=== PATIENT | male | born 1965 | race American Indian/Alaskan Native ===

== ENCOUNTER 2016-04-17 23:06 | Emergency (ER) | payer SELFPAY ==
[2016-04-17 23:55] VITALS: BP 115/71
[2016-04-18] MEDS ORDERED: TYLENOL #3 PO ONE (01:23)
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
--- NOTE | 2016-04-18 01:47 | XRay Report ---
FINAL REPORT PROCEDURE: XR ANKLE 3 LT TECHNIQUE: LEFT ankle radiographs, AP, lateral, and oblique views. CPT 25075 HISTORY: fall/pain COMPARISON: No prior studies are available for comparison. FINDINGS: Fracture (s) and/or Dislocation(s): None. Alignment: The alignment is normal. Mild spur formation off of the distal tibia.. Joint space(s): Normal. Soft tissues: Minimal soft tissue swelling. Bone mineralization: Normal. Foreign bodies: None. Calcaneal spurring: None. IMPRESSION: There is no evidence of an acute fracture. Mild arthritis..
[2016-04-18] MEDS ORDERED: TRIPLE ANTIBIOTIC TP ONE (02:28)
== END 2016-04-18 02:55 | disposition home or self-care (01) ==
LOC: ED 23:06
DX: S01.511A Laceration without foreign body of lip, initial encounter (principal); S93.402A Sprain of unspecified ligament of left ankle, initial encounter; E11.9 Type 2 diabetes mellitus without complications; Z90.49 Acquired absence of other specified parts of digestive tract; F17.200 Nicotine dependence, unspecified, uncomplicated; W18.30XA Fall on same level, unspecified, initial encounter; Y93.9 Activity, unspecified; Y92.9 Unspecified place or not applicable; Y99.9 Unspecified external cause status
CPT/HCPCS: 82962; A6250

== ENCOUNTER 2016-05-07 21:55 | Emergency (ER) | payer SELFPAY ==
[2016-05-08] MEDS ORDERED: MOTRIN PO ONE (03:56)
--- NOTE | 2016-05-08 03:56 | Emergency Department Report ---
ED Lower Extremity HPI - General Chief Complaint: Extremity Injury, Lower Stated Complaint: RT KNEE PAIN Time Seen by Provider: 05/08/16 03:51 Source: patient Mode of arrival: Ambulatory Limitations: No Limitations - Related Data Previous Rx's Medication Instructions Recorded Last Taken Type Cephalexin [Keflex] 500 mg PO Q12HR #14 cap 04/18/16 Unknown Rx methOCARBAMOL [Robaxin TAB] 500 mg PO BID #20 tab 04/18/16 Unknown Rx Ibuprofen [Motrin 800 MG tab] 800 mg PO Q8HR PRN #30 tablet 05/08/16 Unknown Rx Allergies Allergy/AdvReac Type Severity Reaction Status Date / Time No Known Allergies Allergy Verified 11/29/14 22:56 ED Review of Systems ROS: Stated complaint: RT KNEE PAIN Other details as noted in HPI ED Past Medical Hx - Past Medical History Hx Diabetes: Yes - Surgical History Hx Appendectomy: Yes Additional Surgical History: HERNIA SURGERY - Social History Smoking Status: Light Tobacco Smoker Substance Use Type: Alcohol - Medications Home Medications: Home Medications Medication Instructions Recorded Confirmed Last Taken Type Cephalexin [Keflex] 500 mg PO Q12HR #14 cap 04/18/16 Unknown Rx methOCARBAMOL [Robaxin TAB] 500 mg PO BID #20 tab 04/18/16 Unknown Rx Ibuprofen [Motrin 800 MG tab] 800 mg PO Q8HR PRN #30 tablet 05/08/16 Unknown Rx ED Physical Exam - General Limitations: No Limitations General appearance: alert, in no apparent distress - Expanded Lower Extremity Exam Right Knee exam: Present: tenderness, swelling, pain/laxity with valgus, pain/laxity with varus. Absent: abrasion, laceration, deformity, crepidus, dislocation, erythema, full knee extension ED Course Vital Signs 05/07/16 05/08/16 22:11 03:30 Temperature 98.3 F 98.1 F Pulse Rate 100 H 93 H Respiratory 18 18 Rate Blood Pressure 108/66 Blood Pressure 106/73 [Left] O2 Sat by Pulse 98 98 Oximetry ED Lower Extremity MDM - Radiology Data Radiology results: image reviewed FINAL REPORT EXAM: XR KNEE 1-2V RT HISTORY: fall with knee pain and swelling TECHNIQUE: 2 views of the right knee. PRIORS: None FINDINGS: Joint spaces are maintained. Small joint effusion. There is an osseous density 10 x 3 mm superficial to the patella. This appears well-corticated and may relate to a remote injury. There is some soft tissue swelling superficial to the patella as well. IMPRESSION: 1. Prepatellar soft tissue swelling. Small joint effusion. Osseous density superficial of the patella appears to be chronic, correlate for point tenderness. Critical care attestation.: If time is entered above; I have spent that time in minutes in the direct care of this critically ill patient, excluding procedure time. ED Disposition Clinical Impression: Knee pain, acute Qualifiers: Laterality: right Qualified Code(s): M25.561 - Pain in right knee Disposition: DISCHARGED TO HOME OR SELFCARE Is pt being admited?: No Does the pt Need Aspirin: No Condition: Stable Additional Instructions: It's very important for you to follow with orthopedic within 3-4 days. Take ibuprofen as prescribed. Prescriptions: Ibuprofen [Motrin 800 MG tab] 800 mg PO Q8HR PRN #30 tablet PRN Reason: Pain Referrals: PRIMARY MD DASIA [Primary Care Provider] - 3-5 Days ROMY FELIX MD [Staff Physician] - 3-5 Days IVAN MOSQUEDA MD [Staff Physician] - 3-5 Days Forms: Work/School Release Form(ED)
--- NOTE | 2016-05-08 04:54 | XRay Report ---
FINAL REPORT EXAM: XR KNEE 1-2V RT HISTORY: fall with knee pain and swelling TECHNIQUE: 2 views of the right knee. PRIORS: None FINDINGS: Joint spaces are maintained. Small joint effusion. There is an osseous density 10 x 3 mm superficial to the patella. This appears well-corticated and may relate to a remote injury. There is some soft tissue swelling superficial to the patella as well. IMPRESSION: 1. Prepatellar soft tissue swelling. Small joint effusion. Osseous density superficial of the patella appears to be chronic, correlate for point tenderness.
[2016-05-08 05:25] VITALS: BP 110/72
== END 2016-05-08 05:22 | disposition home or self-care (01) ==
LOC: ED 21:55
DX: M25.561 Pain in right knee (principal); E11.9 Type 2 diabetes mellitus without complications; F17.200 Nicotine dependence, unspecified, uncomplicated; Z90.49 Acquired absence of other specified parts of digestive tract

== ENCOUNTER 2016-09-17 22:13 | Emergency (ER) | payer SELFPAY ==
[2016-09-17 22:30] VITALS: BP 114/76
== END 2016-09-18 01:52 | disposition left against medical advice (07) ==
LOC: ED 22:13
DX: K13.79 Other lesions of oral mucosa (principal); Z53.21 Procedure and treatment not carried out due to patient leaving prior to being seen by health care provider

== ENCOUNTER 2016-09-18 23:40 | Emergency (ER) | payer SELFPAY ==
--- NOTE | 2016-09-19 04:13 | Emergency Department Report ---
ED ENT HPI - General Chief complaint: Dental/Oral Stated complaint: ABSCESS IN MOUTH/SWELLILNG Time Seen by Provider: 09/19/16 03:50 Source: patient Mode of arrival: Ambulatory Limitations: No Limitations - History of Present Illness complaint: tooth pain Onset/Timin -: week(s) Location: tooth # (18 &31) Severity: moderate Severity scale (0 -10): 4 Quality: aching, sharp Consistency: constant Improves with: none Worsens with: eating Context- Dental: history of dental caries Associated Symptoms: toothache - Related Data Previous Rx's Medication Instructions Recorded Last Taken Type Cephalexin [Keflex] 500 mg PO Q12HR #14 cap 04/18/16 Unknown Rx methOCARBAMOL [Robaxin TAB] 500 mg PO BID #20 tab 04/18/16 Unknown Rx Ibuprofen [Motrin 800 MG tab] 800 mg PO Q8HR PRN #30 tablet 05/08/16 Unknown Rx Ibuprofen [Motrin 800 MG tab] 800 mg PO Q8HR PRN #30 tablet 09/19/16 Unknown Rx Penicillin Vk [Veetids TAB] 250 mg PO QID #40 tablet 09/19/16 Unknown Rx Allergies Allergy/AdvReac Type Severity Reaction Status Date / Time No Known Allergies Allergy Verified 11/29/14 22:56 ED Dental HPI - General Chief complaint: Dental/Oral Stated complaint: ABSCESS IN MOUTH/SWELLILNG Time Seen by Provider: 09/19/16 03:50 Source: patient Mode of arrival: Ambulatory Limitations: No Limitations - History of Present Illness complaint: tooth pain Onset/Timin -: week(s) Severity: moderate Quality: aching Consistency: constant Worsens with: eating Context- Dental: history of dental caries Dental Associated Symptons: No: Headache, Earache, Sore Throat, Gum Swelling, Fever - Related Data Previous Rx's Medication Instructions Recorded Last Taken Type Cephalexin [Keflex] 500 mg PO Q12HR #14 cap 04/18/16 Unknown Rx methOCARBAMOL [Robaxin TAB] 500 mg PO BID #20 tab 04/18/16 Unknown Rx Ibuprofen [Motrin 800 MG tab] 800 mg PO Q8HR PRN #30 tablet 05/08/16 Unknown Rx Ibuprofen [Motrin 800 MG tab] 800 mg PO Q8HR PRN #30 tablet 09/19/16 Unknown Rx Penicillin Vk [Veetids TAB] 250 mg PO QID #40 tablet 09/19/16 Unknown Rx Allergies Allergy/AdvReac Type Severity Reaction Status Date / Time No Known Allergies Allergy Verified 11/29/14 22:56 ED Review of Systems ROS: Stated complaint: ABSCESS IN MOUTH/SWELLILNG Other details as noted in HPI Constitutional: denies: chills, fever Eyes: denies: eye pain, eye discharge, vision change ENT: other (dental pain ) Respiratory: denies: cough, shortness of breath, wheezing Cardiovascular: denies: chest pain, palpitations Endocrine: no symptoms reported Gastrointestinal: denies: abdominal pain, nausea, diarrhea Musculoskeletal: denies: back pain, joint swelling, arthralgia Skin: denies: rash, lesions Neurological: denies: headache, weakness, paresthesias Psychiatric: denies: anxiety, depression ED Past Medical Hx - Past Medical History Previous Medical History?: Yes Hx Diabetes: Yes - Surgical History Past Surgical History?: Yes Hx Appendectomy: Yes Additional Surgical History: HERNIA SURGERY - Social History Smoking Status: Never Smoker Substance Use Type: Alcohol - Medications Home Medications: Home Medications Medication Instructions Recorded Confirmed Last Taken Type Cephalexin [Keflex] 500 mg PO Q12HR #14 cap 04/18/16 Unknown Rx methOCARBAMOL [Robaxin TAB] 500 mg PO BID #20 tab 04/18/16 Unknown Rx Ibuprofen [Motrin 800 MG tab] 800 mg PO Q8HR PRN #30 tablet 05/08/16 Unknown Rx Ibuprofen [Motrin 800 MG tab] 800 mg PO Q8HR PRN #30 tablet 09/19/16 Unknown Rx Penicillin Vk [Veetids TAB] 250 mg PO QID #40 tablet 09/19/16 Unknown Rx ED Physical Exam - General Limitations: No Limitations General appearance: alert, in no apparent distress - Head Head exam: Present: atraumatic, normocephalic - Eye Eye exam: Present: normal appearance, PERRL, EOMI Pupils: Present: normal accommodation - ENT ENT exam: Present: other (dental caries ) - Expanded ENT Exam Expanded Mouth exam: Present: tongue normal. Absent: drooling, trismus, laceration Teeth exam: Present: dental caries, dental tenderness # (17 &31 no feocal abscess mild gum erythema and pain ) Throat exam: Positive: normal inspection - Neck Neck exam: Present: normal inspection - Respiratory Respiratory exam: Present: normal lung sounds bilaterally. Absent: respiratory distress, wheezes - Cardiovascular Cardiovascular Exam: Present: regular rate, normal rhythm. Absent: systolic murmur, diastolic murmur, rubs, gallop - GI/Abdominal GI/Abdominal exam: Present: soft, normal bowel sounds - Rectal Rectal exam: Present: deferred - Extremities Exam Extremities exam: Present: normal inspection - Back Exam Back exam: Present: normal inspection - Neurological Exam Neurological exam: Present: alert, oriented X3 - Psychiatric Psychiatric exam: Present: normal affect, normal mood - Skin Skin exam: Present: warm, dry, intact, normal color. Absent: rash ED Course Vital Signs 09/18/16 23:42 Temperature 97.7 F Pulse Rate 96 H Respiratory 18 Rate Blood Pressure 118/77 [Right] O2 Sat by Pulse 97 Oximetry ED Medical Decision Making - Medical Decision Making pt is a 51 y/o aam with hx of dental caries who presents for same with exacerbation of 1 week pain is 4/10 aching exacerbated by hot/cold sensation, no focal abscess no trismus no edema pt is tolerating po intake without difficulty at this time. Critical care attestation.: If time is entered above; I have spent that time in minutes in the direct care of this critically ill patient, excluding procedure time. ED Disposition Clinical Impression: Infected dental caries Disposition: TO HOME OR SELFCARE Is pt being admited?: No Does the pt Need Aspirin: No Condition: Good Instructions: Dental Caries (ED) Prescriptions: Ibuprofen [Motrin 800 MG tab] 800 mg PO Q8HR PRN #30 tablet PRN Reason: Pain Penicillin Vk [Veetids TAB] 250 mg PO QID #40 tablet Forms: Work/School Release Form(ED) Time of Disposition: 04:18
[2016-09-19 04:28] VITALS: BP 122/76
== END 2016-09-19 04:26 | disposition home or self-care (01) ==
LOC: ED 23:40
DX: K02.9 Dental caries, unspecified (principal); E11.9 Type 2 diabetes mellitus without complications
CPT/HCPCS: 99282

== ENCOUNTER 2016-10-30 18:37 | Inpatient (IN) | payer OTHER ==
[2016-10-30 19:24] LABS: Basophils % (Auto) 0.6 % (0.0-1.8); Eosinophils % (Auto) 1.4 % (0.0-4.3); Hematocrit 40.4 % (35.5-45.6); Hemoglobin 13.5 gm/dl (11.8-15.2); Mean Corpuscular HGB Conc 34 % (32-34); Mean Corpuscular Hemoglobin 29 pg (28-32); Mean Corpuscular Volume 87 fl (84-94); Platelet Count 237 K/mm3 (140-440); Red Blood Count 4.63 M/mm3 (3.65-5.03); Red Cell Distribution Width 13.3 % (13.2-15.2); White Blood Count 4.7 K/mm3 (4.5-11.0)
[2016-10-30 19:42] LABS: Anion Gap 21 mmol/L; Blood Urea Nitrogen 16 mg/dL (9-20); Calcium 8.7 mg/dL (8.4-10.2); Carbon Dioxide 25 mmol/L (22-30); Glucose 279 mg/dL (75-100); Potassium 4.1 mmol/L (3.6-5.0); Sodium 139 mmol/L (137-145)
[2016-10-30] MEDS ORDERED: PERCOCET 5/325 PO ONE (19:54)
[2016-10-30] MEDS ORDERED: PERCOCET 5/325 ONE (19:56)
[2016-10-30] MEDS ORDERED: NITROSTAT SL PRN (20:28)
--- NOTE | 2016-10-30 20:29 | Emergency Department Report ---
ED General Adult HPI - General Chief complaint: Chest Pain Stated complaint: CHEST PAIN Time Seen by Provider: 10/30/16 20:18 Source: patient, RN notes reviewed, old records reviewed Mode of arrival: Ambulatory Limitations: Other (patient is a poor historian) - History of Present Illness Initial comments: This is a 51-year-old male. He is previously unknown to me. The patient has a past medical history of ventricular tachycardia, with a [employer] defibrillator. Also has a history of diabetes, hypertension, recurrent syncope, polysubstance abuse, ejection fraction of 30-35%. Patient recently admitted to [facility], had extensive workup done, and had defibrillator placed last September. The patient presents to the ER today complaining of chest pain and syncope. The chest pain is central, and does not radiate to the back, arms or neck. There is no vomiting or diaphoresis. Patient is unable to describe exacerbating or relieving factors to syncope. He has complains of mild global throbbing headache, with bilateral foot numbness. He reports his last episode of syncope was this past Thursday. -: Gradual Location: chest Radiation: non-radiation Severity scale (0 -10): 6 Quality: aching Consistency: intermittent Improves with: none Worsens with: none Associated Symptoms: chest pain, cough, loss of appetite, malaise, shortness of breath, syncope, weakness - Related Data Previous Rx's Medication Instructions Recorded Last Taken Type Aspirin [Aspirin BABY CHEW TAB] 81 mg PO QDAY #30 tab.chew 10/31/16 Unknown Rx AtorvaSTATin [Lipitor] 40 mg PO QHS #30 tablet 10/31/16 Unknown Rx Carvedilol [Coreg] 3.125 mg PO BID #60 tablet 10/31/16 Unknown Rx Gabapentin [Neurontin] 300 mg PO Q8HR #90 capsule 11/01/16 Unknown Rx Insulin Aspart Prot/Aspart(Nf) 10 units SQ BID 30 Days 11/01/16 Unknown Rx [Novolog Mix 70/30] metFORMIN [Glucophage] 1,000 mg PO BIDDIAB #60 tablet 11/01/16 Unknown Rx Allergies Allergy/AdvReac Type Severity Reaction Status Date / Time No Known Allergies Allergy Verified 11/29/14 22:56 ED Review of Systems ROS: Stated complaint: CHEST PAIN Other details as noted in HPI Constitutional: malaise Eyes: denies: vision change ENT: denies: epistaxis Respiratory: shortness of breath Cardiovascular: chest pain, syncope Gastrointestinal: denies: abdominal pain Genitourinary: as per HPI Musculoskeletal: arthralgia, myalgia Skin: denies: lesions Neurological: weakness Psychiatric: anxiety ED Past Medical Hx - Past Medical History Previous Medical History?: Yes Hx Hypertension: Yes Hx Diabetes: Yes - Surgical History Hx Appendectomy: Yes Additional Surgical History: HERNIA SURGERY - Social History Smoking Status: Never Smoker Substance Use Type: None - Medications Home Medications: Home Medications Medication Instructions Recorded Confirmed Last Taken Type Aspirin [Aspirin BABY CHEW TAB] 81 mg PO QDAY #30 tab.chew 10/31/16 Unknown Rx AtorvaSTATin [Lipitor] 40 mg PO QHS #30 tablet 10/31/16 Unknown Rx Carvedilol [Coreg] 3.125 mg PO BID #60 tablet 10/31/16 Unknown Rx Gabapentin [Neurontin] 300 mg PO Q8HR #90 capsule 11/01/16 Unknown Rx Insulin Aspart Prot/Aspart(Nf) 10 units SQ BID 30 Days 11/01/16 Unknown Rx [Novolog Mix 70/30] metFORMIN [Glucophage] 1,000 mg PO BIDDIAB #60 tablet 11/01/16 Unknown Rx ED Physical Exam - General Limitations: No Limitations General appearance: alert, in no apparent distress - Head Head exam: Present: atraumatic, normocephalic - Eye Eye exam: Present: normal appearance, EOMI, other (visual acuity intact to finger counting, color perception, reading at a close distance). Absent: nystagmus - ENT ENT exam: Present: normal exam, normal orophraynx, mucous membranes moist, normal external ear exam - Neck Neck exam: Present: normal inspection, full ROM - Respiratory Respiratory exam: Present: normal lung sounds bilaterally. Absent: respiratory distress, wheezes, rales, rhonchi, stridor, chest wall tenderness, accessory muscle use, decreased breath sounds, prolonged expiratory - Cardiovascular Cardiovascular Exam: Present: regular rate, normal rhythm, normal heart sounds. Absent: systolic murmur, diastolic murmur, rubs, gallop - GI/Abdominal GI/Abdominal exam: Present: soft, normal bowel sounds. Absent: distended, tenderness, guarding, pulsatile mass - Rectal Rectal exam: Present: deferred - Extremities Exam Extremities exam: Present: normal inspection, normal capillary refill. Absent: pedal edema, joint swelling, calf tenderness - Back Exam Back exam: Present: normal inspection, full ROM. Absent: tenderness, CVA tenderness (R), paraspinal tenderness, vertebral tenderness - Neurological Exam Neurological exam: Present: alert, oriented X3, other (Extraocular movements intact. Tongue midline. No facial droop. Facial sensation intact to light touch in the V1, V2, V3 distribution bilaterally. 5 and 5 strength in 4 extremities.. Sensation is intact to light touch in 4 extremities.). Absent: motor sensory deficit - Psychiatric Psychiatric exam: Present: normal affect, normal mood - Skin Skin exam: Present: warm, dry, intact, normal color. Absent: rash ED Course Vital Signs 10/30/16 10/30/16 10/30/16 18:38 18:54 19:00 Temperature 98.4 F Pulse Rate 91 H 92 H 85 Respiratory 16 14 Rate Blood Pressure 111/74 103/66 O2 Sat by Pulse 99 100 Oximetry 10/30/16 10/30/16 10/30/16 19:30 20:00 21:04 Temperature Pulse Rate 84 83 Respiratory 21 16 Rate Blood Pressure 96/59 106/73 106/73 O2 Sat by Pulse 100 100 100 Oximetry 10/30/16 10/30/16 10/30/16 21:30 22:00 23:22 Temperature Pulse Rate 84 86 74 Respiratory 17 20 Rate Blood Pressure 106/73 106/73 107/65 O2 Sat by Pulse 100 100 100 Oximetry 10/30/16 10/30/16 10/31/16 23:30 23:49 00:00 Temperature Pulse Rate 71 75 74 Respiratory 12 13 13 Rate Blood Pressure 106/63 106/63 108/70 O2 Sat by Pulse 100 100 100 Oximetry 10/31/16 10/31/16 10/31/16 00:30 01:00 01:30 Temperature Pulse Rate 74 68 71 Respiratory 14 12 25 H Rate Blood Pressure 104/65 106/59 107/65 O2 Sat by Pulse 100 100 100 Oximetry 10/31/16 10/31/16 10/31/16 02:00 02:30 03:00 Temperature Pulse Rate 71 68 65 Respiratory 19 13 9 L Rate Blood Pressure 108/70 92/54 92/54 O2 Sat by Pulse 100 100 100 Oximetry - Reevaluation(s) Reevaluation #1: 10/30/16 22:35 Differential diagnosis: Arrhythmia, structural cardiac disease, electrolyte imbalance, cardiomyopathy, neuropathy, polysubstance abuse, intracranial injury , pneumonia, urinary tract infection Assessment and plan: 51-year-old male with documented history of ventricular tachycardia with prophylactic Medtronic ICD device, he is a poor historian. Patient has a GCS of 15, with an NIH score of 0, and is clinically sober at this time. No midline cervical spine tenderness. Review of recent discharge summary from previous hospital ([facility]) indicate that patient abuses alcohol and cocaine. I have discussed this with the [employer] public health representative, Varghese, and they will perform a device interrogation in the morning. Noncontrast CT scan of the brain is negative. Given recent hospital admission, d-dimer sent, elevated, and CT scan of the chest is pending. Patient will require admission for recurrent syncope, and I will present his case to the hospital physician once his CT scan has resulted. Reevaluation #2: 10/31/16 00:07 CT scan of the chest is negative. The Hospital physician, Dr. Ernst, accepts patient to her service. ED Medical Decision Making - Lab Data Result diagrams: 10/30/16 19:07 10/30/16 19:07 Vital Signs 10/30/16 18:54 Temperature 98.4 F Pulse Rate 92 H Respiratory 16 Rate Blood Pressure 111/74 O2 Sat by Pulse 99 Oximetry Lab Results 10/30/16 10/30/16 10/30/16 Range/Units 18:49 19:07 19:07 WBC 4.7 (4.5-11.0) K/mm3 RBC 4.63 (3.65-5.03) M/mm3 Hgb 13.5 (11.8-15.2) gm/dl Hct 40.4 (35.5-45.6) % MCV 87 (84-94) fl MCH 29 (28-32) pg MCHC 34 (32-34) % RDW 13.3 (13.2-15.2) % Plt Count 237 (140-440) K/mm3 Lymph % (Auto) 37.7 H (13.4-35.0) % [place] % (Auto) 11.3 H (0.0-7.3) % Eos % (Auto) 1.4 (0.0-4.3) % Baso % (Auto) 0.6 (0.0-1.8) % Lymph # 1.8 (1.2-5.4) K/mm3 [place] # 0.5 (0.0-0.8) K/mm3 Eos # 0.1 (0.0-0.4) K/mm3 Baso # 0.0 (0.0-0.1) K/mm3 Seg Neutrophils % 49.0 (40.0-70.0) % Seg Neutrophils # 2.3 (1.8-7.7) K/mm3 PT (12.2-14.9) Sec. INR (0.87-1.13) D-Dimer (0-234) ng/mlDDU Sodium 139 (137-145) mmol/L Potassium 4.1 (3.6-5.0) mmol/L Chloride 97.0 L (98-107) mmol/L Carbon Dioxide 25 (22-30) mmol/L Anion Gap 21 mmol/L BUN 16 (9-20) mg/dL Creatinine 1.3 (0.8-1.5) mg/dL Estimated GFR > 60 ml/min BUN/Creatinine Ratio 12.30 % Glucose 279 H (75-100) mg/dL POC Glucose 302 H (70-105) Calcium 8.7 (8.4-10.2) mg/dL Magnesium (1.7-2.3) mg/dL Troponin T < 0.010 (0.00-0.029) ng/mL NT-Pro-B Natriuret Pep (0-450) pg/mL 10/30/16 10/30/16 Range/Units 19:07 20:28 WBC (4.5-11.0) K/mm3 RBC (3.65-5.03) M/mm3 Hgb (11.8-15.2) gm/dl Hct (35.5-45.6) % MCV (84-94) fl MCH (28-32) pg MCHC (32-34) % RDW (13.2-15.2) % Plt Count (140-440) K/mm3 Lymph % (Auto) (13.4-35.0) % [place] % (Auto) (0.0-7.3) % Eos % (Auto) (0.0-4.3) % Baso % (Auto) (0.0-1.8) % Lymph # (1.2-5.4) K/mm3 [place] # (0.0-0.8) K/mm3 Eos # (0.0-0.4) K/mm3 Baso # (0.0-0.1) K/mm3 Seg Neutrophils % (40.0-70.0) % Seg Neutrophils # (1.8-7.7) K/mm3 PT 14.1 (12.2-14.9) Sec. INR 1.10 (0.87-1.13) D-Dimer 248.86 H (0-234) ng/mlDDU Sodium (137-145) mmol/L Potassium (3.6-5.0) mmol/L Chloride (98-107) mmol/L Carbon Dioxide (22-30) mmol/L Anion Gap mmol/L BUN (9-20) mg/dL Creatinine (0.8-1.5) mg/dL Estimated GFR ml/min BUN/Creatinine Ratio % Glucose (75-100) mg/dL POC Glucose (70-105) Calcium (8.4-10.2) mg/dL Magnesium 2.00 (1.7-2.3) mg/dL Troponin T (0.00-0.029) ng/mL NT-Pro-B Natriuret Pep 5.56 (0-450) pg/mL - EKG Data -: EKG Interpreted by Me EKG shows normal: sinus rhythm Rate: normal - EKG Data 10/30/16 22:34 normal sinus, 90 beats per minute, QTC 464 ms, poor over progression, abnormal EKG, not morphologically consistent with stemi - Radiology Data Radiology results: report reviewed, image reviewed interpreted by me: X-ray the chest is negative. Left-sided AICD device is noted. Noncontrast CT scan of the brain is negative for acute disease Critical care attestation.: If time is entered above; I have spent that time in minutes in the direct care of this critically ill patient, excluding procedure time. ED Disposition Clinical Impression: Syncope, Chest pain Disposition: OP ADMIT IP TO THIS HOSP Is pt being admited?: Yes Does the pt Need Aspirin: Yes Condition: Stable
[2016-10-30 21:00] LABS: INR 1.1 (0.87-1.13)
--- NOTE | 2016-10-30 21:08 | Cat Scan Report ---
FINAL REPORT PROCEDURE: CT HEAD/BRAIN WO CON TECHNIQUE: Computerized tomography of the head was performed without contrast material. HISTORY: syncope foot numbness COMPARISON: No prior studies are available for comparison. FINDINGS: Brain: Brain density appears normal. No evidence of intracranial hemorrhage. No parenchymal hemorrhage, mass lesions or mass effect are seen. No abnormal extraxial fluid collects or masses are seen. Ventricles: Ventricles are normal size and are midline. Bone Windows: No evidence of skull fracture. Paranasal sinuses: Visualized portions appear clear. Mastoid air cells: Clear IMPRESSION: Negative exam.
[2016-10-30] MEDS ORDERED: BABY ASPIRIN PO ONE (22:37)
--- NOTE | 2016-10-30 23:25 | Cat Scan Report ---
FINAL REPORT PROCEDURE: CT ANGIO CHEST TECHNIQUE: Computerized tomographic angiography of the chest was performed during the IV injection of iodinated nonionic contrast including image processing. The image data was postprocessed using 2-dimensional multiplanar reformatted (MPR) and 3-dimensional (MIP and/or volume rendered) techniques. HISTORY: Chest pain. Syncope. Evaluate abnormality. COMPARISON: No prior studies are available for comparison. FINDINGS: Pulmonary outflow tract, right and left main pulmonary arteries and their proximal branches: Clear, no filling defects seen to suggest pulmonary embolus. Pericardium: No evidence of pericardial effusion. Thoracic aorta: No evidence of aneurysmal dilatation or dissection. Coronary arteries: Appear to be partially calcified suggesting atherosclerotic disease.. Mediastinum and hilar regions: Nonspecific subcentimeter lymph nodes are visualized. No pathologically enlarged lymph nodes or masses are identified. Lung [place]: Small amount of dependent atelectasis is visualized. Lungs otherwise are clear. Upper abdomen: No acute or focal abnormality is seen. Other: None IMPRESSION: No evidence of pulmonary embolus, aortic aneurysm or dissection. There appear to be calcifications within the coronary arteries suggesting atherosclerotic disease of the coronary arteries. Small amount of dependent atelectasis is visualized. Lungs otherwise are clear.
[2016-10-31] MEDS ORDERED: TYLENOL PO PRN (01:55)
[2016-10-31] MEDS ORDERED: ZOFRAN IV PRN (01:55)
[2016-10-31] MEDS ORDERED: MILK OF MAGNESIA PO PRN (01:55)
[2016-10-31] MEDS ORDERED: DULCOLAX PR PRN (01:55)
--- NOTE | 2016-10-31 02:01 | History and Physical Report ---
History of Present Illness Date of examination: 10/31/16 History of present illness: 51-year-old man history of recurrent syncope, nonischemic cardiomyopathy, diabetes comes emergency room with complaint of syncope while he was at work, he does not know how long he passed out for. Also complaining of chest pain in the left chest which he described as sharp pain, intermittent in nature lasting for 5-10 minutes, intensity 5/10, no radiation any cannot identify exacerbating or relieving factors. Admits to shortness breath, no nausea vomiting, diaphoresis or palpitation. Records were reviewed from [facility], the patient was discharged just discharged. He was admitted there for syncope and chest pain. A pacemaker was placed, his EF is 30%, defibrillated was not placed secondary to his ongoing drug use, as well as moderate to have V. tach. A cardiac scan was done which shows 5% reversible defect Constitutional: no fever, no chills, no weight loss Ears, eyes, nose, mouth and throat: no nasal congestion, no nasal discharge, no sinus pressure, no vision change, no red eye. Neck: No neck pain or rigidity. Cardiovascular: no orthopnea, no palpitations, no leg swelling Respiratory: No cough, no congestion, no wheezing Gastrointestinal: abdominal pain, hematochezia, no nausea, no vomiting Genitourinary : no dysuria, frequency , no hematuria Musculoskeletal: no joint swelling or muscle ache Integumentary: no rash, no pruritis Neurological: no parathesias, no numbness, no focal weakness Endocrine: no cold or heat intolerance, no polyuria or polydipsia Hematologic/Lymphatic: no easy bruising, no easy bleeding, no gland swelling Allergic/Immunologic: no urticaria, no angioedema. PAST MEDICAL HISTORY:nonischemic cardiomyopathy, diabetes PAST SURGICAL HISTORY:pacemaker, hernia repair FAMILY HISTORY:Hypertension SOCIAL HISTORY: Admits to tobacco use, alcohol, he denies drug Medications and Allergies Allergies Allergy/AdvReac Type Severity Reaction Status Date / Time No Known Allergies Allergy Verified 11/29/14 22:56 Home Medications Medication Instructions Recorded Confirmed Last Taken Type Unobtainable 10/31/16 10/31/16 Unknown History Active Meds: Active Medications Nitroglycerin (Nitrostat) 0.4 mg SL .Q5MIN PRN PRN Reason: Chest Pain Exam - Physical Exam Narrative exam: Physical exam - Constitutional Vitals: Temp Pulse Resp BP Pulse Ox 98.4 F 71 12 106/63 100 10/30/16 18:54 10/30/16 23:30 10/30/16 23:30 10/30/16 23:30 10/30/16 23:30 Results - Labs CBC & Chem 7: 10/30/16 19:07 10/30/16 19:07 Labs: Abnormal lab results 10/30/16 10/30/16 10/30/16 Range/Units 18:49 19:07 19:07 Lymph % (Auto) 37.7 H (13.4-35.0) % [place] % (Auto) 11.3 H (0.0-7.3) % D-Dimer (0-234) ng/mlDDU Chloride 97.0 L (98-107) mmol/L Glucose 279 H (75-100) mg/dL POC Glucose 302 H (70-105) Total Creatine Kinase (55-170) units/L 10/30/16 10/30/16 Range/Units 20:28 23:03 Lymph % (Auto) (13.4-35.0) % [place] % (Auto) (0.0-7.3) % D-Dimer 248.86 H (0-234) ng/mlDDU Chloride (98-107) mmol/L Glucose (75-100) mg/dL POC Glucose (70-105) Total Creatine Kinase 355 H (55-170) units/L Assessment and Plan Assessment Recurrent syncope Chest pain Nonischemic cardiomyopathy Diabetes Plan Admit to medicine Check cardiac enzymes, consult cardiology ER physician has scheduled [facility] to see the patient Check fingersticks and initiate insulin sliding scale continue appropriate outpatient medications, start DVT prophylaxis
[2016-10-31 02:51] LABS: Creatine Kinase 379 units/L (55-170)
--- NOTE | 2016-10-31 03:30 | Admit Criteria Form ---
Admission Criteria Documentation: SYNCOPE Clinical Indications for Admission to Inpatient Care ( Place 'X' for any and all applicable criteria): Admission is indicated for syncope and ANY ONE of the following (1)(2)(3)(4)(5) (6)(7) : [X ]I. Inpatient admission required rather than observation care (Also use Syncope: Observation Care Criteria as appropriate) because of ANY ONE of the following: [ ]a) Hemodynamic instability that is severe or persistent [ ]b) Cardiac arrhythmias of immediate concern identified or strongly suspected (eg, needs electrophysiologic study) [ ]c) Acute coronary syndrome identified (Also use Myocardial Infarction or Angina Criteria form ) [ ]d) Structural cardiac disorder (eg, aortic stenosis) suspected as cause that requires immediate correction [ ]e) Respiratory symptoms (eg, dyspnea, tachypnea) that are severe or persistent [ ]f) Neurologic signs or symptoms that are severe or persistent ( eg, stroke, seizures, altered mental status) [ ]g) Severe electrolyte abnormalities requiring inpatient care [ ]h) Supplemental oxygen or respiratory treatment for over 24 hrs that are performable only in acute inpatient setting [ ]i) IV fluid to replace significant ongoing (eg, for over 24 hrs ) losses (>3 L/m2 per day) [ ]j) Continuous intravenous infusion of anticoagulation, platelet inhibitor, vasoactive, or antiarrhythmic medication(15)(16) [ ]k) Pulmonary artery catheter monitoring [ ]l) Temporary pacemaker placement(17) [ ]m) Emergent cardioversion(18) [ X]n) Other conditions, treatment or monitoring requiring inpatient admission [ ]II. Suspicion of imminently dangerous cause (eg, rare causes like pericardial tamponade, pulmonary embolism) [ ]III. Syncope causing severe injury requiring hospitalization Extended stay beyond goal length of stay may be needed for(28) [ ]a) Dangerous arrhythmia(15)(23)(27)(29) [ ]b) Myocardial ischemia [ ]c) Seizure disorder [ ]d) Syncope-related injuries The original [employer] content created by [employer] has been revised. The portions of the content which have been revised are identified through the use of italic text or in bold, and [employer] has neither reviewed nor approved the modified material. All other unmodified content is copyright [employer]. Please see references footnoted in the original [facility] edition 2016 Admission Criteria Met: Yes
[2016-10-31] MEDS: PERCOCET 5/325 PO PRN ×3 (04:15→21:13)
--- NOTE | 2016-10-31 07:56 | XRay Report ---
AP CHEST: HISTORY: chest pain AP view of the chest demonstrates a normal mediastinal and cardiac contour with clear lungs and normal bony and soft tissue structures. 2-lead pacemaker device is in position. IMPRESSION: Unremarkable AP chest.
[2016-10-31 08:00] LABS: Creatine Kinase MB 1.9 ng/mL (0.0-4.0)
[2016-10-31 08:02] LABS: Creatine Kinase 337 units/L (55-170)
--- NOTE | 2016-10-31 09:17 | Consultation ---
History of Present Illness Consult date: 10/31/16 Consult reason: chest pain, syncope History of present illness: 51-year-old man history of recurrent syncope, nonischemic cardiomyopathy, diabetes comes emergency room with complaint of syncope while he was at work, he does not know how long he passed out for. Also complaining of chest pain in the left chest which he described as sharp pain, intermittent in nature lasting for 5-10 minutes, intensity 5/10, no radiation any cannot identify exacerbating or relieving factors. Admits to shortness breath, no nausea vomiting, diaphoresis or palpitation. Records were reviewed from [facility], the patient was discharged just discharged. He was admitted there for syncope and chest pain. A pacemaker was placed, his EF is 30-35%, defibrillated was not placed secondary to his ongoing drug use,cocaine. Patient is a poor historian.He dose not what day or date. Past History Past Medical History: diabetes, heart failure Past Surgical History: No surgical history Social history: other (cocaine abuse) Family history: no significant family history Medications and Allergies Allergies Allergy/AdvReac Type Severity Reaction Status Date / Time No Known Allergies Allergy Verified 11/29/14 22:56 Home Medications Medication Instructions Recorded Confirmed Last Taken Type Unobtainable 10/31/16 10/31/16 Unknown History Active Meds: Active Medications Acetaminophen (Tylenol) 650 mg PO Q4H PRN PRN Reason: Pain MILD(1-3)/Fever >100.5/CHAVIRA Bisacodyl (Dulcolax) 10 mg PA QDAY PRN PRN Reason: Constipation unrelieved by MOM Enoxaparin Sodium (Lovenox) 40 mg SUB-Q QDAY ROSALINDA Magnesium Hydroxide (Milk Of Magnesia) 30 ml PO Q4H PRN PRN Reason: Constipation Nitroglycerin (Nitrostat) 0.4 mg SL .Q5MIN PRN PRN Reason: Chest Pain Ondansetron HCl (Zofran) 4 mg IV Q8H PRN PRN Reason: N/V unrelieved by Reglan Oxycodone/Acetaminophen (Percocet 5/325) 1 tab PO Q6H PRN PRN Reason: Pain, Moderate (4-6) Last Admin: 10/31/16 04:15 Dose: 1 tab Review of Systems ROS unobtainable: due to mental status Physical Examination Vital Signs Pulse 91 H 10/30/16 18:38 General appearance: no acute distress HEENT: Positive: Normocephaly, Mucus Membranes Moist Neck: Positive: neck supple, trachea midline. Negative: JVD/HJR Cardiac: Positive: Regular Rate, S3 Lungs: Positive: clear to auscultation Results 10/30/16 19:07 10/30/16 19:07 Cardiac Enzymes 10/31/16 Range/Units 02:12 CK-MB (CK-2) 2.0 (0.0-4.0) ng/mL - Imaging and Cardiology Echo: report reviewed (Done on 09/23 2016. EF 30-35%.Mild TR.), image reviewed (RV. Moderately reduced RV function.Dilated inferior vena cava with < 50% respiratory variation.) - EKG Interpretation EKG: sinus rhythm, normal axis, normal QRS (EP study at [facility] showed infra his block and thought to be high risk for complete AV block causing syncopal episodes.So he had dual pacer placed 10/02/2016.) EKG interpretations - Telemetry EKG Rhythm: SVT (noted on interrogation of pacer on10/27 and 10/30 17. lasting 4 and 2 minutes 178/m and 186/m) Assessment and Plan Assessment: Atypical chest pain - reproducible with palpitation; ECG with NAF; Burt negative for AMI. Syncope Chronic systolic heart failure Elevate DDimer - chest CTA negative for PE. NICMP PPM in situ for infrahis block - placed 10/02/2016 at [facility]; no AICD placed d/t cocaine abuse DM Cocaine abuse Plan: PPM interrogated - 2 episodes of SVT (Atrial tachycardia v. atrial flutter) noted, normal device function. Lytes WNL. Cont BB. No indication for any further cardiac testing at this time. Cont telemetry.
[2016-10-31] MEDS ORDERED: LOVENOX SUB-Q SCH (10:00)
[2016-10-31] MEDS: COREG PO SCH ×2 (10:36→21:13)
[2016-10-31] MEDS: BABY ASPIRIN PO SCH (10:37)
--- NOTE | 2016-10-31 10:53 | Discharge Summary ---
Providers - Providers Date of Admission: 10/31/16 01:56 Date of discharge: 11/01/16 Attending physician: SABRINA TA Primary care physician: ROLLER PAINTER Hospitalization Condition: Stable Hospital course: 51-year-old man history of recurrent syncope, nonischemic cardiomyopathy, his EF is 30-35%, diabetes came to the emergency room with complaint of syncope while he was at work. He also complained of chest pain in the left chest which he described as sharp pain, intermittent in nature lasting for 5-10 minutes, intensity 5/10, no radiation, cannot identify exacerbating or relieving factors along with shortness breath, no nausea vomiting, diaphoresis or palpitation. Records were reviewed from [facility], the patient was just discharged. He was admitted there for syncope and chest pain. A pacemaker was placed, his EF is 30-35%, defibrillated was not placed secondary to his ongoing drug use, cocaine. Patient was a poor historian. His head CT was unremarkable, CTA chest was negative for PE. Cardiology recommended no additional intervention. Insulin was resumed to control his BG. He could not provide any name of his medications. ACEI was not prescribed due to borderline low BP. He will f/u outpt with his wire lather. DisCharge diagnosis and management: Atypical chest pain - likely costrochondritis - reproducible with palpitation; ECG with NAF; Burt negative for AMI. - no further work up per cardiology, - PPM interrogated - 2 episodes of SVT (Atrial tachycardia v. atrial flutter) noted, normal device function Syncope - Ct head umremarkable - likely from dehydration and hyperglycemia Chronic systolic heart failure - EF 30-35% - cont aspirin, statin, BB Elevate DDimer - chest CTA negative for PE. NICMP - cont aspirin, statin, BB. ACEI could be start outpt with close BP monitoring PPM in situ for infrahis block - placed 10/02/2016 at [facility], [place]; no AICD placed d/t cocaine abuse DM on insulin - A1c 11.3 - counselled to be compliant with medication Cocaine abuse - counselled at bedside, but he denies Disposition: DC-01 TO HOME OR SELFCARE Time spent for discharge: 32 minutes Core Measure Documentation - Palliative Care Palliative Care/ Comfort Measures: Not Applicable - Core Measures Any of the following diagnoses?: heart failure - Heart Failure Discharge Requirements ANTHONY/ARB for LVSD if EF <40%: No Reason for no ANTHONY/ARB: Hypotension Beta fredo at discharge: Yes Exam - Constitutional Vitals: Temp Pulse Resp BP Pulse Ox 98.4 F 86 18 147/91 96 10/31/16 08:00 10/31/16 08:00 10/31/16 08:00 10/31/16 08:00 10/31/16 08:00 General appearance: Present: no acute distress, well-nourished - EENT Eyes: Present: PERRL ENT: hearing intact, clear oral mucosa - Neck Neck: Present: supple, normal ROM - Respiratory Respiratory effort: normal Respiratory: bilateral: CTA - Cardiovascular Heart Sounds: Present: S1 & S2. Absent: rub, click - Extremities Extremities: pulses symmetrical, No edema Peripheral Pulses: within normal limits - Abdominal General gastrointestinal: Present: soft, non-tender, non-distended, normal bowel sounds - Integumentary Integumentary: Present: clear, warm, dry - Musculoskeletal Musculoskeletal: gait normal, strength equal bilaterally - Psychiatric Psychiatric: appropriate mood/affect, intact judgment & insight - Neurologic Neurologic: CNII-XII intact, moves all extremities Plan Activity: advance as tolerated Weight Bearing Status: Weight Bear as Tolerated Diet: low fat, low salt Follow up with: PRIMARY CARE,MD [Primary Care Provider] - 3-5 Days Prescriptions: AtorvaSTATin [Lipitor] 40 mg PO QHS #30 tablet Aspirin [Aspirin BABY CHEW TAB] 81 mg PO QDAY #30 tab.chew Carvedilol [Coreg] 3.125 mg PO BID #60 tablet Gabapentin [Neurontin] 300 mg PO Q8HR #90 capsule Insulin Aspart Prot/Aspart(Nf) [Novolog Mix 70/30] 10 units SQ BID 30 Days metFORMIN [Glucophage] 1,000 mg PO BIDDIAB #60 tablet
[2016-11-01] MEDS ORDERED: GLUCOPHAGE PO SCH ×2 (08:53→17:00)
[2016-11-01] MEDS ORDERED: GLUCOTROL PO SCH (09:00)
--- NOTE | 2016-11-01 09:50 | Progress Note ---
Assessment and Plan Atypical chest pain - likely costrochondritis - reproducible with palpitation; ECG with NAF; Burt negative for AMI. - no further work up per cardiology, - PPM interrogated - 2 episodes of SVT (Atrial tachycardia v. atrial flutter) noted, normal device function Syncope - Ct head umremarkable - likely from dehydration and hyperglycemia Chronic systolic heart failure - EF 30-35% - cont aspirin, statin, BB Elevate DDimer - chest CTA negative for PE. NICMP - cont aspirin, statin, BB. ACEI could be start outpt with close BP monitoring PPM in situ for infrahis block - placed 10/02/2016 at [facility], [place]; no AICD placed d/t cocaine abuse DM on insulin - will get A1c Cocaine abuse - counselled at bedside, but he denies Subjective Date of service: 10/31/16 Interval history: Pt seen and examined BG noted to be elevated above 300s pt still c/o dizziness Objective - Constitutional Vitals: Vital Signs - 12hr 10/31/16 11/01/16 11/01/16 22:00 00:09 02:30 Temperature 97.4 F L Pulse Rate 80 80 Respiratory 18 Rate Blood Pressure 95/52 O2 Sat by Pulse 99 100 Oximetry 11/01/16 11/01/16 11/01/16 05:14 07:53 08:31 Temperature 97.8 F 98.2 F Pulse Rate 75 81 Respiratory 20 18 Rate Blood Pressure 104/63 103/57 O2 Sat by Pulse 100 100 96 Oximetry General appearance: Present: no acute distress, well-nourished - EENT Eyes: PERRL, EOM intact ENT: hearing intact, clear oral mucosa Ears: bilateral: normal - Neck Neck: supple, normal ROM - Respiratory Respiratory effort: normal Respiratory: bilateral: CTA - Cardiovascular Rhythm: regular Heart Sounds: Present: S1 & S2. Absent: gallop, rub Extremities: pulses intact, No edema, normal color, Full ROM - Gastrointestinal General gastrointestinal: Present: soft, non-tender, non-distended, normal bowel sounds - Integumentary Integumentary: clear, warm, dry - Musculoskeletal Musculoskeletal: 1, strength equal bilaterally - Neurologic Neurologic: moves all extremities - Psychiatric Psychiatric: memory intact, appropriate mood/affect, intact judgment & insight - Labs CBC & Chem 7: 10/30/16 19:07 10/30/16 19:07 Labs: Abnormal lab results 10/31/16 10/31/16 11/01/16 Range/Units 11:49 16:32 02:24 POC Glucose 272 H 289 H (70-105) Hemoglobin A1c 11.3 H (4-6) % - Imaging and cardiology Chest x-ray: report reviewed CT scan - chest: report reviewed CT Scan - head: report reviewed
[2016-11-01] MEDS: BABY ASPIRIN PO SCH (10:14)
[2016-11-01] MEDS: COREG PO SCH (10:14)
[2016-11-01] MEDS: PERCOCET 5/325 PO PRN (10:17)
[2016-11-01 12:28] VITALS: BP 102/62
== END 2016-11-01 16:28 | disposition home or self-care (01) | DRG 313 ==
LOC: ED 18:37 → 4A 10-31 01:56
PROVIDERS: ADMIT Internal Medicine; ATTEND Internal Medicine
DX: R07.89 Other chest pain (principal); I42.9 Cardiomyopathy, unspecified; I50.22 Chronic systolic (congestive) heart failure; E11.9 Type 2 diabetes mellitus without complications; F14.10 Cocaine abuse, uncomplicated; I11.0 Hypertensive heart disease with heart failure; Z95.0 Presence of cardiac pacemaker; Z79.4 Long term (current) use of insulin; Z90.49 Acquired absence of other specified parts of digestive tract; Z82.49 Family history of ischemic heart disease and other diseases of the circulatory system
CPT/HCPCS: 36415; 70450; 71010; 71275; 80048; 82550; 82553; 82962; 83036; 83735; 83880; 84484; 85025; 85379; 85610; 93005; 93010; 94760; A9270-GY; J1650; J1815; Q9967

== ENCOUNTER 2017-02-17 00:16 | Emergency (ER) | payer SELFPAY ==
[2017-02-17] MEDS ORDERED: NACL 0.9% 500 ML 500 ML IV ONE (01:00)
[2017-02-17] MEDS ORDERED: SUBLIMAZE IV ONE ×2 (01:33)
[2017-02-17] MEDS ORDERED: ZOFRAN IV ONE (01:33)
--- NOTE | 2017-02-17 01:38 | XRay Report ---
FINAL REPORT EXAM: XR CHEST 1V AP HISTORY: chest pain COMPARISON: October 2016. FINDINGS: Frontal view(s) of the chest obtained. Heart normal in size. Left-sided cardiac pacer is in place. No focal consolidation or effusion. No pneumothorax. IMPRESSION: No grossly acute findings.
--- NOTE | 2017-02-17 01:40 | Cat Scan Report ---
FINAL REPORT EXAM: CT HEAD/BRAIN WO CON HISTORY: headache COMPARISON: October [address] TECHNIQUE: Axial images obtained skull base through vertex. FINDINGS: No acute intracranial hemorrhage, midline shift or pathologic extra axial fluid collection. Ventricles and cisterns are normal in size and configuration for the patient's age. Small benign perivascular spaces within the inferior basal ganglia. Perez-white differentiation preserved. Calvarium grossly intact. Visualized orbits are unremarkable. Mild mucosal thickening the paranasal sinuses. Tiny amount of fluid within the left mastoid air cells. IMPRESSION: No grossly acute intracranial abnormality.
[2017-02-17 01:51] LABS: Basophils % (Auto) 0.6 % (0.0-1.8); Eosinophils % (Auto) 0.8 % (0.0-4.3); Hematocrit 42.6 % (35.5-45.6); Hemoglobin 13.7 gm/dl (11.8-15.2); Mean Corpuscular HGB Conc 32 % (32-34); Mean Corpuscular Hemoglobin 29 pg (28-32); Mean Corpuscular Volume 89 fl (84-94); Platelet Count 215 K/mm3 (140-440); Red Blood Count 4.81 M/mm3 (3.65-5.03); Red Cell Distribution Width 13.1 % (13.2-15.2); White Blood Count 3.5 K/mm3 (4.5-11.0)
[2017-02-17 02:09] LABS: Anion Gap 19 mmol/L; BUN/Creatinine Ratio 13; Blood Urea Nitrogen 12 mg/dL (9-20); Calcium 8.4 mg/dL (8.4-10.2); Carbon Dioxide 25 mmol/L (22-30); Chloride 89.8 mmol/L (98-107); Potassium 3.9 mmol/L (3.6-5.0); Sodium 130 mmol/L (137-145)
[2017-02-17 02:26] LABS: Glucose 545 mg/dL (75-100)
[2017-02-17 05:35] LABS: Bilirubin,Urine NEG (Negative); Blood,Urine NEG (Negative); Ketones,Urine 20 mg/dL (Negative); Leukocyte Esterase,Urine NEG (Negative); Nitrite,Urine NEG (Negative); Protein,Urine <15 mg/dL mg/dL (Negative); Urobilinogen,Urine < 2.0 mg/dL (<2.0)
--- NOTE | 2017-02-17 05:45 | Emergency Department Report ---
HPI - General Chief Complaint: Chest Pain Time Seen by Provider: 02/17/17 01:02 - [facility] HPI: The patient is a 51-year-old male presents for laceration of chest pain. The patient reports chest pain for the past 2 days, nausea since severity, left- sided in location, radiating to the left arm and neck, sharp in quality, exacerbated with movement of the left arm. The patient denies fever, neck pain, parasthesias, dyspnea, cough, hemoptysis, palpitations, dizziness, syncope, unilateral leg swelling, calf muscle pain. Patient also denies cocaine or other stimulant use, history of DVT or PE, recent immobilization, or history of cancer. ED Past Medical Hx - Past Medical History Previous Medical History?: Yes Hx Hypertension: Yes Hx CVA: Yes (TIA) Hx Heart Attack/AMI: Yes Hx Congestive Heart Failure: Yes Hx Diabetes: Yes Hx Asthma: No Hx COPD: Yes - Surgical History Hx Pacemaker: Yes Hx Appendectomy: Yes Additional Surgical History: HERNIA SURGERY - Social History Smoking Status: Current Some Day Smoker Substance Use Type: None - Medications Home Medications: Home Medications Medication Instructions Recorded Confirmed Last Taken Type Aspirin [Aspirin BABY CHEW TAB] 81 mg PO QDAY #30 tab.chew 10/31/16 Unknown Rx AtorvaSTATin [Lipitor] 40 mg PO QHS #30 tablet 10/31/16 Unknown Rx Carvedilol [Coreg] 3.125 mg PO BID #60 tablet 10/31/16 Unknown Rx Gabapentin [Neurontin] 300 mg PO Q8HR #90 capsule 11/01/16 Unknown Rx Insulin Aspart Prot/Aspart(Nf) 10 units SQ BID 30 Days 11/01/16 Unknown Rx [Novolog Mix 70/30] metFORMIN [Glucophage] 1,000 mg PO BIDDIAB #60 tablet 11/01/16 Unknown Rx traMADol [Ultram 50 MG tab] 50 mg PO Q6HR PRN #15 tablet 02/17/17 Unknown Rx ED Review of Systems ROS: Stated complaint: CHEST PAIN Other details as noted in HPI Constitutional: denies: fever ENT: denies: throat or neck pain Respiratory: denies: cough, shortness of breath Cardiovascular: reports chest pain Endocrine: denies unexplained weight loss or gain Gastrointestinal: denies: abdominal pain, nausea Genitourinary: denies: dysuria Musculoskeletal: denies: leg swelling Skin: denies: rash Neurological: denies: headache Hematological/Lymphatic: denies: easy bleeding or easy bruising Psych: denies sadness or hopelessness Physical Exam - Physical Exam Vital Signs: Vital Signs 02/17/17 02/17/17 02/17/17 00:30 00:32 00:45 Temperature 98.9 F Pulse Rate 89 90 94 H Respiratory 28 H 30 H 30 H Rate Blood Pressure 123/79 137/83 122/79 O2 Sat by Pulse 98 99 94 Oximetry 02/17/17 02/17/17 02/17/17 00:48 01:00 01:42 Temperature Pulse Rate 91 H 99 H Respiratory 18 35 H 24 Rate Blood Pressure 137/81 114/74 O2 Sat by Pulse 98 93 98 Oximetry 02/17/17 02/17/17 02/17/17 01:45 02:00 02:15 Temperature Pulse Rate 97 H 97 H 98 H Respiratory 19 21 17 Rate Blood Pressure 120/77 119/75 109/79 O2 Sat by Pulse 98 96 97 Oximetry 02/17/17 02/17/17 02/17/17 02:30 02:45 03:00 Temperature Pulse Rate 92 H 89 89 Respiratory 14 13 13 Rate Blood Pressure 127/83 130/83 127/81 O2 Sat by Pulse 97 100 Oximetry 02/17/17 02/17/17 02/17/17 03:15 03:30 03:45 Temperature Pulse Rate 88 92 H 97 H Respiratory 36 H 15 16 Rate Blood Pressure 125/77 111/54 107/60 O2 Sat by Pulse 99 95 99 Oximetry 02/17/17 04:00 Temperature Pulse Rate 101 H Respiratory 19 Rate Blood Pressure 108/63 O2 Sat by Pulse 98 Oximetry Physical Exam: General: well-nourished, well-developed, no acute distress Head: Normocephalic, atraumatic Eyes: normal sclera ENT: Mucous membranes are pink and moist Neck: trachea midline, neck supple, No neck stiffness, no cervical adenopathy Respiratory: Breath sounds equal bilaterally, no wheezing, rales, or rhonchi Cardio: S1 and S2 present, no murmurs, rubs, gallops, capillary refill is brisk Abdomen: Normoactive bowel sounds, soft abdomen, no rigidity, no guarding or rebound tenderness Chest WALL/Back: + tenderness to palpation of the left chest wall, no crepitus, fluctuance, swelling, bruising Musc: No pitting edema Skin: No rash Neuro: no facial drooping, normal speech Psych: Normal affect ED Course Vital Signs 02/17/17 02/17/17 02/17/17 00:30 00:32 00:45 Temperature 98.9 F Pulse Rate 89 90 94 H Respiratory 28 H 30 H 30 H Rate Blood Pressure 123/79 137/83 122/79 O2 Sat by Pulse 98 99 94 Oximetry 02/17/17 02/17/17 02/17/17 00:48 01:00 01:42 Temperature Pulse Rate 91 H 99 H Respiratory 18 35 H 24 Rate Blood Pressure 137/81 114/74 O2 Sat by Pulse 98 93 98 Oximetry 02/17/17 02/17/17 02/17/17 01:45 02:00 02:15 Temperature Pulse Rate 97 H 97 H 98 H Respiratory 19 21 17 Rate Blood Pressure 120/77 119/75 109/79 O2 Sat by Pulse 98 96 97 Oximetry 02/17/17 02/17/17 02/17/17 02:30 02:45 03:00 Temperature Pulse Rate 92 H 89 89 Respiratory 14 13 13 Rate Blood Pressure 127/83 130/83 127/81 O2 Sat by Pulse 97 100 Oximetry 02/17/17 02/17/17 02/17/17 03:15 03:30 03:45 Temperature Pulse Rate 88 92 H 97 H Respiratory 36 H 15 16 Rate Blood Pressure 125/77 111/54 107/60 O2 Sat by Pulse 99 95 99 Oximetry 02/17/17 04:00 Temperature Pulse Rate 101 H Respiratory 19 Rate Blood Pressure 108/63 O2 Sat by Pulse 98 Oximetry ED Medical Decision Making - Lab Data Result diagrams: 02/17/17 01:30 02/17/17 01:30 - Medical Decision Making The patient was seen and examined by myself. The patient is placed on a air sampling and monitoring and continuous pulse ox. On initial evaluation, the patient was found to be in no distress. EKG was negative for findings suggestive of acute cardiac infarct. Labs and imaging are obtained. Chest x-ray is negative for pneumothorax, focal consolidation, pulmonary vascular congestion, pleural effusion, or other obvious acute cardiopulmonary disease process. Lab results revealed elevated glucose of 500, with normal venous pH is 7.4, normal bicarbonate, not consistent with DKA, and otherwise labs were non-concerning including nml levels of 2 sets of troponin. The patient given IV insulin for treatment of hyperglycemia. The patient was reevaluated and reported that their symptoms were improved. As the patient has a ALINA risk score less than 2 , and a well's score less than 2, the patient is at low risk of ACS or pulmonary emboli etiology of their symptoms. The patient is stable for discharge with outpatient follow-up. The patient is given follow-up and return instructions. The patient expressed understanding and agreed with the plan. The patient is discharged in stable condition. Critical care attestation.: If time is entered above; I have spent that time in minutes in the direct care of this critically ill patient, excluding procedure time. ED Disposition Clinical Impression: Chest pain in adult, Dehydration, Acute hyperglycemia Disposition: DC-01 TO HOME OR SELFCARE Is pt being admited?: No Does the pt Need Aspirin: No Condition: Stable Instructions: Chest Pain (ED), Dehydration (ED), Diabetic Hyperglycemia (ED) Referrals: PRIMARY CARE, [Primary Care Provider] - 3-5 Days Time of Disposition: 04:41
[2017-02-17 06:26] VITALS: BP 120/53
== END 2017-02-17 06:32 | disposition home or self-care (01) ==
LOC: ED 00:16
DX: E86.0 Dehydration (principal); E11.65 Type 2 diabetes mellitus with hyperglycemia; R07.89 Other chest pain; I10 Essential (primary) hypertension; I50.9 Heart failure, unspecified; J44.9 Chronic obstructive pulmonary disease, unspecified; F17.200 Nicotine dependence, unspecified, uncomplicated; Z90.49 Acquired absence of other specified parts of digestive tract; Z86.73 Personal history of transient ischemic attack (TIA), and cerebral infarction without residual deficits; Z95.0 Presence of cardiac pacemaker
CPT/HCPCS: 36415; 70450; 71010; 80048; 81001; 82805; 82962; 84484; 85025; 93005; 93010; 96361; 96374; 96375; 99285; J2405; J3010; J7040; J1815

== ENCOUNTER 2017-03-28 02:30 | Inpatient (IN) | payer OTHER ==
[2017-03-28 03:55] LABS: Basophils % (Auto) 0.4 % (0.0-1.8); Eosinophils % (Auto) 0.4 % (0.0-4.3); Hematocrit 38.8 % (35.5-45.6); Hemoglobin 12.8 gm/dl (11.8-15.2); Mean Corpuscular HGB Conc 33 % (32-34); Mean Corpuscular Hemoglobin 30 pg (28-32); Mean Corpuscular Volume 90 fl (84-94); Platelet Count 214 K/mm3 (140-440); Red Cell Distribution Width 13.4 % (13.2-15.2); White Blood Count 4.5 K/mm3 (4.5-11.0)
[2017-03-28 04:15] LABS: Alanine Aminotransferase 23 units/L (7-56); Albumin 3.6 g/dL (3.9-5); Albumin/Globulin Ratio 1.6 %; Alkaline Phosphatase 69 units/L (35-129); Anion Gap 25 mmol/L; BUN/Creatinine Ratio 12; Blood Urea Nitrogen 12 mg/dL (9-20); Calcium 8.2 mg/dL (8.4-10.2); Carbon Dioxide 18 mmol/L (22-30); Chloride 97.2 mmol/L (98-107); Glucose 460 mg/dL (75-100); Potassium 3.8 mmol/L (3.6-5.0); Sodium 136 mmol/L (137-145); Total Protein 5.9 g/dL (6.3-8.2)
--- NOTE | 2017-03-28 04:39 | Cat Scan Report ---
FINAL REPORT PROCEDURE: CT HEAD/BRAIN WO CON TECHNIQUE: Computerized tomography of the head was performed without contrast material. HISTORY: ams COMPARISON: 02/17/2017 FINDINGS: Skull and scalp: Normal. Paranasal sinuses: Normal. Ventricles and subarachnoid spaces: Normal. Cerebrum: No evidence of hemorrhage, acute infarction or mass . Cerebellum and brainstem: No evidence of hemorrhage, acute infarction or mass. Vasculature: Normal. Comments: None. IMPRESSION: Normal Examination
[2017-03-28 04:51] LABS: INR 0.73 (0.87-1.13)
--- NOTE | 2017-03-28 06:22 | Emergency Department Report ---
ED Chest Pain HPI - General Chief Complaint: Chest Pain Stated Complaint: CP Time Seen by Provider: 03/28/17 06:21 Source: EMS Mode of arrival: Stretcher Limitations: Altered Mental Status - History of Present Illness Initial Comments: Patient admits to excessive drinking at a [employer] last night. He complains of chest pain and shortness of breath. On arrival he was found to be lethargic by nursing staff of who detected an odor consistent with alcohol. Patient denied drug use to the nursing staff. On my arrival the patient was persistently lethargic. He was not complaining of chest pain. He appeared to be somewhat distracted. Is not complaining of shortness of breath either. Review the patient's already results and laboratory database indicated that he had a glucose of 460, CO2 of 18 and anion gap of 25. He was found to have a lactic acid level of 5.7. He was given a first dose of Zosyn and vancomycin empirically. He was placed on an insulin drip and given fluids. A CT of his head showed no evidence of acute intracranial abnormality. In fact the patient had another CT of his head on 02/17/2017 with similar findings. Chest x-ray showed no acute process. MD Complaint: chest pain -: Gradual Onset: during rest Pain Location: substernal Pain Radiation: back Severity: moderate Severity scale (0 -10): 7 Quality: heaviness Consistency: intermittent Improves With: nothing Worsens With: nothing Context: other re: denies: nausea, vomting Other Symptoms: other Treatments Prior to Arrival: none - Related Data Previous Rx's Medication Instructions Recorded Last Taken Type Aspirin [Aspirin BABY CHEW TAB] 81 mg PO QDAY #30 tab.chew 10/31/16 Unknown Rx AtorvaSTATin [Lipitor] 40 mg PO QHS #30 tablet 10/31/16 Unknown Rx Carvedilol [Coreg] 3.125 mg PO BID #60 tablet 10/31/16 Unknown Rx Gabapentin [Neurontin] 300 mg PO Q8HR #90 capsule 11/01/16 Unknown Rx Insulin Aspart Prot/Aspart(Nf) 10 units SQ BID 30 Days vial 11/01/16 Unknown Rx [Novolog Mix 70/30] metFORMIN [Glucophage] 1,000 mg PO BIDDIAB #60 tablet 11/01/16 Unknown Rx traMADol [Ultram 50 MG tab] 50 mg PO Q6HR PRN #15 tablet 02/17/17 Unknown Rx Allergies Allergy/AdvReac Type Severity Reaction Status Date / Time No Known Allergies Allergy Verified 11/29/14 22:56 Heart Score - HEART Score History: Slightly suspicious EKG: Normal Age: 45-65 Risk factors: 1-2 risk factors Troponin: < normal limit HEART Score: 2 ED Review of Systems ROS: Stated complaint: CP Other details as noted in HPI Constitutional: denies: chills, fever Eyes: denies: eye pain, eye discharge, vision change ENT: denies: ear pain, throat pain Respiratory: denies: cough, shortness of breath, wheezing Cardiovascular: denies: chest pain, palpitations Endocrine: no symptoms reported Gastrointestinal: denies: abdominal pain, nausea, diarrhea Genitourinary: denies: urgency, dysuria Musculoskeletal: denies: back pain, joint swelling, arthralgia Skin: denies: rash, lesions Neurological: denies: headache, weakness, paresthesias Psychiatric: denies: anxiety, depression Hematological/Lymphatic: denies: easy bleeding, easy bruising ED Past Medical Hx - Past Medical History Previous Medical History?: Yes Hx Hypertension: Yes Hx CVA: Yes (TIA) Hx Heart Attack/AMI: Yes Hx Congestive Heart Failure: Yes Hx Diabetes: Yes Hx Asthma: No Hx COPD: Yes - Surgical History Past Surgical History?: Yes Hx Pacemaker: Yes Hx Appendectomy: Yes Additional Surgical History: HERNIA SURGERY - Social History Smoking Status: Current Every Day Smoker Substance Use Type: Alcohol - Medications Home Medications: Home Medications Medication Instructions Recorded Confirmed Last Taken Type Aspirin [Aspirin BABY CHEW TAB] 81 mg PO QDAY #30 tab.chew 10/31/16 Unknown Rx AtorvaSTATin [Lipitor] 40 mg PO QHS #30 tablet 10/31/16 Unknown Rx Carvedilol [Coreg] 3.125 mg PO BID #60 tablet 10/31/16 Unknown Rx Gabapentin [Neurontin] 300 mg PO Q8HR #90 capsule 11/01/16 Unknown Rx Insulin Aspart Prot/Aspart(Nf) 10 units SQ BID 30 Days vial 11/01/16 Unknown Rx [Novolog Mix 70/30] metFORMIN [Glucophage] 1,000 mg PO BIDDIAB #60 tablet 11/01/16 Unknown Rx traMADol [Ultram 50 MG tab] 50 mg PO Q6HR PRN #15 tablet 02/17/17 Unknown Rx ED Physical Exam - General Limitations: Altered Mental Status General appearance: alert, in no apparent distress - Head Head exam: Present: atraumatic, normocephalic - Eye Eye exam: Present: normal appearance, PERRL, EOMI. Absent: scleral icterus - ENT ENT exam: Present: mucous membranes moist - Neck Neck exam: Present: normal inspection - Respiratory Respiratory exam: Present: normal lung sounds bilaterally. Absent: respiratory distress - Cardiovascular Cardiovascular Exam: Present: regular rate, normal rhythm. Absent: systolic murmur, diastolic murmur, rubs, gallop - GI/Abdominal GI/Abdominal exam: Present: soft, normal bowel sounds. Absent: distended, tenderness, guarding, rebound, rigid - Rectal Rectal exam: Present: deferred - Extremities Exam Extremities exam: Present: normal inspection - Back Exam Back exam: Present: normal inspection - Neurological Exam Neurological exam: Present: alert, oriented X3, CN II-XII intact. Absent: motor sensory deficit - Psychiatric Psychiatric exam: Present: normal mood, flat affect - Skin Skin exam: Present: warm, dry, intact, normal color. Absent: rash ED Course Vital Signs 03/28/17 03/28/17 03/28/17 03:06 03:15 03:18 Temperature 98.7 F Pulse Rate 83 80 Respiratory 15 24 Rate Blood Pressure 93/51 95/59 Blood Pressure [Left] O2 Sat by Pulse 89 95 91 Oximetry 03/28/17 03/28/17 03/28/17 03:23 03:30 03:42 Temperature 98.1 F Pulse Rate 88 83 Respiratory 18 13 24 Rate Blood Pressure 99/51 Blood Pressure 95/59 [Left] O2 Sat by Pulse 95 97 89 Oximetry 03/28/17 03/28/17 03/28/17 03:45 03:46 04:11 Temperature Pulse Rate 82 88 86 Respiratory 14 13 Rate Blood Pressure 103/52 103/51 Blood Pressure [Left] O2 Sat by Pulse 97 99 Oximetry 03/28/17 03/28/17 03/28/17 04:15 04:30 04:45 Temperature Pulse Rate 85 90 89 Respiratory 13 13 13 Rate Blood Pressure 107/47 103/54 101/54 Blood Pressure [Left] O2 Sat by Pulse 100 99 99 Oximetry 03/28/17 03/28/17 03/28/17 05:00 05:15 05:31 Temperature Pulse Rate 90 Respiratory 13 15 14 Rate Blood Pressure 102/56 102/56 171/40 Blood Pressure [Left] O2 Sat by Pulse 98 97 97 Oximetry 03/28/17 03/28/17 03/28/17 05:45 06:01 06:15 Temperature Pulse Rate 88 88 Respiratory 14 14 15 Rate Blood Pressure 127/38 169/35 146/36 Blood Pressure [Left] O2 Sat by Pulse 99 97 98 Oximetry 03/28/17 03/28/17 03/28/17 06:31 06:45 07:00 Temperature Pulse Rate 86 86 Respiratory 16 27 H 14 Rate Blood Pressure 85/45 100/46 94/49 Blood Pressure [Left] O2 Sat by Pulse 96 92 93 Oximetry 03/28/17 03/28/17 03/28/17 07:15 07:30 09:57 Temperature Pulse Rate 85 89 91 H Respiratory 19 19 Rate Blood Pressure 96/50 99/52 108/62 Blood Pressure [Left] O2 Sat by Pulse 94 99 Oximetry 03/28/17 10:34 Temperature Pulse Rate Respiratory 15 Rate Blood Pressure Blood Pressure [Left] O2 Sat by Pulse 99 Oximetry - Reevaluation(s) Reevaluation #1: Patient is meeting criteria for DKA. I ordered ketones. I ordered an insulin drip started received empiric antibiotics. He was admitted by the hospitalist staff for further care and evaluation. 03/28/17 10:47 ALINA score - Alina Score Age > 65: (0) No Aspirin use within the Past 7 Days: (0) No 3 or more CAD Risk Factors: (1) Yes 2 or more Angina events in past 24 hrs: (0) No Known CAD with more than 50% Stenosis: (0) No Elevated Cardiac Markers: (0) No ST Deviation Greater than 0.5mm: (0) No ALINA Score: 1 ED Medical Decision Making - Lab Data Result diagrams: 03/28/17 03:36 03/28/17 09:10 Laboratory Results - last 24 hr 03/28/17 03/28/17 03/28/17 03:36 03:36 03:36 WBC 4.5 RBC 4.30 Hgb 12.8 Hct 38.8 MCV 90 MCH 30 MCHC 33 RDW 13.4 Plt Count 214 Lymph % (Auto) 15.6 [place] % (Auto) 5.2 Eos % (Auto) 0.4 Baso % (Auto) 0.4 Lymph # 0.7 L [place] # 0.2 Eos # 0.0 Baso # 0.0 Seg Neutrophils % 78.4 H Seg Neutrophils # 3.5 PT INR APTT Sodium 136 L Potassium 3.8 Chloride 97.2 L Carbon Dioxide 18 L Anion Gap 25 BUN 12 Creatinine 1.0 Estimated GFR > 60 BUN/Creatinine Ratio 12 Glucose 460 H Lactic Acid 5.70 H* Calcium 8.2 L Magnesium 2.10 Total Bilirubin 0.20 AST 17 ALT 23 Alkaline Phosphatase 69 Troponin T < 0.010 Total Protein 5.9 L Albumin 3.6 L Albumin/Globulin Ratio 1.6 TSH Salicylates Acetaminophen Plasma/Serum Alcohol 03/28/17 03/28/17 03/28/17 03:36 03:36 03:36 WBC RBC Hgb Hct MCV MCH MCHC RDW Plt Count Lymph % (Auto) [place] % (Auto) Eos % (Auto) Baso % (Auto) Lymph # [place] # Eos # Baso # Seg Neutrophils % Seg Neutrophils # PT INR APTT Sodium Potassium Chloride Carbon Dioxide Anion Gap BUN Creatinine Estimated GFR BUN/Creatinine Ratio Glucose Lactic Acid Calcium Magnesium Total Bilirubin AST ALT Alkaline Phosphatase Troponin T Total Protein Albumin Albumin/Globulin Ratio TSH 0.516 Salicylates < 0.3 L Acetaminophen < 15.0 Plasma/Serum Alcohol 03/28/17 03/28/17 03:36 04:00 WBC RBC Hgb Hct MCV MCH MCHC RDW Plt Count Lymph % (Auto) [place] % (Auto) Eos % (Auto) Baso % (Auto) Lymph # [place] # Eos # Baso # Seg Neutrophils % Seg Neutrophils # PT 10.6 L INR 0.73 L APTT 20.0 L Sodium Potassium Chloride Carbon Dioxide Anion Gap BUN Creatinine Estimated GFR BUN/Creatinine Ratio Glucose Lactic Acid Calcium Magnesium Total Bilirubin AST ALT Alkaline Phosphatase Troponin T Total Protein Albumin Albumin/Globulin Ratio TSH Salicylates Acetaminophen Plasma/Serum Alcohol 0.11 H Laboratory Results - last 24 hr 03/28/17 03/28/17 03/28/17 03:36 03:36 03:36 WBC 4.5 RBC 4.30 Hgb 12.8 Hct 38.8 MCV 90 MCH 30 MCHC 33 RDW 13.4 Plt Count 214 Lymph % (Auto) 15.6 [place] % (Auto) 5.2 Eos % (Auto) 0.4 Baso % (Auto) 0.4 Lymph # 0.7 L [place] # 0.2 Eos # 0.0 Baso # 0.0 Seg Neutrophils % 78.4 H Seg Neutrophils # 3.5 PT INR APTT Sodium 136 L Potassium 3.8 Chloride 97.2 L Carbon Dioxide 18 L Anion Gap 25 BUN 12 Creatinine 1.0 Estimated GFR > 60 BUN/Creatinine Ratio 12 Glucose 460 H Ketones Quantitative Lactic Acid 5.70 H* Calcium 8.2 L Phosphorus Magnesium 2.10 Total Bilirubin 0.20 AST 17 ALT 23 Alkaline Phosphatase 69 Troponin T < 0.010 NT-Pro-B Natriuret Pep Total Protein 5.9 L Albumin 3.6 L Albumin/Globulin Ratio 1.6 Amylase Lipase TSH Urine Color Urine Turbidity Urine pH Ur Specific [place] Urine Protein Urine Glucose (UA) Urine Ketones Urine Blood Urine Nitrite Urine Bilirubin Urine Urobilinogen Ur Leukocyte Esterase Urine WBC (Auto) Urine RBC (Auto) Urine Mucus Salicylates Urine Opiates Screen Urine Methadone Screen Acetaminophen Ur Barbiturates Screen Ur Phencyclidine Scrn Ur Amphetamines Screen U Benzodiazepines Scrn Urine Cocaine Screen U Marijuana (THC) Screen Drugs of Abuse Note Plasma/Serum Alcohol 03/28/17 03/28/17 03/28/17 03:36 03:36 03:36 WBC RBC Hgb Hct MCV MCH MCHC RDW Plt Count Lymph % (Auto) [place] % (Auto) Eos % (Auto) Baso % (Auto) Lymph # [place] # Eos # Baso # Seg Neutrophils % Seg Neutrophils # PT INR APTT Sodium Potassium Chloride Carbon Dioxide Anion Gap BUN Creatinine Estimated GFR BUN/Creatinine Ratio Glucose Ketones Quantitative Lactic Acid Calcium Phosphorus Magnesium Total Bilirubin AST ALT Alkaline Phosphatase Troponin T NT-Pro-B Natriuret Pep Total Protein Albumin Albumin/Globulin Ratio Amylase Lipase TSH 0.516 Urine Color Urine Turbidity Urine pH Ur Specific [place] Urine Protein Urine Glucose (UA) Urine Ketones Urine Blood Urine Nitrite Urine Bilirubin Urine Urobilinogen Ur Leukocyte Esterase Urine WBC (Auto) Urine RBC (Auto) Urine Mucus Salicylates < 0.3 L Urine Opiates Screen Urine Methadone Screen Acetaminophen < 15.0 Ur Barbiturates Screen Ur Phencyclidine Scrn Ur Amphetamines Screen U Benzodiazepines Scrn Urine Cocaine Screen U Marijuana (THC) Screen Drugs of Abuse Note Plasma/Serum Alcohol 03/28/17 03/28/17 03/28/17 03:36 04:00 06:50 WBC RBC Hgb Hct MCV MCH MCHC RDW Plt Count Lymph % (Auto) [place] % (Auto) Eos % (Auto) Baso % (Auto) Lymph # [place] # Eos # Baso # Seg Neutrophils % Seg Neutrophils # PT 10.6 L INR 0.73 L APTT 20.0 L Sodium Potassium Chloride Carbon Dioxide Anion Gap BUN Creatinine Estimated GFR BUN/Creatinine Ratio Glucose Ketones Quantitative Lactic Acid Calcium Phosphorus Magnesium Total Bilirubin AST ALT Alkaline Phosphatase Troponin T NT-Pro-B Natriuret Pep Total Protein Albumin Albumin/Globulin Ratio Amylase Lipase TSH Urine Color Straw Urine Turbidity Clear Urine pH 6.0 Ur Specific [place] 1.026 Urine Protein <15 mg/dl Urine Glucose (UA) >=500 Urine Ketones Tr Urine Blood Neg Urine Nitrite Neg Urine Bilirubin Neg Urine Urobilinogen < 2.0 Ur Leukocyte Esterase Neg Urine WBC (Auto) < 1.0 Urine RBC (Auto) < 1.0 Urine Mucus Few Salicylates Urine Opiates Screen Urine Methadone Screen Acetaminophen Ur Barbiturates Screen Ur Phencyclidine Scrn Ur Amphetamines Screen U Benzodiazepines Scrn Urine Cocaine Screen U Marijuana (THC) Screen Drugs of Abuse Note Plasma/Serum Alcohol 0.11 H 03/28/17 03/28/17 03/28/17 06:50 08:34 08:34 WBC RBC Hgb Hct MCV MCH MCHC RDW Plt Count Lymph % (Auto) [place] % (Auto) Eos % (Auto) Baso % (Auto) Lymph # [place] # Eos # Baso # Seg Neutrophils % Seg Neutrophils # PT INR APTT Sodium Potassium Chloride Carbon Dioxide Anion Gap BUN Creatinine Estimated GFR BUN/Creatinine Ratio Glucose Ketones Quantitative Small Lactic Acid 3.50 H* Calcium Phosphorus Magnesium 2.10 Total Bilirubin AST ALT Alkaline Phosphatase Troponin T < 0.010 NT-Pro-B Natriuret Pep 17.91 Total Protein Albumin Albumin/Globulin Ratio Amylase Lipase TSH Urine Color Urine Turbidity Urine pH Ur Specific [place] Urine Protein Urine Glucose (UA) Urine Ketones Urine Blood Urine Nitrite Urine Bilirubin Urine Urobilinogen Ur Leukocyte Esterase Urine WBC (Auto) Urine RBC (Auto) Urine Mucus Salicylates Urine Opiates Screen Presumptive negative Urine Methadone Screen Presumptive negative Acetaminophen Ur Barbiturates Screen Presumptive negative Ur Phencyclidine Scrn Presumptive negative Ur Amphetamines Screen Presumptive negative U Benzodiazepines Scrn Presumptive negative Urine Cocaine Screen Presumptive negative U Marijuana (THC) Screen Presumptive positive Drugs of Abuse Note Disclamer Plasma/Serum Alcohol 03/28/17 03/28/17 03/28/17 08:34 08:34 08:34 WBC RBC Hgb Hct MCV MCH MCHC RDW Plt Count Lymph % (Auto) [place] % (Auto) Eos % (Auto) Baso % (Auto) Lymph # [place] # Eos # Baso # Seg Neutrophils % Seg Neutrophils # PT INR APTT Sodium 138 Potassium 4.0 Chloride 100.8 Carbon Dioxide 21 L Anion Gap 20 BUN 12 Creatinine 0.9 Estimated GFR > 60 BUN/Creatinine Ratio 13 Glucose 355 H Ketones Quantitative Lactic Acid Calcium 8.3 L Phosphorus 2.90 Magnesium 2.10 Total Bilirubin AST ALT Alkaline Phosphatase Troponin T NT-Pro-B Natriuret Pep Total Protein Albumin Albumin/Globulin Ratio Amylase 52 Lipase 22 TSH Urine Color Urine Turbidity Urine pH Ur Specific [place] Urine Protein Urine Glucose (UA) Urine Ketones Urine Blood Urine Nitrite Urine Bilirubin Urine Urobilinogen Ur Leukocyte Esterase Urine WBC (Auto) Urine RBC (Auto) Urine Mucus Salicylates Urine Opiates Screen Urine Methadone Screen Acetaminophen Ur Barbiturates Screen Ur Phencyclidine Scrn Ur Amphetamines Screen U Benzodiazepines Scrn Urine Cocaine Screen U Marijuana (THC) Screen Drugs of Abuse Note Plasma/Serum Alcohol 03/28/17 03/28/17 09:10 09:10 WBC RBC Hgb Hct MCV MCH MCHC RDW Plt Count Lymph % (Auto) [place] % (Auto) Eos % (Auto) Baso % (Auto) Lymph # [place] # Eos # Baso # Seg Neutrophils % Seg Neutrophils # PT INR APTT Sodium 138 Potassium 4.0 Chloride 100.3 Carbon Dioxide 21 L Anion Gap 21 BUN 13 Creatinine 0.9 Estimated GFR > 60 BUN/Creatinine Ratio 14 Glucose 352 H Ketones Quantitative Lactic Acid Calcium 8.3 L Phosphorus Magnesium Total Bilirubin AST ALT Alkaline Phosphatase Troponin T < 0.010 NT-Pro-B Natriuret Pep Total Protein Albumin Albumin/Globulin Ratio Amylase Lipase TSH Urine Color Urine Turbidity Urine pH Ur Specific [place] Urine Protein Urine Glucose (UA) Urine Ketones Urine Blood Urine Nitrite Urine Bilirubin Urine Urobilinogen Ur Leukocyte Esterase Urine WBC (Auto) Urine RBC (Auto) Urine Mucus Salicylates Urine Opiates Screen Urine Methadone Screen Acetaminophen Ur Barbiturates Screen Ur Phencyclidine Scrn Ur Amphetamines Screen U Benzodiazepines Scrn Urine Cocaine Screen U Marijuana (THC) Screen Drugs of Abuse Note Plasma/Serum Alcohol - EKG Data -: EKG Interpreted by Ca EKG shows normal: sinus rhythm, axis, intervals, QRS complexes, ST-T waves Rate: normal - EKG Data Interpretation: normal EKG - Radiology Data Radiology results: report reviewed Critical care attestation.: If time is entered above; I have spent that time in minutes in the direct care of this critically ill patient, excluding procedure time. ED Disposition Clinical Impression: Alcohol abuse DKA (diabetic ketoacidoses) Qualifiers: Diabetes mellitus type: type 1 Diabetes mellitus complication detail: without coma Qualified Code(s): E10.10 - Type 1 diabetes mellitus with ketoacidosis without coma Chest pain Qualifiers: Chest pain type: unspecified Qualified Code(s): R07.9 - Chest pain, unspecified Disposition: DC-09 OP ADMIT IP TO THIS HOSP Is pt being admited?: Yes Does the pt Need Aspirin: Yes Condition: Stable Instructions: Diabetic Ketoacidosis (ED), Chest Pain (ED) Referrals: CHRISTINA GENTILE MD [Primary Care Provider] - 3-5 Days Time of Disposition: 10:49
[2017-03-28] MEDS ORDERED: NACL 0.9% 1000 ML 1,000 ML IV ONE ×2 (06:24→06:48)
[2017-03-28] MEDS ORDERED: ZOSYN/NS 4.5GM/100ML 4.5 GM/100 ML VIAL IV ONE (06:25)
[2017-03-28] MEDS ORDERED: D50W (25GM) Syringe IV PRN (06:48)
[2017-03-28 06:53] LABS: Urine Drugs of Abuse Note Disclamer
[2017-03-28 07:00] LABS: Bilirubin,Urine NEG (Negative); Blood,Urine NEG (Negative); Ketones,Urine TR mg/dL (Negative); Leukocyte Esterase,Urine NEG (Negative); Mucus,Urine FEW /HPF; Nitrite,Urine NEG (Negative); Protein,Urine <15 mg/dL mg/dL (Negative); RBC,Urine < 1.0 /HPF (0.0-6.0); Urobilinogen,Urine < 2.0 mg/dL (<2.0); WBC,Urine < 1.0 /HPF (0.0-6.0)
[2017-03-28] MEDS ORDERED: VANCOMYCIN 1,500 MG in NACL 0.9% 500 ML 500 ML IV ONE (07:00)
[2017-03-28] MEDS ORDERED: NovoLIN R 100 UNITS in NACL 0.9% 99 ML IV SCH (07:00)
[2017-03-28] MEDS ORDERED: VANCOMYCIN PHARMACY TO DOSE IV SCH ×2 (07:00→17:00)
--- NOTE | 2017-03-28 07:01 | XRay Report ---
FINAL REPORT PROCEDURE: XR CHEST 1V AP TECHNIQUE: Chest radiograph anteroposterior view. CPT 29875 HISTORY: CXR for hypertension evaluation COMPARISON: No prior studies are available for comparison. FINDINGS: Heart: Normal. Mediastinum/Vessels: Normal. Lungs/Pleural space: Lungs are clear. There are no infiltrates, effusions or pneumothoraces. Bony thorax: No acute osseous abnormality. Life support devices: Pacemaker leads are in proper position.. IMPRESSION: No acute cardiopulmonary abnormality.
--- NOTE | 2017-03-28 07:52 | History and Physical Report ---
History of Present Illness Date of examination: 03/28/17 Date of admission: 03/28/17 Chief complaint: chest pain History of present illness: Patient is 51 yo with diabetes mellitus type 2, non ischemic cardiomyopathy. He presented with chest pain. Chest pain was like a pressure, 8/10, Pain worse on drinking alcohol, not worse on exertion. In Emergency Department, found to have diabetic ketoacidosis with serum glucose 460, CO2 of 18 and anion gap of 25. Also he has elevated alcohol level as he was drinking recently. He has been started on Insulin drip and will be admitted to ICU. Past History Past Medical History: diabetes, heart failure, other (NICM, diabetic neuropathy) Past Surgical History: hernia repair, Other (permanent pacemaker placement) Social history: smoking, alcohol abuse, full code Family history: hypertension Medications and Allergies Allergies Allergy/AdvReac Type Severity Reaction Status Date / Time No Known Allergies Allergy Verified 11/29/14 22:56 Home Medications Medication Instructions Recorded Confirmed Last Taken Type Aspirin [Aspirin BABY CHEW TAB] 81 mg PO QDAY #30 tab.chew 10/31/16 Unknown Rx AtorvaSTATin [Lipitor] 40 mg PO QHS #30 tablet 10/31/16 Unknown Rx Carvedilol [Coreg] 3.125 mg PO BID #60 tablet 10/31/16 Unknown Rx Gabapentin [Neurontin] 300 mg PO Q8HR #90 capsule 11/01/16 Unknown Rx Insulin Aspart Prot/Aspart(Nf) 10 units SQ BID 30 Days vial 11/01/16 Unknown Rx [Novolog Mix 70/30] metFORMIN [Glucophage] 1,000 mg PO BIDDIAB #60 tablet 11/01/16 Unknown Rx traMADol [Ultram 50 MG tab] 50 mg PO Q6HR PRN #15 tablet 02/17/17 Unknown Rx Active Meds: Active Medications Dextrose (D50w (25gm) Syringe) 0 ml IV ONCE PRN PRN Reason: Hypoglycemia Vancomycin HCl 1,500 mg/ (Sodium Chloride) 515 mls @ 333.333 mls/hr IV ONCE.ED ONE Stop: 03/28/17 08:32 Insulin Human Regular 100 (units/ Sodium Chloride) 100 mls @ 1 mls/hr IV TITR ROSALINDA; 1 UNITS/HR PRN Reason: Protocol Last Admin: 03/28/17 07:32 Dose: 8 units/hr, 8 mls/hr Vancomycin HCl 1,250 mg/ (Sodium Chloride) 262.5 mls @ 166.667 mls/hr IV Q12HR [facility] Vancomycin HCl (Vancomycin Pharmacy To Dose) 1 each IV PKCONSULT ROSALINDA PRN Reason: Protocol Review of Systems All systems: negative (No fever, no cough, no abdominal pain. All other systems reviewed and are negative) Exam - Physical Exam Narrative exam: GEN APPEARANCE : Not in acute distress, lying in bed HEENT: Normocephalic, Atraumatic NECK : supple, no JVD LUNGS: Clear to auscultation bilaterally, no rales, no wheeze HEART: S1 and S2 regular, no murmurs, rubs or gallop,device left chest wall ABD: Soft, non tender, non distended, normal bowel sounds EXT: No edema, no clubbing, no cyanosis, no cyanosis NEURO: Awake,alert, oriented x 3, no focal signs - Constitutional Vitals: Temp Pulse Resp BP Pulse Ox 98.1 F 89 19 99/52 99 03/28/17 03:23 03/28/17 07:30 03/28/17 07:30 03/28/17 07:30 03/28/17 07:30 Results - Labs CBC & Chem 7: 03/28/17 03:36 03/28/17 15:24 Labs: Abnormal lab results 03/28/17 03/28/17 03/28/17 Range/Units 03:36 03:36 03:36 Lymph # 0.7 L (1.2-5.4) K/mm3 Seg Neutrophils % 78.4 H (40.0-70.0) % PT (12.2-14.9) Sec. INR (0.87-1.13) APTT (24.2-36.6) Sec. Sodium 136 L (137-145) mmol/L Chloride 97.2 L (98-107) mmol/L Carbon Dioxide 18 L (22-30) mmol/L Glucose 460 H (75-100) mg/dL Lactic Acid 5.70 H* (0.7-2.0) mmol/L Calcium 8.2 L (8.4-10.2) mg/dL Total Protein 5.9 L (6.3-8.2) g/dL Albumin 3.6 L (3.9-5) g/dL Salicylates (2.8-20.0) mg/dL Plasma/Serum Alcohol (0-0.07) gm% 03/28/17 03/28/17 03/28/17 Range/Units 03:36 03:36 04:00 Lymph # (1.2-5.4) K/mm3 Seg Neutrophils % (40.0-70.0) % PT 10.6 L (12.2-14.9) Sec. INR 0.73 L (0.87-1.13) APTT 20.0 L (24.2-36.6) Sec. Sodium (137-145) mmol/L Chloride (98-107) mmol/L Carbon Dioxide (22-30) mmol/L Glucose (75-100) mg/dL Lactic Acid (0.7-2.0) mmol/L Calcium (8.4-10.2) mg/dL Total Protein (6.3-8.2) g/dL Albumin (3.9-5) g/dL Salicylates < 0.3 L (2.8-20.0) mg/dL Plasma/Serum Alcohol 0.11 H (0-0.07) gm% Assessment and Plan Diabetic ketoacidosis. Admit to ICU. Started on Insulin drip. Check fingerstick Q 1hr. Started on Normal saline Chest pain. Check serial Troponins. May do stress test in am. Aspirin daily Diabetic neuropathy. Resume Gabapentin Alcohol intoxication. Supportive care. Watch for withdrawal lactic acidosis. to r/o sepsis. No signs of sepsis currently. Blood culture, started on empiric Abx. May d/c Zosyn and vanco in 2 days if cultures negative. Chronic systolic CHF. Stable Non ischemic cardiomyopathy s/p pacemaker DVT prophylaxis with Heparin
[2017-03-28] MEDS ORDERED: ALUM-MAG HYDROX-SIMETH 200-200-20MG/5ML PO PRN (07:57)
[2017-03-28] MEDS ORDERED: DULCOLAX PR PRN (07:57)
[2017-03-28] MEDS ORDERED: ZOFRAN IV PRN (07:57)
[2017-03-28] MEDS ORDERED: MILK OF MAGNESIA PO PRN (07:57)
[2017-03-28] MEDS ORDERED: NACL 0.9% 1000 ML 1,000 ML IV SCH ×2 (08:00→18:00)
[2017-03-28] MEDS ORDERED: BABY ASPIRIN PO STA (08:12)
[2017-03-28 09:02] LABS: Anion Gap 20 mmol/L; BUN/Creatinine Ratio 13; Blood Urea Nitrogen 12 mg/dL (9-20); Calcium 8.3 mg/dL (8.4-10.2); Carbon Dioxide 21 mmol/L (22-30); Chloride 100.8 mmol/L (98-107); Glucose 355 mg/dL (75-100); Sodium 138 mmol/L (137-145)
[2017-03-28 09:17] LABS: Magnesium 2.1 mg/dL (1.7-2.3); Phosphorous 2.9 mg/dL (2.5-4.5)
[2017-03-28 09:18] LABS: Amylase 52 units/L (27-131); Lipase 22 units/L (13-60)
[2017-03-28 09:33] LABS: BUN/Creatinine Ratio 14; Blood Urea Nitrogen 13 mg/dL (9-20); Calcium 8.3 mg/dL (8.4-10.2); Carbon Dioxide 21 mmol/L (22-30); Glucose 352 mg/dL (75-100)
[2017-03-28 09:34] LABS: Anion Gap 21 mmol/L; Chloride 100.3 mmol/L (98-107); Sodium 138 mmol/L (137-145)
[2017-03-28 09:34] LABS: Ketones Small (Negative)
[2017-03-28] MEDS: COREG PO SCH ×2 (09:57→21:05)
[2017-03-28] MEDS: PEPCID IV SCH ×3 (09:57→21:01)
[2017-03-28] MEDS: NEURONTIN PO SCH ×3 (09:57→21:01)
[2017-03-28] MEDS ORDERED: BABY ASPIRIN PO SCH (10:00)
[2017-03-28] MEDS ORDERED: D5/0.45NS 1,000 ML IV ONE (11:27)
[2017-03-28 11:51] LABS: Anion Gap 17 mmol/L; BUN/Creatinine Ratio 17; Blood Urea Nitrogen 12 mg/dL (9-20); Calcium 7.9 mg/dL (8.4-10.2); Carbon Dioxide 21 mmol/L (22-30); Chloride 105.4 mmol/L (98-107); Glucose 121 mg/dL (75-100); Potassium 3.6 mmol/L (3.6-5.0); Sodium 140 mmol/L (137-145)
[2017-03-28] MEDS ORDERED: D5/0.45NS 1,000 ML IV SCH (12:00)
[2017-03-28] MEDS: MORPHINE IV PRN ×2 (15:17→21:01)
--- NOTE | 2017-03-28 15:32 | Consultation ---
History of Present Illness Consult date: 03/28/17 Reason for consult: dyspnea (DKA) Past History Past Medical History: diabetes, heart failure, other (NICM, diabetic peripheral neuropathy) Past Surgical History: Other (permanent pacemaker) Social history: smoking, alcohol abuse, full code Family history: hypertension Medications and Allergies Allergies Allergy/AdvReac Type Severity Reaction Status Date / Time No Known Allergies Allergy Verified 11/29/14 22:56 Home Medications Medication Instructions Recorded Confirmed Last Taken Type Aspirin [Aspirin BABY CHEW TAB] 81 mg PO QDAY #30 tab.chew 10/31/16 Unknown Rx AtorvaSTATin [Lipitor] 40 mg PO QHS #30 tablet 10/31/16 Unknown Rx Carvedilol [Coreg] 3.125 mg PO BID #60 tablet 10/31/16 Unknown Rx Gabapentin [Neurontin] 300 mg PO Q8HR #90 capsule 11/01/16 Unknown Rx Insulin Aspart Prot/Aspart(Nf) 10 units SQ BID 30 Days vial 11/01/16 Unknown Rx [Novolog Mix 70/30] metFORMIN [Glucophage] 1,000 mg PO BIDDIAB #60 tablet 11/01/16 Unknown Rx traMADol [Ultram 50 MG tab] 50 mg PO Q6HR PRN #15 tablet 02/17/17 Unknown Rx Active Meds: Active Medications Al Hydrox/Mg Hydrox/Simethicone (Alum-Mag Hydrox-Simeth [id number]/5ml) 30 ml PO Q4H PRN PRN Reason: Indigestion Aspirin (Ecotrin) 325 mg PO QDAY ROSALINDA Atorvastatin Calcium (Lipitor) 40 mg PO QHS ROSALINDA Bisacodyl (Dulcolax) 10 mg [place] QDAY PRN PRN Reason: constipation unrelieved by MOM Carvedilol (Coreg) 3.125 mg PO BID [facility] Last Admin: 03/28/17 09:57 Dose: 3.125 mg Dextrose (D50w (25gm) Syringe) 0 ml IV ONCE PRN PRN Reason: Hypoglycemia Famotidine (Pepcid) 20 mg IV BID [facility] Last Admin: 03/28/17 10:18 Dose: 20 mg Gabapentin (Neurontin) 300 mg PO Q8HR [facility] Last Admin: 03/28/17 14:02 Dose: 300 mg Insulin Human Regular 100 (units/ Sodium Chloride) 100 mls @ 1 mls/hr IV TITR ROSALINDA; 1 UNITS/HR PRN Reason: Protocol Last Titration: 03/28/17 14:09 Dose: 3 units/hr, 3 mls/hr Vancomycin HCl 1,250 mg/ (Sodium Chloride) 262.5 mls @ 166.667 mls/hr IV Q12HR ROSALINDA Dextrose/Sodium Chloride (D5/0.45ns) 1,000 mls @ 150 mls/hr IV DIRECT ROSALINDA Magnesium Hydroxide (Milk Of Magnesia) 30 ml PO Q4H PRN PRN Reason: Constipation Morphine Sulfate (Morphine) 2 mg IV Q4H PRN PRN Reason: Pain, Moderate (4-6) Last Admin: 03/28/17 15:17 Dose: 2 mg Ondansetron HCl (Zofran) 4 mg IV Q8H PRN PRN Reason: nausea or vomiting Last Admin: 03/28/17 15:17 Dose: 4 mg Vancomycin HCl (Vancomycin Pharmacy To Dose) 1 each IV PKCONSULT ROSALINDA PRN Reason: Protocol Review of Systems Constitutional: fever, sweats, fatigue, weakness, malaise, chronic pain Ears, nose, mouth and throat: deferred Cardiovascular: chest pain Respiratory: shortness of breath, dyspnea on exertion Gastrointestinal: abdominal pain Musculoskeletal: other (generalized aches and pains) Neurological: parathesias (over extremities), numbness, tingling, burning pain Physical Examination Vital signs: Vital Signs Pulse Ox 89 03/28/17 03:06 General appearance: other Eyes: non-icteric ENT: oropharynx dry Neck: supple, no lymphadenopathy, no JVD Ascultation: Bilateral: clear Cardiovascular: regular rate and rhythm Gastrointestinal: normoactive bowel sounds, tender (mildly generalized tenderness), non-distended (no) Integumentary: normal Extremities: no cyanosis, edema (1+ tenderness noted lower extremities) Results - Laboratory Findings CBC and BMP: 03/28/17 03:36 03/28/17 11:18 PT/INR, D-dimer PT 10.6 Sec. (12.2-14.9) L 03/28/17 04:00 INR 0.73 (0.87-1.13) L 03/28/17 04:00 Abnormal lab findings: Abnormal Labs 03/28/17 03/28/17 03/28/17 03:36 03:36 03:36 Lymph # 0.7 L Seg Neutrophils % 78.4 H PT INR APTT Sodium 136 L Chloride 97.2 L Carbon Dioxide 18 L Creatinine Glucose 460 H POC Glucose Hemoglobin A1c Lactic Acid 5.70 H* Calcium 8.2 L Total Protein 5.9 L Albumin 3.6 L Salicylates Plasma/Serum Alcohol 03/28/17 03/28/17 03/28/17 03:36 03:36 04:00 Lymph # Seg Neutrophils % PT 10.6 L INR 0.73 L APTT 20.0 L Sodium Chloride Carbon Dioxide Creatinine Glucose POC Glucose Hemoglobin A1c Lactic Acid Calcium Total Protein Albumin Salicylates < 0.3 L Plasma/Serum Alcohol 0.11 H 03/28/17 03/28/17 03/28/17 08:34 08:34 08:43 Lymph # Seg Neutrophils % PT INR APTT Sodium Chloride Carbon Dioxide 21 L Creatinine Glucose 355 H POC Glucose 345 H Hemoglobin A1c Lactic Acid 3.50 H* Calcium 8.3 L Total Protein Albumin Salicylates Plasma/Serum Alcohol 03/28/17 03/28/17 03/28/17 09:10 09:21 09:49 Lymph # Seg Neutrophils % PT INR APTT Sodium Chloride Carbon Dioxide 21 L Creatinine Glucose 352 H POC Glucose 319 H 296 H Hemoglobin A1c Lactic Acid Calcium 8.3 L Total Protein Albumin Salicylates Plasma/Serum Alcohol 03/28/17 03/28/17 03/28/17 11:12 11:18 11:18 Lymph # Seg Neutrophils % PT INR APTT Sodium Chloride Carbon Dioxide 21 L Creatinine 0.7 L Glucose 121 H POC Glucose 132 H Hemoglobin A1c 15.0 H Lactic Acid Calcium 7.9 L Total Protein Albumin Salicylates Plasma/Serum Alcohol 03/28/17 03/28/17 03/28/17 12:10 13:25 14:10 Lymph # Seg Neutrophils % PT INR APTT Sodium Chloride Carbon Dioxide Creatinine Glucose POC Glucose 128 H 148 H 180 H Hemoglobin A1c Lactic Acid Calcium Total Protein Albumin Salicylates Plasma/Serum Alcohol - Diagnostic Findings Chest x-ray: report reviewed (unremarkable) Assessment and Plan Impression: Diabetic ketoacidosis Acute on chronic alcoholic intoxication History of tobacco abuse Peripheral neuropathy probably diabetic Rule out viral syndrome 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 Total critical care time 35 minutes
[2017-03-28 15:58] LABS: Anion Gap 17 mmol/L; BUN/Creatinine Ratio 18; Blood Urea Nitrogen 11 mg/dL (9-20); Carbon Dioxide 22 mmol/L (22-30); Glucose 142 mg/dL (75-100); Potassium 3.7 mmol/L (3.6-5.0); Sodium 140 mmol/L (137-145)
[2017-03-28] MEDS: ZOSYN/NS 4.5GM/100ML 4.5 GM/100 ML VIAL IV SCH (19:27)
[2017-03-28] MEDS: VANCOMYCIN 1,250 MG in NACL 0.9% 250ML 250 ML IV SCH (21:00)
[2017-03-28] MEDS: DESYREL PO SCH (23:15)
[2017-03-29] MEDS: ZOSYN/NS 4.5GM/100ML 4.5 GM/100 ML VIAL IV SCH ×5 (00:19→23:28)
[2017-03-29] MEDS ORDERED: ATIVAN IV PRN ×2 (03:27)
[2017-03-29] MEDS: NEURONTIN PO SCH ×4 (05:23→21:21)
[2017-03-29] MEDS: MORPHINE IV PRN ×3 (08:05→21:18)
[2017-03-29 08:25] LABS: Anion Gap 17 mmol/L; BUN/Creatinine Ratio 10; Blood Urea Nitrogen 8 mg/dL (9-20); Calcium 8.3 mg/dL (8.4-10.2); Carbon Dioxide 23 mmol/L (22-30); Glucose 238 mg/dL (75-100); Potassium 3.6 mmol/L (3.6-5.0); Sodium 140 mmol/L (137-145)
[2017-03-29] MEDS ORDERED: LEXISCAN IV ONE ×2 (09:17→09:38)
[2017-03-29] MEDS ORDERED: PNEUMOVAX 23 IM ONE (12:00)
--- NOTE | 2017-03-29 12:02 | Progress Note ---
Assessment and Plan Assessment and Plan Diabetic ketoacidosis. Resolved. patient is off insulin drip Labs reviewed CO2 is 23 Monitor blood sugars AC and at bedtime A1c is 15 Chest pain. Troponin is less than 0.1 Aspirin daily Diabetic neuropathy. Resume Gabapentin Alcohol intoxication. Supportive care. Watch for withdrawal lactic acidosis. to r/o sepsis. No signs of sepsis currently. Blood culture results pending. started on empiric Abx. May d/c Zosyn and vanco in 2 days if cultures negative. Chronic systolic CHF. Stable. Stop intravenous fluids with a history of nonischemic cardiomyopathy Non ischemic cardiomyopathy s/p pacemaker DVT prophylaxis with Heparin Subjective Date of service: 03/29/17 Interval history: Patient is awake and alert. Complains of pain in both legs which apparently is chronic He says morphine is not helping Denies nausea or vomiting or abdominal pain Denies chest pain Objective - Constitutional Vitals: Vital Signs - 12hr 03/29/17 03/29/17 03/29/17 00:37 04:37 08:09 Temperature 97.4 F L 97.8 F Pulse Rate 67 67 62 Respiratory 20 20 Rate Blood Pressure 95/51 110/71 116/75 O2 Sat by Pulse 95 98 96 Oximetry 03/29/17 08:37 Temperature Pulse Rate 85 Respiratory Rate Blood Pressure O2 Sat by Pulse Oximetry General appearance: Present: no acute distress - EENT Eyes: PERRL, EOM intact ENT: hearing intact, clear oral mucosa - Neck Neck: supple, normal ROM, no masses or JVD - Respiratory Respiratory: bilateral: CTA - Cardiovascular Rhythm: regular Heart Sounds: Present: S1 & S2 Extremities: No edema - Gastrointestinal General gastrointestinal: Present: soft, non-tender. Absent: hepatomegaly, splenomegaly Rectal Exam: deferred - Integumentary Integumentary: clear (skin is very sensitive to touch on the legs chest and abdomen but nontender), warm, dry - Musculoskeletal Musculoskeletal: strength equal bilaterally - Neurologic Neurologic: CNII-XII intact - Psychiatric Psychiatric: appropriate mood/affect - Labs CBC & Chem 7: 03/28/17 03:36 03/29/17 07:32 Labs: Abnormal lab results 03/28/17 03/28/17 03/28/17 Range/Units 08:43 09:21 09:49 BUN (9-20) mg/dL Creatinine (0.8-1.5) mg/dL Glucose (75-100) mg/dL POC Glucose 345 H 319 H 296 H (70-105) Hemoglobin A1c (4-6) % Calcium (8.4-10.2) mg/dL 03/28/17 03/28/17 03/28/17 Range/Units 11:12 11:18 12:10 BUN (9-20) mg/dL Creatinine (0.8-1.5) mg/dL Glucose (75-100) mg/dL POC Glucose 132 H 128 H (70-105) Hemoglobin A1c 15.0 H (4-6) % Calcium (8.4-10.2) mg/dL 03/28/17 03/28/17 03/28/17 Range/Units 13:25 14:10 15:24 BUN (9-20) mg/dL Creatinine 0.6 L (0.8-1.5) mg/dL Glucose 142 H (75-100) mg/dL POC Glucose 148 H 180 H (70-105) Hemoglobin A1c (4-6) % Calcium 8.0 L (8.4-10.2) mg/dL 03/28/17 03/28/17 03/29/17 Range/Units 15:48 19:38 07:32 BUN 8 L (9-20) mg/dL Creatinine (0.8-1.5) mg/dL Glucose 238 H (75-100) mg/dL POC Glucose 122 H 141 H (70-105) Hemoglobin A1c (4-6) % Calcium 8.3 L (8.4-10.2) mg/dL
[2017-03-29] MEDS: VANCOMYCIN 1,250 MG in NACL 0.9% 250ML 250 ML IV SCH ×2 (12:51→21:08)
[2017-03-29] MEDS: ECOTRIN PO SCH (12:51)
[2017-03-29] MEDS: ULTRAM PO SCH ×2 (12:51→21:20)
[2017-03-29] MEDS: COREG PO SCH ×2 (12:51→21:22)
[2017-03-29] MEDS: PEPCID IV SCH ×2 (12:52→21:16)
[2017-03-29] MEDS ORDERED: NEURONTIN PO SCH (14:00)
[2017-03-29] MEDS: HEPARIN SUB-Q SCH ×2 (14:40→21:24)
[2017-03-29] MEDS: DESYREL PO SCH (21:21)
--- NOTE | 2017-03-29 21:55 | Treadmill Report ---
NUCLEAR PERFUSION STUDY READING PHYSICIAN: Larry Duff MD IMAGING PROTOCOL: The patient received 10 mCi of Technetium 99m Tetrofosmin for resting image and 28 mCi of Technetium 99m Tetrofosmin for stress imaging. The imaging for the whole procedure was completed 30-90 minutes following the initial injection of Technetium 99m tetrofosmin. The SPECT imaging in the 180 degree arc was performed in the right anterior oblique projection. Computerized reconstruction of the images was performed for analysis. IMAGING RESULTS: Normal cavity size from stress to rest. Normal distribution of radionuclide in the anterior, inferior, septal, and apical regions. Gated SPECT EF 56% with no wall motion abnormality. The patient infused Lexiscan with no EKG changes. SUMMARY: 1. Negative Lexiscan EKG. 2. Normal rest and stress myocardial perfusion scan. No significant stress ischemia. No wall motion abnormality. Gated SPECT EF 56%. JOB# [id number] JASBIR/YOLANDA
[2017-03-30] MEDS: MORPHINE IV PRN ×2 (02:50→08:27)
[2017-03-30] MEDS: ATIVAN IV PRN ×2 (02:51→21:31)
[2017-03-30] MEDS: NEURONTIN PO SCH ×3 (06:39→21:28)
[2017-03-30] MEDS: ULTRAM PO SCH (06:39)
[2017-03-30] MEDS: ZOSYN/NS 4.5GM/100ML 4.5 GM/100 ML VIAL IV SCH ×2 (06:40→12:43)
[2017-03-30] MEDS: HEPARIN SUB-Q SCH ×3 (06:41→21:33)
[2017-03-30] MEDS: ECOTRIN PO SCH (10:49)
[2017-03-30] MEDS: COREG PO SCH ×2 (10:49→21:29)
[2017-03-30] MEDS: PEPCID IV SCH ×2 (10:50→21:29)
--- NOTE | 2017-03-30 11:10 | Progress Note ---
Assessment and Plan Assessment and plan: Diabetic ketoacidosis. Resolved. Labs reviewed CO2 is 23 Monitor blood sugars AC and at bedtime A1c is 15 during this admission Chest pain. Troponin is less than 0.1 Aspirin daily Diabetic neuropathy. Continue Gabapentin Stop tramadol and started on Percocet as patient complains of severe pain in the legs chest and abdomen all of which are moderately sensitive and tender to touch. Discussed with patient about the switch in pain medication. Stop morphine Alcohol intoxication. Supportive care. Watch for withdrawal lactic acidosis. to r/o sepsis. No signs of sepsis currently. Blood culture showed no growth to date. Stop antibiotics and observe Chronic systolic CHF. Stable. Stop intravenous fluids with a history of nonischemic cardiomyopathy Non ischemic cardiomyopathy s/p pacemaker DVT prophylaxis with Heparin Subjective Date of service: 03/30/17 Interval history: Patient is awake and alert. Complains of pain in both legs which apparently is chronic He says morphine and tramadol is not helping Denies nausea or vomiting or abdominal pain c/o chest pain Describes it as sharp and lasts 1-2 seconds and it's nonexertional Denies shortness of breath palpitations dizziness or sweating Objective - Constitutional Vitals: Vital Signs - 12hr 03/30/17 03/30/17 03/30/17 00:39 03:52 07:24 Temperature 98.2 F 97.5 F L 97.4 F L Pulse Rate 69 63 Respiratory 18 19 18 Rate Blood Pressure 128/77 115/79 139/86 O2 Sat by Pulse 96 95 Oximetry 03/30/17 10:49 Temperature Pulse Rate Respiratory Rate Blood Pressure 139/86 O2 Sat by Pulse Oximetry General appearance: Present: no acute distress - EENT Eyes: PERRL, EOM intact ENT: hearing intact, clear oral mucosa, no thrush - Neck Neck: supple, normal ROM, no masses or JVD - Respiratory Respiratory effort: normal Respiratory: bilateral: CTA - Cardiovascular Rhythm: regular Heart Sounds: Present: S1 & S2 Extremities: No edema - Gastrointestinal General gastrointestinal: Present: soft. Absent: hepatomegaly, splenomegaly Rectal Exam: deferred - Integumentary Integumentary: clear, warm (very sensitive and tender to touch over the chest wall abdomen and legs) - Musculoskeletal Musculoskeletal: strength equal bilaterally - Neurologic Neurologic: no focal deficits - Psychiatric Psychiatric: appropriate mood/affect - Labs CBC & Chem 7: 03/28/17 03:36 03/29/17 07:32 Labs: Abnormal lab results 03/29/17 03/29/17 Range/Units 12:39 17:24 POC Glucose 351 H 205 H (70-105)
[2017-03-30] MEDS: VANCOMYCIN 1,250 MG in NACL 0.9% 250ML 250 ML IV SCH (12:42)
[2017-03-30] MEDS: PERCOCET 5/325 PO PRN ×3 (13:19→21:27)
[2017-03-30 14:40] LABS: Anion Gap 17 mmol/L; BUN/Creatinine Ratio 8; Blood Urea Nitrogen 6 mg/dL (9-20); Calcium 8.4 mg/dL (8.4-10.2); Carbon Dioxide 25 mmol/L (22-30); Chloride 98.5 mmol/L (98-107); Glucose 270 mg/dL (75-100); Potassium 3.8 mmol/L (3.6-5.0); Sodium 137 mmol/L (137-145)
[2017-03-30] MEDS: NOVOLOG SUB-Q SCH ×2 (17:24→21:46)
[2017-03-30] MEDS: GLUCOPHAGE PO SCH (17:25)
[2017-03-30] MEDS: DESYREL PO SCH (21:29)
[2017-03-31] MEDS: PERCOCET 5/325 PO PRN ×4 (02:54→21:15)
[2017-03-31] MEDS: NEURONTIN PO SCH ×3 (05:53→21:14)
[2017-03-31] MEDS: HEPARIN SUB-Q SCH ×3 (05:54→21:16)
[2017-03-31] MEDS: COREG PO SCH ×2 (09:48→21:16)
[2017-03-31] MEDS: GLUCOPHAGE PO SCH ×2 (09:48→17:16)
[2017-03-31] MEDS: ECOTRIN PO SCH (09:48)
[2017-03-31] MEDS: NOVOLOG SUB-Q SCH ×4 (09:49→22:20)
[2017-03-31] MEDS: PEPCID IV SCH (09:49)
[2017-03-31] MEDS: PEPCID PO SCH ×2 (10:09→21:14)
--- NOTE | 2017-03-31 11:56 | Event Note ---
Date: 03/31/17 Patient out of ICU. DKA resolved. No active pulmonary issues so will sign off. Please re-consult if needed.
[2017-03-31 16:06] LABS: Hematocrit 45.6 % (35.5-45.6); Hemoglobin 14.9 gm/dl (11.8-15.2); Mean Corpuscular HGB Conc 33 % (32-34); Mean Corpuscular Hemoglobin 29 pg (28-32); Mean Corpuscular Volume 89 fl (84-94); Platelet Count 276 K/mm3 (140-440); Red Blood Count 5.12 M/mm3 (3.65-5.03); Red Cell Distribution Width 13.5 % (13.2-15.2); White Blood Count 7.5 K/mm3 (4.5-11.0)
[2017-03-31 16:23] LABS: Anion Gap 19 mmol/L; BUN/Creatinine Ratio 6; Blood Urea Nitrogen 6 mg/dL (9-20); Calcium 8.7 mg/dL (8.4-10.2); Carbon Dioxide 27 mmol/L (22-30); Chloride 100.7 mmol/L (98-107); Glucose 65 mg/dL (75-100); Potassium 3.8 mmol/L (3.6-5.0); Sodium 143 mmol/L (137-145)
--- NOTE | 2017-03-31 18:55 | Progress Note ---
Assessment and Plan - Diabetic ketoacidosis. Resolved. Labs reviewed CO2 is 23 Monitor blood sugars AC and at bedtime A1c is 15% - Diabetic neuropathy. Continue Gabapentin Stop tramadol and started on Percocet as patient complains of severe pain in the legs chest and abdomen all of which are moderately sensitive and tender to touch. Discussed with patient about the switch in pain medication. Alcohol intoxication. Supportive care. Watch for withdrawal - Chest pain. Negative Lexiscan.continue with ASA 81 mg qd - lactic acidosis. to r/o sepsis. No signs of sepsis currently. Blood culture showed no growth to date. Recheck Lactic acid level. - Chronic systolic CHF. Stable. with EF of 30 -35 % as of 10/20 Continue with carvdilol and Lisinopril - Non ischemic cardiomyopathy s/p pacemaker. Likely secondary to ETOH abuse - ETOH abuse with elevated ETOH level off 11 on admission. also had prior history of cocaine abuse Constitutional cessation was done. - DVT prophylaxis with Heparin Subjective Date of service: 03/31/17 Principal diagnosis: DK, chest pain. Interval history: Patient is seen and examined. No new compression. Objective - Constitutional Vitals: Vital Signs - 12hr 03/31/17 03/31/17 03/31/17 07:56 08:26 10:00 Temperature 97.4 F L Pulse Rate 70 67 Respiratory 18 20 Rate Blood Pressure Blood Pressure 123/84 [Left] O2 Sat by Pulse 97 Oximetry 03/31/17 03/31/17 12:17 15:14 Temperature 98.1 F 98.0 F Pulse Rate 78 81 Respiratory 78 H 18 Rate Blood Pressure 120/60 Blood Pressure 133/76 [Left] O2 Sat by Pulse 95 95 Oximetry General appearance: Present: no acute distress, well-nourished - EENT Eyes: PERRL, EOM intact - Neck Neck: supple, normal ROM - Respiratory Respiratory effort: normal Respiratory: bilateral: CTA - Breasts Breasts: normal - Cardiovascular Rhythm: regular Heart Sounds: Present: S1 & S2. Absent: gallop, rub Extremities: pulses intact, No edema, normal color, Full ROM - Gastrointestinal General gastrointestinal: Present: soft, non-tender, non-distended, normal bowel sounds - Integumentary Integumentary: clear, warm, dry - Musculoskeletal Musculoskeletal: 1, strength equal bilaterally - Neurologic Neurologic: moves all extremities - Psychiatric Psychiatric: memory intact, appropriate mood/affect, intact judgment & insight - Labs CBC & Chem 7: 03/31/17 15:38 03/31/17 15:38 Labs: Abnormal lab results 03/30/17 03/30/17 03/31/17 Range/Units 16:17 21:32 07:40 RBC (3.65-5.03) M/mm3 BUN (9-20) mg/dL Glucose (75-100) mg/dL POC Glucose 182 H 159 H 230 H (70-105) 03/31/17 03/31/17 03/31/17 Range/Units 11:31 15:38 15:38 RBC 5.12 H (3.65-5.03) M/mm3 BUN 6 L (9-20) mg/dL Glucose 65 L (75-100) mg/dL POC Glucose 252 H (70-105) - Imaging and cardiology Chest x-ray: report reviewed
[2017-03-31] MEDS: DESYREL PO SCH (21:14)
[2017-04-01] MEDS: PERCOCET 5/325 PO PRN ×3 (01:20→10:00)
[2017-04-01] MEDS: NEURONTIN PO SCH (06:08)
[2017-04-01] MEDS: HEPARIN SUB-Q SCH (06:09)
[2017-04-01 07:45] LABS: Basophils % (Auto) 0.3 % (0.0-1.8); Eosinophils % (Auto) 0.6 % (0.0-4.3); Hematocrit 44.9 % (35.5-45.6); Hemoglobin 14.4 gm/dl (11.8-15.2); Mean Corpuscular HGB Conc 32 % (32-34); Mean Corpuscular Hemoglobin 29 pg (28-32); Mean Corpuscular Volume 89 fl (84-94); Platelet Count 239 K/mm3 (140-440); Red Blood Count 5.06 M/mm3 (3.65-5.03); Red Cell Distribution Width 13.4 % (13.2-15.2)
[2017-04-01 07:52] VITALS: BP 140/77
[2017-04-01 08:05] LABS: Alanine Aminotransferase 76 units/L (7-56); Albumin 3.9 g/dL (3.9-5); Albumin/Globulin Ratio 1.4 %; Alkaline Phosphatase 89 units/L (35-129); Anion Gap 19 mmol/L; BUN/Creatinine Ratio 9; Blood Urea Nitrogen 8 mg/dL (9-20); Calcium 8.8 mg/dL (8.4-10.2); Carbon Dioxide 25 mmol/L (22-30); Chloride 101.1 mmol/L (98-107); Glucose 299 mg/dL (75-100); Sodium 141 mmol/L (137-145); Total Protein 6.7 g/dL (6.3-8.2)
[2017-04-01] MEDS: GLUCOPHAGE PO SCH (08:30)
[2017-04-01] MEDS: NOVOLOG SUB-Q SCH (08:30)
[2017-04-01] MEDS: COREG PO SCH (09:58)
[2017-04-01] MEDS: ECOTRIN PO SCH (09:58)
[2017-04-01] MEDS: PEPCID PO SCH (09:58)
== END 2017-04-01 10:57 | disposition left against medical advice (07) | DRG 638 ==
LOC: ED 02:30 → CC1 07:57 → 4A 18:35
PROVIDERS: ADMIT Internal Medicine; ATTEND Family Medicine
PROC: 3E0234Z Introduction of Serum, Toxoid and Vaccine into Muscle, Percutaneous Approach (ICD-10-PCS; principal; 2017-03-29)
DX: E11.10 Type 2 diabetes mellitus with ketoacidosis without coma (principal); I42.9 Cardiomyopathy, unspecified; I50.22 Chronic systolic (congestive) heart failure; F10.129 Alcohol abuse with intoxication, unspecified; F17.200 Nicotine dependence, unspecified, uncomplicated; Y90.9 Presence of alcohol in blood, level not specified; E11.42 Type 2 diabetes mellitus with diabetic polyneuropathy; Z53.21 Procedure and treatment not carried out due to patient leaving prior to being seen by health care provider; I11.0 Hypertensive heart disease with heart failure; J44.9 Chronic obstructive pulmonary disease, unspecified; I25.2 Old myocardial infarction; Z95.0 Presence of cardiac pacemaker; Z90.49 Acquired absence of other specified parts of digestive tract; Z79.82 Long term (current) use of aspirin; Z79.84 Long term (current) use of oral hypoglycemic drugs; Z23 Encounter for immunization; Z86.73 Personal history of transient ischemic attack (TIA), and cerebral infarction without residual deficits; Z79.899 Other long term (current) drug therapy; Z82.49 Family history of ischemic heart disease and other diseases of the circulatory system
CPT/HCPCS: 36415; 70450; 71010; 78452; 80048; 80053; 80307; 80320; 81001; 82010; 82140; 82150; 82962; 83036; 83690; 83735; 83880; 84100; 84443; 84484; 85025; 85027; 85610; 85730; 87040; 90732; 93005; 93010; 93017; 96361; 96374; 96375; 96376; A9270-GY; A9502; G0480; J1644; J1815; J2060; J2270; J2405; J2543; J2785; J3370; J7030; J7040; J7050

== ENCOUNTER 2017-11-27 20:02 | Emergency (ER) | payer SELFPAY ==
[2017-11-27] MEDS ORDERED: ASPIRIN PO ONE (20:32)
[2017-11-27 20:48] LABS: Basophils # (Auto) 0.1 K/mm3 (0.0-0.1); Basophils % (Auto) 1.3 % (0.0-1.8); Eosinophils % (Auto) 0.2 % (0.0-4.3); Hematocrit 40.5 % (35.5-45.6); Hemoglobin 13.6 gm/dl (11.8-15.2); Lymphocytes # (Auto) 1.5 K/mm3 (1.2-5.4); Lymphocytes % (Auto) 18.8 % (13.4-35.0); Mean Corpuscular HGB Conc 34 % (32-34); Mean Corpuscular Hemoglobin 30 pg (28-32); Mean Corpuscular Volume 89 fl (84-94); Monocytes # (Auto) 0.9 K/mm3 (0.0-0.8); Monocytes % (Auto) 11.8 % (0.0-7.3); Platelet Count 269 K/mm3 (140-440); Red Blood Count 4.54 M/mm3 (3.65-5.03); Red Cell Distribution Width 13.8 % (13.2-15.2)
[2017-11-27 20:59] LABS: BUN/Creatinine Ratio 14; Blood Urea Nitrogen 15 mg/dL (9-20); Calcium 9.3 mg/dL (8.4-10.2); Hemolysis Index 9
[2017-11-27 21:08] LABS: INR 0.98 (0.87-1.13); Partial Thromboplastin Time 22.6 Sec. (24.2-36.6)
--- NOTE | 2017-11-27 22:00 | XRay Report ---
FINAL REPORT EXAM: XR HIP 2-3V RT HISTORY: right hip jessie TECHNIQUE: Frontal view of the pelvis and hips and frontal and frog-lateral view right hip Comparison: None FINDINGS: There is evidence of degenerative change of the hip joints bilaterally, left greater than right. There is no evidence of fracture or subluxation. There is the appearance of an osseous bump at the femoral head neck junction bilaterally with decreased offset the. This can be seen with femoral acetabular impingement syndrome There is degenerative change of the pubic symphysis. IMPRESSION: 1. Evidence of degenerative change hip joints bilaterally, left greater than right and of the pubic symphysis 2. Anatomic changes of the femoral head/neck bilaterally which can be seen with femoral acetabular impingement syndrome. The if further imaging is required, MRI may be helpful.
--- NOTE | 2017-11-27 22:48 | Cat Scan Report ---
FINAL REPORT EXAM: CT HEAD/BRAIN WO CON HISTORY: neck pain TECHNIQUE: CT was performed from the foramen magnum through the vertex in the axial plane without the use of intravenous contrast. PRIORS: 03/28/2017 FINDINGS: The ledesma/white matter attenuation pattern is normal. There is no mass lesion or mass effect. There are no abnormal extra-axial fluid collections. There is no evidence of acute intracranial hemorrhage or infarct. The ventricles are of normal size and configuration. The skull and orbits are unremarkable. The visualized paranasal sinuses are clear. IMPRESSION: Normal CT of the head.
[2017-11-27] MEDS ORDERED: SUBLIMAZE IV ONE (22:52)
[2017-11-27] MEDS ORDERED: ZOFRAN IV ONE (22:52)
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
--- NOTE | 2017-11-27 23:41 | Cat Scan Report ---
FINAL REPORT PROCEDURE: CT CERVICAL SPINE WO CON TECHNIQUE: Computerized tomography of the cervical spine was performed from the skull base to T1 without contrast material. HISTORY: neck pain COMPARISON: No prior studies are available for comparison. FINDINGS: No fracture or subluxation is visualized. Prevertebral soft tissues appear normal. Posterior elements are intact. Bone density appears normal. There is anterior osteophytic spurring at C4-5 and the C5-6 and C6-7 disc spaces. There is mild posterior osteophytic spurring at C4-5 disc space. No focal disc herniation or spinal stenosis is seen. The posterior osteophytic spurs do obscure portions of the anterior epidural space without definite cord compression or spinal stenosis. The neural foramina appear adequate. Disc spaces otherwise are unremarkable. IMPRESSION: Mild degenerative disc disease as described. No focal disc herniation spinal stenosis or fracture is visualized..
--- NOTE | 2017-11-28 00:15 | Cat Scan Report ---
FINAL REPORT PROCEDURE: CT FACIAL BONES WO CON TECHNIQUE: Computerized tomography of the facial bones and soft tissues with axial and coronal sections performed from the cranial aspect of the frontal sinuses to the caudal portion of the mandible without contrast material. HISTORY: jaw pain COMPARISON: No prior studies are available for comparison. FINDINGS: There is mild deformity of the right side of the nasal bone anteriorly. This may be related to old trauma. There appears to been a fracture. Correlation with physical exam recommended to exclude an acute fracture of the nasal bone. The orbits are intact as are the zygomas and zygomatic arches and vogt of the paranasal sinuses. The mandible is intact. There is no fracture or dislocation identified. Severe dental disease is present with multiple large cavity visualized. There is bony reabsorption or erosion around the roots of 2nd molar on the right and 3rd molar on the left, both in the mandible. Paranasal sinuses are clear. IMPRESSION: Severe dental disease present with large cavities and multiple teeth as well as erosions around the roots of molars in the right and left side of the mandible as described. No fractures of the mandible are seen. Deformity of the nasal bone as described. This may be related to old trauma. Correlation with physical exam recommended to exclude an acute nasal bone fracture.
--- NOTE | 2017-11-28 00:35 | Cat Scan Report ---
FINAL REPORT PROCEDURE: CT ABDOMEN PELVIS W CON TECHNIQUE: Computerized axial tomography of the abdomen and pelvis was performed after the IV injection of iodinated nonionic contrast. HISTORY: diffuse abdominal pain after fall down stairs COMPARISON: No prior studies are available for comparison. FINDINGS: Lower Lung mullen: There is mild dependent atelectasis. Cardiac leads visualized in the right side of the heart. Upper Abdomen: The liver, the gallbladder, the adrenal glands, the pancreas and spleen are unremarkable. No evidence of organ laceration. Kidneys, Ureters and Urinary bladder: The kidneys are unremarkable. No renal calculi or masses are seen. There is no hydronephrosis. The ureters are mildly prominent likely secondary to massively distended urinary bladder. The urinary bladder is otherwise unremarkable. Retroperitoneum: Atherosclerotic changes are seen in the abdominal aorta. No aneurysm is visualized. No retroperitoneal hemorrhage visualized Nonspecific subcentimeter lymph nodes are seen in the retroperitoneum. No pathologically enlarged lymph nodes are identified. Bowel: Bowel loops are unremarkable. No evidence of bowel obstruction ascites, abnormal fluid collections or free intraperitoneal gas. Reproductive organs: Prostate gland does not appear to be enlarged. Other: No fracture or dislocation visualized. There is however moderate subcutaneous edema seen overlying the lateral aspect of the right hip and pelvis. I do not see discrete hematoma. IMPRESSION: Subcutaneous edema seen lateral to the right hip and pelvis without a discrete hematoma. No fractures or organ laceration are visualized. Cardiac leads visualized in the right side of the heart. Urinary bladder is massively distended. The ureters are mildly prominent likely secondary to the distended bladder. Kidneys ureters and urinary bladder otherwise are unremarkable.
[2017-11-28 01:42] VITALS: BP 138/85
== END 2017-11-28 01:42 | disposition home or self-care (01) ==
LOC: ED 20:02
DX: S70.01XA Contusion of right hip, initial encounter (principal); S00.83XA Contusion of other part of head, initial encounter; S06.9X1A Unspecified intracranial injury with loss of consciousness of 30 minutes or less, initial encounter; K08.9 Disorder of teeth and supporting structures, unspecified; I11.0 Hypertensive heart disease with heart failure; I50.9 Heart failure, unspecified; E11.9 Type 2 diabetes mellitus without complications; J44.9 Chronic obstructive pulmonary disease, unspecified; I25.2 Old myocardial infarction; F17.210 Nicotine dependence, cigarettes, uncomplicated; Z95.818 Presence of other cardiac implants and grafts; Z90.49 Acquired absence of other specified parts of digestive tract; Z79.4 Long term (current) use of insulin; Z79.899 Other long term (current) drug therapy; W10.9XXA Fall (on) (from) unspecified stairs and steps, initial encounter; Y93.89 Activity, other specified; Y92.89 Other specified places as the place of occurrence of the external cause; Y99.8 Other external cause status
CPT/HCPCS: 36415; 70450; 70486; 72125; 73502; 74177; 80048; 84484; 85025; 85610; 85730; 93005; 93010; 96374; 96375; 99285; J2405; J3010; Q9967

== ENCOUNTER 2017-12-11 07:13 | Emergency (ER) | payer SELFPAY ==
--- NOTE | 2017-12-11 09:29 | XRay Report ---
Single view chest: History: Chest pain. Findings: Normal cardiomediastinal silhouette. Trachea is midline. Stable pacemaker. No consolidation, pneumothorax or pleural effusion. Impression: No acute cardiopulmonary findings.
[2017-12-11 09:57] LABS: INR 1.01 (0.87-1.13)
[2017-12-11 09:58] LABS: Partial Thromboplastin Time 21.5 Sec. (24.2-36.6)
[2017-12-11 11:03] LABS: Basophils % (Auto) 0.6 % (0.0-1.8); Eosinophils % (Auto) 0.7 % (0.0-4.3); Hematocrit 39.1 % (35.5-45.6); Hemoglobin 12.9 gm/dl (11.8-15.2); Lymphocytes # (Auto) 1.2 K/mm3 (1.2-5.4); Lymphocytes % (Auto) 21.8 % (13.4-35.0); Mean Corpuscular HGB Conc 33 % (32-34); Mean Corpuscular Hemoglobin 30 pg (28-32); Mean Corpuscular Volume 89 fl (84-94); Monocytes # (Auto) 0.6 K/mm3 (0.0-0.8); Monocytes % (Auto) 10.9 % (0.0-7.3); Platelet Count 321 K/mm3 (140-440); Red Blood Count 4.38 M/mm3 (3.65-5.03); Red Cell Distribution Width 13.2 % (13.2-15.2)
[2017-12-11 11:24] LABS: BUN/Creatinine Ratio 12; Blood Urea Nitrogen 12 mg/dL (9-20); Hemolysis Index 30
--- NOTE | 2017-12-11 13:04 | Cat Scan Report ---
CT scan of head without IV contrast: History: Syncope. Findings: Ventricles are normal in size and midline in location. No evidence of acute ischemia, hemorrhage or mass. No extra-axial fluid collection. Normal sinuses and mastoid air cells. Impression: No acute intracranial abnormality.
--- NOTE | 2017-12-11 14:27 | Emergency Department Report ---
ED Syncope HPI - General Chief Complaint: Pain General Stated Complaint: Syncope Time Seen by Provider: 12/11/17 08:28 Source: patient - History of Present Illness Initial Comments: 52-year-old male presents to the emergency department with complaints of syncopal episodes 3 while at home. Patient was admitted to the hospital 5 days ago for dizziness and chest pain. Patient left the hospital the next day AMA. Patient states upon returning home he has had several syncopal episodes. Patient also complaining of chronic neuropathic pain in bilateral lower extremities. Patient states chest pain and shortness of breath are both ongoing Timing/Prior Episodes: recent history Precipitating Factors: Positive: lightheadedness Context: standing Loss of Consciousness: brief (seconds) Current Symptoms: chest pain. denies: headache, lightheadedness - Related Data Allergies/Adverse Reactions: Allergies No Known Allergies Allergy (Verified 11/29/14 22:56) Home Medications: Ambulatory Orders Insulin Aspart Prot/Aspart(Nf) [Novolog Mix 70/30] 7 units SQ BID 12/06/17 ED Review of Systems ROS: Stated complaint: KENNETH Other details as noted in HPI Comment: All other systems reviewed and negative Respiratory: shortness of breath Cardiovascular: chest pain. denies: palpitations Gastrointestinal: denies: nausea, vomiting Musculoskeletal: other (chronic BLE pain) Neurological: denies: headache ED Past Medical Hx - Past Medical History Hx Hypertension: Yes Hx CVA: Yes (TIA) Hx Heart Attack/AMI: Yes (Cardiomyopathy) Hx Congestive Heart Failure: Yes Hx Diabetes: Yes Hx Renal Disease: Yes Hx Asthma: No Hx COPD: Yes Hx HIV: No - Surgical History Hx Pacemaker: Yes Hx Internal Defibrillator: Yes Hx Appendectomy: Yes Additional Surgical History: HERNIA SURGERY, Pacemaker - Social History Smoking Status: Smoker, Current Status Unknown Substance Use Type: Alcohol - Medications Home Medications: Home Medications Medication Instructions Recorded Confirmed Last Taken Type Insulin Aspart Prot/Aspart(Nf) 7 units SQ BID 12/06/17 12/11/17 Unknown History [Novolog Mix 70/30] ED Physical Exam - General Limitations: Physical Limitation General appearance: alert, in no apparent distress - Head Head exam: Present: atraumatic, normocephalic, normal inspection - Eye Eye exam: Present: normal appearance, EOMI - Neck Neck exam: Present: normal inspection - Respiratory Respiratory exam: Present: normal lung sounds bilaterally. Absent: respiratory distress - Cardiovascular Cardiovascular Exam: Present: regular rate, normal rhythm - GI/Abdominal GI/Abdominal exam: Present: soft. Absent: distended, tenderness - Extremities Exam Extremities exam: Present: other (no swelling present, tenderness to bilateral lower legs upon palpation) ED Course Vital Signs 12/11/17 12/11/17 12/11/17 07:23 07:30 08:00 Temperature 98.4 F Pulse Rate 94 H 94 H 96 H Respiratory 25 H 14 12 Rate Blood Pressure 117/81 125/84 O2 Sat by Pulse 97 Oximetry 12/11/17 12/11/17 12/11/17 08:30 09:00 09:44 Temperature Pulse Rate 99 H 99 H Respiratory 15 13 Rate Blood Pressure 121/81 113/76 121/81 O2 Sat by Pulse 97 95 Oximetry 12/11/17 12/11/17 12/11/17 10:04 10:26 10:32 Temperature Pulse Rate Respiratory 16 Rate Blood Pressure 121/81 121/81 O2 Sat by Pulse 74 L 99 99 Oximetry 12/11/17 12/11/17 12/11/17 11:00 11:30 12:00 Temperature Pulse Rate 87 93 H 90 Respiratory 13 12 14 Rate Blood Pressure 115/75 121/76 119/73 O2 Sat by Pulse 98 94 97 Oximetry 12/11/17 12/11/17 12/11/17 12:30 13:00 14:06 Temperature Pulse Rate 97 H 90 Respiratory 19 15 Rate Blood Pressure 119/73 119/73 119/73 O2 Sat by Pulse 97 99 Oximetry 12/11/17 14:33 Temperature Pulse Rate Respiratory Rate Blood Pressure 119/73 O2 Sat by Pulse 100 Oximetry ED Medical Decision Making - Lab Data Result diagrams: 12/11/17 10:51 12/11/17 10:51 - EKG Data EKG shows normal: sinus rhythm (nml), axis (nml), intervals (nml), QRS complexes (nml), ST-T waves (nml) - EKG Data Interpretation: normal EKG - Radiology Data Radiology results: report reviewed - Medical Decision Making 52 yo M w/ chest pain, SOB, syncopal episodes. Left AMA several days ago during dizziness and chest pain workup. EKG and labs unremarkable. Spoke w/ Dr Hickey, hospitalist, will admit. - Differential Diagnosis arrythmia, orthostasis, ACS Critical care attestation.: If time is entered above; I have spent that time in minutes in the direct care of this critically ill patient, excluding procedure time. ED Disposition Clinical Impression: Syncope Disposition: OP ADMIT IP TO THIS HOSP Is pt being admited?: Yes Condition: Stable Instructions: Syncope (ED) Referrals: PRIMARY CARE, [Primary Care Provider] - 3-5 Days Time of Disposition: 12:30
--- NOTE | 2017-12-11 16:54 | History and Physical Report ---
History of Present Illness Chief complaint: I keep passing out History of present illness: 52 YO Male with DM, CVA, HTN, AK, CHF, COPD, Nicotine Dependence, Noncompliance presents to ED for evaluation. Pt seen and evaluated in ED and found to have Pulmonary Embolus. PT initiated on therapeutic anticoagulation. Pt left AMA prior to completion of workup and therapy. Pt counseled regarding risks of worsening symptoms, and . Pt left AMA. Past History Past Medical History: COPD, heart failure, hypertension Past Surgical History: appendectomy, hernia repair, Other (ICD Placement) Social history: single, smoking Family history: diabetes, hypertension Medications and Allergies Allergies Allergy/AdvReac Type Severity Reaction Status Date / Time No Known Allergies Allergy Verified 11/29/14 22:56 Home Medications Medication Instructions Recorded Confirmed Last Taken Type Insulin Aspart Prot/Aspart(Nf) 7 units SQ BID 12/06/17 12/11/17 Unknown History [Novolog Mix 70/30] Active Meds: Active Medications Apixaban (Eliquis) 10 mg PO Q12HR ROSALINDA; Protocol Insulin Human Isoph/Insulin Regular (Humulin 70/30) 10 unit SUB-Q ONCE ONE Stop: 12/11/17 17:10 Review of Systems Constitutional: weakness, no weight loss, no weight gain, no fever, no chills Ears, nose, mouth and throat: no ear pain, no ear discharge, no tinnitis, no decreased hearing, no nose pain Cardiovascular: syncope, no orthopnea, no palpitations, no rapid/irregular heart beat Respiratory: no cough, no cough with sputum, no excessive sputum, no hemoptysis Gastrointestinal: no abdominal pain, no nausea, no vomiting, no diarrhea Genitourinary Male: no dysuria, no hematuria, no flank pain, no discharge, no urinary frequency, no urinary hesitancy Rectal: no pain, no incontinence, no bleeding Musculoskeletal: no neck stiffness, no neck pain, no shooting arm pain, no arm numbness/tingling, no shooting leg pain Integumentary: no rash, no pruritis, no redness, no sores, no wounds Neurological: no transient paralysis, no paralysis, no weakness, no parathesias , no tingling, no seizures Psychiatric: no anxiety, no memory loss, no change in sleep habits, no sleep disturbances, no hypersomnia, no change in appetite Endocrine: no cold intolerance, no heat intolerance, no polyphagia, no excessive thirst, no polydipsia, no polyuria Hematologic/Lymphatic: no easy bruising, no easy bleeding, no lymphadenopathy, no lymphedema Allergic/Immunologic: no urticaria, no allergic rhinitis, no wheezing, no persistent infections, no anaphylaxis, no angioedema Exam - Constitutional Vitals: Temp Pulse Resp BP Pulse Ox 98.4 F 90 15 119/73 100 12/11/17 07:30 12/11/17 13:00 12/11/17 13:00 12/11/17 14:33 12/11/17 14:33 General appearance: Present: mild distress - EENT Eyes: Present: PERRL ENT: hearing intact, clear oral mucosa - Neck Neck: Present: supple, normal ROM - Respiratory Respiratory effort: normal Respiratory: bilateral: CTA - Cardiovascular Heart Sounds: Present: S1 & S2. Absent: rub, click - Extremities Extremities: pulses symmetrical, No edema Peripheral Pulses: within normal limits - Abdominal General gastrointestinal: Present: soft, non-tender, non-distended, normal bowel sounds Male genitourinary: Present: normal - Integumentary Integumentary: Present: clear, warm, dry - Musculoskeletal Musculoskeletal: gait normal, strength equal bilaterally - Psychiatric Psychiatric: appropriate mood/affect, intact judgment & insight - Neurologic Neurologic: CNII-XII intact, moves all extremities Results - Labs CBC & Chem 7: 12/11/17 10:51 12/11/17 10:51 Labs: Abnormal lab results 12/11/17 12/11/17 12/11/17 Range/Units 09:23 09:23 10:51 [place] % (Auto) 10.9 H (0.0-7.3) % APTT 21.5 L (24.2-36.6) Sec. D-Dimer 537.33 H (0-234) ng/mlDDU Sodium (137-145) mmol/L Chloride (98-107) mmol/L Glucose (75-100) mg/dL 12/11/17 Range/Units 10:51 [place] % (Auto) (0.0-7.3) % APTT (24.2-36.6) Sec. D-Dimer (0-234) ng/mlDDU Sodium 134 L D (137-145) mmol/L Chloride 94.7 L (98-107) mmol/L Glucose 425 H (75-100) mg/dL Assessment and Plan - Patient Problems (1) Pulmonary embolism Status: Acute Qualifiers: Chronicity: acute Plan to address problem: Therapeutic Anticoagulation, supportive care. Pt left AMA prior to completion or workup and treatment. (2) DVT prophylaxis Status: Acute Plan to address problem: SCD to BLE while in bed.
--- NOTE | 2017-12-11 17:01 | Cat Scan Report ---
FINAL REPORT EXAM: CT ANGIO CHEST HISTORY: chest pain TECHNIQUE: Following administration of IV contrast axial helical imaging was performed through the chest with sagittal and coronal reformatted images and maximum intensity projection images obtained. Comparison: Chest x-ray dated December 06, 2017 FINDINGS: There is platelike atelectasis or scar formation in the left lower lobe. There is no evidence of infiltrate, pneumothorax or pleural fluid collection. The trachea and bronchi are patent. The heart appears to be normal size. The thoracic aorta is normal caliber. There is no evidence of mediastinal adenopathy. There are filling defects in left lobar and segmental pulmonary arteries consistent with pulmonary artery emboli. The visualized portion of the upper abdomen is unremarkable. The bony structures are unremarkable. IMPRESSION: 1. Evidence of pulmonary artery emboli in left lobar and segmental pulmonary arteries. 2. Platelike atelectasis or scar formation left lower lobe.
[2017-12-11 18:27] VITALS: BP 106/79
[2017-12-11] MEDS ORDERED: ELIQUIS PO SCH (22:00)
== END 2017-12-11 18:28 | disposition admitted as inpatient to this hospital (09) ==
LOC: ED 07:13
DX: R55 Syncope and collapse (principal); R07.89 Other chest pain; I11.0 Hypertensive heart disease with heart failure; I50.9 Heart failure, unspecified; I43 Cardiomyopathy in diseases classified elsewhere; E13.8 Other specified diabetes mellitus with unspecified complications; F17.200 Nicotine dependence, unspecified, uncomplicated; J44.9 Chronic obstructive pulmonary disease, unspecified; Z86.73 Personal history of transient ischemic attack (TIA), and cerebral infarction without residual deficits; Z95.0 Presence of cardiac pacemaker; Z90.49 Acquired absence of other specified parts of digestive tract
CPT/HCPCS: 36415; 70450; 71045; 71275; 80048; 83880; 84484; 85025; 85379; 85610; 85730; 93005; 93010; 96372; 99285; Q9967; J1815

== ENCOUNTER 2017-12-17 04:28 | Emergency (ER) | payer SELFPAY ==
--- NOTE | 2017-12-17 04:48 | Emergency Department Report ---
<ZA AGUSTIN - Last Filed: 12/17/17 05:38> ED Shortness of Breath HPI - General Chief Complaint: Dyspnea/Respdistress Stated Complaint: KENNETH Time Seen by Provider: 12/17/17 04:44 Source: EMS Mode of arrival: Stretcher Limitations: No Limitations - History of Present Illness Initial Comments: Mr. Rich is 52 yo male with hx of IDDM , diabetic neuropathy, systolic heart failure, pacemaker who presents with difficulty breathing. Found at floor of [facility]. BG was 584 on arrival on scene. Patient unable to give much hx due to respiratory difficulty. medical hx obtained from EMR. - Related Data Home Medications Medication Instructions Recorded Confirmed Last Taken Insulin Aspart Prot/Aspart(Nf) 7 units SQ BID 12/06/17 12/11/17 Unknown [Novolog Mix 70/30] Allergies Allergy/AdvReac Type Severity Reaction Status Date / Time No Known Allergies Allergy Verified 11/29/14 22:56 ED Review of Systems ROS: Stated complaint: KENNETH Other details as noted in HPI Comment: Unobtainable due to pts medical conditions ED Past Medical Hx - Past Medical History Previous Medical History?: Yes Hx Hypertension: Yes Hx CVA: Yes (TIA) Hx Heart Attack/AMI: Yes (Cardiomyopathy) Hx Congestive Heart Failure: Yes Hx Diabetes: Yes Hx Renal Disease: Yes Hx Asthma: No Hx COPD: Yes Hx HIV: No - Surgical History Past Surgical History?: Yes Hx Pacemaker: Yes Hx Internal Defibrillator: Yes Hx Appendectomy: Yes Additional Surgical History: HERNIA SURGERY, Pacemaker - Social History Smoking Status: Unknown if ever smoked Substance Use Type: Alcohol - Medications Home Medications: Home Medications Medication Instructions Recorded Confirmed Last Taken Type Insulin Aspart Prot/Aspart(Nf) 7 units SQ BID 12/06/17 12/11/17 Unknown History [Novolog Mix 70/30] ED Physical Exam - General Limitations: No Limitations General appearance: alert, appears intoxicated, in distress (kussmaul breathing) - Head Head exam: Present: atraumatic, normocephalic - Eye Eye exam: Present: normal appearance, PERRL - ENT ENT exam: Present: mucous membranes dry - Neck Neck exam: Present: normal inspection. Absent: tenderness, meningismus - Respiratory Respiratory exam: Present: normal lung sounds bilaterally, respiratory distress , accessory muscle use. Absent: wheezes, rales, rhonchi - Cardiovascular Cardiovascular Exam: Present: regular rate, normal rhythm, normal heart sounds. Absent: irregular rhythm - GI/Abdominal GI/Abdominal exam: Present: soft. Absent: distended, tenderness, guarding, rebound - Extremities Exam Extremities exam: Present: full ROM - Neurological Exam Neurological exam: Present: alert - Psychiatric Psychiatric exam: Present: flat affect - Skin Skin exam: Present: warm, dry, intact, normal color ED Course Vital Signs 12/17/17 12/17/17 12/17/17 04:44 08:21 08:30 Temperature 97.7 F Pulse Rate 98 H 97 H 92 H Respiratory 20 19 12 Rate Blood Pressure 97/52 Blood Pressure 149/86 [Right] O2 Sat by Pulse 97 97 98 Oximetry 12/17/17 12/17/17 12/17/17 08:45 09:00 09:15 Temperature Pulse Rate 91 H 91 H 88 Respiratory 14 15 9 L Rate Blood Pressure 97/52 103/61 103/61 Blood Pressure [Right] O2 Sat by Pulse 98 98 98 Oximetry 12/17/17 12/17/17 12/17/17 09:30 09:45 10:00 Temperature Pulse Rate 97 H 87 86 Respiratory 14 11 L 12 Rate Blood Pressure 112/56 112/56 106/64 Blood Pressure [Right] O2 Sat by Pulse 99 100 97 Oximetry 12/17/17 12/17/17 12/17/17 10:15 10:30 10:45 Temperature Pulse Rate 87 88 89 Respiratory 11 L 12 15 Rate Blood Pressure 106/64 110/67 110/67 Blood Pressure [Right] O2 Sat by Pulse 97 97 96 Oximetry 12/17/17 12/17/17 12/17/17 11:00 11:15 11:30 Temperature Pulse Rate 86 85 87 Respiratory 11 L 11 L 14 Rate Blood Pressure 116/75 116/75 109/65 Blood Pressure [Right] O2 Sat by Pulse 97 97 98 Oximetry 12/17/17 12/17/17 12/17/17 11:45 12:00 12:30 Temperature Pulse Rate 86 87 86 Respiratory 12 11 L 14 Rate Blood Pressure 109/65 110/69 115/66 Blood Pressure [Right] O2 Sat by Pulse 97 98 98 Oximetry 12/17/17 12/17/17 12/17/17 13:00 13:30 14:00 Temperature Pulse Rate 91 H 97 H Respiratory 13 19 Rate Blood Pressure 114/70 89/49 105/59 Blood Pressure [Right] O2 Sat by Pulse 100 96 100 Oximetry 12/17/17 14:30 Temperature Pulse Rate 84 Respiratory 10 L Rate Blood Pressure 102/61 Blood Pressure [Right] O2 Sat by Pulse 100 Oximetry ED Medical Decision Making - Lab Data Result diagrams: 12/17/17 05:03 12/17/17 05:03 - EKG Data -: EKG Interpreted by Me EKG shows normal: sinus rhythm, axis, intervals, QRS complexes, ST-T waves Rate: normal - EKG Data Interpretation: no acute changes, normal EKG - Medical Decision Making Mr. Rich presents dyspnea. With elevated blood glucose, I assumed Kussmaul breathing from DKA. However, ABG was normal without respiratory or metabolic acidosis. According to EMR, patient has hx of alcohol and cocaine abuse. I suspect acute intoxication. Will need further observation and w/u. I anticipate discharge if work up is negative for acute process such as MARYLOU or acute CHF. Cardiac stress test in March negative for ischemia. In June and this month, patient left AMA after being treated from DKA and presumed sepsis. Critical care attestation.: If time is entered above; I have spent that time in minutes in the direct care of this critically ill patient, excluding procedure time. ED Disposition Clinical Impression: Hyperglycemia, Altered mental status, Cocaine intoxication Disposition: DC-01 TO HOME OR SELFCARE Condition: Stable Instructions: Diabetic Hyperglycemia (ED), Cocaine Abuse (ED) Referrals: PRIMARY CARE, [Primary Care Provider] - 3-5 Days <TOSHA VERDUZCO - Last Filed: 12/17/17 15:00> ED Course - Reevaluation(s) Reevaluation #1: 12/17/17 14:59 Patient examined by me, in no acute distress. Patient is alert oriented 3. Patient admitted of using cocaine last night. His blood sugar is 185 now no evidence of DKA. I counseled the patient about drug abuse and I offered him drug rehabilitation consult, patient declined. Patient denied any chest pain, shortness of breath, abdominal pain, weakness numbness or tingling sensation. Patient will be discharged home to follow-up with his primary care physician in the next 2-3 days and I told him to return to the ER if his symptoms are not improving. ED Medical Decision Making - Lab Data Result diagrams: 12/17/17 05:03 12/17/17 09:47 ED Disposition Is pt being admited?: No
[2017-12-17] MEDS ORDERED: NACL 0.9% 1000 ML 1,000 ML IV ONE (04:49)
[2017-12-17] MEDS ORDERED: HumuLIN R IV ONE ×2 (04:52→12:58)
[2017-12-17] MEDS ORDERED: HumuLIN R 100 UNITS in NACL 0.9% 99 ML IV SCH (05:00)
--- NOTE | 2017-12-17 05:07 | XRay Report ---
FINAL REPORT EXAM: XR CHEST 1V AP HISTORY: Dyspnea TECHNIQUE: A portable semi-erect view of the chest was obtained and compared the study of 12/06/2017. FINDINGS: The heart size and vascularity appear normal. There is a bipolar pacemaker overlying the left chest wall with the leads in the right atrium and right ventricle. The lungs are clear. Pleural fluid is not seen. The skeletal structures do not show any acute changes. IMPRESSION: No acute cardiopulmonary process.
[2017-12-17 05:24] LABS: Hematocrit 40.3 % (35.5-45.6); Hemoglobin 13.7 gm/dl (11.8-15.2); Mean Corpuscular HGB Conc 34 % (32-34); Mean Corpuscular Hemoglobin 31 pg (28-32); Mean Corpuscular Volume 90 fl (84-94); Platelet Count 371 K/mm3 (140-440); Red Blood Count 4.47 M/mm3 (3.65-5.03); Red Cell Distribution Width 13.1 % (13.2-15.2)
[2017-12-17 06:09] LABS: Basophils % (Manual) 0 % (0.0-1.8); Eosinophils % (Manual) 0 % (0.0-4.3); RBC Morphology Normal; Total Cells Counted 100
[2017-12-17 06:10] LABS: Platelet Estimate Consistent w Auto
[2017-12-17 06:30] LABS: Alanine Aminotransferase 15 units/L (7-56); Albumin 4.7 g/dL (3.9-5); BUN/Creatinine Ratio 13; Blood Urea Nitrogen 19 mg/dL (9-20); Calcium 9.5 mg/dL (8.4-10.2); Hemolysis Index 12; Lipase 10 units/L (13-60)
[2017-12-17 07:11] LABS: Bacteria,Urine 1+ /HPF (Negative); Bilirubin,Urine NEG (Negative); Blood,Urine NEG (Negative); Color,Urine Straw (Yellow); Mucus,Urine FEW /HPF; Protein,Urine <15 mg/dL mg/dL (Negative); Urobilinogen,Urine < 2.0 mg/dL (<2.0); WBC,Urine < 1.0 /HPF (0.0-6.0)
[2017-12-17 07:17] LABS: Amphetamine Screen,Urine PRESUMPTIVE NEGATIVE; Benzodiazepines Screen,Urine PRESUMPTIVE NEGATIVE; Cannabinoid Screen,Urine PRESUMPTIVE NEGATIVE; Methadone Screen,Urine PRESUMPTIVE NEGATIVE; Opiate Screen,Urine PRESUMPTIVE NEGATIVE
[2017-12-17 07:56] LABS: Cocaine Screen,Urine PRESUMPTIVE POSITIVE
[2017-12-17 10:32] LABS: BUN/Creatinine Ratio 14; Blood Urea Nitrogen 17 mg/dL (9-20); Calcium 8.8 mg/dL (8.4-10.2); Hemolysis Index 14
[2017-12-17 15:40] VITALS: BP 123/64
== END 2017-12-17 15:38 | disposition home or self-care (01) ==
LOC: ED 04:28
DX: R06.00 Dyspnea, unspecified (principal); E11.65 Type 2 diabetes mellitus with hyperglycemia; R41.82 Altered mental status, unspecified; F14.129 Cocaine abuse with intoxication, unspecified; I25.2 Old myocardial infarction; I11.0 Hypertensive heart disease with heart failure; I50.9 Heart failure, unspecified; I42.9 Cardiomyopathy, unspecified; J44.9 Chronic obstructive pulmonary disease, unspecified; Z86.73 Personal history of transient ischemic attack (TIA), and cerebral infarction without residual deficits; Z90.89 Acquired absence of other organs; Z95.0 Presence of cardiac pacemaker; Z79.4 Long term (current) use of insulin
CPT/HCPCS: 36415; 71045; 80048; 80053; 80307; 81001; 82140; 82803; 82962; 83690; 83735; 84484; 85007; 85025; 87040; 87086; 93005; 93010; 96361; 96374; 96376; 99285; G0480; J7030; 80320; 96375; J1815

== ENCOUNTER 2018-01-20 08:24 | Inpatient (IN) | payer SELFPAY ==
--- NOTE | 2018-01-20 08:45 | Emergency Department Report ---
ED General Adult HPI - General Stated complaint: NAUSEA VOMITING Time Seen by Provider: 01/20/18 08:38 - Related Data Home Medications Medication Instructions Recorded Confirmed Last Taken Insulin Aspart Prot/Aspart(Nf) 7 units SQ BID 12/06/17 12/11/17 Unknown [Novolog Mix 70/30] Allergies Allergy/AdvReac Type Severity Reaction Status Date / Time No Known Allergies Allergy Verified 11/29/14 22:56 ED Review of Systems ROS: Stated complaint: NAUSEA VOMITING Other details as noted in HPI Constitutional: denies: chills, fever Eyes: denies: eye pain, eye discharge, vision change ENT: denies: ear pain, throat pain Respiratory: denies: cough, shortness of breath, wheezing Cardiovascular: denies: chest pain, palpitations Endocrine: no symptoms reported Gastrointestinal: nausea, vomiting. denies: abdominal pain, diarrhea Genitourinary: denies: urgency, dysuria Musculoskeletal: denies: back pain, joint swelling, arthralgia Skin: denies: rash, lesions Neurological: denies: headache, weakness, paresthesias Psychiatric: denies: anxiety, depression Hematological/Lymphatic: denies: easy bleeding, easy bruising ED Past Medical Hx - Past Medical History Hx Hypertension: Yes Hx CVA: Yes (TIA) Hx Heart Attack/AMI: Yes (Cardiomyopathy) Hx Congestive Heart Failure: Yes Hx Diabetes: Yes Hx Renal Disease: Yes Hx Asthma: No Hx COPD: Yes Hx HIV: No - Surgical History Hx Pacemaker: Yes Hx Internal Defibrillator: Yes Hx Appendectomy: Yes Additional Surgical History: HERNIA SURGERY, Pacemaker - Social History Smoking Status: Unknown if ever smoked Substance Use Type: Alcohol - Medications Home Medications: Home Medications Medication Instructions Recorded Confirmed Last Taken Type Insulin Aspart Prot/Aspart(Nf) 7 units SQ BID 12/06/17 12/11/17 Unknown History [Novolog Mix 70/30] ED Physical Exam - General General appearance: alert, other (uncomfortable) - Head Head exam: Present: atraumatic, normocephalic - Eye Eye exam: Present: normal appearance - ENT ENT exam: Present: mucous membranes moist - Neck Neck exam: Present: normal inspection - Respiratory Respiratory exam: Present: normal lung sounds bilaterally. Absent: respiratory distress - Cardiovascular Cardiovascular Exam: Present: regular rate, normal rhythm. Absent: systolic murmur, diastolic murmur, rubs, gallop - GI/Abdominal GI/Abdominal exam: Present: soft, normal bowel sounds - Rectal Rectal exam: Present: deferred - Extremities Exam Extremities exam: Present: normal inspection - Back Exam Back exam: Present: normal inspection - Neurological Exam Neurological exam: Present: alert, oriented X3 - Psychiatric Psychiatric exam: Present: normal affect, normal mood - Skin Skin exam: Present: warm, dry, intact, normal color. Absent: rash ED Course Vital Signs 01/20/18 01/20/18 01/20/18 08:40 08:46 09:00 Temperature 98 F Pulse Rate 121 H 101 H 105 H Respiratory 18 15 17 Rate Blood Pressure 132/77 136/82 139/83 O2 Sat by Pulse 98 91 92 Oximetry ED Medical Decision Making - Lab Data Result diagrams: 01/20/18 09:09 01/20/18 09:05 - EKG Data -: EKG Interpreted by Me Rate: tachycardia - EKG Data Interpretation: other (sinus tachycardia) - Medical Decision Making Patient received IV boluses of normal saline in addition to an insulin bolus of 10 units and was initiated on a insulin drip while in the emergency department. Patient to be admitted to the hospitalist service in the ICU setting and treated for DKA. He refuses rectal examination while here in the emergency department. He was made aware of the risk of potential bleed and the need for patient to receive anticoagulation as his prior admission in December 2017 patient was diagnosed with a pulmonary embolism for which patient hasn't received no anticoagulation. Hospitalist service made aware of this. - Differential Diagnosis STEMI; NSTEMI; pancreatitis; DKA; electrode abnormality; anemia; Pneumonia Critical Care Time: Yes Critical care time in (mins) excluding proc time.: 40 Critical care attestation.: If time is entered above; I have spent that time in minutes in the direct care of this critically ill patient, excluding procedure time. Critical care time includes time spent performing direct bedside care, physician consultation, and frequent reassessments. ED Disposition Clinical Impression: DKA (diabetic ketoacidoses), Pulmonary embolism Disposition: OP ADMIT IP TO THIS HOSP Is pt being admited?: Yes Condition: Fair Instructions: Diabetic Ketoacidosis (ED) Referrals: PRIMARY CARE, [Primary Care Provider] - 3-5 Days
[2018-01-20] MEDS ORDERED: PROTONIX IV ONE (09:08)
[2018-01-20] MEDS ORDERED: NACL 0.9% 1000 ML 1,000 ML IV ONE ×3 (09:08→19:01)
[2018-01-20] MEDS ORDERED: HumuLIN R IV ONE (09:08)
[2018-01-20] MEDS ORDERED: ZOFRAN IV ONE (09:08)
[2018-01-20 09:23] LABS: Hematocrit 44.9 % (35.5-45.6); Hemoglobin 15.1 gm/dl (11.8-15.2); Mean Corpuscular HGB Conc 34 % (32-34); Mean Corpuscular Hemoglobin 30 pg (28-32); Mean Corpuscular Volume 89 fl (84-94); Platelet Count 323 K/mm3 (140-440); Red Blood Count 5.03 M/mm3 (3.65-5.03); Red Cell Distribution Width 13.5 % (13.2-15.2)
--- NOTE | 2018-01-20 09:33 | XRay Report ---
AP CHEST: HISTORY: chest pain AP view of the chest demonstrates a normal mediastinal and cardiac contour with clear lungs and normal bony and soft tissue structures. 2-lead pacemaker device is unchanged since 12/17/17. IMPRESSION: Unremarkable AP chest.
[2018-01-20 09:37] LABS: Alanine Aminotransferase 19 units/L (7-56); Albumin 4.9 g/dL (3.9-5); BUN/Creatinine Ratio 22; Blood Urea Nitrogen 28 mg/dL (9-20); Calcium 9.7 mg/dL (8.4-10.2); Hemolysis Index 63; Lipase 10 units/L (13-60)
[2018-01-20] MEDS: NACL 0.9% 1000 ML 1,000 ML IV ONE ×2 (09:38→10:31)
[2018-01-20] MEDS ORDERED: D50W (25GM) Syringe IV PRN ×2 (10:13→10:56)
[2018-01-20 10:17] LABS: Basophils % (Manual) 0 % (0.0-1.8); Eosinophils % (Manual) 0 % (0.0-4.3); Total Cells Counted 100
[2018-01-20 10:18] LABS: Platelet Estimate Cons; RBC Morphology Normal; Toxic Granulation 1+
[2018-01-20] MEDS: PROTONIX 80 MG in NACL 0.9% 100 ML IV SCH ×2 (10:30→19:52)
[2018-01-20 10:45] LABS: BUN/Creatinine Ratio 21; Blood Urea Nitrogen 27 mg/dL (9-20); Calcium 9.5 mg/dL (8.4-10.2); Hemolysis Index 14
[2018-01-20] MEDS ORDERED: SODIUM CHLORIDE FLUSH SYRINGE 10 ML IV NR (11:00)
[2018-01-20] MEDS ORDERED: SODIUM CHLORIDE FLUSH SYRINGE 10 ML IV PRN (11:00)
[2018-01-20] MEDS ORDERED: HumuLIN R 100 UNITS in NACL 0.9% 99 ML IV SCH ×2 (11:00)
--- NOTE | 2018-01-20 13:05 | Consultation ---
History of Present Illness Consult date: 01/20/18 Requesting physician: KRISTIAN SRINIVASAN Reason for consult: other (Diabetic ketoacidosis) History of present illness: Patient seen 52-year-old male with past medical history significant for cardiomyopathy with a AICD placement secondary to EF of 30-35% was reduced RV systolic function, Also diabetes uncontrolled with peripheral neuropathy prior history of cocaine use in the past. Patient reports that he has been noncompliant with his medications. Presented to the ED with complaints of abdominal pain that has been ongoing for 3 days position and nausea vomiting. The patient was very mild forthcoming with information and did not provide any much information and only allowed limited examination. He is unable to tell me how much insulin and medications that he takes. He was found to be in DKA and insulin infusion initiated. I have been consulter to facilitate ICU admission and critical care management. Patient was seen and examined in the ED. Vitals, labs, medications, chart reviewed. He continues to writhe in pain. He endorses nausea and on going abdominal pain. Past History Past Medical History: CAD, diabetes, other (substance abuse with cocaine, cardiomyopathy) Past Surgical History: Other (AICD placement) Social history: Lives alone, smoking, full code Family history: no significant family history Review of Systems Cardiovascular: no chest pain, no palpitations, no rapid/irregular heart beat, no lightheadedness, no shortness of breath, no leg edema Respiratory: no cough, no cough with sputum, no excessive sputum, no shortness of breath, no congestion, no pain (Y) Gastrointestinal: abdominal pain, nausea, vomiting Endocrine: no high blood sugars Medications and Allergies Allergies Allergy/AdvReac Type Severity Reaction Status Date / Time No Known Allergies Allergy Verified 11/29/14 22:56 Home Medications Medication Instructions Recorded Confirmed Last Taken Type Insulin Aspart Prot/Aspart(Nf) 7 units SQ BID 12/06/17 01/20/18 Unknown History [Novolog Mix 70/30] Active Meds: Active Medications Dextrose (D50w (25gm) Syringe) 50 ml IV PRN PRN PRN Reason: Hypoglycemia Enoxaparin Sodium (Lovenox) 40 mg SUB-Q QDAY ROSALINDA Pantoprazole Sodium 80 mg/ (Sodium Chloride) 100 mls @ 10 mls/hr IV DIRECT ROSALINDA Last Admin: 01/20/18 10:30 Dose: 8 mg/hr, 10 mls/hr Potassium Chloride/Dextrose/Sod Cl (D5w/0.45% Nacl/Kcl 20 Meq) 20 meq in 1,000 mls @ 125 mls/hr IV DIRECT ROSALINDA Insulin Human Regular 100 (units/ Sodium Chloride) 100 mls @ 1 mls/hr IV TITR ROSALINDA; Protocol Last Admin: 01/20/18 11:04 Dose: 6 units/hr, 6 mls/hr Potassium Chloride (Kcl 20meq/100ml) 20 meq in 100 mls @ 100 mls/hr IV Q1H ROSALINDA Stop: 01/20/18 12:59 Insulin Glargine (Lantus) 20 units SUB-Q QHS ROSALINDA Insulin Human Isoph/Insulin Regular (Humulin 70/30) 7 unit SUB-Q BIDDIAB ROSALINDA Pravastatin Sodium (Pravachol) 80 mg PO ONCE ONE Stop: 01/20/18 14:01 Sodium Chloride (Sodium Chloride Flush Syringe 10 Ml) 10 ml IV PRN NR Stop: 01/21/18 10:59 Sodium Chloride (Sodium Chloride Flush Syringe 10 Ml) 10 ml IV BID ROSALINDA Sodium Chloride (Sodium Chloride Flush Syringe 10 Ml) 10 ml IV PRN PRN PRN Reason: LINE FLUSH Physical Examination Vital signs: Vital Signs Temp Pulse Resp BP Pulse Ox 98 F 108 H 18 132/77 99 01/20/18 08:40 01/20/18 08:40 01/20/18 08:40 01/20/18 08:40 01/20/18 08:40 Exam VITAL SIGNS: Reviewed. GENERAL: The patient appeared well nourished and normally developed. Writhing in the bed Vital signs as documented. HEAD: No signs of head trauma. EYES: Pupils are equal. Extraocular motions intact. EARS: Hearing grossly intact. MOUTH: Oropharynx is dry NECK: No adenopathy, no JVD. CHEST: Chest with clear breath sounds bilaterally. No wheezes, rales, or rhonchi. CARDIAC: Regular rate and rhythm. S1 and S2, without murmurs, gallops, or rubs. VASCULAR: No Edema. Peripheral pulses normal and equal in all extremities. ABDOMEN: Soft, tender to palpation with lower abdominal distension( full bladder, 22 week size) No hepato-splenomegaly, BS present and active MUSCULOSKELETAL: Good range of motion of all major joints. Extremities without clubbing, cyanosis or edema. NEUROLOGIC EXAM: Alert and oriented x 3. No focal sensory or strength deficits. Speech normal. Follows commands. PSYCHIATRIC: Mood flat SKIN: No rash or lesions. Results - Laboratory Findings CBC and BMP: 01/22/18 03:27 01/22/18 03:27 Abnormal lab findings: Abnormal Labs 01/20/18 01/20/18 01/20/18 09:05 09:05 09:05 WBC Seg Neuts % (Manual) Lymphocytes % (Manual) Seg Neutrophils # Man Lymphocytes # (Manual) Sodium Chloride 89.7 L Carbon Dioxide 18 L BUN 28 H Glucose 497 H POC Glucose Hemoglobin A1c 15.7 H Phosphorus Magnesium Total Creatine Kinase 186 H Total Protein 8.3 H Cholesterol LDL Cholesterol Direct HDL Cholesterol Lipase 10 L 01/20/18 01/20/18 01/20/18 09:05 09:09 09:23 WBC 12.7 H Seg Neuts % (Manual) 92.0 H Lymphocytes % (Manual) 2.0 L Seg Neutrophils # Man 11.7 H Lymphocytes # (Manual) 0.3 L Sodium Chloride Carbon Dioxide BUN Glucose POC Glucose 394 H Hemoglobin A1c Phosphorus 4.80 H Magnesium 2.50 H Total Creatine Kinase Total Protein Cholesterol 312 H LDL Cholesterol Direct 176 H HDL Cholesterol 156 H Lipase 01/20/18 01/20/18 01/20/18 10:20 10:20 10:20 WBC Seg Neuts % (Manual) Lymphocytes % (Manual) Seg Neutrophils # Man Lymphocytes # (Manual) Sodium 146 H D Chloride Carbon Dioxide BUN 27 H Glucose 316 H POC Glucose 331 H Hemoglobin A1c Phosphorus Magnesium 2.70 H Total Creatine Kinase Total Protein Cholesterol LDL Cholesterol Direct HDL Cholesterol Lipase 01/20/18 11:28 WBC Seg Neuts % (Manual) Lymphocytes % (Manual) Seg Neutrophils # Man Lymphocytes # (Manual) Sodium Chloride Carbon Dioxide BUN Glucose POC Glucose 293 H Hemoglobin A1c Phosphorus Magnesium Total Creatine Kinase Total Protein Cholesterol LDL Cholesterol Direct HDL Cholesterol Lipase - Diagnostic Findings Chest x-ray: image reviewed (Cardiomegaly, Elevated right hemidiaphragm, Cardiac device) Assessment and Plan DKA Leukocytosis Metabolic Acidosis Uncontrolled DM Cardiomyopathy s/p ICD h/o Cardiomyopathy with EF<20% h/o Alcohol/cocaine abuse disorder Abdominal pain with peritoneal irritation Bladder Distension -Admit ICU -Get CT abdomen and pelvis, discussed with hospitalist service to evaluate any intra-abdominal pathology. Check lipase and amylase levels to r/o acute pancreatitis -DKA management per protocol -Keep NPO for now -Symptom management of vomiting - Place ortega catheter, drain the first liter then clamp to avoid decompression hematuria - Prn analgesia - VTE prophylaxis - Flu & pneumovax per protocol The high probability of a clinically significant, sudden or life threatening deterioration of the [endocrine,Urogenital, GI] system(s) required my full and direct attention, intervention and personal management. The aggregate critical care time was [65] minutes. This time is in addition to time spent performing reported procedures but includes the following: [x] Data Review and interpretation [x] Patient assessment and monitoring of vital signs [x] Documentation [x] Medication orders and management
[2018-01-20 13:22] LABS: BUN/Creatinine Ratio 22; Blood Urea Nitrogen 26 mg/dL (9-20); Calcium 9.3 mg/dL (8.4-10.2); Hemolysis Index 8
--- NOTE | 2018-01-20 13:32 | Cat Scan Report ---
CT ABDOMEN PELVIS WITHOUT CONTRAST: HISTORY: abdominal pain. COMPARISON: 11/27/17. TECHNIQUE: Helical CT in 1.25mm intervals without IV contrast. Sagittal and coronal reconstructions. FINDINGS: Lung bases: Normal. Liver: Normal. Biliary system: Normal. Pancreas: Normal. Spleen: Normal. Kidneys/ureters/bladder: The bladder is markedly distended with simple appearing fluid. Minimal bilateral hydronephrosis is suspected. The kidneys are unremarkable. Normal prostate gland. Adrenal glands: Normal. Aorta: Normal. Intestines: Normal. Appendix: Not confidently identified. Ascites: None. Adenopathy: None. Musculoskeletal: Normal. IMPRESSION: Markedly distended bladder minimal bilateral hydronephrosis. Correlate for bladder outlet obstruction.
[2018-01-20] MEDS ORDERED: PRAVACHOL PO ONE (14:00)
--- NOTE | 2018-01-20 16:13 | History and Physical Report ---
History of Present Illness Date of examination: 01/20/18 Date of admission: 01/20/18 11:00 Chief complaint: Abdominal pain, nausea vomiting History of present illness: Patient seen 52-year-old male with past medical history significant for cardiomyopathy with a AICD placement secondary to EF of 30-35% was reduced RV systolic function, Also diabetes uncontrolled with peripheral neuropathy prior history of cocaine use in the past. Patient reports that he has been noncompliant with his medications. Presented to the ED with complaints of abdominal pain that has been ongoing for 3 days position and nausea vomiting. The patient was very mild forthcoming with information and did not provide any much information and only allowed limited examination. He is unable to tell me how much insulin and medications that he takes. Past History Past Medical History: CAD, diabetes, other (substance abuse with cocaine, cardiomyopathy) Past Surgical History: Other (AICD placement) Social history: Lives alone, smoking, full code Family history: no significant family history Medications and Allergies Allergies Allergy/AdvReac Type Severity Reaction Status Date / Time No Known Allergies Allergy Verified 11/29/14 22:56 Home Medications Medication Instructions Recorded Confirmed Last Taken Type Insulin Aspart Prot/Aspart(Nf) 7 units SQ BID 12/06/17 01/20/18 Unknown History [Novolog Mix 70/30] Active Meds: Active Medications Dextrose (D50w (25gm) Syringe) 50 ml IV PRN PRN PRN Reason: Hypoglycemia Enoxaparin Sodium (Lovenox) 40 mg SUB-Q QDAY ROSALINDA Pantoprazole Sodium 80 mg/ (Sodium Chloride) 100 mls @ 10 mls/hr IV DIRECT ROSALINDA Last Admin: 01/20/18 10:30 Dose: 8 mg/hr, 10 mls/hr Potassium Chloride/Dextrose/Sod Cl (D5w/0.45% Nacl/Kcl 20 Meq) 20 meq in 1,000 mls @ 125 mls/hr IV DIRECT ROSALINDA Insulin Human Regular 100 (units/ Sodium Chloride) 100 mls @ 1 mls/hr IV TITR ROSALINDA; Protocol Last Titration: 01/20/18 13:10 Dose: 3 units/hr, 3 mls/hr Potassium Chloride (Kcl 20meq/100ml) 20 meq in 100 mls @ 100 mls/hr IV Q1H ROSALINDA Stop: 01/20/18 12:59 Insulin Glargine (Lantus) 20 units SUB-Q QHS ROSALINDA Insulin Human Isoph/Insulin Regular (Humulin 70/30) 7 unit SUB-Q BIDDIAB ROSALINDA Sodium Chloride (Sodium Chloride Flush Syringe 10 Ml) 10 ml IV PRN NR Stop: 01/21/18 10:59 Sodium Chloride (Sodium Chloride Flush Syringe 10 Ml) 10 ml IV BID ROSALINDA Sodium Chloride (Sodium Chloride Flush Syringe 10 Ml) 10 ml IV PRN PRN PRN Reason: LINE FLUSH Review of Systems Cardiovascular: no chest pain, no palpitations, no rapid/irregular heart beat, no lightheadedness, no shortness of breath, no leg edema Respiratory: no cough, no cough with sputum, no excessive sputum, no shortness of breath, no congestion, no pain (Y) Gastrointestinal: abdominal pain, nausea, vomiting Endocrine: no high blood sugars Exam - Physical Exam Narrative exam: VITAL SIGNS: Reviewed. GENERAL: The patient appeared well nourished and normally developed. Vital signs as documented. HEAD: No signs of head trauma. EYES: Pupils are equal. Extraocular motions intact. EARS: Hearing grossly intact. MOUTH: Oropharynx is normal. NECK: No adenopathy, no JVD. CHEST: Chest with clear breath sounds bilaterally. No wheezes, rales, or rhonchi. CARDIAC: Regular rate and rhythm. S1 and S2, without murmurs, gallops, or rubs. VASCULAR: No Edema. Peripheral pulses normal and equal in all extremities. ABDOMEN: Soft, tender to palpation no sign of distention. No rebound or guarding, and no masses palpated. Bowel Sounds normal. MUSCULOSKELETAL: Good range of motion of all major joints. Extremities without clubbing, cyanosis or edema. NEUROLOGIC EXAM: Alert and oriented x 3. No focal sensory or strength deficits. Speech normal. Follows commands. PSYCHIATRIC: Mood normal. SKIN: No rash or lesions. - Constitutional Vitals: Temp Pulse Resp BP Pulse Ox 98 F 113 H 22 125/76 92 01/20/18 08:40 01/20/18 11:16 01/20/18 11:16 01/20/18 11:16 01/20/18 11:16 Results - Labs CBC & Chem 7: 01/22/18 03:27 01/22/18 03:27 Labs: Laboratory Last Values WBC 12.7 K/mm3 (4.5-11.0) H 01/20/18 09:09 RBC 5.03 M/mm3 (3.65-5.03) 01/20/18 09:09 Hgb 15.1 gm/dl (11.8-15.2) 01/20/18 09:09 Hct 44.9 % (35.5-45.6) 01/20/18 09:09 MCV 89 fl (84-94) 01/20/18 09:09 MCH 30 pg (28-32) 01/20/18 09:09 MCHC 34 % (32-34) 01/20/18 09:09 RDW 13.5 % (13.2-15.2) 01/20/18 09:09 Plt Count 323 K/mm3 (140-440) 01/20/18 09:09 Add Manual Diff Complete 01/20/18 09:09 Total Counted 100 01/20/18 09:09 Seg Neuts % (Manual) 92.0 % (40.0-70.0) H 01/20/18 09:09 Band Neutrophils % 0 % 01/20/18 09:09 Lymphocytes % (Manual) 2.0 % (13.4-35.0) L 01/20/18 09:09 Reactive Lymphs % (Man) 0 % 01/20/18 09:09 Monocytes % (Manual) 6.0 % (0.0-7.3) 01/20/18 09:09 Eosinophils % (Manual) 0 % (0.0-4.3) 01/20/18 09:09 Basophils % (Manual) 0 % (0.0-1.8) 01/20/18 09:09 Metamyelocytes % 0 % 01/20/18 09:09 Myelocytes % 0 % 01/20/18 09:09 Promyelocytes % 0 % 01/20/18 09:09 Blast Cells % 0 % 01/20/18 09:09 Nucleated RBC % Not Reportable 01/20/18 09:09 Seg Neutrophils # Man 11.7 K/mm3 (1.8-7.7) H 01/20/18 09:09 Band Neutrophils # 0.0 K/mm3 01/20/18 09:09 Lymphocytes # (Manual) 0.3 K/mm3 (1.2-5.4) L 01/20/18 09:09 Abs React Lymphs (Man) 0.0 K/mm3 10/17/18 09:09 Monocytes # (Manual) 0.8 K/mm3 (0.0-0.8) 01/20/18 09:09 Eosinophils # (Manual) 0.0 K/mm3 (0.0-0.4) 01/20/18 09:09 Basophils # (Manual) 0.0 K/mm3 (0.0-0.1) 01/20/18 09:09 Metamyelocytes # 0.0 K/mm3 01/20/18 09:09 Myelocytes # 0.0 K/mm3 01/20/18 09:09 Promyelocytes # 0.0 K/mm3 01/20/18 09:09 Blast Cells # 0.0 K/mm3 01/20/18 09:09 WBC Morphology Not Reportable 01/20/18 09:09 Hypersegmented Neuts Not Reportable 01/20/18 09:09 Hyposegmented Neuts Not Reportable 01/20/18 09:09 Hypogranular Neuts Not Reportable 01/20/18 09:09 Smudge Cells Not Reportable 01/20/18 09:09 Toxic Granulation 1+ 01/20/18 09:09 Toxic Vacuolation Not Reportable 01/20/18 09:09 Dohle Bodies Not Reportable 01/20/18 09:09 Pelger-Huet Anomaly Not Reportable 01/20/18 09:09 Tiara Rods Not Reportable 01/20/18 09:09 Platelet Estimate Cons 01/20/18 09:09 Clumped Platelets Not Reportable 01/20/18 09:09 Plt Clumps, EDTA Not Reportable 01/20/18 09:09 Large Platelets Not Reportable 01/20/18 09:09 Giant Platelets Not Reportable 01/20/18 09:09 Platelet Satelliting Not Reportable 01/20/18 09:09 Plt Morphology Comment Not Reportable 01/20/18 09:09 RBC Morphology Normal 01/20/18 09:09 Dimorphic RBCs Not Reportable 01/20/18 09:09 Polychromasia Not Reportable 01/20/18 09:09 Hypochromasia Not Reportable 01/20/18 09:09 Poikilocytosis Not Reportable 01/20/18 09:09 Anisocytosis Not Reportable 01/20/18 09:09 Microcytosis Not Reportable 01/20/18 09:09 Macrocytosis Not Reportable 01/20/18 09:09 Spherocytes Not Reportable 01/20/18 09:09 Pappenheimer Bodies Not Reportable 01/20/18 09:09 Sickle Cells Not Reportable 01/20/18 09:09 Target Cells Not Reportable 01/20/18 09:09 Tear Drop Cells Not Reportable 01/20/18 09:09 Ovalocytes Not Reportable 01/20/18 09:09 Helmet Cells Not Reportable 01/20/18 09:09 Estrella-[place] Bodies Not Reportable 01/20/18 09:09 Ketchum Rings Not Reportable 01/20/18 09:09 Leslie Cells Not Reportable 01/20/18 09:09 Bite Cells Not Reportable 01/20/18 09:09 Crenated Cell Not Reportable 01/20/18 09:09 Elliptocytes Not Reportable 01/20/18 09:09 Acanthocytes (Spur) Not Reportable 01/20/18 09:09 Rouleaux Not Reportable 01/20/18 09:09 Hemoglobin C Crystals Not Reportable 01/20/18 09:09 Schistocytes Not Reportable 01/20/18 09:09 Malaria parasites Not Reportable 01/20/18 09:09 Pradeep Bodies Not Reportable 01/20/18 09:09 Hem Pathologist Commnt No 01/20/18 09:09 Sodium 149 mmol/L (137-145) H 01/20/18 12:05 Potassium 3.7 mmol/L (3.6-5.0) 01/20/18 12:05 Chloride 103.5 mmol/L (98-107) 01/20/18 12:05 Carbon Dioxide 20 mmol/L (22-30) L 01/20/18 12:05 Anion Gap 29 mmol/L 01/20/18 12:05 BUN 26 mg/dL (9-20) H 01/20/18 12:05 Creatinine 1.2 mg/dL (0.8-1.5) 01/20/18 12:05 Estimated GFR > 60 ml/min 01/20/18 12:05 BUN/Creatinine Ratio 22 % 01/20/18 12:05 Glucose 268 mg/dL (75-100) H 01/20/18 12:05 POC Glucose 277 (70-105) H 01/20/18 14:36 Hemoglobin A1c 15.7 % (4-6) H 01/20/18 09:05 Osmolality 343 Mosm/kg 01/20/18 09:05 Calcium 9.3 mg/dL (8.4-10.2) 01/20/18 12:05 Phosphorus 3.20 mg/dL (2.5-4.5) D 01/20/18 10:20 Magnesium 2.70 mg/dL (1.7-2.3) H 01/20/18 10:20 Total Bilirubin 1.10 mg/dL (0.1-1.2) 01/20/18 09:05 AST 17 units/L (5-40) 01/20/18 09:05 ALT 19 units/L (7-56) 01/20/18 09:05 Alkaline Phosphatase 96 units/L (35-129) 01/20/18 09:05 Total Creatine Kinase 186 units/L (55-170) H 01/20/18 09:05 Troponin T < 0.010 ng/mL (0.00-0.029) 01/20/18 09:05 Total Protein 8.3 g/dL (6.3-8.2) H 01/20/18 09:05 Albumin 4.9 g/dL (3.9-5) 01/20/18 09:05 Albumin/Globulin Ratio 1.4 % 01/20/18 09:05 Triglycerides 99 mg/dL (2-149) 01/20/18 09:05 Cholesterol 312 mg/dL (50-199) H 01/20/18 09:05 LDL Cholesterol Direct 176 mg/dL (50-130) H 01/20/18 09:05 HDL Cholesterol 156 mg/dL (40-59) H 01/20/18 09:05 Cholesterol/HDL Ratio 2.00 % 01/20/18 09:05 Lipase 10 units/L (13-60) L 01/20/18 09:05 Plasma/Serum Alcohol < 0.01 % (0-0.07) 01/20/18 09:21 - Imaging and Cardiology CT scan - abdomen: image reviewed (enlarged bladder) Assessment and Plan Assessment and plan: Patient seen 52-year-old male with past medical history significant for cardiomyopathy with a AICD placement secondary to EF of 30-35% was reduced RV systolic function, Also diabetes uncontrolled with peripheral neuropathy prior history of cocaine use in the past. Patient reports that he has been noncompliant with his medications. Presented to the ED with complaints of abdominal pain that has been ongoing for 3 days position and nausea vomiting. The patient was very mild forthcoming with information and did not provide any much information and only allowed limited examination. He is unable to tell me how much insulin and medications that he takes. 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 The high probability of a clinically significant, sudden or life threatening deterioration of the [endocrine, GI] system(s) required my full and direct attention, intervention and personal management. The aggregate critical care time was [75] minutes. This time is in addition to time spent performing reported procedures but includes the following: [x] Data Review and interpretation [x] Patient assessment and monitoring of vital signs [x] Documentation [x] Medication orders and management Advance Directives: Yes Plan of care discussed with patient/family: Yes
[2018-01-20 16:41] LABS: BUN/Creatinine Ratio 21; Blood Urea Nitrogen 25 mg/dL (9-20); Calcium 8.4 mg/dL (8.4-10.2); Hemolysis Index 3
[2018-01-20] MEDS ORDERED: ZOFRAN ODT ONE (16:42)
[2018-01-20] MEDS ORDERED: ZOFRAN ODT PO ONE (18:30)
[2018-01-20] MEDS: D5W/0.45% NACL/KCL 20 MEQ 20 MEQ/1,000 ML BAG IV SCH (19:27)
[2018-01-20] MEDS: ZOFRAN IV PRN (19:27)
[2018-01-20] MEDS ORDERED: NACL 0.9% 1000 ML 1,000 ML IV SCH (20:00)
[2018-01-20] MEDS: KCL 20MEQ/100ML 20 MEQ/100 ML BAG IV SCH ×2 (20:40→20:41)
[2018-01-20 20:41] LABS: BUN/Creatinine Ratio 21; Blood Urea Nitrogen 27 mg/dL (9-20); Calcium 8.8 mg/dL (8.4-10.2); Hemolysis Index 7
[2018-01-20] MEDS: SODIUM CHLORIDE FLUSH SYRINGE 10 ML IV SCH (21:32)
[2018-01-20] MEDS ORDERED: INSULIN ASPART SQ SCH (22:00)
[2018-01-20] MEDS ORDERED: INSULIN ASPART PROTAMINE SQ SCH (22:00)
[2018-01-20] MEDS ORDERED: LANTUS SUB-Q SCH (22:00)
[2018-01-21] MEDS: D5W/0.45% NACL/KCL 20 MEQ 20 MEQ/1,000 ML BAG IV SCH ×2 (04:21→12:34)
[2018-01-21 05:21] LABS: BUN/Creatinine Ratio 23; Blood Urea Nitrogen 21 mg/dL (9-20); Calcium 8.3 mg/dL (8.4-10.2); Hemolysis Index 13
[2018-01-21] MEDS: ZOFRAN IV PRN ×2 (06:14→12:33)
--- NOTE | 2018-01-21 06:40 | Event Note ---
Date: 01/21/18 SILVANA KIRKLAND was called. Patient had a brief unresponsive episode for about 2 seconds Patient appears post ictal Vitals stable, check cardiac enzymes, continue to monitor IV ativan as needed for possible seizure
[2018-01-21] MEDS ORDERED: ATIVAN IV PRN (06:46)
[2018-01-21 08:21] LABS: Creatine Kinase MB 2.3 ng/mL (0.0-4.0)
[2018-01-21] MEDS ORDERED: PHENERGAN PR ONE (09:00)
[2018-01-21] MEDS: PROTONIX 80 MG in NACL 0.9% 100 ML IV SCH (09:44)
--- NOTE | 2018-01-21 10:08 | Consultation ---
History of Present Illness Consult date: 01/21/18 Requesting physician: ELISE TAPIA Consult reason: syncope History of present illness: The pt is a 52 YO male with a past history of recurrent syncope, cardiomyopathy , PPM, diabetes, peripheral neuropathy, cocaine use. He has been seen by our practice on prior hospitalization. He admits that he has not been compliant with any outpatient cardiology follow up. He presented with complaints of nausea , vomiting, abdominal pain and syncope. He states that he was on the bus riding to work yesterday when he experienced a syncopal episode. The business practices officer called EMS. He is a poor historian and provides no additional details. Overnight, code ISAEL was called due to brief unresponsive episode - ? seizure. Telemetry review shows NSR with intermittent pacing spikes, no arrhythmias noted. Pt was hospitalized in 09/2016 at [place]. Per the records, he was admitted there at that time for syncope and chest pain. A [employer] pacemaker was placed for AV block, his EF was 30-35%, AICD was not placed secondary to his ongoing drug use (cocaine). Echo done 09/2016 showed EF 30-35%, mod reduced RV systolic function. He left [facility] before stress test could be obtained. Past History Past Medical History: diabetes, hypertension Past Surgical History: Other (PPM) Medications and Allergies Allergies Allergy/AdvReac Type Severity Reaction Status Date / Time No Known Allergies Allergy Verified 11/29/14 22:56 Home Medications Medication Instructions Recorded Confirmed Last Taken Type Insulin Aspart Prot/Aspart(Nf) 7 units SQ BID 12/06/17 01/20/18 Unknown History [Novolog Mix 70/30] Active Meds: Active Medications Dextrose (D50w (25gm) Syringe) 50 ml IV PRN PRN PRN Reason: Hypoglycemia Enoxaparin Sodium (Lovenox) 40 mg SUB-Q QDAY ROSALINDA Pantoprazole Sodium 80 mg/ (Sodium Chloride) 100 mls @ 10 mls/hr IV DIRECT ROSALINDA Last Admin: 01/21/18 09:44 Dose: 8 mg/hr, 10 mls/hr Potassium Chloride/Dextrose/Sod Cl (D5w/0.45% Nacl/Kcl 20 Meq) 20 meq in 1,000 mls @ 125 mls/hr IV DIRECT ROSALINDA Last Admin: 01/21/18 04:21 Dose: 125 mls/hr Insulin Human Regular 100 (units/ Sodium Chloride) 100 mls @ 1 mls/hr IV TITR ROSALINDA; Protocol Last Titration: 01/21/18 08:57 Dose: 2 units/hr, 2 mls/hr Sodium Chloride (Nacl 0.9% 1000 Ml) 1,000 mls @ 150 mls/hr IV DIRECT ROSALINDA Insulin Glargine (Lantus) 20 units SUB-Q QHS ROSALINDA Insulin Human Isoph/Insulin Regular (Humulin 70/30) 7 unit SUB-Q BIDDIAB [facility] Lorazepam (Ativan) 1 mg IV Q4H PRN PRN Reason: Seizures Morphine Sulfate (Morphine) 2 mg IV ONCE ONE Stop: 01/21/18 11:01 Last Admin: 01/21/18 10:07 Dose: 2 mg Morphine Sulfate (Morphine) 2 mg IV Q4H PRN PRN Reason: Pain, Moderate (4-6) Ondansetron HCl (Zofran) 4 mg IV Q6HR PRN PRN Reason: Nausea And Vomiting Last Admin: 01/21/18 06:14 Dose: 4 mg Sodium Chloride (Sodium Chloride Flush Syringe 10 Ml) 10 ml IV BID [facility] Last Admin: 01/20/18 21:32 Dose: Not Given Sodium Chloride (Sodium Chloride Flush Syringe 10 Ml) 10 ml IV PRN PRN PRN Reason: LINE FLUSH Review of Systems Constitutional: no fever, no chills, no sweats Ears, nose, mouth and throat: no ear pain, no nose pain, no sinus pressure, no sinus pain Cardiovascular: syncope, high blood pressure, no chest pain, no orthopnea, no palpitations, no rapid/irregular heart beat, no edema, no lightheadedness, no shortness of breath, no dyspnea on exertion, no leg edema Respiratory: no cough, no shortness of breath, no dyspnea on exertion, no congestion, no wheezing, no pain on inspiration Gastrointestinal: abdominal pain, nausea, vomiting, no diarrhea, no constipation , no change in bowel habits Genitourinary Male: no dysuria, no hematuria, no flank pain, no discharge, no urinary frequency, no urinary hesitancy Musculoskeletal: no neck stiffness, no neck pain, no shooting arm pain, no arm numbness/tingling, no low back pain, no shooting leg pain, no leg numbness/ tingling Integumentary: no rash, no pruritis, no redness, no sores, no wounds Neurological: syncope, no head injury, no paralysis, no weakness, no parathesias , no numbness, no tingling Endocrine: no cold intolerance, no heat intolerance Hematologic/Lymphatic: no easy bruising, no easy bleeding Allergic/Immunologic: no urticaria, no wheezing Physical Examination Vital Signs Temp Pulse Resp BP Pulse Ox 98 F 108 H 18 132/77 99 01/20/18 08:40 01/20/18 08:40 01/20/18 08:40 01/20/18 08:40 01/20/18 08:40 General appearance: other (c/o abdominal pain) HEENT: Positive: PERRL Neck: Positive: neck supple, trachea midline Cardiac: Positive: Reg Rate and Rhythm, S1/S2 Lungs: Positive: clear to auscultation Neuro: Positive: Grossly Intact Abdomen: Positive: Soft. Negative: Tender Skin: Negative: Rash, Wound Musculoskeletal: No Pain Extremities: Absent: edema Results 01/21/18 Unknown 01/21/18 Unknown Cardiac Enzymes 01/21/18 Range/Units 03:47 CK-MB (CK-2) 2.3 (0.0-4.0) ng/mL Lipids 01/20/18 Range/Units 09:05 Triglycerides 99 (2-149) mg/dL Cholesterol 312 H (50-199) mg/dL HDL Cholesterol 156 H (40-59) mg/dL Cholesterol/HDL Ratio 2.00 % Comprehensive Metabolic Panel 01/20/18 01/20/18 01/20/18 Range/Units 10:20 12:05 16:15 Sodium 146 H D 149 H 143 (137-145) mmol/L Potassium 3.8 3.7 4.2 (3.6-5.0) mmol/L Chloride 99.3 103.5 101.6 (98-107) mmol/L Carbon Dioxide 22 20 L 21 L (22-30) mmol/L BUN 27 H 26 H 25 H (9-20) mg/dL Creatinine 1.3 1.2 1.2 (0.8-1.5) mg/dL Glucose 316 H 268 H 294 H (75-100) mg/dL Calcium 9.5 9.3 8.4 (8.4-10.2) mg/dL 10/17/18 10/18/18 Range/Units 20:02 03:47 Sodium 148 H 145 (137-145) mmol/L Potassium 3.9 3.8 (3.6-5.0) mmol/L Chloride 107.3 H 109.4 H (98-107) mmol/L Carbon Dioxide 23 24 (22-30) mmol/L BUN 27 H 21 H (9-20) mg/dL Creatinine 1.3 0.9 (0.8-1.5) mg/dL Glucose 202 H 165 H (75-100) mg/dL Calcium 8.8 8.3 L (8.4-10.2) mg/dL - Imaging and Cardiology Echo: pending, report reviewed (09/2016 showed EF 30-35%, mod reduced RV systolic function. ) EKG: pending EKG interpretations - Telemetry EKG Rhythm: Sinus Rhythm - EKG Sinus rhythms and dysrhythmias: sinus rhythm Assessment and Plan Resume home coreg. F/u echo. Interrogate PPM. Await GI recs. Consider neuro evaluation in setting of ? seizure overnight. The patient has been seen in conjunction with Dr. Cesar who agrees with the assessment and plan of care. - Patient Problems (1) Syncope Current Visit: Yes Status: Acute (2) Altered mental status Current Visit: Yes Status: Acute (3) Abdominal pain Current Visit: Yes Status: Acute (4) Nausea and vomiting Current Visit: Yes Status: Acute (5) Diabetes mellitus with hyperglycemia Current Visit: Yes Status: Acute (6) HTN (hypertension) Current Visit: Yes Status: Chronic (7) History of cardiomyopathy Current Visit: Yes Status: Chronic (8) Cardiac pacemaker in situ Current Visit: Yes Status: Chronic (9) Medical non-compliance Current Visit: Yes Status: Chronic
[2018-01-21 10:50] LABS: Basophils # (Auto) 0.1 K/mm3 (0.0-0.1); Basophils % (Auto) 1.3 % (0.0-1.8); Hematocrit 40.7 % (35.5-45.6); Hemoglobin 13.6 gm/dl (11.8-15.2); Lymphocytes % (Auto) 9.2 % (13.4-35.0); Mean Corpuscular HGB Conc 33 % (32-34); Mean Corpuscular Hemoglobin 30 pg (28-32); Mean Corpuscular Volume 90 fl (84-94); Monocytes # (Auto) 0.7 K/mm3 (0.0-0.8); Monocytes % (Auto) 7.1 % (0.0-7.3); Platelet Count 263 K/mm3 (140-440); Red Blood Count 4.53 M/mm3 (3.65-5.03); Red Cell Distribution Width 13.6 % (13.2-15.2)
--- NOTE | 2018-01-21 10:57 | Progress Note ---
Assessment and Plan DKA Leukocytosis Metabolic Acidosis Uncontrolled DM cardiomyopathy s/p PPM Abdominal pain with peritoneal irration Bladder Dis Hydronephrosistension Ostructive Uropathy (Abdominal pain, N&V likely related to Bladder distension) - place ortega catheter (clamp for 1-2 hours after each liter drained on initial insertion till slows down) - prn analgesia - transition off IV insulin - resume home 70/30 - continue D51/2 NS at 75 mls/hr till taking oral meals - SSI with accuchecks q 6 h - GI & VTE prophylaxis - flu & pneumovax per protocol - stop IV protonix (indication unclear) - protonix 40mg IV q12h - Flu and pneumovax addressed per protocol - follow CT abdiomen & pelvis (my review with main pathology bladder distension) The high probability of a clinically significant, sudden or life threatening deterioration of the [endocrine,Urogenital, GI] system(s) required my full and direct attention, intervention and personal management. The aggregate critical care time was [35] minutes. This time is in addition to time spent performing reported procedures but includes the following: [x] Data Review and interpretation [x] Patient assessment and monitoring of vital signs [x] Documentation [x] Medication orders and management Subjective Date of service: 01/21/18 Principal diagnosis: DKA; Severe Abdominal Pain; Intractable N&V; Severe Bladder Distension Interval history: Patient is seen today for: DKA; Severe Abdominal Pain; Intractable N&V; Severe Bladder Distension Seen and examined at bedside; 24hour events reviewed; nursing and respiratory care staff consulted; no adverse overnight events reported to me; still with severe abdominal and suprapubic pain; no gross hematuria; no fevers or chills; remains on IV insulin drip; still with intermittent N&V Objective Vital Signs - 12hr 01/20/18 01/20/18 01/20/18 23:00 23:11 23:18 Temperature Pulse Rate 101 H 94 H 94 H Respiratory 17 14 14 Rate Blood Pressure 84/40 84/40 92/44 O2 Sat by Pulse 98 95 97 Oximetry 01/20/18 01/20/18 01/20/18 23:21 23:22 23:30 Temperature Pulse Rate 94 H 93 H 91 H Respiratory 14 14 14 Rate Blood Pressure 92/44 92/44 99/50 O2 Sat by Pulse 96 97 Oximetry 01/20/18 01/20/18 01/20/18 23:33 23:35 23:36 Temperature Pulse Rate 94 H 92 H 93 H Respiratory 13 14 13 Rate Blood Pressure 99/50 99/50 99/50 O2 Sat by Pulse 97 96 97 Oximetry 01/20/18 01/20/18 01/20/18 23:37 23:39 23:41 Temperature Pulse Rate 93 H 92 H 91 H Respiratory 14 13 14 Rate Blood Pressure 99/50 99/50 99/50 O2 Sat by Pulse 97 96 97 Oximetry 01/20/18 01/20/18 01/20/18 23:43 23:45 23:46 Temperature 98.7 F Pulse Rate 91 H 90 Respiratory 14 13 Rate Blood Pressure 99/50 101/49 O2 Sat by Pulse 96 Oximetry 01/20/18 01/20/18 01/20/18 23:47 23:49 23:51 Temperature Pulse Rate 91 H 91 H 90 Respiratory 14 14 15 Rate Blood Pressure 101/49 101/49 101/49 O2 Sat by Pulse 96 97 95 Oximetry 01/20/18 01/20/18 01/20/18 23:53 23:55 23:57 Temperature Pulse Rate 90 89 89 Respiratory 13 13 13 Rate Blood Pressure 101/49 101/49 101/49 O2 Sat by Pulse 96 96 96 Oximetry 01/20/18 01/21/18 01/21/18 23:59 00:03 00:05 Temperature Pulse Rate 90 90 91 H Respiratory 13 12 13 Rate Blood Pressure 101/49 80/36 99/50 O2 Sat by Pulse 96 95 98 Oximetry 01/21/18 01/21/18 01/21/18 00:07 00:09 00:11 Temperature Pulse Rate 89 88 85 Respiratory 16 12 12 Rate Blood Pressure 99/50 99/50 99/50 O2 Sat by Pulse 96 96 97 Oximetry 01/21/18 01/21/18 01/21/18 00:13 00:15 00:17 Temperature Pulse Rate 87 88 89 Respiratory 11 L 13 12 Rate Blood Pressure 99/50 97/52 97/52 O2 Sat by Pulse 97 97 Oximetry 01/21/18 01/21/18 01/21/18 00:19 00:21 00:23 Temperature Pulse Rate 88 86 90 Respiratory 13 14 12 Rate Blood Pressure 97/52 97/52 97/52 O2 Sat by Pulse 97 96 97 Oximetry 01/21/1818 01/21/18 00:25 00:27 00:29 Temperature Pulse Rate 87 89 91 H Respiratory 13 16 17 Rate Blood Pressure 97/52 97/52 98/53 O2 Sat by Pulse 97 95 96 Oximetry 01/21/1818 01/21/18 00:30 00:31 00:33 Temperature Pulse Rate 92 H 92 H 92 H Respiratory 12 13 13 Rate Blood Pressure 98/53 98/53 98/53 O2 Sat by Pulse 96 97 96 Oximetry 01/21/18 01/21/18 01/21/18 00:35 00:37 00:39 Temperature Pulse Rate 89 91 H 91 H Respiratory 13 16 14 Rate Blood Pressure 98/53 98/53 98/53 O2 Sat by Pulse 97 97 97 Oximetry 01/21/18 01/21/18 01/21/18 00:41 00:43 00:45 Temperature Pulse Rate 91 H 92 H 94 H Respiratory 14 14 13 Rate Blood Pressure 98/53 98/53 99/57 O2 Sat by Pulse 97 97 95 Oximetry 01/21/18 01/21/18 01/21/18 00:47 00:49 00:51 Temperature Pulse Rate 87 87 87 Respiratory 11 L 13 14 Rate Blood Pressure 99/57 99/57 99/57 O2 Sat by Pulse 96 96 96 Oximetry 01/21/18 01/21/18 01/21/18 00:53 00:55 00:57 Temperature Pulse Rate 86 89 89 Respiratory 13 17 11 L Rate Blood Pressure 99/57 99/57 99/57 O2 Sat by Pulse 96 94 96 Oximetry 01/21/18 01/21/18 01/21/18 00:59 01:00 01:01 Temperature Pulse Rate 89 86 88 Respiratory 13 12 13 Rate Blood Pressure 97/53 97/53 97/53 O2 Sat by Pulse 95 96 96 Oximetry 01/21/18 01/21/18 01/21/18 01:03 01:05 01:07 Temperature Pulse Rate 86 92 H 89 Respiratory 11 L 14 12 Rate Blood Pressure 97/53 97/53 97/53 O2 Sat by Pulse 97 98 98 Oximetry 01/21/1818 01/21/18 01:08 01:09 01:11 Temperature Pulse Rate 90 89 88 Respiratory 12 12 13 Rate Blood Pressure 99/57 97/53 97/53 O2 Sat by Pulse 97 98 97 Oximetry 01/21/18 01/21/18 01/21/18 01:13 01:15 01:17 Temperature Pulse Rate 88 89 87 Respiratory 12 11 L 13 Rate Blood Pressure 97/53 104/58 104/58 O2 Sat by Pulse 98 96 97 Oximetry 01/21/18 01/21/18 01/21/18 01:19 01:21 01:23 Temperature Pulse Rate 88 88 88 Respiratory 12 12 12 Rate Blood Pressure 104/58 104/58 104/58 O2 Sat by Pulse 97 98 97 Oximetry 01/21/18 01/21/18 01/21/18 01:25 01:27 01:29 Temperature Pulse Rate 89 87 90 Respiratory 12 13 13 Rate Blood Pressure 104/58 104/58 99/55 O2 Sat by Pulse 97 98 97 Oximetry 01/21/18 01/21/18 01/21/18 01:30 01:31 01:33 Temperature Pulse Rate 87 87 89 Respiratory 12 12 13 Rate Blood Pressure 99/55 99/55 99/55 O2 Sat by Pulse 98 98 Oximetry 01/21/18 01/21/18 01/21/18 01:35 01:37 01:39 Temperature Pulse Rate 89 89 91 H Respiratory 11 L 13 12 Rate Blood Pressure 99/55 99/55 99/55 O2 Sat by Pulse 98 98 98 Oximetry 01/21/18 01/21/18 01/21/18 01:41 01:43 01:45 Temperature Pulse Rate 89 90 89 Respiratory 13 12 13 Rate Blood Pressure 99/55 99/55 99/55 O2 Sat by Pulse 98 99 Oximetry 01/21/18 01/21/18 01/21/18 01:47 01:49 01:51 Temperature Pulse Rate 90 87 91 H Respiratory 14 13 16 Rate Blood Pressure 99/55 99/55 99/55 O2 Sat by Pulse 97 97 96 Oximetry 01/21/18 01/21/18 01/21/18 01:53 01:55 01:57 Temperature Pulse Rate 92 H 86 86 Respiratory 11 L 11 L 12 Rate Blood Pressure 99/55 99/55 99/55 O2 Sat by Pulse 97 99 97 Oximetry 01/21/18 01/21/18 01/21/18 01:59 02:00 02:01 Temperature Pulse Rate 85 86 86 Respiratory 11 L 11 L 11 L Rate Blood Pressure 111/63 111/63 111/63 O2 Sat by Pulse 97 96 97 Oximetry 01/21/18 01/21/18 01/21/18 02:03 02:05 02:07 Temperature Pulse Rate 85 85 86 Respiratory 11 L 12 11 L Rate Blood Pressure 111/63 111/63 111/63 O2 Sat by Pulse 96 96 96 Oximetry 01/21/18 01/21/18 01/21/18 02:09 02:11 02:13 Temperature Pulse Rate 84 94 H 85 Respiratory 11 L 13 11 L Rate Blood Pressure 111/63 111/63 111/63 O2 Sat by Pulse 96 97 96 Oximetry 01/21/18 01/21/18 01/21/18 02:15 02:16 02:17 Temperature Pulse Rate 88 89 87 Respiratory 6 L 16 13 Rate Blood Pressure 111/63 101/62 101/62 O2 Sat by Pulse 93 96 93 Oximetry 01/21/18 01/21/18 01/21/18 02:19 02:21 02:23 Temperature Pulse Rate 91 H 86 87 Respiratory 12 12 13 Rate Blood Pressure 101/62 101/62 101/62 O2 Sat by Pulse 94 94 94 Oximetry 01/21/18 01/21/18 01/21/18 02:25 02:27 02:29 Temperature Pulse Rate 86 87 86 Respiratory 12 12 12 Rate Blood Pressure 101/62 101/62 101/62 O2 Sat by Pulse 94 94 94 Oximetry 01/21/18 01/21/18 01/21/18 02:31 02:33 02:35 Temperature Pulse Rate 87 85 88 Respiratory 17 12 14 Rate Blood Pressure 101/70 101/70 101/70 O2 Sat by Pulse 95 95 94 Oximetry 01/21/18 01/21/18 01/21/18 02:37 02:39 02:41 Temperature Pulse Rate 87 87 84 Respiratory 13 14 13 Rate Blood Pressure 101/70 101/70 101/70 O2 Sat by Pulse 94 94 97 Oximetry 01/21/18 01/21/18 01/21/18 02:43 02:45 02:47 Temperature Pulse Rate 87 86 88 Respiratory 15 15 12 Rate Blood Pressure 101/70 97/62 97/62 O2 Sat by Pulse 94 93 95 Oximetry 01/21/18 01/21/18 01/21/18 02:49 02:51 02:53 Temperature Pulse Rate 86 86 87 Respiratory 15 14 14 Rate Blood Pressure 97/62 97/62 97/62 O2 Sat by Pulse 95 95 94 Oximetry 01/21/18 01/21/18 01/21/18 02:55 02:57 02:59 Temperature Pulse Rate 85 86 86 Respiratory 13 12 13 Rate Blood Pressure 97/62 97/62 102/71 O2 Sat by Pulse 96 95 95 Oximetry 01/21/18 01/21/18 01/21/18 03:00 03:01 03:03 Temperature Pulse Rate 91 H 91 H 88 Respiratory 12 13 13 Rate Blood Pressure 102/71 102/71 102/71 O2 Sat by Pulse 94 96 94 Oximetry 01/21/18 01/21/18 01/21/18 03:05 03:07 03:09 Temperature Pulse Rate 86 85 87 Respiratory 12 12 13 Rate Blood Pressure 102/71 102/71 102/71 O2 Sat by Pulse 95 95 95 Oximetry 01/21/18 01/21/18 01/21/18 03:11 03:13 03:15 Temperature Pulse Rate 88 87 86 Respiratory 12 12 11 L Rate Blood Pressure 102/71 102/71 92/51 O2 Sat by Pulse 94 94 94 Oximetry 01/21/18 01/21/18 01/21/18 03:17 03:19 03:21 Temperature Pulse Rate 86 84 86 Respiratory 12 12 12 Rate Blood Pressure 92/51 92/51 92/51 O2 Sat by Pulse 96 96 96 Oximetry 01/21/18 01/21/18 01/21/18 03:23 03:25 03:27 Temperature Pulse Rate 85 85 86 Respiratory 13 12 13 Rate Blood Pressure 92/51 92/51 92/51 O2 Sat by Pulse 97 97 97 Oximetry 01/21/18 01/21/18 01/21/18 03:29 03:30 03:31 Temperature Pulse Rate 87 87 86 Respiratory 13 17 10 L Rate Blood Pressure 92/51 96/57 96/57 O2 Sat by Pulse 97 95 99 Oximetry 01/21/18 01/21/18 01/21/18 03:33 03:35 03:37 Temperature Pulse Rate 96 H 87 88 Respiratory 14 13 16 Rate Blood Pressure 96/57 96/57 96/57 O2 Sat by Pulse 97 99 99 Oximetry 01/21/18 01/21/18 01/21/18 03:39 03:41 03:43 Temperature Pulse Rate 87 83 83 Respiratory 12 12 12 Rate Blood Pressure 96/57 96/57 96/57 O2 Sat by Pulse 99 99 98 Oximetry 01/21/18 01/21/18 01/21/18 03:45 03:47 03:49 Temperature Pulse Rate 85 87 91 H Respiratory 11 L 17 16 Rate Blood Pressure 102/61 102/61 102/61 O2 Sat by Pulse 97 99 99 Oximetry 01/21/18 01/21/18 01/21/18 03:51 03:53 03:55 Temperature Pulse Rate 97 H 86 86 Respiratory 10 L 12 12 Rate Blood Pressure 102/61 102/61 102/61 O2 Sat by Pulse 99 99 98 Oximetry 01/21/18 01/21/18 01/21/18 03:57 03:59 04:00 Temperature 98.1 F Pulse Rate 81 80 Respiratory 12 12 Rate Blood Pressure 102/61 102/61 O2 Sat by Pulse 98 98 Oximetry 01/21/18 01/21/18 01/21/18 04:01 04:03 04:05 Temperature Pulse Rate 82 89 87 Respiratory 11 L 12 16 Rate Blood Pressure 119/65 119/65 119/65 O2 Sat by Pulse 96 100 98 Oximetry 01/21/18 01/21/18 01/21/18 04:07 04:09 04:11 Temperature Pulse Rate 81 78 76 Respiratory 13 10 L 15 Rate Blood Pressure 119/65 119/65 119/65 O2 Sat by Pulse 100 100 100 Oximetry 01/21/18 01/21/18 01/21/18 04:13 04:15 04:17 Temperature Pulse Rate 75 77 76 Respiratory 8 L 13 12 Rate Blood Pressure 119/65 137/80 137/80 O2 Sat by Pulse 100 100 100 Oximetry 01/21/18 01/21/18 01/21/18 04:19 04:21 04:23 Temperature Pulse Rate 80 80 75 Respiratory 10 L 9 L 10 L Rate Blood Pressure 137/80 137/80 137/80 O2 Sat by Pulse 100 99 100 Oximetry 01/21/18 01/21/18 01/21/18 04:25 04:27 04:29 Temperature Pulse Rate 82 79 77 Respiratory 12 10 L 12 Rate Blood Pressure 137/80 137/80 141/78 O2 Sat by Pulse 99 100 100 Oximetry 01/21/18 01/21/18 01/21/18 04:30 04:31 04:33 Temperature Pulse Rate 77 78 79 Respiratory 13 14 14 Rate Blood Pressure 141/78 141/78 141/78 O2 Sat by Pulse 98 99 100 Oximetry 01/21/18 01/21/18 01/21/18 04:35 04:37 04:39 Temperature Pulse Rate 79 78 80 Respiratory 13 12 14 Rate Blood Pressure 141/78 141/78 141/78 O2 Sat by Pulse 100 99 99 Oximetry 01/21/18 01/21/18 01/21/18 04:41 04:43 04:45 Temperature Pulse Rate 78 81 82 Respiratory 13 13 13 Rate Blood Pressure 141/78 141/78 140/83 O2 Sat by Pulse 100 100 98 Oximetry 01/21/18 01/21/18 01/21/18 04:47 04:49 04:51 Temperature Pulse Rate 83 80 79 Respiratory 12 12 12 Rate Blood Pressure 140/83 140/83 140/83 O2 Sat by Pulse 100 100 100 Oximetry 01/21/18 01/21/18 01/21/18 04:53 04:55 04:57 Temperature Pulse Rate 82 81 83 Respiratory 12 13 13 Rate Blood Pressure 140/83 140/83 140/83 O2 Sat by Pulse 100 99 99 Oximetry 01/21/18 01/21/18 01/21/18 04:59 05:00 05:01 Temperature Pulse Rate 83 85 85 Respiratory 14 14 13 Rate Blood Pressure 139/79 139/79 139/79 O2 Sat by Pulse 98 97 100 Oximetry 01/21/18 01/21/18 01/21/18 05:03 05:05 05:07 Temperature Pulse Rate 92 H 96 H 99 H Respiratory 25 H 21 21 Rate Blood Pressure 139/79 139/79 139/79 O2 Sat by Pulse 100 100 98 Oximetry 01/21/18 01/21/18 01/21/18 05:09 05:11 05:13 Temperature Pulse Rate 93 H 91 H 89 Respiratory 14 16 19 Rate Blood Pressure 139/79 139/79 139/79 O2 Sat by Pulse 100 100 95 Oximetry 01/21/18 01/21/18 01/21/18 05:15 05:17 05:19 Temperature Pulse Rate 95 H 88 91 H Respiratory 23 29 H 18 Rate Blood Pressure 139/84 139/84 139/84 O2 Sat by Pulse 96 99 99 Oximetry 01/21/18 01/21/18 01/21/18 05:21 05:23 05:25 Temperature Pulse Rate 83 87 108 H Respiratory 21 24 35 H Rate Blood Pressure 139/84 139/84 139/84 O2 Sat by Pulse 99 99 96 Oximetry 01/21/18 01/21/18 01/21/18 05:27 05:29 05:30 Temperature Pulse Rate 91 H 86 87 Respiratory 13 15 13 Rate Blood Pressure 139/84 132/78 132/78 O2 Sat by Pulse 92 95 91 Oximetry 01/21/1818 01/21/18 05:31 05:33 05:35 Temperature Pulse Rate 86 85 89 Respiratory 14 13 14 Rate Blood Pressure 132/78 132/78 132/78 O2 Sat by Pulse 95 95 96 Oximetry 01/21/18 01/21/18 01/21/18 05:37 05:39 05:41 Temperature Pulse Rate 86 87 90 Respiratory 15 15 12 Rate Blood Pressure 132/78 132/78 132/78 O2 Sat by Pulse 95 96 97 Oximetry 01/21/18 01/21/18 01/21/18 05:43 05:45 05:47 Temperature Pulse Rate 97 H 89 88 Respiratory 14 16 16 Rate Blood Pressure 132/78 125/63 125/63 O2 Sat by Pulse 97 97 95 Oximetry 01/21/18 01/21/18 01/21/18 05:49 05:51 05:53 Temperature Pulse Rate 84 87 88 Respiratory 13 14 14 Rate Blood Pressure 125/63 125/63 125/63 O2 Sat by Pulse 96 96 96 Oximetry 01/21/18 01/21/18 01/21/18 05:55 05:57 05:59 Temperature Pulse Rate 86 88 88 Respiratory 14 14 15 Rate Blood Pressure 125/63 125/63 121/73 O2 Sat by Pulse 96 97 97 Oximetry 01/21/18 01/21/18 01/21/18 06:00 06:01 06:25 Temperature Pulse Rate 87 88 100 H Respiratory 18 15 52 H Rate Blood Pressure 121/73 121/73 122/80 O2 Sat by Pulse 94 97 100 Oximetry 01/21/18 01/21/18 01/21/18 06:26 06:27 06:29 Temperature Pulse Rate 90 101 H 92 H Respiratory 52 H 30 H 19 Rate Blood Pressure 125/63 122/80 132/75 O2 Sat by Pulse 100 100 98 Oximetry 01/21/1818 01/21/18 06:30 06:31 06:33 Temperature Pulse Rate 87 85 83 Respiratory 23 18 26 H Rate Blood Pressure 138/78 138/78 138/78 O2 Sat by Pulse 98 98 100 Oximetry 01/21/18 01/21/18 01/21/18 06:35 06:36 06:37 Temperature Pulse Rate 102 H 100 H 90 Respiratory 25 H 33 H 28 H Rate Blood Pressure 138/78 138/78 122/80 O2 Sat by Pulse 97 97 96 Oximetry 01/21/18 01/21/18 01/21/18 06:39 06:40 06:41 Temperature Pulse Rate 89 84 83 Respiratory 35 H 37 H 17 Rate Blood Pressure 122/80 138/78 122/80 O2 Sat by Pulse 98 98 91 Oximetry 01/21/18 01/21/18 01/21/18 06:43 06:45 06:46 Temperature Pulse Rate 87 85 87 Respiratory 21 26 H 13 Rate Blood Pressure 122/80 137/76 138/78 O2 Sat by Pulse 94 92 96 Oximetry 01/21/18 01/21/18 01/21/18 06:47 06:48 06:49 Temperature Pulse Rate 83 86 85 Respiratory 15 13 16 Rate Blood Pressure 137/76 137/76 137/76 O2 Sat by Pulse 95 95 96 Oximetry 01/21/18 01/21/18 01/21/18 06:51 06:53 06:55 Temperature Pulse Rate 84 83 84 Respiratory 16 13 16 Rate Blood Pressure 137/76 137/76 137/76 O2 Sat by Pulse 96 96 96 Oximetry 01/21/18 01/21/18 01/21/18 06:57 06:59 07:00 Temperature Pulse Rate 86 84 85 Respiratory 17 15 13 Rate Blood Pressure 137/76 137/76 137/81 O2 Sat by Pulse 97 97 94 Oximetry 01/21/18 01/21/18 01/21/18 07:01 07:03 07:05 Temperature Pulse Rate 96 H 89 85 Respiratory 14 15 14 Rate Blood Pressure 137/81 137/81 137/81 O2 Sat by Pulse 97 97 98 Oximetry 01/21/18 01/21/18 01/21/18 07:07 07:09 07:11 Temperature Pulse Rate 86 82 88 Respiratory 13 17 26 H Rate Blood Pressure 137/81 137/76 137/76 O2 Sat by Pulse 99 99 100 Oximetry 01/21/18 01/21/18 01/21/18 07:13 07:15 07:17 Temperature Pulse Rate 97 H 93 H 89 Respiratory 13 22 23 Rate Blood Pressure 137/76 130/82 130/82 O2 Sat by Pulse 99 96 98 Oximetry 01/21/18 01/21/18 01/21/18 07:19 07:21 07:23 Temperature Pulse Rate 100 H 103 H 89 Respiratory 41 H 31 H 13 Rate Blood Pressure 130/82 130/82 130/82 O2 Sat by Pulse 99 99 99 Oximetry 01/21/18 01/21/18 01/21/18 07:25 07:27 07:29 Temperature Pulse Rate 92 H 96 H 105 H Respiratory 13 20 16 Rate Blood Pressure 130/82 130/82 147/87 O2 Sat by Pulse 99 100 95 Oximetry 01/21/18 01/21/18 01/21/18 07:30 07:31 07:33 Temperature Pulse Rate 103 H 90 83 Respiratory 9 L 31 H 13 Rate Blood Pressure 147/87 147/87 147/87 O2 Sat by Pulse 90 97 97 Oximetry 01/21/18 01/21/18 01/21/18 07:35 07:37 07:39 Temperature Pulse Rate 83 85 85 Respiratory 22 14 21 Rate Blood Pressure 147/87 147/87 147/87 O2 Sat by Pulse 99 98 97 Oximetry 01/21/18 01/21/18 01/21/18 07:41 07:43 07:45 Temperature Pulse Rate 88 87 85 Respiratory 14 11 L 16 Rate Blood Pressure 147/87 147/87 137/85 O2 Sat by Pulse 99 100 96 Oximetry 01/21/18 01/21/18 01/21/18 07:47 07:49 07:51 Temperature Pulse Rate 86 109 H 91 H Respiratory 22 21 18 Rate Blood Pressure 137/85 137/85 137/85 O2 Sat by Pulse 99 99 100 Oximetry 01/21/18 01/21/18 01/21/18 07:52 07:53 07:55 Temperature Pulse Rate 87 94 H 86 Respiratory 20 14 23 Rate Blood Pressure 137/76 137/85 137/85 O2 Sat by Pulse 99 100 100 Oximetry 01/21/18 01/21/18 01/21/18 07:57 07:59 08:01 Temperature Pulse Rate 88 86 85 Respiratory 17 14 26 H Rate Blood Pressure 137/85 137/85 137/85 O2 Sat by Pulse 100 100 99 Oximetry 01/21/18 01/21/1818 08:03 08:05 08:07 Temperature Pulse Rate 96 H 97 H 94 H Respiratory 20 12 19 Rate Blood Pressure 137/85 137/85 137/85 O2 Sat by Pulse 99 97 99 Oximetry 01/21/18 01/21/18 01/21/18 08:09 08:11 08:13 Temperature Pulse Rate 92 H 91 H 95 H Respiratory 21 33 H 21 Rate Blood Pressure 137/85 137/85 137/85 O2 Sat by Pulse 99 99 99 Oximetry 01/21/18 01/21/18 01/21/18 08:15 08:17 08:19 Temperature Pulse Rate 89 100 H 96 H Respiratory 18 24 Rate Blood Pressure 144/84 144/84 144/84 O2 Sat by Pulse 99 99 99 Oximetry Constitutional: appears uncomfortable, other (middle aged AAM, normocephalic and atraumatic) Eyes: non-icteric ENT: oropharynx moist Neck: supple, no lymphadenopathy, no JVD Effort: mildly labored Ascultation: Bilateral: clear Percussion: Bilateral: not dull Cardiovascular: regular rate and rhythm, other (No R/M) Gastrointestinal: hypoactive bowel sounds, soft, tender, other (No HSM; + suprapubic tenderness) Integumentary: normal Extremities: no cyanosis, no edema, pulses normal, no ischemia or petechiae Neurologic: normal mental status, non-focal exam, pupils equal and round, motor strength normal and Psychiatric: anxious CBC and BMP: 01/21/18 Unknown 01/21/18 Unknown Abnormal lab findings: Abnormal Labs 01/20/18 01/20/18 01/20/18 09:05 09:05 09:05 WBC Lymph % (Auto) Lymph # Seg Neutrophils % Seg Neuts % (Manual) Lymphocytes % (Manual) Seg Neutrophils # Seg Neutrophils # Man Lymphocytes # (Manual) Sodium Chloride 89.7 L Carbon Dioxide 18 L BUN 28 H Glucose 497 H POC Glucose Hemoglobin A1c 15.7 H Calcium Phosphorus Magnesium Total Creatine Kinase 186 H Total Protein 8.3 H Cholesterol LDL Cholesterol Direct HDL Cholesterol Lipase 10 L 01/20/18 01/20/18 01/20/18 09:05 09:09 09:23 WBC 12.7 H Lymph % (Auto) Lymph # Seg Neutrophils % Seg Neuts % (Manual) 92.0 H Lymphocytes % (Manual) 2.0 L Seg Neutrophils # Seg Neutrophils # Man 11.7 H Lymphocytes # (Manual) 0.3 L Sodium Chloride Carbon Dioxide BUN Glucose POC Glucose 394 H Hemoglobin A1c Calcium Phosphorus 4.80 H Magnesium 2.50 H Total Creatine Kinase Total Protein Cholesterol 312 H LDL Cholesterol Direct 176 H HDL Cholesterol 156 H Lipase 01/20/18 01/20/18 01/20/18 10:20 10:20 10:20 WBC Lymph % (Auto) Lymph # Seg Neutrophils % Seg Neuts % (Manual) Lymphocytes % (Manual) Seg Neutrophils # Seg Neutrophils # Man Lymphocytes # (Manual) Sodium 146 H D Chloride Carbon Dioxide BUN 27 H Glucose 316 H POC Glucose 331 H Hemoglobin A1c Calcium Phosphorus Magnesium 2.70 H Total Creatine Kinase Total Protein Cholesterol LDL Cholesterol Direct HDL Cholesterol Lipase 01/20/18 01/20/18 01/20/18 11:28 12:05 13:01 WBC Lymph % (Auto) Lymph # Seg Neutrophils % Seg Neuts % (Manual) Lymphocytes % (Manual) Seg Neutrophils # Seg Neutrophils # Man Lymphocytes # (Manual) Sodium 149 H Chloride Carbon Dioxide 20 L BUN 26 H Glucose 268 H POC Glucose 293 H 241 H Hemoglobin A1c Calcium Phosphorus Magnesium Total Creatine Kinase Total Protein Cholesterol LDL Cholesterol Direct HDL Cholesterol Lipase 01/20/18 01/20/18 01/20/18 14:36 16:15 16:15 WBC Lymph % (Auto) Lymph # Seg Neutrophils % Seg Neuts % (Manual) Lymphocytes % (Manual) Seg Neutrophils # Seg Neutrophils # Man Lymphocytes # (Manual) Sodium Chloride Carbon Dioxide 21 L BUN 25 H Glucose 294 H POC Glucose 277 H 267 H Hemoglobin A1c Calcium Phosphorus Magnesium Total Creatine Kinase Total Protein Cholesterol LDL Cholesterol Direct HDL Cholesterol Lipase 01/20/18 01/20/18 01/20/18 17:25 18:19 19:18 WBC Lymph % (Auto) Lymph # Seg Neutrophils % Seg Neuts % (Manual) Lymphocytes % (Manual) Seg Neutrophils # Seg Neutrophils # Man Lymphocytes # (Manual) Sodium Chloride Carbon Dioxide BUN Glucose POC Glucose 257 H 264 H 221 H Hemoglobin A1c Calcium Phosphorus Magnesium Total Creatine Kinase Total Protein Cholesterol LDL Cholesterol Direct HDL Cholesterol Lipase 01/20/18 01/20/18 01/20/18 20:02 20:02 21:00 WBC Lymph % (Auto) Lymph # Seg Neutrophils % Seg Neuts % (Manual) Lymphocytes % (Manual) Seg Neutrophils # Seg Neutrophils # Man Lymphocytes # (Manual) Sodium 148 H Chloride 107.3 H Carbon Dioxide BUN 27 H Glucose 202 H POC Glucose 190 H 189 H Hemoglobin A1c Calcium Phosphorus Magnesium Total Creatine Kinase Total Protein Cholesterol LDL Cholesterol Direct HDL Cholesterol Lipase 01/20/18 01/20/18 01/21/18 21:56 23:01 00:03 WBC Lymph % (Auto) Lymph # Seg Neutrophils % Seg Neuts % (Manual) Lymphocytes % (Manual) Seg Neutrophils # Seg Neutrophils # Man Lymphocytes # (Manual) Sodium Chloride Carbon Dioxide BUN Glucose POC Glucose 163 H 156 H 159 H Hemoglobin A1c Calcium Phosphorus Magnesium Total Creatine Kinase Total Protein Cholesterol LDL Cholesterol Direct HDL Cholesterol Lipase 01/21/18 01/21/18 01/21/18 01:06 01:57 03:04 WBC Lymph % (Auto) Lymph # Seg Neutrophils % Seg Neuts % (Manual) Lymphocytes % (Manual) Seg Neutrophils # Seg Neutrophils # Man Lymphocytes # (Manual) Sodium Chloride Carbon Dioxide BUN Glucose POC Glucose 149 H 147 H 169 H Hemoglobin A1c Calcium Phosphorus Magnesium Total Creatine Kinase Total Protein Cholesterol LDL Cholesterol Direct HDL Cholesterol Lipase 01/21/18 01/21/18 01/21/18 03:47 03:47 03:50 WBC Lymph % (Auto) Lymph # Seg Neutrophils % Seg Neuts % (Manual) Lymphocytes % (Manual) Seg Neutrophils # Seg Neutrophils # Man Lymphocytes # (Manual) Sodium Chloride 109.4 H Carbon Dioxide BUN 21 H Glucose 165 H POC Glucose 159 H Hemoglobin A1c Calcium 8.3 L Phosphorus Magnesium Total Creatine Kinase 226 H Total Protein Cholesterol LDL Cholesterol Direct HDL Cholesterol Lipase 01/21/18 01/21/18 01/21/18 05:05 06:09 06:35 WBC Lymph % (Auto) Lymph # Seg Neutrophils % Seg Neuts % (Manual) Lymphocytes % (Manual) Seg Neutrophils # Seg Neutrophils # Man Lymphocytes # (Manual) Sodium Chloride Carbon Dioxide BUN Glucose POC Glucose 166 H 172 H 181 H Hemoglobin A1c Calcium Phosphorus Magnesium Total Creatine Kinase Total Protein Cholesterol LDL Cholesterol Direct HDL Cholesterol Lipase 01/21/18 Unknown WBC Lymph % (Auto) 9.2 L Lymph # 1.0 L Seg Neutrophils % 82.4 H Seg Neuts % (Manual) Lymphocytes % (Manual) Seg Neutrophils # 8.5 H Seg Neutrophils # Man Lymphocytes # (Manual) Sodium Chloride Carbon Dioxide BUN Glucose POC Glucose Hemoglobin A1c Calcium Phosphorus Magnesium Total Creatine Kinase Total Protein Cholesterol LDL Cholesterol Direct HDL Cholesterol Lipase Chest x-ray: image reviewed
[2018-01-21] MEDS ORDERED: MORPHINE IV ONE (11:00)
[2018-01-21 11:40] LABS: BUN/Creatinine Ratio 16; Blood Urea Nitrogen 16 mg/dL (9-20); Calcium 8.7 mg/dL (8.4-10.2); Hemolysis Index 3
--- NOTE | 2018-01-21 12:09 | Cat Scan Report ---
CT ABDOMEN PELVIS WITH CONTRAST: HISTORY: Ischemic bowel. COMPARISON: 01/20/[address] abdomen pelvis. TECHNIQUE: Helical CT in 1.25mm intervals following IV contrast. Sagittal and coronal reconstructions. FINDINGS: Lung bases: Normal. Liver: Normal. Biliary system: Normal. Pancreas: Normal. Spleen: Normal. Kidneys/ureters/bladder: Bilateral hydronephrosis has resolved. The kidneys are unremarkable. Moderate distention of the bladder remains. Adrenal glands: Normal. Aorta: Normal. Intestines: Within normal limits given no oral contrast was administered. Appendix: Not confidently identified. Ascites: None. Adenopathy: None. Musculoskeletal: Normal. IMPRESSION: Unremarkable CT of the abdomen and pelvis. No evidence for ischemic bowel.
[2018-01-21] MEDS: HumaLOG SUB-Q SCH ×2 (12:33→18:01)
--- NOTE | 2018-01-21 13:20 | Gastroenterology Consultation ---
History of Present Illness - Reason for Consult Consult date: 01/21/18 intractable N/V Requesting physician: KRISTIAN SRINIVASAN - History of Present Illness Patient is a 52 y/o male with PMH of cardiomyopathy (s/p PPM), DM, peripheral neuropathy, and substance abuse (cocaine) who presented to ED with c/o abdominal pain with associated N/V x 3 days to which GI has been consulted along with recurrent syncope. Lu ISAEL called this am due to brief unresponsive episode (seizure?). Cardiology following. Neurology consult pending. This morning patient was resting in bed in mild distress with c/o continued abdominal pain with multiple episodes of N/V (clear non-bloody emesis) . Currently on insulin drip due to uncontrolled blood glucose. Admits to chills , sore throat from vomiting, and difficulty urinating (no voids this am per nursing). Denies CP, SOB, hematemesis, melena, dysphagia, diarrhea, constipation , or hematochezia. Last BM yesterday. No NSAID use. He is unsure if he has a hx of PUD or has ever had an EGD (noted to be a poor historian). Past History Past Medical History: diabetes, hypertension, other (cardiomyopathy) Past Surgical History: hernia repair, Other (PPM) Social history: other (substance abuse) Medications and Allergies Allergies Allergy/AdvReac Type Severity Reaction Status Date / Time No Known Allergies Allergy Verified 11/29/14 22:56 Home Medications Medication Instructions Recorded Confirmed Last Taken Type Insulin Aspart Prot/Aspart(Nf) 7 units SQ BID 12/06/17 01/20/18 Unknown History [Novolog Mix 70/30] Active Meds: Active Medications Carvedilol (Coreg) 3.125 mg PO BID ROSALINDA Dextrose (D50w (25gm) Syringe) 50 ml IV PRN PRN PRN Reason: Hypoglycemia Enoxaparin Sodium (Lovenox) 40 mg SUB-Q QDAY ROSALINDA Potassium Chloride/Dextrose/Sod Cl (D5w/0.45% Nacl/Kcl 20 Meq) 20 meq in 1,000 mls @ 75 mls/hr IV DIRECT ROSALINDA Last Admin: 01/21/18 12:34 Dose: 75 mls/hr Insulin Human Regular 100 (units/ Sodium Chloride) 100 mls @ 1 mls/hr IV TITR ROSALINDA; Protocol Last Titration: 01/21/18 12:05 Dose: 3 units/hr, 3 mls/hr Sodium Chloride (Nacl 0.9% 1000 Ml) 1,000 mls @ 150 mls/hr IV DIRECT ROSALINDA Insulin Human Isoph/Insulin Regular (Humulin 70/30) 7 unit SUB-Q BIDDIAB [facility] Insulin Human Lispro (Humalog) 0 unit SUB-Q Q6HR ROSALINDA; Protocol Last Admin: 01/21/18 12:33 Dose: 2 unit Lorazepam (Ativan) 1 mg IV Q4H PRN PRN Reason: Seizures Morphine Sulfate (Morphine) 2 mg IV Q4H PRN PRN Reason: Pain, Moderate (4-6) Ondansetron HCl (Zofran) 4 mg IV Q6HR PRN PRN Reason: Nausea And Vomiting Last Admin: 01/21/18 12:33 Dose: 4 mg Pantoprazole Sodium (Protonix) 40 mg IV QDAY [facility] Sodium Chloride (Sodium Chloride Flush Syringe 10 Ml) 10 ml IV BID [facility] Last Admin: 01/20/18 21:32 Dose: Not Given Sodium Chloride (Sodium Chloride Flush Syringe 10 Ml) 10 ml IV PRN PRN PRN Reason: LINE FLUSH Review of Systems - Review of Systems All systems: negative Gastrointestinal: abdominal pain, nausea, vomiting Male Genitourinary: other (difficulty urinating) Exam - Constitutional Vital Signs: Temp Pulse Resp BP Pulse Ox 98.1 F 85 24 152/86 100 01/21/18 04:00 01/21/18 11:11 01/21/18 08:17 01/21/18 11:11 01/21/18 11:11 General appearance: mild distress - Respiratory Respiratory: bilateral: CTA - Cardiovascular Rhythm: regular Heart Sounds: Present: S1 & S2 - Gastrointestinal General gastrointestinal: Present: soft, tender (generalized but mainly suprapubic), normal bowel sounds - Neurologic Neurological: alert and oriented x3 - Labs CBC & Chem 7: 01/21/18 Unknown 01/21/18 Unknown Lab Results: Laboratory Results - last 24 hr 01/20/18 01/20/18 01/20/18 12:05 13:01 14:36 WBC RBC Hgb Hct MCV MCH MCHC RDW Plt Count Lymph % (Auto) [place] % (Auto) Eos % (Auto) Baso % (Auto) Lymph # [place] # Eos # Baso # Seg Neutrophils % Seg Neutrophils # Sodium 149 H Potassium 3.7 Chloride 103.5 Carbon Dioxide 20 L Anion Gap 29 BUN 26 H Creatinine 1.2 Estimated GFR > 60 BUN/Creatinine Ratio 22 Glucose 268 H POC Glucose 241 H 277 H Lactic Acid Calcium 9.3 Total Creatine Kinase CK-MB (CK-2) CK-MB (CK-2) Rel Index Troponin T 01/20/18 01/20/18 01/20/18 16:15 16:15 17:25 WBC RBC Hgb Hct MCV MCH MCHC RDW Plt Count Lymph % (Auto) [place] % (Auto) Eos % (Auto) Baso % (Auto) Lymph # [place] # Eos # Baso # Seg Neutrophils % Seg Neutrophils # Sodium 143 Potassium 4.2 Chloride 101.6 Carbon Dioxide 21 L Anion Gap 25 BUN 25 H Creatinine 1.2 Estimated GFR > 60 BUN/Creatinine Ratio 21 Glucose 294 H POC Glucose 267 H 257 H Lactic Acid Calcium 8.4 Total Creatine Kinase CK-MB (CK-2) CK-MB (CK-2) Rel Index Troponin T 01/20/18 01/20/18 01/20/18 18:19 19:18 20:02 WBC RBC Hgb Hct MCV MCH MCHC RDW Plt Count Lymph % (Auto) [place] % (Auto) Eos % (Auto) Baso % (Auto) Lymph # [place] # Eos # Baso # Seg Neutrophils % Seg Neutrophils # Sodium 148 H Potassium 3.9 Chloride 107.3 H Carbon Dioxide 23 Anion Gap 22 BUN 27 H Creatinine 1.3 Estimated GFR > 60 BUN/Creatinine Ratio 21 Glucose 202 H POC Glucose 264 H 221 H Lactic Acid Calcium 8.8 Total Creatine Kinase CK-MB (CK-2) CK-MB (CK-2) Rel Index Troponin T 01/20/18 01/20/18 01/20/18 20:02 21:00 21:56 WBC RBC Hgb Hct MCV MCH MCHC RDW Plt Count Lymph % (Auto) [place] % (Auto) Eos % (Auto) Baso % (Auto) Lymph # [place] # Eos # Baso # Seg Neutrophils % Seg Neutrophils # Sodium Potassium Chloride Carbon Dioxide Anion Gap BUN Creatinine Estimated GFR BUN/Creatinine Ratio Glucose POC Glucose 190 H 189 H 163 H Lactic Acid Calcium Total Creatine Kinase CK-MB (CK-2) CK-MB (CK-2) Rel Index Troponin T 01/20/18 01/21/18 01/21/18 23:01 00:03 01:06 WBC RBC Hgb Hct MCV MCH MCHC RDW Plt Count Lymph % (Auto) [place] % (Auto) Eos % (Auto) Baso % (Auto) Lymph # [place] # Eos # Baso # Seg Neutrophils % Seg Neutrophils # Sodium Potassium Chloride Carbon Dioxide Anion Gap BUN Creatinine Estimated GFR BUN/Creatinine Ratio Glucose POC Glucose 156 H 159 H 149 H Lactic Acid Calcium Total Creatine Kinase CK-MB (CK-2) CK-MB (CK-2) Rel Index Troponin T 01/21/18 01/21/18 01/21/18 01:57 03:04 03:47 WBC RBC Hgb Hct MCV MCH MCHC RDW Plt Count Lymph % (Auto) [place] % (Auto) Eos % (Auto) Baso % (Auto) Lymph # [place] # Eos # Baso # Seg Neutrophils % Seg Neutrophils # Sodium 145 Potassium 3.8 Chloride 109.4 H Carbon Dioxide 24 Anion Gap 15 BUN 21 H Creatinine 0.9 Estimated GFR > 60 BUN/Creatinine Ratio 23 Glucose 165 H POC Glucose 147 H 169 H Lactic Acid Calcium 8.3 L Total Creatine Kinase CK-MB (CK-2) CK-MB (CK-2) Rel Index Troponin T 01/21/18 01/21/18 01/21/18 03:47 03:50 05:05 WBC RBC Hgb Hct MCV MCH MCHC RDW Plt Count Lymph % (Auto) [place] % (Auto) Eos % (Auto) Baso % (Auto) Lymph # [place] # Eos # Baso # Seg Neutrophils % Seg Neutrophils # Sodium Potassium Chloride Carbon Dioxide Anion Gap BUN Creatinine Estimated GFR BUN/Creatinine Ratio Glucose POC Glucose 159 H 166 H Lactic Acid Calcium Total Creatine Kinase 226 H CK-MB (CK-2) 2.3 CK-MB (CK-2) Rel Index 1.0 Troponin T < 0.010 01/21/18 01/21/18 01/21/18 06:09 06:35 07:43 WBC RBC Hgb Hct MCV MCH MCHC RDW Plt Count Lymph % (Auto) [place] % (Auto) Eos % (Auto) Baso % (Auto) Lymph # [place] # Eos # Baso # Seg Neutrophils % Seg Neutrophils # Sodium Potassium Chloride Carbon Dioxide Anion Gap BUN Creatinine Estimated GFR BUN/Creatinine Ratio Glucose POC Glucose 172 H 181 H 182 H Lactic Acid Calcium Total Creatine Kinase CK-MB (CK-2) CK-MB (CK-2) Rel Index Troponin T 01/21/18 01/21/18 01/21/18 08:55 10:15 10:55 WBC RBC Hgb Hct MCV MCH MCHC RDW Plt Count Lymph % (Auto) [place] % (Auto) Eos % (Auto) Baso % (Auto) Lymph # [place] # Eos # Baso # Seg Neutrophils % Seg Neutrophils # Sodium Potassium Chloride Carbon Dioxide Anion Gap BUN Creatinine Estimated GFR BUN/Creatinine Ratio Glucose POC Glucose 137 H 166 H 176 H Lactic Acid Calcium Total Creatine Kinase CK-MB (CK-2) CK-MB (CK-2) Rel Index Troponin T 01/21/18 01/21/18 01/21/18 12:24 Unknown Unknown WBC 10.3 RBC 4.53 Hgb 13.6 Hct 40.7 MCV 90 MCH 30 MCHC 33 RDW 13.6 Plt Count 263 Lymph % (Auto) 9.2 L [place] % (Auto) 7.1 Eos % (Auto) 0.0 Baso % (Auto) 1.3 Lymph # 1.0 L [place] # 0.7 Eos # 0.0 Baso # 0.1 Seg Neutrophils % 82.4 H Seg Neutrophils # 8.5 H Sodium 143 Potassium 3.4 L Chloride 105.9 Carbon Dioxide 20 L Anion Gap 21 BUN 16 Creatinine 1.0 Estimated GFR > 60 BUN/Creatinine Ratio 16 Glucose 161 H POC Glucose 166 H Lactic Acid Calcium 8.7 Total Creatine Kinase CK-MB (CK-2) CK-MB (CK-2) Rel Index Troponin T 01/21/18 Unknown WBC RBC Hgb Hct MCV MCH MCHC RDW Plt Count Lymph % (Auto) [place] % (Auto) Eos % (Auto) Baso % (Auto) Lymph # [place] # Eos # Baso # Seg Neutrophils % Seg Neutrophils # Sodium Potassium Chloride Carbon Dioxide Anion Gap BUN Creatinine Estimated GFR BUN/Creatinine Ratio Glucose POC Glucose Lactic Acid 1.50 Calcium Total Creatine Kinase CK-MB (CK-2) CK-MB (CK-2) Rel Index Troponin T Assessment and Plan 1.intractable N/V 2.abd pain 3.uncontrolled DM 4.cardiomyopathy (s/p PPM) 5.syncope (seizure?)-cardiology following -WBC 10.3-trending down -H/H, LFTs, and lipase-WNL -abd CT showed distended bladder with minimal bilateral hydronephrosis -etiology-likely 2/2 urinary retention (uncontrolled DM may also be contributing ) -urology consult pending -no plans for EGD at this time -optimize blood glucose -limit narcotics -continue PPI, antiemetics, and supportive care -will follow
--- NOTE | 2018-01-21 13:33 | Progress Note ---
Subjective Date of service: 01/21/18 Principal diagnosis: DKA; Severe Abdominal Pain; Intractable N&V; Severe Bladder Distension Interval history: neurogenic bladder and seizure poor hx [facility] EEG records being reviewed Objective - Vital Sign Vital Signs - 12hr 01/21/18 01/21/18 01/21/18 01:33 01:35 01:37 Temperature Pulse Rate 89 89 89 Respiratory 13 11 L 13 Rate Blood Pressure 99/55 99/55 99/55 O2 Sat by Pulse 98 98 98 Oximetry 01/21/18 01/21/18 01/21/18 01:39 01:41 01:43 Temperature Pulse Rate 91 H 89 90 Respiratory 12 13 12 Rate Blood Pressure 99/55 99/55 99/55 O2 Sat by Pulse 98 98 99 Oximetry 01/21/18 01/21/18 01/21/18 01:45 01:47 01:49 Temperature Pulse Rate 89 90 87 Respiratory 13 14 13 Rate Blood Pressure 99/55 99/55 99/55 O2 Sat by Pulse 97 97 Oximetry 01/21/18 01/21/18 01/21/18 01:51 01:53 01:55 Temperature Pulse Rate 91 H 92 H 86 Respiratory 16 11 L 11 L Rate Blood Pressure 99/55 99/55 99/55 O2 Sat by Pulse 96 97 99 Oximetry 01/21/18 01/21/18 01/21/18 01:57 01:59 02:00 Temperature Pulse Rate 86 85 86 Respiratory 12 11 L 11 L Rate Blood Pressure 99/55 111/63 111/63 O2 Sat by Pulse 97 97 96 Oximetry 01/21/18 01/21/18 01/21/18 02:01 02:03 02:05 Temperature Pulse Rate 86 85 85 Respiratory 11 L 11 L 12 Rate Blood Pressure 111/63 111/63 111/63 O2 Sat by Pulse 97 96 96 Oximetry 01/21/18 01/21/18 01/21/18 02:07 02:09 02:11 Temperature Pulse Rate 86 84 94 H Respiratory 11 L 11 L 13 Rate Blood Pressure 111/63 111/63 111/63 O2 Sat by Pulse 96 96 97 Oximetry 01/21/18 01/21/18 01/21/18 02:13 02:15 02:16 Temperature Pulse Rate 85 88 89 Respiratory 11 L 6 L 16 Rate Blood Pressure 111/63 111/63 101/62 O2 Sat by Pulse 96 93 96 Oximetry 01/21/18 01/21/18 01/21/18 02:17 02:19 02:21 Temperature Pulse Rate 87 91 H 86 Respiratory 13 12 12 Rate Blood Pressure 101/62 101/62 101/62 O2 Sat by Pulse 93 94 94 Oximetry 01/21/18 01/21/18 01/21/18 02:23 02:25 02:27 Temperature Pulse Rate 87 86 87 Respiratory 13 12 12 Rate Blood Pressure 101/62 101/62 101/62 O2 Sat by Pulse 94 94 94 Oximetry 01/21/18 01/21/18 01/21/18 02:29 02:31 02:33 Temperature Pulse Rate 86 87 85 Respiratory 12 17 12 Rate Blood Pressure 101/62 101/70 101/70 O2 Sat by Pulse 94 95 95 Oximetry 01/21/18 01/21/18 01/21/18 02:35 02:37 02:39 Temperature Pulse Rate 88 87 87 Respiratory 14 13 14 Rate Blood Pressure 101/70 101/70 101/70 O2 Sat by Pulse 94 94 94 Oximetry 01/21/18 01/21/18 01/21/18 02:41 02:43 02:45 Temperature Pulse Rate 84 87 86 Respiratory 13 15 15 Rate Blood Pressure 101/70 101/70 97/62 O2 Sat by Pulse 97 94 93 Oximetry 01/21/18 01/21/18 01/21/18 02:47 02:49 02:51 Temperature Pulse Rate 88 86 86 Respiratory 12 15 14 Rate Blood Pressure 97/62 97/62 97/62 O2 Sat by Pulse 95 95 95 Oximetry 01/21/18 01/21/18 01/21/18 02:53 02:55 02:57 Temperature Pulse Rate 87 85 86 Respiratory 14 13 12 Rate Blood Pressure 97/62 97/62 97/62 O2 Sat by Pulse 94 96 95 Oximetry 01/21/18 01/21/18 01/21/18 02:59 03:00 03:01 Temperature Pulse Rate 86 91 H 91 H Respiratory 13 12 13 Rate Blood Pressure 102/71 102/71 102/71 O2 Sat by Pulse 95 94 96 Oximetry 01/21/18 01/21/18 01/21/18 03:03 03:05 03:07 Temperature Pulse Rate 88 86 85 Respiratory 13 12 12 Rate Blood Pressure 102/71 102/71 102/71 O2 Sat by Pulse 94 95 95 Oximetry 01/21/18 01/21/18 01/21/18 03:09 03:11 03:13 Temperature Pulse Rate 87 88 87 Respiratory 13 12 12 Rate Blood Pressure 102/71 102/71 102/71 O2 Sat by Pulse 95 94 94 Oximetry 01/21/18 01/21/18 01/21/18 03:15 03:17 03:19 Temperature Pulse Rate 86 86 84 Respiratory 11 L 12 12 Rate Blood Pressure 92/51 92/51 92/51 O2 Sat by Pulse 94 96 96 Oximetry 01/21/18 01/21/18 01/21/18 03:21 03:23 03:25 Temperature Pulse Rate 86 85 85 Respiratory 12 13 12 Rate Blood Pressure 92/51 92/51 92/51 O2 Sat by Pulse 96 97 97 Oximetry 01/21/18 01/21/18 01/21/18 03:27 03:29 03:30 Temperature Pulse Rate 86 87 87 Respiratory 13 13 17 Rate Blood Pressure 92/51 92/51 96/57 O2 Sat by Pulse 97 97 95 Oximetry 01/21/18 01/21/18 01/21/18 03:31 03:33 03:35 Temperature Pulse Rate 86 96 H 87 Respiratory 10 L 14 13 Rate Blood Pressure 96/57 96/57 96/57 O2 Sat by Pulse 99 97 99 Oximetry 01/21/18 01/21/18 01/21/18 03:37 03:39 03:41 Temperature Pulse Rate 88 87 83 Respiratory 16 12 12 Rate Blood Pressure 96/57 96/57 96/57 O2 Sat by Pulse 99 99 99 Oximetry 01/21/18 01/21/18 01/21/18 03:43 03:45 03:47 Temperature Pulse Rate 83 85 87 Respiratory 12 11 L 17 Rate Blood Pressure 96/57 102/61 102/61 O2 Sat by Pulse 98 97 99 Oximetry 01/21/18 01/21/18 01/21/18 03:49 03:51 03:53 Temperature Pulse Rate 91 H 97 H 86 Respiratory 16 10 L 12 Rate Blood Pressure 102/61 102/61 102/61 O2 Sat by Pulse 99 99 99 Oximetry 01/21/18 01/21/18 01/21/18 03:55 03:57 03:59 Temperature Pulse Rate 86 81 80 Respiratory 12 12 12 Rate Blood Pressure 102/61 102/61 102/61 O2 Sat by Pulse 98 98 98 Oximetry 01/21/18 01/21/18 01/21/18 04:00 04:01 04:03 Temperature 98.1 F Pulse Rate 82 89 Respiratory 11 L 12 Rate Blood Pressure 119/65 119/65 O2 Sat by Pulse 96 100 Oximetry 01/21/18 01/21/18 01/21/18 04:05 04:07 04:09 Temperature Pulse Rate 87 81 78 Respiratory 16 13 10 L Rate Blood Pressure 119/65 119/65 119/65 O2 Sat by Pulse 98 100 100 Oximetry 01/21/18 01/21/18 01/21/18 04:11 04:13 04:15 Temperature Pulse Rate 76 75 77 Respiratory 15 8 L 13 Rate Blood Pressure 119/65 119/65 137/80 O2 Sat by Pulse 100 100 100 Oximetry 01/21/18 01/21/18 01/21/18 04:17 04:19 04:21 Temperature Pulse Rate 76 80 80 Respiratory 12 10 L 9 L Rate Blood Pressure 137/80 137/80 137/80 O2 Sat by Pulse 100 100 99 Oximetry 01/21/18 01/21/18 01/21/18 04:23 04:25 04:27 Temperature Pulse Rate 75 82 79 Respiratory 10 L 12 10 L Rate Blood Pressure 137/80 137/80 137/80 O2 Sat by Pulse 100 99 100 Oximetry 01/21/18 01/21/18 01/21/18 04:29 04:30 04:31 Temperature Pulse Rate 77 77 78 Respiratory 12 13 14 Rate Blood Pressure 141/78 141/78 141/78 O2 Sat by Pulse 100 98 99 Oximetry 01/21/18 01/21/18 01/21/18 04:33 04:35 04:37 Temperature Pulse Rate 79 79 78 Respiratory 14 13 12 Rate Blood Pressure 141/78 141/78 141/78 O2 Sat by Pulse 100 100 99 Oximetry 01/21/18 01/21/18 01/21/18 04:39 04:41 04:43 Temperature Pulse Rate 80 78 81 Respiratory 14 13 13 Rate Blood Pressure 141/78 141/78 141/78 O2 Sat by Pulse 99 100 100 Oximetry 01/21/18 01/21/18 01/21/18 04:45 04:47 04:49 Temperature Pulse Rate 82 83 80 Respiratory 13 12 12 Rate Blood Pressure 140/83 140/83 140/83 O2 Sat by Pulse 98 100 100 Oximetry 01/21/18 01/21/18 01/21/18 04:51 04:53 04:55 Temperature Pulse Rate 79 82 81 Respiratory 12 12 13 Rate Blood Pressure 140/83 140/83 140/83 O2 Sat by Pulse 100 100 99 Oximetry 01/21/18 01/21/18 01/21/18 04:57 04:59 05:00 Temperature Pulse Rate 83 83 85 Respiratory 13 14 14 Rate Blood Pressure 140/83 139/79 139/79 O2 Sat by Pulse 99 98 97 Oximetry 01/21/18 01/21/18 01/21/18 05:01 05:03 05:05 Temperature Pulse Rate 85 92 H 96 H Respiratory 13 25 H 21 Rate Blood Pressure 139/79 139/79 139/79 O2 Sat by Pulse 100 100 100 Oximetry 01/21/18 01/21/18 01/21/18 05:07 05:09 05:11 Temperature Pulse Rate 99 H 93 H 91 H Respiratory 21 14 16 Rate Blood Pressure 139/79 139/79 139/79 O2 Sat by Pulse 98 100 100 Oximetry 01/21/18 01/21/18 01/21/18 05:13 05:15 05:17 Temperature Pulse Rate 89 95 H 88 Respiratory 19 23 29 H Rate Blood Pressure 139/79 139/84 139/84 O2 Sat by Pulse 95 96 99 Oximetry 01/21/18 01/21/18 01/21/18 05:19 05:21 05:23 Temperature Pulse Rate 91 H 83 87 Respiratory 18 21 24 Rate Blood Pressure 139/84 139/84 139/84 O2 Sat by Pulse 99 99 99 Oximetry 01/21/18 01/21/18 01/21/18 05:25 05:27 05:29 Temperature Pulse Rate 108 H 91 H 86 Respiratory 35 H 13 15 Rate Blood Pressure 139/84 139/84 132/78 O2 Sat by Pulse 96 92 95 Oximetry 01/21/18 01/21/18 01/21/18 05:30 05:31 05:33 Temperature Pulse Rate 87 86 85 Respiratory 13 14 13 Rate Blood Pressure 132/78 132/78 132/78 O2 Sat by Pulse 91 95 95 Oximetry 01/21/18 01/21/18 01/21/18 05:35 05:37 05:39 Temperature Pulse Rate 89 86 87 Respiratory 14 15 15 Rate Blood Pressure 132/78 132/78 132/78 O2 Sat by Pulse 96 95 96 Oximetry 01/21/18 01/21/18 01/21/18 05:41 05:43 05:45 Temperature Pulse Rate 90 97 H 89 Respiratory 12 14 16 Rate Blood Pressure 132/78 132/78 125/63 O2 Sat by Pulse 97 97 97 Oximetry 01/21/18 01/21/18 01/21/18 05:47 05:49 05:51 Temperature Pulse Rate 88 84 87 Respiratory 16 13 14 Rate Blood Pressure 125/63 125/63 125/63 O2 Sat by Pulse 95 96 96 Oximetry 01/21/18 01/21/18 01/21/18 05:53 05:55 05:57 Temperature Pulse Rate 88 86 88 Respiratory 14 14 14 Rate Blood Pressure 125/63 125/63 125/63 O2 Sat by Pulse 96 96 97 Oximetry 01/21/18 01/21/18 01/21/18 05:59 06:00 06:01 Temperature Pulse Rate 88 87 88 Respiratory 15 18 15 Rate Blood Pressure 121/73 121/73 121/73 O2 Sat by Pulse 97 94 97 Oximetry 01/21/18 01/21/18 01/21/18 06:25 06:26 06:27 Temperature Pulse Rate 100 H 90 101 H Respiratory 52 H 52 H 30 H Rate Blood Pressure 122/80 125/63 122/80 O2 Sat by Pulse 100 100 100 Oximetry 01/21/18 01/21/18 01/21/18 06:29 06:30 06:31 Temperature Pulse Rate 92 H 87 85 Respiratory 19 23 18 Rate Blood Pressure 132/75 138/78 138/78 O2 Sat by Pulse 98 98 98 Oximetry 01/21/18 01/21/18 01/21/18 06:33 06:35 06:36 Temperature Pulse Rate 83 102 H 100 H Respiratory 26 H 25 H 33 H Rate Blood Pressure 138/78 138/78 138/78 O2 Sat by Pulse 100 97 97 Oximetry 01/21/18 01/21/18 01/21/18 06:37 06:39 06:40 Temperature Pulse Rate 90 89 84 Respiratory 28 H 35 H 37 H Rate Blood Pressure 122/80 122/80 138/78 O2 Sat by Pulse 96 98 98 Oximetry 01/21/18 01/21/18 01/21/18 06:41 06:43 06:45 Temperature Pulse Rate 83 87 85 Respiratory 17 21 26 H Rate Blood Pressure 122/80 122/80 137/76 O2 Sat by Pulse 91 94 92 Oximetry 01/21/18 01/21/18 01/21/18 06:46 06:47 06:48 Temperature Pulse Rate 87 83 86 Respiratory 13 15 13 Rate Blood Pressure 138/78 137/76 137/76 O2 Sat by Pulse 96 95 95 Oximetry 01/21/18 01/21/18 01/21/18 06:49 06:51 06:53 Temperature Pulse Rate 85 84 83 Respiratory 16 16 13 Rate Blood Pressure 137/76 137/76 137/76 O2 Sat by Pulse 96 96 96 Oximetry 01/21/18 01/21/18 01/21/18 06:55 06:57 06:59 Temperature Pulse Rate 84 86 84 Respiratory 16 17 15 Rate Blood Pressure 137/76 137/76 137/76 O2 Sat by Pulse 96 97 97 Oximetry 01/21/18 01/21/18 01/21/18 07:00 07:01 07:03 Temperature Pulse Rate 85 96 H 89 Respiratory 13 14 15 Rate Blood Pressure 137/81 137/81 137/81 O2 Sat by Pulse 94 97 97 Oximetry 01/21/18 01/21/18 01/21/18 07:05 07:07 07:09 Temperature Pulse Rate 85 86 82 Respiratory 14 13 17 Rate Blood Pressure 137/81 137/81 137/76 O2 Sat by Pulse 98 99 99 Oximetry 01/21/18 01/21/18 01/21/18 07:11 07:13 07:15 Temperature Pulse Rate 88 97 H 93 H Respiratory 26 H 13 22 Rate Blood Pressure 137/76 137/76 130/82 O2 Sat by Pulse 100 99 96 Oximetry 01/21/18 01/21/18 01/21/18 07:17 07:19 07:21 Temperature Pulse Rate 89 100 H 103 H Respiratory 23 41 H 31 H Rate Blood Pressure 130/82 130/82 130/82 O2 Sat by Pulse 98 99 99 Oximetry 01/21/18 01/21/18 01/21/18 07:23 07:25 07:27 Temperature Pulse Rate 89 92 H 96 H Respiratory 13 13 20 Rate Blood Pressure 130/82 130/82 130/82 O2 Sat by Pulse 99 99 100 Oximetry 01/21/18 01/21/18 01/21/18 07:29 07:30 07:31 Temperature Pulse Rate 105 H 103 H 90 Respiratory 16 9 L 31 H Rate Blood Pressure 147/87 147/87 147/87 O2 Sat by Pulse 95 90 97 Oximetry 01/21/18 01/21/18 01/21/18 07:33 07:35 07:37 Temperature Pulse Rate 83 83 85 Respiratory 13 22 14 Rate Blood Pressure 147/87 147/87 147/87 O2 Sat by Pulse 97 99 98 Oximetry 01/21/18 01/21/18 01/21/18 07:39 07:41 07:43 Temperature Pulse Rate 85 88 87 Respiratory 21 14 11 L Rate Blood Pressure 147/87 147/87 147/87 O2 Sat by Pulse 97 99 100 Oximetry 01/21/18 01/21/18 01/21/18 07:45 07:47 07:49 Temperature Pulse Rate 85 86 109 H Respiratory 16 22 21 Rate Blood Pressure 137/85 137/85 137/85 O2 Sat by Pulse 96 99 99 Oximetry 01/21/18 01/21/18 01/21/18 07:51 07:52 07:53 Temperature Pulse Rate 91 H 87 94 H Respiratory 18 20 14 Rate Blood Pressure 137/85 137/76 137/85 O2 Sat by Pulse 100 99 100 Oximetry 01/21/18 01/21/18 01/21/18 07:55 07:57 07:59 Temperature Pulse Rate 86 88 86 Respiratory 23 17 14 Rate Blood Pressure 137/85 137/85 137/85 O2 Sat by Pulse 100 100 100 Oximetry 01/21/18 01/21/18 01/21/18 08:01 08:03 08:05 Temperature Pulse Rate 85 96 H 97 H Respiratory 26 H 20 12 Rate Blood Pressure 137/85 137/85 137/85 O2 Sat by Pulse 99 99 97 Oximetry 01/21/18 01/21/18 01/21/18 08:07 08:09 08:11 Temperature Pulse Rate 94 H 92 H 91 H Respiratory 19 21 33 H Rate Blood Pressure 137/85 137/85 137/85 O2 Sat by Pulse 99 99 99 Oximetry 01/21/18 01/21/18 01/21/18 08:13 08:15 08:17 Temperature Pulse Rate 95 H 89 100 H Respiratory 21 18 24 Rate Blood Pressure 137/85 144/84 144/84 O2 Sat by Pulse 99 99 99 Oximetry 01/21/18 01/21/18 01/21/18 08:19 09:43 09:45 Temperature Pulse Rate 96 H 81 81 Respiratory Rate Blood Pressure 144/84 151/97 155/63 O2 Sat by Pulse 99 100 96 Oximetry 01/21/18 01/21/18 01/21/18 09:46 09:47 09:49 Temperature Pulse Rate 80 81 83 Respiratory Rate Blood Pressure 155/63 155/63 155/63 O2 Sat by Pulse 100 100 100 Oximetry 01/21/18 01/21/18 01/21/18 09:51 09:52 09:53 Temperature Pulse Rate 106 H 91 H 96 H Respiratory Rate Blood Pressure 155/63 155/63 155/63 O2 Sat by Pulse 100 98 100 Oximetry 01/21/18 01/21/18 01/21/18 09:55 09:57 09:59 Temperature Pulse Rate 78 78 78 Respiratory Rate Blood Pressure 155/63 155/63 155/63 O2 Sat by Pulse 99 100 100 Oximetry 01/21/18 01/21/18 01/21/18 10:00 10:01 10:03 Temperature Pulse Rate 80 74 76 Respiratory Rate Blood Pressure 144/85 144/85 144/85 O2 Sat by Pulse 99 96 90 Oximetry 01/21/18 01/21/18 01/21/18 10:05 10:07 10:09 Temperature Pulse Rate 79 75 81 Respiratory Rate Blood Pressure 144/85 144/85 144/85 O2 Sat by Pulse 99 100 100 Oximetry 01/21/18 01/21/18 01/21/18 10:11 10:13 10:15 Temperature Pulse Rate 81 78 88 Respiratory Rate Blood Pressure 144/85 155/63 148/84 O2 Sat by Pulse 100 100 100 Oximetry 01/21/18 01/21/18 01/21/18 10:17 10:19 10:21 Temperature Pulse Rate 83 81 84 Respiratory Rate Blood Pressure 148/84 148/84 148/84 O2 Sat by Pulse 100 100 100 Oximetry 01/21/18 01/21/18 01/21/18 10:23 10:25 10:27 Temperature Pulse Rate 79 77 75 Respiratory Rate Blood Pressure 148/84 148/84 148/84 O2 Sat by Pulse 100 95 90 Oximetry 01/21/18 01/21/18 01/21/18 10:29 10:30 10:31 Temperature Pulse Rate 78 80 74 Respiratory Rate Blood Pressure 148/84 146/83 146/83 O2 Sat by Pulse 91 90 94 Oximetry 10/18/18 10/18/18 10/18/18 10:33 10:35 10:37 Temperature Pulse Rate 76 79 82 Respiratory Rate Blood Pressure 146/83 146/83 146/83 O2 Sat by Pulse 93 95 94 Oximetry 01/21/18 01/21/18 01/21/18 10:39 10:41 10:43 Temperature Pulse Rate 77 80 82 Respiratory Rate Blood Pressure 146/83 146/83 146/83 O2 Sat by Pulse 95 95 95 Oximetry 01/21/18 01/21/18 01/21/18 10:45 10:47 10:49 Temperature Pulse Rate 79 81 84 Respiratory Rate Blood Pressure 148/87 148/87 148/87 O2 Sat by Pulse 94 96 100 Oximetry 01/21/18 01/21/18 01/21/18 10:51 10:53 10:55 Temperature Pulse Rate 80 78 81 Respiratory Rate Blood Pressure 148/87 148/87 148/87 O2 Sat by Pulse 100 98 98 Oximetry 01/21/18 01/21/18 01/21/18 10:57 10:59 11:00 Temperature Pulse Rate 76 81 78 Respiratory Rate Blood Pressure 148/87 152/86 152/86 O2 Sat by Pulse 99 100 97 Oximetry 01/21/18 01/21/18 01/21/18 11:01 11:03 11:05 Temperature Pulse Rate 75 77 76 Respiratory Rate Blood Pressure 152/86 152/86 152/86 O2 Sat by Pulse 99 99 99 Oximetry 01/21/18 01/21/18 01/21/18 11:07 11:09 11:11 Temperature Pulse Rate 79 78 85 Respiratory Rate Blood Pressure 152/86 152/86 152/86 O2 Sat by Pulse 99 99 100 Oximetry - Laboratory Findings CBC and BMP: 01/21/18 Unknown 01/21/18 Unknown Abnormal Lab Findings: Abnormal Labs 01/20/18 01/20/18 01/20/18 09:05 09:05 09:05 WBC Lymph % (Auto) Lymph # Seg Neutrophils % Seg Neuts % (Manual) Lymphocytes % (Manual) Seg Neutrophils # Seg Neutrophils # Man Lymphocytes # (Manual) Sodium Potassium Chloride 89.7 L Carbon Dioxide 18 L BUN 28 H Glucose 497 H POC Glucose Hemoglobin A1c 15.7 H Calcium Phosphorus Magnesium Total Creatine Kinase 186 H Total Protein 8.3 H Cholesterol LDL Cholesterol Direct HDL Cholesterol Lipase 10 L 01/20/18 01/20/18 01/20/18 09:05 09:09 09:23 WBC 12.7 H Lymph % (Auto) Lymph # Seg Neutrophils % Seg Neuts % (Manual) 92.0 H Lymphocytes % (Manual) 2.0 L Seg Neutrophils # Seg Neutrophils # Man 11.7 H Lymphocytes # (Manual) 0.3 L Sodium Potassium Chloride Carbon Dioxide BUN Glucose POC Glucose 394 H Hemoglobin A1c Calcium Phosphorus 4.80 H Magnesium 2.50 H Total Creatine Kinase Total Protein Cholesterol 312 H LDL Cholesterol Direct 176 H HDL Cholesterol 156 H Lipase 01/20/18 01/20/18 01/20/18 10:20 10:20 10:20 WBC Lymph % (Auto) Lymph # Seg Neutrophils % Seg Neuts % (Manual) Lymphocytes % (Manual) Seg Neutrophils # Seg Neutrophils # Man Lymphocytes # (Manual) Sodium 146 H D Potassium Chloride Carbon Dioxide BUN 27 H Glucose 316 H POC Glucose 331 H Hemoglobin A1c Calcium Phosphorus Magnesium 2.70 H Total Creatine Kinase Total Protein Cholesterol LDL Cholesterol Direct HDL Cholesterol Lipase 01/20/18 01/20/18 01/20/18 11:28 12:05 13:01 WBC Lymph % (Auto) Lymph # Seg Neutrophils % Seg Neuts % (Manual) Lymphocytes % (Manual) Seg Neutrophils # Seg Neutrophils # Man Lymphocytes # (Manual) Sodium 149 H Potassium Chloride Carbon Dioxide 20 L BUN 26 H Glucose 268 H POC Glucose 293 H 241 H Hemoglobin A1c Calcium Phosphorus Magnesium Total Creatine Kinase Total Protein Cholesterol LDL Cholesterol Direct HDL Cholesterol Lipase 01/20/18 01/20/18 01/20/18 14:36 16:15 16:15 WBC Lymph % (Auto) Lymph # Seg Neutrophils % Seg Neuts % (Manual) Lymphocytes % (Manual) Seg Neutrophils # Seg Neutrophils # Man Lymphocytes # (Manual) Sodium Potassium Chloride Carbon Dioxide 21 L BUN 25 H Glucose 294 H POC Glucose 277 H 267 H Hemoglobin A1c Calcium Phosphorus Magnesium Total Creatine Kinase Total Protein Cholesterol LDL Cholesterol Direct HDL Cholesterol Lipase 01/20/18 01/20/18 01/20/18 17:25 18:19 19:18 WBC Lymph % (Auto) Lymph # Seg Neutrophils % Seg Neuts % (Manual) Lymphocytes % (Manual) Seg Neutrophils # Seg Neutrophils # Man Lymphocytes # (Manual) Sodium Potassium Chloride Carbon Dioxide BUN Glucose POC Glucose 257 H 264 H 221 H Hemoglobin A1c Calcium Phosphorus Magnesium Total Creatine Kinase Total Protein Cholesterol LDL Cholesterol Direct HDL Cholesterol Lipase 01/20/18 01/20/18 01/20/18 20:02 20:02 21:00 WBC Lymph % (Auto) Lymph # Seg Neutrophils % Seg Neuts % (Manual) Lymphocytes % (Manual) Seg Neutrophils # Seg Neutrophils # Man Lymphocytes # (Manual) Sodium 148 H Potassium Chloride 107.3 H Carbon Dioxide BUN 27 H Glucose 202 H POC Glucose 190 H 189 H Hemoglobin A1c Calcium Phosphorus Magnesium Total Creatine Kinase Total Protein Cholesterol LDL Cholesterol Direct HDL Cholesterol Lipase 01/20/18 01/20/18 01/21/18 21:56 23:01 00:03 WBC Lymph % (Auto) Lymph # Seg Neutrophils % Seg Neuts % (Manual) Lymphocytes % (Manual) Seg Neutrophils # Seg Neutrophils # Man Lymphocytes # (Manual) Sodium Potassium Chloride Carbon Dioxide BUN Glucose POC Glucose 163 H 156 H 159 H Hemoglobin A1c Calcium Phosphorus Magnesium Total Creatine Kinase Total Protein Cholesterol LDL Cholesterol Direct HDL Cholesterol Lipase 01/21/18 01/21/18 01/21/18 01:06 01:57 03:04 WBC Lymph % (Auto) Lymph # Seg Neutrophils % Seg Neuts % (Manual) Lymphocytes % (Manual) Seg Neutrophils # Seg Neutrophils # Man Lymphocytes # (Manual) Sodium Potassium Chloride Carbon Dioxide BUN Glucose POC Glucose 149 H 147 H 169 H Hemoglobin A1c Calcium Phosphorus Magnesium Total Creatine Kinase Total Protein Cholesterol LDL Cholesterol Direct HDL Cholesterol Lipase 01/21/18 01/21/18 01/21/18 03:47 03:47 03:50 WBC Lymph % (Auto) Lymph # Seg Neutrophils % Seg Neuts % (Manual) Lymphocytes % (Manual) Seg Neutrophils # Seg Neutrophils # Man Lymphocytes # (Manual) Sodium Potassium Chloride 109.4 H Carbon Dioxide BUN 21 H Glucose 165 H POC Glucose 159 H Hemoglobin A1c Calcium 8.3 L Phosphorus Magnesium Total Creatine Kinase 226 H Total Protein Cholesterol LDL Cholesterol Direct HDL Cholesterol Lipase 01/21/18 01/21/18 01/21/18 05:05 06:09 06:35 WBC Lymph % (Auto) Lymph # Seg Neutrophils % Seg Neuts % (Manual) Lymphocytes % (Manual) Seg Neutrophils # Seg Neutrophils # Man Lymphocytes # (Manual) Sodium Potassium Chloride Carbon Dioxide BUN Glucose POC Glucose 166 H 172 H 181 H Hemoglobin A1c Calcium Phosphorus Magnesium Total Creatine Kinase Total Protein Cholesterol LDL Cholesterol Direct HDL Cholesterol Lipase 01/21/18 01/21/18 01/21/18 07:43 08:55 10:15 WBC Lymph % (Auto) Lymph # Seg Neutrophils % Seg Neuts % (Manual) Lymphocytes % (Manual) Seg Neutrophils # Seg Neutrophils # Man Lymphocytes # (Manual) Sodium Potassium Chloride Carbon Dioxide BUN Glucose POC Glucose 182 H 137 H 166 H Hemoglobin A1c Calcium Phosphorus Magnesium Total Creatine Kinase Total Protein Cholesterol LDL Cholesterol Direct HDL Cholesterol Lipase 01/21/18 01/21/18 01/21/18 10:55 12:24 Unknown WBC Lymph % (Auto) Lymph # Seg Neutrophils % Seg Neuts % (Manual) Lymphocytes % (Manual) Seg Neutrophils # Seg Neutrophils # Man Lymphocytes # (Manual) Sodium Potassium 3.4 L Chloride Carbon Dioxide 20 L BUN Glucose 161 H POC Glucose 176 H 166 H Hemoglobin A1c Calcium Phosphorus Magnesium Total Creatine Kinase Total Protein Cholesterol LDL Cholesterol Direct HDL Cholesterol Lipase 01/21/18 Unknown WBC Lymph % (Auto) 9.2 L Lymph # 1.0 L Seg Neutrophils % 82.4 H Seg Neuts % (Manual) Lymphocytes % (Manual) Seg Neutrophils # 8.5 H Seg Neutrophils # Man Lymphocytes # (Manual) Sodium Potassium Chloride Carbon Dioxide BUN Glucose POC Glucose Hemoglobin A1c Calcium Phosphorus Magnesium Total Creatine Kinase Total Protein Cholesterol LDL Cholesterol Direct HDL Cholesterol Lipase
[2018-01-21] MEDS: LOVENOX SUB-Q SCH (13:39)
--- NOTE | 2018-01-21 13:41 | Progress Note ---
Assessment and Plan cath placed #14 coude clear not very cooperative dictated Subjective Date of service: 01/21/18 Principal diagnosis: DKA; Severe Abdominal Pain; Intractable N&V; Severe Bladder Distension Objective - Constitutional Vitals: Vital Signs - 12hr 01/21/18 01/21/18 01/21/18 01:41 01:43 01:45 Temperature Pulse Rate 89 90 89 Respiratory 13 12 13 Rate Blood Pressure 99/55 99/55 99/55 O2 Sat by Pulse 98 99 Oximetry 01/21/18 01/21/18 01/21/18 01:47 01:49 01:51 Temperature Pulse Rate 90 87 91 H Respiratory 14 13 16 Rate Blood Pressure 99/55 99/55 99/55 O2 Sat by Pulse 97 97 96 Oximetry 01/21/18 01/21/18 01/21/18 01:53 01:55 01:57 Temperature Pulse Rate 92 H 86 86 Respiratory 11 L 11 L 12 Rate Blood Pressure 99/55 99/55 99/55 O2 Sat by Pulse 97 99 97 Oximetry 01/21/18 01/21/18 01/21/18 01:59 02:00 02:01 Temperature Pulse Rate 85 86 86 Respiratory 11 L 11 L 11 L Rate Blood Pressure 111/63 111/63 111/63 O2 Sat by Pulse 97 96 97 Oximetry 01/21/18 01/21/18 01/21/18 02:03 02:05 02:07 Temperature Pulse Rate 85 85 86 Respiratory 11 L 12 11 L Rate Blood Pressure 111/63 111/63 111/63 O2 Sat by Pulse 96 96 96 Oximetry 01/21/18 01/21/18 01/21/18 02:09 02:11 02:13 Temperature Pulse Rate 84 94 H 85 Respiratory 11 L 13 11 L Rate Blood Pressure 111/63 111/63 111/63 O2 Sat by Pulse 96 97 96 Oximetry 01/21/18 01/21/18 01/21/18 02:15 02:16 02:17 Temperature Pulse Rate 88 89 87 Respiratory 6 L 16 13 Rate Blood Pressure 111/63 101/62 101/62 O2 Sat by Pulse 93 96 93 Oximetry 01/21/18 01/21/18 01/21/18 02:19 02:21 02:23 Temperature Pulse Rate 91 H 86 87 Respiratory 12 12 13 Rate Blood Pressure 101/62 101/62 101/62 O2 Sat by Pulse 94 94 94 Oximetry 01/21/18 01/21/18 01/21/18 02:25 02:27 02:29 Temperature Pulse Rate 86 87 86 Respiratory 12 12 12 Rate Blood Pressure 101/62 101/62 101/62 O2 Sat by Pulse 94 94 94 Oximetry 01/21/18 01/21/18 01/21/18 02:31 02:33 02:35 Temperature Pulse Rate 87 85 88 Respiratory 17 12 14 Rate Blood Pressure 101/70 101/70 101/70 O2 Sat by Pulse 95 95 94 Oximetry 01/21/18 01/21/18 01/21/18 02:37 02:39 02:41 Temperature Pulse Rate 87 87 84 Respiratory 13 14 13 Rate Blood Pressure 101/70 101/70 101/70 O2 Sat by Pulse 94 94 97 Oximetry 01/21/18 01/21/18 01/21/18 02:43 02:45 02:47 Temperature Pulse Rate 87 86 88 Respiratory 15 15 12 Rate Blood Pressure 101/70 97/62 97/62 O2 Sat by Pulse 94 93 95 Oximetry 01/21/18 01/21/18 01/21/18 02:49 02:51 02:53 Temperature Pulse Rate 86 86 87 Respiratory 15 14 14 Rate Blood Pressure 97/62 97/62 97/62 O2 Sat by Pulse 95 95 94 Oximetry 01/21/18 01/21/18 01/21/18 02:55 02:57 02:59 Temperature Pulse Rate 85 86 86 Respiratory 13 12 13 Rate Blood Pressure 97/62 97/62 102/71 O2 Sat by Pulse 96 95 95 Oximetry 01/21/18 01/21/18 01/21/18 03:00 03:01 03:03 Temperature Pulse Rate 91 H 91 H 88 Respiratory 12 13 13 Rate Blood Pressure 102/71 102/71 102/71 O2 Sat by Pulse 94 96 94 Oximetry 01/21/18 01/21/18 01/21/18 03:05 03:07 03:09 Temperature Pulse Rate 86 85 87 Respiratory 12 12 13 Rate Blood Pressure 102/71 102/71 102/71 O2 Sat by Pulse 95 95 95 Oximetry 01/21/18 01/21/18 01/21/18 03:11 03:13 03:15 Temperature Pulse Rate 88 87 86 Respiratory 12 12 11 L Rate Blood Pressure 102/71 102/71 92/51 O2 Sat by Pulse 94 94 94 Oximetry 01/21/18 01/21/18 01/21/18 03:17 03:19 03:21 Temperature Pulse Rate 86 84 86 Respiratory 12 12 12 Rate Blood Pressure 92/51 92/51 92/51 O2 Sat by Pulse 96 96 96 Oximetry 01/21/18 01/21/18 01/21/18 03:23 03:25 03:27 Temperature Pulse Rate 85 85 86 Respiratory 13 12 13 Rate Blood Pressure 92/51 92/51 92/51 O2 Sat by Pulse 97 97 97 Oximetry 01/21/18 01/21/18 01/21/18 03:29 03:30 03:31 Temperature Pulse Rate 87 87 86 Respiratory 13 17 10 L Rate Blood Pressure 92/51 96/57 96/57 O2 Sat by Pulse 97 95 99 Oximetry 01/21/18 01/21/18 01/21/18 03:33 03:35 03:37 Temperature Pulse Rate 96 H 87 88 Respiratory 14 13 16 Rate Blood Pressure 96/57 96/57 96/57 O2 Sat by Pulse 97 99 99 Oximetry 01/21/18 01/21/18 01/21/18 03:39 03:41 03:43 Temperature Pulse Rate 87 83 83 Respiratory 12 12 12 Rate Blood Pressure 96/57 96/57 96/57 O2 Sat by Pulse 99 99 98 Oximetry 01/21/18 01/21/18 01/21/18 03:45 03:47 03:49 Temperature Pulse Rate 85 87 91 H Respiratory 11 L 17 16 Rate Blood Pressure 102/61 102/61 102/61 O2 Sat by Pulse 97 99 99 Oximetry 01/21/18 01/21/18 01/21/18 03:51 03:53 03:55 Temperature Pulse Rate 97 H 86 86 Respiratory 10 L 12 12 Rate Blood Pressure 102/61 102/61 102/61 O2 Sat by Pulse 99 99 98 Oximetry 01/21/18 01/21/18 01/21/18 03:57 03:59 04:00 Temperature 98.1 F Pulse Rate 81 80 Respiratory 12 12 Rate Blood Pressure 102/61 102/61 O2 Sat by Pulse 98 98 Oximetry 01/21/18 01/21/18 01/21/18 04:01 04:03 04:05 Temperature Pulse Rate 82 89 87 Respiratory 11 L 12 16 Rate Blood Pressure 119/65 119/65 119/65 O2 Sat by Pulse 96 100 98 Oximetry 01/21/18 01/21/18 01/21/18 04:07 04:09 04:11 Temperature Pulse Rate 81 78 76 Respiratory 13 10 L 15 Rate Blood Pressure 119/65 119/65 119/65 O2 Sat by Pulse 100 100 100 Oximetry 01/21/18 01/21/18 01/21/18 04:13 04:15 04:17 Temperature Pulse Rate 75 77 76 Respiratory 8 L 13 12 Rate Blood Pressure 119/65 137/80 137/80 O2 Sat by Pulse 100 100 100 Oximetry 01/21/18 01/21/18 01/21/18 04:19 04:21 04:23 Temperature Pulse Rate 80 80 75 Respiratory 10 L 9 L 10 L Rate Blood Pressure 137/80 137/80 137/80 O2 Sat by Pulse 100 99 100 Oximetry 01/21/18 01/21/18 01/21/18 04:25 04:27 04:29 Temperature Pulse Rate 82 79 77 Respiratory 12 10 L 12 Rate Blood Pressure 137/80 137/80 141/78 O2 Sat by Pulse 99 100 100 Oximetry 01/21/18 01/21/18 01/21/18 04:30 04:31 04:33 Temperature Pulse Rate 77 78 79 Respiratory 13 14 14 Rate Blood Pressure 141/78 141/78 141/78 O2 Sat by Pulse 98 99 100 Oximetry 01/21/18 01/21/18 01/21/18 04:35 04:37 04:39 Temperature Pulse Rate 79 78 80 Respiratory 13 12 14 Rate Blood Pressure 141/78 141/78 141/78 O2 Sat by Pulse 100 99 99 Oximetry 01/21/18 01/21/18 01/21/18 04:41 04:43 04:45 Temperature Pulse Rate 78 81 82 Respiratory 13 13 13 Rate Blood Pressure 141/78 141/78 140/83 O2 Sat by Pulse 100 100 98 Oximetry 01/21/18 01/21/18 01/21/18 04:47 04:49 04:51 Temperature Pulse Rate 83 80 79 Respiratory 12 12 12 Rate Blood Pressure 140/83 140/83 140/83 O2 Sat by Pulse 100 100 100 Oximetry 01/21/18 01/21/18 01/21/18 04:53 04:55 04:57 Temperature Pulse Rate 82 81 83 Respiratory 12 13 13 Rate Blood Pressure 140/83 140/83 140/83 O2 Sat by Pulse 100 99 99 Oximetry 01/21/18 01/21/18 01/21/18 04:59 05:00 05:01 Temperature Pulse Rate 83 85 85 Respiratory 14 14 13 Rate Blood Pressure 139/79 139/79 139/79 O2 Sat by Pulse 98 97 100 Oximetry 01/21/18 01/21/18 01/21/18 05:03 05:05 05:07 Temperature Pulse Rate 92 H 96 H 99 H Respiratory 25 H 21 21 Rate Blood Pressure 139/79 139/79 139/79 O2 Sat by Pulse 100 100 98 Oximetry 01/21/18 01/21/18 01/21/18 05:09 05:11 05:13 Temperature Pulse Rate 93 H 91 H 89 Respiratory 14 16 19 Rate Blood Pressure 139/79 139/79 139/79 O2 Sat by Pulse 100 100 95 Oximetry 01/21/18 01/21/18 01/21/18 05:15 05:17 05:19 Temperature Pulse Rate 95 H 88 91 H Respiratory 23 29 H 18 Rate Blood Pressure 139/84 139/84 139/84 O2 Sat by Pulse 96 99 99 Oximetry 01/21/18 01/21/18 01/21/18 05:21 05:23 05:25 Temperature Pulse Rate 83 87 108 H Respiratory 21 24 35 H Rate Blood Pressure 139/84 139/84 139/84 O2 Sat by Pulse 99 99 96 Oximetry 01/21/18 01/21/18 01/21/18 05:27 05:29 05:30 Temperature Pulse Rate 91 H 86 87 Respiratory 13 15 13 Rate Blood Pressure 139/84 132/78 132/78 O2 Sat by Pulse 92 95 91 Oximetry 01/21/18 01/21/18 01/21/18 05:31 05:33 05:35 Temperature Pulse Rate 86 85 89 Respiratory 14 13 14 Rate Blood Pressure 132/78 132/78 132/78 O2 Sat by Pulse 95 95 96 Oximetry 01/21/18 01/21/18 01/21/18 05:37 05:39 05:41 Temperature Pulse Rate 86 87 90 Respiratory 15 15 12 Rate Blood Pressure 132/78 132/78 132/78 O2 Sat by Pulse 95 96 97 Oximetry 01/21/18 01/21/18 01/21/18 05:43 05:45 05:47 Temperature Pulse Rate 97 H 89 88 Respiratory 14 16 16 Rate Blood Pressure 132/78 125/63 125/63 O2 Sat by Pulse 97 97 95 Oximetry 01/21/18 01/21/18 01/21/18 05:49 05:51 05:53 Temperature Pulse Rate 84 87 88 Respiratory 13 14 14 Rate Blood Pressure 125/63 125/63 125/63 O2 Sat by Pulse 96 96 96 Oximetry 01/21/18 01/21/18 01/21/18 05:55 05:57 05:59 Temperature Pulse Rate 86 88 88 Respiratory 14 14 15 Rate Blood Pressure 125/63 125/63 121/73 O2 Sat by Pulse 96 97 97 Oximetry 01/21/18 01/21/18 01/21/18 06:00 06:01 06:25 Temperature Pulse Rate 87 88 100 H Respiratory 18 15 52 H Rate Blood Pressure 121/73 121/73 122/80 O2 Sat by Pulse 94 97 100 Oximetry 01/21/18 01/21/18 01/21/18 06:26 06:27 06:29 Temperature Pulse Rate 90 101 H 92 H Respiratory 52 H 30 H 19 Rate Blood Pressure 125/63 122/80 132/75 O2 Sat by Pulse 100 100 98 Oximetry 01/21/18 01/21/18 01/21/18 06:30 06:31 06:33 Temperature Pulse Rate 87 85 83 Respiratory 23 18 26 H Rate Blood Pressure 138/78 138/78 138/78 O2 Sat by Pulse 98 98 100 Oximetry 01/21/18 01/21/18 01/21/18 06:35 06:36 06:37 Temperature Pulse Rate 102 H 100 H 90 Respiratory 25 H 33 H 28 H Rate Blood Pressure 138/78 138/78 122/80 O2 Sat by Pulse 97 97 96 Oximetry 01/21/18 01/21/18 01/21/18 06:39 06:40 06:41 Temperature Pulse Rate 89 84 83 Respiratory 35 H 37 H 17 Rate Blood Pressure 122/80 138/78 122/80 O2 Sat by Pulse 98 98 91 Oximetry 01/21/18 01/21/18 01/21/18 06:43 06:45 06:46 Temperature Pulse Rate 87 85 87 Respiratory 21 26 H 13 Rate Blood Pressure 122/80 137/76 138/78 O2 Sat by Pulse 94 92 96 Oximetry 01/21/18 01/21/18 01/21/18 06:47 06:48 06:49 Temperature Pulse Rate 83 86 85 Respiratory 15 13 16 Rate Blood Pressure 137/76 137/76 137/76 O2 Sat by Pulse 95 95 96 Oximetry 01/21/18 01/21/18 01/21/18 06:51 06:53 06:55 Temperature Pulse Rate 84 83 84 Respiratory 16 13 16 Rate Blood Pressure 137/76 137/76 137/76 O2 Sat by Pulse 96 96 96 Oximetry 01/21/18 01/21/18 01/21/18 06:57 06:59 07:00 Temperature Pulse Rate 86 84 85 Respiratory 17 15 13 Rate Blood Pressure 137/76 137/76 137/81 O2 Sat by Pulse 97 97 94 Oximetry 01/21/18 01/21/18 01/21/18 07:01 07:03 07:05 Temperature Pulse Rate 96 H 89 85 Respiratory 14 15 14 Rate Blood Pressure 137/81 137/81 137/81 O2 Sat by Pulse 97 97 98 Oximetry 01/21/18 01/21/18 01/21/18 07:07 07:09 07:11 Temperature Pulse Rate 86 82 88 Respiratory 13 17 26 H Rate Blood Pressure 137/81 137/76 137/76 O2 Sat by Pulse 99 99 100 Oximetry 01/21/18 01/21/18 01/21/18 07:13 07:15 07:17 Temperature Pulse Rate 97 H 93 H 89 Respiratory 13 22 23 Rate Blood Pressure 137/76 130/82 130/82 O2 Sat by Pulse 99 96 98 Oximetry 01/21/18 01/21/18 01/21/18 07:19 07:21 07:23 Temperature Pulse Rate 100 H 103 H 89 Respiratory 41 H 31 H 13 Rate Blood Pressure 130/82 130/82 130/82 O2 Sat by Pulse 99 99 99 Oximetry 01/21/18 01/21/18 01/21/18 07:25 07:27 07:29 Temperature Pulse Rate 92 H 96 H 105 H Respiratory 13 20 16 Rate Blood Pressure 130/82 130/82 147/87 O2 Sat by Pulse 99 100 95 Oximetry 01/21/18 01/21/18 01/21/18 07:30 07:31 07:33 Temperature Pulse Rate 103 H 90 83 Respiratory 9 L 31 H 13 Rate Blood Pressure 147/87 147/87 147/87 O2 Sat by Pulse 90 97 97 Oximetry 01/21/18 01/21/18 01/21/18 07:35 07:37 07:39 Temperature Pulse Rate 83 85 85 Respiratory 22 14 21 Rate Blood Pressure 147/87 147/87 147/87 O2 Sat by Pulse 99 98 97 Oximetry 01/21/18 01/21/18 01/21/18 07:41 07:43 07:45 Temperature Pulse Rate 88 87 85 Respiratory 14 11 L 16 Rate Blood Pressure 147/87 147/87 137/85 O2 Sat by Pulse 99 100 96 Oximetry 01/21/18 01/21/18 01/21/18 07:47 07:49 07:51 Temperature Pulse Rate 86 109 H 91 H Respiratory 22 21 18 Rate Blood Pressure 137/85 137/85 137/85 O2 Sat by Pulse 99 99 100 Oximetry 01/21/18 01/21/18 01/21/18 07:52 07:53 07:55 Temperature Pulse Rate 87 94 H 86 Respiratory 20 14 23 Rate Blood Pressure 137/76 137/85 137/85 O2 Sat by Pulse 99 100 100 Oximetry 01/21/18 01/21/18 01/21/18 07:57 07:59 08:01 Temperature Pulse Rate 88 86 85 Respiratory 17 14 26 H Rate Blood Pressure 137/85 137/85 137/85 O2 Sat by Pulse 100 100 99 Oximetry 01/21/18 01/21/18 01/21/18 08:03 08:05 08:07 Temperature Pulse Rate 96 H 97 H 94 H Respiratory 20 12 19 Rate Blood Pressure 137/85 137/85 137/85 O2 Sat by Pulse 99 97 99 Oximetry 01/21/18 01/21/18 01/21/18 08:09 08:11 08:13 Temperature Pulse Rate 92 H 91 H 95 H Respiratory 21 33 H 21 Rate Blood Pressure 137/85 137/85 137/85 O2 Sat by Pulse 99 99 99 Oximetry 01/21/18 01/21/18 01/21/18 08:15 08:17 08:19 Temperature Pulse Rate 89 100 H 96 H Respiratory 18 24 Rate Blood Pressure 144/84 144/84 144/84 O2 Sat by Pulse 99 99 99 Oximetry 01/21/18 01/21/18 01/21/18 09:43 09:45 09:46 Temperature Pulse Rate 81 81 80 Respiratory Rate Blood Pressure 151/97 155/63 155/63 O2 Sat by Pulse 100 96 100 Oximetry 01/21/18 01/21/18 01/21/18 09:47 09:49 09:51 Temperature Pulse Rate 81 83 106 H Respiratory Rate Blood Pressure 155/63 155/63 155/63 O2 Sat by Pulse 100 100 100 Oximetry 01/21/18 01/21/18 01/21/18 09:52 09:53 09:55 Temperature Pulse Rate 91 H 96 H 78 Respiratory Rate Blood Pressure 155/63 155/63 155/63 O2 Sat by Pulse 98 100 99 Oximetry 01/21/18 01/21/18 01/21/18 09:57 09:59 10:00 Temperature Pulse Rate 78 78 80 Respiratory Rate Blood Pressure 155/63 155/63 144/85 O2 Sat by Pulse 100 100 99 Oximetry 01/21/18 01/21/18 01/21/18 10:01 10:03 10:05 Temperature Pulse Rate 74 76 79 Respiratory Rate Blood Pressure 144/85 144/85 144/85 O2 Sat by Pulse 96 90 99 Oximetry 01/21/18 01/21/18 01/21/18 10:07 10:09 10:11 Temperature Pulse Rate 75 81 81 Respiratory Rate Blood Pressure 144/85 144/85 144/85 O2 Sat by Pulse 100 100 100 Oximetry 01/21/18 01/21/18 01/21/18 10:13 10:15 10:17 Temperature Pulse Rate 78 88 83 Respiratory Rate Blood Pressure 155/63 148/84 148/84 O2 Sat by Pulse 100 100 100 Oximetry 01/21/18 01/21/18 01/21/18 10:19 10:21 10:23 Temperature Pulse Rate 81 84 79 Respiratory Rate Blood Pressure 148/84 148/84 148/84 O2 Sat by Pulse 100 100 100 Oximetry 01/21/18 01/21/18 01/21/18 10:25 10:27 10:29 Temperature Pulse Rate 77 75 78 Respiratory Rate Blood Pressure 148/84 148/84 148/84 O2 Sat by Pulse 95 90 91 Oximetry 01/21/18 01/21/18 01/21/18 10:30 10:31 10:33 Temperature Pulse Rate 80 74 76 Respiratory Rate Blood Pressure 146/83 146/83 146/83 O2 Sat by Pulse 90 94 93 Oximetry 01/21/18 01/21/18 01/21/18 10:35 10:37 10:39 Temperature Pulse Rate 79 82 77 Respiratory Rate Blood Pressure 146/83 146/83 146/83 O2 Sat by Pulse 95 94 95 Oximetry 01/21/18 01/21/18 01/21/18 10:41 10:43 10:45 Temperature Pulse Rate 80 82 79 Respiratory Rate Blood Pressure 146/83 146/83 148/87 O2 Sat by Pulse 95 95 94 Oximetry 01/21/18 01/21/18 01/21/18 10:47 10:49 10:51 Temperature Pulse Rate 81 84 80 Respiratory Rate Blood Pressure 148/87 148/87 148/87 O2 Sat by Pulse 96 100 100 Oximetry 01/21/18 01/21/18 01/21/18 10:53 10:55 10:57 Temperature Pulse Rate 78 81 76 Respiratory Rate Blood Pressure 148/87 148/87 148/87 O2 Sat by Pulse 98 98 99 Oximetry 01/21/18 01/21/18 01/21/18 10:59 11:00 11:01 Temperature Pulse Rate 81 78 75 Respiratory Rate Blood Pressure 152/86 152/86 152/86 O2 Sat by Pulse 100 97 99 Oximetry 01/21/18 01/21/18 01/21/18 11:03 11:05 11:07 Temperature Pulse Rate 77 76 79 Respiratory Rate Blood Pressure 152/86 152/86 152/86 O2 Sat by Pulse 99 99 99 Oximetry 01/21/18 01/21/18 11:09 11:11 Temperature Pulse Rate 78 85 Respiratory Rate Blood Pressure 152/86 152/86 O2 Sat by Pulse 99 100 Oximetry General appearance: Present: mild distress - Neck Neck: supple - Respiratory Respiratory effort: normal Extremities: no ischemia - Gastrointestinal General gastrointestinal: Present: tender - Psychiatric Psychiatric: other (sleepy non cooperative ) - Labs CBC & Chem 7: 01/21/18 Unknown 01/21/18 Unknown Labs: Abnormal lab results 01/20/18 01/20/18 01/20/18 Range/Units 13:01 14:36 16:15 Lymph % (Auto) (13.4-35.0) % Lymph # (1.2-5.4) K/mm3 Seg Neutrophils % (40.0-70.0) % Seg Neutrophils # (1.8-7.7) K/mm3 Sodium (137-145) mmol/L Potassium (3.6-5.0) mmol/L Chloride (98-107) mmol/L Carbon Dioxide 21 L (22-30) mmol/L BUN 25 H (9-20) mg/dL Glucose 294 H (75-100) mg/dL POC Glucose 241 H 277 H (70-105) Calcium (8.4-10.2) mg/dL Total Creatine Kinase (55-170) units/L 01/20/18 01/20/18 01/20/18 Range/Units 16:15 17:25 18:19 Lymph % (Auto) (13.4-35.0) % Lymph # (1.2-5.4) K/mm3 Seg Neutrophils % (40.0-70.0) % Seg Neutrophils # (1.8-7.7) K/mm3 Sodium (137-145) mmol/L Potassium (3.6-5.0) mmol/L Chloride (98-107) mmol/L Carbon Dioxide (22-30) mmol/L BUN (9-20) mg/dL Glucose (75-100) mg/dL POC Glucose 267 H 257 H 264 H (70-105) Calcium (8.4-10.2) mg/dL Total Creatine Kinase (55-170) units/L 01/20/18 01/20/18 01/20/18 Range/Units 19:18 20:02 20:02 Lymph % (Auto) (13.4-35.0) % Lymph # (1.2-5.4) K/mm3 Seg Neutrophils % (40.0-70.0) % Seg Neutrophils # (1.8-7.7) K/mm3 Sodium 148 H (137-145) mmol/L Potassium (3.6-5.0) mmol/L Chloride 107.3 H (98-107) mmol/L Carbon Dioxide (22-30) mmol/L BUN 27 H (9-20) mg/dL Glucose 202 H (75-100) mg/dL POC Glucose 221 H 190 H (70-105) Calcium (8.4-10.2) mg/dL Total Creatine Kinase (55-170) units/L 01/20/18 01/20/18 01/20/18 Range/Units 21:00 21:56 23:01 Lymph % (Auto) (13.4-35.0) % Lymph # (1.2-5.4) K/mm3 Seg Neutrophils % (40.0-70.0) % Seg Neutrophils # (1.8-7.7) K/mm3 Sodium (137-145) mmol/L Potassium (3.6-5.0) mmol/L Chloride (98-107) mmol/L Carbon Dioxide (22-30) mmol/L BUN (9-20) mg/dL Glucose (75-100) mg/dL POC Glucose 189 H 163 H 156 H (70-105) Calcium (8.4-10.2) mg/dL Total Creatine Kinase (55-170) units/L 01/21/18 01/21/18 01/21/18 Range/Units 00:03 01:06 01:57 Lymph % (Auto) (13.4-35.0) % Lymph # (1.2-5.4) K/mm3 Seg Neutrophils % (40.0-70.0) % Seg Neutrophils # (1.8-7.7) K/mm3 Sodium (137-145) mmol/L Potassium (3.6-5.0) mmol/L Chloride (98-107) mmol/L Carbon Dioxide (22-30) mmol/L BUN (9-20) mg/dL Glucose (75-100) mg/dL POC Glucose 159 H 149 H 147 H (70-105) Calcium (8.4-10.2) mg/dL Total Creatine Kinase (55-170) units/L 01/21/18 01/21/18 01/21/18 Range/Units 03:04 03:47 03:47 Lymph % (Auto) (13.4-35.0) % Lymph # (1.2-5.4) K/mm3 Seg Neutrophils % (40.0-70.0) % Seg Neutrophils # (1.8-7.7) K/mm3 Sodium (137-145) mmol/L Potassium (3.6-5.0) mmol/L Chloride 109.4 H (98-107) mmol/L Carbon Dioxide (22-30) mmol/L BUN 21 H (9-20) mg/dL Glucose 165 H (75-100) mg/dL POC Glucose 169 H (70-105) Calcium 8.3 L (8.4-10.2) mg/dL Total Creatine Kinase 226 H (55-170) units/L 01/21/18 01/21/18 01/21/18 Range/Units 03:50 05:05 06:09 Lymph % (Auto) (13.4-35.0) % Lymph # (1.2-5.4) K/mm3 Seg Neutrophils % (40.0-70.0) % Seg Neutrophils # (1.8-7.7) K/mm3 Sodium (137-145) mmol/L Potassium (3.6-5.0) mmol/L Chloride (98-107) mmol/L Carbon Dioxide (22-30) mmol/L BUN (9-20) mg/dL Glucose (75-100) mg/dL POC Glucose 159 H 166 H 172 H (70-105) Calcium (8.4-10.2) mg/dL Total Creatine Kinase (55-170) units/L 01/21/18 01/21/18 01/21/18 Range/Units 06:35 07:43 08:55 Lymph % (Auto) (13.4-35.0) % Lymph # (1.2-5.4) K/mm3 Seg Neutrophils % (40.0-70.0) % Seg Neutrophils # (1.8-7.7) K/mm3 Sodium (137-145) mmol/L Potassium (3.6-5.0) mmol/L Chloride (98-107) mmol/L Carbon Dioxide (22-30) mmol/L BUN (9-20) mg/dL Glucose (75-100) mg/dL POC Glucose 181 H 182 H 137 H (70-105) Calcium (8.4-10.2) mg/dL Total Creatine Kinase (55-170) units/L 01/21/18 01/21/18 01/21/18 Range/Units 10:15 10:55 12:24 Lymph % (Auto) (13.4-35.0) % Lymph # (1.2-5.4) K/mm3 Seg Neutrophils % (40.0-70.0) % Seg Neutrophils # (1.8-7.7) K/mm3 Sodium (137-145) mmol/L Potassium (3.6-5.0) mmol/L Chloride (98-107) mmol/L Carbon Dioxide (22-30) mmol/L BUN (9-20) mg/dL Glucose (75-100) mg/dL POC Glucose 166 H 176 H 166 H (70-105) Calcium (8.4-10.2) mg/dL Total Creatine Kinase (55-170) units/L 01/21/18 01/21/18 Range/Units Unknown Unknown Lymph % (Auto) 9.2 L (13.4-35.0) % Lymph # 1.0 L (1.2-5.4) K/mm3 Seg Neutrophils % 82.4 H (40.0-70.0) % Seg Neutrophils # 8.5 H (1.8-7.7) K/mm3 Sodium (137-145) mmol/L Potassium 3.4 L (3.6-5.0) mmol/L Chloride (98-107) mmol/L Carbon Dioxide 20 L (22-30) mmol/L BUN (9-20) mg/dL Glucose 161 H (75-100) mg/dL POC Glucose (70-105) Calcium (8.4-10.2) mg/dL Total Creatine Kinase (55-170) units/L
[2018-01-21] MEDS ORDERED: NACL 0.9% 1000 ML 2,000 ML IV ONE (17:44)
[2018-01-21 17:50] LABS: Amphetamine Screen,Urine PRESUMPTIVE NEGATIVE; Benzodiazepines Screen,Urine PRESUMPTIVE NEGATIVE; Methadone Screen,Urine PRESUMPTIVE NEGATIVE; Opiate Screen,Urine PRESUMPTIVE NEGATIVE
[2018-01-21 18:11] LABS: Cannabinoid Screen,Urine PRESUMPTIVE POSITIVE; Cocaine Screen,Urine PRESUMPTIVE POSITIVE
[2018-01-21] MEDS: MORPHINE IV PRN ×2 (18:48→22:36)
--- NOTE | 2018-01-21 19:18 | Progress Note ---
Assessment and Plan Assessment and plan: Patient seen 52-year-old male with past medical history significant for cardiomyopathy with a AICD placement secondary to EF of 30-35% was reduced RV systolic function, Also diabetes uncontrolled with peripheral neuropathy prior history of cocaine use in the past. Patient reports that he has been noncompliant with his medications. Presented to the ED with complaints of abdominal pain 3/10 that has been ongoing for 3 days position and nausea vomiting. The patient was very mild forthcoming with information and did not provide any much information and only allowed limited examination. He is unable to tell me how much insulin and medications that he takes. DKA Leukocytosis Metabolic Acidosis Uncontrolled DM cardiomyopathy s/p PPM Hypertension Abdominal pain with peritoneal irritation Neurogenic bladder Seizure History of substance abuse preference cocaine Plan Continue current measures. We'll obtain a repeat CT scan with contrast to rule out ischemic bowel and dissection Continue DKA protocol Give to bolus of fluid. Consults neurologist for seizure management Consult placed to urology for placement of Griggs catheter patient possibly with neurogenic bladder DKA protocol Patient noncompliance required extensive discussion for patient to be agreeable for placement of Griggs catheter. pain control DVT and GI prophylaxis Patient is not putting good enough urinary output may need a Griggs catheter placed he refuses at this time. The high probability of a clinically significant, sudden or life threatening deterioration of the [endocrine, GI] system(s) required my full and direct attention, intervention and personal management. The aggregate critical care time was [35] minutes. This time is in addition to time spent performing reported procedures but includes the following: [x] Data Review and interpretation [x] Patient assessment and monitoring of vital signs [x] Documentation [x] Medication orders and management History Interval history: Patient seen and examined this morning still with abdominal pain that was a mention of possible seizure versus CODE BLUE which lasted for 2 seconds no rhythm available to review at this time. Patient appears to be doing well still complaints of abdominal pain. Rates it a 3/10 in intensity no guarding appreciated at this time. Hospitalist Physical - Physical exam Narrative exam: VITAL SIGNS: Reviewed. GENERAL: The patient appeared well nourished and normally developed. Vital signs as documented. HEAD: No signs of head trauma. EYES: Pupils are equal. Extraocular motions intact. EARS: Hearing grossly intact. MOUTH: Oropharynx is normal. NECK: No adenopathy, no JVD. CHEST: Chest with clear breath sounds bilaterally. No wheezes, rales, or rhonchi. CARDIAC: Regular rate and rhythm. S1 and S2, without murmurs, gallops, or rubs. VASCULAR: No Edema. Peripheral pulses normal and equal in all extremities. ABDOMEN: Soft, tender to palpation no sign of distention. No rebound or guarding, and no masses palpated. Bowel Sounds normal. MUSCULOSKELETAL: Good range of motion of all major joints. Extremities without clubbing, cyanosis or edema. NEUROLOGIC EXAM: Alert and oriented x 3. No focal sensory or strength deficits. Speech normal. Follows commands. PSYCHIATRIC: Mood normal. SKIN: No rash or lesions. - Constitutional Vitals: Temp Pulse Resp BP Pulse Ox 97.9 F 84 15 101/56 98 01/21/18 16:00 01/21/18 18:37 01/21/18 18:37 01/21/18 18:37 01/21/18 18:37 General appearance: Present: mild distress Results - Labs CBC & Chem 7: 01/22/18 03:27 01/22/18 03:27 Labs: Laboratory Last Values WBC 10.3 K/mm3 (4.5-11.0) 01/21/18 Unknown RBC 4.53 M/mm3 (3.65-5.03) 01/21/18 Unknown Hgb 13.6 gm/dl (11.8-15.2) 01/21/18 Unknown Hct 40.7 % (35.5-45.6) 01/21/18 Unknown MCV 90 fl (84-94) 01/21/18 Unknown MCH 30 pg (28-32) 01/21/18 Unknown MCHC 33 % (32-34) 01/21/18 Unknown RDW 13.6 % (13.2-15.2) 01/21/18 Unknown Plt Count 263 K/mm3 (140-440) 01/21/18 Unknown Lymph % (Auto) 9.2 % (13.4-35.0) L 01/21/18 Unknown Roberts % (Auto) 7.1 % (0.0-7.3) 01/21/18 Unknown Eos % (Auto) 0.0 % (0.0-4.3) 01/21/18 Unknown Baso % (Auto) 1.3 % (0.0-1.8) 01/21/18 Unknown Lymph # 1.0 K/mm3 (1.2-5.4) L 01/21/18 Unknown Roberts # 0.7 K/mm3 (0.0-0.8) 01/21/18 Unknown Eos # 0.0 K/mm3 (0.0-0.4) 01/21/18 Unknown Baso # 0.1 K/mm3 (0.0-0.1) 01/21/18 Unknown Add Manual Diff Complete 01/20/18 09:09 Total Counted 100 01/20/18 09:09 Seg Neutrophils % 82.4 % (40.0-70.0) H 01/21/18 Unknown Seg Neuts % (Manual) 92.0 % (40.0-70.0) H 01/20/18 09:09 Band Neutrophils % 0 % 01/20/18 09:09 Lymphocytes % (Manual) 2.0 % (13.4-35.0) L 01/20/18 09:09 Reactive Lymphs % (Man) 0 % 01/20/18 09:09 Monocytes % (Manual) 6.0 % (0.0-7.3) 01/20/18 09:09 Eosinophils % (Manual) 0 % (0.0-4.3) 01/20/18 09:09 Basophils % (Manual) 0 % (0.0-1.8) 01/20/18 09:09 Metamyelocytes % 0 % 01/20/18 09:09 Myelocytes % 0 % 01/20/18 09:09 Promyelocytes % 0 % 01/20/18 09:09 Blast Cells % 0 % 01/20/18 09:09 Nucleated RBC % Not Reportable 01/20/18 09:09 Seg Neutrophils # 8.5 K/mm3 (1.8-7.7) H 01/21/18 Unknown Seg Neutrophils # Man 11.7 K/mm3 (1.8-7.7) H 01/20/18 09:09 Band Neutrophils # 0.0 K/mm3 01/20/18 09:09 Lymphocytes # (Manual) 0.3 K/mm3 (1.2-5.4) L 01/20/18 09:09 Abs React Lymphs (Man) 0.0 K/mm3 01/20/18 09:09 Monocytes # (Manual) 0.8 K/mm3 (0.0-0.8) 01/20/18 09:09 Eosinophils # (Manual) 0.0 K/mm3 (0.0-0.4) 01/20/18 09:09 Basophils # (Manual) 0.0 K/mm3 (0.0-0.1) 01/20/18 09:09 Metamyelocytes # 0.0 K/mm3 01/20/18 09:09 Myelocytes # 0.0 K/mm3 01/20/18 09:09 Promyelocytes # 0.0 K/mm3 01/20/18 09:09 Blast Cells # 0.0 K/mm3 01/20/18 09:09 WBC Morphology Not Reportable 01/20/18 09:09 Hypersegmented Neuts Not Reportable 01/20/18 09:09 Hyposegmented Neuts Not Reportable 01/20/18 09:09 Hypogranular Neuts Not Reportable 01/20/18 09:09 Smudge Cells Not Reportable 01/20/18 09:09 Toxic Granulation 1+ 01/20/18 09:09 Toxic Vacuolation Not Reportable 01/20/18 09:09 Dohle Bodies Not Reportable 01/20/18 09:09 Pelger-Huet Anomaly Not Reportable 01/20/18 09:09 Tiara Rods Not Reportable 01/20/18 09:09 Platelet Estimate Cons 01/20/18 09:09 Clumped Platelets Not Reportable 01/20/18 09:09 Plt Clumps, EDTA Not Reportable 01/20/18 09:09 Large Platelets Not Reportable 01/20/18 09:09 Giant Platelets Not Reportable 01/20/18 09:09 Platelet Satelliting Not Reportable 01/20/18 09:09 Plt Morphology Comment Not Reportable 01/20/18 09:09 RBC Morphology Normal 01/20/18 09:09 Dimorphic RBCs Not Reportable 01/20/18 09:09 Polychromasia Not Reportable 01/20/18 09:09 Hypochromasia Not Reportable 01/20/18 09:09 Poikilocytosis Not Reportable 01/20/18 09:09 Anisocytosis Not Reportable 01/20/18 09:09 Microcytosis Not Reportable 01/20/18 09:09 Macrocytosis Not Reportable 01/20/18 09:09 Spherocytes Not Reportable 01/20/18 09:09 Pappenheimer Bodies Not Reportable 01/20/18 09:09 Sickle Cells Not Reportable 01/20/18 09:09 Target Cells Not Reportable 01/20/18 09:09 Tear Drop Cells Not Reportable 01/20/18 09:09 Ovalocytes Not Reportable 01/20/18 09:09 Helmet Cells Not Reportable 01/20/18 09:09 Estrella-Olancha Bodies Not Reportable 01/20/18 09:09 [place] Rings Not Reportable 01/20/18 09:09 Leslie Cells Not Reportable 01/20/18 09:09 Bite Cells Not Reportable 01/20/18 09:09 Crenated Cell Not Reportable 01/20/18 09:09 Elliptocytes Not Reportable 01/20/18 09:09 Acanthocytes (Spur) Not Reportable 01/20/18 09:09 Rouleaux Not Reportable 01/20/18 09:09 Hemoglobin C Crystals Not Reportable 01/20/18 09:09 Schistocytes Not Reportable 01/20/18 09:09 Malaria parasites Not Reportable 01/20/18 09:09 Pradeep Bodies Not Reportable 01/20/18 09:09 Hem Pathologist Commnt No 01/20/18 09:09 Sodium 143 mmol/L (137-145) 01/21/18 Unknown Potassium 3.4 mmol/L (3.6-5.0) L 01/21/18 Unknown Chloride 105.9 mmol/L (98-107) 01/21/18 Unknown Carbon Dioxide 20 mmol/L (22-30) L 01/21/18 Unknown Anion Gap 21 mmol/L 01/21/18 Unknown BUN 16 mg/dL (9-20) 01/21/18 Unknown Creatinine 1.0 mg/dL (0.8-1.5) 01/21/18 Unknown Estimated GFR > 60 ml/min 01/21/18 Unknown BUN/Creatinine Ratio 16 % 01/21/18 Unknown Glucose 161 mg/dL (75-100) H 01/21/18 Unknown POC Glucose 190 (70-105) H 01/21/18 18:02 Hemoglobin A1c 15.7 % (4-6) H 01/20/18 09:05 Osmolality 343 Mosm/kg 01/20/18 09:05 Lactic Acid 1.50 mmol/L (0.7-2.0) 01/21/18 Unknown Calcium 8.7 mg/dL (8.4-10.2) 01/21/18 Unknown Phosphorus 3.20 mg/dL (2.5-4.5) D 01/20/18 10:20 Magnesium 2.70 mg/dL (1.7-2.3) H 01/20/18 10:20 Total Bilirubin 1.10 mg/dL (0.1-1.2) 01/20/18 09:05 AST 17 units/L (5-40) 01/20/18 09:05 ALT 19 units/L (7-56) 01/20/18 09:05 Alkaline Phosphatase 96 units/L (35-129) 01/20/18 09:05 Total Creatine Kinase 226 units/L (55-170) H 01/21/18 03:47 CK-MB (CK-2) 2.3 ng/mL (0.0-4.0) 01/21/18 03:47 CK-MB (CK-2) Rel Index 1.0 (0-4) 01/21/18 03:47 Troponin T < 0.010 ng/mL (0.00-0.029) 01/21/18 03:47 Total Protein 8.3 g/dL (6.3-8.2) H 01/20/18 09:05 Albumin 4.9 g/dL (3.9-5) 01/20/18 09:05 Albumin/Globulin Ratio 1.4 % 01/20/18 09:05 Triglycerides 99 mg/dL (2-149) 01/20/18 09:05 Cholesterol 312 mg/dL (50-199) H 01/20/18 09:05 LDL Cholesterol Direct 176 mg/dL (50-130) H 01/20/18 09:05 HDL Cholesterol 156 mg/dL (40-59) H 01/20/18 09:05 Cholesterol/HDL Ratio 2.00 % 01/20/18 09:05 Lipase 10 units/L (13-60) L 01/20/18 09:05 Urine Opiates Screen Presumptive negative 01/21/18 17:08 Urine Methadone Screen Presumptive negative 01/21/18 17:08 Ur Barbiturates Screen Presumptive negative 01/21/18 17:08 Ur Phencyclidine Scrn Presumptive negative 01/21/18 17:08 Ur Amphetamines Screen Presumptive negative 01/21/18 17:08 U Benzodiazepines Scrn Presumptive negative 01/21/18 17:08 Urine Cocaine Screen Presumptive positive 01/21/18 17:08 U Marijuana (THC) Screen Presumptive positive 01/21/18 17:08 Drugs of Abuse Note Disclamer 01/21/18 17:08 Plasma/Serum Alcohol < 0.01 % (0-0.07) 01/20/18 09:21
[2018-01-21] MEDS: COREG PO SCH (22:23)
[2018-01-21] MEDS: SODIUM CHLORIDE FLUSH SYRINGE 10 ML IV SCH (22:29)
[2018-01-22] MEDS: HumaLOG SUB-Q SCH ×4 (00:31→17:10)
--- NOTE | 2018-01-22 02:57 | Consultation ---
HISTORY OF PRESENT ILLNESS: This is a 52-year-old gentleman, who is not very cooperative, appears to be somewhat upset and with agitated affect, who presents with diabetes out of control, urinary retention, distended bladder, abdominal pain. He initially refused the catheter. He says there has been some difficulty in the past when they placed the catheter. His creatinine is 1.2 to 1.3. He has a distended bladder on CT scan. PAST MEDICAL HISTORY: Cardiomyopathy, acidosis. PAST SURGICAL HISTORY: surgery denied. MEDICATIONS: He is on insulin, potassium, Lovenox, Pepcid. FAMILY HISTORY: Noncontributory. ALLERGIES: Negative. REVIEW OF SYSTEMS: He has abdominal pain, diminished urinary flow. PHYSICAL EXAMINATION: GENERAL: He is awake. He is not very cooperative. He seems a little bit lethargic, may be because of the morphine. He is in no distress, but some discomfort. ABDOMEN: Soft and complaining of tenderness in the lower abdomen and left side. GENITALIA: Circumcised testes bilaterally. No hernias. Digital rectal exam, he is not very compliant to anything, so we did not get to do that. PROCEDURE: A #14 coude was placed using lidocaine gel tolerated well. Urine is clear. PLAN: Per ICU, Cardiology and Internal Medicine. He can see us as an outpatient. JOB# [id number] CRISTI/YOLANDA
[2018-01-22] MEDS ORDERED: PERCOCET 5/325 PO ONE (04:07)
[2018-01-22] MEDS: D5W/0.45% NACL/KCL 20 MEQ 20 MEQ/1,000 ML BAG IV SCH (04:48)
[2018-01-22 05:03] LABS: Hematocrit 34.1 % (35.5-45.6); Hemoglobin 11.2 gm/dl (11.8-15.2); Mean Corpuscular HGB Conc 33 % (32-34); Mean Corpuscular Hemoglobin 30 pg (28-32); Mean Corpuscular Volume 91 fl (84-94); Platelet Count 213 K/mm3 (140-440); Red Blood Count 3.75 M/mm3 (3.65-5.03); Red Cell Distribution Width 13.7 % (13.2-15.2)
[2018-01-22 05:31] LABS: BUN/Creatinine Ratio 13; Blood Urea Nitrogen 10 mg/dL (9-20); Calcium 7.4 mg/dL (8.4-10.2); Hemolysis Index 8
--- NOTE | 2018-01-22 06:55 | Ultrasound Report ---
FINAL REPORT PROCEDURE: US RENAL BILAT TECHNIQUE: Real-time sonography in multiple planes of the kidneys, ureters and urinary bladder was performed with image documentation. CPT 04770 HISTORY: URINARY BLADDER OUTLET OBSTRUCTION COMPARISON: No prior studies are available for comparison. FINDINGS: RIGHT kidney: Normal echotexture. No focal renal mass, calculus, or hydronephrosis. Length: 11.5 cm. LEFT kidney: Normal echotexture. No focal renal mass, calculus, or hydronephrosis. Length: 11cm. Bladder: There is a Griggs catheter in the urinary bladder.. IMPRESSION: Normal Examination.
--- NOTE | 2018-01-22 08:32 | Progress Note ---
Subjective Date of service: 01/22/18 Principal diagnosis: DKA; Severe Abdominal Pain; Intractable N&V; Severe Bladder Distension Interval history: will review the EEG from today neuro exam c/w encephalopathy diabetic doubt stroke or active seizures Objective - Vital Sign Vital Signs - 12hr 01/21/18 01/21/18 01/21/18 20:45 21:00 21:15 Temperature Pulse Rate 78 81 79 Pulse Rate [ From Monitor] Respiratory 10 L 13 13 Rate Blood Pressure 99/64 103/63 94/61 O2 Sat by Pulse 99 99 98 Oximetry 01/21/18 01/21/18 01/21/18 21:30 21:45 22:00 Temperature Pulse Rate 80 85 80 Pulse Rate [ From Monitor] Respiratory 13 12 14 Rate Blood Pressure 88/52 105/54 95/54 O2 Sat by Pulse 97 98 96 Oximetry 01/21/18 01/21/18 01/21/18 22:15 22:23 22:30 Temperature Pulse Rate 80 79 82 Pulse Rate [ From Monitor] Respiratory 10 L 10 L Rate Blood Pressure 92/52 92/52 98/58 O2 Sat by Pulse 97 100 Oximetry 01/21/18 01/21/18 01/21/18 22:45 23:01 23:15 Temperature Pulse Rate 75 73 74 Pulse Rate [ From Monitor] Respiratory 16 11 L 12 Rate Blood Pressure 88/45 77/35 85/32 O2 Sat by Pulse 96 97 99 Oximetry 01/21/18 01/21/18 01/21/18 23:30 23:45 23:55 Temperature Pulse Rate 72 73 71 Pulse Rate [ From Monitor] Respiratory 15 13 11 L Rate Blood Pressure 86/44 88/45 88/45 O2 Sat by Pulse 97 98 98 Oximetry 01/22/18 01/22/18 01/22/18 00:00 00:15 00:21 Temperature 98.1 F Pulse Rate 72 73 72 Pulse Rate [ 71 From Monitor] Respiratory 11 L 12 13 Rate Blood Pressure 90/45 96/45 96/45 O2 Sat by Pulse 99 97 99 Oximetry 01/22/18 01/22/18 01/22/18 00:30 00:45 01:00 Temperature Pulse Rate 76 70 69 Pulse Rate [ From Monitor] Respiratory 12 11 L 10 L Rate Blood Pressure 101/50 89/47 91/50 O2 Sat by Pulse 99 99 100 Oximetry 01/22/18 01/22/1818 01:15 02:00 03:00 Temperature Pulse Rate 69 72 66 Pulse Rate [ From Monitor] Respiratory 10 L 11 L 11 L Rate Blood Pressure 91/50 86/52 90/56 O2 Sat by Pulse 99 98 100 Oximetry 01/22/18 01/22/18 01/22/18 04:00 04:01 05:00 Temperature 97.5 F L Pulse Rate 76 67 Pulse Rate [ 69 From Monitor] Respiratory 16 9 L 9 L Rate Blood Pressure 122/75 99/64 O2 Sat by Pulse 99 99 99 Oximetry 01/22/18 01/22/18 01/22/18 06:00 07:00 08:00 Temperature 98.2 F Pulse Rate 71 77 82 Pulse Rate [ From Monitor] Respiratory 10 L 11 L 11 L Rate Blood Pressure 90/49 94/50 98/56 O2 Sat by Pulse 100 98 100 Oximetry - Laboratory Findings CBC and BMP: 01/22/18 03:27 01/22/18 03:27 Abnormal Lab Findings: Abnormal Labs 01/20/18 01/20/18 01/20/18 09:05 09:05 09:05 WBC Hgb Hct Lymph % (Auto) Lymph # Seg Neutrophils % Seg Neuts % (Manual) Lymphocytes % (Manual) Seg Neutrophils # Seg Neutrophils # Man Lymphocytes # (Manual) Sodium Potassium Chloride 89.7 L Carbon Dioxide 18 L BUN 28 H Glucose 497 H POC Glucose Hemoglobin A1c 15.7 H Calcium Phosphorus Magnesium Total Creatine Kinase 186 H Total Protein 8.3 H Cholesterol LDL Cholesterol Direct HDL Cholesterol Lipase 10 L 01/20/18 01/20/18 01/20/18 09:05 09:09 09:23 WBC 12.7 H Hgb Hct Lymph % (Auto) Lymph # Seg Neutrophils % Seg Neuts % (Manual) 92.0 H Lymphocytes % (Manual) 2.0 L Seg Neutrophils # Seg Neutrophils # Man 11.7 H Lymphocytes # (Manual) 0.3 L Sodium Potassium Chloride Carbon Dioxide BUN Glucose POC Glucose 394 H Hemoglobin A1c Calcium Phosphorus 4.80 H Magnesium 2.50 H Total Creatine Kinase Total Protein Cholesterol 312 H LDL Cholesterol Direct 176 H HDL Cholesterol 156 H Lipase 01/20/18 01/20/18 01/20/18 10:20 10:20 10:20 WBC Hgb Hct Lymph % (Auto) Lymph # Seg Neutrophils % Seg Neuts % (Manual) Lymphocytes % (Manual) Seg Neutrophils # Seg Neutrophils # Man Lymphocytes # (Manual) Sodium 146 H D Potassium Chloride Carbon Dioxide BUN 27 H Glucose 316 H POC Glucose 331 H Hemoglobin A1c Calcium Phosphorus Magnesium 2.70 H Total Creatine Kinase Total Protein Cholesterol LDL Cholesterol Direct HDL Cholesterol Lipase 01/20/18 01/20/18 01/20/18 11:28 12:05 13:01 WBC Hgb Hct Lymph % (Auto) Lymph # Seg Neutrophils % Seg Neuts % (Manual) Lymphocytes % (Manual) Seg Neutrophils # Seg Neutrophils # Man Lymphocytes # (Manual) Sodium 149 H Potassium Chloride Carbon Dioxide 20 L BUN 26 H Glucose 268 H POC Glucose 293 H 241 H Hemoglobin A1c Calcium Phosphorus Magnesium Total Creatine Kinase Total Protein Cholesterol LDL Cholesterol Direct HDL Cholesterol Lipase 01/20/18 01/20/18 01/20/18 14:36 16:15 16:15 WBC Hgb Hct Lymph % (Auto) Lymph # Seg Neutrophils % Seg Neuts % (Manual) Lymphocytes % (Manual) Seg Neutrophils # Seg Neutrophils # Man Lymphocytes # (Manual) Sodium Potassium Chloride Carbon Dioxide 21 L BUN 25 H Glucose 294 H POC Glucose 277 H 267 H Hemoglobin A1c Calcium Phosphorus Magnesium Total Creatine Kinase Total Protein Cholesterol LDL Cholesterol Direct HDL Cholesterol Lipase 01/20/18 01/20/18 01/20/18 17:25 18:19 19:18 WBC Hgb Hct Lymph % (Auto) Lymph # Seg Neutrophils % Seg Neuts % (Manual) Lymphocytes % (Manual) Seg Neutrophils # Seg Neutrophils # Man Lymphocytes # (Manual) Sodium Potassium Chloride Carbon Dioxide BUN Glucose POC Glucose 257 H 264 H 221 H Hemoglobin A1c Calcium Phosphorus Magnesium Total Creatine Kinase Total Protein Cholesterol LDL Cholesterol Direct HDL Cholesterol Lipase 01/20/18 01/20/18 01/20/18 20:02 20:02 21:00 WBC Hgb Hct Lymph % (Auto) Lymph # Seg Neutrophils % Seg Neuts % (Manual) Lymphocytes % (Manual) Seg Neutrophils # Seg Neutrophils # Man Lymphocytes # (Manual) Sodium 148 H Potassium Chloride 107.3 H Carbon Dioxide BUN 27 H Glucose 202 H POC Glucose 190 H 189 H Hemoglobin A1c Calcium Phosphorus Magnesium Total Creatine Kinase Total Protein Cholesterol LDL Cholesterol Direct HDL Cholesterol Lipase 01/20/18 01/20/18 01/21/18 21:56 23:01 00:03 WBC Hgb Hct Lymph % (Auto) Lymph # Seg Neutrophils % Seg Neuts % (Manual) Lymphocytes % (Manual) Seg Neutrophils # Seg Neutrophils # Man Lymphocytes # (Manual) Sodium Potassium Chloride Carbon Dioxide BUN Glucose POC Glucose 163 H 156 H 159 H Hemoglobin A1c Calcium Phosphorus Magnesium Total Creatine Kinase Total Protein Cholesterol LDL Cholesterol Direct HDL Cholesterol Lipase 01/21/18 01/21/18 01/21/18 01:06 01:57 03:04 WBC Hgb Hct Lymph % (Auto) Lymph # Seg Neutrophils % Seg Neuts % (Manual) Lymphocytes % (Manual) Seg Neutrophils # Seg Neutrophils # Man Lymphocytes # (Manual) Sodium Potassium Chloride Carbon Dioxide BUN Glucose POC Glucose 149 H 147 H 169 H Hemoglobin A1c Calcium Phosphorus Magnesium Total Creatine Kinase Total Protein Cholesterol LDL Cholesterol Direct HDL Cholesterol Lipase 01/21/18 01/21/18 01/21/18 03:47 03:47 03:50 WBC Hgb Hct Lymph % (Auto) Lymph # Seg Neutrophils % Seg Neuts % (Manual) Lymphocytes % (Manual) Seg Neutrophils # Seg Neutrophils # Man Lymphocytes # (Manual) Sodium Potassium Chloride 109.4 H Carbon Dioxide BUN 21 H Glucose 165 H POC Glucose 159 H Hemoglobin A1c Calcium 8.3 L Phosphorus Magnesium Total Creatine Kinase 226 H Total Protein Cholesterol LDL Cholesterol Direct HDL Cholesterol Lipase 01/21/18 01/21/18 01/21/18 05:05 06:09 06:35 WBC Hgb Hct Lymph % (Auto) Lymph # Seg Neutrophils % Seg Neuts % (Manual) Lymphocytes % (Manual) Seg Neutrophils # Seg Neutrophils # Man Lymphocytes # (Manual) Sodium Potassium Chloride Carbon Dioxide BUN Glucose POC Glucose 166 H 172 H 181 H Hemoglobin A1c Calcium Phosphorus Magnesium Total Creatine Kinase Total Protein Cholesterol LDL Cholesterol Direct HDL Cholesterol Lipase 01/21/18 01/21/18 01/21/18 07:43 08:55 10:15 WBC Hgb Hct Lymph % (Auto) Lymph # Seg Neutrophils % Seg Neuts % (Manual) Lymphocytes % (Manual) Seg Neutrophils # Seg Neutrophils # Man Lymphocytes # (Manual) Sodium Potassium Chloride Carbon Dioxide BUN Glucose POC Glucose 182 H 137 H 166 H Hemoglobin A1c Calcium Phosphorus Magnesium Total Creatine Kinase Total Protein Cholesterol LDL Cholesterol Direct HDL Cholesterol Lipase 01/21/18 01/21/18 01/21/18 10:55 12:24 18:02 WBC Hgb Hct Lymph % (Auto) Lymph # Seg Neutrophils % Seg Neuts % (Manual) Lymphocytes % (Manual) Seg Neutrophils # Seg Neutrophils # Man Lymphocytes # (Manual) Sodium Potassium Chloride Carbon Dioxide BUN Glucose POC Glucose 176 H 166 H 190 H Hemoglobin A1c Calcium Phosphorus Magnesium Total Creatine Kinase Total Protein Cholesterol LDL Cholesterol Direct HDL Cholesterol Lipase 01/21/18 01/21/18 01/22/18 Unknown Unknown 00:28 WBC Hgb Hct Lymph % (Auto) 9.2 L Lymph # 1.0 L Seg Neutrophils % 82.4 H Seg Neuts % (Manual) Lymphocytes % (Manual) Seg Neutrophils # 8.5 H Seg Neutrophils # Man Lymphocytes # (Manual) Sodium Potassium 3.4 L Chloride Carbon Dioxide 20 L BUN Glucose 161 H POC Glucose 55 L Hemoglobin A1c Calcium Phosphorus Magnesium Total Creatine Kinase Total Protein Cholesterol LDL Cholesterol Direct HDL Cholesterol Lipase 01/22/18 01/22/18 01/22/18 00:47 03:27 03:27 WBC Hgb 11.2 L Hct 34.1 L D Lymph % (Auto) Lymph # Seg Neutrophils % Seg Neuts % (Manual) Lymphocytes % (Manual) Seg Neutrophils # Seg Neutrophils # Man Lymphocytes # (Manual) Sodium Potassium 3.2 L Chloride 107.2 H Carbon Dioxide BUN Glucose 128 H POC Glucose 118 H Hemoglobin A1c Calcium 7.4 L Phosphorus Magnesium Total Creatine Kinase Total Protein Cholesterol LDL Cholesterol Direct HDL Cholesterol Lipase 01/22/18 01/22/18 04:00 06:08 WBC Hgb Hct Lymph % (Auto) Lymph # Seg Neutrophils % Seg Neuts % (Manual) Lymphocytes % (Manual) Seg Neutrophils # Seg Neutrophils # Man Lymphocytes # (Manual) Sodium Potassium Chloride Carbon Dioxide BUN Glucose POC Glucose 147 H 182 H Hemoglobin A1c Calcium Phosphorus Magnesium Total Creatine Kinase Total Protein Cholesterol LDL Cholesterol Direct HDL Cholesterol Lipase
--- NOTE | 2018-01-22 09:20 | Progress Note ---
Assessment and Plan PPM interrogation showed some bouts of ST v. SVT, no apparent arrhythmia associated with syncopal episode. Cont home coreg as tolerated. Await echo. Replete K+. Neuro and GI recs noted. Currently stable cardiac status. Pt may tx out of ICU to telemetry from cardiology standpoint. The patient has been seen in conjunction with Dr. Cesar who agrees with the assessment and plan of care. - Patient Problems (1) Syncope Current Visit: Yes Status: Acute (2) Altered mental status Current Visit: Yes Status: Acute (3) Abdominal pain Current Visit: Yes Status: Acute (4) Nausea and vomiting Current Visit: Yes Status: Acute (5) Diabetes mellitus with hyperglycemia Current Visit: Yes Status: Acute (6) HTN (hypertension) Current Visit: Yes Status: Chronic (7) History of cardiomyopathy Current Visit: Yes Status: Chronic (8) Cardiac pacemaker in situ Current Visit: Yes Status: Chronic (9) Medical non-compliance Current Visit: Yes Status: Chronic (10) Urinary retention Current Visit: Yes Status: Acute (11) Cocaine use Current Visit: Yes Status: Acute Subjective Date of service: 01/22/18 Principal diagnosis: DKA; Severe Abdominal Pain; Intractable N&V; Severe Bladder Distension Interval history: pt resting in bed, states he is feeling much better today. had a catheter placed yesterday per urology. Objective Last Vital Signs Temp 98.2 F 01/22/18 08:00 Pulse 73 01/22/18 08:00 Resp 14 01/22/18 08:00 BP 98/56 01/22/18 08:00 Pulse Ox 100 01/22/18 08:00 - Physical Examination General: No Apparent Distress HEENT: Positive: PERRL Neck: Positive: neck supple, trachea midline Cardiac: Positive: Reg Rate and Rhythm, S1/S2 Lungs: Positive: clear to auscultation Neuro: Positive: Grossly Intact Abdomen: Positive: Soft. Negative: Tender Skin: Negative: Rash, Wound Musculoskeletal: No Pain Extremities: Absent: edema - Labs and Meds CBC 01/21/18 01/22/18 Range/Units Unknown 03:27 WBC 10.3 5.0 (4.5-11.0) K/mm3 RBC 4.53 3.75 (3.65-5.03) M/mm3 Hgb 13.6 11.2 L (11.8-15.2) gm/dl Hct 40.7 34.1 L D (35.5-45.6) % Plt Count 263 213 (140-440) K/mm3 Lymph # 1.0 L (1.2-5.4) K/mm3 [place] # 0.7 (0.0-0.8) K/mm3 Eos # 0.0 (0.0-0.4) K/mm3 Baso # 0.1 (0.0-0.1) K/mm3 Comprehensive Metabolic Panel 01/21/18 01/22/18 Range/Units Unknown 03:27 Sodium 143 138 (137-145) mmol/L Potassium 3.4 L 3.2 L (3.6-5.0) mmol/L Chloride 105.9 107.2 H (98-107) mmol/L Carbon Dioxide 20 L 22 (22-30) mmol/L BUN 16 10 (9-20) mg/dL Creatinine 1.0 0.8 (0.8-1.5) mg/dL Glucose 161 H 128 H (75-100) mg/dL Calcium 8.7 7.4 L (8.4-10.2) mg/dL - Imaging and Cardiology EKG: pending Echo: pending, report reviewed (09/2016 showed EF 30-35%, mod reduced RV systolic function. ) - EKG Sinus rhythms and dysrhythmias: sinus rhythm
[2018-01-22] MEDS ORDERED: PROTONIX IV SCH (10:00)
[2018-01-22] MEDS ORDERED: K-DUR PO ONE (10:00)
[2018-01-22] MEDS: COREG PO SCH (10:14)
[2018-01-22] MEDS: SODIUM CHLORIDE FLUSH SYRINGE 10 ML IV SCH (10:14)
[2018-01-22] MEDS: LOVENOX SUB-Q SCH (10:16)
--- NOTE | 2018-01-22 10:23 | Progress Note ---
Assessment and Plan DKA Leukocytosis Metabolic Acidosis Uncontrolled DM cardiomyopathy s/p PPM Abdominal pain with peritoneal irration Bladder Dis Hydronephrosistension Ostructive Uropathy - prn analgesia - continue home 7030 - continue SSI with accuchecks qac & qhs - continue GI & VTE prophylaxis - flu & pneumovax per protocol - outpatient f/up with urologist - Flu and pneumovax addressed per protocol .... transfer to [facility] Subjective Date of service: 01/22/18 Principal diagnosis: DKA; Severe Abdominal Pain; Intractable N&V; Severe Bladder Distension Interval history: Patient is seen today for: DKA; Severe Abdominal Pain; Intractable N&V; Severe Bladder Distension Seen and examined at bedside; 24hour events reviewed; nursing and respiratory care staff consulted; no adverse overnight events reported to me; seen by urology and ortega catheter placed; feels better; no active abdominal pain; No N/ V/F/C; also seen by cardiology and PPM interogated Objective Vital Signs - 12hr 01/21/18 01/21/18 01/21/18 22:23 22:30 22:45 Temperature Pulse Rate 79 82 75 Pulse Rate [ From Monitor] Respiratory 10 L 16 Rate Blood Pressure 92/52 98/58 88/45 O2 Sat by Pulse 100 96 Oximetry 01/21/18 01/21/18 01/21/18 23:01 23:15 23:30 Temperature Pulse Rate 73 74 72 Pulse Rate [ From Monitor] Respiratory 11 L 12 15 Rate Blood Pressure 77/35 85/32 86/44 O2 Sat by Pulse 97 99 97 Oximetry 01/21/18 01/21/18 01/22/18 23:45 23:55 00:00 Temperature 98.1 F Pulse Rate 73 71 72 Pulse Rate [ 71 From Monitor] Respiratory 13 11 L 11 L Rate Blood Pressure 88/45 88/45 90/45 O2 Sat by Pulse 98 98 99 Oximetry 01/22/18 01/22/18 01/22/18 00:15 00:21 00:30 Temperature Pulse Rate 73 72 76 Pulse Rate [ From Monitor] Respiratory 12 13 12 Rate Blood Pressure 96/45 96/45 101/50 O2 Sat by Pulse 97 99 99 Oximetry 01/22/18 01/22/18 01/22/18 00:45 01:00 01:15 Temperature Pulse Rate 70 69 69 Pulse Rate [ From Monitor] Respiratory 11 L 10 L 10 L Rate Blood Pressure 89/47 91/50 91/50 O2 Sat by Pulse 99 100 99 Oximetry 01/22/18 01/22/18 01/22/18 02:00 03:00 04:00 Temperature 97.5 F L Pulse Rate 72 66 Pulse Rate [ 69 From Monitor] Respiratory 11 L 11 L 16 Rate Blood Pressure 86/52 90/56 O2 Sat by Pulse 98 100 99 Oximetry 01/22/18 01/22/18 01/22/18 04:01 05:00 06:00 Temperature Pulse Rate 76 67 71 Pulse Rate [ From Monitor] Respiratory 9 L 9 L 10 L Rate Blood Pressure 122/75 99/64 90/49 O2 Sat by Pulse 99 99 100 Oximetry 01/22/18 01/22/18 01/22/18 07:00 08:00 10:14 Temperature 98.2 F Pulse Rate 77 82 75 Pulse Rate [ 73 From Monitor] Respiratory 11 L 11 L Rate Blood Pressure 94/50 98/56 99/56 O2 Sat by Pulse 98 100 Oximetry Constitutional: appears uncomfortable, other (middle aged AAM, normocephalic and atraumatic) Eyes: non-icteric ENT: oropharynx moist Neck: supple, no lymphadenopathy, no JVD Effort: mildly labored Ascultation: Bilateral: clear Percussion: Bilateral: not dull Cardiovascular: regular rate and rhythm, other (No R/M) Gastrointestinal: hypoactive bowel sounds, soft, tender, other (No HSM; + suprapubic tenderness) Integumentary: normal Extremities: no cyanosis, no edema, pulses normal, no ischemia or petechiae Neurologic: normal mental status, non-focal exam, pupils equal and round, motor strength normal and Psychiatric: anxious CBC and BMP: 01/22/18 03:27 01/23/18 08:40 Abnormal lab findings: Abnormal Labs 01/20/18 01/20/18 01/20/18 09:05 09:05 09:05 WBC Hgb Hct Lymph % (Auto) Lymph # Seg Neutrophils % Seg Neuts % (Manual) Lymphocytes % (Manual) Seg Neutrophils # Seg Neutrophils # Man Lymphocytes # (Manual) Sodium Potassium Chloride 89.7 L Carbon Dioxide 18 L BUN 28 H Glucose 497 H POC Glucose Hemoglobin A1c 15.7 H Calcium Phosphorus Magnesium Total Creatine Kinase 186 H Total Protein 8.3 H Cholesterol LDL Cholesterol Direct HDL Cholesterol Lipase 10 L 01/20/18 01/20/18 01/20/18 09:05 09:09 09:23 WBC 12.7 H Hgb Hct Lymph % (Auto) Lymph # Seg Neutrophils % Seg Neuts % (Manual) 92.0 H Lymphocytes % (Manual) 2.0 L Seg Neutrophils # Seg Neutrophils # Man 11.7 H Lymphocytes # (Manual) 0.3 L Sodium Potassium Chloride Carbon Dioxide BUN Glucose POC Glucose 394 H Hemoglobin A1c Calcium Phosphorus 4.80 H Magnesium 2.50 H Total Creatine Kinase Total Protein Cholesterol 312 H LDL Cholesterol Direct 176 H HDL Cholesterol 156 H Lipase 01/20/18 01/20/18 01/20/18 10:20 10:20 10:20 WBC Hgb Hct Lymph % (Auto) Lymph # Seg Neutrophils % Seg Neuts % (Manual) Lymphocytes % (Manual) Seg Neutrophils # Seg Neutrophils # Man Lymphocytes # (Manual) Sodium 146 H D Potassium Chloride Carbon Dioxide BUN 27 H Glucose 316 H POC Glucose 331 H Hemoglobin A1c Calcium Phosphorus Magnesium 2.70 H Total Creatine Kinase Total Protein Cholesterol LDL Cholesterol Direct HDL Cholesterol Lipase 01/20/18 01/20/18 01/20/18 11:28 12:05 13:01 WBC Hgb Hct Lymph % (Auto) Lymph # Seg Neutrophils % Seg Neuts % (Manual) Lymphocytes % (Manual) Seg Neutrophils # Seg Neutrophils # Man Lymphocytes # (Manual) Sodium 149 H Potassium Chloride Carbon Dioxide 20 L BUN 26 H Glucose 268 H POC Glucose 293 H 241 H Hemoglobin A1c Calcium Phosphorus Magnesium Total Creatine Kinase Total Protein Cholesterol LDL Cholesterol Direct HDL Cholesterol Lipase 01/20/18 01/20/18 01/20/18 14:36 16:15 16:15 WBC Hgb Hct Lymph % (Auto) Lymph # Seg Neutrophils % Seg Neuts % (Manual) Lymphocytes % (Manual) Seg Neutrophils # Seg Neutrophils # Man Lymphocytes # (Manual) Sodium Potassium Chloride Carbon Dioxide 21 L BUN 25 H Glucose 294 H POC Glucose 277 H 267 H Hemoglobin A1c Calcium Phosphorus Magnesium Total Creatine Kinase Total Protein Cholesterol LDL Cholesterol Direct HDL Cholesterol Lipase 01/20/18 01/20/18 01/20/18 17:25 18:19 19:18 WBC Hgb Hct Lymph % (Auto) Lymph # Seg Neutrophils % Seg Neuts % (Manual) Lymphocytes % (Manual) Seg Neutrophils # Seg Neutrophils # Man Lymphocytes # (Manual) Sodium Potassium Chloride Carbon Dioxide BUN Glucose POC Glucose 257 H 264 H 221 H Hemoglobin A1c Calcium Phosphorus Magnesium Total Creatine Kinase Total Protein Cholesterol LDL Cholesterol Direct HDL Cholesterol Lipase 01/20/18 01/20/18 01/20/18 20:02 20:02 21:00 WBC Hgb Hct Lymph % (Auto) Lymph # Seg Neutrophils % Seg Neuts % (Manual) Lymphocytes % (Manual) Seg Neutrophils # Seg Neutrophils # Man Lymphocytes # (Manual) Sodium 148 H Potassium Chloride 107.3 H Carbon Dioxide BUN 27 H Glucose 202 H POC Glucose 190 H 189 H Hemoglobin A1c Calcium Phosphorus Magnesium Total Creatine Kinase Total Protein Cholesterol LDL Cholesterol Direct HDL Cholesterol Lipase 01/20/18 01/20/18 01/21/18 21:56 23:01 00:03 WBC Hgb Hct Lymph % (Auto) Lymph # Seg Neutrophils % Seg Neuts % (Manual) Lymphocytes % (Manual) Seg Neutrophils # Seg Neutrophils # Man Lymphocytes # (Manual) Sodium Potassium Chloride Carbon Dioxide BUN Glucose POC Glucose 163 H 156 H 159 H Hemoglobin A1c Calcium Phosphorus Magnesium Total Creatine Kinase Total Protein Cholesterol LDL Cholesterol Direct HDL Cholesterol Lipase 01/21/18 01/21/18 01/21/18 01:06 01:57 03:04 WBC Hgb Hct Lymph % (Auto) Lymph # Seg Neutrophils % Seg Neuts % (Manual) Lymphocytes % (Manual) Seg Neutrophils # Seg Neutrophils # Man Lymphocytes # (Manual) Sodium Potassium Chloride Carbon Dioxide BUN Glucose POC Glucose 149 H 147 H 169 H Hemoglobin A1c Calcium Phosphorus Magnesium Total Creatine Kinase Total Protein Cholesterol LDL Cholesterol Direct HDL Cholesterol Lipase 01/21/18 01/21/18 01/21/18 03:47 03:47 03:50 WBC Hgb Hct Lymph % (Auto) Lymph # Seg Neutrophils % Seg Neuts % (Manual) Lymphocytes % (Manual) Seg Neutrophils # Seg Neutrophils # Man Lymphocytes # (Manual) Sodium Potassium Chloride 109.4 H Carbon Dioxide BUN 21 H Glucose 165 H POC Glucose 159 H Hemoglobin A1c Calcium 8.3 L Phosphorus Magnesium Total Creatine Kinase 226 H Total Protein Cholesterol LDL Cholesterol Direct HDL Cholesterol Lipase 01/21/18 01/21/18 01/21/18 05:05 06:09 06:35 WBC Hgb Hct Lymph % (Auto) Lymph # Seg Neutrophils % Seg Neuts % (Manual) Lymphocytes % (Manual) Seg Neutrophils # Seg Neutrophils # Man Lymphocytes # (Manual) Sodium Potassium Chloride Carbon Dioxide BUN Glucose POC Glucose 166 H 172 H 181 H Hemoglobin A1c Calcium Phosphorus Magnesium Total Creatine Kinase Total Protein Cholesterol LDL Cholesterol Direct HDL Cholesterol Lipase 01/21/18 01/21/18 01/21/18 07:43 08:55 10:15 WBC Hgb Hct Lymph % (Auto) Lymph # Seg Neutrophils % Seg Neuts % (Manual) Lymphocytes % (Manual) Seg Neutrophils # Seg Neutrophils # Man Lymphocytes # (Manual) Sodium Potassium Chloride Carbon Dioxide BUN Glucose POC Glucose 182 H 137 H 166 H Hemoglobin A1c Calcium Phosphorus Magnesium Total Creatine Kinase Total Protein Cholesterol LDL Cholesterol Direct HDL Cholesterol Lipase 01/21/18 01/21/18 01/21/18 10:55 12:24 18:02 WBC Hgb Hct Lymph % (Auto) Lymph # Seg Neutrophils % Seg Neuts % (Manual) Lymphocytes % (Manual) Seg Neutrophils # Seg Neutrophils # Man Lymphocytes # (Manual) Sodium Potassium Chloride Carbon Dioxide BUN Glucose POC Glucose 176 H 166 H 190 H Hemoglobin A1c Calcium Phosphorus Magnesium Total Creatine Kinase Total Protein Cholesterol LDL Cholesterol Direct HDL Cholesterol Lipase 01/21/18 01/21/18 01/22/18 Unknown Unknown 00:28 WBC Hgb Hct Lymph % (Auto) 9.2 L Lymph # 1.0 L Seg Neutrophils % 82.4 H Seg Neuts % (Manual) Lymphocytes % (Manual) Seg Neutrophils # 8.5 H Seg Neutrophils # Man Lymphocytes # (Manual) Sodium Potassium 3.4 L Chloride Carbon Dioxide 20 L BUN Glucose 161 H POC Glucose 55 L Hemoglobin A1c Calcium Phosphorus Magnesium Total Creatine Kinase Total Protein Cholesterol LDL Cholesterol Direct HDL Cholesterol Lipase 01/22/18 01/22/18 01/22/18 00:47 03:27 03:27 WBC Hgb 11.2 L Hct 34.1 L D Lymph % (Auto) Lymph # Seg Neutrophils % Seg Neuts % (Manual) Lymphocytes % (Manual) Seg Neutrophils # Seg Neutrophils # Man Lymphocytes # (Manual) Sodium Potassium 3.2 L Chloride 107.2 H Carbon Dioxide BUN Glucose 128 H POC Glucose 118 H Hemoglobin A1c Calcium 7.4 L Phosphorus Magnesium Total Creatine Kinase Total Protein Cholesterol LDL Cholesterol Direct HDL Cholesterol Lipase 01/22/18 01/22/18 04:00 06:08 WBC Hgb Hct Lymph % (Auto) Lymph # Seg Neutrophils % Seg Neuts % (Manual) Lymphocytes % (Manual) Seg Neutrophils # Seg Neutrophils # Man Lymphocytes # (Manual) Sodium Potassium Chloride Carbon Dioxide BUN Glucose POC Glucose 147 H 182 H Hemoglobin A1c Calcium Phosphorus Magnesium Total Creatine Kinase Total Protein Cholesterol LDL Cholesterol Direct HDL Cholesterol Lipase
--- NOTE | 2018-01-22 10:25 | Gastroenterology Progress Note ---
Assessment and Plan 1.intractable N/V 2.abd pain 3.uncontrolled DM 4.cardiomyopathy (s/p PPM) 5.syncope (seizure?)-cardiology and neurology following -afebrile -WBC-WNL -abd CT showed distended bladder with minimal bilateral hydronephrosis -etiology-likely 2/2 urinary retention (uncontrolled DM may also be contributing ) -clinically, patient reports feeling much better today s/p drainage of urinary bladder with abd pain and N/V now improved. Tolerating diet. -no plans for EGD -optimize blood glucose -limit narcotics -continue PPI, antiemetics, and supportive care -no further recommendation per GI standpoint at this time -will sign off, please call if needed Subjective Date of service: 01/22/18 Principal diagnosis: Intractable N&V Interval history: Patient resting in bed this am w/o acute distress. Reports feel better today s/ p catheter placement per urology yesterday with abd pain and N/V now improved. Tolerated regular diet for breakfast. Objective - Constitutional Vitals: Temp Pulse Resp BP Pulse Ox 98.2 F 75 11 L 99/56 100 01/22/18 08:00 01/22/18 10:14 01/22/18 10:00 01/22/18 10:14 01/22/18 10:00 General appearance: no acute distress - Respiratory Respiratory: bilateral: CTA (anterior) - Cardiovascular Rhythm: regular Heart Sounds: Present: S1 & S2 - Gastrointestinal General gastrointestinal: Present: soft, tender, non-distended, normal bowel sounds - Neurologic Neurological: alert and oriented x3 - Labs CBC & Chem 7: 01/22/18 03:27 01/22/18 03:27 Labs: Laboratory Results - last 24 hr 01/21/18 01/21/18 01/21/18 07:43 08:55 10:15 WBC RBC Hgb Hct MCV MCH MCHC RDW Plt Count Lymph % (Auto) [place] % (Auto) Eos % (Auto) Baso % (Auto) Lymph # [place] # Eos # Baso # Seg Neutrophils % Seg Neutrophils # Sodium Potassium Chloride Carbon Dioxide Anion Gap BUN Creatinine Estimated GFR BUN/Creatinine Ratio Glucose POC Glucose 182 H 137 H 166 H Lactic Acid Calcium Urine Opiates Screen Urine Methadone Screen Ur Barbiturates Screen Ur Phencyclidine Scrn Ur Amphetamines Screen U Benzodiazepines Scrn Urine Cocaine Screen U Marijuana (THC) Screen Drugs of Abuse Note 01/21/18 01/21/18 01/21/18 10:55 12:24 17:08 WBC RBC Hgb Hct MCV MCH MCHC RDW Plt Count Lymph % (Auto) [place] % (Auto) Eos % (Auto) Baso % (Auto) Lymph # [place] # Eos # Baso # Seg Neutrophils % Seg Neutrophils # Sodium Potassium Chloride Carbon Dioxide Anion Gap BUN Creatinine Estimated GFR BUN/Creatinine Ratio Glucose POC Glucose 176 H 166 H Lactic Acid Calcium Urine Opiates Screen Presumptive negative Urine Methadone Screen Presumptive negative Ur Barbiturates Screen Presumptive negative Ur Phencyclidine Scrn Presumptive negative Ur Amphetamines Screen Presumptive negative U Benzodiazepines Scrn Presumptive negative Urine Cocaine Screen Presumptive positive U Marijuana (THC) Screen Presumptive positive Drugs of Abuse Note Disclamer 01/21/18 01/21/18 01/21/18 18:02 Unknown Unknown WBC 10.3 RBC 4.53 Hgb 13.6 Hct 40.7 MCV 90 MCH 30 MCHC 33 RDW 13.6 Plt Count 263 Lymph % (Auto) 9.2 L [place] % (Auto) 7.1 Eos % (Auto) 0.0 Baso % (Auto) 1.3 Lymph # 1.0 L [place] # 0.7 Eos # 0.0 Baso # 0.1 Seg Neutrophils % 82.4 H Seg Neutrophils # 8.5 H Sodium 143 Potassium 3.4 L Chloride 105.9 Carbon Dioxide 20 L Anion Gap 21 BUN 16 Creatinine 1.0 Estimated GFR > 60 BUN/Creatinine Ratio 16 Glucose 161 H POC Glucose 190 H Lactic Acid Calcium 8.7 Urine Opiates Screen Urine Methadone Screen Ur Barbiturates Screen Ur Phencyclidine Scrn Ur Amphetamines Screen U Benzodiazepines Scrn Urine Cocaine Screen U Marijuana (THC) Screen Drugs of Abuse Note 01/21/18 01/22/18 01/22/18 Unknown 00:28 00:47 WBC RBC Hgb Hct MCV MCH MCHC RDW Plt Count Lymph % (Auto) [place] % (Auto) Eos % (Auto) Baso % (Auto) Lymph # [place] # Eos # Baso # Seg Neutrophils % Seg Neutrophils # Sodium Potassium Chloride Carbon Dioxide Anion Gap BUN Creatinine Estimated GFR BUN/Creatinine Ratio Glucose POC Glucose 55 L 118 H Lactic Acid 1.50 Calcium Urine Opiates Screen Urine Methadone Screen Ur Barbiturates Screen Ur Phencyclidine Scrn Ur Amphetamines Screen U Benzodiazepines Scrn Urine Cocaine Screen U Marijuana (THC) Screen Drugs of Abuse Note 01/22/18 01/22/18 01/22/18 03:27 03:27 04:00 WBC 5.0 RBC 3.75 Hgb 11.2 L Hct 34.1 L D MCV 91 MCH 30 MCHC 33 RDW 13.7 Plt Count 213 Lymph % (Auto) [place] % (Auto) Eos % (Auto) Baso % (Auto) Lymph # [place] # Eos # Baso # Seg Neutrophils % Seg Neutrophils # Sodium 138 Potassium 3.2 L Chloride 107.2 H Carbon Dioxide 22 Anion Gap 12 BUN 10 Creatinine 0.8 Estimated GFR > 60 BUN/Creatinine Ratio 13 Glucose 128 H POC Glucose 147 H Lactic Acid Calcium 7.4 L Urine Opiates Screen Urine Methadone Screen Ur Barbiturates Screen Ur Phencyclidine Scrn Ur Amphetamines Screen U Benzodiazepines Scrn Urine Cocaine Screen U Marijuana (THC) Screen Drugs of Abuse Note 01/22/18 06:08 WBC RBC Hgb Hct MCV MCH MCHC RDW Plt Count Lymph % (Auto) [place] % (Auto) Eos % (Auto) Baso % (Auto) Lymph # [place] # Eos # Baso # Seg Neutrophils % Seg Neutrophils # Sodium Potassium Chloride Carbon Dioxide Anion Gap BUN Creatinine Estimated GFR BUN/Creatinine Ratio Glucose POC Glucose 182 H Lactic Acid Calcium Urine Opiates Screen Urine Methadone Screen Ur Barbiturates Screen Ur Phencyclidine Scrn Ur Amphetamines Screen U Benzodiazepines Scrn Urine Cocaine Screen U Marijuana (THC) Screen Drugs of Abuse Note
[2018-01-22] MEDS: MORPHINE IV PRN ×2 (13:14→19:42)
--- NOTE | 2018-01-22 15:31 | Progress Note ---
Assessment and Plan Assessment and plan: Patient seen 52-year-old male with past medical history significant for cardiomyopathy with a AICD placement secondary to EF of 30-35% was reduced RV systolic function, Also diabetes uncontrolled with peripheral neuropathy prior history of cocaine use in the past. Patient reports that he has been noncompliant with his medications. Presented to the ED with complaints of abdominal pain 3/10 that has been ongoing for 3 days position and nausea vomiting. The patient was very mild forthcoming with information and did not provide any much information and only allowed limited examination. He is unable to tell me how much insulin and medications that he takes. DKA-resolving Leukocytosis Metabolic Acidosis Uncontrolled DM cardiomyopathy s/p PPM Hypertension Abdominal pain with peritoneal irritation Neurogenic bladder Seizure History of substance abuse preference cocaine Plan Continue current measures. We'll obtain a repeat CT scan with contrast to rule out ischemic bowel and dissection Continue DKA protocol Consults neurologist for seizure management DKA protocol Ortega paced by Urology, will need to discharge with oretga and follow pain control DVT and GI prophylaxis Can transfer to the IMCU and if remains stable can likely be discharged in am. History Interval history: Patient seen and examined this morning improving and restful at this time Hospitalist Physical - Physical exam Narrative exam: VITAL SIGNS: Reviewed. GENERAL: The patient appeared well nourished and normally developed. Vital signs as documented. HEAD: No signs of head trauma. EYES: Pupils are equal. Extraocular motions intact. EARS: Hearing grossly intact. MOUTH: Oropharynx is normal. NECK: No adenopathy, no JVD. CHEST: Chest with clear breath sounds bilaterally. No wheezes, rales, or rhonchi. CARDIAC: Regular rate and rhythm. S1 and S2, without murmurs, gallops, or rubs. VASCULAR: No Edema. Peripheral pulses normal and equal in all extremities. ABDOMEN: Soft, tender to palpation no sign of distention. No rebound or guarding, and no masses palpated. Bowel Sounds normal. MUSCULOSKELETAL: Good range of motion of all major joints. Extremities without clubbing, cyanosis or edema. NEUROLOGIC EXAM: Alert and oriented x 3. No focal sensory or strength deficits. Speech normal. Follows commands. PSYCHIATRIC: Mood normal. SKIN: No rash or lesions. - Constitutional Vitals: Temp Pulse Resp BP Pulse Ox 98.1 F 80 17 106/52 99 01/22/18 12:00 01/22/18 13:00 01/22/18 13:00 01/22/18 13:00 01/22/18 13:00 General appearance: Present: mild distress Results - Labs CBC & Chem 7: 01/22/18 03:27 01/22/18 03:27 Labs: Laboratory Last Values WBC 5.0 K/mm3 (4.5-11.0) 01/22/18 03:27 RBC 3.75 M/mm3 (3.65-5.03) 01/22/18 03:27 Hgb 11.2 gm/dl (11.8-15.2) L 01/22/18 03:27 Hct 34.1 % (35.5-45.6) L D 01/22/18 03:27 MCV 91 fl (84-94) 01/22/18 03:27 MCH 30 pg (28-32) 01/22/18 03:27 MCHC 33 % (32-34) 01/22/18 03:27 RDW 13.7 % (13.2-15.2) 01/22/18 03:27 Plt Count 213 K/mm3 (140-440) 01/22/18 03:27 Lymph % (Auto) 9.2 % (13.4-35.0) L 01/21/18 Unknown [place] % (Auto) 7.1 % (0.0-7.3) 01/21/18 Unknown Eos % (Auto) 0.0 % (0.0-4.3) 01/21/18 Unknown Baso % (Auto) 1.3 % (0.0-1.8) 01/21/18 Unknown Lymph # 1.0 K/mm3 (1.2-5.4) L 01/21/18 Unknown [place] # 0.7 K/mm3 (0.0-0.8) 01/21/18 Unknown Eos # 0.0 K/mm3 (0.0-0.4) 01/21/18 Unknown Baso # 0.1 K/mm3 (0.0-0.1) 01/21/18 Unknown Add Manual Diff Complete 01/20/18 09:09 Total Counted 100 01/20/18 09:09 Seg Neutrophils % 82.4 % (40.0-70.0) H 01/21/18 Unknown Seg Neuts % (Manual) 92.0 % (40.0-70.0) H 01/20/18 09:09 Band Neutrophils % 0 % 01/20/18 09:09 Lymphocytes % (Manual) 2.0 % (13.4-35.0) L 01/20/18 09:09 Reactive Lymphs % (Man) 0 % 01/20/18 09:09 Monocytes % (Manual) 6.0 % (0.0-7.3) 01/20/18 09:09 Eosinophils % (Manual) 0 % (0.0-4.3) 01/20/18 09:09 Basophils % (Manual) 0 % (0.0-1.8) 01/20/18 09:09 Metamyelocytes % 0 % 01/20/18 09:09 Myelocytes % 0 % 01/20/18 09:09 Promyelocytes % 0 % 01/20/18 09:09 Blast Cells % 0 % 01/20/18 09:09 Nucleated RBC % Not Reportable 01/20/18 09:09 Seg Neutrophils # 8.5 K/mm3 (1.8-7.7) H 01/21/18 Unknown Seg Neutrophils # Man 11.7 K/mm3 (1.8-7.7) H 01/20/18 09:09 Band Neutrophils # 0.0 K/mm3 01/20/18 09:09 Lymphocytes # (Manual) 0.3 K/mm3 (1.2-5.4) L 01/20/18 09:09 Abs React Lymphs (Man) 0.0 K/mm3 01/20/18 09:09 Monocytes # (Manual) 0.8 K/mm3 (0.0-0.8) 01/20/18 09:09 Eosinophils # (Manual) 0.0 K/mm3 (0.0-0.4) 01/20/18 09:09 Basophils # (Manual) 0.0 K/mm3 (0.0-0.1) 01/20/18 09:09 Metamyelocytes # 0.0 K/mm3 01/20/18 09:09 Myelocytes # 0.0 K/mm3 01/20/18 09:09 Promyelocytes # 0.0 K/mm3 01/20/18 09:09 Blast Cells # 0.0 K/mm3 01/20/18 09:09 WBC Morphology Not Reportable 01/20/18 09:09 Hypersegmented Neuts Not Reportable 01/20/18 09:09 Hyposegmented Neuts Not Reportable 01/20/18 09:09 Hypogranular Neuts Not Reportable 01/20/18 09:09 Smudge Cells Not Reportable 01/20/18 09:09 Toxic Granulation 1+ 01/20/18 09:09 Toxic Vacuolation Not Reportable 01/20/18 09:09 Dohle Bodies Not Reportable 01/20/18 09:09 Pelger-Huet Anomaly Not Reportable 01/20/18 09:09 Tiara Rods Not Reportable 01/20/18 09:09 Platelet Estimate Cons 01/20/18 09:09 Clumped Platelets Not Reportable 01/20/18 09:09 Plt Clumps, EDTA Not Reportable 01/20/18 09:09 Large Platelets Not Reportable 01/20/18 09:09 Giant Platelets Not Reportable 01/20/18 09:09 Platelet Satelliting Not Reportable 01/20/18 09:09 Plt Morphology Comment Not Reportable 01/20/18 09:09 RBC Morphology Normal 01/20/18 09:09 Dimorphic RBCs Not Reportable 01/20/18 09:09 Polychromasia Not Reportable 01/20/18 09:09 Hypochromasia Not Reportable 01/20/18 09:09 Poikilocytosis Not Reportable 01/20/18 09:09 Anisocytosis Not Reportable 01/20/18 09:09 Microcytosis Not Reportable 01/20/18 09:09 Macrocytosis Not Reportable 01/20/18 09:09 Spherocytes Not Reportable 01/20/18 09:09 Pappenheimer Bodies Not Reportable 01/20/18 09:09 Sickle Cells Not Reportable 01/20/18 09:09 Target Cells Not Reportable 01/20/18 09:09 Tear Drop Cells Not Reportable 01/20/18 09:09 Ovalocytes Not Reportable 01/20/18 09:09 Helmet Cells Not Reportable 01/20/18 09:09 [place] Bodies Not Reportable 01/20/18 09:09 [place] Rings Not Reportable 01/20/18 09:09 [place] Cells Not Reportable 01/20/18 09:09 Bite Cells Not Reportable 01/20/18 09:09 Crenated Cell Not Reportable 01/20/18 09:09 Elliptocytes Not Reportable 01/20/18 09:09 Acanthocytes (Spur) Not Reportable 01/20/18 09:09 Rouleaux Not Reportable 01/20/18 09:09 Hemoglobin C Crystals Not Reportable 01/20/18 09:09 Schistocytes Not Reportable 01/20/18 09:09 Malaria parasites Not Reportable 01/20/18 09:09 Pradeep Bodies Not Reportable 01/20/18 09:09 Hem Pathologist Commnt No 01/20/18 09:09 Sodium 138 mmol/L (137-145) 01/22/18 03:27 Potassium 3.2 mmol/L (3.6-5.0) L 01/22/18 03:27 Chloride 107.2 mmol/L (98-107) H 01/22/18 03:27 Carbon Dioxide 22 mmol/L (22-30) 01/22/18 03:27 Anion Gap 12 mmol/L 01/22/18 03:27 BUN 10 mg/dL (9-20) 01/22/18 03:27 Creatinine 0.8 mg/dL (0.8-1.5) 01/22/18 03:27 Estimated GFR > 60 ml/min 01/22/18 03:27 BUN/Creatinine Ratio 13 % 01/22/18 03:27 Glucose 128 mg/dL (75-100) H 01/22/18 03:27 POC Glucose 233 (70-105) H 01/22/18 11:58 Hemoglobin A1c 15.7 % (4-6) H 01/20/18 09:05 Osmolality 343 Mosm/kg 01/20/18 09:05 Lactic Acid 1.50 mmol/L (0.7-2.0) 01/21/18 Unknown Calcium 7.4 mg/dL (8.4-10.2) L 01/22/18 03:27 Phosphorus 3.20 mg/dL (2.5-4.5) D 01/20/18 10:20 Magnesium 2.70 mg/dL (1.7-2.3) H 01/20/18 10:20 Total Bilirubin 1.10 mg/dL (0.1-1.2) 01/20/18 09:05 AST 17 units/L (5-40) 01/20/18 09:05 ALT 19 units/L (7-56) 01/20/18 09:05 Alkaline Phosphatase 96 units/L (35-129) 01/20/18 09:05 Total Creatine Kinase 226 units/L (55-170) H 01/21/18 03:47 CK-MB (CK-2) 2.3 ng/mL (0.0-4.0) 01/21/18 03:47 CK-MB (CK-2) Rel Index 1.0 (0-4) 01/21/18 03:47 Troponin T < 0.010 ng/mL (0.00-0.029) 01/21/18 03:47 Total Protein 8.3 g/dL (6.3-8.2) H 01/20/18 09:05 Albumin 4.9 g/dL (3.9-5) 01/20/18 09:05 Albumin/Globulin Ratio 1.4 % 01/20/18 09:05 Triglycerides 99 mg/dL (2-149) 01/20/18 09:05 Cholesterol 312 mg/dL (50-199) H 01/20/18 09:05 LDL Cholesterol Direct 176 mg/dL (50-130) H 01/20/18 09:05 HDL Cholesterol 156 mg/dL (40-59) H 01/20/18 09:05 Cholesterol/HDL Ratio 2.00 % 01/20/18 09:05 Lipase 10 units/L (13-60) L 01/20/18 09:05 Urine Opiates Screen Presumptive negative 01/21/18 17:08 Urine Methadone Screen Presumptive negative 01/21/18 17:08 Ur Barbiturates Screen Presumptive negative 01/21/18 17:08 Ur Phencyclidine Scrn Presumptive negative 01/21/18 17:08 Ur Amphetamines Screen Presumptive negative 01/21/18 17:08 U Benzodiazepines Scrn Presumptive negative 01/21/18 17:08 Urine Cocaine Screen Presumptive positive 01/21/18 17:08 U Marijuana (THC) Screen Presumptive positive 01/21/18 17:08 Drugs of Abuse Note Disclamer 01/21/18 17:08 Plasma/Serum Alcohol < 0.01 % (0-0.07) 01/20/18 09:21
[2018-01-22] MEDS ORDERED: PERCOCET 5/325 PO PRN (22:29)
[2018-01-22] MEDS: DILAUDID IM PRN (23:02)
[2018-01-23] MEDS: HumaLOG SUB-Q SCH ×3 (00:15→13:53)
[2018-01-23] MEDS: COREG PO SCH ×2 (00:33→13:52)
[2018-01-23 00:35] VITALS: BP 100/61
[2018-01-23] MEDS: SODIUM CHLORIDE FLUSH SYRINGE 10 ML IV SCH ×2 (02:14→13:52)
[2018-01-23] MEDS: DILAUDID IM PRN (03:04)
--- NOTE | 2018-01-23 08:37 | Progress Note ---
Assessment and Plan check bmp today, remove ortega with bladder training and normal lv function, cont coreg and may discharge from [facility] point of view, interrogation revealed functioning device - Patient Problems (1) Cocaine use Current Visit: Yes Status: Chronic (2) Diabetes mellitus with hyperglycemia Current Visit: Yes Status: Chronic (3) Syncope Current Visit: Yes Status: Acute (4) HTN (hypertension) Current Visit: Yes Status: Chronic (5) History of cardiomyopathy Current Visit: Yes Status: Chronic (6) Medical non-compliance Current Visit: Yes Status: Chronic Subjective Date of service: 01/23/18 Principal diagnosis: DKA; Severe Abdominal Pain; Intractable N&V; Severe Bladder Distension Interval history: pt wants ortega removed Objective Vital Signs Temp Pulse Pulse Pulse Pulse Pulse Resp 01/23/18 04:00 97.6 F 78 78 78 78 12 01/23/18 00:33 76 01/23/18 00:00 98.6 F 78 78 78 78 12 01/22/18 23:32 16 01/22/18 23:02 13 01/22/18 22:30 01/22/18 22:00 78 12 01/22/18 21:55 76 01/22/18 21:26 01/22/18 21:22 75 01/22/18 21:00 75 12 01/22/18 20:00 98.3 F 81 78 78 78 78 11 L 01/22/18 19:42 13 01/22/18 19:00 89 21 01/22/18 18:00 79 10 L 01/22/18 17:06 70 14 01/22/18 16:00 98.4 F 70 70 14 01/22/18 15:00 74 12 01/22/18 14:01 84 12 01/22/18 13:00 80 17 01/22/18 12:00 98.1 F 76 86 14 01/22/18 11:00 69 13 01/22/18 10:14 75 01/22/18 10:00 72 11 L 01/22/18 09:00 77 18 Resp BP Pulse Ox 01/23/18 04:00 99 01/23/18 00:33 100/61 01/23/18 00:00 99 01/22/18 23:32 109/66 01/22/18 23:02 01/22/18 22:30 109/66 01/22/18 22:00 117/72 96 01/22/18 21:55 01/22/18 21:26 17 01/22/18 21:22 01/22/18 21:00 109/68 98 01/22/18 20:00 121/80 97 01/22/18 19:42 01/22/18 19:00 113/64 99 01/22/18 18:00 114/75 100 01/22/18 17:06 100 01/22/18 16:00 116/74 100 01/22/18 15:00 102/57 100 01/22/18 14:01 102/61 98 01/22/18 13:00 106/52 99 01/22/18 12:00 106/58 98 01/22/18 11:00 96/54 100 01/22/18 10:14 99/56 01/22/18 10:00 17 99/56 100 01/22/18 09:00 106/59 100 - Physical Examination General: No Apparent Distress HEENT: Positive: PERRL Neck: Positive: neck supple, trachea midline Cardiac: Positive: Reg Rate and Rhythm Lungs: Positive: clear to auscultation Neuro: Positive: Grossly Intact Abdomen: Positive: Soft. Negative: Tender Skin: Negative: Rash, Wound Musculoskeletal: No Pain Extremities: Absent: edema - Imaging and Cardiology EKG: pending Echo: pending, report reviewed (09/2016 showed EF 30-35%, mod reduced RV systolic function. ) - Telemetry EKG Rhythm: Sinus Rhythm - EKG Sinus rhythms and dysrhythmias: sinus rhythm
[2018-01-23 09:08] LABS: BUN/Creatinine Ratio 9; Blood Urea Nitrogen 6 mg/dL (9-20); Calcium 8.3 mg/dL (8.4-10.2); Hemolysis Index 5
[2018-01-23] MEDS ORDERED: PROTONIX PO SCH (10:00)
--- NOTE | 2018-01-23 13:47 | Discharge Summary ---
Providers - Providers Date of Admission: 01/20/18 11:00 Date of discharge: 01/23/18 Attending physician: DOROTHY BONILLA 01/20/18 10:13 Consult to Case Management [CONS] Routine Services Needed at Discharge: Tapper Balance Wheel Screw Hole 01/20/18 10:56 Consult to Physician [CONS] Routine Comment: DR AMADOR NOTIFIED 1200 Consulting Provider: ISRA SHELTON Physician Instructions: Reason For Exam: dka 01/21/18 06:41 Consult to Physician [CONS] Routine Comment: Consulting Provider: ADEBAYO VARGAS Physician Instructions: Reason For Exam: syncope/CM 01/21/18 08:58 Consult to Physician [CONS] Routine Comment: Consulting Provider: ASRI PATE Physician Instructions: Reason For Exam: intractable nausea and vomiting 01/21/18 11:59 Consult to Physician [CONS] Routine Comment: Consulting Provider: AUDI MONTANO Physician Instructions: Reason For Exam: distended bladder 01/21/18 13:05 Consult to Physician [CONS] Routine Comment: Consulting Provider: ALIZE GARCIA Physician Instructions: Reason For Exam: seizure Primary care physician: [facility] [employer] Hospitalization Reason for admission: DKA Condition: Fair Hospital course: FINAL DIAGNOSIS: DKA, resolved Neurogenic bladder H/O cardiomyopathy Hypertension Abdominal pain with peritoneal irritation H/O Seizure History of cocaine abuse She was admitted to the ICU and placed on DKA protocol. Thereafter, his anion gap closed and he was started on subcutaneous Insulin while the Insulin drip was titrated off. Patient also experienced urinary retention for which ortega catheter was inserted by the urologist. For his other comorbidities, he was continued on his home medications. Subsequently, he was transferred to the stepdown unit for continued management. Plan was to discharge the patient on continuous ortega catheter use with urology clinic follow-up. However, the patient insisted on removing the ortega catheter and asked to sign against medical advice. He stated that he was tricked into having the catheter placed, however he was informed about the need for the catheter prior to the insertion. He understood the implications of his decision. Disposition: DC-07 LEFT AGAINST MED ADVICE Time spent for discharge: 25 minutes Core Measure Documentation - Palliative Care Palliative Care/ Comfort Measures: Not Applicable - Core Measures Any of the following diagnoses?: none Exam - Physical Exam Narrative exam: Patient was not examined by me - Constitutional Vitals: Temp Pulse Resp BP Pulse Ox 97.6 F 78 12 100/61 99 01/23/18 04:00 01/23/18 04:00 01/23/18 04:00 01/23/18 00:33 01/23/18 04:00 Plan Follow up with: PRIMARY CARE, [Primary Care Provider] - 3-5 Days
[2018-01-23] MEDS: LOVENOX SUB-Q SCH (13:52)
== END 2018-01-23 10:40 | disposition left against medical advice (07) | DRG 371 ==
LOC: ED 08:24 → CC1 11:00 → IMCU 01-23 00:47
PROVIDERS: ADMIT Internal Medicine; ATTEND Internal Medicine
PROC: 4B02XSZ Measurement of Cardiac Pacemaker, External Approach (ICD-10-PCS; principal; 2018-01-22)
DX: K65.9 Peritonitis, unspecified (principal); E11.10 Type 2 diabetes mellitus with ketoacidosis without coma; I26.99 Other pulmonary embolism without acute cor pulmonale; I42.9 Cardiomyopathy, unspecified; N13.30 Unspecified hydronephrosis; G93.40 Encephalopathy, unspecified; I47.1 Supraventricular tachycardia; I50.9 Heart failure, unspecified; I11.0 Hypertensive heart disease with heart failure; J44.9 Chronic obstructive pulmonary disease, unspecified; E11.42 Type 2 diabetes mellitus with diabetic polyneuropathy; I25.10 Atherosclerotic heart disease of native coronary artery without angina pectoris; N32.89 Other specified disorders of bladder; E11.65 Type 2 diabetes mellitus with hyperglycemia; N13.9 Obstructive and reflux uropathy, unspecified; N31.2 Flaccid neuropathic bladder, not elsewhere classified; R33.9 Retention of urine, unspecified; F14.90 Cocaine use, unspecified, uncomplicated; Z86.73 Personal history of transient ischemic attack (TIA), and cerebral infarction without residual deficits; Z95.0 Presence of cardiac pacemaker; Z90.49 Acquired absence of other specified parts of digestive tract; Z91.14 Patient's other noncompliance with medication regimen; Z53.21 Procedure and treatment not carried out due to patient leaving prior to being seen by health care provider
CPT/HCPCS: 36415; 71045; 74176; 74177; 76770; 80048; 80053; 80061; 80307; 80320; 82140; 82550; 82553; 82962; 83036; 83690; 83735; 83930; 84100; 84484; 85007; 85025; 85027; 93005; 93010; 93306; 95819; A9270-GY; C1769; C9113; G0480; J1170; J1650; J1815; J2270; J2405; J7030; Q0162; Q9967

== ENCOUNTER 2018-01-24 08:09 | Emergency (ER) | payer SELFPAY ==
[2018-01-24] MEDS ORDERED: DILAUDID IV ONE (09:01)
[2018-01-24 10:20] VITALS: BP 128/86
--- NOTE | 2018-01-24 10:34 | Emergency Department Report ---
ED General Adult HPI - General Chief complaint: Urogenital-Male Stated complaint: UNABLE TO URINE Time Seen by Provider: 01/24/18 08:54 Source: patient, EMS (ems notes not available at time of chart dictation), RN notes reviewed, old records reviewed Mode of arrival: Stretcher Limitations: No Limitations - History of Present Illness Initial comments: This is a 52-year-old gentleman who is known to this provider previously. Patient has a past medical history of cocaine abuse, diabetic ketoacidosis, neurogenic bladder, cardiomyopathy, hypertension, seizure, recently admitted to this hospital for diabetic ketoacidosis, neurogenic bladder and urinary obstruction, as well as abdominal pain. His DKA was treated appropriately and his anion gap acidosis resolves, and patient left the hospital yesterday and had his Griggs catheter removed as per his request. The patient was informed that the Griggs catheter removed was not medically advisable, but patient demanded it. In addition, had abdominal pain which had extensive workup, including CT scan of the abdomen and pelvis which was negative for acute surgical disease, and he was also evaluated by gastroenterology, who suspected that his pain was secondary to urinary retention , and may also be related to underlying diabetes. Patient presented today with a complaint of leg pain, back pain, abdominal pain , and urinary retention. His symptoms have been constant, they do not radiate anywhere, the increased with palpation, decreased with rest. -: Gradual Location: back, abdomen, left, right, lower extremity Radiation: non-radiation Severity scale (0 -10): 10 Quality: aching Consistency: constant Improves with: other Worsens with: movement Associated Symptoms: other (urinary retention, back pain, abdominal pain, leg pain). denies: confusion, chest pain, cough, headaches, loss of appetite, malaise, nausea/vomiting, rash, seizure, shortness of breath, syncope, weakness - Related Data Home Medications Medication Instructions Recorded Confirmed Last Taken Insulin Aspart Prot/Aspart(Nf) 7 units SQ BID 12/06/17 01/20/18 Unknown [Novolog Mix 70/30] Allergies Allergy/AdvReac Type Severity Reaction Status Date / Time No Known Allergies Allergy Verified 01/24/18 08:29 ED Review of Systems ROS: Stated complaint: UNABLE TO URINE Other details as noted in HPI Constitutional: malaise Eyes: denies: eye discharge ENT: denies: epistaxis Respiratory: denies: cough Cardiovascular: denies: chest pain Gastrointestinal: abdominal pain Genitourinary: other (urinary retention) Musculoskeletal: arthralgia, myalgia Skin: denies: lesions Neurological: denies: weakness Psychiatric: anxiety ED Past Medical Hx - Past Medical History Previous Medical History?: Yes Hx Hypertension: Yes Hx CVA: Yes Hx Heart Attack/AMI: Yes (Cardiomyopathy) Hx Congestive Heart Failure: Yes Hx Diabetes: Yes Hx Renal Disease: Yes Hx Asthma: No Hx COPD: Yes Hx HIV: No - Surgical History Hx Pacemaker: Yes Hx Internal Defibrillator: Yes Hx Appendectomy: Yes Additional Surgical History: HERNIA SURGERY, Pacemaker - Social History Smoking Status: Former Smoker Substance Use Type: None - Medications Home Medications: Home Medications Medication Instructions Recorded Confirmed Last Taken Type Insulin Aspart Prot/Aspart(Nf) 7 units SQ BID 12/06/17 01/20/18 Unknown History [Novolog Mix 70/30] ED Physical Exam - General Limitations: No Limitations General appearance: alert, anxious - Head Head exam: Present: atraumatic, normocephalic - Eye Eye exam: Present: normal appearance, EOMI. Absent: nystagmus - ENT ENT exam: Present: normal exam, normal orophraynx, mucous membranes moist, normal external ear exam - Neck Neck exam: Present: normal inspection, full ROM. Absent: tenderness, meningismus - Respiratory Respiratory exam: Present: normal lung sounds bilaterally. Absent: respiratory distress - Cardiovascular Cardiovascular Exam: Present: regular rate, normal rhythm. Absent: systolic murmur, diastolic murmur, rubs, gallop - GI/Abdominal GI/Abdominal exam: Present: soft, tenderness. Absent: distended, guarding, rebound, rigid, pulsatile mass - exam: Present: normal inspection, other (Griggs catheter in place draining clear yellow urine) External exam: Present: normal external exam - Extremities Exam Extremities exam: Present: full ROM, other (2+ pulses in the upper, lower extremities. Compartments soft. Anterior tibial tenderness noted on the left lower extremity, there is no redness or pus or streaking) - Back Exam Back exam: Present: normal inspection, full ROM, CVA tenderness (L), paraspinal tenderness. Absent: CVA tenderness (R) - Neurological Exam Neurological exam: Present: alert, oriented X3, CN II-XII intact, normal gait, other (Extraocular movements intact. Tongue midline. No facial droop. Facial sensation intact to light touch in the V1, V2, V3 distribution bilaterally. 5 and 5 strength in 4 extremities.. Sensation is intact to light touch in 4 extremities.). Absent: motor sensory deficit - Psychiatric Psychiatric exam: Present: anxious - Skin Skin exam: Present: warm, dry, intact, normal color. Absent: rash ED Course Vital Signs 01/24/18 01/24/18 01/24/18 08:24 09:00 09:30 Temperature 98.1 F Pulse Rate 96 H 92 H Respiratory 16 16 16 Rate Blood Pressure 121/58 Blood Pressure 128/86 [Right] O2 Sat by Pulse 96 96 96 Oximetry ED Medical Decision Making - Lab Data Vital Signs 01/24/18 01/24/18 01/24/18 08:24 09:00 09:30 Temperature 98.1 F Pulse Rate 96 H 92 H Respiratory 16 16 16 Rate Blood Pressure 121/58 Blood Pressure 128/86 [Right] O2 Sat by Pulse 96 96 96 Oximetry - Medical Decision Making Differential diagnosis, including when not limited to: Urinary distention, neurogenic bladder, cyclic vomiting syndrome, narcotic bowel syndrome, narcotic dependence, assessment and plan: 52-year-old gentleman who left the hospital yesterday with recurrent urinary retention. As per my discussion with the discharging hospitalist, as documented, patient only was discharged AGAINST MEDICAL ADVICE secondary to his refusal to be discharged with a Griggs catheter. Otherwise, as per the discharge physician, patient would've them medically discharge. He had an extensive workup for his abdominal pain and was essentially cleared by both gastroenterology, and the internal medicine service. Patient's urinary obstruction had resolved with placement of a Griggs catheter, but he eloped from the emergency room prior to completion of his evaluation. Critical care attestation.: If time is entered above; I have spent that time in minutes in the direct care of this critically ill patient, excluding procedure time. ED Disposition Clinical Impression: Urinary retention, Abdominal pain Disposition: ELOPED Is pt being admited?: No Does the pt Need Aspirin: No Condition: Undetermined Referrals: PRIMARY CARE, [Primary Care Provider] - 3-5 Days
== END 2018-01-24 10:15 | disposition left against medical advice (07) ==
LOC: ED 08:09
DX: R30.0 Dysuria (principal); Z53.21 Procedure and treatment not carried out due to patient leaving prior to being seen by health care provider
CPT/HCPCS: J1170

== ENCOUNTER 2018-04-01 07:47 | Emergency (ER) | payer SELFPAY ==
[2018-04-01] MEDS ORDERED: NACL 0.9% 1000 ML 1,000 ML IV ONE (07:58)
[2018-04-01] MEDS ORDERED: MORPHINE IV ONE (07:58)
--- NOTE | 2018-04-01 08:02 | Emergency Department Report ---
ED Abdominal Pain HPI - General Stated Complaint: CP,STOMACH PAIN, N/V Time Seen by Provider: 04/01/18 07:51 - History of Present Illness Initial Comments: 52-year-old male presents with epigastric pain and vomiting since last night. EMS was called, reports patient has syncopal episode while in the ambulance. Patient was given 4 mg of Zofran, 325 mg aspirin by EMS. Patient states pain is sharp and radiates to the back and entire abdomen. Denies fever, diarrhea. Patient denies recent alcohol use. MD Complaint: abdominal pain -: Last night Location: epigastric Radiation: LUQ, RUQ, LLQ, RLQ, back Severity: moderate Quality: sharp Consistency: constant Improves With: nothing Worsens With: nothing Associated Symptoms: nausea, vomiting. denies: diarrhea, fever - Related Data Home Medications Medication Instructions Recorded Confirmed Last Taken Insulin Aspart Prot/Aspart(Nf) 7 units SQ BID 12/06/17 01/20/18 Unknown [Novolog Mix 70/30] Previous Rx's Medication Instructions Recorded Last Taken Type Ciprofloxacin HCl [Ciprofloxacin 500 mg PO Q12H #14 tab 01/30/18 Unknown Rx TAB] HYDROcodone/APAP 5-325 [[place] 1 - 2 each PO Q6HR PRN #14 tablet 01/30/18 Unknown Rx 5/325] Cyclobenzaprine [Flexeril] 10 mg PO TID PRN #30 tablet 02/07/18 Unknown Rx Menthol/Camphor [[place] 1 unit TP QID PRN 60 Days #60 02/07/18 Unknown Rx Ointment] oint...g. Naproxen [Naprosyn] 500 mg PO BID PRN #30 tablet 02/07/18 Unknown Rx Dicyclomine [Bentyl] 20 mg PO QID PRN #20 tablet 04/01/18 Unknown Rx Ondansetron [Zofran Odt] 4 mg PO Q8HR PRN #20 tab.rapdis 04/01/18 Unknown Rx Promethazine [Phenergan TAB] 25 mg PO Q6HR PRN #20 tab 04/01/18 Unknown Rx Allergies Allergy/AdvReac Type Severity Reaction Status Date / Time No Known Allergies Allergy Verified 01/24/18 08:29 ED Review of Systems ROS: Stated complaint: CP,STOMACH PAIN, N/V Other details as noted in HPI Comment: All other systems reviewed and negative Constitutional: denies: chills, fever Cardiovascular: chest pain Gastrointestinal: abdominal pain, nausea, vomiting. denies: diarrhea ED Past Medical Hx - Past Medical History Hx Hypertension: Yes Hx CVA: Yes Hx Heart Attack/AMI: Yes (Cardiomyopathy) Hx Congestive Heart Failure: Yes Hx Diabetes: Yes Hx Renal Disease: Yes Hx Asthma: No Hx COPD: Yes Hx HIV: No - Surgical History Hx Pacemaker: Yes Hx Internal Defibrillator: Yes Hx Appendectomy: Yes Additional Surgical History: HERNIA SURGERY, Pacemaker - Social History Smoking Status: Never Smoker Substance Use Type: None - Medications Home Medications: Home Medications Medication Instructions Recorded Confirmed Last Taken Type Insulin Aspart Prot/Aspart(Nf) 7 units SQ BID 12/06/17 01/20/18 Unknown History [Novolog Mix 70/30] Ciprofloxacin HCl [Ciprofloxacin 500 mg PO Q12H #14 tab 01/30/18 Unknown Rx TAB] HYDROcodone/APAP 5-325 [[place] 1 - 2 each PO Q6HR PRN #14 tablet 01/30/18 Unknown Rx 5/325] Cyclobenzaprine [Flexeril] 10 mg PO TID PRN #30 tablet 02/07/18 Unknown Rx Menthol/Camphor [[place] 1 unit TP QID PRN 60 Days #60 02/07/18 Unknown Rx Ointment] oint...g. Naproxen [Naprosyn] 500 mg PO BID PRN #30 tablet 02/07/18 Unknown Rx Dicyclomine [Bentyl] 20 mg PO QID PRN #20 tablet 04/01/18 Unknown Rx Ondansetron [Zofran Odt] 4 mg PO Q8HR PRN #20 tab.rapdis 04/01/18 Unknown Rx Promethazine [Phenergan TAB] 25 mg PO Q6HR PRN #20 tab 04/01/18 Unknown Rx ED Physical Exam - General General appearance: alert, other (appears uncomfortable) - Head Head exam: Present: atraumatic, normocephalic - Eye Eye exam: Present: normal appearance - ENT ENT exam: Present: mucous membranes moist - Neck Neck exam: Present: normal inspection - Respiratory Respiratory exam: Present: normal lung sounds bilaterally. Absent: respiratory distress - Cardiovascular Cardiovascular Exam: Present: regular rate, normal rhythm - GI/Abdominal GI/Abdominal exam: Present: soft, tenderness (moderate, diffuse). Absent: distended - Extremities Exam Extremities exam: Present: normal inspection - Neurological Exam Neurological exam: Present: alert, oriented X3 - Psychiatric Psychiatric exam: Present: normal affect, normal mood - Skin Skin exam: Present: warm, dry, intact, normal color ED Course Vital Signs 04/01/18 04/01/18 04/01/18 07:59 08:00 08:16 Temperature 98.3 F Pulse Rate 105 H 106 H 124 H Respiratory 30 H 42 H 15 Rate Blood Pressure 136/87 150/125 O2 Sat by Pulse 99 Oximetry 04/01/18 04/01/18 04/01/18 08:30 08:46 09:00 Temperature Pulse Rate 101 H 103 H 107 H Respiratory 34 H 37 H 15 Rate Blood Pressure 140/94 138/86 125/82 O2 Sat by Pulse 99 99 100 Oximetry - Reevaluation(s) Reevaluation #1: 04/01/18 10:49 Pt feeling better. Asking for juice to drink. CT shows gastroenteritis vs ileus. Will PO challenge at this time. ED Medical Decision Making - Lab Data Result diagrams: 04/01/18 08:05 04/01/18 08:05 - EKG Data -: EKG Interpreted by Vt EKG shows normal: sinus rhythm, axis, intervals, QRS complexes, ST-T waves Rate: tachycardia - EKG Data Interpretation: no acute changes - Radiology Data Radiology results: report reviewed, image reviewed - Medical Decision Making 52-year-old male initially presented to the ED today with epigastric abdominal pain, nausea and vomiting. Patient given IV fluids, IV morphine and Zofran for symptom relief. Patient was improved following this therapy. Labs were done and unremarkable. She has history of diabetes, however glucose normal, patient DKA. Renal function normal as well. CT abdomen and pelvis shows gastroenteritis versus ileus. By mouth challenge was done, patient tolerated juice. No emesis while in ED. Vitals normal, tachycardia now resolved. Patient given return precautions. Advised outpatient follow-up. We'll give a prescription for Bentyl and antiemetics. - Differential Diagnosis pancreatitis, bowel obstruction, cholelithiasis Critical care attestation.: If time is entered above; I have spent that time in minutes in the direct care of this critically ill patient, excluding procedure time. ED Disposition Clinical Impression: Gastroenteritis Disposition: DC-01 TO HOME OR SELFCARE Is pt being admited?: No Condition: Stable Instructions: Gastroenteritis (ED) Prescriptions: Dicyclomine [Bentyl] 20 mg PO QID PRN #20 tablet PRN Reason: abdominal pain Ondansetron [Zofran Odt] 4 mg PO Q8HR PRN #20 tab.rapdis PRN Reason: Vomiting Promethazine [Phenergan TAB] 25 mg PO Q6HR PRN #20 tab PRN Reason: Nausea Referrals: PRIMARY CARE, [Primary Care Provider] - 3-5 Days [facility] [Provider Group] - 3-5 Days [facility] [Provider Group] - 3-5 Days Time of Disposition: 11:11
[2018-04-01 08:26] LABS: Basophils % (Auto) 0.5 % (0.0-1.8); Eosinophils # (Auto) 0.1 K/mm3 (0.0-0.4); Eosinophils % (Auto) 1.1 % (0.0-4.3); Hematocrit 43.9 % (35.5-45.6); Hemoglobin 14.1 gm/dl (11.8-15.2); Lymphocytes # (Auto) 1.2 K/mm3 (1.2-5.4); Lymphocytes % (Auto) 21.3 % (13.4-35.0); Mean Corpuscular HGB Conc 32 % (32-34); Mean Corpuscular Hemoglobin 29 pg (28-32); Mean Corpuscular Volume 90 fl (84-94); Monocytes # (Auto) 0.5 K/mm3 (0.0-0.8); Monocytes % (Auto) 8.5 % (0.0-7.3); Platelet Count 330 K/mm3 (140-440); Red Blood Count 4.87 M/mm3 (3.65-5.03); Red Cell Distribution Width 13.8 % (13.2-15.2)
[2018-04-01 08:37] LABS: INR 0.86 (0.87-1.13); Partial Thromboplastin Time 22.2 Sec. (24.2-36.6)
[2018-04-01 08:41] LABS: Albumin 4.6 g/dL (3.9-5)
[2018-04-01 08:43] LABS: BUN/Creatinine Ratio 16; Blood Urea Nitrogen 19 mg/dL (9-20); Calcium 9.6 mg/dL (8.4-10.2); Hemolysis Index 35
[2018-04-01 09:03] VITALS: BP 125/82
[2018-04-01 09:12] LABS: Alanine Aminotransferase 41 units/L (7-56)
[2018-04-01 09:26] LABS: Bilirubin,Direct < 0.2 mg/dL (0-0.2)
[2018-04-01 09:28] LABS: Lipase 36 units/L (13-60)
--- NOTE | 2018-04-01 10:42 | Cat Scan Report ---
CT ABDOMEN PELVIS WITH CONTRAST: HISTORY: Abdominal pain, vomiting. COMPARISON: 01/30/18. TECHNIQUE: Helical CT in 1.25mm intervals following IV contrast. Sagittal and coronal reconstructions. FINDINGS: Lung bases: Normal. Liver: Normal. Biliary system: Normal. Pancreas: Normal. Spleen: Normal. Kidneys/ureters/bladder: The kidneys and ureters are unremarkable. There is moderate to severe distention of the bladder but no bladder wall abnormality or filling defect is detected. Adrenal glands: Normal. Aorta: Normal. Intestines: There is a large amount of fluid throughout the small intestine and colon. There are scattered air-fluid levels but no evidence for focal obstruction. No oral contrast was administered but no obvious focal inflammation or mass. Moderate stool is noted in the distal colon.. Appendix: Not identified, correlate with surgical history. Pelvic viscera: Normal. Ascites: Trace. Adenopathy: None. Musculoskeletal: Normal. IMPRESSION: There is a large amount of fluid throughout the GI system with scattered air-fluid levels. The overall pattern is most consistent with gastroenteritis or ileus. Please correlate with the clinical presentation of the patient. Distended bladder.
== END 2018-04-01 11:42 | disposition home or self-care (01) ==
LOC: ED 07:47
DX: K52.9 Noninfective gastroenteritis and colitis, unspecified (principal); I11.0 Hypertensive heart disease with heart failure; I50.9 Heart failure, unspecified; E11.9 Type 2 diabetes mellitus without complications; J44.9 Chronic obstructive pulmonary disease, unspecified; I25.2 Old myocardial infarction; Z95.818 Presence of other cardiac implants and grafts; Z90.49 Acquired absence of other specified parts of digestive tract
CPT/HCPCS: 36415; 74177; 80048; 80076; 82962; 83690; 84484; 85025; 85610; 85730; 93005; 93010; 96361; 96374; 99284; J2270; J7030; Q9967

== ENCOUNTER 2018-04-07 02:00 | Inpatient (IN) | payer SELFPAY ==
[2018-04-07 02:45] LABS: Basophils # (Auto) 0.1 K/mm3 (0.0-0.1); Bilirubin,Urine NEG (Negative); Blood,Urine NEG (Negative); Color,Urine Yellow (Yellow); Eosinophils # (Auto) 0.1 K/mm3 (0.0-0.4); Eosinophils % (Auto) 0.9 % (0.0-4.3); Hematocrit 41.1 % (35.5-45.6); Hemoglobin 13.6 gm/dl (11.8-15.2); Lymphocytes # (Auto) 0.7 K/mm3 (1.2-5.4); Lymphocytes % (Auto) 12.5 % (13.4-35.0); Mean Corpuscular HGB Conc 33 % (32-34); Mean Corpuscular Volume 89 fl (84-94); Monocytes # (Auto) 0.5 K/mm3 (0.0-0.8); Monocytes % (Auto) 9.2 % (0.0-7.3); Mucus,Urine FEW /HPF; Platelet Count 272 K/mm3 (140-440); Protein,Urine <15 mg/dL mg/dL (Negative); RBC,Urine < 1.0 /HPF (0.0-6.0); Red Cell Distribution Width 13.7 % (13.2-15.2); Urobilinogen,Urine < 2.0 mg/dL (<2.0)
[2018-04-07 02:46] LABS: WBC,Urine < 1.0 /HPF (0.0-6.0)
[2018-04-07 02:54] LABS: Amphetamine Screen,Urine PRESUMPTIVE NEGATIVE; Benzodiazepines Screen,Urine PRESUMPTIVE NEGATIVE; Cannabinoid Screen,Urine PRESUMPTIVE NEGATIVE; Methadone Screen,Urine PRESUMPTIVE NEGATIVE; Opiate Screen,Urine PRESUMPTIVE NEGATIVE
[2018-04-07] MEDS ORDERED: NACL 0.9% 1000 ML 1,000 ML IV ONE ×2 (02:57→04:26)
[2018-04-07] MEDS ORDERED: D50W (25GM) Syringe IV ONE ×4 (02:57→04:29)
--- NOTE | 2018-04-07 02:57 | Emergency Department Report ---
ED Altered Mental Status HPI - General Chief Complaint: Altered Mental Status Stated Complaint: HYPOGLYCEMIA Time Seen by Provider: 04/07/18 02:46 Source: EMS Mode of arrival: Stretcher Limitations: Altered Mental Status - History of Present Illness MD Complaint: altered mental status, decreased responsiveness -: Sudden Severity: severe Context: diabetes, other (Hypoglycermia) Associated Symptoms: weakness Treatments Prior to Arrival: glucose - Related Data Home Medications Medication Instructions Recorded Confirmed Last Taken Insulin Aspart Prot/Aspart(Nf) 7 units SQ BID 12/06/17 01/20/18 Unknown [Novolog Mix 70/30] Previous Rx's Medication Instructions Recorded Last Taken Type Ciprofloxacin HCl [Ciprofloxacin 500 mg PO Q12H #14 tab 01/30/18 Unknown Rx TAB] HYDROcodone/APAP 5-325 [[place] 1 - 2 each PO Q6HR PRN #14 tablet 01/30/18 Unknown Rx 5/325] Cyclobenzaprine [Flexeril] 10 mg PO TID PRN #30 tablet 02/07/18 Unknown Rx Menthol/Camphor [[place] 1 unit TP QID PRN 60 Days #60 02/07/18 Unknown Rx Ointment] oint...g. Naproxen [Naprosyn] 500 mg PO BID PRN #30 tablet 02/07/18 Unknown Rx Dicyclomine [Bentyl] 20 mg PO QID PRN #20 tablet 04/01/18 Unknown Rx Ondansetron [Zofran Odt] 4 mg PO Q8HR PRN #20 tab.rapdis 04/01/18 Unknown Rx Promethazine [Phenergan TAB] 25 mg PO Q6HR PRN #20 tab 04/01/18 Unknown Rx Allergies Allergy/AdvReac Type Severity Reaction Status Date / Time No Known Allergies Allergy Verified 01/24/18 08:29 ED Review of Systems ROS: Stated complaint: HYPOGLYCEMIA Other details as noted in HPI Comment: All other systems reviewed and negative Constitutional: weakness. denies: chills, fever Eyes: denies: eye pain, eye discharge, vision change ENT: denies: ear pain, throat pain Respiratory: denies: cough, shortness of breath, wheezing Cardiovascular: denies: chest pain, palpitations Endocrine: no symptoms reported Gastrointestinal: denies: abdominal pain, nausea, diarrhea Genitourinary: denies: urgency, dysuria Musculoskeletal: denies: back pain, joint swelling, arthralgia Skin: denies: rash, lesions Neurological: denies: headache, weakness, paresthesias Psychiatric: denies: anxiety, depression Hematological/Lymphatic: denies: easy bleeding, easy bruising ED Past Medical Hx - Past Medical History Previous Medical History?: Yes Hx Hypertension: Yes Hx CVA: Yes Hx Heart Attack/AMI: Yes (Cardiomyopathy) Hx Congestive Heart Failure: Yes Hx Diabetes: Yes Hx Renal Disease: Yes Hx Asthma: No Hx COPD: Yes Hx HIV: No - Surgical History Past Surgical History?: Yes Hx Pacemaker: Yes Hx Internal Defibrillator: Yes Hx Appendectomy: Yes Additional Surgical History: HERNIA SURGERY, Pacemaker - Social History Smoking Status: Unknown if ever smoked - Medications Home Medications: Home Medications Medication Instructions Recorded Confirmed Last Taken Type Insulin Aspart Prot/Aspart(Nf) 7 units SQ BID 12/06/17 01/20/18 Unknown History [Novolog Mix 70/30] Ciprofloxacin HCl [Ciprofloxacin 500 mg PO Q12H #14 tab 01/30/18 Unknown Rx TAB] HYDROcodone/APAP 5-325 [[place] 1 - 2 each PO Q6HR PRN #14 tablet 01/30/18 Unknow n Rx 5/325] Cyclobenzaprine [Flexeril] 10 mg PO TID PRN #30 tablet 02/07/18 Unknown Rx Menthol/Camphor [[place] 1 unit TP QID PRN 60 Days #60 02/07/18 Unknown Rx Ointment] oint...g. Naproxen [Naprosyn] 500 mg PO BID PRN #30 tablet 02/07/18 Unknown Rx Dicyclomine [Bentyl] 20 mg PO QID PRN #20 tablet 04/01/18 Unknown Rx Ondansetron [Zofran Odt] 4 mg PO Q8HR PRN #20 tab.rapdis 04/01/18 Unknown Rx Promethazine [Phenergan TAB] 25 mg PO Q6HR PRN #20 tab 04/01/18 Unknown Rx ED Physical Exam - General Limitations: Altered Mental Status General appearance: alert, in no apparent distress - Head Head exam: Present: atraumatic, normocephalic - Eye Eye exam: Present: normal appearance, PERRL - ENT ENT exam: Present: mucous membranes moist - Neck Neck exam: Present: normal inspection - Respiratory Respiratory exam: Present: normal lung sounds bilaterally. Absent: respiratory distress - Cardiovascular Cardiovascular Exam: Present: regular rate, normal rhythm. Absent: systolic murmur, diastolic murmur, rubs, gallop - GI/Abdominal GI/Abdominal exam: Present: soft, normal bowel sounds - Rectal Rectal exam: Present: deferred - Extremities Exam Extremities exam: Present: normal inspection - Back Exam Back exam: Present: normal inspection - Neurological Exam Neurological exam: Present: alert, altered - Psychiatric Psychiatric exam: Present: normal affect, normal mood - Skin Skin exam: Present: warm, dry, intact, normal color. Absent: rash - Assessment Assessment Interval: Baseline (Unable to obtain because patient is altered and does not answer questions or follow commands.) ED Course Vital Signs 04/07/18 04/07/18 04/07/18 02:10 02:14 02:30 Temperature 93 F L Pulse Rate 77 78 79 Respiratory 18 20 Rate Blood Pressure 147/90 173/93 O2 Sat by Pulse 98 99 Oximetry 04/07/18 04/07/18 04/07/18 02:34 03:00 03:30 Temperature Pulse Rate 80 73 Respiratory 16 23 15 Rate Blood Pressure 168/92 126/73 O2 Sat by Pulse 98 99 100 Oximetry 04/07/18 04/07/18 04/07/18 04:23 04:31 05:00 Temperature Pulse Rate 76 79 79 Respiratory 16 17 21 Rate Blood Pressure 107/67 127/73 122/76 O2 Sat by Pulse 100 100 Oximetry 04/07/18 04/07/18 05:31 06:23 Temperature 97.5 F L Pulse Rate 81 Respiratory 22 Rate Blood Pressure 135/78 O2 Sat by Pulse 98 Oximetry - Consultations Consultation #1: 04/07/18 06:24 Dr Julia Ernst to admit. - Lab Data Result diagrams: 04/07/18 02:30 04/07/18 02:30 Lab Results 04/07/18 04/07/18 04/07/18 Range/Units 02:15 02:30 02:30 WBC (4.5-11.0) K/mm3 RBC (3.65-5.03) M/mm3 Hgb (11.8-15.2) gm/dl Hct (35.5-45.6) % MCV (84-94) fl MCH (28-32) pg MCHC (32-34) % RDW (13.2-15.2) % Plt Count (140-440) K/mm3 Lymph % (Auto) (13.4-35.0) % [place] % (Auto) (0.0-7.3) % Eos % (Auto) (0.0-4.3) % Baso % (Auto) (0.0-1.8) % Lymph # (1.2-5.4) K/mm3 [place] # (0.0-0.8) K/mm3 Eos # (0.0-0.4) K/mm3 Baso # (0.0-0.1) K/mm3 Seg Neutrophils % (40.0-70.0) % Seg Neutrophils # (1.8-7.7) K/mm3 PT (12.2-14.9) Sec. INR (0.87-1.13) APTT (24.2-36.6) Sec. Sodium (137-145) mmol/L Potassium (3.6-5.0) mmol/L Chloride (98-107) mmol/L Carbon Dioxide (22-30) mmol/L Anion Gap mmol/L BUN (9-20) mg/dL Creatinine (0.8-1.5) mg/dL Estimated GFR ml/min BUN/Creatinine Ratio % Glucose (75-100) mg/dL POC Glucose 97 (70-105) Lactic Acid (0.7-2.0) mmol/L Calcium (8.4-10.2) mg/dL Total Bilirubin (0.1-1.2) mg/dL AST (5-40) units/L ALT (7-56) units/L Alkaline Phosphatase (35-129) units/L Ammonia (25-60) umol/L Total Creatine Kinase (55-170) units/L Troponin T (0.00-0.029) ng/mL Total Protein (6.3-8.2) g/dL Albumin (3.9-5) g/dL Albumin/Globulin Ratio % TSH (0.270-4.200) mlU/mL Urine Color Yellow (Yellow) Urine Turbidity Clear (Clear) Urine pH 6.0 (5.0-7.0) Ur Specific [place] 1.011 (1.003-1.030) Urine Protein <15 mg/dl (Negative) mg/dL Urine Glucose (UA) >=500 (Negative) mg/dL Urine Ketones Neg (Negative) mg/dL Urine Blood Neg (Negative) Urine Nitrite Neg (Negative) Urine Bilirubin Neg (Negative) Urine Urobilinogen < 2.0 (<2.0) mg/dL Ur Leukocyte Esterase Neg (Negative) Urine WBC (Auto) < 1.0 (0.0-6.0) /HPF Urine RBC (Auto) < 1.0 (0.0-6.0) /HPF Urine Mucus Few /HPF Salicylates (2.8-20.0) mg/dL Urine Opiates Screen Presumptive negative Urine Methadone Screen Presumptive negative Acetaminophen (10.0-30.0) ug/mL Ur Barbiturates Screen Presumptive negative Ur Phencyclidine Scrn Presumptive negative Ur Amphetamines Screen Presumptive negative U Benzodiazepines Scrn Presumptive negative Urine Cocaine Screen Presumptive positive U Marijuana (THC) Screen Presumptive negative Drugs of Abuse Note Disclamer Plasma/Serum Alcohol (0-0.07) % 04/07/18 04/07/18 04/07/18 Range/Units 02:30 02:30 02:30 WBC 5.9 (4.5-11.0) K/mm3 RBC 4.60 (3.65-5.03) M/mm3 Hgb 13.6 (11.8-15.2) gm/dl Hct 41.1 (35.5-45.6) % MCV 89 (84-94) fl MCH 30 (28-32) pg MCHC 33 (32-34) % RDW 13.7 (13.2-15.2) % Plt Count 272 (140-440) K/mm3 Lymph % (Auto) 12.5 L (13.4-35.0) % [place] % (Auto) 9.2 H (0.0-7.3) % Eos % (Auto) 0.9 (0.0-4.3) % Baso % (Auto) 1.0 (0.0-1.8) % Lymph # 0.7 L (1.2-5.4) K/mm3 [place] # 0.5 (0.0-0.8) K/mm3 Eos # 0.1 (0.0-0.4) K/mm3 Baso # 0.1 (0.0-0.1) K/mm3 Seg Neutrophils % 76.4 H (40.0-70.0) % Seg Neutrophils # 4.5 (1.8-7.7) K/mm3 PT (12.2-14.9) Sec. INR (0.87-1.13) APTT (24.2-36.6) Sec. Sodium 140 (137-145) mmol/L Potassium 3.2 L (3.6-5.0) mmol/L Chloride 96.8 L (98-107) mmol/L Carbon Dioxide 29 (22-30) mmol/L Anion Gap 17 mmol/L BUN 16 (9-20) mg/dL Creatinine 1.1 (0.8-1.5) mg/dL Estimated GFR > 60 ml/min BUN/Creatinine Ratio 15 % Glucose 34 L* (75-100) mg/dL POC Glucose (70-105) Lactic Acid (0.7-2.0) mmol/L Calcium 8.9 (8.4-10.2) mg/dL Total Bilirubin 0.20 (0.1-1.2) mg/dL AST 22 (5-40) units/L ALT 21 (7-56) units/L Alkaline Phosphatase 67 (35-129) units/L Ammonia (25-60) umol/L Total Creatine Kinase (55-170) units/L Troponin T (0.00-0.029) ng/mL Total Protein 6.5 (6.3-8.2) g/dL Albumin 4.2 (3.9-5) g/dL Albumin/Globulin Ratio 1.8 % TSH 1.580 (0.270-4.200) mlU/mL Urine Color (Yellow) Urine Turbidity (Clear) Urine pH (5.0-7.0) Ur Specific [place] (1.003-1.030) Urine Protein (Negative) mg/dL Urine Glucose (UA) (Negative) mg/dL Urine Ketones (Negative) mg/dL Urine Blood (Negative) Urine Nitrite (Negative) Urine Bilirubin (Negative) Urine Urobilinogen (<2.0) mg/dL Ur Leukocyte Esterase (Negative) Urine WBC (Auto) (0.0-6.0) /HPF Urine RBC (Auto) (0.0-6.0) /HPF Urine Mucus /HPF Salicylates (2.8-20.0) mg/dL Urine Opiates Screen Urine Methadone Screen Acetaminophen (10.0-30.0) ug/mL Ur Barbiturates Screen Ur Phencyclidine Scrn Ur Amphetamines Screen U Benzodiazepines Scrn Urine Cocaine Screen U Marijuana (THC) Screen Drugs of Abuse Note Plasma/Serum Alcohol (0-0.07) % 04/07/18 04/07/18 04/07/18 Range/Units 02:30 03:02 03:25 WBC (4.5-11.0) K/mm3 RBC (3.65-5.03) M/mm3 Hgb (11.8-15.2) gm/dl Hct (35.5-45.6) % MCV (84-94) fl MCH (28-32) pg MCHC (32-34) % RDW (13.2-15.2) % Plt Count (140-440) K/mm3 Lymph % (Auto) (13.4-35.0) % [place] % (Auto) (0.0-7.3) % Eos % (Auto) (0.0-4.3) % Baso % (Auto) (0.0-1.8) % Lymph # (1.2-5.4) K/mm3 [place] # (0.0-0.8) K/mm3 Eos # (0.0-0.4) K/mm3 Baso # (0.0-0.1) K/mm3 Seg Neutrophils % (40.0-70.0) % Seg Neutrophils # (1.8-7.7) K/mm3 PT (12.2-14.9) Sec. INR (0.87-1.13) APTT (24.2-36.6) Sec. Sodium (137-145) mmol/L Potassium (3.6-5.0) mmol/L Chloride (98-107) mmol/L Carbon Dioxide (22-30) mmol/L Anion Gap mmol/L BUN (9-20) mg/dL Creatinine (0.8-1.5) mg/dL Estimated GFR ml/min BUN/Creatinine Ratio % Glucose (75-100) mg/dL POC Glucose < 40 L (70-105) Lactic Acid 2.50 H* (0.7-2.0) mmol/L Calcium (8.4-10.2) mg/dL Total Bilirubin (0.1-1.2) mg/dL AST (5-40) units/L ALT (7-56) units/L Alkaline Phosphatase (35-129) units/L Ammonia (25-60) umol/L Total Creatine Kinase (55-170) units/L Troponin T (0.00-0.029) ng/mL Total Protein (6.3-8.2) g/dL Albumin (3.9-5) g/dL Albumin/Globulin Ratio % TSH (0.270-4.200) mlU/mL Urine Color (Yellow) Urine Turbidity (Clear) Urine pH (5.0-7.0) Ur Specific [place] (1.003-1.030) Urine Protein (Negative) mg/dL Urine Glucose (UA) (Negative) mg/dL Urine Ketones (Negative) mg/dL Urine Blood (Negative) Urine Nitrite (Negative) Urine Bilirubin (Negative) Urine Urobilinogen (<2.0) mg/dL Ur Leukocyte Esterase (Negative) Urine WBC (Auto) (0.0-6.0) /HPF Urine RBC (Auto) (0.0-6.0) /HPF Urine Mucus /HPF Salicylates (2.8-20.0) mg/dL Urine Opiates Screen Urine Methadone Screen Acetaminophen (10.0-30.0) ug/mL Ur Barbiturates Screen Ur Phencyclidine Scrn Ur Amphetamines Screen U Benzodiazepines Scrn Urine Cocaine Screen U Marijuana (THC) Screen Drugs of Abuse Note Plasma/Serum Alcohol < 0.01 (0-0.07) % 04/07/18 04/07/18 04/07/18 Range/Units 03:25 03:25 03:25 WBC (4.5-11.0) K/mm3 RBC (3.65-5.03) M/mm3 Hgb (11.8-15.2) gm/dl Hct (35.5-45.6) % MCV (84-94) fl MCH (28-32) pg MCHC (32-34) % RDW (13.2-15.2) % Plt Count (140-440) K/mm3 Lymph % (Auto) (13.4-35.0) % [place] % (Auto) (0.0-7.3) % Eos % (Auto) (0.0-4.3) % Baso % (Auto) (0.0-1.8) % Lymph # (1.2-5.4) K/mm3 [place] # (0.0-0.8) K/mm3 Eos # (0.0-0.4) K/mm3 Baso # (0.0-0.1) K/mm3 Seg Neutrophils % (40.0-70.0) % Seg Neutrophils # (1.8-7.7) K/mm3 PT 13.0 (12.2-14.9) Sec. INR 0.94 (0.87-1.13) APTT 20.0 L (24.2-36.6) Sec. Sodium (137-145) mmol/L Potassium (3.6-5.0) mmol/L Chloride (98-107) mmol/L Carbon Dioxide (22-30) mmol/L Anion Gap mmol/L BUN (9-20) mg/dL Creatinine (0.8-1.5) mg/dL Estimated GFR ml/min BUN/Creatinine Ratio % Glucose (75-100) mg/dL POC Glucose (70-105) Lactic Acid (0.7-2.0) mmol/L Calcium (8.4-10.2) mg/dL Total Bilirubin (0.1-1.2) mg/dL AST (5-40) units/L ALT (7-56) units/L Alkaline Phosphatase (35-129) units/L Ammonia 44.0 (25-60) umol/L Total Creatine Kinase 377 H (55-170) units/L Troponin T < 0.010 (0.00-0.029) ng/mL Total Protein (6.3-8.2) g/dL Albumin (3.9-5) g/dL Albumin/Globulin Ratio % TSH (0.270-4.200) mlU/mL Urine Color (Yellow) Urine Turbidity (Clear) Urine pH (5.0-7.0) Ur Specific [place] (1.003-1.030) Urine Protein (Negative) mg/dL Urine Glucose (UA) (Negative) mg/dL Urine Ketones (Negative) mg/dL Urine Blood (Negative) Urine Nitrite (Negative) Urine Bilirubin (Negative) Urine Urobilinogen (<2.0) mg/dL Ur Leukocyte Esterase (Negative) Urine WBC (Auto) (0.0-6.0) /HPF Urine RBC (Auto) (0.0-6.0) /HPF Urine Mucus /HPF Salicylates (2.8-20.0) mg/dL Urine Opiates Screen Urine Methadone Screen Acetaminophen (10.0-30.0) ug/mL Ur Barbiturates Screen Ur Phencyclidine Scrn Ur Amphetamines Screen U Benzodiazepines Scrn Urine Cocaine Screen U Marijuana (THC) Screen Drugs of Abuse Note Plasma/Serum Alcohol (0-0.07) % 04/07/18 04/07/18 04/07/18 Range/Units 03:25 03:25 04:16 WBC (4.5-11.0) K/mm3 RBC (3.65-5.03) M/mm3 Hgb (11.8-15.2) gm/dl Hct (35.5-45.6) % MCV (84-94) fl MCH (28-32) pg MCHC (32-34) % RDW (13.2-15.2) % Plt Count (140-440) K/mm3 Lymph % (Auto) (13.4-35.0) % [place] % (Auto) (0.0-7.3) % Eos % (Auto) (0.0-4.3) % Baso % (Auto) (0.0-1.8) % Lymph # (1.2-5.4) K/mm3 [place] # (0.0-0.8) K/mm3 Eos # (0.0-0.4) K/mm3 Baso # (0.0-0.1) K/mm3 Seg Neutrophils % (40.0-70.0) % Seg Neutrophils # (1.8-7.7) K/mm3 PT (12.2-14.9) Sec. INR (0.87-1.13) APTT (24.2-36.6) Sec. Sodium (137-145) mmol/L Potassium (3.6-5.0) mmol/L Chloride (98-107) mmol/L Carbon Dioxide (22-30) mmol/L Anion Gap mmol/L BUN (9-20) mg/dL Creatinine (0.8-1.5) mg/dL Estimated GFR ml/min BUN/Creatinine Ratio % Glucose (75-100) mg/dL POC Glucose 75 (70-105) Lactic Acid (0.7-2.0) mmol/L Calcium (8.4-10.2) mg/dL Total Bilirubin (0.1-1.2) mg/dL AST (5-40) units/L ALT (7-56) units/L Alkaline Phosphatase (35-129) units/L Ammonia (25-60) umol/L Total Creatine Kinase (55-170) units/L Troponin T (0.00-0.029) ng/mL Total Protein (6.3-8.2) g/dL Albumin (3.9-5) g/dL Albumin/Globulin Ratio % TSH (0.270-4.200) mlU/mL Urine Color (Yellow) Urine Turbidity (Clear) Urine pH (5.0-7.0) Ur Specific [place] (1.003-1.030) Urine Protein (Negative) mg/dL Urine Glucose (UA) (Negative) mg/dL Urine Ketones (Negative) mg/dL Urine Blood (Negative) Urine Nitrite (Negative) Urine Bilirubin (Negative) Urine Urobilinogen (<2.0) mg/dL Ur Leukocyte Esterase (Negative) Urine WBC (Auto) (0.0-6.0) /HPF Urine RBC (Auto) (0.0-6.0) /HPF Urine Mucus /HPF Salicylates < 0.3 L (2.8-20.0) mg/dL Urine Opiates Screen Urine Methadone Screen Acetaminophen 31.7 H (10.0-30.0) ug/mL Ur Barbiturates Screen Ur Phencyclidine Scrn Ur Amphetamines Screen U Benzodiazepines Scrn Urine Cocaine Screen U Marijuana (THC) Screen Drugs of Abuse Note Plasma/Serum Alcohol (0-0.07) % 04/07/18 04/07/18 Range/Units 05:39 05:46 WBC (4.5-11.0) K/mm3 RBC (3.65-5.03) M/mm3 Hgb (11.8-15.2) gm/dl Hct (35.5-45.6) % MCV (84-94) fl MCH (28-32) pg MCHC (32-34) % RDW (13.2-15.2) % Plt Count (140-440) K/mm3 Lymph % (Auto) (13.4-35.0) % [place] % (Auto) (0.0-7.3) % Eos % (Auto) (0.0-4.3) % Baso % (Auto) (0.0-1.8) % Lymph # (1.2-5.4) K/mm3 [place] # (0.0-0.8) K/mm3 Eos # (0.0-0.4) K/mm3 Baso # (0.0-0.1) K/mm3 Seg Neutrophils % (40.0-70.0) % Seg Neutrophils # (1.8-7.7) K/mm3 PT (12.2-14.9) Sec. INR (0.87-1.13) APTT (24.2-36.6) Sec. Sodium (137-145) mmol/L Potassium (3.6-5.0) mmol/L Chloride (98-107) mmol/L Carbon Dioxide (22-30) mmol/L Anion Gap mmol/L BUN (9-20) mg/dL Creatinine (0.8-1.5) mg/dL Estimated GFR ml/min BUN/Creatinine Ratio % Glucose (75-100) mg/dL POC Glucose 96 (70-105) Lactic Acid 2.10 H* (0.7-2.0) mmol/L Calcium (8.4-10.2) mg/dL Total Bilirubin (0.1-1.2) mg/dL AST (5-40) units/L ALT (7-56) units/L Alkaline Phosphatase (35-129) units/L Ammonia (25-60) umol/L Total Creatine Kinase (55-170) units/L Troponin T (0.00-0.029) ng/mL Total Protein (6.3-8.2) g/dL Albumin (3.9-5) g/dL Albumin/Globulin Ratio % TSH (0.270-4.200) mlU/mL Urine Color (Yellow) Urine Turbidity (Clear) Urine pH (5.0-7.0) Ur Specific [place] (1.003-1.030) Urine Protein (Negative) mg/dL Urine Glucose (UA) (Negative) mg/dL Urine Ketones (Negative) mg/dL Urine Blood (Negative) Urine Nitrite (Negative) Urine Bilirubin (Negative) Urine Urobilinogen (<2.0) mg/dL Ur Leukocyte Esterase (Negative) Urine WBC (Auto) (0.0-6.0) /HPF Urine RBC (Auto) (0.0-6.0) /HPF Urine Mucus /HPF Salicylates (2.8-20.0) mg/dL Urine Opiates Screen Urine Methadone Screen Acetaminophen (10.0-30.0) ug/mL Ur Barbiturates Screen Ur Phencyclidine Scrn Ur Amphetamines Screen U Benzodiazepines Scrn Urine Cocaine Screen U Marijuana (THC) Screen Drugs of Abuse Note Plasma/Serum Alcohol (0-0.07) % - EKG Data -: EKG Interpreted by Me EKG shows normal: sinus rhythm Rate: normal (82) When compared to previous EKG there are: no significant change Interpretation: nonspecific ST-T wave tavo 04/07/18 04:33 Prolonged QT. No STEMI. - Radiology Data Radiology results: report reviewed, image reviewed CT Head and CXR showed no acute findings. - Core Measures AMI Core Measures Followed: Yes - NEXUS Criteria Focal neurological deficit present: No Midline spinal tenderness present: No Critical care attestation.: If time is entered above; I have spent that time in minutes in the direct care of this critically ill patient, excluding procedure time. ED Disposition Clinical Impression: IDDM (insulin dependent diabetes mellitus), Hypoglycemia, Cocaine abuse Altered mental status Qualifiers: Altered mental status type: unspecified Qualified Code(s): R41.82 - Altered mental status, unspecified Hypothermia Qualifiers: Encounter type: initial encounter Qualified Code(s): T68.XXXA - Hypothermia, initial encounter Disposition: OP ADMIT IP TO THIS HOSP Is pt being admited?: Yes Does the pt Need Aspirin: No Condition: Stable Instructions: Diabetes Mellitus Type 2 in Adults (ED) Referrals: PRIMARY CARE, [Primary Care Provider] - 3-5 Days Time of Disposition: 04:39
[2018-04-07 03:11] LABS: Cocaine Screen,Urine PRESUMPTIVE POSITIVE
[2018-04-07 03:14] LABS: Alanine Aminotransferase 21 units/L (7-56); Albumin 4.2 g/dL (3.9-5); BUN/Creatinine Ratio 15; Blood Urea Nitrogen 16 mg/dL (9-20); Calcium 8.9 mg/dL (8.4-10.2); Hemolysis Index 10
[2018-04-07] MEDS ORDERED: D50W (25GM) Syringe IV PRN ×2 (03:23→06:42)
[2018-04-07 03:47] LABS: INR 0.94 (0.87-1.13)
[2018-04-07] MEDS ORDERED: D5NS 1,000 ML IV SCH (04:00)
--- NOTE | 2018-04-07 04:18 | Cat Scan Report ---
FINAL REPORT EXAM: CT HEAD/BRAIN WO CON HISTORY: altered mental status TECHNIQUE: CT imaging acquired through the head without intravenous contrast. Transaxial reformatio ns are provided. PRIORS: 12/11/2017 FINDINGS: The ventricles, cisterns and sulci are normal. No intraparenchymal or extra-axial mass, hemorrhage, o r mass effect. Perez and white-matter differentiation is within normal limits. Normal spherical shape of the globes. Paranasal sinuses and mastoid air cells are clear. No skull or facial fracture visualized. IMPRESSION: No acute intracranial abnormality.
--- NOTE | 2018-04-07 04:22 | XRay Report ---
FINAL REPORT EXAM: XR CHEST 1V AP HISTORY: altered mental status TECHNIQUE: AP portable view(s) of the chest obtained. PRIORS: 12/17/2017 FINDINGS: No mediastinal shift. Cardiac silhouette is not enlarged for portable technique. Left chest pacemaker . Mild hypoaeration of the lungs. No pneumothorax, effusion, or focal pulmonary opacity identified. N o acute skeletal findings. IMPRESSION: No acute pulmonary finding identified.
[2018-04-07] MEDS ORDERED: D10W 1,000 ML IV SCH (05:00)
[2018-04-07] MEDS: KCL 10MEQ/100ML 10 MEQ/100 ML BAG IV SCH ×2 (05:59→06:57)
--- NOTE | 2018-04-07 10:47 | History and Physical Report ---
History of Present Illness Date of examination: 04/07/18 Date of admission: 04/07/18 06:41 Chief complaint: Low blood glucose, Dizziness History of present illness: Patient is 52 yo with diabetes, cardiomyopathy s/p AICD, CAD. He presented with dizziness, altered mental status. he was found to be hypoglycemic with glucose 34. he was given 50% Dextrose and started on 10%bDExtrose. He denies chest pain or shortness of breath. he states he has been feeling dizzy for few days. he also complained of mild abdominal pain 3/10, lower abdomen with no radiation. He denied vomiting. He will be admitted to manage hypoglycemia. Of note, when he first presented he was lethargic when seen by ED physician. By the time I saw him he was able to give more history. Past History Past Medical History: CAD, diabetes, hypertension, hyperlipidemia, other (cocaine use) Past Surgical History: appendectomy, Other (AICD placement) Social history: single, full code, other (Quit smoking, Alcohol occasionally). denies: smoking Medications and Allergies Allergies Allergy/AdvReac Type Severity Reaction Status Date / Time No Known Allergies Allergy Verified 01/24/18 08:29 Home Medications Medication Instructions Recorded Confirmed Last Taken Type Insulin Aspart Prot/Aspart(Nf) 7 units SQ BID 12/06/17 01/20/18 Unknown History [Novolog Mix 70/30] Ciprofloxacin HCl [Ciprofloxacin 500 mg PO Q12H #14 tab 01/30/18 Unknown Rx TAB] HYDROcodone/APAP 5-325 [[place] 1 - 2 each PO Q6HR PRN #14 tablet 01/30/18 Unknown Rx 5/325] Cyclobenzaprine [Flexeril] 10 mg PO TID PRN #30 tablet 02/07/18 Unknown Rx Menthol/Camphor [[place] 1 unit TP QID PRN 60 Days #60 02/07/18 Unknown Rx Ointment] oint...g. Naproxen [Naprosyn] 500 mg PO BID PRN #30 tablet 02/07/18 Unknown Rx Dicyclomine [Bentyl] 20 mg PO QID PRN #20 tablet 04/01/18 Unknown Rx Ondansetron [Zofran Odt] 4 mg PO Q8HR PRN #20 tab.rapdis 04/01/18 Unknown Rx Promethazine [Phenergan TAB] 25 mg PO Q6HR PRN #20 tab 04/01/18 Unknown Rx Active Meds: Active Medications Dextrose (D50w (25gm) Syringe) 50 ml IV PRN PRN PRN Reason: Hypoglycemia Dextrose (D10w) 1,000 mls @ 150 mls/hr IV DIRECT ROSALINDA Last Admin: 04/07/18 04:38 Dose: 150 mls/hr Documented by: Exam - Physical Exam Narrative exam: GEN: Not in acute distress, HEENT: Normocephalic, atraumatic, Neck: supple, No JVD Lungs: Clear to auscultation, no wheeze Heart:S1 and S2 regular, no murmurs, rubs or gallop, Abd:soft, non tender, non distended, normal bowel sounds Ext: No edema, no clubbing or cyanosis Neuro: Awake,alert, oriented x 3, No focal signs - Constitutional Vitals: Temp Pulse Resp BP Pulse Ox 98.2 F 85 20 104/57 98 04/07/18 10:06 04/07/18 10:06 04/07/18 10:06 04/07/18 10:06 04/07/18 10:06 Results - Labs CBC & Chem 7: 04/07/18 02:30 04/07/18 02:30 Labs: Abnormal lab results 04/07/18 04/07/18 04/07/18 Range/Units 02:30 02:30 02:30 Lymph % (Auto) 12.5 L (13.4-35.0) % [place] % (Auto) 9.2 H (0.0-7.3) % Lymph # 0.7 L (1.2-5.4) K/mm3 Seg Neutrophils % 76.4 H (40.0-70.0) % APTT (24.2-36.6) Sec. Potassium 3.2 L (3.6-5.0) mmol/L Chloride 96.8 L (98-107) mmol/L Glucose 34 L* (75-100) mg/dL POC Glucose (70-105) Hemoglobin A1c 14.1 H (4-6) % Lactic Acid (0.7-2.0) mmol/L Total Creatine Kinase (55-170) units/L Salicylates (2.8-20.0) mg/dL Acetaminophen (10.0-30.0) ug/mL 04/07/18 04/07/18 04/07/18 Range/Units 03:02 03:25 03:25 Lymph % (Auto) (13.4-35.0) % [place] % (Auto) (0.0-7.3) % Lymph # (1.2-5.4) K/mm3 Seg Neutrophils % (40.0-70.0) % APTT 20.0 L (24.2-36.6) Sec. Potassium (3.6-5.0) mmol/L Chloride (98-107) mmol/L Glucose (75-100) mg/dL POC Glucose < 40 L (70-105) Hemoglobin A1c (4-6) % Lactic Acid 2.50 H* (0.7-2.0) mmol/L Total Creatine Kinase (55-170) units/L Salicylates (2.8-20.0) mg/dL Acetaminophen (10.0-30.0) ug/mL 04/07/18 04/07/18 04/07/18 Range/Units 03:25 03:25 03:25 Lymph % (Auto) (13.4-35.0) % [place] % (Auto) (0.0-7.3) % Lymph # (1.2-5.4) K/mm3 Seg Neutrophils % (40.0-70.0) % APTT (24.2-36.6) Sec. Potassium (3.6-5.0) mmol/L Chloride (98-107) mmol/L Glucose (75-100) mg/dL POC Glucose (70-105) Hemoglobin A1c (4-6) % Lactic Acid (0.7-2.0) mmol/L Total Creatine Kinase 377 H (55-170) units/L Salicylates < 0.3 L (2.8-20.0) mg/dL Acetaminophen 31.7 H (10.0-30.0) ug/mL 04/07/18 04/07/18 Range/Units 05:39 09:44 Lymph % (Auto) (13.4-35.0) % [place] % (Auto) (0.0-7.3) % Lymph # (1.2-5.4) K/mm3 Seg Neutrophils % (40.0-70.0) % APTT (24.2-36.6) Sec. Potassium (3.6-5.0) mmol/L Chloride (98-107) mmol/L Glucose (75-100) mg/dL POC Glucose 134 H (70-105) Hemoglobin A1c (4-6) % Lactic Acid 2.10 H* (0.7-2.0) mmol/L Total Creatine Kinase (55-170) units/L Salicylates (2.8-20.0) mg/dL Acetaminophen (10.0-30.0) ug/mL Assessment and Plan Hypoglycemia Admit to Telemetry Started on 10% Dextrose Regular diet for now until glucose>250 Diabetes mellitus type 2. Insulin on hold because of hypoglycemia CAD. Stable No chest pain cardiomyopathy s/p AICD Cocaine abuse. Counseled o quitting Full code status
[2018-04-07] MEDS ORDERED: SODIUM CHLORIDE FLUSH SYRINGE 10 ML IV PRN (12:15)
[2018-04-07] MEDS ORDERED: ZOFRAN IV PRN (12:15)
[2018-04-07] MEDS ORDERED: TYLENOL PO PRN (12:15)
[2018-04-07] MEDS: PEPCID PO SCH ×2 (13:00→21:42)
[2018-04-07] MEDS: SODIUM CHLORIDE FLUSH SYRINGE 10 ML IV SCH (21:42)
[2018-04-07] MEDS: MORPHINE IV PRN (21:42)
[2018-04-08] MEDS: MORPHINE IV PRN ×2 (04:46→09:57)
[2018-04-08 06:36] LABS: BUN/Creatinine Ratio 12; Blood Urea Nitrogen 12 mg/dL (9-20); Calcium 8.5 mg/dL (8.4-10.2); Hemolysis Index 6
[2018-04-08] MEDS: SODIUM CHLORIDE FLUSH SYRINGE 10 ML IV SCH ×2 (09:49→21:00)
[2018-04-08] MEDS: PEPCID PO SCH ×2 (09:49→20:59)
--- NOTE | 2018-04-08 11:03 | Consultation ---
History of Present Illness Consult date: 04/08/18 Requesting physician: CHRISTINA ROMO Consult reason: syncope History of present illness: The pt is a 52 YO male with a past history of recurrent syncope, cardiomyopathy (currently normalized EF), PPM, diabetes, peripheral neuropathy, cocaine use. He has been seen by our practice on prior hospitalization. He admits that he has not been compliant with any outpatient cardiology follow up. He presented with complaints of altered mental status. He states that he became confused at home and his uncle called EMS. He was noted to be hypoglycemic following arrival with BG 34. He suffered a syncopal episode yesterday afternoon and thus cardiology has been consulted. Pt reports that he was getting up to go to the bathroom when he developed chest pain and then lost consciousness. He awoke on the floor. Telemetry review shows NSR, no arrhythmias noted. Pt denies any current chest pain, palpitations, n/v, diaphoresis. He does admit to SOB and DEGROOT but this is chronic and unchanged from baseline. Pt was hospitalized in 09/2016 at [facility]. Per the records, he was admitted there at that time for syncope and chest pain. A [employer] pacemaker was placed for AV block, his EF was 30-35%, AICD was not placed secondary to his ongoing drug use (cocaine). Echo done 09/2016 showed EF 30-35%, mod reduced RV systolic function. He left [facility] AMA before stress test could be obtained. Echo done 01/2018 showed EF 50-55%, trace MR and TR. Past History Past Medical History: diabetes, heart failure, other (cocaine use) Past Surgical History: appendectomy, Other (PPM ) Social history: single, full code, other (Quit smoking, Alcohol occasionally, cocaine use). denies: smoking Medications and Allergies Allergies Allergy/AdvReac Type Severity Reaction Status Date / Time No Known Allergies Allergy Verified 01/24/18 08:29 Home Medications Medication Instructions Recorded Confirmed Last Taken Type Insulin Aspart Prot/Aspart(Nf) 7 units SQ BID 12/06/17 01/20/18 Unknown History [Novolog Mix 70/30] Ciprofloxacin HCl [Ciprofloxacin 500 mg PO Q12H #14 tab 01/30/18 Unknown Rx TAB] HYDROcodone/APAP 5-325 [[place] 1 - 2 each PO Q6HR PRN #14 tablet 01/30/18 Unknown Rx 5/325] Cyclobenzaprine [Flexeril] 10 mg PO TID PRN #30 tablet 02/07/18 Unknown Rx Menthol/Camphor [[place] 1 unit TP QID PRN 60 Days #60 02/07/18 Unknown Rx Ointment] oint...g. Naproxen [Naprosyn] 500 mg PO BID PRN #30 tablet 02/07/18 Unknown Rx Dicyclomine [Bentyl] 20 mg PO QID PRN #20 tablet 04/01/18 Unknown Rx Ondansetron [Zofran Odt] 4 mg PO Q8HR PRN #20 tab.rapdis 04/01/18 Unknown Rx Promethazine [Phenergan TAB] 25 mg PO Q6HR PRN #20 tab 04/01/18 Unknown Rx Active Meds: Active Medications Acetaminophen (Tylenol) 650 mg PO Q4H PRN PRN Reason: Pain MILD(1-3)/Fever >100.5/CHAVIRA Last Admin: 04/07/18 17:08 Dose: 650 mg Documented by: Dextrose (D50w (25gm) Syringe) 50 ml IV PRN PRN PRN Reason: Hypoglycemia Famotidine (Pepcid) 20 mg PO BID [facility] Last Admin: 04/08/18 09:49 Dose: 20 mg Documented by: Morphine Sulfate (Morphine) 2 mg IV Q4H PRN PRN Reason: Pain, Moderate (4-6) Last Admin: 04/08/18 09:57 Dose: 2 mg Documented by: Ondansetron HCl (Zofran) 4 mg IV Q8H PRN PRN Reason: Nausea And Vomiting Sodium Chloride (Sodium Chloride Flush Syringe 10 Ml) 10 ml IV BID [facility] Last Admin: 04/08/18 09:49 Dose: 10 ml Documented by: Sodium Chloride (Sodium Chloride Flush Syringe 10 Ml) 10 ml IV PRN PRN PRN Reason: LINE FLUSH Last Admin: 04/08/18 04:49 Dose: 10 ml Documented by: Review of Systems Constitutional: no weight loss, no weight gain, no fever, no chills, no sweats Ears, nose, mouth and throat: no ear pain, no nose pain, no sinus pressure, no sinus pain Cardiovascular: chest pain, orthopnea (chronic), syncope, lightheadedness, shortness of breath (chronic), dyspnea on exertion (chronic), no palpitations, no rapid/irregular heart beat, no edema, no leg edema Respiratory: shortness of breath, dyspnea on exertion, no cough, no congestion, no wheezing, no pain on inspiration Gastrointestinal: no abdominal pain, no nausea, no vomiting, no diarrhea, no constipation, no change in bowel habits Genitourinary Male: no dysuria, no hematuria, no flank pain, no discharge, no urinary frequency, no urinary hesitancy Musculoskeletal: no neck stiffness, no neck pain, no shooting arm pain, no arm numbness/tingling, no low back pain, no shooting leg pain, no leg numbness/ tingling Integumentary: no rash, no pruritis, no redness, no sores, no wounds Neurological: syncope, no head injury, no paralysis, no weakness, no par athesias, no numbness, no tingling, no seizures Psychiatric: no anxiety Endocrine: no cold intolerance, no heat intolerance Hematologic/Lymphatic: no easy bruising, no easy bleeding Allergic/Immunologic: no urticaria, no wheezing Physical Examination Vital Signs Pulse 77 04/07/18 02:10 General appearance: no acute distress HEENT: Positive: PERRL, Normocephaly, Mucus Membranes Moist Neck: Positive: neck supple, trachea midline Cardiac: Positive: Reg Rate and Rhythm, S1/S2 Lungs: Positive: clear to auscultation Neuro: Positive: Grossly Intact Abdomen: Positive: Soft. Negative: Tender Skin: Negative: Rash, Wound Musculoskeletal: No Pain Extremities: Absent: edema Results 04/07/18 02:30 04/08/18 05:36 Comprehensive Metabolic Panel 04/08/18 Range/Units 05:36 Sodium 141 (137-145) mmol/L Potassium 4.2 D (3.6-5.0) mmol/L Chloride 105.5 (98-107) mmol/L Carbon Dioxide 25 (22-30) mmol/L BUN 12 (9-20) mg/dL Creatinine 1.0 (0.8-1.5) mg/dL Glucose 122 H (75-100) mg/dL Calcium 8.5 (8.4-10.2) mg/dL - Imaging and Cardiology Echo: report reviewed (09/2016 showed EF 30-35%, mod reduced RV systolic function. ) EKG: report reviewed, image reviewed EKG interpretations - Telemetry EKG Rhythm: Sinus Rhythm - EKG Sinus rhythms and dysrhythmias: sinus rhythm Assessment and Plan Interrogate PPM. Cont telemetry. Obtain orthostatics. The patient has been seen in conjunction with Dr. Dougherty who agrees with the assessment and plan of care - Patient Problems (1) Altered mental status Current Visit: Yes Status: Resolved Qualifiers: Altered mental status type: unspecified Qualified Code(s): R41.82 - Altered mental status, unspecified (2) Hypoglycemia Current Visit: Yes Status: Acute (3) Diabetes Current Visit: Yes Status: Chronic (4) Syncope Current Visit: No Status: Acute (5) History of cardiomyopathy Current Visit: Yes Status: Chronic (6) Cardiac pacemaker in situ Current Visit: No Status: Chronic (7) Medical non-compliance Current Visit: Yes Status: Chronic (8) Cocaine abuse Current Visit: Yes Status: Chronic
--- NOTE | 2018-04-08 11:54 | Progress Note ---
Assessment and Plan Assessment and plan: Hypoglycemia Admitted to Telemetry Now resolved after 10% Dextrose infusion Diabetes mellitus type 2. Insulin on hold because of hypoglycemia CAD. Stable No chest pain Syncope last night. Consult Cardiology cardiomyopathy s/p AICD Cocaine abuse. Counseled on quitting Full code status History Interval history: Passed out last night No chest pain Hospitalist Physical - Physical exam Narrative exam: GEN: Not in acute distress, HEENT: Normocephalic, atraumatic, Neck: supple, No JVD Lungs: Clear to auscultation, no wheeze Heart:S1 and S2 regular, no murmurs, rubs or gallop, Abd:soft, non tender, non distended, normal bowel sounds Ext: No edema, no clubbing or cyanosis Neuro: Awake,alert, oriented x 3, No focal signs - Constitutional Vitals: Temp Pulse Resp BP Pulse Ox 98.5 F 86 20 96/55 98 04/08/18 10:48 04/08/18 11:12 04/08/18 10:48 04/08/18 10:48 04/08/18 10:48 General appearance: Present: no acute distress Results - Labs CBC & Chem 7: 04/07/18 02:30 04/08/18 05:36 Labs: Laboratory Last Values WBC 5.9 K/mm3 (4.5-11.0) 04/07/18 02:30 RBC 4.60 M/mm3 (3.65-5.03) 04/07/18 02:30 Hgb 13.6 gm/dl (11.8-15.2) 04/07/18 02:30 Hct 41.1 % (35.5-45.6) 04/07/18 02:30 MCV 89 fl (84-94) 04/07/18 02:30 MCH 30 pg (28-32) 04/07/18 02:30 MCHC 33 % (32-34) 04/07/18 02:30 RDW 13.7 % (13.2-15.2) 04/07/18 02:30 Plt Count 272 K/mm3 (140-440) 04/07/18 02:30 Lymph % (Auto) 12.5 % (13.4-35.0) L 04/07/18 02:30 [place] % (Auto) 9.2 % (0.0-7.3) H 04/07/18 02:30 Eos % (Auto) 0.9 % (0.0-4.3) 04/07/18 02:30 Baso % (Auto) 1.0 % (0.0-1.8) 04/07/18 02:30 Lymph # 0.7 K/mm3 (1.2-5.4) L 04/07/18 02:30 [place] # 0.5 K/mm3 (0.0-0.8) 04/07/18 02:30 Eos # 0.1 K/mm3 (0.0-0.4) 04/07/18 02:30 Baso # 0.1 K/mm3 (0.0-0.1) 04/07/18 02:30 Seg Neutrophils % 76.4 % (40.0-70.0) H 04/07/18 02:30 Seg Neutrophils # 4.5 K/mm3 (1.8-7.7) 04/07/18 02:30 PT 13.0 Sec. (12.2-14.9) 04/07/18 03:25 INR 0.94 (0.87-1.13) 04/07/18 03:25 APTT 20.0 Sec. (24.2-36.6) L 04/07/18 03:25 Sodium 141 mmol/L (137-145) 04/08/18 05:36 Potassium 4.2 mmol/L (3.6-5.0) D 04/08/18 05:36 Chloride 105.5 mmol/L (98-107) 04/08/18 05:36 Carbon Dioxide 25 mmol/L (22-30) 04/08/18 05:36 Anion Gap 15 mmol/L 04/08/18 05:36 BUN 12 mg/dL (9-20) 04/08/18 05:36 Creatinine 1.0 mg/dL (0.8-1.5) 04/08/18 05:36 Estimated GFR > 60 ml/min 04/08/18 05:36 BUN/Creatinine Ratio 12 % 04/08/18 05:36 Glucose 122 mg/dL (75-100) H 04/08/18 05:36 POC Glucose 175 (70-105) H 04/08/18 10:48 Hemoglobin A1c 14.1 % (4-6) H 04/07/18 02:30 Lactic Acid 1.70 mmol/L (0.7-2.0) 04/07/18 07:18 Calcium 8.5 mg/dL (8.4-10.2) 04/08/18 05:36 Total Bilirubin 0.20 mg/dL (0.1-1.2) 04/07/18 02:30 AST 22 units/L (5-40) 04/07/18 02:30 ALT 21 units/L (7-56) 04/07/18 02:30 Alkaline Phosphatase 67 units/L (35-129) 04/07/18 02:30 Ammonia 44.0 umol/L (25-60) 04/07/18 03:25 Total Creatine Kinase 377 units/L (55-170) H 04/07/18 03:25 Troponin T < 0.010 ng/mL (0.00-0.029) 04/07/18 03:25 Total Protein 6.5 g/dL (6.3-8.2) 04/07/18 02:30 Albumin 4.2 g/dL (3.9-5) 04/07/18 02:30 Albumin/Globulin Ratio 1.8 % 04/07/18 02:30 TSH 1.580 mlU/mL (0.270-4.200) 04/07/18 02:30 Urine Color Yellow (Yellow) 04/07/18 02:30 Urine Turbidity Clear (Clear) 04/07/18 02:30 Urine pH 6.0 (5.0-7.0) 04/07/18 02:30 Ur Specific [place] 1.011 (1.003-1.030) 04/07/18 02:30 Urine Protein <15 mg/dl mg/dL (Negative) 04/07/18 02:30 Urine Glucose (UA) >=500 mg/dL (Negative) 04/07/18 02:30 Urine Ketones Neg mg/dL (Negative) 04/07/18 02:30 Urine Blood Neg (Negative) 04/07/18 02:30 Urine Nitrite Neg (Negative) 04/07/18 02:30 Urine Bilirubin Neg (Negative) 04/07/18 02:30 Urine Urobilinogen < 2.0 mg/dL (<2.0) 04/07/18 02:30 Ur Leukocyte Esterase Neg (Negative) 04/07/18 02:30 Urine WBC (Auto) < 1.0 /HPF (0.0-6.0) 04/07/18 02:30 Urine RBC (Auto) < 1.0 /HPF (0.0-6.0) 04/07/18 02:30 Urine Mucus Few /HPF 04/07/18 02:30 Salicylates < 0.3 mg/dL (2.8-20.0) L 04/07/18 03:25 Urine Opiates Screen Presumptive negative 04/07/18 02:30 Urine Methadone Screen Presumptive negative 04/07/18 02:30 Acetaminophen 21.3 ug/mL (10.0-30.0) 04/07/18 07:18 Ur Barbiturates Screen Presumptive negative 04/07/18 02:30 Ur Phencyclidine Scrn Presumptive negative 04/07/18 02:30 Ur Amphetamines Screen Presumptive negative 04/07/18 02:30 U Benzodiazepines Scrn Presumptive negative 04/07/18 02:30 Urine Cocaine Screen Presumptive positive 04/07/18 02:30 U Marijuana (THC) Screen Presumptive negative 04/07/18 02:30 Drugs of Abuse Note Disclamer 04/07/18 02:30 Plasma/Serum Alcohol < 0.01 % (0-0.07) 04/07/18 02:30
[2018-04-08] MEDS: NORCO 5/325 PO PRN ×2 (16:58→21:48)
[2018-04-08] MEDS: LOVENOX SUB-Q SCH (23:02)
[2018-04-09] MEDS: LOVENOX SUB-Q SCH (00:14)
[2018-04-09] MEDS: MORPHINE IV PRN ×2 (00:14→09:57)
[2018-04-09 09:07] VITALS: BP 103/70
[2018-04-09 11:49] LABS: BUN/Creatinine Ratio 10; Blood Urea Nitrogen 9 mg/dL (9-20); Calcium 8.7 mg/dL (8.4-10.2); Hemolysis Index 25
--- NOTE | 2018-04-09 13:26 | Progress Note ---
Assessment and Plan PPM interrogation revealed normal device function, one episode of tachycardia, no bradyarrhythmias noted. Currently stable cardiac status. Pt may discharge home from cardiology standpoint on home cardiac regimen. Recommend pt follow up in our office with Dr. Dougherty within 1-2 weeks of hospital discharge ([phone]). The patient has been seen in conjunction with Dr. Dougherty who agrees with the assessment and plan of care - Patient Problems (1) Altered mental status Current Visit: Yes Status: Resolved Qualifiers: Altered mental status type: unspecified Qualified Code(s): R41.82 - Altered mental status, unspecified (2) Hypoglycemia Current Visit: Yes Status: Acute (3) Diabetes Current Visit: Yes Status: Chronic (4) Syncope Current Visit: No Status: Acute (5) History of cardiomyopathy Current Visit: Yes Status: Chronic (6) Cardiac pacemaker in situ Current Visit: No Status: Chronic (7) Medical non-compliance Current Visit: Yes Status: Chronic (8) Cocaine abuse Current Visit: Yes Status: Chronic Subjective Date of service: 04/09/18 Principal diagnosis: syncope Interval history: pt resting in bed, no current cardiac complaints. He reports that he fell down yesterday while walking on the unit, he fell because he got weak, he did not lose consciousness. tele reviewed - in SR, intermittent pacing, no arrhythmias. Objective Last Vital Signs Temp 98.9 F 04/09/18 09:05 Pulse 82 04/09/18 09:05 Resp 20 04/09/18 09:05 BP 103/70 04/09/18 09:05 Pulse Ox 96 04/09/18 09:05 - Physical Examination General: No Apparent Distress HEENT: Positive: PERRL, Normocephaly, Mucus Membranes Moist Neck: Positive: neck supple, trachea midline Cardiac: Positive: Reg Rate and Rhythm, S1/S2 Lungs: Positive: clear to auscultation Neuro: Positive: Grossly Intact Abdomen: Positive: Soft. Negative: Tender Skin: Negative: Rash, Wound Musculoskeletal: No Pain Extremities: Absent: edema - Labs and Meds Comprehensive Metabolic Panel 04/09/18 Range/Units 10:51 Sodium 138 (137-145) mmol/L Potassium 4.0 (3.6-5.0) mmol/L Chloride 97.8 L (98-107) mmol/L Carbon Dioxide 29 (22-30) mmol/L BUN 9 (9-20) mg/dL Creatinine 0.9 (0.8-1.5) mg/dL Glucose 232 H (75-100) mg/dL Calcium 8.7 (8.4-10.2) mg/dL - Imaging and Cardiology EKG: report reviewed, image reviewed Echo: report reviewed (09/2016 showed EF 30-35%, mod reduced RV systolic function . ) - Telemetry EKG Rhythm: Sinus Rhythm - EKG Sinus rhythms and dysrhythmias: sinus rhythm
--- NOTE | 2018-04-09 13:58 | Discharge Summary ---
Providers - Providers Date of Admission: 04/07/18 06:41 Date of discharge: 04/09/18 Attending physician: CHRISTINA ROMO 04/07/18 Consult to Case Management [CONS] Routine Services Needed at Discharge: Other Notified:: case management Comment:: angela planning 04/08/18 10:47 Consult to Physician [CONS] Routine Comment: CONSULT - COMPLETED Consulting Provider: CAYLA MAHMOOD Physician Instructions: Reason For Exam: syncope Primary care physician: SUPERVISOR GENERAL Hospitalization Condition: Fair Hospital course: Patient is 52 yo with diabetes, cardiomyopathy s/p AICD, CAD. He presented with dizziness, altered mental status. He was found to be hypoglycemic with glucose 34. Patient was given 50% Dextrose and started on 10% Dextrose. He was admitted . patient had episode of syncope. Cardiology was consulted and he was evaluated. pacemaker was interrogated, found to be functioning properly. However patient suddenly left against medical advice on 04/09/18. Total time spent on discharge, 31 mins Disposition: DC-[id number] LEFT AGAINST MED ADVICE - Discharge Diagnoses (1) Hypoglycemia Status: Acute (2) Left against medical advice Status: Acute (3) Syncope Status: Acute (4) HLD (hyperlipidemia) Status: Chronic Qualifiers: Hyperlipidemia type: mixed hyperlipidemia Qualified Code(s): E78.2 - Mixed hyperlipidemia (5) HTN (hypertension) Status: Chronic (6) Medical non-compliance Status: Chronic (7) Presence of permanent cardiac pacemaker Status: Acute (8) CAD (coronary artery disease) Status: Acute Core Measure Documentation - Palliative Care Palliative Care/ Comfort Measures: Not Applicable - Core Measures Any of the following diagnoses?: none Exam - Constitutional Vitals: Temp Pulse Resp BP Pulse Ox 98.9 F 82 20 103/70 96 04/09/18 09:05 04/09/18 09:05 04/09/18 09:05 04/09/18 09:05 04/09/18 09:05 Plan Activity: no restrictions Diet: low salt, diabetic Additional Instructions: 1.Follow up with PCP or [facility] in 1 week. 2.Follow up with cardiology in 1 week. 3.avoid cocaine. 4.Follow up with Urology in 2-3 days. 4.Follow up with Dr. Rodarte, Urology in 2-3 days Follow up with: PRIMARY MD DASIA [Primary Care Provider] - 3-5 Days Forms: AMA Form
--- NOTE | 2018-04-09 17:26 | Event Note ---
Date: 04/09/18 Patient left against medical advice.
== END 2018-04-09 17:20 | disposition left against medical advice (07) | DRG 638 ==
LOC: ED 02:00 → 4A 06:41
PROVIDERS: ADMIT Internal Medicine; ATTEND Internal Medicine
PROC: 4B02XSZ Measurement of Cardiac Pacemaker, External Approach (ICD-10-PCS; principal; 2018-04-07)
DX: E11.649 Type 2 diabetes mellitus with hypoglycemia without coma (principal); I42.9 Cardiomyopathy, unspecified; R41.82 Altered mental status, unspecified; R55 Syncope and collapse; F14.10 Cocaine abuse, uncomplicated; I25.10 Atherosclerotic heart disease of native coronary artery without angina pectoris; I50.9 Heart failure, unspecified; I11.0 Hypertensive heart disease with heart failure; J44.9 Chronic obstructive pulmonary disease, unspecified; T68.XXXA Hypothermia, initial encounter; Z95.810 Presence of automatic (implantable) cardiac defibrillator; Z90.49 Acquired absence of other specified parts of digestive tract; Z91.14 Patient's other noncompliance with medication regimen; Z71.51 Drug abuse counseling and surveillance of drug abuser; Z87.891 Personal history of nicotine dependence; Z72.89 Other problems related to lifestyle; Z86.73 Personal history of transient ischemic attack (TIA), and cerebral infarction without residual deficits
CPT/HCPCS: 36415; 70450; 71045; 80048; 80053; 80307; 80320; 81001; 82140; 82550; 82962; 83036; 84443; 84484; 85025; 85610; 85730; 93005; 93010; 94760; 96361; 96374; 96375; G0378; G0480; J1650; J1815; J2270; J3480; J7030

== ENCOUNTER 2018-04-14 00:29 | Emergency (ER) | payer SELFPAY ==
[2018-04-14] MEDS ORDERED: IBUPROFEN PO ONE (00:52)
[2018-04-14 01:18] LABS: Hemoglobin 13.3 gm/dl (11.8-15.2); Mean Corpuscular HGB Conc 33 % (32-34); Mean Corpuscular Volume 89 fl (84-94); Platelet Count 305 K/mm3 (140-440); Red Blood Count 4.48 M/mm3 (3.65-5.03); Red Cell Distribution Width 13.7 % (13.2-15.2)
[2018-04-14 01:26] LABS: INR 0.98 (0.87-1.13)
[2018-04-14 01:27] LABS: Partial Thromboplastin Time 23.5 Sec. (24.2-36.6)
[2018-04-14 01:31] LABS: BUN/Creatinine Ratio 17; Blood Urea Nitrogen 17 mg/dL (9-20); Calcium 9.4 mg/dL (8.4-10.2); Hemolysis Index 7
--- NOTE | 2018-04-14 01:44 | XRay Report ---
FINAL REPORT PROCEDURE: XR CHEST ROUTINE 2V TECHNIQUE: PA and lateral chest radiographs were obtained. CPT 51740 HISTORY: chewst pain COMPARISON: No prior studies are available for comparison. FINDINGS: Heart: Normal. Mediastinum/Vessels: Normal. Lungs/Pleural space: Normal. Bony thorax: No acute osseous abnormality. Other: Pacemaker leads are in proper position. IMPRESSION: There is no acute cardiopulmonary abnormality..
[2018-04-14] MEDS ORDERED: TYLENOL PO ONE (01:58)
[2018-04-14] MEDS ORDERED: HumuLIN R IV ONE (01:58)
--- NOTE | 2018-04-14 02:04 | Emergency Department Report ---
ED General Adult HPI - General Chief complaint: Urogenital-Male Stated complaint: URINE RETENTION Time Seen by Provider: 04/14/18 00:44 Source: patient, EMS (ems notes not available at time of chart dictation), RN notes reviewed, old records reviewed Mode of arrival: Ambulatory Limitations: No Limitations - History of Present Illness Initial comments: This is a 52-year-old gentleman, whom I have evaluated multiple times in the past. Patient has a history of narcotic seeking tendencies, chronic pain, medication noncompliance, neuropathy, cardiomyopathy, reportedly normalize ejection fraction, pacemaker, diabetes, cocaine use. Patient recently admitted to the medical service for encephalopathy, hypoglycemia, was seen by cardiology, who was found to have normal device function of pacemaker, one episode of tachycardia, no episodes of bradycardia arrhythmias, with a cardiology recommendation for "patient may discharged home from cardiology standpoint on home cardiac regimen. Recommend patient follow-up in our office with Dr. Chacko within one to 2 weeks of hospital discharge." These recommendations were made within the past week and a half. The patient was apparently discharged from the hospital recently AGAINST MEDICAL ADVICE as he had a discontinued Griggs catheter, and would not allow staff to replace a Griggs catheter. The patient presents to the ER today with 2 complaints. His first complaint is suprapubic, discomfort and inability to urinate. The symptoms are constant. They were relieved with placement of a Griggs catheter, with over 400 mL of clear yellow urine. History of complaint is chest wall pain. The chest wall pain is alternating right side and left side, not associated with vomiting, diaphoresis, no leg mohan n, no leg swelling, increased with palpation and decreased with rest. Chest wall pain has been present for a few days. Patient also complains incidentally of chronic abdominal pain, I have evaluated him in the past for this multiple times, and he's also had extensive workup at this hospital for similar complaint. -: Gradual Location: chest Severity scale (0 -10): 0 Consistency: other Improves with: other Worsens with: other Associated Symptoms: other - Related Data Home Medications Medication Instructions Recorded Confirmed Last Taken Insulin Aspart Prot/Aspart(Nf) 7 units SQ BID 12/06/17 01/20/18 Unknown [NovoLOG Mix 70/30 VIAL] Previous Rx's Medication Instructions Recorded Last Taken Type Ciprofloxacin HCl [Ciprofloxacin 500 mg PO Q12H #14 tab 01/30/18 Unknown Rx TAB] HYDROcodone/APAP 5-325 [Mina 1 - 2 each PO Q6HR PRN #14 tablet 01/30/18 Unknown Rx 5-325 mg TAB] Cyclobenzaprine [Flexeril 10 MG 10 mg PO TID PRN #30 tablet 02/07/18 Unknown Rx TAB] Menthol/Camphor [[place] 1 unit TP QID PRN 60 Days #60 02/07/18 Unknown Rx Ointment] oint...g. Naproxen [Naprosyn] 500 mg PO BID PRN #30 tablet 02/07/18 Unknown Rx Dicyclomine [Bentyl] 20 mg PO QID PRN #20 tablet 04/01/18 Unknown Rx Ondansetron [Zofran ODT TAB] 4 mg PO Q8HR PRN #20 tab.rapdis 04/01/18 Unknown Rx Promethazine [Phenergan TAB] 25 mg PO Q6HR PRN #20 tab 04/01/18 Unknown Rx Allergies Allergy/AdvReac Type Severity Reaction Status Date / Time No Known Allergies Allergy Verified 01/24/18 08:29 ED Review of Systems ROS: Stated complaint: URINE RETENTION Other details as noted in HPI Constitutional: denies: fever Eyes: denies: vision change ENT: denies: epistaxis Respiratory: denies: wheezing Cardiovascular: chest pain Genitourinary: other (inability to urinate) ED Past Medical Hx - Past Medical History Previous Medical History?: Yes Hx Hypertension: Yes Hx CVA: Yes Hx Heart Attack/AMI: Yes (Cardiomyopathy) Hx Congestive Heart Failure: Yes Hx Diabetes: Yes Hx Renal Disease: Yes Hx Asthma: No Hx COPD: Yes Hx HIV: No - Surgical History Past Surgical History?: Yes Hx Pacemaker: Yes Hx Internal Defibrillator: Yes Hx Appendectomy: Yes Additional Surgical History: HERNIA SURGERY, Pacemaker - Social History Smoking Status: Former Smoker Substance Use Type: Marijuana - Medications Home Medications: Home Medications Medication Instructions Recorded Confirmed Last Taken Type Insulin Aspart Prot/Aspart(Nf) 7 units SQ BID 12/06/17 01/20/18 Unknown History [NovoLOG Mix 70/30 VIAL] Ciprofloxacin HCl [Ciprofloxacin 500 mg PO Q12H #14 tab 01/30/18 Unknown Rx TAB] HYDROcodone/APAP 5-325 [Mina 1 - 2 each PO Q6HR PRN #14 tablet 01/30/18 Unknown Rx 5-325 mg TAB] Cyclobenzaprine [Flexeril 10 MG 10 mg PO TID PRN #30 tablet 02/07/18 Unknown Rx TAB] Menthol/Camphor [[place] 1 unit TP QID PRN 60 Days #60 02/07/18 Unknown Rx Ointment] oint...g. Naproxen [Naprosyn] 500 mg PO BID PRN #30 tablet 02/07/18 Unknown Rx Dicyclomine [Bentyl] 20 mg PO QID PRN #20 tablet 04/01/18 Unknown Rx Ondansetron [Zofran ODT TAB] 4 mg PO Q8HR PRN #20 tab.rapdis 04/01/18 Unknown Rx Promethazine [Phenergan TAB] 25 mg PO Q6HR PRN #20 tab 04/01/18 Unknown Rx ED Physical Exam - General Limitations: No Limitations General appearance: alert, anxious - Head Head exam: Present: atraumatic, normocephalic - Eye Eye exam: Present: normal appearance, EOMI. Absent: nystagmus - ENT ENT exam: Present: normal exam, normal orophraynx, mucous membranes moist, normal external ear exam - Neck Neck exam: Present: normal inspection, full ROM. Absent: tenderness, meningismu s - Respiratory Respiratory exam: Present: normal lung sounds bilaterally, chest wall tenderness (there is reproducible chest wall tenderness, with no redness, pus or streaking). Absent: respiratory distress - Cardiovascular Cardiovascular Exam: Present: normal rhythm, tachycardia, normal heart sounds. Absent: systolic murmur, diastolic murmur, rubs, gallop - GI/Abdominal GI/Abdominal exam: Present: soft, tenderness, other (patient has chronic lower abdominal tenderness, with no rebound, guarding or peritoneal signs, his abdominal examination today does not appear to be different than prior examinations of this provider has personally performed on this patient.). Absent: distended, guarding, rebound, rigid, pulsatile mass - Rectal Rectal exam: Present: deferred - exam: Present: normal inspection, other (chaperoned by nurse Earl Luis). Absent: testicular tenderness External exam: Present: normal external exam, other (there is no testicular tenderness. There is normal testicular lie bilaterally. There is normal cremasteric reflex bilaterally.) - Extremities Exam Extremities exam: Present: normal inspection, pedal edema, other (2+ pulses noted in the bilateral upper, lower extremities. Compartments soft. No long bony tenderness. The pelvis is stable.). Absent: calf tenderness - Back Exam Back exam: Present: normal inspection, full ROM. Absent: CVA tenderness (R), CVA tenderness (L), paraspinal tenderness, vertebral tenderness - Neurological Exam Neurological exam: Present: alert, oriented X3, other (Extraocular movements intact. Tongue midline. No facial droop. Facial sensation intact to light touch in the V1, V2, V3 distribution bilaterally. 5 and 5 strength in 4 extremities.. Sensation is intact to light touch in 4 extremities.) - Psychiatric Psychiatric exam: Present: anxious - Skin Skin exam: Present: warm, dry, intact, normal color. Absent: rash ED Course Vital Signs 04/14/18 04/14/18 04/14/18 00:37 00:51 01:00 Temperature 98.2 F Pulse Rate 109 H 101 H Respiratory 16 13 17 Rate Blood Pressure 126/78 98/65 110/64 Blood Pressure 126/78 [Left] O2 Sat by Pulse 98 99 98 Oximetry 04/14/18 02:00 Temperature Pulse Rate 90 Respiratory 10 L Rate Blood Pressure 125/77 Blood Pressure [Left] O2 Sat by Pulse 97 Oximetry - Reevaluation(s) Reevaluation #1: 04/14/18 02:04 Differential diagnosis, including but not limited to: Chronic abdominal pain, urinary retention, costochondritis, medication noncompliance Assessment and plan: 52-year-old gentleman with multiple recurrent presentations for similar, including urinary retention, chronic abdominal pain and chest wall pain. Tachycardia resolved, heart rate in the 90s, troponin negative 1, EKG appears to be unchanged from prior, chest wall pain present for days; as per the [employer]'s critical policy, myocardial infarction may be ruled out with one set of cardiac enzymes if chest symptoms p resent for greater than 8 hours. Patient was recently seen by the inpatient cardiology team, and has been instructed to follow up as an outpatient. X-ray the chest unremarkable, laboratory studies thus far unremarkable, with the exception of mild hyperglycemia, which will be treated with insulin. The patient will not be given narcotics given his past history, and will be treated with ibuprofen and acetaminophen. Screening urinalysis pending at this time. Reevaluation #2: 04/14/18 04:12 The patient is reevaluated multiple times by this provider, and is currently s leeping comfortably in his stretcher and in no acute distress. Tachycardia resolved, hyperglycemia improved, patient given food by nursing team, and he'll be discharged with instructions to follow up. ED Medical Decision Making - Lab Data Result diagrams: 04/14/18 01:01 04/14/18 01:01 Vital Signs 04/14/18 00:37 Temperature 98.2 F Pulse Rate 109 H Respiratory 16 Rate Blood Pressure 126/78 Blood Pressure 126/78 [Left] O2 Sat by Pulse 98 Oximetry Lab Results 04/14/18 04/14/18 04/14/18 Range/Units 01:01 01: 01:01 WBC 5.0 (4.5-11.0) K/mm3 RBC 4.48 (3.65-5.03) M/mm3 Hgb 13.3 (11.8-15.2) gm/dl Hct 40.0 (35.5-45.6) % MCV 89 (84-94) fl MCH 30 (28-32) pg MCHC 33 (32-34) % RDW 13.7 (13.2-15.2) % Plt Count 305 (140-440) K/mm3 PT 13.4 (12.2-14.9) Sec. INR 0.98 (0.87-1.13) APTT 23.5 L (24.2-36.6) Sec. Sodium 134 L (137-145) mmol/L Potassium 4.3 (3.6-5.0) mmol/L Chloride 93.6 L (98-107) mmol/L Carbon Dioxide 25 (22-30) mmol/L Anion Gap 20 mmol/L BUN 17 (9-20) mg/dL Creatinine 1.0 (0.8-1.5) mg/dL Estimated GFR > 60 ml/min BUN/Creatinine Ratio 17 % Glucose 402 H (75-100) mg/dL Calcium 9.4 (8.4-10.2) mg/dL Magnesium 2.20 (1.7-2.3) mg/dL Total Creatine Kinase 300 H (55-170) units/L Troponin T < 0.010 (0.00-0.029) ng/mL Salicylates (2.8-20.0) mg/dL Acetaminophen (10.0-30.0) ug/mL 04/14/18 04/14/18 Range/Units 01:01 01:01 WBC (4.5-11.0) K/mm3 RBC (3.65-5.03) M/mm3 Hgb (11.8-15.2) gm/dl Hct (35.5-45.6) % MCV (84-94) fl MCH (28-32) pg MCHC (32-34) % RDW (13.2-15.2) % Plt Count (140-440) K/mm3 PT (12.2-14.9) Sec. INR (0.87-1.13) APTT (24.2-36.6) Sec. Sodium (137-145) mmol/L Potassium (3.6-5.0) mmol/L Chloride (98-107) mmol/L Carbon Dioxide (22-30) mmol/L Anion Gap mmol/L BUN (9-20) mg/dL Creatinine (0.8-1.5) mg/dL Estimated GFR ml/min BUN/Creatinine Ratio % Glucose (75-100) mg/dL Calcium (8.4-10.2) mg/dL Magnesium (1.7-2.3) mg/dL Total Creatine Kinase (55-170) units/L Troponin T (0.00-0.029) ng/mL Salicylates < 0.3 L (2.8-20.0) mg/dL Acetaminophen < 5.0 L (10.0-30.0) ug/mL - EKG Data -: EKG Interpreted by Mn EKG shows normal: sinus rhythm Rate: normal - EKG Data When compared to previous EKG there are: no significant change 04/14/18 02:05 Sinus, 98 bpm, normal axis, QTC prolonged, poor R-wave progression, abnormal EKG , not consistent with ST elevation myocardial infarction, appears unchanged from prior EKG from 04/07/2018 - Radiology Data Radiology results: report reviewed, image reviewed X-ray the chest is negative for acute disease, chronic findings noted. Critical care attestation.: If time is entered above; I have spent that time in minutes in the direct care of this critically ill patient, excluding procedure time. ED Disposition Clinical Impression: Chest wall pain, Urinary retention Disposition: DC-01 TO HOME OR SELFCARE Is pt being admited?: No Does the pt Need Aspirin: No Condition: Stable Instructions: Chest Pain (ED) Additional Instructions: Continue outpatient medications. Follow up with your informatics spec within the next 7-10 days. Follow-up with your urologist within the next 7-10 days. Cultures were sent today, and results will be available in the next 3-5 days. Have a primary care doctor contact the medical records department to obtain culture results. Follow up with the primary care doctor within the next month for hyperglycemia, elevated blood sugar. Long-term complications of Griggs controlled diabetes, hyperglycemia includes stroke, disability, paralysis, loss of quality of life. Please return to the ER right away with new, worsening or different symptoms. Referrals: CAYLA MAHMOOD MD [Staff Physician] - 7-10 days CLARA STAHL MD [Staff Physician] - 7-10 days
[2018-04-14 02:29] LABS: Bilirubin,Urine NEG (Negative); Blood,Urine SM (Negative); Color,Urine Yellow (Yellow); Protein,Urine <15 mg/dL mg/dL (Negative); Urobilinogen,Urine < 2.0 mg/dL (<2.0)
[2018-04-14 02:49] VITALS: BP 125/77
== END 2018-04-14 06:28 | disposition home or self-care (01) ==
LOC: ED 00:29
DX: R33.9 Retention of urine, unspecified (principal); R07.89 Other chest pain; I11.0 Hypertensive heart disease with heart failure; I42.9 Cardiomyopathy, unspecified; E11.65 Type 2 diabetes mellitus with hyperglycemia; J44.9 Chronic obstructive pulmonary disease, unspecified; Z87.442 Personal history of urinary calculi; Z95.0 Presence of cardiac pacemaker; Z90.49 Acquired absence of other specified parts of digestive tract; Z87.891 Personal history of nicotine dependence; Z79.4 Long term (current) use of insulin
CPT/HCPCS: 36415; 51702; 71046; 80048; 81001; 82550; 82962; 83735; 84484; 85027; 85610; 85730; 87086; 93005; 93010; 96374; 99285; G0480; 80320; J1815

== ENCOUNTER 2018-04-14 20:18 | Inpatient (IN) | payer SELFPAY ==
[2018-04-14] MEDS ORDERED: D50W (25GM) Syringe IV ONE ×3 (20:50→23:01)
[2018-04-14] MEDS ORDERED: NARCAN 2 MG/2 ML IV ONE (20:52)
[2018-04-14] MEDS ORDERED: NACL 0.9% 500 ML 500 ML IV ONE (20:52)
--- NOTE | 2018-04-14 20:59 | Emergency Department Report ---
ED Altered Mental Status HPI - General Chief Complaint: Overdose Stated Complaint: UNRESPONSIVE Time Seen by Provider: 04/14/18 20:43 Source: EMS Mode of arrival: Stretcher Limitations: Altered Mental Status - History of Present Illness Initial Comments: Patient is 52 years old male with history of diabetes, hypertension, cardiomyopathy and narcotics abuse. Patient brought to the ER via EMS after patient was found unresponsive on the street. EMS stated patient initial blood sugar was 48. Patient given dextrose 50% and patient started responding but not back to normal. Patient was seen here in the emergency room this morning and discharged. He was seen for a Griggs catheter placement secondary to urinary retention. Patient was given insulin but no narcotics was given. Patient pupils is pin point. Patient is responding only to painful stimuli. Airway intact. Vital signs otherwise is stable. Repeat blood glucose in the emergency room is 44 patient given another extra dose of D50 and started on a D10 drip. MD Complaint: altered mental status, decreased responsiveness -: unknown Context: drug abuse, history of similar presen, diabetes - Related Data Home Medications Medication Instructions Recorded Confirmed Last Taken Insulin Aspart Prot/Aspart(Nf) 7 units SQ BID 12/06/17 01/20/18 Unknown [NovoLOG Mix 70/30 VIAL] Previous Rx's Medication Instructions Recorded Last Taken Type Ciprofloxacin HCl [Ciprofloxacin 500 mg PO Q12H #14 tab 01/30/18 Unknown Rx TAB] HYDROcodone/APAP 5-325 [[place] 1 - 2 each PO Q6HR PRN #14 tablet 01/30/18 Unknown Rx 5-325 mg TAB] Cyclobenzaprine [Flexeril 10 MG 10 mg PO TID PRN #30 tablet 02/07/18 Unknown Rx TAB] Menthol/Camphor [[place] 1 unit TP QID PRN 60 Days #60 02/07/18 Unknown Rx Ointment] oint...g. Naproxen [Naprosyn] 500 mg PO BID PRN #30 tablet 02/07/18 Unknown Rx Dicyclomine [Bentyl] 20 mg PO QID PRN #20 tablet 04/01/18 Unknown Rx Ondansetron [Zofran ODT TAB] 4 mg PO Q8HR PRN #20 tab.rapdis 04/01/18 Unknown Rx Promethazine [Phenergan TAB] 25 mg PO Q6HR PRN #20 tab 04/01/18 Unknown Rx Allergies Allergy/AdvReac Type Severity Reaction Status Date / Time No Known Allergies Allergy Verified 01/24/18 08:29 ED Review of Systems ROS: Stated complaint: UNRESPONSIVE Other details as noted in HPI Comment: Unobtainable due to pts medical conditions ED Past Medical Hx - Past Medical History Previous Medical History?: Yes Hx Hypertension: Yes Hx CVA: Yes Hx Heart Attack/AMI: Yes (Cardiomyopathy) Hx Congestive Heart Failure: Yes Hx Diabetes: Yes Hx Renal Disease: Yes Hx Asthma: No Hx COPD: Yes Hx HIV: No Additional medical history: BPH - indwelling catherter - Surgical History Hx Pacemaker: Yes Hx Internal Defibrillator: Yes Hx Appendectomy: Yes Additional Surgical History: HERNIA SURGERY, Pacemaker - Social History Smoking Status: Unknown if ever smoked - Medications Home Medications: Home Medications Medication Instructions Recorded Confirmed Last Taken Type Insulin Aspart Prot/Aspart(Nf) 7 units SQ BID 12/06/17 01/20/18 Unknown History [NovoLOG Mix 70/30 VIAL] Ciprofloxacin HCl [Ciprofloxacin 500 mg PO Q12H #14 tab 01/30/18 Unknown Rx TAB] HYDROcodone/APAP 5-325 [[place] 1 - 2 each PO Q6HR PRN #14 tablet 01/30/18 Unknown Rx 5-325 mg TAB] Cyclobenzaprine [Flexeril 10 MG 10 mg PO TID PRN #30 tablet 02/07/18 Unknown Rx TAB] Menthol/Camphor [[place] 1 unit TP QID PRN 60 Days #60 02/07/18 Unknown Rx Ointment] oint...g. Naproxen [Naprosyn] 500 mg PO BID PRN #30 tablet 02/07/18 Unknown Rx Dicyclomine [Bentyl] 20 mg PO QID PRN #20 tablet 04/01/18 Unknown Rx Ondansetron [Zofran ODT TAB] 4 mg PO Q8HR PRN #20 tab.rapdis 04/01/18 Unknown Rx Promethazine [Phenergan TAB] 25 mg PO Q6HR PRN #20 tab 04/01/18 Unknown Rx ED Physical Exam - General Limitations: Altered Mental Status General appearance: obtunded - Head Head exam: Present: atraumatic, normocephalic, normal inspection - Eye Eye exam: Present: other (pinpoint pupils) - ENT ENT exam: Present: normal exam, normal orophraynx, mucous membranes moist - Neck Neck exam: Present: normal inspection, full ROM. Absent: tenderness, meningismus - Respiratory Respiratory exam: Present: normal lung sounds bilaterally - Cardiovascular Cardiovascular Exam: Present: regular rate, normal rhythm, normal heart sounds - GI/Abdominal GI/Abdominal exam: Present: soft, normal bowel sounds. Absent: distended, tenderness, guarding, rebound, rigid, organomegaly, mass, bruit, pulsatile mass, hernia - Extremities Exam Extremities exam: Present: normal inspection, full ROM, normal capillary refill - Back Exam Back exam: Present: normal inspection, full ROM. Absent: tenderness, CVA tenderness (R), CVA tenderness (L), muscle spasm, paraspinal tenderness, vertebral tenderness, rash noted - Neurological Exam Neurological exam: Present: altered - Skin Skin exam: Present: warm, intact, normal color ED Course Vital Signs 04/14/18 04/14/18 04/14/18 20:18 20:30 20:43 Temperature 97.7 F Pulse Rate 101 H 96 H Respiratory 22 20 Rate Blood Pressure 187/97 143/91 O2 Sat by Pulse 89 98 97 Oximetry 04/14/18 04/14/18 04/14/18 20:45 21:00 21:15 Temperature Pulse Rate 89 83 81 Respiratory 21 17 16 Rate Blood Pressure 128/69 114/57 105/60 O2 Sat by Pulse 95 95 99 Oximetry 04/14/18 04/14/18 04/14/18 21:30 21:46 22:00 Temperature Pulse Rate 92 H 84 Respiratory 16 25 H Rate Blood Pressure 128/69 147/68 150/83 O2 Sat by Pulse 100 100 100 Oximetry 04/14/18 04/14/18 04/14/18 22:32 22:46 23:00 Temperature Pulse Rate 81 74 Respiratory 19 16 Rate Blood Pressure 150/83 150/83 120/74 O2 Sat by Pulse 100 100 Oximetry 04/14/18 04/14/18 04/14/18 23:15 23:30 23:45 Temperature Pulse Rate 76 78 81 Respiratory 14 15 18 Rate Blood Pressure 123/79 116/73 126/81 O2 Sat by Pulse 100 100 Oximetry 04/14/18 23:48 Temperature Pulse Rate Respiratory 16 Rate Blood Pressure O2 Sat by Pulse 100 Oximetry - Lab Data Result diagrams: 04/14/18 21:33 04/14/18 21:33 Lab Results 04/14/18 04/14/18 04/14/18 Range/Units 20:54 21:03 21:03 WBC (4.5-11.0) K/mm3 RBC (3.65-5.03) M/mm3 Hgb (11.8-15.2) gm/dl Hct (35.5-45.6) % MCV (84-94) fl MCH (28-32) pg MCHC (32-34) % RDW (13.2-15.2) % Plt Count (140-440) K/mm3 Lymph % (Auto) (13.4-35.0) % [place] % (Auto) (0.0-7.3) % Eos % (Auto) (0.0-4.3) % Baso % (Auto) (0.0-1.8) % Lymph # (1.2-5.4) K/mm3 [place] # (0.0-0.8) K/mm3 Eos # (0.0-0.4) K/mm3 Baso # (0.0-0.1) K/mm3 Seg Neutrophils % (40.0-70.0) % Seg Neutrophils # (1.8-7.7) K/mm3 PT (12.2-14.9) Sec. INR (0.87-1.13) APTT (24.2-36.6) Sec. Sodium (137-145) mmol/L Potassium (3.6-5.0) mmol/L Chloride (98-107) mmol/L Carbon Dioxide (22-30) mmol/L Anion Gap mmol/L BUN (9-20) mg/dL Creatinine (0.8-1.5) mg/dL Estimated GFR ml/min BUN/Creatinine Ratio % Glucose (75-100) mg/dL POC Glucose 44 L (70-105) Lactic Acid (0.7-2.0) mmol/L Calcium (8.4-10.2) mg/dL Total Bilirubin (0.1-1.2) mg/dL Direct Bilirubin (0-0.2) mg/dL Indirect Bilirubin mg/dL AST (5-40) units/L ALT (7-56) units/L Alkaline Phosphatase (35-129) units/L Ammonia (25-60) umol/L Troponin T (0.00-0.029) ng/mL Total Protein (6.3-8.2) g/dL Albumin (3.9-5) g/dL Albumin/Globulin Ratio % Urine Color Straw (Yellow) Urine Turbidity Clear (Clear) Urine pH 6.0 (5.0-7.0) Ur Specific [place] 1.007 (1.003-1.030) Urine Protein <15 mg/dl (Negative) mg/dL Urine Glucose (UA) >=500 (Negative) mg/dL Urine Ketones Neg (Negative) mg/dL Urine Blood Mod (Negative) Urine Nitrite Neg (Negative) Urine Bilirubin Neg (Negative) Urine Urobilinogen < 2.0 (<2.0) mg/dL Ur Leukocyte Esterase Neg (Negative) Urine WBC (Auto) 2.0 (0.0-6.0) /HPF Urine RBC (Auto) 2.0 (0.0-6.0) /HPF Urine Mucus Few /HPF Urine Opiates Screen Presumptive negative Urine Methadone Screen Presumptive negative Ur Barbiturates Screen Presumptive negative Ur Phencyclidine Scrn Presumptive negative Ur Amphetamines Screen Presumptive negative U Benzodiazepines Scrn Presumptive negative Urine Cocaine Screen Presumptive positive U Marijuana (THC) Screen Presumptive negative Drugs of Abuse Note Disclamer Plasma/Serum Alcohol (0-0.07) % 04/14/18 04/14/18 04/14/18 Range/Units 21:33 21:33 21:33 WBC 8.3 (4.5-11.0) K/mm3 RBC 4.52 (3.65-5.03) M/mm3 Hgb 13.7 (11.8-15.2) gm/dl Hct 39.8 (35.5-45.6) % MCV 88 (84-94) fl MCH 30 (28-32) pg MCHC 34 (32-34) % RDW 13.8 (13.2-15.2) % Plt Count 315 (140-440) K/mm3 Lymph % (Auto) 16.8 (13.4-35.0) % [place] % (Auto) 10.0 H (0.0-7.3) % Eos % (Auto) 0.4 (0.0-4.3) % Baso % (Auto) 0.4 (0.0-1.8) % Lymph # 1.4 (1.2-5.4) K/mm3 [place] # 0.8 (0.0-0.8) K/mm3 Eos # 0.0 (0.0-0.4) K/mm3 Baso # 0.0 (0.0-0.1) K/mm3 Seg Neutrophils % 72.4 H (40.0-70.0) % Seg Neutrophils # 6.0 (1.8-7.7) K/mm3 PT 10.3 L (12.2-14.9) Sec. INR 0.69 L (0.87-1.13) APTT 20.8 L (24.2-36.6) Sec. Sodium (137-145) mmol/L Potassium (3.6-5.0) mmol/L Chloride (98-107) mmol/L Carbon Dioxide (22-30) mmol/L Anion Gap mmol/L BUN (9-20) mg/dL Creatinine (0.8-1.5) mg/dL Estimated GFR ml/min BUN/Creatinine Ratio % Glucose (75-100) mg/dL POC Glucose (70-105) Lactic Acid 4.10 H* (0.7-2.0) mmol/L Calcium (8.4-10.2) mg/dL Total Bilirubin (0.1-1.2) mg/dL Direct Bilirubin (0-0.2) mg/dL Indirect Bilirubin mg/dL AST (5-40) units/L ALT (7-56) units/L Alkaline Phosphatase (35-129) units/L Ammonia (25-60) umol/L Troponin T (0.00-0.029) ng/mL Total Protein (6.3-8.2) g/dL Albumin (3.9-5) g/dL Albumin/Globulin Ratio % Urine Color (Yellow) Urine Turbidity (Clear) Urine pH (5.0-7.0) Ur Specific [place] (1.003-1.030) Urine Protein (Negative) mg/dL Urine Glucose (UA) (Negative) mg/dL Urine Ketones (Negative) mg/dL Urine Blood (Negative) Urine Nitrite (Negative) Urine Bilirubin (Negative) Urine Urobilinogen (<2.0) mg/dL Ur Leukocyte Esterase (Negative) Urine WBC (Auto) (0.0-6.0) /HPF Urine RBC (Auto) (0.0-6.0) /HPF Urine Mucus /HPF Urine Opiates Screen Urine Methadone Screen Ur Barbiturates Screen Ur Phencyclidine Scrn Ur Amphetamines Screen U Benzodiazepines Scrn Urine Cocaine Screen U Marijuana (THC) Screen Drugs of Abuse Note Plasma/Serum Alcohol (0-0.07) % 04/14/18 04/14/18 04/14/18 Range/Units 21:33 21:33 21:33 WBC (4.5-11.0) K/mm3 RBC (3.65-5.03) M/mm3 Hgb (11.8-15.2) gm/dl Hct (35.5-45.6) % MCV (84-94) fl MCH (28-32) pg MCHC (32-34) % RDW (13.2-15.2) % Plt Count (140-440) K/mm3 Lymph % (Auto) (13.4-35.0) % [place] % (Auto) (0.0-7.3) % Eos % (Auto) (0.0-4.3) % Baso % (Auto) (0.0-1.8) % Lymph # (1.2-5.4) K/mm3 [place] # (0.0-0.8) K/mm3 Eos # (0.0-0.4) K/mm3 Baso # (0.0-0.1) K/mm3 Seg Neutrophils % (40.0-70.0) % Seg Neutrophils # (1.8-7.7) K/mm3 PT (12.2-14.9) Sec. INR (0.87-1.13) APTT (24.2-36.6) Sec. Sodium 139 (137-145) mmol/L Potassium 3.4 L D (3.6-5.0) mmol/L Chloride 94.9 L (98-107) mmol/L Carbon Dioxide 26 (22-30) mmol/L Anion Gap 22 mmol/L BUN 20 (9-20) mg/dL Creatinine 0.8 (0.8-1.5) mg/dL Estimated GFR > 60 ml/min BUN/Creatinine Ratio 25 % Glucose 24 L* (75-100) mg/dL POC Glucose (70-105) Lactic Acid (0.7-2.0) mmol/L Calcium 9.3 (8.4-10.2) mg/dL Total Bilirubin 0.40 (0.1-1.2) mg/dL Direct Bilirubin < 0.2 (0-0.2) mg/dL Indirect Bilirubin 0.2 mg/dL AST 18 (5-40) units/L ALT 21 (7-56) units/L Alkaline Phosphatase 69 (35-129) units/L Ammonia 79.0 H (25-60) umol/L Troponin T < 0.010 (0.00-0.029) ng/mL Total Protein 7.4 (6.3-8.2) g/dL Albumin 4.5 (3.9-5) g/dL Albumin/Globulin Ratio 1.6 % Urine Color (Yellow) Urine Turbidity (Clear) Urine pH (5.0-7.0) Ur Specific [place] (1.003-1.030) Urine Protein (Negative) mg/dL Urine Glucose (UA) (Negative) mg/dL Urine Ketones (Negative) mg/dL Urine Blood (Negative) Urine Nitrite (Negative) Urine Bilirubin (Negative) Urine Urobilinogen (<2.0) mg/dL Ur Leukocyte Esterase (Negative) Urine WBC (Auto) (0.0-6.0) /HPF Urine RBC (Auto) (0.0-6.0) /HPF Urine Mucus /HPF Urine Opiates Screen Urine Methadone Screen Ur Barbiturates Screen Ur Phencyclidine Scrn Ur Amphetamines Screen U Benzodiazepines Scrn Urine Cocaine Screen U Marijuana (THC) Screen Drugs of Abuse Note Plasma/Serum Alcohol < 0.01 (0-0.07) % 04/14/18 04/14/18 Range/Units 22:44 23:50 WBC (4.5-11.0) K/mm3 RBC (3.65-5.03) M/mm3 Hgb (11.8-15.2) gm/dl Hct (35.5-45.6) % MCV (84-94) fl MCH (28-32) pg MCHC (32-34) % RDW (13.2-15.2) % Plt Count (140-440) K/mm3 Lymph % (Auto) (13.4-35.0) % [place] % (Auto) (0.0-7.3) % Eos % (Auto) (0.0-4.3) % Baso % (Auto) (0.0-1.8) % Lymph # (1.2-5.4) K/mm3 [place] # (0.0-0.8) K/mm3 Eos # (0.0-0.4) K/mm3 Baso # (0.0-0.1) K/mm3 Seg Neutrophils % (40.0-70.0) % Seg Neutrophils # (1.8-7.7) K/mm3 PT (12.2-14.9) Sec. INR (0.87-1.13) APTT (24.2-36.6) Sec. Sodium (137-145) mmol/L Potassium (3.6-5.0) mmol/L Chloride (98-107) mmol/L Carbon Dioxide (22-30) mmol/L Anion Gap mmol/L BUN (9-20) mg/dL Creatinine (0.8-1.5) mg/dL Estimated GFR ml/min BUN/Creatinine Ratio % Glucose (75-100) mg/dL POC Glucose < 40 L 43 L (70-105) Lactic Acid (0.7-2.0) mmol/L Calcium (8.4-10.2) mg/dL Total Bilirubin (0.1-1.2) mg/dL Direct Bilirubin (0-0.2) mg/dL Indirect Bilirubin mg/dL AST (5-40) units/L ALT (7-56) units/L Alkaline Phosphatase (35-129) units/L Ammonia (25-60) umol/L Troponin T (0.00-0.029) ng/mL Total Protein (6.3-8.2) g/dL Albumin (3.9-5) g/dL Albumin/Globulin Ratio % Urine Color (Yellow) Urine Turbidity (Clear) Urine pH (5.0-7.0) Ur Specific [place] (1.003-1.030) Urine Protein (Negative) mg/dL Urine Glucose (UA) (Negative) mg/dL Urine Ketones (Negative) mg/dL Urine Blood (Negative) Urine Nitrite (Negative) Urine Bilirubin (Negative) Urine Urobilinogen (<2.0) mg/dL Ur Leukocyte Esterase (Negative) Urine WBC (Auto) (0.0-6.0) /HPF Urine RBC (Auto) (0.0-6.0) /HPF Urine Mucus /HPF Urine Opiates Screen Urine Methadone Screen Ur Barbiturates Screen Ur Phencyclidine Scrn Ur Amphetamines Screen U Benzodiazepines Scrn Urine Cocaine Screen U Marijuana (THC) Screen Drugs of Abuse Note Plasma/Serum Alcohol (0-0.07) % - EKG Data -: EKG Interpreted by Ne EKG shows normal: sinus rhythm Rate: normal Interpretation: no acute changes - Radiology Data Radiology results: report reviewed Referring Physician: TOSHA VERDUZCO Patient Name: RACHELLE SANTOS Date of : 1965 Sex: Male Report Date: 2018-04-14 Report Status: Finalized Findings [facility] [address] [place] [address] Cat Scan Report Signed Patient: RACHELLE SANTOS MR#: [id number] : 1965 Acct:[id number] Age/Sex: 52 / M ADM Date: 04/14/18 Loc: ED Attending Dr: Ordering Physician: TOSHA VERDUZCO Date of Service: 04/14/18 Procedure(s): CT head/brain wo con Accession Number(s): [id number] cc: TOSHA VERDUZCO FINAL REPORT EXAM: CT HEAD/BRAIN WO CON HISTORY: Altered Mental Status TECHNIQUE: CT head without contrast PRIORS: None. FINDINGS: No acute intra-axial or extra-axial hemorrhage is identified. There is no evidence of midline shift or mass effect. The ventricles and sulci are within normal limits. Perez- white matter differentiation is intact. No acute parenchymal abnormalities seen. Bony calvarium is grossly intact. Visualized portions of the mastoids and paranasal sinuses are unremarkable. IMPRESSION: Negative CT head Transcribed By: JAYLEEN Dictated By: ASH LIZAMA MD Electronically Authenticated By: ASH LIZAMA MD Signed Date/Time: 04/14/182328 DD/ 31 TD/TT: 04/14/182331 - Medical Decision Making Patient is 52 years old male with history of diabetes, hypertension, cardiomyopathy and narcotics abuse. Patient brought to the ER via EMS after patient was found unresponsive on the street. EMS stated patient initial blood sugar was 48. Patient given dextrose 50% and patient started responding but not back to normal. Patient was seen here in the emergency room this morning and discharged. He was seen for a Griggs catheter placement secondary to urinary distention. Patient was given insulin but nonnarcotics was given. Patient pupils is pin point. Patient is responding only to painful stimuli. Airway intact. Vital signs otherwise is stable. Repeat blood glucose in the emergency room is 44 patient given another extra dose of D50 and started on a D10 drip. Impression blood sugar dropped to 35 after being on D10. Another dextrose 50 was given. Patient drug screen is positive for cocaine. Patient Ammonia is 79. I discussed the patient is Dr. Maria Luisa thurman, she agreed to admit the patient to medical service for further management and observation. Critical Care Time: Yes Critical care time in (mins) excluding proc time.: 30 Critical care attestation.: If time is entered above; I have spent that time in minutes in the direct care of this critically ill patient, excluding procedure time. ED Disposition Clinical Impression: Altered mental status, Hypoglycemia, Cocaine abuse Disposition: OP ADMIT IP TO THIS HOSP Is pt being admited?: Yes Condition: Stable Referrals: PRIMARY CARE, [Primary Care Provider] - 3-5 Days
[2018-04-14] MEDS ORDERED: ZOFRAN IV ONE (21:03)
[2018-04-14] MEDS: D10W 1,000 ML IV SCH (21:25)
[2018-04-14 22:00] LABS: Basophils % (Auto) 0.4 % (0.0-1.8); Eosinophils % (Auto) 0.4 % (0.0-4.3); Hematocrit 39.8 % (35.5-45.6); Hemoglobin 13.7 gm/dl (11.8-15.2); Lymphocytes # (Auto) 1.4 K/mm3 (1.2-5.4); Lymphocytes % (Auto) 16.8 % (13.4-35.0); Mean Corpuscular HGB Conc 34 % (32-34); Mean Corpuscular Volume 88 fl (84-94); Monocytes # (Auto) 0.8 K/mm3 (0.0-0.8); Red Blood Count 4.52 M/mm3 (3.65-5.03); Red Cell Distribution Width 13.8 % (13.2-15.2)
[2018-04-14 22:02] LABS: Platelet Count 315 K/mm3 (140-440)
[2018-04-14 22:06] LABS: Bilirubin,Urine NEG (Negative); Blood,Urine MOD (Negative); Color,Urine Straw (Yellow); Mucus,Urine FEW /HPF; Protein,Urine <15 mg/dL mg/dL (Negative); Urobilinogen,Urine < 2.0 mg/dL (<2.0)
[2018-04-14 22:10] LABS: INR 0.69 (0.87-1.13)
[2018-04-14 22:11] LABS: Partial Thromboplastin Time 20.8 Sec. (24.2-36.6)
[2018-04-14 22:11] LABS: Amphetamine Screen,Urine PRESUMPTIVE NEGATIVE; Benzodiazepines Screen,Urine PRESUMPTIVE NEGATIVE; Cannabinoid Screen,Urine PRESUMPTIVE NEGATIVE; Methadone Screen,Urine PRESUMPTIVE NEGATIVE; Opiate Screen,Urine PRESUMPTIVE NEGATIVE
[2018-04-14 22:17] LABS: Alanine Aminotransferase 21 units/L (7-56); Albumin 4.5 g/dL (3.9-5); BUN/Creatinine Ratio 25; Blood Urea Nitrogen 20 mg/dL (9-20); Calcium 9.3 mg/dL (8.4-10.2); Hemolysis Index 29
[2018-04-14 22:25] LABS: Cocaine Screen,Urine PRESUMPTIVE POSITIVE
[2018-04-14 22:29] LABS: Bilirubin,Direct < 0.2 mg/dL (0-0.2)
[2018-04-14] MEDS ORDERED: NACL 0.9% 1000 ML 1,000 ML ONE (22:59)
[2018-04-14] MEDS ORDERED: NACL 0.9% 1000 ML 1,000 ML IV ONE (23:02)
--- NOTE | 2018-04-14 23:29 | Cat Scan Report ---
FINAL REPORT EXAM: CT HEAD/BRAIN WO CON HISTORY: Altered Mental Status TECHNIQUE: CT head without contrast PRIORS: None. FINDINGS: No acute intra-axial or extra-axial hemorrhage is identified. There is no evidence of midline shift or mass effect. The ventricles and sulci are within normal limits. Perez-white matter differentiation is intact. No acute parenchymal abnormalities seen. Bony calvarium is grossly intact. Visualized portions of the mastoids and paranasal sinuses are unre markable. IMPRESSION: Negative CT head
--- NOTE | 2018-04-14 23:55 | History and Physical Report ---
History of Present Illness Date of examination: 04/14/18 History of present illness: Old chart reviewed. 52-year-old man with a history of hypertension, diabetes, CHF, coronary artery disease, COPD was found unresponsive by EMS on the street. His blood sugar in the field was 48, he was given D50. In the emergency room he continues to be hypoglycemic, he was started on a D10 drip, his low blood sugars have been supplemented with D50. Patient is unable to give a history, review of system is unobtainable. He was seen in the emergency room earlier this morning complaining of difficulty urinating and chest pain PAST MEDICAL HISTORY: hypertension, diabetes, CHF, coronary artery disease, COPD PAST SURGICAL HISTORY: AICD, pacemaker for hernia repair , appendectomy SOCIAL HISTORY: Urine significant for cocaine FAMILY HISTORY: Hypertension Medications and Allergies Allergies Allergy/AdvReac Type Severity Reaction Status Date / Time No Known Allergies Allergy Verified 01/24/18 08:29 Home Medications Medication Instructions Recorded Confirmed Last Taken Type Insulin Aspart Prot/Aspart(Nf) 7 units SQ BID 12/06/17 01/20/18 Unknown History [NovoLOG Mix 70/30 VIAL] Ciprofloxacin HCl [Ciprofloxacin 500 mg PO Q12H #14 tab 01/30/18 Unknown Rx TAB] HYDROcodone/APAP 5-325 [[place] 1 - 2 each PO Q6HR PRN #14 tablet 01/30/18 Unknown Rx 5-325 mg TAB] Cyclobenzaprine [Flexeril 10 MG 10 mg PO TID PRN #30 tablet 02/07/18 Unknown Rx TAB] Menthol/Camphor [[place] 1 unit TP QID PRN 60 Days #60 02/07/18 Unknown Rx Ointment] oint...g. Naproxen [Naprosyn] 500 mg PO BID PRN #30 tablet 02/07/18 Unknown Rx Dicyclomine [Bentyl] 20 mg PO QID PRN #20 tablet 04/01/18 Unknown Rx Ondansetron [Zofran ODT TAB] 4 mg PO Q8HR PRN #20 tab.rapdis 04/01/18 Unknown Rx Promethazine [Phenergan TAB] 25 mg PO Q6HR PRN #20 tab 04/01/18 Unknown Rx Active Meds: Active Medications Dextrose (D10w) 1,000 mls @ 150 mls/hr IV DIRECT ROSALINDA Last Admin: 04/14/18 21:25 Dose: 150 mls/hr Documented by: Sodium Chloride (Nacl 0.9% 1000 Ml) 1,000 mls @ 999 mls/hr IV BOLUS ONE Stop: 04/15/18 00:02 Last Admin: 04/14/18 23:03 Dose: 999 mls/hr Documented by: Exam - Physical Exam Narrative exam: General Apperance: The patient lying in bed, breathing comfortable HEENT: Normocephalic, atraumatic. Pupils equally round and reactive to light, unable to do EOM, no sclericterus or JVD or thyromegaly or nodule. , no carotid bruit, mucous membranes moist, no exudate or erythema Heart: S1-S2, regular is rhythm Lungs: Clear to auscultation bilaterally, breathing comfortable Abdomen: Positive bowel sounds, soft, nontender, nondistended, no organomegaly Extremities: No edema cyanosis clubbing Skin: no rash, nodule, warm and dry Neuro: Difficult to assess - Constitutional Vitals: Temp Pulse Resp BP Pulse Ox 97.7 F 81 16 126/81 100 04/14/18 20:43 04/14/18 23:45 04/14/18 23:48 04/14/18 23:45 04/14/18 23:48 Results - Labs CBC & Chem 7: 04/15/18 02:34 04/15/18 02:34 Labs: Abnormal lab results 04/14/18 04/14/18 04/14/18 Range/Units 20:54 21:33 21:33 [place] % (Auto) 10.0 H (0.0-7.3) % Seg Neutrophils % 72.4 H (40.0-70.0) % PT (12.2-14.9) Sec. INR (0.87-1.13) APTT (24.2-36.6) Sec. Potassium (3.6-5.0) mmol/L Chloride (98-107) mmol/L Glucose (75-100) mg/dL POC Glucose 44 L (70-105) Lactic Acid 4.10 H* (0.7-2.0) mmol/L Ammonia (25-60) umol/L 04/14/18 04/14/18 04/14/18 Range/Units 21:33 21:33 21:33 [place] % (Auto) (0.0-7.3) % Seg Neutrophils % (40.0-70.0) % PT 10.3 L (12.2-14.9) Sec. INR 0.69 L (0.87-1.13) APTT 20.8 L (24.2-36.6) Sec. Potassium 3.4 L D (3.6-5.0) mmol/L Chloride 94.9 L (98-107) mmol/L Glucose 24 L* (75-100) mg/dL POC Glucose (70-105) Lactic Acid (0.7-2.0) mmol/L Ammonia 79.0 H (25-60) umol/L 04/14/18 04/14/18 Range/Units 22:44 23:50 [place] % (Auto) (0.0-7.3) % Seg Neutrophils % (40.0-70.0) % PT (12.2-14.9) Sec. INR (0.87-1.13) APTT (24.2-36.6) Sec. Potassium (3.6-5.0) mmol/L Chloride (98-107) mmol/L Glucose (75-100) mg/dL POC Glucose < 40 L 43 L (70-105) Lactic Acid (0.7-2.0) mmol/L Ammonia (25-60) umol/L - Imaging and Cardiology CT Scan - head: report reviewed Assessment and Plan Assessment Hypoglycemia diabetes CHF, stable Hypertension History of CVA Plan Admit to medicine Continue IV fluid, D50 Check cardiac enzymes, chest x-ray, urinalysis DVT prophylaxis
[2018-04-15] MEDS ORDERED: D50W (25GM) Syringe IV ONE ×4 (00:17→03:00)
[2018-04-15] MEDS ORDERED: TYLENOL PO PRN (00:39)
[2018-04-15] MEDS ORDERED: ZOFRAN IV PRN (00:39)
[2018-04-15] MEDS ORDERED: SODIUM CHLORIDE FLUSH SYRINGE 10 ML IV PRN (00:39)
[2018-04-15 02:52] LABS: Basophils % (Auto) 0.5 % (0.0-1.8); Hemoglobin 14.6 gm/dl (11.8-15.2); Lymphocytes # (Auto) 0.7 K/mm3 (1.2-5.4); Lymphocytes % (Auto) 12.5 % (13.4-35.0); Mean Corpuscular HGB Conc 33 % (32-34); Mean Corpuscular Volume 89 fl (84-94); Monocytes # (Auto) 0.4 K/mm3 (0.0-0.8); Monocytes % (Auto) 6.4 % (0.0-7.3); Platelet Count 332 K/mm3 (140-440); Red Blood Count 4.97 M/mm3 (3.65-5.03); Red Cell Distribution Width 13.6 % (13.2-15.2)
[2018-04-15 03:05] LABS: BUN/Creatinine Ratio 27; Blood Urea Nitrogen 19 mg/dL (9-20); Hemolysis Index 8
[2018-04-15 06:28] LABS: Creatine Kinase MB 4.1 ng/mL (0.0-4.0)
[2018-04-15] MEDS: D10W 1,000 ML IV SCH (06:45)
[2018-04-15 06:55] LABS: Creatine Kinase MB 3.5 ng/mL (0.0-4.0)
[2018-04-15] MEDS ORDERED: TYLENOL ONE (07:04)
[2018-04-15] MEDS ORDERED: LOVENOX SUB-Q SCH (10:00)
[2018-04-15] MEDS ORDERED: LOVENOX SUB-Q ONE (12:24)
[2018-04-15] MEDS: LOVENOX SUB-Q SCH (12:25)
--- NOTE | 2018-04-15 14:47 | Progress Note ---
Assessment and Plan Assessment and plan: 52-year-old man with a history of hypertension, diabetes, CHF, coronary artery disease, COPD was found unresponsive by EMS on the street. His blood sugar in the field was 48, he was given D50. In the emergency room he continues to be hypoglycemic, he was started on a D10 drip, his low blood sugars have been supplemented with D50. Patient is unable to give a history, review of system is unobtainable. He was seen in the emergency room earlier this morning complaining of difficulty urinating and chest pain PAST MEDICAL HISTORY: hypertension, diabetes, CHF, coronary artery disease, COPD Hypoglycemia cocaine abuse diabetes CHF, stable Hypertension History of CVA Urinary retention, dribbling when urinating Bilateral flank pain Plan - Patient improved on dextrose, Counseled about cocaine cessation Optimize medications for chronic conditions Keep Griggs in place and not remove, consult urology per patient request -Obtain renal ultrasound, UA was negative DVT prophylaxis chemical History Interval history: The patient is complaining of bilateral flank pain He denies fevers, denies chills Admits to pain related to Griggs catheter, but the nurse said he was pulling on it early today No vomiting No chest pain No shortness of breath Hospitalist Physical - Physical exam Narrative exam: General.: Appears well, no distress, nontoxic HEENT: Moist mucous membranes, extraocular muscles intact, no lymphadenopathy Neck: supple Cardiac: S1-S2 heard Lungs: clear to auscultation bilaterally Abdomen: soft , nontender, nondistended, bowel sounds positive Extremities: no edema clubbing or cyanosis Skin: no rash or lesions Neurologic: no gross focal deficits Psych: calm, and cooperative - Constitutional Vitals: Temp Pulse Resp BP Pulse Ox 97.7 F 90 12 124/76 100 04/14/18 20:43 04/15/18 12:30 04/15/18 12:30 04/15/18 12:30 04/15/18 12:30 Results - Labs CBC & Chem 7: 04/15/18 02:34 04/16/18 13:46 Labs: Laboratory Last Values WBC 5.9 K/mm3 (4.5-11.0) 04/15/18 02:34 RBC 4.97 M/mm3 (3.65-5.03) 04/15/18 02:34 Hgb 14.6 gm/dl (11.8-15.2) 04/15/18 02:34 Hct 44.0 % (35.5-45.6) 04/15/18 02:34 MCV 89 fl (84-94) 04/15/18 02:34 MCH 29 pg (28-32) 04/15/18 02:34 MCHC 33 % (32-34) 04/15/18 02:34 RDW 13.6 % (13.2-15.2) 04/15/18 02:34 Plt Count 332 K/mm3 (140-440) 04/15/18 02:34 Lymph % (Auto) 12.5 % (13.4-35.0) L 04/15/18 02:34 [place] % (Auto) 6.4 % (0.0-7.3) 04/15/18 02:34 Eos % (Auto) 0.0 % (0.0-4.3) 04/15/18 02:34 Baso % (Auto) 0.5 % (0.0-1.8) 04/15/18 02:34 Lymph # 0.7 K/mm3 (1.2-5.4) L 04/15/18 02:34 [place] # 0.4 K/mm3 (0.0-0.8) 04/15/18 02:34 Eos # 0.0 K/mm3 (0.0-0.4) 04/15/18 02:34 Baso # 0.0 K/mm3 (0.0-0.1) 04/15/18 02:34 Seg Neutrophils % 80.6 % (40.0-70.0) H 04/15/18 02:34 Seg Neutrophils # 4.8 K/mm3 (1.8-7.7) 04/15/18 02:34 PT 10.3 Sec. (12.2-14.9) L 04/14/18 21:33 INR 0.69 (0.87-1.13) L 04/14/18 21:33 APTT 20.8 Sec. (24.2-36.6) L 04/14/18 21:33 Sodium 139 mmol/L (137-145) 04/15/18 02:34 Potassium 3.5 mmol/L (3.6-5.0) L 04/15/18 02:34 Chloride 96.9 mmol/L (98-107) L 04/15/18 02:34 Carbon Dioxide 29 mmol/L (22-30) 04/15/18 02:34 Anion Gap 17 mmol/L 04/15/18 02:34 BUN 19 mg/dL (9-20) 04/15/18 02:34 Creatinine 0.7 mg/dL (0.8-1.5) L 04/15/18 02:34 Estimated GFR > 60 ml/min 04/15/18 02:34 BUN/Creatinine Ratio 27 % 04/15/18 02:34 Glucose 36 mg/dL (75-100) L* 04/15/18 02:34 POC Glucose 164 (70-105) H 04/15/18 12:31 Lactic Acid 1.60 mmol/L (0.7-2.0) 04/14/18 23:55 Calcium 9.0 mg/dL (8.4-10.2) 04/15/18 02:34 Total Bilirubin 0.40 mg/dL (0.1-1.2) 04/14/18 21:33 Direct Bilirubin < 0.2 mg/dL (0-0.2) 04/14/18 21:33 Indirect Bilirubin 0.2 mg/dL 04/14/18 21:33 AST 18 units/L (5-40) 04/14/18 21:33 ALT 21 units/L (7-56) 04/14/18 21:33 Alkaline Phosphatase 69 units/L (35-129) 04/14/18 21:33 Ammonia 79.0 umol/L (25-60) H 04/14/18 21:33 Total Creatine Kinase 254 units/L (55-170) H 04/15/18 06:12 CK-MB (CK-2) 3.5 ng/mL (0.0-4.0) 04/15/18 06:12 CK-MB (CK-2) Rel Index 1.3 (0-4) 04/15/18 06:12 Troponin T < 0.010 ng/mL (0.00-0.029) 04/15/18 06:12 Total Protein 7.4 g/dL (6.3-8.2) 04/14/18 21:33 Albumin 4.5 g/dL (3.9-5) 04/14/18 21:33 Albumin/Globulin Ratio 1.6 % 04/14/18 21:33 Urine Color Straw (Yellow) 04/14/18 21:03 Urine Turbidity Clear (Clear) 04/14/18 21:03 Urine pH 6.0 (5.0-7.0) 04/14/18 21:03 Ur Specific [place] 1.007 (1.003-1.030) 04/14/18 21:03 Urine Protein <15 mg/dl mg/dL (Negative) 04/14/18 21:03 Urine Glucose (UA) >=500 mg/dL (Negative) 04/14/18 21:03 Urine Ketones Neg mg/dL (Negative) 04/14/18 21:03 Urine Blood Mod (Negative) 04/14/18 21:03 Urine Nitrite Neg (Negative) 04/14/18 21:03 Urine Bilirubin Neg (Negative) 04/14/18 21:03 Urine Urobilinogen < 2.0 mg/dL (<2.0) 04/14/18 21:03 Ur Leukocyte Esterase Neg (Negative) 04/14/18 21:03 Urine WBC (Auto) 2.0 /HPF (0.0-6.0) 04/14/18 21:03 Urine RBC (Auto) 2.0 /HPF (0.0-6.0) 04/14/18 21:03 Urine Mucus Few /HPF 04/14/18 21:03 Urine Opiates Screen Presumptive negative 04/14/18 21:03 Urine Methadone Screen Presumptive negative 04/14/18 21:03 Ur Barbiturates Screen Presumptive negative 04/14/18 21:03 Ur Phencyclidine Scrn Presumptive negative 04/14/18 21:03 Ur Amphetamines Screen Presumptive negative 04/14/18 21:03 U Benzodiazepines Scrn Presumptive negative 04/14/18 21:03 Urine Cocaine Screen Presumptive positive 04/14/18 21:03 U Marijuana (THC) Screen Presumptive negative 04/14/18 21:03 Drugs of Abuse Note Disclamer 04/14/18 21:03 Plasma/Serum Alcohol < 0.01 % (0-0.07) 04/14/18 21:33
[2018-04-15] MEDS: SODIUM CHLORIDE FLUSH SYRINGE 10 ML IV SCH ×2 (14:48→22:00)
[2018-04-15 21:33] LABS: Hepatitis B Surface Antigen Non-Reactive (Negative); Hepatitis C Virus Antibody Non-Reactive (NonReactive)
[2018-04-15] MEDS: PERCOCET 5/325 PO PRN (21:34)
[2018-04-15] MEDS ORDERED: PERCOCET 5/325 ONE (21:36)
[2018-04-16] MEDS: PERCOCET 5/325 PO PRN ×5 (02:17→22:38)
[2018-04-16] MEDS: SODIUM CHLORIDE FLUSH SYRINGE 10 ML IV SCH ×2 (10:31→22:39)
[2018-04-16] MEDS: LOVENOX SUB-Q SCH (10:31)
[2018-04-16 14:56] LABS: BUN/Creatinine Ratio 9; Blood Urea Nitrogen 8 mg/dL (9-20); Calcium 8.9 mg/dL (8.4-10.2); Hemolysis Index 8
--- NOTE | 2018-04-16 18:29 | Progress Note ---
Assessment and Plan Assessment and plan: 52-year-old man with a history of hypertension, diabetes, CHF, coronary artery disease, COPD was found unresponsive by EMS on the street. His blood sugar in the field was 48, he was given D50. In the emergency room he continues to be hypoglycemic, he was started on a D10 drip, his low blood sugars have been supplemented with D50. Patient is unable to give a history, review of system is unobtainable. He was seen in the emergency room earlier this morning complaining of difficulty urinating and chest pain PAST MEDICAL HISTORY: hypertension, diabetes, CHF, coronary artery disease, COPD Hypoglycemia cocaine abuse diabetes CHF, stable Hypertension History of CVA Urinary retention, dribbling when urinating Bilateral flank pain acute toxic encephalopathy, due to cocaine now resolved Plan - Patient improved on dextrose, Counseled about cocaine cessation Optimize medications for chronic conditions Keep Griggs in place and not remove, consult urology per patient request -Obtain renal ultrasound, UA was negative DVT prophylaxis chemical History Interval history: The patient is complaining of bilateral flank pain He denies fevers, denies chills Admits to pain related to Griggs catheter, but the nurse said he was pulling on it early today No vomiting No chest pain No shortness of breath Hospitalist Physical - Physical exam Narrative exam: General.: Appears well, no distress, nontoxic HEENT: Moist mucous membranes, extraocular muscles intact, no lymphadenopathy Neck: supple Cardiac: S1-S2 heard Lungs: clear to auscultation bilaterally Abdomen: soft , nontender, nondistended, bowel sounds positive Extremities: no edema clubbing or cyanosis Skin: no rash or lesions Neurologic: no gross focal deficits Psych: calm, and cooperative - Constitutional Vitals: Temp Pulse Resp BP Pulse Ox 98.3 F 84 17 125/76 98 04/16/18 04:49 04/16/18 07:35 04/15/18 22:30 04/15/18 22:30 04/16/18 07:35 Results - Labs CBC & Chem 7: 04/15/18 02:34 04/16/18 13:46 Labs: Laboratory Last Values WBC 5.9 K/mm3 (4.5-11.0) 04/15/18 02:34 RBC 4.97 M/mm3 (3.65-5.03) 04/15/18 02:34 Hgb 14.6 gm/dl (11.8-15.2) 04/15/18 02:34 Hct 44.0 % (35.5-45.6) 04/15/18 02:34 MCV 89 fl (84-94) 04/15/18 02:34 MCH 29 pg (28-32) 04/15/18 02:34 MCHC 33 % (32-34) 04/15/18 02:34 RDW 13.6 % (13.2-15.2) 04/15/18 02:34 Plt Count 332 K/mm3 (140-440) 04/15/18 02:34 Lymph % (Auto) 12.5 % (13.4-35.0) L 04/15/18 02:34 [place] % (Auto) 6.4 % (0.0-7.3) 04/15/18 02:34 Eos % (Auto) 0.0 % (0.0-4.3) 04/15/18 02:34 Baso % (Auto) 0.5 % (0.0-1.8) 04/15/18 02:34 Lymph # 0.7 K/mm3 (1.2-5.4) L 04/15/18 02:34 [place] # 0.4 K/mm3 (0.0-0.8) 04/15/18 02:34 Eos # 0.0 K/mm3 (0.0-0.4) 04/15/18 02:34 Baso # 0.0 K/mm3 (0.0-0.1) 04/15/18 02:34 Seg Neutrophils % 80.6 % (40.0-70.0) H 04/15/18 02:34 Seg Neutrophils # 4.8 K/mm3 (1.8-7.7) 04/15/18 02:34 PT 10.3 Sec. (12.2-14.9) L 04/14/18 21:33 INR 0.69 (0.87-1.13) L 04/14/18 21:33 APTT 20.8 Sec. (24.2-36.6) L 04/14/18 21:33 Sodium 138 mmol/L (137-145) 04/16/18 13:46 Potassium 4.1 mmol/L (3.6-5.0) 04/16/18 13:46 Chloride 96.4 mmol/L (98-107) L 04/16/18 13:46 Carbon Dioxide 29 mmol/L (22-30) 04/16/18 13:46 Anion Gap 17 mmol/L 04/16/18 13:46 BUN 8 mg/dL (9-20) L 04/16/18 13:46 Creatinine 0.9 mg/dL (0.8-1.5) 04/16/18 13:46 Estimated GFR > 60 ml/min 04/16/18 13:46 BUN/Creatinine Ratio 9 % 04/16/18 13:46 Glucose 238 mg/dL (75-100) H 04/16/18 13:46 POC Glucose 168 (70-105) H 04/16/18 13:14 Hemoglobin A1c 13.7 % (4-6) H 04/16/18 13:46 Lactic Acid 1.60 mmol/L (0.7-2.0) 04/14/18 23:55 Calcium 8.9 mg/dL (8.4-10.2) 04/16/18 13:46 Total Bilirubin 0.40 mg/dL (0.1-1.2) 04/14/18 21:33 Direct Bilirubin < 0.2 mg/dL (0-0.2) 04/14/18 21:33 Indirect Bilirubin 0.2 mg/dL 04/14/18 21:33 AST 18 units/L (5-40) 04/14/18 21:33 ALT 21 units/L (7-56) 04/14/18 21:33 Alkaline Phosphatase 69 units/L (35-129) 04/14/18 21:33 Ammonia 79.0 umol/L (25-60) H 04/14/18 21:33 Total Creatine Kinase 254 units/L (55-170) H 04/15/18 06:12 CK-MB (CK-2) 3.5 ng/mL (0.0-4.0) 04/15/18 06:12 CK-MB (CK-2) Rel Index 1.3 (0-4) 04/15/18 06:12 Troponin T < 0.010 ng/mL (0.00-0.029) 04/15/18 06:12 Total Protein 7.4 g/dL (6.3-8.2) 04/14/18 21:33 Albumin 4.5 g/dL (3.9-5) 04/14/18 21:33 Albumin/Globulin Ratio 1.6 % 04/14/18 21:33 Urine Color Straw (Yellow) 04/14/18 21:03 Urine Turbidity Clear (Clear) 04/14/18 21:03 Urine pH 6.0 (5.0-7.0) 04/14/18 21:03 Ur Specific [place] 1.007 (1.003-1.030) 04/14/18 21:03 Urine Protein <15 mg/dl mg/dL (Negative) 04/14/18 21:03 Urine Glucose (UA) >=500 mg/dL (Negative) 04/14/18 21:03 Urine Ketones Neg mg/dL (Negative) 04/14/18 21:03 Urine Blood Mod (Negative) 04/14/18 21:03 Urine Nitrite Neg (Negative) 04/14/18 21:03 Urine Bilirubin Neg (Negative) 04/14/18 21:03 Urine Urobilinogen < 2.0 mg/dL (<2.0) 04/14/18 21:03 Ur Leukocyte Esterase Neg (Negative) 04/14/18 21:03 Urine WBC (Auto) 2.0 /HPF (0.0-6.0) 04/14/18 21:03 Urine RBC (Auto) 2.0 /HPF (0.0-6.0) 04/14/18 21:03 Urine Mucus Few /HPF 04/14/18 21:03 Urine Opiates Screen Presumptive negative 04/14/18 21:03 Urine Methadone Screen Presumptive negative 04/14/18 21:03 Ur Barbiturates Screen Presumptive negative 04/14/18 21:03 Ur Phencyclidine Scrn Presumptive negative 04/14/18 21:03 Ur Amphetamines Screen Presumptive negative 04/14/18 21:03 U Benzodiazepines Scrn Presumptive negative 04/14/18 21:03 Urine Cocaine Screen Presumptive positive 04/14/18 21:03 U Marijuana (THC) Screen Presumptive negative 04/14/18 21:03 Drugs of Abuse Note Disclamer 04/14/18 21:03 Plasma/Serum Alcohol < 0.01 % (0-0.07) 04/14/18 21:33 Hepatitis A IgM Ab Non-reactive (NonReactive) 04/15/18 21:00 Hep Bs Antigen Non-reactive (Negative) 04/15/18 21:00 Hep B Core IgM Ab Non-reactive (NonReactive) 04/15/18 21:00 Hepatitis C Antibody Non-reactive (NonReactive) 04/15/18 21:00 HIV 1&2 Antibody Rapid Non react (Non React) 04/15/18 21:00 HIV P24 Antigen Non react (Non React) 04/15/18 21:00 Nutrition/Malnutrition Assess - Dietary Evaluation Nutrition/Malnutrition Findings: Nutrition Notes Start: 04/16/18 09:5 5 Freq: Status: Active Protocol: Document 04/16/18 09:55 [place] (Rec: 04/16/18 09:56 OH [id number]) Nutrition Notes Initial or Follow up Brief Note Subjective/Other Information RN screen for skin risk. Andrés score= 22. Nutrition Intervention Revisit per MD consult or patient Sign Off request:
--- NOTE | 2018-04-16 23:46 | Cat Scan Report ---
FINAL REPORT PROCEDURE: CT abdomen and pelvis without contrast. TECHNIQUE: Computerized axial tomography of the abdomen and pelvis was performed after the IV inject ion of iodinated nonionic contrast. HISTORY: Bilateral flank pain. COMPARISON: CT abdomen and pelvis 04/01/2018. FINDINGS: The lung bases are clear. There are no pleural effusions. The heart size is normal. The liver, pancre as and spleen appear normal. The gallbladder is present. There is no biliary dilatation. The adrenal glands are not enlarged. Both kidneys appear normal in size and configuration. There is normal excret ion from both kidneys. The abdominal aorta has a normal caliber. There is no retroperitoneal adenopat hy. The unopacified gastrointestinal tract is unremarkable. The appendix is not identified. There is a Griggs catheter in the bladder. The seminal vesicles and prostate appear normal. The regional skelet on appears intact. IMPRESSION: Normal studies of the abdomen and pelvis.
[2018-04-17] MEDS: HumaLOG SUB-Q SCH ×4 (00:32→17:32)
[2018-04-17] MEDS: PERCOCET 5/325 PO PRN ×3 (02:50→12:24)
[2018-04-17] MEDS: LOVENOX SUB-Q SCH (09:04)
[2018-04-17] MEDS: SODIUM CHLORIDE FLUSH SYRINGE 10 ML IV SCH (09:06)
--- NOTE | 2018-04-17 11:54 | Discharge Summary ---
Providers - Providers Date of Admission: 04/14/18 23:52 Attending physician: PATTI CORTEZ MD 04/16/18 18:23 Consult to Physician [CONS] Routine Comment: Consulting Provider: CLARA STAHL Physician Instructions: Reason For Exam: urinary retention Primary care physician: ORGANIC PREPARATION TECHNICIAN Hospitalization Condition: Stable Hospital course: 52-year-old man with a history of hypertension, diabetes, CHF, coronary artery disease, COPD was found unresponsive by EMS on the street. PAST MEDICAL HISTORY: hypertension, diabetes, CHF, coronary artery disease, COPD * EMS found him unresponsive in the streets with hypoglycemia. He was treated with dextrose, he improved. His UDS was positive for cocaine. He was counseled about cocaine cessation. * His medications were optimized his chronic conditions which included hypertension diabetes, urinary retention * The patient had severe urinary retention, therefore Griggs catheter was placed. The patient is being discharged with a Griggs catheter, and is to follow-up in urology clinic Diagnoses Hypoglycemia cocaine abuse diabetes CHF, stable Hypertension History of CVA Urinary retention, dribbling when urinating acute toxic encephalopathy, due to cocaine now resolved Chest pain due to cocaine abuse Disposition: DC-01 TO HOME OR SELFCARE Time spent for discharge: 33 mins Core Measure Documentation - Palliative Care Palliative Care/ Comfort Measures: Not Applicable - Core Measures Any of the following diagnoses?: none Exam - Constitutional Vitals: Temp Pulse Resp BP Pulse Ox 97.6 F 83 16 86/49 97 04/17/18 08:41 04/17/18 08:41 04/17/18 08:41 04/17/18 08:41 04/17/18 08:41 General appearance: Present: no acute distress, well-nourished - EENT Eyes: Present: PERRL ENT: hearing intact, clear oral mucosa - Neck Neck: Present: supple, normal ROM - Respiratory Respiratory effort: normal Respiratory: bilateral: CTA - Cardiovascular Heart Sounds: Present: S1 & S2. Absent: rub, click - Extremities Extremities: pulses symmetrical, No edema Peripheral Pulses: within normal limits - Abdominal General gastrointestinal: Present: soft, non-tender, non-distended, normal bowel sounds Male genitourinary: Present: normal - Integumentary Integumentary: Present: clear, warm, dry - Musculoskeletal Musculoskeletal: gait normal, strength equal bilaterally - Psychiatric Psychiatric: appropriate mood/affect, intact judgment & insight - Neurologic Neurologic: CNII-XII intact, moves all extremities Plan Follow up with: AUDI MONTANO MD [Staff Physician] - 7 Days PRIMARY CARE, [Primary Care Provider] - 3-5 Days Prescriptions: Insulin Aspart Prot/Aspart(Nf) [NovoLOG Mix 70/30 VIAL] 4 units SQ BID #1 vial
--- NOTE | 2018-04-17 17:40 | Ultrasound Report ---
FINAL REPORT PROCEDURE: US RENAL BILAT TECHNIQUE: Real-time sonography in multiple planes of the kidneys, ureters and urinary bladder was p erformed with image documentation. CPT 35518 HISTORY: flank pain COMPARISON: No prior studies are available for comparison. FINDINGS: RIGHT kidney: Normal echotexture. No focal renal mass, calculus, or hydronephrosis. Cortex measures 1 .8 centimeters in thickness. Length: 11.0 cm. LEFT kidney: Normal echotexture. No focal renal mass, calculus, or hydronephrosis. Cortex measures 2. 1 centimeters in thickness. Length: 10.2cm. Bladder: Griggs catheter is present. IMPRESSION: No hydronephrosis bilaterally.
[2018-04-17 17:41] VITALS: BP 108/60
== END 2018-04-17 18:19 | disposition home or self-care (01) | DRG 917 ==
LOC: ED 20:18 → 4A 23:52 → IMCU 04-15 01:05 → 3A 04-15 17:25 → CC1 04-15 18:44 → IMCU 04-15 23:43 → 4A 04-16 21:25
PROVIDERS: ADMIT Internal Medicine; ATTEND Internal Medicine
DX: T40.5X1A Poisoning by cocaine, accidental (unintentional), initial encounter (principal); G92 Toxic encephalopathy; I42.9 Cardiomyopathy, unspecified; F14.10 Cocaine abuse, uncomplicated; I10 Essential (primary) hypertension; E11.649 Type 2 diabetes mellitus with hypoglycemia without coma; I25.10 Atherosclerotic heart disease of native coronary artery without angina pectoris; I50.9 Heart failure, unspecified; I11.0 Hypertensive heart disease with heart failure; J44.9 Chronic obstructive pulmonary disease, unspecified; N40.1 Benign prostatic hyperplasia with lower urinary tract symptoms; R33.9 Retention of urine, unspecified; Z90.49 Acquired absence of other specified parts of digestive tract; Z95.810 Presence of automatic (implantable) cardiac defibrillator; Z82.49 Family history of ischemic heart disease and other diseases of the circulatory system; Z79.84 Long term (current) use of oral hypoglycemic drugs; Z79.899 Other long term (current) drug therapy; Z86.73 Personal history of transient ischemic attack (TIA), and cerebral infarction without residual deficits; I25.2 Old myocardial infarction; Z71.51 Drug abuse counseling and surveillance of drug abuser; Y92.89 Other specified places as the place of occurrence of the external cause
CPT/HCPCS: 36415; 70450; 74177; 76770; 80048; 80074; 80076; 80307; 80320; 81001; 82140; 82550; 82553; 82962; 83036; 84484; 85025; 85610; 85730; 87040; 87806; 93005; 93010; 96361; 96372; 96374; 96375; 96376; G0378; G0480; J1650; J1815; J2310; J2405; J7030; J7040; Q9967

== ENCOUNTER 2018-05-09 22:32 | Emergency (ER) | payer SELFPAY ==
[2018-05-09] MEDS ORDERED: NACL 0.9% 1000 ML 1,000 ML IV ONE (23:12)
[2018-05-09] MEDS ORDERED: ASPIRIN PO ONE (23:26)
[2018-05-09] MEDS ORDERED: NACL 0.9% 500 ML 500 ML IV ONE (23:26)
--- NOTE | 2018-05-09 23:26 | Emergency Department Report ---
ED Chest Pain HPI - General Chief Complaint: Chest Pain Stated Complaint: WEAKNESS/NOT EATING Time Seen by Provider: 05/09/18 23:10 Source: EMS Mode of arrival: Stretcher Limitations: Physical Limitation - History of Present Illness Initial Comments: Patient is a 52-year-old male that presents to emergency with complaints of left-sided chest pain 2 days. Patient states that the chest pain is worsening. Patient states is nonradiating is 10 out of 10. Patient states chest pain is better with rest and worse with exertion.. Patient also complains of nausea, vomiting, abdominal pain 2 days. Patient states that the abdominal pain is worsening. Patient states she has not been able to hold anything down for 2 days. Patient states abdominal pain is 10 out of 10. Patient states that the pain is better with rest and worse with exertion and movement and vomiting. Patient states he has leg pain and that he was diagnosed with a DVT/PE and has n ot started his anticoagulation therapy. MD Complaint: chest pain -: Sudden Pain Location: substernal, left chest Pain Radiation: none Severity: severe Severity scale (0 -10): 10 Quality: sharp Consistency: constant Improves With: rest Worsens With: movement re: vomting, dyspnea. denies: nausea, diaphoresis, sense of impending doom Other Symptoms: denies: cough, fever, syncope, rash, acid taste in mouth, leg swelling, palpitations, burping Treatments Prior to Arrival: none Aspirin use within the Past 7 Days: (0) No - Related Data On Oral Contraceptives: No Previous Rx's Medication Instructions Recorded Last Taken Type HYDROcodone/APAP 5-325 [Levasy 1 - 2 each PO Q6HR PRN #14 tablet 01/30/18 Unknown Rx 5-325 mg TAB] Cyclobenzaprine [Flexeril 10 MG 10 mg PO TID PRN #30 tablet 02/07/18 Unknown Rx TAB] Naproxen [Naprosyn] 500 mg PO BID PRN #30 tablet 02/07/18 Unknown Rx Dicyclomine [Bentyl] 20 mg PO QID PRN #20 tablet 04/01/18 Unknown Rx Ondansetron [Zofran ODT TAB] 4 mg PO Q8HR PRN #20 tab.rapdis 04/01/18 Unknown Rx Promethazine [Phenergan TAB] 25 mg PO Q6HR PRN #20 tab 04/01/18 Unknown Rx Insulin Aspart Prot/Aspart(Nf) 4 units SQ BID #1 vial 04/17/18 Unknown Rx [NovoLOG Mix 70/30 VIAL] Allergies Allergy/AdvReac Type Severity Reaction Status Date / Time No Known Allergies Allergy Verified 01/24/18 08:29 Heart Score - HEART Score History: Slightly suspicious EKG: Normal Age: 45-65 Risk factors: > 3 risk factors or hx of atherosclerotic disease Troponin: < normal limit HEART Score: 3 ED Review of Systems ROS: Stated complaint: WEAKNESS/NOT EATING Other details as noted in HPI Constitutional: denies: chills, fever Eyes: denies: eye pain, eye discharge, vision change ENT: denies: ear pain, throat pain Respiratory: shortness of breath. denies: cough, wheezing Cardiovascular: chest pain. denies: palpitations Endocrine: no symptoms reported Gastrointestinal: abdominal pain, nausea, vomiting. denies: diarrhea Genitourinary: denies: urgency, dysuria Musculoskeletal: denies: back pain, joint swelling, arthralgia Skin: denies: rash, lesions Neurological: denies: headache, weakness, paresthesias Psychiatric: denies: anxiety, depression Hematological/Lymphatic: denies: easy bleeding, easy bruising ED Past Medical Hx - Past Medical History Previous Medical History?: Yes Hx Hypertension: Yes Hx CVA: Yes Hx Heart Attack/AMI: Yes (Cardiomyopathy) Hx Congestive Heart Failure: Yes Hx Diabetes: Yes Hx Renal Disease: Yes Hx Asthma: No Hx COPD: Yes Hx HIV: No Additional medical history: BPH - indwelling catherter - Surgical History Past Surgical History?: Yes Hx Pacemaker: Yes Hx Internal Defibrillator: Yes Hx Appendectomy: Yes Additional Surgical History: HERNIA SURGERY, Pacemaker - Family History Family history: no significant - Social History Smoking Status: Never Smoker Substance Use Type: None - Medications Home Medications: Home Medications Medication Instructions Recorded Confirmed Last Taken Type HYDROcodone/APAP 5-325 [Levasy 1 - 2 each PO Q6HR PRN #14 tablet 01/30/18 Unknown Rx 5-325 mg TAB] Cyclobenzaprine [Flexeril 10 MG 10 mg PO TID PRN #30 tablet 02/07/18 Unknown Rx TAB] Naproxen [Naprosyn] 500 mg PO BID PRN #30 tablet 02/07/18 Unknown Rx Dicyclomine [Bentyl] 20 mg PO QID PRN #20 tablet 04/01/18 Unknown Rx Ondansetron [Zofran ODT TAB] 4 mg PO Q8HR PRN #20 tab.rapdis 04/01/18 Unknown Rx Promethazine [Phenergan TAB] 25 mg PO Q6HR PRN #20 tab 04/01/18 Unknown Rx Insulin Aspart Prot/Aspart(Nf) 4 units SQ BID #1 vial 04/17/18 Unknown Rx [NovoLOG Mix 70/30 VIAL] ED Physical Exam - General Limitations: Physical Limitation General appearance: alert, in no apparent distress - Head Head exam: Present: atraumatic, normocephalic - Eye Eye exam: Present: normal appearance - ENT ENT exam: Present: mucous membranes moist - Neck Neck exam: Present: normal inspection - Respiratory Respiratory exam: Present: normal lung sounds bilaterally. Absent: respiratory distress - Cardiovascular Cardiovascular Exam: Present: regular rate, normal rhythm. Absent: systolic murmur, diastolic murmur, rubs, gallop - GI/Abdominal GI/Abdominal exam: Present: soft, tenderness, normal bowel sounds - Rectal Rectal exam: Present: deferred - Extremities Exam Extremities exam: Present: normal inspection - Back Exam Back exam: Present: normal inspection - Neurological Exam Neurological exam: Present: alert, oriented X3 - Psychiatric Psychiatric exam: Present: normal affect, normal mood - Skin Skin exam: Present: warm, dry, intact, normal color. Absent: rash ED Course Vital Signs 05/09/18 05/10/18 05/10/18 23:07 00:00 00:30 Temperature 98.4 F Pulse Rate 105 H 92 H 87 Respiratory 18 26 H 24 Rate Blood Pressure 72/42 83/37 79/49 O2 Sat by Pulse 100 96 96 Oximetry 05/10/18 05/10/18 05/10/18 01:00 02:29 02:30 Temperature Pulse Rate 102 H 85 83 Respiratory 32 H 12 17 Rate Blood Pressure 89/49 83/42 81/39 O2 Sat by Pulse 100 Oximetry - Reevaluation(s) Reevaluation #1: Patient's blood pressure still low but patient has not gotten a bolus due to IV not functioning. Nurse to replace IV and we'll give patient bolus. Last echo result reviewed from 01/2018 and EF - 55%. 05/10/18 00:21 Blood pressure is improving with saline bolus. Patient will have CT chest due to the history of PE and DVT and patient remained chest pain shortness of breath. It outweighs the risk for kidneys and CTA. 05/10/18 01:09 Current blood pressure is 120/80 05/10/18 02:17 Discussed all results with patient. Patient agrees with plan of care and admission. Patient to be Admitted to the hospitalist service. 05/10/18 03:02 Reevaluation #2: Patient eloped. Nurse let me know that the patient without letting us know. Patient eloped from the hospital. We'll let the hospitalist know of the changes 05/10/18 03:35 - Consultations Consultation #1: Hospital was consulted for admission. Hospitalist was given full report. Hospitalist to assume care patient. . 05/10/18 02:52 ALINA score - Alina Score Age > 65: (0) No Aspirin use within the Past 7 Days: (0) No 3 or more CAD Risk Factors: (1) Yes 2 or more Angina events in past 24 hrs: (1) Yes Known CAD with more than 50% Stenosis: (0) No Elevated Cardiac Markers: (0) No ST Deviation Greater than 0.5mm: (0) No ALINA Score: 2 ED Medical Decision Making - Lab Data Result diagrams: 05/10/18 00:04 05/09/18 23:26 - EKG Data -: EKG Interpreted by Me EKG shows normal: sinus rhythm, axis, intervals, QRS complexes, ST-T waves Rate: normal - Radiology Data Radiology results: report reviewed FINAL REPORT EXAM: XR CHEST 1V AP HISTORY: Chest Pain COMPARISON: April 14, 2018. FINDINGS: Frontal view(s) of the chest obtained. Stable borderline cardiac enlargement. Left-sided cardiac pacer remains in place.. No gross consolidation or effusion. No pneumothorax. IMPRESSION: No grossly acute findings. FINAL REPORT PROCEDURE: CT ABDOMEN PELVIS WO CON TECHNIQUE: Computerized axial tomography of the abdomen and pelvis was performed without intravenous contrast. This study is performed without intravascular contrast material and its sensitivity for abdominal and pelvic pathology, including neoplasms, inflammation, abscess, free fluid, thrombosis, arterial dissection and infarction, is reduced compared with a contrast enhanced study. HISTORY: abd pain. n/v COMPARISON: 04/16/2018 FINDINGS: Visualized lower thorax: No significant abnormality. Liver: Normal size and attenuation. Spleen: Normal size and attenuation. Gallbladder and biliary system: Normal. Pancreas: Normal. Adrenals: Normal. Kidneys: Normal. GI tract: No obstruction. The cecum, appendix and colon are normal. No inflammatory process. Lymph nodes and mesentery: Normal. Vasculature: Normal. Bladder: There is thickening of the urinary bladder wall, cystitis is possible.. Reproductive organs: Normal. Peritoneum: No free fluid. Musculoskeletal structures: No significant abnormality. Other: None. IMPRESSION: There is no evidence of intestinal or urinary tract obstruction. No ileus or enteritis. The appendix is normal. Thickening of the urinary bladder wall may represent cystitis.. FINAL REPORT PROCEDURE: CT ANGIO CHEST TECHNIQUE: Computerized tomographic angiography of the chest was performed after the IV injection of iodinated nonionic contrast including image processing. The image data was postprocessed using 2- dimensional multiplanar reformatted (MPR) and 3-dimensional (MIP and/or volume rendered) techniques. HISTORY: sob. cp. h/o pe COMPARISON: No prior studies are available for comparison. FINDINGS: Heart and pericardium: Normal. Thoracic aorta: Normal. Pulmonary vasculature: There is no evidence of pulmonary emboli. Lymph nodes: No enlarged thoracic lymph nodes. Lungs: Normal. Pleural space: No effusion, thickening, or pneumothorax. Musculoskeletal structures: No significant abnormality. Upper abdominal structures: No significant abnormality. IMPRESSION: The lungs are clear. There is no evidence of pulmonary arterial emboli. - Medical Decision Making Patient is a 52-year-old male presents emergency room with complaints of chest pain, shortness of breath, nausea vomiting abdominal pain. Patient found to have a gastroenteritis. Patient will be admitted to the hospitalist service for further evaluation treatment. Patient also needs ACS rule out. Patient's PE is ruled out with a CTA. Patient's lipase was slightly secondary to DVTs. Patient will be given Lovenox. Patient's blood pressure was initially low and responded well to fluids. - Differential Diagnosis prevention. Nausea vomiting. Dehydration. Abdominal pain. cp. ACS Critical Care Time: Yes Critical care attestation.: If time is entered above; I have spent that time in minutes in the direct care of this critically ill patient, excluding procedure time. Critical Care Time: 45 minutes ED Disposition Clinical Impression: MARYLOU (acute kidney injury), Shortness of breath, Medical non-compliance, Acute gastroenteritis Chest pain Qualifiers: Chest pain type: unspecified Qualified Code(s): R07.9 - Chest pain, unspecified Hypotension Qualifiers: Hypotension type: unspecified hypotension type Qualified Code(s): I95.9 - Hypotension, unspecified Abdominal pain Qualifiers: Abdominal location: generalized Qualified Code(s): R10.84 - Generalized abdominal pain Leg pain Qualifiers: Laterality: unspecified laterality Qualified Code(s): M79.606 - Pain in leg, unspecified Nausea & vomiting Qualifiers: Vomiting type: unspecified Vomiting Intractability: intractable Qualified Code(s): R11.2 - Nausea with vomiting, unspecified Disposition: ELOPED Is pt being admited?: Yes Does the pt Need Aspirin: No Condition: Critical Referrals: KEITH GARZA [Primary Care Provider] - 3-5 Days Time of Disposition: 02:52
[2018-05-09 23:36] LABS: Basophils # (Auto) 0.1 K/mm3 (0.0-0.1); Basophils % (Auto) 1.1 % (0.0-1.8); Eosinophils % (Auto) 0.2 % (0.0-4.3); Hematocrit 37.4 % (35.5-45.6); Hemoglobin 12.5 gm/dl (11.8-15.2); Lymphocytes # (Auto) 1.5 K/mm3 (1.2-5.4); Lymphocytes % (Auto) 15.7 % (13.4-35.0); Mean Corpuscular HGB Conc 33 % (32-34); Mean Corpuscular Volume 87 fl (84-94); Monocytes # (Auto) 0.8 K/mm3 (0.0-0.8); Monocytes % (Auto) 8.2 % (0.0-7.3); Platelet Count 621 K/mm3 (140-440); Red Blood Count 4.32 M/mm3 (3.65-5.03); Red Cell Distribution Width 12.9 % (13.2-15.2)
--- NOTE | 2018-05-09 23:55 | XRay Report ---
FINAL REPORT EXAM: XR CHEST 1V AP HISTORY: Chest Pain COMPARISON: April 14, 2018. FINDINGS: Frontal view(s) of the chest obtained. Stable borderline cardiac enlargement. Left-sided cardiac pace r remains in place.. No gross consolidation or effusion. No pneumothorax. IMPRESSION: No grossly acute findings.
[2018-05-10 00:01] LABS: Albumin 3.6 g/dL (3.9-5); Calcium 9.3 mg/dL (8.4-10.2)
[2018-05-10 00:24] LABS: Basophils # (Auto) 0.1 K/mm3 (0.0-0.1); Basophils % (Auto) 0.7 % (0.0-1.8); Eosinophils % (Auto) 0.1 % (0.0-4.3); Hematocrit 38.1 % (35.5-45.6); Hemoglobin 12.6 gm/dl (11.8-15.2); Lymphocytes # (Auto) 1.4 K/mm3 (1.2-5.4); Mean Corpuscular HGB Conc 33 % (32-34); Mean Corpuscular Volume 87 fl (84-94); Monocytes # (Auto) 0.7 K/mm3 (0.0-0.8); Monocytes % (Auto) 8.5 % (0.0-7.3); Platelet Count 563 K/mm3 (140-440); Red Blood Count 4.38 M/mm3 (3.65-5.03); Red Cell Distribution Width 13.1 % (13.2-15.2)
[2018-05-10] MEDS ORDERED: NACL 0.9% 1000 ML 1,000 ML IV ONE (01:08)
[2018-05-10] MEDS ORDERED: MAXIPIME/NS 2 GM/100 ML 2 GM/100 ML BAG IV ONE (01:16)
--- NOTE | 2018-05-10 02:30 | Cat Scan Report ---
FINAL REPORT PROCEDURE: CT ABDOMEN PELVIS WO CON TECHNIQUE: Computerized axial tomography of the abdomen and pelvis was performed without intravenous contrast. This study is performed without intravascular contrast material and its sensitivity for ab dominal and pelvic pathology, including neoplasms, inflammation, abscess, free fluid, thrombosis, art erial dissection and infarction, is reduced compared with a contrast enhanced study. HISTORY: abd pain. n/v COMPARISON: 04/16/2018 FINDINGS: Visualized lower thorax: No significant abnormality. Liver: Normal size and attenuation. Spleen: Normal size and attenuation. Gallbladder and biliary system: Normal. Pancreas: Normal. Adrenals: Normal. Kidneys: Normal. GI tract: No obstruction. The cecum, appendix and colon are normal. No inflammatory process. Lymph nodes and mesentery: Normal. Vasculature: Normal. Bladder: There is thickening of the urinary bladder wall, cystitis is possible.. Reproductive organs: Normal. Peritoneum: No free fluid. Musculoskeletal structures: No significant abnormality. Other: None. IMPRESSION: There is no evidence of intestinal or urinary tract obstruction. No ileus or enteritis. The appendix is normal. Thickening of the urinary bladder wall may represent cystitis..
--- NOTE | 2018-05-10 02:32 | Cat Scan Report ---
FINAL REPORT PROCEDURE: CT ANGIO CHEST TECHNIQUE: Computerized tomographic angiography of the chest was performed after the IV injection of iodinated nonionic contrast including image processing. The image data was postprocessed using 2-dim ensional multiplanar reformatted (MPR) and 3-dimensional (MIP and/or volume rendered) techniques. HISTORY: sob. cp. h/o pe COMPARISON: No prior studies are available for comparison. FINDINGS: Heart and pericardium: Normal. Thoracic aorta: Normal. Pulmonary vasculature: There is no evidence of pulmonary emboli. Lymph nodes: No enlarged thoracic lymph nodes. Lungs: Normal. Pleural space: No effusion, thickening, or pneumothorax. Musculoskeletal structures: No significant abnormality. Upper abdominal structures: No significant abnormality. IMPRESSION: The lungs are clear. There is no evidence of pulmonary arterial emboli.
[2018-05-10 03:58] VITALS: BP 121/61
== END 2018-05-10 03:58 | disposition left against medical advice (07) ==
LOC: ED 22:32
DX: N17.9 Acute kidney failure, unspecified (principal); K52.9 Noninfective gastroenteritis and colitis, unspecified; I95.9 Hypotension, unspecified; M79.606 Pain in leg, unspecified; Z91.14 Patient's other noncompliance with medication regimen; I11.0 Hypertensive heart disease with heart failure; I50.9 Heart failure, unspecified; E11.9 Type 2 diabetes mellitus without complications; J44.9 Chronic obstructive pulmonary disease, unspecified
CPT/HCPCS: 36415; 71045; 71275; 74176; 80053; 82140; 84484; 85025; 87040; 93005; 93010; 96361; 96365; 99291; J0692; J7030; J7040; Q9967

== ENCOUNTER 2018-05-27 05:36 | Emergency (ER) | payer OTHER ==
[2018-05-27] MEDS ORDERED: ASPIRIN PO ONE (06:39)
[2018-05-27 07:07] LABS: Hematocrit 38.7 % (35.5-45.6); Hemoglobin 12.6 gm/dl (11.8-15.2); Lymphocytes # (Auto) 1.2 K/mm3 (1.2-5.4); Lymphocytes % (Auto) 27.4 % (13.4-35.0); Mean Corpuscular HGB Conc 33 % (32-34); Mean Corpuscular Volume 88 fl (84-94); Monocytes # (Auto) 0.4 K/mm3 (0.0-0.8); Monocytes % (Auto) 9.3 % (0.0-7.3); Platelet Count 286 K/mm3 (140-440); Red Blood Count 4.39 M/mm3 (3.65-5.03); Red Cell Distribution Width 14.3 % (13.2-15.2)
[2018-05-27 07:26] LABS: BUN/Creatinine Ratio 15; Blood Urea Nitrogen 12 mg/dL (9-20); Hemolysis Index 11
[2018-05-27 10:30] LABS: Amphetamine Screen,Urine PRESUMPTIVE NEGATIVE; Benzodiazepines Screen,Urine PRESUMPTIVE NEGATIVE; Cannabinoid Screen,Urine PRESUMPTIVE NEGATIVE; Methadone Screen,Urine PRESUMPTIVE NEGATIVE; Opiate Screen,Urine PRESUMPTIVE NEGATIVE
[2018-05-27 10:31] LABS: Bacteria,Urine 2+ /HPF (Negative); Bilirubin,Urine NEG (Negative); Blood,Urine NEG (Negative); Color,Urine Yellow (Yellow); Mucus,Urine FEW /HPF; Protein,Urine <15 mg/dL mg/dL (Negative); Sperm,Urine 1+ /HPF (NP); Urobilinogen,Urine < 2.0 mg/dL (<2.0)
[2018-05-27 10:51] LABS: Cocaine Screen,Urine PRESUMPTIVE POSITIVE
[2018-05-27] MEDS ORDERED: TORADOL IV ONE (11:19)
[2018-05-27 12:40] LABS: Creatine Kinase MB 4.2 ng/mL (0.0-4.0)
[2018-05-27] MEDS ORDERED: MACROBID PO ONE (13:31)
--- NOTE | 2018-05-27 13:58 | Vascular Lab Report ---
FINAL REPORT EXAM: VL VENOUS DUPLEX LE BILAT HISTORY: b/l leg pain TECHNIQUE: Grayscale and color and spectral Doppler ultrasound imaging of the bilateral lower extrem ities was performed for the purposes of assessing for deep venous thrombosis. PRIORS: None. FINDINGS: No evidence of deep venous thrombosis is seen within the common femoral through the posterior tibial and peroneal veins. Normal compression and color flow is seen throughout the venous system of the ovi ateral lower extremities. Normal augmentation was seen. IMPRESSION: Negative for bilateral lower extremity deep venous thrombosis.
[2018-05-27 14:39] VITALS: BP 111/66
--- NOTE | 2018-05-27 14:45 | Cat Scan Report ---
CT HEAD WITHOUT CONTRAST: HISTORY: Altered mental status, possible fall, head injury. TECHNIQUE: Sequential 2.5mm CT images. COMPARISON: 04/14/18. FINDINGS: Cerebral Parenchyma: Within normal limits. Cerebellum: Within normal limits. Brainstem: Within normal limits. Ventricles: Normal. Sella: Normal. Extra-axial spaces: Normal. Basal Cisterns: Normal. Intracranial Hemorrhage: None. Midline Shift: None. Calvarium: Normal. Chronic right nasal bone fracture is noted. Sinuses: Normal. Mastoid Air Cells: Normal. Visualized Orbits: Normal. IMPRESSION: Cranial CT scan within normal limits.
--- NOTE | 2018-05-27 14:52 | XRay Report ---
LEFT RIBS, 2 VIEWS: History: pain. Limited exam. Only 2 views of the left ribs could be obtained because the patient was undergoing seizures. Left lower ribs 9-12 are incompletely imaged. There is no obvious left rib deformity or bony lesion. The left lung is well-aerated. IMPRESSION: Limited exam. No left rib deformity is detected.
--- NOTE | 2018-05-27 15:05 | Emergency Department Report ---
ED Chest Pain HPI - General Chief Complaint: Chest Pain Stated Complaint: CHEST PAIN Time Seen by Provider: 05/27/18 10:19 Source: EMS Mode of arrival: Stretcher Limitations: No Limitations - History of Present Illness Initial Comments: 52-year-old male with a past medical history CHF, COPD, diabetes, nonischemic cardiomyopathy, hypertension, renal disease, BPH with urinary retention, previous appendectomy, AICD, and cocaine abuse presents to the hospital with alteration in mental status and chest pain. Patient was arrested today. While in halfway he became unresponsive and EMS provided Narcan. Upon arrival he was awake and oriented after Narcan was provided and presented alert complaining of left sided chest pain. Pain is at the left side of the chest at the area of his pacemaker in the left chest wall. Patient thinks he might have fallen. At the bedside patient is having intermittent generalized shaking while responding and speaking. He states that he is shaking because of the pain. No signs of alteration of mental status, tongue laceration, urinary incontinence, or post ictal state. Patient also complains of bilateral leg pain and states he has a history of DVT and has been noncompliant with his anticoagulant medication. He also states he has chronic pain secondary to diabetic neuropathy. Patient was just seen and evaluated here May [address] had a negative CT angiogram chest for pulmonary embolism. Last stress test on record was from March 2017. It was negative with the EF of 56%. Patient has also had recurrent admissions here for alteration in mental status secondary to hypoglycemia. When questioned patient states he does have a history of seizures but there is no report of previous seizures on his past hospital visits and multiple admissions with him signing out AGAINST MEDICAL ADVICE. Severity scale (0 -10): 10 - Related Data Previous Rx's Medication Instructions Recorded Last Taken Type HYDROcodone/APAP 5-325 [[place] 1 - 2 each PO Q6HR PRN #14 tablet 01/30/18 Unknown Rx 5-325 mg TAB] Cyclobenzaprine [Flexeril 10 MG 10 mg PO TID PRN #30 tablet 02/07/18 Unknown Rx TAB] Naproxen [Naprosyn] 500 mg PO BID PRN #30 tablet 02/07/18 Unknown Rx Dicyclomine [Bentyl] 20 mg PO QID PRN #20 tablet 04/01/18 Unknown Rx Ondansetron [Zofran ODT TAB] 4 mg PO Q8HR PRN #20 tab.rapdis 04/01/18 Unknown Rx Promethazine [Phenergan TAB] 25 mg PO Q6HR PRN #20 tab 04/01/18 Unknown Rx Insulin Aspart Prot/Aspart(Nf) 4 units SQ BID #1 vial 04/17/18 Unknown Rx [NovoLOG Mix 70/30 VIAL] levETIRAcetam [Keppra TAB] 500 mg PO BID #60 tablet 05/27/18 Unknown Rx Allergies Allergy/AdvReac Type Severity Reaction Status Date / Time No Known Allergies Allergy Verified 01/24/18 08:29 Heart Score - HEART Score History: Slightly suspicious EKG: Normal Age: 45-65 Risk factors: > 3 risk factors or hx of atherosclerotic disease Troponin: < normal limit HEART Score: 3 ED Review of Systems ROS: Stated complaint: CHEST PAIN Other details as noted in HPI Comment: All other systems reviewed and negative ED Past Medical Hx - Past Medical History Previous Medical History?: Yes Hx Hypertension: Yes Hx CVA: Yes Hx Congestive Heart Failure: Yes (nonischemic cardiomyopathy) Hx Diabetes: Yes Hx Renal Disease: Yes Hx Asthma: No Hx COPD: Yes Hx HIV: No Additional medical history: BPH - indwelling catherter - Surgical History Hx Pacemaker: Yes Hx Internal Defibrillator: Yes Hx Appendectomy: Yes Additional Surgical History: HERNIA SURGERY, Pacemaker - Social History Smoking Status: Never Smoker Substance Use Type: None - Medications Home Medications: Home Medications Medication Instructions Recorded Confirmed Last Taken Type HYDROcodone/APAP 5-325 [[place] 1 - 2 each PO Q6HR PRN #14 tablet 01/30/18 Unknown Rx 5-325 mg TAB] Cyclobenzaprine [Flexeril 10 MG 10 mg PO TID PRN #30 tablet 02/07/18 Unknown Rx TAB] Naproxen [Naprosyn] 500 mg PO BID PRN #30 tablet 02/07/18 Unknown Rx Dicyclomine [Bentyl] 20 mg PO QID PRN #20 tablet 04/01/18 Unknown Rx Ondansetron [Zofran ODT TAB] 4 mg PO Q8HR PRN #20 tab.rapdis 04/01/18 Unknown Rx Promethazine [Phenergan TAB] 25 mg PO Q6HR PRN #20 tab 04/01/18 Unknown Rx Insulin Aspart Prot/Aspart(Nf) 4 units SQ BID #1 vial 04/17/18 Unknown Rx [NovoLOG Mix 70/30 VIAL] levETIRAcetam [Keppra TAB] 500 mg PO BID #60 tablet 05/27/18 Unknown Rx ED Physical Exam - General Limitations: No Limitations - Other Other exam information: General: No limitations, patient is alert in no acute distress Head exam: Atraumatic, normocephalic Eyes exam: Normal appearance, pupils equal reactive to light, extraocular movements intact ENT: Moist mucous membrane, normal oropharynx Neck exam: Normal inspection, full range of motion, no meningismus nontender Respiratory exam: Clear to auscultation bilateral, no wheezes, rales, crackles Cardiovascular: Normal rate and rhythm, normal heart sounds Abdomen: Soft, nondistended, and nontender, with normal bowel sounds, no rebound, or guarding Extremity: Full range of motion normal inspection no deformity Back: Normal Inspection, full range of motion, no tenderness Neurologic: Alert, oriented x3, cranial nerves intact, no motor or sensory deficit Psychiatric: normal affect, normal mood Skin: Warm, dry, intact ED Course Vital Signs 05/27/18 05/27/18 05/27/18 05:42 05:46 05:48 Temperature 98.4 F Pulse Rate 96 H 92 H 88 Respiratory 18 16 20 Rate Blood Pressure 103/51 Blood Pressure 103/51 [Right] O2 Sat by Pulse 98 98 97 Oximetry 05/27/18 05/27/18 05/27/18 06:00 06:16 06:30 Temperature Pulse Rate 87 85 88 Respiratory 18 16 14 Rate Blood Pressure 120/67 120/67 129/81 Blood Pressure [Right] O2 Sat by Pulse 98 99 98 Oximetry 05/27/18 05/27/18 05/27/18 06:46 07:00 07:16 Temperature Pulse Rate 88 91 H 92 H Respiratory 12 13 15 Rate Blood Pressure 120/67 134/85 134/85 Blood Pressure [Right] O2 Sat by Pulse 99 99 97 Oximetry 05/27/18 05/27/18 05/27/18 07:30 07:46 08:00 Temperature Pulse Rate 91 H 92 H 98 H Respiratory 12 12 14 Rate Blood Pressure 134/85 134/85 134/85 Blood Pressure [Right] O2 Sat by Pulse 96 99 100 Oximetry 05/27/18 05/27/18 05/27/18 08:16 08:30 08:46 Temperature Pulse Rate 93 H 102 H 99 H Respiratory 13 15 14 Rate Blood Pressure 127/80 115/83 115/83 Blood Pressure [Right] O2 Sat by Pulse 99 99 98 Oximetry 05/27/18 05/27/18 05/27/18 09:00 09:16 09:30 Temperature Pulse Rate 97 H 96 H 96 H Respiratory 17 16 17 Rate Blood Pressure 115/83 105/53 105/53 Blood Pressure [Right] O2 Sat by Pulse 98 97 98 Oximetry 05/27/18 05/27/18 05/27/18 09:46 10:00 10:16 Temperature Pulse Rate 90 92 H 90 Respiratory 11 L 13 12 Rate Blood Pressure 108/55 108/55 120/73 Blood Pressure [Right] O2 Sat by Pulse 98 97 98 Oximetry 05/27/18 05/27/18 05/27/18 10:30 10:46 11:00 Temperature Pulse Rate 89 90 94 H Respiratory 12 14 11 L Rate Blood Pressure 130/76 130/76 130/76 Blood Pressure [Right] O2 Sat by Pulse 99 98 98 Oximetry 05/27/18 05/27/18 05/27/18 11:16 11:30 13:40 Temperature Pulse Rate 110 H 93 H 95 H Respiratory 18 17 15 Rate Blood Pressure 118/68 115/70 115/70 Blood Pressure [Right] O2 Sat by Pulse 98 99 98 Oximetry 05/27/18 05/27/18 05/27/18 13:46 14:23 14:30 Temperature Pulse Rate 94 H 93 H Respiratory 13 16 Rate Blood Pressure 115/70 107/64 111/66 Blood Pressure [Right] O2 Sat by Pulse 98 Oximetry ALCIDES score - Alcides Score Age > 65: (0) No Aspirin use within the Past 7 Days: (0) No 3 or more CAD Risk Factors: (1) Yes 2 or more Angina events in past 24 hrs: (1) Yes Known CAD with more than 50% Stenosis: (0) No Elevated Cardiac Markers: (0) No ST Deviation Greater than 0.5mm: (0) No ALCIDES Score: 2 ED Medical Decision Making - Lab Data Result diagrams: 05/27/18 06:47 05/27/18 06:47 Lab Results 05/27/18 05/27/18 05/27/18 Range/Units 06:47 06:47 09:00 WBC 4.2 L (4.5-11.0) K/mm3 RBC 4.39 (3.65-5.03) M/mm3 Hgb 12.6 (11.8-15.2) gm/dl Hct 38.7 (35.5-45.6) % MCV 88 (84-94) fl MCH 29 (28-32) pg MCHC 33 (32-34) % RDW 14.3 (13.2-15.2) % Plt Count 286 (140-440) K/mm3 Lymph % (Auto) 27.4 (13.4-35.0) % [place] % (Auto) 9.3 H (0.0-7.3) % Eos % (Auto) 0.0 (0.0-4.3) % Baso % (Auto) 1.0 (0.0-1.8) % Lymph # 1.2 (1.2-5.4) K/mm3 [place] # 0.4 (0.0-0.8) K/mm3 Eos # 0.0 (0.0-0.4) K/mm3 Baso # 0.0 (0.0-0.1) K/mm3 Seg Neutrophils % 62.3 (40.0-70.0) % Seg Neutrophils # 2.6 (1.8-7.7) K/mm3 D-Dimer (0-234) ng/mlDDU Sodium 141 (137-145) mmol/L Potassium 4.7 (3.6-5.0) mmol/L Chloride 101.5 (98-107) mmol/L Carbon Dioxide 26 (22-30) mmol/L Anion Gap 18 mmol/L BUN 12 (9-20) mg/dL Creatinine 0.8 (0.8-1.5) mg/dL Estimated GFR > 60 ml/min BUN/Creatinine Ratio 15 % Glucose 237 H (75-100) mg/dL POC Glucose (70-105) Calcium 9.0 (8.4-10.2) mg/dL Magnesium (1.7-2.3) mg/dL Total Creatine Kinase (55-170) units/L CK-MB (CK-2) (0.0-4.0) ng/mL CK-MB (CK-2) Rel Index (0-4) Troponin T < 0.010 (0.00-0.029) ng/mL Urine Color (Yellow) Urine Turbidity (Clear) Urine pH (5.0-7.0) Ur Specific [place] (1.003-1.030) Urine Protein (Negative) mg/dL Urine Glucose (UA) (Negative) mg/dL Urine Ketones (Negative) mg/dL Urine Blood (Negative) Urine Nitrite (Negative) Urine Bilirubin (Negative) Urine Urobilinogen (<2.0) mg/dL Ur Leukocyte Esterase (Negative) Urine WBC (Auto) (0.0-6.0) /HPF Urine RBC (Auto) (0.0-6.0) /HPF Urine Bacteria (Auto) (Negative) /HPF Urine Mucus /HPF Urine Sperm (TOP LIFT CUTTER) /HPF Urine Opiates Screen Presumptive negative Urine Methadone Screen Presumptive negative Ur Barbiturates Screen Presumptive negative Ur Phencyclidine Scrn Presumptive negative Ur Amphetamines Screen Presumptive negative U Benzodiazepines Scrn Presumptive negative Urine Cocaine Screen Presumptive positive U Marijuana (THC) Screen Presumptive negative Drugs of Abuse Note Disclamer 05/27/18 05/27/18 05/27/18 Range/Units 09:00 09:36 09:36 WBC (4.5-11.0) K/mm3 RBC (3.65-5.03) M/mm3 Hgb (11.8-15.2) gm/dl Hct (35.5-45.6) % MCV (84-94) fl MCH (28-32) pg MCHC (32-34) % RDW (13.2-15.2) % Plt Count (140-440) K/mm3 Lymph % (Auto) (13.4-35.0) % [place] % (Auto) (0.0-7.3) % Eos % (Auto) (0.0-4.3) % Baso % (Auto) (0.0-1.8) % Lymph # (1.2-5.4) K/mm3 [place] # (0.0-0.8) K/mm3 Eos # (0.0-0.4) K/mm3 Baso # (0.0-0.1) K/mm3 Seg Neutrophils % (40.0-70.0) % Seg Neutrophils # (1.8-7.7) K/mm3 D-Dimer (0-234) ng/mlDDU Sodium (137-145) mmol/L Potassium (3.6-5.0) mmol/L Chloride (98-107) mmol/L Carbon Dioxide (22-30) mmol/L Anion Gap mmol/L BUN (9-20) mg/dL Creatinine (0.8-1.5) mg/dL Estimated GFR ml/min BUN/Creatinine Ratio % Glucose (75-100) mg/dL POC Glucose (70-105) Calcium (8.4-10.2) mg/dL Magnesium 2.10 (1.7-2.3) mg/dL Total Creatine Kinase 377 H (55-170) units/L CK-MB (CK-2) 4.2 H (0.0-4.0) ng/mL CK-MB (CK-2) Rel Index 1.1 (0-4) Troponin T < 0.010 (0.00-0.029) ng/mL Urine Color Yellow (Yellow) Urine Turbidity Slightly-cloudy (Clear) Urine pH 5.0 (5.0-7.0) Ur Specific [place] 1.023 (1.003-1.030) Urine Protein <15 mg/dl (Negative) mg/dL Urine Glucose (UA) >=500 (Negative) mg/dL Urine Ketones Neg (Negative) mg/dL Urine Blood Neg (Negative) Urine Nitrite Neg (Negative) Urine Bilirubin Neg (Negative) Urine Urobilinogen < 2.0 (<2.0) mg/dL Ur Leukocyte Esterase Neg (Negative) Urine WBC (Auto) 7.0 H (0.0-6.0) /HPF Urine RBC (Auto) 2.0 (0.0-6.0) /HPF Urine Bacteria (Auto) 2+ (Negative) /HPF Urine Mucus Few /HPF Urine Sperm 1+ (TOP LIFT CUTTER) /HPF Urine Opiates Screen Urine Methadone Screen Ur Barbiturates Screen Ur Phencyclidine Scrn Ur Amphetamines Screen U Benzodiazepines Scrn Urine Cocaine Screen U Marijuana (THC) Screen Drugs of Abuse Note 05/27/18 05/27/18 05/27/18 Range/Units 12:32 12:32 15:54 WBC (4.5-11.0) K/mm3 RBC (3.65-5.03) M/mm3 Hgb (11.8-15.2) gm/dl Hct (35.5-45.6) % MCV (84-94) fl MCH (28-32) pg MCHC (32-34) % RDW (13.2-15.2) % Plt Count (140-440) K/mm3 Lymph % (Auto) (13.4-35.0) % [place] % (Auto) (0.0-7.3) % Eos % (Auto) (0.0-4.3) % Baso % (Auto) (0.0-1.8) % Lymph # (1.2-5.4) K/mm3 [place] # (0.0-0.8) K/mm3 Eos # (0.0-0.4) K/mm3 Baso # (0.0-0.1) K/mm3 Seg Neutrophils % (40.0-70.0) % Seg Neutrophils # (1.8-7.7) K/mm3 D-Dimer < 135.00 (0-234) ng/mlDDU Sodium (137-145) mmol/L Potassium (3.6-5.0) mmol/L Chloride (98-107) mmol/L Carbon Dioxide (22-30) mmol/L Anion Gap mmol/L BUN (9-20) mg/dL Creatinine (0.8-1.5) mg/dL Estimated GFR ml/min BUN/Creatinine Ratio % Glucose (75-100) mg/dL POC Glucose 199 H (70-105) Calcium (8.4-10.2) mg/dL Magnesium (1.7-2.3) mg/dL Total Creatine Kinase (55-170) units/L CK-MB (CK-2) (0.0-4.0) ng/mL CK-MB (CK-2) Rel Index (0-4) Troponin T < 0.010 (0.00-0.029) ng/mL Urine Color (Yellow) Urine Turbidity (Clear) Urine pH (5.0-7.0) Ur Specific [place] (1.003-1.030) Urine Protein (Negative) mg/dL Urine Glucose (UA) (Negative) mg/dL Urine Ketones (Negative) mg/dL Urine Blood (Negative) Urine Nitrite (Negative) Urine Bilirubin (Negative) Urine Urobilinogen (<2.0) mg/dL Ur Leukocyte Esterase (Negative) Urine WBC (Auto) (0.0-6.0) /HPF Urine RBC (Auto) (0.0-6.0) /HPF Urine Bacteria (Auto) (Negative) /HPF Urine Mucus /HPF Urine Sperm (TOP LIFT CUTTER) /HPF Urine Opiates Screen Urine Methadone Screen Ur Barbiturates Screen Ur Phencyclidine Scrn Ur Amphetamines Screen U Benzodiazepines Scrn Urine Cocaine Screen U Marijuana (THC) Screen Drugs of Abuse Note - EKG Data -: EKG Interpreted by Me EKG shows normal: sinus rhythm, axis (qrs 59), QRS complexes (qrsd 83), ST-T waves (no stemi/ t inv) Rate: normal (89) - EKG Data When compared to previous EKG there are: previous EKG unavailable 05/27/18 16:29 repeat ekg without acute changes - Radiology Data Radiology results: report reviewed CT HEAD WITHOUT CONTRAST: HISTORY: Altered mental status, possible fall, head injury. TECHNIQUE: Sequential 2.5mm CT images. COMPARISON: 04/14/18. FINDINGS: Cerebral Parenchyma: Within normal limits. Cerebellum: Within normal limits. Brainstem: Within normal limits. Ventricles: Normal. Sella: Normal. Extra-axial spaces: Normal. Basal Cisterns: Normal. Intracranial Hemorrhage: None. Midline Shift: None. Calvarium: Normal. Chronic right nasal bone fracture is noted. Sinuses: Normal. Mastoid Air Cells: Normal. Visualized Orbits: Normal. IMPRESSION: Cranial CT scan within normal limits. cc: ROYER BALDERRAMA MD FINAL REPORT EXAM: VL VENOUS DUPLEX LE BILAT HISTORY: b/l leg pain TECHNIQUE: Grayscale and color and spectral Doppler ultrasound imaging of the bilateral lower extremities was performed for the purposes of assessing for deep venous thrombosis. PRIORS: None. FINDINGS: No evidence of deep venous thrombosis is seen within the common femoral through the posterior tibial and peroneal veins. Normal compression and color flow is seen throughout the venous system of the bilateral lower extremities. Normal augmentation was seen. IMPRESSION: Negative for bilateral lower extremity deep venous thrombosis. LEFT RIBS, 2 VIEWS: History: pain. Limited exam. Only 2 views of the left ribs could be obtained because the patient was undergoing seizures. Left lower ribs 9-12 are incompletely imaged. There is no obvious left rib deformity or bony lesion. The left lung is well-aerated. IMPRESSION: Limited exam. No left rib deformity is detected. - Medical Decision Making Patient having seizure-like activity which appears to be pseudoseizures is no alteration in mental status and patient is able to talk with episodes. Provided until further investigation with EEG to be performed. CT head unremarkable. Left-sided chest pain is reproducible with palpation and patient thinks he fell. Ribs and completely imaged however, no obvious rib displacement, pneumothorax, or lung abnormality. No signs of hypoxia or respiratory distress. EKG unch anged, 3 negative cardiac enzymes, and atypical chest pain. Patient had a unremarkable stress test in March 2017. Despite reports of previous DVT, bilateral Dopplers negative, d-dimer negative, and recent CT angiogram chest negative. Patient continues to abuse cocaine and has a positive UDS and initially presented with alteration in mental status at the halfway. After Narcan patient became alert and generalized pain also likely secondary to acute drug withdrawal. Critical Care Time: No Critical care attestation.: If time is entered above; I have spent that time in minutes in the direct care of this critically ill patient, excluding procedure time. ED Disposition Clinical Impression: Chest wall pain, Cocaine abuse, Diabetic neuropathy, Episode of shaking Disposition: DC-01 TO HOME OR SELFCARE Is pt being admited?: No Does the pt Need Aspirin: No Condition: Stable Instructions: Chest Pain (ED), Cocaine Abuse (ED), Diabetic Neuropathy (ED), Non-epileptic Seizures (ED) Additional Instructions: Take the medication as prescribed. Take Motrin or Tylenol as needed for pain. Follow up with your doctor or the clinic/doctor provided. Return if symptoms worsen as indicated by your discharge instructions Prescriptions: levETIRAcetam [Keppra TAB] 500 mg PO BID #60 tablet Referrals: SARI HERNANDEZ MD [Staff Physician] - 3-5 Days (neurology) [facility] [Primary Care Provider] - 3-5 Days ARTI REED MD [Staff Physician] - 3-5 Days Time of Disposition: 16:30
[2018-05-27] MEDS ORDERED: KEPPRA 1,000 MG/NS 0.75% 100ML 1,000 MG/100 ML BAG IV ONE (15:07)
== END 2018-05-27 17:50 | disposition home or self-care (01) ==
LOC: ED 05:36
DX: E11.40 Type 2 diabetes mellitus with diabetic neuropathy, unspecified (principal); R07.89 Other chest pain; R25.1 Tremor, unspecified; F14.10 Cocaine abuse, uncomplicated; I11.0 Hypertensive heart disease with heart failure; I50.9 Heart failure, unspecified; J44.9 Chronic obstructive pulmonary disease, unspecified; Z86.73 Personal history of transient ischemic attack (TIA), and cerebral infarction without residual deficits; Z95.0 Presence of cardiac pacemaker; Z90.89 Acquired absence of other organs; Z79.4 Long term (current) use of insulin
CPT/HCPCS: 36415; 70450; 71101; 80048; 80307; 81001; 82550; 82553; 82962; 83735; 84484; 85025; 85379; 93005; 93010; 93970; 96374; 96375; 99285; J1885; J1953

== ENCOUNTER 2018-10-30 18:01 | Inpatient (IN) | payer SELFPAY ==
[2018-10-30] MEDS ORDERED: NACL 0.9% 1000 ML 1,000 ML IV ONE ×2 (20:14→22:12)
[2018-10-30 20:36] LABS: Basophils % (Auto) 0.5 % (0.0-1.8); Eosinophils % (Auto) 0.8 % (0.0-4.3); Hematocrit 42.9 % (35.5-45.6); Hemoglobin 14.3 gm/dl (11.8-15.2); Lymphocytes # (Auto) 1.3 K/mm3 (1.2-5.4); Mean Corpuscular HGB Conc 33 % (32-34); Mean Corpuscular Volume 87 fl (84-94); Monocytes # (Auto) 0.5 K/mm3 (0.0-0.8); Monocytes % (Auto) 9.8 % (0.0-7.3); Platelet Count 340 K/mm3 (140-440); Red Blood Count 4.92 M/mm3 (3.65-5.03); Red Cell Distribution Width 13.9 % (13.2-15.2)
[2018-10-30 21:01] LABS: Alanine Aminotransferase 13 units/L (7-56); Albumin 4.4 g/dL (3.9-5); BUN/Creatinine Ratio 20; Blood Urea Nitrogen 24 mg/dL (9-20); Calcium 9.5 mg/dL (8.4-10.2); Hemolysis Index 7
[2018-10-30 21:08] LABS: Free T4 (Free Thyroxine) 1.12 ng/dL (0.76-1.46)
--- NOTE | 2018-10-30 21:31 | Emergency Department Report ---
ED Dizziness HPI - General Chief Complaint: Dizziness Stated Complaint: DIZZINESS Time Seen by Provider: 10/30/18 20:10 Source: patient, EMS Mode of arrival: Stretcher Limitations: No Limitations - History of Present Illness Initial Comments: 53-year-old male with history of DM, HTN, PE, drug abuse presents to ED with dizziness and generalized weakness for 3-4 days. Patient reports chest pain, vomiting, headache. Upon EMS arrival, pt was hypotensive w/ BP of 80/48. Pt was given 500cc bolus by EMS. Pt states he is currently taking BP meds, unsure of the name. States he has been taking it regularly. Denies taking too much of his BP meds. Pt denies drug use. MD Complaint: lightheadedness, near syncope -: days(s) (4) Timing: constant Description: lightheadedness History of Same: No History of Trauma: No Severity: moderate Improves With: remaining still Worsens With: movement Associated Symptoms: chest pain, shortness of breath. denies: fever/chills - Related Data Previous Rx's Medication Instructions Recorded Last Taken Type Cyclobenzaprine [Flexeril 10 MG 10 mg PO TID PRN #30 tablet 02/07/18 10/29/18 Rx TAB] Ondansetron [Zofran ODT TAB] 4 mg PO Q8HR PRN #20 tab.rapdis 04/01/18 10/29/18 Rx Promethazine [Phenergan] 25 mg PO Q6HR PRN #20 tab 04/01/18 10/29/18 Rx Insulin Aspart Prot/Aspart(Nf) 8 units SQ BID #1 vial 10/31/18 Unknown Rx [NovoLOG Mix 70/30 VIAL] levETIRAcetam [Keppra TAB] 500 mg PO BID #60 tablet 10/31/18 Unknown Rx Allergies Allergy/AdvReac Type Severity Reaction Status Date / Time No Known Allergies Allergy Verified 01/24/18 08:29 ED Review of Systems ROS: Stated complaint: DIZZINESS Other details as noted in HPI Comment: All other systems reviewed and negative Constitutional: weakness Respiratory: shortness of breath Cardiovascular: chest pain Gastrointestinal: abdominal pain, nausea, vomiting Neurological: headache ED Past Medical Hx - Past Medical History Previous Medical History?: Yes Hx Hypertension: Yes Hx CVA: Yes Hx Heart Attack/AMI: Yes (Cardiomyopathy) Hx Congestive Heart Failure: Yes (nonischemic cardiomyopathy) Hx Diabetes: Yes Hx Renal Disease: Yes Hx Asthma: No Hx COPD: Yes Hx HIV: No Additional medical history: BPH - indwelling catherter - Surgical History Hx Pacemaker: Yes Hx Internal Defibrillator: Yes Hx Appendectomy: Yes Additional Surgical History: HERNIA SURGERY, Pacemaker - Social History Smoking Status: Never Smoker - Medications Home Medications: Home Medications Medication Instructions Recorded Confirmed Last Taken Type Cyclobenzaprine [Flexeril 10 MG 10 mg PO TID PRN #30 tablet 02/07/18 10/31/18 10/29/18 Rx TAB] Ondansetron [Zofran ODT TAB] 4 mg PO Q8HR PRN #20 tab.rapdis 04/01/18 10/31/18 10/29/18 Rx Promethazine [Phenergan] 25 mg PO Q6HR PRN #20 tab 04/01/18 10/31/18 10/29/18 Rx Insulin Aspart Prot/Aspart(Nf) 8 units SQ BID #1 vial 10/31/18 Unknown Rx [NovoLOG Mix 70/30 VIAL] levETIRAcetam [Keppra TAB] 500 mg PO BID #60 tablet 10/31/18 Unknown Rx ED Physical Exam - General Limitations: No Limitations General appearance: alert, in no apparent distress - Head Head exam: Present: atraumatic, normocephalic - Eye Eye exam: Present: normal appearance, PERRL, EOMI - ENT ENT exam: Present: mucous membranes moist - Neck Neck exam: Present: normal inspection - Respiratory Respiratory exam: Present: normal lung sounds bilaterally. Absent: respiratory distress - Cardiovascular Cardiovascular Exam: Present: regular rate, normal rhythm - GI/Abdominal GI/Abdominal exam: Present: soft, tenderness (LLQ tenderness). Absent: distended - Extremities Exam Extremities exam: Present: normal inspection, full ROM - Neurological Exam Neurological exam: Present: alert, oriented X3, CN II-XII intact. Absent: motor sensory deficit - Psychiatric Psychiatric exam: Present: normal affect, normal mood - Skin Skin exam: Present: warm, dry, intact, normal color. Absent: rash ED Course Vital Signs 10/30/18 10/30/18 10/30/18 19:02 19:07 19:16 Temperature 98.3 F Pulse Rate 86 88 90 Respiratory 13 20 15 Rate Blood Pressure 99/63 99/63 O2 Sat by Pulse 97 95 Oximetry 10/30/18 10/30/18 10/30/18 19:30 19:37 19:38 Temperature Pulse Rate 90 88 Respiratory 15 20 Rate Blood Pressure 89/59 O2 Sat by Pulse 96 Oximetry 10/30/18 10/30/18 10/30/18 20:07 20:30 21:00 Temperature Pulse Rate 84 82 Respiratory 24 18 Rate Blood Pressure 120/72 120/72 104/60 O2 Sat by Pulse 97 97 Oximetry 10/30/18 10/30/18 10/30/18 21:30 22:11 22:30 Temperature Pulse Rate 87 77 83 Respiratory 15 10 L 13 Rate Blood Pressure 106/69 106/69 100/56 O2 Sat by Pulse 98 99 95 Oximetry 10/30/18 10/30/18 10/30/18 22:34 23:00 23:04 Temperature Pulse Rate 82 83 82 Respiratory 12 12 14 Rate Blood Pressure 98/57 98/51 98/51 O2 Sat by Pulse 96 99 99 Oximetry 10/30/18 10/31/18 10/31/18 23:30 00:00 00:30 Temperature Pulse Rate 84 83 80 Respiratory 13 12 11 L Rate Blood Pressure 101/64 94/59 104/64 O2 Sat by Pulse 95 98 98 Oximetry 10/31/18 01:05 Temperature Pulse Rate Respiratory Rate Blood Pressure O2 Sat by Pulse 98 Oximetry ED Medical Decision Making - Lab Data Result diagrams: 10/30/18 20:19 10/30/18 20:19 - EKG Data -: EKG Interpreted by Sd EKG shows normal: sinus rhythm, axis, intervals, QRS complexes, ST-T waves Rate: normal - EKG Data Interpretation: no acute changes - Radiology Data Radiology results: report reviewed, image reviewed - Medical Decision Making 53-year-old male presents with generalized weakness for 3-4 days. Patient found to be hypotensive. Pt fluid resuscitated with 2L bolus of NS here in ED with improvement of blood pressure, currently 120/72. CT Head, Abd/ Pelvis, and CTA Chest all normal without any acute findings. EKG unremarkable, troponin negative. Pt is afebrile, WBCs and lactic acid normal, he is not septic. Possibly due to BP medication as pt reports he has been compliant with it, taking it daily, although he is unsure of the name of the medication. Will admit to hospitalist for further management. - Differential Diagnosis dehydration, medication effect, PE, infection Critical Care Time: Yes Critical care time in (mins) excluding proc time.: 35 Critical care attestation.: If time is entered above; I have spent that time in minutes in the direct care of this critically ill patient, excluding procedure time. Critical Care Time: 35 minutes ED Disposition Clinical Impression: Generalized weakness, Hypotension, Cocaine abuse Disposition: OP ADMIT IP TO THIS HOSP Is pt being admited?: Yes Condition: Stable Time of Disposition: 23:00
--- NOTE | 2018-10-30 21:49 | XRay Report ---
CHEST 1 VIEW INDICATION: weakness. COMPARISON: 01/20/2018 FINDINGS: SUPPORT DEVICES: Pacing device is present overlying left hemithorax electrode tips right atrium and r ight ventricle HEART / MEDIASTINUM: No significant abnormality. LUNGS / PLEURA: No significant pulmonary or pleural abnormality. No pneumothorax. ADDITIONAL FINDINGS: IMPRESSION: 1. No acute findings. Signer Name: James Gabriel MD Signed: 10/30/2018 9:44 PM Workstation Name: [id number]
--- NOTE | 2018-10-30 22:33 | Cat Scan Report ---
CTA CHEST WITH IV CONTRAST INDICATION / CLINICAL INFORMATION: hypotensive, chest pain, hx of PE. TECHNIQUE: Axial CT images were obtained through the chest after injection of IV contrast. 3 plane MIP and/or 3D reconstructions were produced. All CT scans at this location are performed using CT dose reduction f or ALARA by means of automated exposure control. COMPARISON: None available. FINDINGS: PULMONARY ARTERIES: No pulmonary emboli. THORACIC AORTA: No significant abnormality. HEART: No significant abnormality. CORONARY ARTERIES: No significant calcification. PLEURA: No pleural effusion. No pneumothorax. LYMPH NODES: No significant adenopathy. LUNGS: No acute air space or interstitial disease. ADDITIONAL FINDINGS: None. UPPER ABDOMEN: No acute findings. SKELETAL STRUCTURES: No significant osseous abnormality. IMPRESSION: 1. No CT evidence for pulmonary embolism. 2. No acute findings. Signer Name: James Gabriel MD Signed: 10/30/2018 10:28 PM Workstation Name: [id number]
--- NOTE | 2018-10-30 22:36 | Cat Scan Report ---
CT ABDOMEN AND PELVIS WITH CONTRAST INDICATION / CLINICAL INFORMATION: MAIN: RT SIDED ABDOMINAL PAIN/ lower abd pain. TECHNIQUE: Axial CT images were obtained through the abdomen and pelvis after IV contrast. All CT scans at this location are performed using CT dose reduction for ALARA by means of automated exposure control. COMPARISON: None available. FINDINGS: LIVER: No significant abnormality. GALLBLADDER: No significant abnormality. BILE DUCTS: No significant abnormality. PANCREAS: No significant abnormality. SPLEEN: No significant abnormality. ADRENALS: No significant abnormality. RIGHT KIDNEY and URETER: No significant abnormality. LEFT KIDNEY and URETER: No significant abnormality. STOMACH and SMALL BOWEL: No significant abnormality. COLON: No significant abnormality. APPENDIX: Is not identified PERITONEUM: No free fluid. No free air. No fluid collection. LYMPH NODES: No significant adenopathy. AORTA and ARTERIES: No significant abnormality. IVC and VEINS: No significant abnormality. URINARY BLADDER: Bladder distention is present REPRODUCTIVE ORGANS: No significant abnormality. ADDITIONAL FINDINGS: None. SKELETAL SYSTEM: No significant abnormality. IMPRESSION: 1. No significant abnormality. Signer Name: James Gabriel MD Signed: 10/30/2018 10:32 PM Workstation Name: [id number]
--- NOTE | 2018-10-30 22:39 | Cat Scan Report ---
CT head/brain wo con INDICATION / CLINICAL INFORMATION: 53 years Male; dizziness. 53-year-old male TECHNIQUE: Routine CT head without contrast. All CT scans at this location are performed using CT dos e reduction for ALARA by means of automated exposure control. COMPARISON: None. FINDINGS: BRAIN / INTRACRANIAL CONTENTS: No acute hemorrhage, mass effect, midline shift, hydrocephalus, or acu te, large territorial infarct. No chronic infarct or focal atrophy. Normal brain volume and ventricul ar/sulcal size for age. No significant white matter abnormality. CRANIOCERVICAL JUNCTION: No significant abnormality. ORBITS: No significant abnormality of visualized orbits. SINUSES / MASTOIDS: Desiccated secretions seen in the left sphenoid sinus. ADDITIONAL FINDINGS: None. IMPRESSION: 1. No focal mass, hemorrhage, hydrocephalus, or acute, large territorial infarct. Signer Name: Aurelio Vicente MD, III Signed: 10/30/2018 10:35 PM Workstation Name: [id number]
[2018-10-30] MEDS ORDERED: SODIUM CHLORIDE FLUSH SYRINGE 10 ML IV PRN (23:39)
[2018-10-30] MEDS ORDERED: ZOFRAN IV PRN (23:39)
[2018-10-30] MEDS ORDERED: PERCOCET 5/325 PO PRN (23:39)
[2018-10-30] MEDS ORDERED: TYLENOL PO PRN (23:39)
[2018-10-30 23:43] LABS: Bacteria,Urine 2+ /HPF (Negative); Bilirubin,Urine NEG (Negative); Blood,Urine NEG (Negative); Color,Urine Yellow (Yellow); Mucus,Urine 3+ /HPF; Protein,Urine <15 mg/dL mg/dL (Negative); Urobilinogen,Urine < 2.0 mg/dL (<2.0)
[2018-10-30] MEDS ORDERED: NACL 0.9% 1000 ML 1,000 ML IV SCH (23:45)
--- NOTE | 2018-10-30 23:46 | History and Physical Report ---
History of Present Illness Date of examination: 10/30/18 History of present illness: 53 year-old man with a history of hypertension, diabetes, CHF, coronary artery disease, COPD to the emergency room with complaints of feeling weak and dizzy for 4 days. Review of systems Constitutional: no weight loss Ears, eyes, nose, mouth and throat: no nasal congestion, no nasal discharge, no sinus pressure, no vision change, no red eye. Neck: No neck pain or rigidity. Cardiovascular: no palpitations Respiratory: no cough Gastrointestinal: no hematochezia, abdominal pain Genitourinary : no frequency , no hematuria Musculoskeletal: no joint swelling or muscle ache Integumentary: no rash, no pruritis Neurological: no parathesias, focal weakness Endocrine: no cold or heat intolerance, no polyuria or polydipsia Hematologic/Lymphatic: no easy bruising, no easy bleeding, no gland swelling Allergic/Immunologic: no urticaria, no angioedema. PAST MEDICAL HISTORY: hypertension, diabetes, CHF, coronary artery disease, COPD PAST SURGICAL HISTORY: AICD, pacemaker, hernia repair , appendectomy SOCIAL HISTORY: +tobacco, +maijuana, +alcohol FAMILY HISTORY: Hypertension Medications and Allergies Allergies Allergy/AdvReac Type Severity Reaction Status Date / Time No Known Allergies Allergy Verified 01/24/18 08:29 Home Medications Medication Instructions Recorded Confirmed Last Taken Type HYDROcodone/APAP 5-325 [[place] 1 - 2 each PO Q6HR PRN #14 tablet 01/30/18 10/31/18 10/29/18 Rx 5-325 mg TAB] Cyclobenzaprine [Flexeril 10 MG 10 mg PO TID PRN #30 tablet 02/07/18 10/31/18 10/29/18 Rx TAB] Naproxen [Naprosyn] 500 mg PO BID PRN #30 tablet 02/07/18 10/31/18 Unknown Rx Dicyclomine [Bentyl] 20 mg PO QID PRN #20 tablet 04/01/18 10/31/18 10/29/18 Rx Ondansetron [Zofran ODT TAB] 4 mg PO Q8HR PRN #20 tab.rapdis 04/01/18 10/31/18 10/29/18 Rx Promethazine [Phenergan] 25 mg PO Q6HR PRN #20 tab 04/01/18 10/31/18 10/29/18 Rx Insulin Aspart Prot/Aspart(Nf) 4 units SQ BID #1 vial 04/17/18 10/31/18 10/29/18 Rx [NovoLOG Mix 70/30 VIAL] levETIRAcetam [Keppra TAB] 500 mg PO BID #60 tablet 05/27/18 10/31/18 10/27/18 Rx Active Meds: Active Medications Acetaminophen (Tylenol) 650 mg PO Q4H PRN PRN Reason: Pain MILD(1-3)/Fever >100.5/CHAVIRA Enoxaparin Sodium (Lovenox) 40 mg SUB-Q QDAY ROSALINDA Sodium Chloride (Nacl 0.9% 1000 Ml) 1,000 mls @ 75 mls/hr IV DIRECT ROSALINDA Ondansetron HCl (Zofran) 4 mg IV Q8H PRN PRN Reason: Nausea And Vomiting Oxycodone/Acetaminophen (Percocet 5/325) 1 tab PO Q6H PRN PRN Reason: Pain, Moderate (4-6) Sodium Chloride (Sodium Chloride Flush Syringe 10 Ml) 10 ml IV BID ROSALINDA Sodium Chloride (Sodium Chloride Flush Syringe 10 Ml) 10 ml IV PRN PRN PRN Reason: LINE FLUSH Exam - Physical Exam Narrative exam: General Apperance: The patient sitting in bed no acute distress HEENT: Normocephalic, atraumatic. Pupils equally round and reactive to light, extraocular movement intact, and no sclericterus or JVD or thyromegaly or nodule. Neck supple, no carotid bruit, mucous membranes moist, no exudate or erythema Heart: S1-S2, regular is rhythm Lungs: Clear to auscultation bilaterally, breathing comfortable Abdomen: Positive bowel sounds, soft, nontender, nondistended, no organomegaly Extremities: No edema cyanosis clubbing Skin: no rash, nodule, warm and dry Neuro: Cranial nerves II through XII intact, speech is fluent, motor intact , sensation intact - Constitutional Vitals: Temp Pulse Resp BP Pulse Ox 98.3 F 83 12 98/51 99 10/30/18 19:07 10/30/18 23:00 10/30/18 23:00 10/30/18 23:00 10/30/18 23:00 Results - Labs CBC & Chem 7: 10/30/18 20:19 10/30/18 20:19 Labs: Abnormal lab results 10/30/18 10/30/18 10/30/18 Range/Units 19:26 20:19 20:19 Mcmullen % (Auto) 9.8 H (0.0-7.3) % Sodium 131 L (137-145) mmol/L Chloride 92.7 L (98-107) mmol/L BUN 24 H (9-20) mg/dL Glucose 296 H (75-100) mg/dL POC Glucose 300 H (70-105) - Imaging and Cardiology CT scan - abdomen: report reviewed CT scan - chest: report reviewed CT Scan - head: report reviewed CT scan - pelvis: report reviewed Assessment and Plan Assessment Hypotension most likely due to antihypertensives diabetes CHF, stable coronary artery disease COPD Plan start gentle IV fluid, check cardiac enzymes Hold antihypertensives Dvt prophalaxis
[2018-10-30 23:49] LABS: Amphetamine Screen,Urine PRESUMPTIVE NEGATIVE; Benzodiazepines Screen,Urine PRESUMPTIVE NEGATIVE; Methadone Screen,Urine PRESUMPTIVE NEGATIVE; Opiate Screen,Urine PRESUMPTIVE NEGATIVE
[2018-10-31 00:18] LABS: Cannabinoid Screen,Urine PRESUMPTIVE POSITIVE; Cocaine Screen,Urine PRESUMPTIVE POSITIVE
[2018-10-31 00:44] LABS: Creatine Kinase MB 2.7 ng/mL (0.0-4.0)
[2018-10-31] MEDS ORDERED: KEPPRA PO SCH (10:00)
[2018-10-31] MEDS ORDERED: LOVENOX SUB-Q SCH (10:00)
[2018-10-31] MEDS ORDERED: SODIUM CHLORIDE FLUSH SYRINGE 10 ML IV SCH (10:00)
[2018-10-31] MEDS ORDERED: HumuLIN R SUB-Q SCH (11:30)
[2018-10-31 12:42] VITALS: BP 105/65
--- NOTE | 2018-10-31 14:39 | Discharge Summary ---
Providers - Providers Date of Admission: 10/30/18 23:39 Date of discharge: 10/31/18 Attending physician: SABRINA TA [facility] Condition: Stable Pertinent studies: CT heaD Ct abdomen/pelvis CXR CTA chest Hospital course: Discharge diagnosis: Hypotension most likely due to antihypertensives Diabetes CHF, stable Coronary artery disease COPD Substance abuse - UDs was positive for cocaine and marijuana Disposition: DC-01 TO HOME OR SELFCARE Time spent for discharge: 34 minutes Core Measure Documentation - Palliative Care Palliative Care/ Comfort Measures: Not Applicable Exam - Constitutional Vitals: Temp Pulse Resp BP Pulse Ox 97.9 F 78 20 105/65 97 10/31/18 11:58 10/31/18 11:58 10/31/18 11:58 10/31/18 11:58 10/31/18 11:58 General appearance: Present: no acute distress, well-nourished - EENT Eyes: Present: PERRL ENT: hearing intact, clear oral mucosa - Neck Neck: Present: supple, normal ROM - Respiratory Respiratory effort: normal Respiratory: bilateral: CTA - Cardiovascular Heart Sounds: Present: S1 & S2. Absent: rub, click - Extremities Extremities: pulses symmetrical, No edema Peripheral Pulses: within normal limits - Abdominal General gastrointestinal: Present: soft, non-tender, non-distended, normal bowel sounds - Integumentary Integumentary: Present: clear, warm, dry - Musculoskeletal Musculoskeletal: gait normal, strength equal bilaterally - Psychiatric Psychiatric: appropriate mood/affect, intact judgment & insight - Neurologic Neurologic: CNII-XII intact, moves all extremities Plan Activity: advance as tolerated Weight Bearing Status: Weight Bear as Tolerated Diet: diabetic Follow up with: GORAN DE LA VEGA MD [Primary Care Provider] - 3-5 Days Prescriptions: levETIRAcetam [Keppra TAB] 500 mg PO BID #60 tablet Insulin Aspart Prot/Aspart(Nf) [NovoLOG Mix 70/30 VIAL] 8 units SQ BID #1 vial
== END 2018-10-31 15:30 | disposition home or self-care (01) | DRG 312 ==
LOC: ED 18:01 → 3A 23:39
PROVIDERS: ADMIT Internal Medicine; ATTEND Internal Medicine
DX: I95.2 Hypotension due to drugs (principal); I42.9 Cardiomyopathy, unspecified; I25.10 Atherosclerotic heart disease of native coronary artery without angina pectoris; E11.69 Type 2 diabetes mellitus with other specified complication; I10 Essential (primary) hypertension; Z86.711 Personal history of pulmonary embolism; Z86.73 Personal history of transient ischemic attack (TIA), and cerebral infarction without residual deficits; J44.9 Chronic obstructive pulmonary disease, unspecified; Z95.0 Presence of cardiac pacemaker; Z90.49 Acquired absence of other specified parts of digestive tract; Z79.4 Long term (current) use of insulin; F14.10 Cocaine abuse, uncomplicated; T46.5X5A Adverse effect of other antihypertensive drugs, initial encounter; Y92.89 Other specified places as the place of occurrence of the external cause
CPT/HCPCS: 36415; 70450; 71045; 71275; 74177; 80053; 80307; 80320; 81001; 82140; 82550; 82553; 82805; 82962; 84439; 84443; 84484; 85025; 93005; 93010; G0378; G0480; J1815; J7030; Q9967

== ENCOUNTER 2019-06-30 23:21 | Inpatient (IN) | payer OTHER ==
[2019-06-30] MEDS ORDERED: ASPIRIN 325 MG TAB PO ONE (23:35)
--- NOTE | 2019-07-01 00:16 | XRay Report ---
CHEST 1 VIEW 07/01/2019 12:07 AM INDICATION / CLINICAL INFORMATION: Chest Pain. COMPARISON: 10/30/18 FINDINGS: SUPPORT DEVICES: None. HEART / MEDIASTINUM: Heart is normal size. Left-sided dual-lead cardiac pacemaker is unchanged. LUNGS / PLEURA: No significant pulmonary or pleural abnormality. No pneumothorax. ADDITIONAL FINDINGS: No significant additional findings. IMPRESSION: 1. No acute findings. No change. Signer Name: Kelsi Farley MD Signed: 07/01/2019 12:11 AM Workstation Name: [id number]
[2019-07-01 00:23] LABS: Hematocrit 38.4 % (35.5-45.6); Hemoglobin 12.6 gm/dl (11.8-15.2); Mean Corpuscular HGB Conc 33 % (32-34); Mean Corpuscular Volume 88 fl (84-94); Platelet Count 229 K/mm3 (140-440); Red Blood Count 4.36 M/mm3 (3.65-5.03); Red Cell Distribution Width 12.6 % (13.2-15.2)
[2019-07-01 00:37] LABS: BUN/Creatinine Ratio 11; Blood Urea Nitrogen 14 mg/dL (9-20); Calcium 8.6 mg/dL (8.4-10.2); Hemolysis Index 5
[2019-07-01] MEDS ORDERED: SODIUM CHLORIDE 0.9% 1000 ML 2,000 ML ONE (00:52)
--- NOTE | 2019-07-01 00:53 | Emergency Department Report ---
ED Chest Pain HPI - General Chief Complaint: Chest Pain Stated Complaint: CP,BODY ACHES Time Seen by Provider: 07/01/19 00:20 Source: patient Mode of arrival: Ambulatory Limitations: No Limitations - History of Present Illness Initial Comments: Patient is a 54-year-old male that presents emergency room with complaints of chest pain and shortness of breath. Patient states his chest pain shortness of breath been going on for 2 to 3 days. Patient states that he has a past medical history of diabetes, CHF, [place], 2 cardiac stents, hyperlipidemia, hypertension, and pacemaker defibrillator. Patient states that his symptoms are worsening. Patient states he is having difficulty shortness of breath. Patient states his shortness of breath and chest pain are better with rest and worse with exertion. Patient states that he is also having pain around the pacemaker site. Patient states that his chest pain is substernal and nonradiating. Patient also complains of fatigue. Patient denies recent travel. Patient denies recent international travel. Patient denies exposure to the novel coronavirus. Patient denies sick contacts. Patient denies fever and chills. Patient denies cough. Patient denies diarrhea. Patient denies coming in contact with anybody with symptoms of the novel coronavirus. MD Complaint: chest pain -: Sudden Pain Location: substernal, left chest Severity: severe Severity scale (0 -10): 10 Quality: sharp Consistency: constant Improves With: rest Worsens With: exertion re: dyspnea, sense of impending doom. denies: nausea, vomting, diaphoresis Other Symptoms: denies: cough, fever, syncope, rash, acid taste in mouth, leg swelling, palpitations, burping Treatments Prior to Arrival: none Aspirin use within the Past 7 Days: (1) Yes - Related Data On Oral Contraceptives: No Previous Rx's Medication Instructions Recorded Last Taken Type Cyclobenzaprine [Flexeril 10 MG 10 mg PO TID PRN #30 tablet 02/07/18 10/29/18 Rx TAB] Ondansetron [Zofran ODT TAB] 4 mg PO Q8HR PRN #20 tab.rapdis 04/01/18 10/29/18 Rx Promethazine [Phenergan] 25 mg PO Q6HR PRN #20 tab 04/01/18 10/29/18 Rx Insulin Aspart Prot/Aspart(Nf) 8 units SQ BID #1 vial 10/31/18 Unknown Rx [NovoLOG Mix 70/30 VIAL] levETIRAcetam [Keppra TAB] 500 mg PO BID #60 tablet 10/31/18 Unknown Rx Allergies Allergy/AdvReac Type Severity Reaction Status Date / Time No Known Allergies Allergy Verified 01/24/18 08:29 Heart Score - HEART Score History: Moderately suspicious EKG: Non-specific Age: 45-65 Risk factors: > 3 risk factors or hx of atherosclerotic disease Troponin: < normal limit HEART Score: 5 ED Review of Systems ROS: Stated complaint: CP,BODY ACHES Other details as noted in HPI Constitutional: malaise. denies: chills, fever Eyes: denies: eye pain, eye discharge, vision change ENT: denies: ear pain, throat pain Respiratory: shortness of breath. denies: cough, wheezing Cardiovascular: chest pain, dyspnea on exertion. denies: palpitations Endocrine: no symptoms reported Gastrointestinal: denies: abdominal pain, nausea, diarrhea Genitourinary: denies: urgency, dysuria Musculoskeletal: denies: back pain, joint swelling, arthralgia Skin: denies: rash, lesions Neurological: denies: headache, weakness, paresthesias Psychiatric: denies: anxiety, depression Hematological/Lymphatic: denies: easy bleeding, easy bruising ED Past Medical Hx - Past Medical History Previous Medical History?: Yes Hx Hypertension: Yes Hx CVA: Yes Hx Heart Attack/AMI: Yes (Cardiomyopathy) Hx Congestive Heart Failure: Yes (nonischemic cardiomyopathy) Hx Diabetes: Yes Hx Renal Disease: Yes Hx Asthma: No Hx COPD: Yes Hx HIV: No Additional medical history: BPH - indwelling catherter - Surgical History Past Surgical History?: Yes Hx Pacemaker: Yes Hx Internal Defibrillator: Yes Hx Appendectomy: Yes Additional Surgical History: HERNIA SURGERY, Pacemaker - Family History Family history: no significant - Social History Smoking Status: Former Smoker Substance Use Type: Alcohol - Medications Home Medications: Home Medications Medication Instructions Recorded Confirmed Last Taken Type Cyclobenzaprine [Flexeril 10 MG 10 mg PO TID PRN #30 tablet 02/07/18 10/31/18 10/29/18 Rx TAB] Ondansetron [Zofran ODT TAB] 4 mg PO Q8HR PRN #20 tab.rapdis 04/01/18 10/31/18 10/29/18 Rx Promethazine [Phenergan] 25 mg PO Q6HR PRN #20 tab 04/01/18 10/31/18 10/29/18 Rx Insulin Aspart Prot/Aspart(Nf) 8 units SQ BID #1 vial 10/31/18 Unknown Rx [NovoLOG Mix 70/30 VIAL] levETIRAcetam [Keppra TAB] 500 mg PO BID #60 tablet 10/31/18 Unknown Rx ED Physical Exam - General Limitations: No Limitations General appearance: alert, in no apparent distress - Head Head exam: Present: atraumatic, normocephalic - Eye Eye exam: Present: normal appearance - ENT ENT exam: Present: mucous membranes moist - Neck Neck exam: Present: normal inspection - Respiratory Respiratory exam: Present: normal lung sounds bilaterally. Absent: respiratory distress - Cardiovascular Cardiovascular Exam: Present: regular rate, normal rhythm. Absent: systolic murmur, diastolic murmur, rubs, gallop - GI/Abdominal GI/Abdominal exam: Present: soft, normal bowel sounds - Rectal Rectal exam: Present: deferred - Extremities Exam Extremities exam: Present: normal inspection - Back Exam Back exam: Present: normal inspection - Neurological Exam Neurological exam: Present: alert, oriented X3 - Psychiatric Psychiatric exam: Present: normal affect, normal mood - Skin Skin exam: Present: warm, dry, intact, normal color. Absent: rash ED Course Vital Signs 06/30/19 07/01/19 07/01/19 23:31 00:20 00:30 Temperature 98.5 F Pulse Rate 118 H 102 H 104 H Respiratory 18 10 L 18 Rate Blood Pressure 104/66 78/34 O2 Sat by Pulse 97 92 Oximetry 07/01/19 07/01/19 07/01/19 00:46 01:00 01:15 Temperature Pulse Rate 97 H 88 117 H Respiratory 16 17 27 H Rate Blood Pressure 80/33 79/34 171/77 O2 Sat by Pulse 91 98 99 Oximetry 07/01/19 07/01/19 07/01/19 01:30 01:46 02:00 Temperature Pulse Rate 95 H 93 H 87 Respiratory 14 15 18 Rate Blood Pressure 152/74 96/45 107/56 O2 Sat by Pulse 98 98 97 Oximetry 07/01/19 07/01/19 07/01/19 02:15 02:30 02:46 Temperature Pulse Rate 90 90 102 H Respiratory 12 16 13 Rate Blood Pressure 106/57 114/67 117/49 O2 Sat by Pulse 98 99 97 Oximetry 07/01/19 07/01/19 07/01/19 03:00 03:15 03:40 Temperature Pulse Rate 94 H 101 H 93 H Respiratory 13 18 14 Rate Blood Pressure 106/54 93/44 O2 Sat by Pulse 99 99 98 Oximetry 07/01/19 07/01/19 07/01/19 03:46 04:00 04:15 Temperature Pulse Rate 119 H 100 H 99 H Respiratory 18 18 13 Rate Blood Pressure 112/70 125/61 108/69 O2 Sat by Pulse 100 98 99 Oximetry 07/01/19 07/01/19 07/01/19 04:30 04:45 05:00 Temperature Pulse Rate 117 H 113 H 130 H Respiratory 25 H 17 30 H Rate Blood Pressure 106/54 57/26 72/32 O2 Sat by Pulse 97 92 93 Oximetry 07/01/19 05:15 Temperature Pulse Rate 147 H Respiratory 26 H Rate Blood Pressure 102/38 O2 Sat by Pulse 98 Oximetry - Reevaluation(s) Reevaluation #1: Initial evaluation done. Patient found to be hypoxic and hypotensive. Patient will receive fluids. Patient placed on oxygen. 07/01/19 00:20 Reevaluation #2: Patient's chest x-ray is negative for CHF changes. Patient's blood pressure is improving. Patient has had 100 cc of normal saline and his blood pressure is improved. We will continue to monitor blood pressure. Patient will receive a total of 500 cc of fluid and we will reassess. If the patient blood pressure still low we will place a central line and place the patient on dobutamine. Dobutamine drip was at bedside. 07/01/19 00:59 Reevaluation #3: Blood pressure still with a map less than 65. Current map is 53. Patient placed on dobutamine. Patient will have a central line placed. Patient's blood pressure improved with dobutamine. Patient is already had 500 mils of normal saline bolus. Patient signed consent. Nurse instructed to titrate dobutamine to maintain map above 70. 07/01/19 01:25 Reevaluation #4: Patient central line placed. No complications noted. Patient will have a chest x-ray prior to use. See procedure note. Patient's blood pressure is improved on dobutamine. Patient's chest pain has decreased. 07/01/19 02:08 Reevaluation #5: Patient's blood pressure is better. Patient will go to the. Patient's central line is cleared to use. Chest x-ray shows good placement. Patient states his chest pain is better. 07/01/19 03:15 Patient became acutely short of breath and complaining of increased chest pain. Patient's blood pressure extremely low even on dobutamine drip. Patient given fluids. Dobutamine drip stopped and changed to Levophed. Patient responded well. Patient's blood pressure stabilized and patient's chest pain or shortness of breath resolved. Patient's dobutamine drip DC'd. Hospitalist made aware of changes. EKG done it shows sinus tachycardia. 07/01/19 05:48 - Central Line Placement Right IJ Consent Obtained: verbal consent, written consent Time Out Performed: Yes Patient Placed on Monitor/Pulse Ox: Yes MD Prep: mask, gown, gloves Central Line Prep: Chlorhexidine scrub, sterile drapes applied Local Anesthesia Used: Lidocaine 1% Ultrasound Used for Placement: Yes Central Line Lumen Inserted: triple Bloods Obtained for Lab: No Central Line Position: good blood return, all ports aspirated, flus, sutured in place with 2-0 Dressing Applied: Tegaderm Post Procedure X-Ray: tip of catheter in good p Patient Tolerated Procedure: well, no complications Complications: none ALINA score - Alina Score Age > 65: (0) No Aspirin use within the Past 7 Days: (0) No 3 or more CAD Risk Factors: (1) Yes 2 or more Angina events in past 24 hrs: (1) Yes Known CAD with more than 50% Stenosis: (0) No Elevated Cardiac Markers: (0) No ST Deviation Greater than 0.5mm: (0) No ALINA Score: 2 ED Medical Decision Making - Lab Data Result diagrams: 07/01/19 05:03 07/01/19 05:03 - EKG Data -: EKG Interpreted by Me EKG shows normal: sinus rhythm, axis, intervals, QRS complexes, ST-T waves Rate: tachycardia - Radiology Data Radiology results: report reviewed, image reviewed interpreted by me: First chest x-ray shows no acute findings. Second chest x-ray shows central venous line in good placement CTA CHEST WITH CONTRAST INDICATION / CLINICAL INFORMATION: P.E. PROTOCOL!!! Shortness of breath, Hypoxia Omnipaque 350 / 100ml's was used for this exam.. TECHNIQUE: Axial CT images were obtained through the chest after injection of IV contrast. 3 plane MIP and/or 3D reconstructions were produced. All CT scans at this location are performed using CT dose reduction for ALARA by means of automated exposure control. COMPARISON: CT dated 10/30/18 FINDINGS: PULMONARY ARTERIES: No pulmonary emboli. THORACIC AORTA: No significant abnormality. HEART: No significant abnormality. CORONARY ARTERIES: Mild left coronary calcifications are unchanged. MEDIASTINUM / TRACI: No significant abnormality. PLEURA: No pleural effusion. No pneumothorax. LUNGS: No acute air space or interstitial disease. ADDITIONAL FINDINGS: None. UPPER ABDOMEN: Moderate to large amount of food material in the stomach. SKELETAL STRUCTURES: No significant osseous abnormality. IMPRESSION: 1. No CT evidence for pulmonary embolism. 2. No acute findings. - Medical Decision Making Patient is a 54-year-old male who presents emergency room with complaints of chest pain shortness of breath. Patient also found to be hypoxic and hypotensive. Patient placed on a dobutamine drip initially. Patient's blood pressure responded well initially. Patient also given a 500 cc bolus of fluids. Patient had a central line placed early in his ER course due to the fact the patient was hypotensive and on a pressor. Patient's central venous line was placed without complications and the right IJ. Patient's x-ray shows good placement. Patient's initial chest x-ray shows no acute findings. Patient's follow-up chest x-ray after the central venous line also shows no acute findings outside of the satisfactory placement of the central venous line. Patient's labs are unremarkable except for hyperglycemia. Patient given 12 units of insulin which decreased his blood sugar. Patient admitted to the hospitalist service and into the ICU. Patient had a CTA done which showed no PE. After being mid to the hospitalist service the patient was still an ER as a hold and the patient became acutely short of breath with chest pain and extremely tachycardic. Patient's heart rate in the 150s.. Patient also hypotensive even on a dobutamine drip. Patient's dobutamine drip was DC'd and patient was placed on a Levophed drip. Patient responded well to the change to Levophed. Patient blood pressure improved. Patient's heart rate improved. Patient given another 500 cc bolus of saline. Patient's EKG repeated and shows no significant changes and is a sinus tachycardia with no STEMI the hospitalist made aware of the changes. Critical care time documented due to frequent reassessments and critical nature of the patient and the cardiac drips been used - Differential Diagnosis Hypoxia, hypotension, CHF, ACS, chest pain, shortness of breath, fatigue Critical Care Time: Yes Critical care time in (mins) excluding proc time.: 80 Critical care attestation.: If time is entered above; I have spent that time in minutes in the direct care of this critically ill patient, excluding procedure time. 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
[2019-07-01] MEDS ORDERED: DOBUTamine/D5W 500 MG/250 ML 500 MG/250 ML BAG IV ONE ×2 (00:54→02:05)
[2019-07-01] MEDS ORDERED: SODIUM CHLORIDE 0.9% 500 ML 500 ML IV ONE (01:04)
[2019-07-01] MEDS ORDERED: LIDOCAINE (1%) 10 MG/1 ML VIAL 20 ML MDV ONE (01:40)
[2019-07-01] MEDS ORDERED: LIDOCAINE 1%/EPINEPHRINE 1:100,000 VIAL (20 ML) INFILTRATI ONE (02:05)
[2019-07-01 02:07] LABS: Basophils % (Manual) 0 % (0.0-1.8); Eosinophils % (Manual) 0 % (0.0-4.3); Total Cells Counted 100
[2019-07-01] MEDS ORDERED: LIDOCAINE (1%) 10 MG/1 ML VIAL 20 ML MDV INFILTRATI ONE (02:07)
[2019-07-01 02:08] LABS: Platelet Estimate Consistent w Auto; RBC Morphology Normal
--- NOTE | 2019-07-01 02:56 | XRay Report ---
CHEST 1 VIEW 07/01/2019 2:30 AM INDICATION / CLINICAL INFORMATION: cvl place. COMPARISON: 12:08 AM FINDINGS: SUPPORT DEVICES: Right jugular central line is in place with tip projecting over the superior vena ca va. HEART / MEDIASTINUM: Stable. LUNGS / PLEURA: No significant pulmonary or pleural abnormality. No pneumothorax. ADDITIONAL FINDINGS: No significant additional findings. IMPRESSION: 1. Right jugular central line in expected position. Signer Name: Kelsi Farley MD Signed: 07/01/2019 2:51 AM Workstation Name: [id number]
--- NOTE | 2019-07-01 03:53 | Cat Scan Report ---
CTA CHEST WITH CONTRAST INDICATION / CLINICAL INFORMATION: P.E. PROTOCOL!!! Shortness of breath, Hypoxia Omnipaque 350 / 100ml's was used for this exam.. TECHNIQUE: Axial CT images were obtained through the chest after injection of IV contrast. 3 plane MIP and/or 3D reconstructions were produced. All CT scans at this location are performed using CT dose reduction f or ALARA by means of automated exposure control. COMPARISON: CT dated 10/30/18 FINDINGS: PULMONARY ARTERIES: No pulmonary emboli. THORACIC AORTA: No significant abnormality. HEART: No significant abnormality. CORONARY ARTERIES: Mild left coronary calcifications are unchanged. MEDIASTINUM / TRACI: No significant abnormality. PLEURA: No pleural effusion. No pneumothorax. LUNGS: No acute air space or interstitial disease. ADDITIONAL FINDINGS: None. UPPER ABDOMEN: Moderate to large amount of food material in the stomach. SKELETAL STRUCTURES: No significant osseous abnormality. IMPRESSION: 1. No CT evidence for pulmonary embolism. 2. No acute findings. Signer Name: Kelsi Farley MD Signed: 07/01/2019 3:49 AM Workstation Name: [id number]
[2019-07-01] MEDS ORDERED: INSULIN REGULAR, HUMAN 100 UNITS/1 ML IV ONE (04:05)
[2019-07-01] MEDS ORDERED: ONDANSETRON 4 MG/2 ML INJ IV PRN (04:21)
[2019-07-01] MEDS ORDERED: ACETAMINOPHEN 325 MG TAB PO PRN (04:21)
--- NOTE | 2019-07-01 04:29 | History and Physical Report ---
History of Present Illness History of present illness: 53 year-old man with a history of hypertension, diabetes, CHF, coronary artery disease, COPD, seizure to the emergency room for evaluation of chest pain. States that the chest pain is in the right chest that started 3 days ago, describes a sharp pain, intermittent every 10 minutes, intensity 5/10, no radiation, cannot identify exacerbating factors. Admits to shortness of breath, palpitation, no nausea vomiting or diaphoresis. In the emergency room he was found to be hypotensive, systolic blood pressure in the 70s, he was given 500 cc bolus and then started on a dobutamine drip but developed more chest pain. He was switched to levophed. Patient will be admitted for hypotension, chest pain Review of systems Constitutional: no weight loss Ears, eyes, nose, mouth and throat: no nasal congestion, no nasal discharge, no sinus pressure, no vision change, no red eye. Neck: No neck pain or rigidity. Cardiovascular: +palpitations Respiratory: no cough Gastrointestinal: no hematochezia, abdominal pain Genitourinary : no frequency , no hematuria Musculoskeletal: no joint swelling or muscle ache Integumentary: no rash, no pruritis Neurological: no parathesias, focal weakness Endocrine: no cold or heat intolerance, no polyuria or polydipsia Hematologic/Lymphatic: no easy bruising, no easy bleeding, no gland swelling Allergic/Immunologic: no urticaria, no angioedema. PAST MEDICAL HISTORY: hypertension, diabetes, CHF, coronary artery disease, COPD, seizure PAST SURGICAL HISTORY: AICD, pacemaker, hernia repair , appendectomy SOCIAL HISTORY: no tobacco, drugs +alcohol FAMILY HISTORY: Hypertension Medications and Allergies Allergies Allergy/AdvReac Type Severity Reaction Status Date / Time No Known Allergies Allergy Verified 01/24/18 08:29 Home Medications Medication Instructions Recorded Confirmed Last Taken Type Cyclobenzaprine [Flexeril 10 MG 10 mg PO TID PRN #30 tablet 02/07/18 10/31/18 10/29/18 Rx TAB] Ondansetron [Zofran ODT TAB] 4 mg PO Q8HR PRN #20 tab.rapdis 04/01/18 10/31/18 0 10/29/18 Rx Promethazine [Phenergan] 25 mg PO Q6HR PRN #20 tab 04/01/18 10/31/18 10/29/18 Rx Insulin Aspart Prot/Aspart(Nf) 8 units SQ BID #1 vial 10/31/18 Unknown Rx [NovoLOG Mix 70/30 VIAL] levETIRAcetam [Keppra TAB] 500 mg PO BID #60 tablet 10/31/18 Unknown Rx Active Meds: Active Medications Acetaminophen (Tylenol) 650 mg PO Q4H PRN PRN Reason: Pain MILD(1-3)/Fever >100.5/CHAVIRA Enoxaparin Sodium (Enoxaparin) 30 mg SUB-Q QDAY ROSALINDA Dobutamine HCl/Dextrose (Dobutrex Drip 500mg/D5w 250ml) 500 mg in 250 mls @ 4.746 mls/hr IV TITR ONE; Protocol Stop: 07/03/19 06:45 Last Titration: 07/01/19 03:13 Dose: 4 mcg/kg/min, 9.492 mls/hr Documented by: Ondansetron HCl (Zofran) 4 mg IV Q8H PRN PRN Reason: Nausea And Vomiting Sodium Chloride (Sodium Chloride Flush Syringe 10 Ml) 10 ml IV BID ROSALINDA Sodium Chloride (Sodium Chloride Flush Syringe 10 Ml) 10 ml IV PRN PRN PRN Reason: LINE FLUSH Exam - Physical Exam Narrative exam: Gen. appearance: Patient lying in bed, no apparent distress HEENT: Normocephalic, atraumatic, pupils equally round and reactive to light, extraocular movement intact, and no sclericterus,. No JVD or thyromegaly or nodule,neck supple, no carotid bruit ,mucous membranes moist, no exudate or erythema Heart: S1, S2, regular rate and rhythm Lungs: Clear bilaterally, breathing comfortable Abdomen: Positive bowel sounds, nontender, nondistended, no organomegaly Extremity: no edema, cyanosis, clubbing Skin: No rash, nodules, warm, dry Neuro: Cranial nerves II to XII intact, speech is fluent, moves extremities, sensory intact - Constitutional Vitals: Temp Pulse Resp BP Pulse Ox 98.5 F 100 H 18 125/61 98 06/30/19 23:31 07/01/19 04:00 07/01/19 04:00 07/01/19 04:00 07/01/19 04:00 Results - Labs CBC & Chem 7: 07/01/19 05:03 03/27/20 05:03 Labs: Abnormal lab results 06/30/19 06/30/19 Range/Units 23:53 23:53 WBC 3.9 L (4.5-11.0) K/mm3 RDW 12.6 L (13.2-15.2) % Lymphocytes % (Manual) 44.0 H (13.4-35.0) % Monocytes % (Manual) 15.0 H (0.0-7.3) % Seg Neutrophils # Man 1.6 L (1.8-7.7) K/mm3 Sodium 129 L (137-145) mmol/L Chloride 88.3 L (98-107) mmol/L Glucose 677 H* (75-100) mg/dL - Imaging and Cardiology Chest x-ray: report reviewed CT scan - chest: report reviewed Assessment and Plan Assessment Hypotension, unclear etiology Continue levophed drip obtain cultures, UA, start empiric antibiotics Chest pain/CAD Check cardiac enzymes, consult cardiology Will need a stress test once stable Diabetes with hyperglycemia Check fingersticks, start sliding scale Restart outpatient medications CHF, chronic stable DVT prophylaxis
[2019-07-01] MEDS ORDERED: DEXTROSE 50% IN WATER (25GM) 50 ML SYRINGE IV PRN (04:43)
[2019-07-01] MEDS ORDERED: PIPERACIL/TAZOBACTA 4.5/NS 100 4.5 GM/100 ML VIAL IV ONE (04:45)
[2019-07-01 05:20] LABS: Hematocrit 37.1 % (35.5-45.6); Hemoglobin 12.7 gm/dl (11.8-15.2); Mean Corpuscular HGB Conc 34 % (32-34); Mean Corpuscular Volume 86 fl (84-94); Platelet Count 221 K/mm3 (140-440); Red Blood Count 4.29 M/mm3 (3.65-5.03); Red Cell Distribution Width 12.6 % (13.2-15.2)
[2019-07-01 05:34] LABS: Calcium 8.8 mg/dL (8.4-10.2)
[2019-07-01] MEDS ORDERED: SODIUM CHLORIDE 0.9% 1000 ML 1,000 ML ONE ×2 (05:34→09:55)
[2019-07-01 05:36] LABS: Creatine Kinase MB 3.1 ng/mL (0.0-4.0)
[2019-07-01] MEDS ORDERED: NORepinephrine/NS 4 MG-250 ML 4 MG/250 ML BAG IV ONE (05:38)
[2019-07-01] MEDS ORDERED: NORepinephrine/NS 4 MG-250 ML 4 MG/250 ML BAG IV SCH (05:45)
[2019-07-01 06:20] LABS: Band Neutrophils # (Manual) 0.1 K/mm3; Basophils % (Manual) 0 % (0.0-1.8); Total Cells Counted 100
[2019-07-01 06:24] LABS: Platelet Estimate Consistent w Auto; RBC Morphology Normal
[2019-07-01 06:33] LABS: Bacteria,Urine 2+ /HPF (Negative); Bilirubin,Urine NEG (Negative); Blood,Urine NEG (Negative); Color,Urine Yellow (Yellow); Mucus,Urine FEW /HPF; Protein,Urine <15 mg/dL mg/dL (Negative); Urobilinogen,Urine < 2.0 mg/dL (<2.0)
[2019-07-01 06:39] LABS: Amphetamine Screen,Urine PRESUMPTIVE NEGATIVE; Benzodiazepines Screen,Urine PRESUMPTIVE NEGATIVE; Cannabinoid Screen,Urine PRESUMPTIVE NEGATIVE; Methadone Screen,Urine PRESUMPTIVE NEGATIVE; Opiate Screen,Urine PRESUMPTIVE NEGATIVE
[2019-07-01 06:53] LABS: Cocaine Screen,Urine PRESUMPTIVE POSITIVE
[2019-07-01] MEDS: INSULIN LISPRO 100 UNIT/ML SUB-Q SCH ×4 (07:47→21:18)
[2019-07-01] MEDS ORDERED: SODIUM CHLORIDE 0.9% 1000 ML 2,000 ML IV ONE (09:03)
[2019-07-01] MEDS ORDERED: ENOXAPARIN 40 MG/0.4 ML INJ SUB-Q ONE (09:54)
[2019-07-01] MEDS ORDERED: ENOXAPARIN 30 MG/0.3 ML INJ SUB-Q SCH (10:00)
[2019-07-01] MEDS: ENOXAPARIN 40 MG/0.4 ML INJ SUB-Q SCH (10:08)
--- NOTE | 2019-07-01 10:32 | Consultation ---
<KYLAH AMOS - Last Filed: 07/01/19 10:53> History of Present Illness Consult date: 07/01/19 Requesting physician: ELISE TAPIA Consult reason: chest pain History of present illness: The pt is a 54 YO male with a past history of cocaine abuse, cardiomyopathy with now normalized EF, PPM, diabetes, peripheral neuropathy. He has been seen by our practice on prior hospitalizations, non compliant with OP follow up. He presented with complaints of chest pain for 2-3 days prior to arrival. He describes his chest pain as an intermittent left sided aching which is aggravated by coughing. He also reports dry cough, generalized body aches, SOB and subjective fever. Following arrival to ED, pt found to be hypotensive, central line placed and pt initiated on vasopressors and IVF. BG found to be 677. Pt admits that he has not been taking any diabetic medications. CXR NAF, chest CT negative for PE, NAF. Pt was hospitalized in 09/2016 at [place]. Per the records, he was admitted there at that time for syncope and chest pain. He left [facility] before stress test could be obtained. A [employer] pacemaker was placed for AV block, his EF was 30- 35%, AICD was not placed secondary to his ongoing drug use (cocaine). Echo done 09/2016 showed EF 30-35%, mod reduced RV systolic function. Echo done 01/2018 showed EF 50-55%, trace MR and TR. Past History Past Medical History: other (as per HPI) Medications and Allergies Allergies Allergy/AdvReac Type Severity Reaction Status Date / Time No Known Allergies Allergy Verified 01/24/18 08:29 Home Medications Medication Instructions Recorded Confirmed Last Taken Type Cyclobenzaprine [Flexeril 10 MG 10 mg PO TID PRN #30 tablet 02/07/18 10/31/18 10/29/18 Rx TAB] Ondansetron [Zofran ODT TAB] 4 mg PO Q8HR PRN #20 tab.rapdis 04/01/18 10/31/18 10/29/18 Rx Promethazine [Phenergan] 25 mg PO Q6HR PRN #20 tab 04/01/18 10/31/18 10/29/18 Rx Insulin Aspart Prot/Aspart(Nf) 8 units SQ BID #1 vial 10/31/18 Unknown Rx [NovoLOG Mix 70/30 VIAL] levETIRAcetam [Keppra TAB] 500 mg PO BID #60 tablet 10/31/18 Unknown Rx Active Meds: Active Medications Acetaminophen (Tylenol) 650 mg PO Q4H PRN PRN Reason: Pain MILD(1-3)/Fever >100.5/CHAVIRA Dextrose (D50w (25gm) Syringe) 50 ml IV Q30MIN PRN; Protocol PRN Reason: Hypoglycemia Enoxaparin Sodium (Enoxaparin) 40 mg SUB-Q QDAY@1000 ROSALINDA Last Admin: 07/01/19 10:08 Dose: 40 mg Documented by: Norepinephrine (Levophed Drip 4 Mg/Ns 250 Ml) 4 mg in 250 mls @ 7.5 mls/hr IV TITR [facility]; Protocol Last Titration: 07/01/19 10:15 Dose: 0 mcg/min, 0 mls/hr Documented by: Sodium Chloride (Nacl 0.9% 1000 Ml) 2,000 mls @ 999 mls/hr IV ONCE ONE Stop: 07/01/19 11:03 Last Admin: 07/01/19 10:09 Dose: 999 mls/hr Documented by: Insulin Human Lispro (Humalog) 0 unit SUB-Q ACHS [facility]; Protocol Last Admin: 07/01/19 07:47 Dose: 4 unit Documented by: Ondansetron HCl (Zofran) 4 mg IV Q8H PRN PRN Reason: Nausea And Vomiting Sodium Chloride (Sodium Chloride Flush Syringe 10 Ml) 10 ml IV BID [facility] Last Admin: 07/01/19 10:15 Dose: 10 ml Documented by: Sodium Chloride (Sodium Chloride Flush Syringe 10 Ml) 10 ml IV PRN PRN PRN Reason: LINE FLUSH Review of Systems Constitutional: fever, no weight loss, no weight gain Ears, nose, mouth and throat: no ear pain, no nose pain, no sinus pressure, no sinus pain Cardiovascular: chest pain, shortness of breath, no orthopnea, no palpitations, no rapid/irregular heart beat, no edema, no syncope, no lightheadedness Respiratory: cough, shortness of breath, pain on inspiration, no congestion, no wheezing Gastrointestinal: no abdominal pain, no nausea, no vomiting, no diarrhea, no co nstipation, no change in bowel habits Genitourinary Male: no dysuria, no hematuria, no flank pain, no discharge, no urinary frequency, no urinary hesitancy Musculoskeletal: no neck stiffness, no neck pain, no shooting arm pain, no arm numbness/tingling, no low back pain, no shooting leg pain Integumentary: no rash, no pruritis, no redness, no sores, no wounds Neurological: no head injury, no paralysis, no weakness, no parathesias, no numbness, no tingling, no seizures, no syncope Psychiatric: no anxiety Endocrine: no cold intolerance, no heat intolerance Hematologic/Lymphatic: no easy bruising Physical Examination Vital Signs Temp Pulse Resp BP Pulse Ox 98.5 F 118 H 18 104/66 97 06/30/19 23:31 06/30/19 23:31 06/30/19 23:31 06/30/19 23:31 06/30/19 23:31 General appearance: no acute distress HEENT: Positive: PERRL, Normocephaly, Mucus Membranes Moist Neck: Positive: neck supple, trachea midline Cardiac: Positive: Reg Rate and Rhythm, S1/S2 Lungs: Positive: Decreased Breath Sounds Neuro: Positive: Grossly Intact Abdomen: Negative: Tender Skin: Negative: Rash Musculoskeletal: No Pain Extremities: Absent: edema Results 07/01/19 05:03 07/01/19 05:03 Cardiac Enzymes 07/01/19 Range/Units 05:03 CK-MB (CK-2) 3.1 (0.0-4.0) ng/mL CBC 06/30/19 07/01/19 Range/Units 23:53 05:03 WBC 3.9 L 4.0 L (4.5-11.0) K/mm3 RBC 4.36 4.29 (3.65-5.03) M/mm3 Hgb 12.6 12.7 (11.8-15.2) gm/dl Hct 38.4 37.1 (35.5-45.6) % Plt Count 229 221 (140-440) K/mm3 Comprehensive Metabolic Panel 06/30/19 07/01/19 Range/Units 23:53 05:03 Sodium 129 L 136 L D (137-145) mmol/L Potassium 4.3 3.3 L D (3.6-5.0) mmol/L Chloride 88.3 L 95.8 L (98-107) mmol/L Carbon Dioxide 26 24 (22-30) mmol/L BUN 14 14 (9-20) mg/dL Creatinine 1.3 1.5 (0.8-1.5) mg/dL Glucose 677 H* 277 H (75-100) mg/dL Calcium 8.6 8.8 (8.4-10.2) mg/dL - Imaging and Cardiology Echo: report reviewed (01/2018 showed EF 50-55%, trace MR and TR.) EKG: report reviewed, image reviewed EKG interpretations - Telemetry EKG Rhythm: Sinus Rhythm - EKG Sinus rhythms and dysrhythmias: sinus rhythm Assessment and Plan Chest pain appears pleuritic. AMI r/o. Obtain echo. Consider stress test once medically stabilized - ? Thursday. Wean levophed as tolerated. Will follow. The patient has been seen in conjunction with Dr. Duff who agrees with the assessment and plan of care - Patient Problems (1) Chest pain Current Visit: Yes Status: Acute Qualifiers: Qualified Code(s): R07.9 - Chest pain, unspecified (2) Diabetes mellitus with hyperglycemia Current Visit: Yes Status: Chronic (3) Hypotension Current Visit: Yes Status: Acute Qualifiers: Hypotension type: unspecified hypotension type Qualified Code(s): I95.9 - Hypotension, unspecified (4) Cocaine abuse Current Visit: Yes Status: Chronic (5) History of cardiomyopathy Current Visit: Yes Status: Chronic (6) Cardiac pacemaker in situ Current Visit: Yes Status: Chronic <ARTI DUFF R - Last Filed: 07/01/19 12:30> Medications and Allergies Active Meds: Active Medications Acetaminophen (Tylenol) 650 mg PO Q4H PRN PRN Reason: Pain MILD(1-3)/Fever >100.5/CHAVIRA Dextrose (D50w (25gm) Syringe) 50 ml IV Q30MIN PRN; Protocol PRN Reason: Hypoglycemia Enoxaparin Sodium (Enoxaparin) 40 mg SUB-Q QDAY@1000 ROSALINDA Last Admin: 07/01/19 10:08 Dose: 40 mg Documented by: Norepinephrine (Levophed Drip 4 Mg/Ns 250 Ml) 4 mg in 250 mls @ 7.5 mls/hr IV TITR ROSALINDA; Protocol Last Titration: 07/01/19 10:15 Dose: 0 mcg/min, 0 mls/hr Documented by: Insulin Human Lispro (Humalog) 0 unit SUB-Q ACHS [facility]; Protocol Last Admin: 07/01/19 07:47 Dose: 4 unit Documented by: Ondansetron HCl (Zofran) 4 mg IV Q8H PRN PRN Reason: Nausea And Vomiting Sodium Chloride (Sodium Chloride Flush Syringe 10 Ml) 10 ml IV BID ROSALINDA Last Admin: 07/01/19 10:15 Dose: 10 ml Documented by: Sodium Chloride (Sodium Chloride Flush Syringe 10 Ml) 10 ml IV PRN PRN PRN Reason: LINE FLUSH Physical Examination Vital Signs Temp Pulse Resp BP Pulse Ox 98.5 F 118 H 18 104/66 97 06/30/19 23:31 06/30/19 23:31 06/30/19 23:31 06/30/19 23:31 06/30/19 23:31 Results 07/01/19 05:03 07/01/19 05:03 Cardiac Enzymes 07/01/19 07/01/19 Range/Units 05:03 10:34 CK-MB (CK-2) 3.1 2.9 (0.0-4.0) ng/mL Lipids 07/01/19 Range/Units 10:34 Triglycerides 91 (2-149) mg/dL Cholesterol 141 (50-199) mg/dL HDL Cholesterol 59 (40-59) mg/dL Cholesterol/HDL Ratio 2.38 % CBC 06/30/19 07/01/19 Range/Units 23:53 05:03 WBC 3.9 L 4.0 L (4.5-11.0) K/mm3 RBC 4.36 4.29 (3.65-5.03) M/mm3 Hgb 12.6 12.7 (11.8-15.2) gm/dl Hct 38.4 37.1 (35.5-45.6) % Plt Count 229 221 (140-440) K/mm3 Comprehensive Metabolic Panel 06/30/19 07/01/19 Range/Units 23:53 05:03 Sodium 129 L 136 L D (137-145) mmol/L Potassium 4.3 3.3 L D (3.6-5.0) mmol/L Chloride 88.3 L 95.8 L (98-107) mmol/L Carbon Dioxide 26 24 (22-30) mmol/L BUN 14 14 (9-20) mg/dL Creatinine 1.3 1.5 (0.8-1.5) mg/dL Glucose 677 H* 277 H (75-100) mg/dL Calcium 8.6 8.8 (8.4-10.2) mg/dL - Imaging and Cardiology Echo: other (07/01/2019 normal lv function no signficant regurtiations) Assessment and Plan pt has normal lv function, chest pain is reproducbile and negative trop, wean off levophed, cont dm control, out patient stress testing if clinically needed.
[2019-07-01 11:19] LABS: Creatine Kinase MB 2.9 ng/mL (0.0-4.0)
[2019-07-01 11:58] LABS: Chol/HDL Ratio 2.38 %
[2019-07-01] MEDS ORDERED: INSULIN LISPRO 100 UNIT/ML SUB-Q ONE (12:58)
[2019-07-01] MEDS: oxyCODONE /ACETAMINOPHEN 5-325MG TAB PO PRN ×2 (15:52→22:37)
--- NOTE | 2019-07-01 15:55 | Event Note ---
Date: 07/01/19 Patient was admitted this morning with chest pain Appropriately being treated, evaluated by cardiology Patient's medical records reviewed Agree with the current management Plan of care reviewed with the patient and his nurse
[2019-07-01] MEDS ORDERED: POTASSIUM CHLORIDE ER 20 MEQ TAB PO ONE (15:58)
[2019-07-01] MEDS ORDERED: INSULIN NPH/REGULAR 70/30 INJ SUB-Q ONE (19:12)
[2019-07-01] MEDS: levETIRAcetam 500 MG TAB PO SCH (21:18)
[2019-07-02] MEDS ORDERED: INSULIN NPH/REGULAR 70/30 INJ SUB-Q SCH (08:00)
[2019-07-02] MEDS: INSULIN LISPRO 100 UNIT/ML SUB-Q SCH ×4 (09:38→21:14)
[2019-07-02] MEDS: oxyCODONE /ACETAMINOPHEN 5-325MG TAB PO PRN ×2 (09:49→17:34)
[2019-07-02] MEDS: ENOXAPARIN 40 MG/0.4 ML INJ SUB-Q SCH (09:49)
[2019-07-02] MEDS: levETIRAcetam 500 MG TAB PO SCH ×2 (09:49→21:02)
--- NOTE | 2019-07-02 10:14 | Progress Note ---
Assessment and Plan clinically stable no further cp hypotension is noncardiac (Echo revealed nl lv fxn) --? volume depletion in setting of severe hyperglycemia/osmotic diuresis start asa (h/p cad/cpi) IVF and supportive care will follow - Patient Problems (1) Fatigue Current Visit: Yes Status: Acute Qualifiers: Fatigue type: unspecified Qualified Code(s): R53.83 - Other fatigue (2) Hyperglycemia Current Visit: Yes Status: Acute (3) Hyponatremia Current Visit: Yes Status: Acute (4) Hypotension Current Visit: Yes Status: Acute Qualifiers: Hypotension type: unspecified hypotension type Qualified Code(s): I95.9 - Hypotension, unspecified (5) Cocaine abuse Current Visit: Yes Status: Chronic (6) Diabetes mellitus with hyperglycemia Current Visit: Yes Status: Chronic (7) MARYLOU (acute kidney injury) Current Visit: No Status: Acute (8) DKA (diabetic ketoacidoses) Current Visit: No Status: Acute (9) Diabetes mellitus type 2 in obese Current Visit: No Status: Acute (10) Generalized weakness Current Visit: No Status: Acute (11) Medical non-compliance Current Visit: No Status: Chronic (12) Peripheral neuropathy Current Visit: No Status: Chronic Qualifiers: Peripheral neuropathy type: polyneuropathy, unspecified Qualified Code(s): G62.9 - Polyneuropathy, unspecified Subjective Date of service: 07/02/19 Interval history: no complaints Objective Vital Signs Temp Pulse Resp BP BP Pulse Ox 07/02/19 09:52 98.5 F 76 18 99/54 95 07/02/19 04:15 98.0 F 81 18 88/42 96 07/02/19 04:00 78 07/02/19 00:59 20 07/01/19 23:44 98 F 68 18 92/49 99 07/01/19 21:12 100 07/01/19 20:08 75 07/01/19 19:21 97.8 F 86 18 105/52 93 07/01/19 16:33 98.0 F 76 18 120/69 99 07/01/19 14:16 83 14 116/94 97 07/01/19 14:00 89 12 112/72 98 07/01/19 13:45 74 11 L 112/72 96 07/01/19 13:30 74 12 119/74 96 07/01/19 13:15 74 13 120/76 97 07/01/19 13:00 73 11 L 117/72 96 07/01/19 12:45 72 14 123/81 97 07/01/19 12:30 74 10 L 119/72 98 07/01/19 12:15 73 9 L 123/77 96 07/01/19 12:00 78 12 120/78 100 07/01/19 11:45 77 17 120/78 93 07/01/19 11:30 76 13 101/55 95 07/01/19 11:15 81 11 L 104/68 95 07/01/19 11:00 80 14 104/61 97 07/01/19 10:45 84 16 99/62 98 07/01/19 10:30 82 12 100/59 99 07/01/19 10:15 84 12 100/59 - Physical Examination HEENT: Positive: PERRL, Normocephaly, Mucus Membranes Moist Neck: Positive: neck supple, trachea midline Neuro: Positive: Grossly Intact Abdomen: Negative: Tender Skin: Negative: Rash Musculoskeletal: No Pain Extremities: Absent: edema - Labs and Meds Cardiac Enzymes 07/01/19 Range/Units 10:34 CK-MB (CK-2) 2.9 (0.0-4.0) ng/mL Lipids 07/01/19 Range/Units 10:34 Triglycerides 91 (2-149) mg/dL Cholesterol 141 (50-199) mg/dL HDL Cholesterol 59 (40-59) mg/dL Cholesterol/HDL Ratio 2.38 % - Imaging and Cardiology EKG: report reviewed, image reviewed Echo: other (07/01/2019 normal lv function no signficant regurtiations) - EKG Sinus rhythms and dysrhythmias: sinus rhythm
[2019-07-02 10:35] LABS: BUN/Creatinine Ratio 7; Blood Urea Nitrogen 7 mg/dL (9-20); Calcium 8.1 mg/dL (8.4-10.2); Hemolysis Index 4
[2019-07-02] MEDS ORDERED: SODIUM CHLORIDE 0.9% 500 ML 500 ML IV ONE (12:00)
[2019-07-02] MEDS: ASPIRIN EC 325 MG TAB PO SCH (12:32)
--- NOTE | 2019-07-02 17:37 | Progress Note ---
Assessment and Plan Assessment and plan: --Hypotension: unclear etiology Patient received dobutamine at the time of admission Fluid boluses, if no improvement start Levophed drip --Type 2 diabetes mellitus; uncontrolled Accu-Cheks sliding scale coverage ADA diet Increase insulin 70/30 dose, adjust as needed HbA1c 13.1%, Diabetes and nutrition education Possible home health nurse for disease monitoring at discharge --Chest pain/CAD; Continue cardiac medications Cardiology following, possible stress test prior to discharge --History of cardiomyopathy; however Echo during this admission showed normal EF 50 to 55% No evidence of cardiomyopathy or congestive heart failure --History of permanent pacemaker; stable --History of seizure disorder; Seizure precautions, continue antiepileptic medications --Substance abuse; cocaine abuse Counseled and advised to quit recreational drug use Verbalized understanding --Ongoing tobacco use; smoking cessation advised Nicotine patch as needed Counseled and advised to quit smoking Preventive counseling done, Total time spent 17 minutes --DVT prophylaxis; Lovenox Monitor closely and adjust management as needed. Switchboard Operator recommendations noted and appreciated Plan of care reviewed with the patient and his nurse History Interval history: Patient seen and examined in his room at the bedside this morning Patient's chart list of medications reviewed Patient has intermittent hypo-tension, asymptomatic Slightly improved with fluid bolus Patient denies any chest pain or shortness of breath Vital signs reviewed Hospitalist Physical - Constitutional Vitals: Temp Pulse Resp BP Pulse Ox 97.7 F 73 18 88/47 100 07/02/19 13:43 07/02/19 13:43 07/02/19 13:43 07/02/19 13:43 07/02/19 13:43 General appearance: Present: no acute distress, well-nourished - EENT Eyes: Present: PERRL, EOM intact. Absent: scleral icterus, conjunctival injection - Neck Neck: Present: supple, normal ROM - Respiratory Respiratory effort: normal Respiratory: bilateral: diminished, negative: rales, rhonchi, wheezing - Cardiovascular Rhythm: regular Heart Sounds: Present: S1 & S2 - Extremities Extremities: no ischemia, No edema - Abdominal General gastrointestinal: soft, non-tender, non-distended, normal bowel sounds - Integumentary Integumentary: Present: clear, warm - Psychiatric Psychiatric: appropriate mood/affect, cooperative - Neurologic Neurologic: moves all extremities ALCIDES score - Alcides Score Age > 65: (0) No Aspirin use within the Past 7 Days: (0) No 3 or more CAD Risk Factors: (1) Yes 2 or more Angina events in past 24 hrs: (1) Yes Known CAD with more than 50% Stenosis: (0) No Elevated Cardiac Markers: (0) No ST Deviation Greater than 0.5mm: (0) No ALCIDES Score: 2 Results - Labs CBC & Chem 7: 07/01/19 05:03 07/02/19 08:46 Labs: Laboratory Last Values WBC 4.0 K/mm3 (4.5-11.0) L 07/01/19 05:03 RBC 4.29 M/mm3 (3.65-5.03) 07/01/19 05:03 Hgb 12.7 gm/dl (11.8-15.2) 07/01/19 05:03 Hct 37.1 % (35.5-45.6) 07/01/19 05:03 MCV 86 fl (84-94) 07/01/19 05:03 MCH 30 pg (28-32) 07/01/19 05:03 MCHC 34 % (32-34) 07/01/19 05:03 RDW 12.6 % (13.2-15.2) L 07/01/19 05:03 Plt Count 221 K/mm3 (140-440) 07/01/19 05:03 [place] % (Auto) Appeals Nurse 06/30/19 23:53 Add Manual Diff Complete 07/01/19 05:03 Total Counted 100 07/01/19 05:03 Seg Neutrophils % Appeals Nurse 07/01/19 05:03 Seg Neuts % (Manual) 31.0 % (40.0-70.0) L 07/01/19 05:03 Band Neutrophils % 2.0 % 07/01/19 05:03 Lymphocytes % (Manual) 51.0 % (13.4-35.0) H 07/01/19 05:03 Reactive Lymphs % (Man) 0 % 07/01/19 05:03 Monocytes % (Manual) 15.0 % (0.0-7.3) H 07/01/19 05:03 Eosinophils % (Manual) 1.0 % (0.0-4.3) 07/01/19 05:03 Basophils % (Manual) 0 % (0.0-1.8) 07/01/19 05:03 Metamyelocytes % 0 % 07/01/19 05:03 Myelocytes % 0 % 07/01/19 05:03 Promyelocytes % 0 % 07/01/19 05:03 Blast Cells % 0 % 07/01/19 05:03 Nucleated RBC % Not Reportable 07/01/19 05:03 Seg Neutrophils # Man 1.2 K/mm3 (1.8-7.7) L 07/01/19 05:03 Band Neutrophils # 0.1 K/mm3 07/01/19 05:03 Lymphocytes # (Manual) 2.0 K/mm3 (1.2-5.4) 07/01/19 05:03 Abs React Lymphs (Man) 0.0 K/mm3 07/01/19 05:03 Monocytes # (Manual) 0.6 K/mm3 (0.0-0.8) 07/01/19 05:03 Eosinophils # (Manual) 0.0 K/mm3 (0.0-0.4) 07/01/19 05:03 Basophils # (Manual) 0.0 K/mm3 (0.0-0.1) 07/01/19 05:03 Metamyelocytes # 0.0 K/mm3 07/01/19 05:03 Myelocytes # 0.0 K/mm3 07/01/19 05:03 Promyelocytes # 0.0 K/mm3 07/01/19 05:03 Blast Cells # 0.0 K/mm3 07/01/19 05:03 WBC Morphology Not Reportable 07/01/19 05:03 Hypersegmented Neuts Not Reportable 07/01/19 05:03 Hyposegmented Neuts Not Reportable 07/01/19 05:03 Hypogranular Neuts Not Reportable 07/01/19 05:03 Smudge Cells Not Reportable 07/01/19 05:03 Toxic Granulation Not Reportable 07/01/19 05:03 Toxic Vacuolation Not Reportable 07/01/19 05:03 Dohle Bodies Not Reportable 07/01/19 05:03 Pelger-Huet Anomaly Not Reportable 07/01/19 05:03 Tiara Rods Not Reportable 07/01/19 05:03 Platelet Estimate Consistent w auto 07/01/19 05:03 Clumped Platelets Not Reportable 07/01/19 05:03 Plt Clumps, EDTA Not Reportable 07/01/19 05:03 Large Platelets Not Reportable 07/01/19 05:03 Giant Platelets Not Reportable 07/01/19 05:03 Platelet Satelliting Not Reportable 07/01/19 05:03 Plt Morphology Comment Not Reportable 07/01/19 05:03 RBC Morphology Normal 07/01/19 05:03 Dimorphic RBCs Not Reportable 07/01/19 05:03 Polychromasia Not Reportable 07/01/19 05:03 Hypochromasia Not Reportable 07/01/19 05:03 Poikilocytosis Not Reportable 07/01/19 05:03 Anisocytosis Not Reportable 07/01/19 05:03 Microcytosis Not Reportable 07/01/19 05:03 Macrocytosis Not Reportable 07/01/19 05:03 Spherocytes Not Reportable 07/01/19 05:03 Pappenheimer Bodies Not Reportable 07/01/19 05:03 Sickle Cells Not Reportable 07/01/19 05:03 Target Cells Not Reportable 07/01/19 05:03 Tear Drop Cells Not Reportable 07/01/19 05:03 Ovalocytes Not Reportable 07/01/19 05:03 Helmet Cells Not Reportable 07/01/19 05:03 Estrella-Erskine Bodies Not Reportable 07/01/19 05:03 [place] Rings Not Reportable 07/01/19 05:03 Leslie Cells Not Reportable 07/01/19 05:03 Bite Cells Not Reportable 07/01/19 05:03 Crenated Cell Not Reportable 07/01/19 05:03 Elliptocytes Not Reportable 07/01/19 05:03 Acanthocytes (Spur) Not Reportable 07/01/19 05:03 Rouleaux Not Reportable 07/01/19 05:03 Hemoglobin C Crystals Not Reportable 07/01/19 05:03 Schistocytes Not Reportable 07/01/19 05:03 Malaria parasites Not Reportable 07/01/19 05:03 Pradeep Bodies Not Reportable 07/01/19 05:03 Hem Pathologist Commnt No 07/01/19 05:03 Sodium 135 mmol/L (137-145) L 07/02/19 08:46 Potassium 4.1 mmol/L (3.6-5.0) D 07/02/19 08:46 Chloride 100.5 mmol/L (98-107) 07/02/19 08:46 Carbon Dioxide 21 mmol/L (22-30) L 07/02/19 08:46 Anion Gap 18 mmol/L 07/02/19 08:46 BUN 7 mg/dL (9-20) L 07/02/19 08:46 Creatinine 1.0 mg/dL (0.8-1.5) 07/02/19 08:46 Estimated GFR > 60 ml/min 07/02/19 08:46 BUN/Creatinine Ratio 7 % 07/02/19 08:46 Glucose 240 mg/dL (75-100) H 07/02/19 08:46 POC Glucose 221 (70-105) H 07/02/19 17:00 Calcium 8.1 mg/dL (8.4-10.2) L 07/02/19 08:46 Magnesium 2.10 mg/dL (1.7-2.3) 07/02/19 08:46 Total Creatine Kinase 214 units/L (55-170) H 07/01/19 10:34 CK-MB (CK-2) 2.9 ng/mL (0.0-4.0) 07/01/19 10:34 CK-MB (CK-2) Rel Index 1.3 (0-4) 07/01/19 10:34 Troponin T 0.034 ng/mL (0.00-0.029) H D 07/01/19 10:34 Triglycerides 91 mg/dL (2-149) 07/01/19 10:34 Cholesterol 141 mg/dL (50-199) 07/01/19 10:34 LDL Cholesterol Direct 80 mg/dL (50-130) 07/01/19 10:34 HDL Cholesterol 59 mg/dL (40-59) 07/01/19 10:34 Cholesterol/HDL Ratio 2.38 % 07/01/19 10:34 Urine Color Yellow (Yellow) 07/01/19 06:20 Urine Turbidity Clear (Clear) 07/01/19 06:20 Urine pH 6.0 (5.0-7.0) 07/01/19 06:20 Ur Specific [place] 1.023 (1.003-1.030) 07/01/19 06:20 Urine Protein <15 mg/dl mg/dL (Negative) 07/01/19 06:20 Urine Glucose (UA) >=500 mg/dL (Negative) 07/01/19 06:20 Urine Ketones Neg mg/dL (Negative) 07/01/19 06:20 Urine Blood Neg (Negative) 07/01/19 06:20 Urine Nitrite Neg (Negative) 07/01/19 06:20 Urine Bilirubin Neg (Negative) 07/01/19 06:20 Urine Urobilinogen < 2.0 mg/dL (<2.0) 07/01/19 06:20 Ur Leukocyte Esterase Neg (Negative) 07/01/19 06:20 Urine WBC (Auto) 4.0 /HPF (0.0-6.0) 07/01/19 06:20 Urine RBC (Auto) 1.0 /HPF (0.0-6.0) 07/01/19 06:20 Urine Bacteria (Auto) 2+ /HPF (Negative) 07/01/19 06:20 Urine Mucus Few /HPF 07/01/19 06:20 Urine Opiates Screen Presumptive negative 07/01/19 06:20 Urine Methadone Screen Presumptive negative 07/01/19 06:20 Ur Barbiturates Screen Presumptive negative 07/01/19 06:20 Ur Phencyclidine Scrn Presumptive negative 07/01/19 06:20 Ur Amphetamines Screen Presumptive negative 07/01/19 06:20 U Benzodiazepines Scrn Presumptive negative 07/01/19 06:20 Urine Cocaine Screen Presumptive positive 07/01/19 06:20 U Marijuana (THC) Screen Presumptive negative 07/01/19 06:20 Drugs of Abuse Note Disclamer 07/01/19 06:20 Microbiology: Microbiology 07/01/19 05:03 Peripheral/Venous Blood Culture - Preliminary NO GROWTH AFTER 24 HOURS 07/01/19 05:03 Peripheral/Venous Blood Culture - Preliminary NO GROWTH AFTER 24 HOURS - Diagnostic Impressions Diagnostic Impressions: Echocardiogram 07/01/19 10:52 Transthoracic Echocardiogram Indication: Chest pain BP: 122/69 HR: 74 Conclusions *Global left ventricular wall motion and contractility are within normal limits. *Global left ventricular systolic function is normal. *The estimated ejection fraction is 50-55%. *Abnormal left ventricular diastolic filling is observed, consistent with impaired relaxation. *A pacemaker wire is visualized in the right atrium. *No atrial septal defected is demonstrated by agitated saline contrast. *The right ventricular global systolic function is normal. *There is no evidence of aortic regurgitation. *There is no evidence of mitral regurgitation. *There is trace tricuspid regurgitation. *The right ventricular systolic pressure is calculated at 37 mmHg. Findings Left Ventricle: The left ventricular chamber size is normal. There is no left ventricular hypertrophy. Global left ventricular wall motion and contractility are within normal limits. Global left ventricular systolic function is normal. The estimated ejection fraction is 50-55%. Abnormal left ventricular diastolic filling is observed, consistent with impaired relaxation. Right Ventricle: The right ventricular cavity size is normal. The right ventricular global systolic function is normal. Right Atrium: The right atrial cavity size is normal. A pacemaker wire is visualized in the right atrium. No atrial septal defected is demonstrated by agitated saline contrast. Aortic Valve: The aortic valve structure is normal. There is no evidence of aortic regurgitation. There is no evidence of aortic stenosis. Mitral Valve: The mitral valve leaflets are mildly thickened. There is no evidence of mitral regurgitation. Tricuspid Valve: The tricuspid valve leaflets are normal. There is trace tricuspid regurgitation. The right ventricular systolic pressure is calculated at 37 mmHg. Pulmonic Valve: The pulmonic valve appears normal. Aorta: The aorta appears normal. Venous: The inferior vena cava is dilated. There is less than 50% respiratory change in the inferior vena cava dimension. Contrast: Intravenous agitated saline contrast was used to assess intracardiac shunting. Measurements Chambers 2D Name Value Normal Range IVSd (2D) 1.09 cm (0.6 - 1.1) LVPWd (2D) 1.14 cm (0.6 - 1.1) LVIDd (2D) 4.51 cm (3.7 - 5.6) LVIDs (2D) 3.5 cm (2 - 3.8) LV FS (2D) 22.35 % - EF Teichholz (2D) 45.19 % - Ao root diameter (2D) 2.53 cm (2 - 3.7) Volumes/Mass Name Value Normal Range LA ESV SP 4CH (A/L) 26.65 ml - LA ESV SP 2CH (A/L) 35.44 ml - LA ESV BP (A/L) 31.96 ml - LA ESV BP (A/L) index 16.73 ml/m2 - LA ESV SP 4CH (MOD) 23.66 ml - LA ESV SP 2CH (MOD) 34.35 ml - LA ESV BP (MOD) 29.54 ml - LA ESV BP (MOD) index 15.47 ml/m2 - Diastolic/Systolic Function Name Value Normal Range MV E-wave Vmax 0.63 m/sec - MV deceleration time 187.79 msec - MV A-wave Vmax 0.57 m/sec - MV E:A ratio 1.1 ratio - Aortic Valve Name Value Normal Range AV Vmax 1.1 m/sec - AV VTI 22.42 cm - AV peak gradient 4.85 mmHg - AV mean gradient 2.82 mmHg - LVOT diameter 2.02 cm - LVOT Vmax 1.01 m/sec - LVOT VTI 21.15 cm - LVOT peak gradient 4.11 mmHg - LVOT mean gradient 2.39 mmHg - SV LVOT 67.54 ml - MOLLY (continuity Vmax) 2.94 cm2 - MOLLY (continuity VTI) 3.01 cm2 - Tricuspid Valve Name Value Normal Range TR Vmax 2.38 m/sec - TR peak gradient 22 mmHg - RAP 15 mmHg - RVSP 37 mmHg - IVC diameter 2.71 cm (1.2 - 2.3) Pulmonic Valve/Qp:Qs Name Value Normal Range PV Vmax 0.82 m/sec - PV peak gradient 2.7 mmHg - PV acceleration time 110.37 msec - [place]/IV: Voiding Method Toilet IV Catheter Type [Right Hand] INT / Saline Lock Active Medications - Current Medications Current Medications: Generic Name Dose Route Start Last Admin Trade Name Tung PRN Reason Stop Dose Admin Acetaminophen 650 mg 07/01/19 04:21 Tylenol PO Q4H PRN Pain MILD(1-3)/Fever >100.5/CHAVIRA Aspirin 325 mg 07/02/19 11:00 07/02/19 12:32 Ecotrin PO 325 mg QDAY ROSALINDA Administration Dextrose 50 ml 07/01/19 04:43 D50w (25gm) Syringe IV Q30MIN PRN Hypoglycemia Protocol Enoxaparin Sodium 40 mg 07/01/19 10:00 07/02/19 09:49 Enoxaparin SUB-Q 40 mg QDAY@1000 ROSALINDA Administration Sodium Chloride 1,000 mls @ 100 mls/hr 07/02/19 17:45 Nacl 0.9% 1000 Ml IV DIRECT ROSALINDA Insulin Human Isoph/Insulin Regular 14 unit 07/02/19 17:00 Humulin 70/30 SUB-Q BIDDIAB ROSAILNDA Insulin Human Lispro 0 unit 07/01/19 07:30 07/02/19 12:46 Humalog SUB-Q Not Given ACHS [facility] Protocol Levetiracetam 500 mg 07/01/19 22:00 07/02/19 09:49 Keppra PO 500 mg BID ROSALINDA Administration Ondansetron HCl 4 mg 07/01/19 04:21 Zofran IV Q8H PRN Nausea And Vomiting Oxycodone/Acetaminophen 1 tab 07/01/19 15:31 07/02/19 17:34 Percocet 5/325 PO 1 tab Q6H PRN Administration Pain, Moderate (4-6) Sodium Chloride 10 ml 07/01/19 10:00 07/02/19 10:00 Sodium Chloride Flush Syringe 10 Ml IV 10 ml BID ROSALINDA Administration Sodium Chloride 10 ml 07/01/19 04:21 Sodium Chloride Flush Syringe 10 Ml IV PRN PRN LINE FLUSH Nutrition/Malnutrition Assess - Dietary Evaluation Nutrition/Malnutrition Findings: Nutrition Notes Start: 07/02/19 08:39 Freq: Status: Active Protocol: Document 07/02/19 08:39 LP (Rec: 07/02/19 08:46 LP [id number]) Nutrition Notes Need for Assessment generated from: bioassayist Initial or Follow up Brief Note Current Diagnosis Diabetes,Hypertension,Heart Failure Other Pertinent Diagnosis ND, right knee wound Current Diet Cardiac/consistent CHO Labs/Tests Reviewed Pertinent Medications Reviewed Height 5 ft 7 in Weight 79.1 kg [place] Body Weight (kg) 67.27 BMI 27.3 Weight Status Overweight Subjective/Other Information Screen for MST. Pt upset about breakfast and hung up on me and did not answer rest of questions. 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 Burn Absent Trauma Absent Minimum of two criteria No physical signs of malnutrition Nutrition Intervention Revisit per MD consult or patient Sign Off request:
[2019-07-02] MEDS: INSULIN NPH/REGULAR 70/30 INJ SUB-Q SCH (17:38)
[2019-07-02] MEDS: MORPHINE 2 MG/1 ML INJ IV PRN (21:02)
[2019-07-02] MEDS: SODIUM CHLORIDE 0.9% 1000 ML 1,000 ML IV SCH (21:03)
[2019-07-03] MEDS: MORPHINE 2 MG/1 ML INJ IV PRN ×3 (03:16→18:34)
[2019-07-03] MEDS: SODIUM CHLORIDE 0.9% 1000 ML 1,000 ML IV SCH (06:49)
[2019-07-03] MEDS: INSULIN NPH/REGULAR 70/30 INJ SUB-Q SCH ×2 (08:56→18:33)
[2019-07-03] MEDS: INSULIN LISPRO 100 UNIT/ML SUB-Q SCH ×4 (08:56→22:19)
[2019-07-03] MEDS: levETIRAcetam 500 MG TAB PO SCH ×2 (09:52→20:36)
[2019-07-03] MEDS: ASPIRIN EC 325 MG TAB PO SCH (09:52)
[2019-07-03] MEDS: ENOXAPARIN 40 MG/0.4 ML INJ SUB-Q SCH (09:53)
--- NOTE | 2019-07-03 10:05 | Progress Note ---
Assessment and Plan clinically improved no further cp hypotension (improved) is noncardiac (Echo revealed nl lv fxn) --? volume depletion in setting of severe hyperglycemia/osmotic diuresis start asa (h/p cad/cpi) IVF and supportive care stress mpi in am will follow - Patient Problems (1) Fatigue Current Visit: Yes Status: Acute Qualifiers: Fatigue type: unspecified Qualified Code(s): R53.83 - Other fatigue (2) Hyperglycemia Current Visit: Yes Status: Acute (3) Hyponatremia Current Visit: Yes Status: Acute (4) Hypotension Current Visit: Yes Status: Acute Qualifiers: Hypotension type: unspecified hypotension type Qualified Code(s): I95.9 - Hypotension, unspecified (5) Cocaine abuse Current Visit: Yes Status: Chronic (6) Diabetes mellitus with hyperglycemia Current Visit: Yes Status: Chronic (7) MARYLOU (acute kidney injury) Current Visit: No Status: Acute (8) DKA (diabetic ketoacidoses) Current Visit: No Status: Acute (9) Diabetes mellitus type 2 in obese Current Visit: No Status: Acute (10) Generalized weakness Current Visit: No Status: Acute (11) Medical non-compliance Current Visit: No Status: Chronic (12) Peripheral neuropathy Current Visit: No Status: Chronic Qualifiers: Peripheral neuropathy type: polyneuropathy, unspecified Qualified Code(s): G62.9 - Polyneuropathy, unspecified Subjective Interval history: no complaints Objective Vital Signs Temp Pulse Resp BP BP Pulse Ox 07/03/19 08:52 99.1 F 82 18 104/66 97 07/03/19 08:00 20 07/03/19 04:12 98.0 F 86 18 105/56 95 07/03/19 04:00 84 07/02/19 23:08 98.0 F 101 H 18 132/68 98 07/02/19 20:00 84 20 07/02/19 19:46 99.3 F 85 18 112/65 99 07/02/19 18:08 78 18 125/77 95 07/02/19 16:01 98.7 F 76 20 101/65 100 07/02/19 13:43 97.7 F 73 18 88/47 100 - Physical Examination HEENT: Positive: PERRL, Normocephaly, Mucus Membranes Moist Neck: Positive: neck supple, trachea midline Neuro: Positive: Grossly Intact Abdomen: Negative: Tender Skin: Negative: Rash Musculoskeletal: No Pain Extremities: Absent: edema - Labs and Meds Comprehensive Metabolic Panel 07/02/19 Range/Units 08:46 Sodium 135 L (137-145) mmol/L Potassium 4.1 D (3.6-5.0) mmol/L Chloride 100.5 (98-107) mmol/L Carbon Dioxide 21 L (22-30) mmol/L BUN 7 L (9-20) mg/dL Creatinine 1.0 (0.8-1.5) mg/dL Glucose 240 H (75-100) mg/dL Calcium 8.1 L (8.4-10.2) mg/dL - Imaging and Cardiology EKG: report reviewed, image reviewed Echo: other (07/01/2019 normal lv function no signficant regurtiations) - EKG Sinus rhythms and dysrhythmias: sinus rhythm
--- NOTE | 2019-07-03 10:09 | Progress Note ---
Assessment and Plan Assessment and plan: Stress test tomorrow --Chest pain/CAD; Continue cardiac medications Cardiology following, possible stress test tomorrow --Hypotension: Improved Continue IV fluids as needed Hold antihypertensives --Type 2 diabetes mellitus; moderate control Accu-Cheks sliding scale coverage ADA diet Increase insulin 70/30 dose, adjust as needed HbA1c 13.1%, Diabetes and nutrition education Patient strongly advised to comply with medications and diet Possible home health nurse for disease monitoring at discharge --History of cardiomyopathy; however Echo during this admission showed normal EF 50 to 55% No evidence of cardiomyopathy or congestive heart failure --History of permanent pacemaker; stable --History of seizure disorder; Seizure precautions, continue antiepileptic medications --Substance abuse; cocaine abuse Counseled and advised to quit recreational drug use Verbalized understanding --Ongoing tobacco use; smoking cessation advised Nicotine patch as needed Counseled and advised to quit smoking Preventive counseling done, Total time spent 17 minutes --DVT prophylaxis; Lovenox Monitor closely and adjust management as needed. Butter Production Supervisor recommendations noted and appreciated Plan of care reviewed with the patient and his nurse History Interval history: Patient seen and examined at bedside Patient's chart and medication list reviewed Feels slightly better denies any chest pain shortness of breath Cardiology planning stress test tomorrow Vital signs reviewed stable Hospitalist Physical - Constitutional Vitals: Temp Pulse Resp BP Pulse Ox 99.1 F 82 18 104/66 97 07/03/19 08:52 07/03/19 08:52 07/03/19 08:52 07/03/19 08:52 07/03/19 08:52 General appearance: Present: no acute distress, well-nourished - EENT Eyes: Present: PERRL, EOM intact - Neck Neck: Present: supple, normal ROM - Respiratory Respiratory effort: normal Respiratory: bilateral: diminished, negative: rales, rhonchi, wheezing - Cardiovascular Rhythm: regular Heart Sounds: Present: S1 & S2 - Extremities Extremities: no ischemia, No edema - Abdominal General gastrointestinal: soft, non-tender, non-distended, normal bowel sounds - Integumentary Integumentary: Present: clear, warm - Psychiatric Psychiatric: appropriate mood/affect, cooperative - Neurologic Neurologic: CNII-XII intact, moves all extremities ALCIDES score - Alcides Score Age > 65: (0) No Aspirin use within the Past 7 Days: (0) No 3 or more CAD Risk Factors: (1) Yes 2 or more Angina events in past 24 hrs: (1) Yes Known CAD with more than 50% Stenosis: (0) No Elevated Cardiac Markers: (0) No ST Deviation Greater than 0.5mm: (0) No ALCIDES Score: 2 Results - Labs CBC & Chem 7: 07/01/19 05:03 07/02/19 08:46 Labs: Laboratory Last Values WBC 4.0 K/mm3 (4.5-11.0) L 07/01/19 05:03 RBC 4.29 M/mm3 (3.65-5.03) 07/01/19 05:03 Hgb 12.7 gm/dl (11.8-15.2) 07/01/19 05:03 Hct 37.1 % (35.5-45.6) 07/01/19 05:03 MCV 86 fl (84-94) 07/01/19 05:03 MCH 30 pg (28-32) 07/01/19 05:03 MCHC 34 % (32-34) 07/01/19 05:03 RDW 12.6 % (13.2-15.2) L 07/01/19 05:03 Plt Count 221 K/mm3 (140-440) 07/01/19 05:03 Mcmullen % (Auto) Mold Presser 06/30/19 23:53 Add Manual Diff Complete 07/01/19 05:03 Total Counted 100 07/01/19 05:03 Seg Neutrophils % Mold Presser 07/01/19 05:03 Seg Neuts % (Manual) 31.0 % (40.0-70.0) L 07/01/19 05:03 Band Neutrophils % 2.0 % 07/01/19 05:03 Lymphocytes % (Manual) 51.0 % (13.4-35.0) H 07/01/19 05:03 Reactive Lymphs % (Man) 0 % 07/01/19 05:03 Monocytes % (Manual) 15.0 % (0.0-7.3) H 07/01/19 05:03 Eosinophils % (Manual) 1.0 % (0.0-4.3) 07/01/19 05:03 Basophils % (Manual) 0 % (0.0-1.8) 07/01/19 05:03 Metamyelocytes % 0 % 07/01/19 05:03 Myelocytes % 0 % 07/01/19 05:03 Promyelocytes % 0 % 07/01/19 05:03 Blast Cells % 0 % 07/01/19 05:03 Nucleated RBC % Not Reportable 07/01/19 05:03 Seg Neutrophils # Man 1.2 K/mm3 (1.8-7.7) L 07/01/19 05:03 Band Neutrophils # 0.1 K/mm3 07/01/19 05:03 Lymphocytes # (Manual) 2.0 K/mm3 (1.2-5.4) 07/01/19 05:03 Abs React Lymphs (Man) 0.0 K/mm3 07/01/19 05:03 Monocytes # (Manual) 0.6 K/mm3 (0.0-0.8) 07/01/19 05:03 Eosinophils # (Manual) 0.0 K/mm3 (0.0-0.4) 07/01/19 05:03 Basophils # (Manual) 0.0 K/mm3 (0.0-0.1) 07/01/19 05:03 Metamyelocytes # 0.0 K/mm3 07/01/19 05:03 Myelocytes # 0.0 K/mm3 07/01/19 05:03 Promyelocytes # 0.0 K/mm3 07/01/19 05:03 Blast Cells # 0.0 K/mm3 07/01/19 05:03 WBC Morphology Not Reportable 07/01/19 05:03 Hypersegmented Neuts Not Reportable 07/01/19 05:03 Hyposegmented Neuts Not Reportable 07/01/19 05:03 Hypogranular Neuts Not Reportable 07/01/19 05:03 Smudge Cells Not Reportable 07/01/19 05:03 Toxic Granulation Not Reportable 07/01/19 05:03 Toxic Vacuolation Not Reportable 07/01/19 05:03 Dohle Bodies Not Reportable 07/01/19 05:03 Pelger-Huet Anomaly Not Reportable 07/01/19 05:03 Tiara Rods Not Reportable 07/01/19 05:03 Platelet Estimate Consistent w auto 07/01/19 05:03 Clumped Platelets Not Reportable 07/01/19 05:03 Plt Clumps, EDTA Not Reportable 07/01/19 05:03 Large Platelets Not Reportable 07/01/19 05:03 Giant Platelets Not Reportable 07/01/19 05:03 Platelet Satelliting Not Reportable 07/01/19 05:03 Plt Morphology Comment Not Reportable 07/01/19 05:03 RBC Morphology Normal 07/01/19 05:03 Dimorphic RBCs Not Reportable 07/01/19 05:03 Polychromasia Not Reportable 07/01/19 05:03 Hypochromasia Not Reportable 07/01/19 05:03 Poikilocytosis Not Reportable 07/01/19 05:03 Anisocytosis Not Reportable 07/01/19 05:03 Microcytosis Not Reportable 07/01/19 05:03 Macrocytosis Not Reportable 07/01/19 05:03 Spherocytes Not Reportable 07/01/19 05:03 Pappenheimer Bodies Not Reportable 07/01/19 05:03 Sickle Cells Not Reportable 07/01/19 05:03 Target Cells Not Reportable 07/01/19 05:03 Tear Drop Cells Not Reportable 07/01/19 05:03 Ovalocytes Not Reportable 07/01/19 05:03 Helmet Cells Not Reportable 07/01/19 05:03 Estrella-[place] Bodies Not Reportable 07/01/19 05:03 Bryson Rings Not Reportable 07/01/19 05:03 Leslie Cells Not Reportable 07/01/19 05:03 Bite Cells Not Reportable 07/01/19 05:03 Crenated Cell Not Reportable 07/01/19 05:03 Elliptocytes Not Reportable 07/01/19 05:03 Acanthocytes (Spur) Not Reportable 07/01/19 05:03 Rouleaux Not Reportable 07/01/19 05:03 Hemoglobin C Crystals Not Reportable 07/01/19 05:03 Schistocytes Not Reportable 07/01/19 05:03 Malaria parasites Not Reportable 07/01/19 05:03 Pradeep Bodies Not Reportable 07/01/19 05:03 Hem Pathologist Commnt No 07/01/19 05:03 Sodium 135 mmol/L (137-145) L 07/02/19 08:46 Potassium 4.1 mmol/L (3.6-5.0) D 07/02/19 08:46 Chloride 100.5 mmol/L (98-107) 07/02/19 08:46 Carbon Dioxide 21 mmol/L (22-30) L 07/02/19 08:46 Anion Gap 18 mmol/L 07/02/19 08:46 BUN 7 mg/dL (9-20) L 07/02/19 08:46 Creatinine 1.0 mg/dL (0.8-1.5) 07/02/19 08:46 Estimated GFR > 60 ml/min 07/02/19 08:46 BUN/Creatinine Ratio 7 % 07/02/19 08:46 Glucose 240 mg/dL (75-100) H 07/02/19 08:46 POC Glucose 256 (70-105) H 07/03/19 08:17 Calcium 8.1 mg/dL (8.4-10.2) L 07/02/19 08:46 Magnesium 2.10 mg/dL (1.7-2.3) 07/02/19 08:46 Total Creatine Kinase 214 units/L (55-170) H 07/01/19 10:34 CK-MB (CK-2) 2.9 ng/mL (0.0-4.0) 07/01/19 10:34 CK-MB (CK-2) Rel Index 1.3 (0-4) 07/01/19 10:34 Troponin T 0.034 ng/mL (0.00-0.029) H D 07/01/19 10:34 Triglycerides 91 mg/dL (2-149) 07/01/19 10:34 Cholesterol 141 mg/dL (50-199) 07/01/19 10:34 LDL Cholesterol Direct 80 mg/dL (50-130) 07/01/19 10:34 HDL Cholesterol 59 mg/dL (40-59) 07/01/19 10:34 Cholesterol/HDL Ratio 2.38 % 07/01/19 10:34 Urine Color Yellow (Yellow) 07/01/19 06:20 Urine Turbidity Clear (Clear) 07/01/19 06:20 Urine pH 6.0 (5.0-7.0) 07/01/19 06:20 Ur Specific [place] 1.023 (1.003-1.030) 07/01/19 06:20 Urine Protein <15 mg/dl mg/dL (Negative) 07/01/19 06:20 Urine Glucose (UA) >=500 mg/dL (Negative) 07/01/19 06:20 Urine Ketones Neg mg/dL (Negative) 07/01/19 06:20 Urine Blood Neg (Negative) 07/01/19 06:20 Urine Nitrite Neg (Negative) 07/01/19 06:20 Urine Bilirubin Neg (Negative) 07/01/19 06:20 Urine Urobilinogen < 2.0 mg/dL (<2.0) 07/01/19 06:20 Ur Leukocyte Esterase Neg (Negative) 07/01/19 06:20 Urine WBC (Auto) 4.0 /HPF (0.0-6.0) 07/01/19 06:20 Urine RBC (Auto) 1.0 /HPF (0.0-6.0) 07/01/19 06:20 Urine Bacteria (Auto) 2+ /HPF (Negative) 07/01/19 06:20 Urine Mucus Few /HPF 07/01/19 06:20 Urine Opiates Screen Presumptive negative 07/01/19 06:20 Urine Methadone Screen Presumptive negative 07/01/19 06:20 Ur Barbiturates Screen Presumptive negative 07/01/19 06:20 Ur Phencyclidine Scrn Presumptive negative 07/01/19 06:20 Ur Amphetamines Screen Presumptive negative 07/01/19 06:20 U Benzodiazepines Scrn Presumptive negative 07/01/19 06:20 Urine Cocaine Screen Presumptive positive 07/01/19 06:20 U Marijuana (THC) Screen Presumptive negative 07/01/19 06:20 Drugs of Abuse Note Disclamer 07/01/19 06:20 Microbiology: Microbiology 07/01/19 05:03 Peripheral/Venous Blood Culture - Preliminary NO GROWTH AFTER 48 HOURS 07/01/19 05:03 Peripheral/Venous Blood Culture - Preliminary NO GROWTH AFTER 48 HOURS - Diagnostic Impressions Diagnostic Impressions: Echocardiogram 07/01/19 10:52 Transthoracic Echocardiogram Indication: Chest pain BP: 122/69 HR: 74 Conclusions *Global left ventricular wall motion and contractility are within normal limits. *Global left ventricular systolic function is normal. *The estimated ejection fraction is 50-55%. *Abnormal left ventricular diastolic filling is observed, consistent with impaired relaxation. *A pacemaker wire is visualized in the right atrium. *No atrial septal defected is demonstrated by agitated saline contrast. *The right ventricular global systolic function is normal. *There is no evidence of aortic regurgitation. *There is no evidence of mitral regurgitation. *There is trace tricuspid regurgitation. *The right ventricular systolic pressure is calculated at 37 mmHg. Findings Left Ventricle: The left ventricular chamber size is normal. There is no left ventricular hypertrophy. Global left ventricular wall motion and contractility are within normal limits. Global left ventricular systolic function is normal. The estimated ejection fraction is 50-55%. Abnormal left ventricular diastolic filling is observed, consistent with impaired relaxation. Right Ventricle: The right ventricular cavity size is normal. The right ventricular global systolic function is normal. Right Atrium: The right atrial cavity size is normal. A pacemaker wire is visualized in the right atrium. No atrial septal defected is demonstrated by agitated saline contrast. Aortic Valve: The aortic valve structure is normal. There is no evidence of aortic regurgitation. There is no evidence of aortic stenosis. Mitral Valve: The mitral valve leaflets are mildly thickened. There is no evidence of mitral regurgitation. Tricuspid Valve: The tricuspid valve leaflets are normal. There is trace tricuspid regurgitation. The right ventricular systolic pressure is calculated at 37 mmHg. Pulmonic Valve: The pulmonic valve appears normal. Aorta: The aorta appears normal. Venous: The inferior vena cava is dilated. There is less than 50% respiratory change in the inferior vena cava dimension. Contrast: Intravenous agitated saline contrast was used to assess intracardiac shunting. Measurements Chambers 2D Name Value Normal Range IVSd (2D) 1.09 cm (0.6 - 1.1) LVPWd (2D) 1.14 cm (0.6 - 1.1) LVIDd (2D) 4.51 cm (3.7 - 5.6) LVIDs (2D) 3.5 cm (2 - 3.8) LV FS (2D) 22.35 % - EF Teichholz (2D) 45.19 % - Ao root diameter (2D) 2.53 cm (2 - 3.7) Volumes/Mass Name Value Normal Range LA ESV SP 4CH (A/L) 26.65 ml - LA ESV SP 2CH (A/L) 35.44 ml - LA ESV BP (A/L) 31.96 ml - LA ESV BP (A/L) index 16.73 ml/m2 - LA ESV SP 4CH (MOD) 23.66 ml - LA ESV SP 2CH (MOD) 34.35 ml - LA ESV BP (MOD) 29.54 ml - LA ESV BP (MOD) index 15.47 ml/m2 - Diastolic/Systolic Function Name Value Normal Range MV E-wave Vmax 0.63 m/sec - MV deceleration time 187.79 msec - MV A-wave Vmax 0.57 m/sec - MV E:A ratio 1.1 ratio - Aortic Valve Name Value Normal Range AV Vmax 1.1 m/sec - AV VTI 22.42 cm - AV peak gradient 4.85 mmHg - AV mean gradient 2.82 mmHg - LVOT diameter 2.02 cm - LVOT Vmax 1.01 m/sec - LVOT VTI 21.15 cm - LVOT peak gradient 4.11 mmHg - LVOT mean gradient 2.39 mmHg - SV LVOT 67.54 ml - MOLLY (continuity Vmax) 2.94 cm2 - MOLLY (continuity VTI) 3.01 cm2 - Tricuspid Valve Name Value Normal Range TR Vmax 2.38 m/sec - TR peak gradient 22 mmHg - RAP 15 mmHg - RVSP 37 mmHg - IVC diameter 2.71 cm (1.2 - 2.3) Pulmonic Valve/Qp:Qs Name Value Normal Range PV Vmax 0.82 m/sec - PV peak gradient 2.7 mmHg - PV acceleration time 110.37 msec - Griggs/IV: Voiding Method Urinal IV Catheter Type [Right Hand] INT / Saline Lock Active Medications - Current Medications Current Medications: Generic Name Dose Route Start Last Admin Trade Name Freq PRN Reason Stop Dose Admin Acetaminophen 650 mg 07/01/19 04:21 Tylenol PO Q4H PRN Pain MILD(1-3)/Fever >100.5/CHAVIRA Aspirin 325 mg 07/02/19 11:00 07/03/19 09:52 Ecotrin PO 325 mg QDAY ROSALINDA Administration Dextrose 50 ml 07/01/19 04:43 D50w (25gm) Syringe IV Q30MIN PRN Hypoglycemia Protocol Enoxaparin Sodium 40 mg 07/01/19 10:00 07/03/19 09:53 Enoxaparin SUB-Q 40 mg QDAY@1000 ROSALINDA Administration Sodium Chloride 1,000 mls @ 100 mls/hr 07/02/19 17:45 07/03/19 06:49 Nacl 0.9% 1000 Ml IV 100 mls/hr DIRECT ROSALINDA Administration Insulin Human Isoph/Insulin Regular 14 unit 07/02/19 17:00 07/03/19 08:56 Humulin 70/30 SUB-Q 14 unit BIDDIAB ROSALINDA Administration Insulin Human Lispro 0 unit 07/01/19 07:30 07/03/19 08:56 Humalog SUB-Q 6 unit ACHS ROSALINDA Administration Protocol Levetiracetam 500 mg 07/01/19 22:00 07/03/19 09:52 Keppra PO 500 mg BID ROSALINDA Administration Morphine Sulfate 2 mg 07/02/19 18:45 07/03/19 09:52 Morphine IV 2 mg Q6H PRN Administration Pain, Moderate (4-6) Ondansetron HCl 4 mg 07/01/19 04:21 Zofran IV Q8H PRN Nausea And Vomiting Oxycodone/Acetaminophen 1 tab 07/01/19 15:31 07/02/19 17:34 Percocet 5/325 PO 1 tab Q6H PRN Administration Pain, Moderate (4-6) Sodium Chloride 10 ml 07/01/19 10:00 07/03/19 09:52 Sodium Chloride Flush Syringe 10 Ml IV 10 ml BID ROSALINDA Administration Sodium Chloride 10 ml 07/01/19 04:21 Sodium Chloride Flush Syringe 10 Ml IV PRN PRN LINE FLUSH Nutrition/Malnutrition Assess - Dietary Evaluation Nutrition/Malnutrition Findings: Nutrition Notes Start: 07/02/19 08:39 Freq: Status: Active Protocol: Document 07/02/19 08:39 LP (Rec: 07/02/19 08:46 LP [id number]) Nutrition Notes Need for Assessment generated from: soup mixer Initial or Follow up Brief Note Current Diagnosis Diabetes,Hypertension,Heart Failure Other Pertinent Diagnosis OH, right knee wound Current Diet Cardiac/consistent CHO Labs/Tests Reviewed Pertinent Medications Reviewed Height 5 ft 7 in Weight 79.1 kg 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 Pt upset about breakfast and hung up on me and did not answer rest of questions. Pt states eating well IRRIGATOR GRAVITY FLOW. Burn Absent Trauma Absent Minimum of two criteria No physical signs of malnutrition Nutrition Intervention Revisit per MD consult or patient Sign Off request:
[2019-07-03] MEDS: oxyCODONE /ACETAMINOPHEN 5-325MG TAB PO PRN (20:36)
[2019-07-04] MEDS: levETIRAcetam 500 MG TAB PO SCH ×2 (00:41→11:37)
[2019-07-04] MEDS: INSULIN LISPRO 100 UNIT/ML SUB-Q SCH ×3 (00:43→12:21)
[2019-07-04] MEDS: MORPHINE 2 MG/1 ML INJ IV PRN ×2 (01:54→11:37)
[2019-07-04] MEDS: SODIUM CHLORIDE 0.9% 1000 ML 1,000 ML IV SCH (04:35)
[2019-07-04] MEDS ORDERED: REGADENOSON 0.4 MG/5 ML INJ IV ONE (07:06)
[2019-07-04] MEDS: INSULIN NPH/REGULAR 70/30 INJ SUB-Q SCH (10:20)
[2019-07-04 11:05] VITALS: BP 109/67
[2019-07-04] MEDS: ASPIRIN EC 325 MG TAB PO SCH (11:36)
[2019-07-04] MEDS: ENOXAPARIN 40 MG/0.4 ML INJ SUB-Q SCH (11:37)
--- NOTE | 2019-07-04 11:45 | Progress Note ---
Assessment and Plan Chest pain Currently resolved. Appears pleuritic and reproducible. AMI r/o. S/p lexiscan MPI stress test today which was negative for ischemia, EF 54%. Diabetes mellitus with hyperglycemia Improved. Hypotension Improved. Cocaine abuse Cessation encouraged. History of cardiomyopathy Echo done 09/2016 showed EF 30-35%, mod reduced RV systolic function. Echo done 07/01/2019 showed normal LV function, no significant abnormalities. Cardiac pacemaker in situ Pt was hospitalized in 09/2016 at [facility]. Per the records, he was admitted there at that time for syncope and chest pain. A [employer] pacemaker was placed for AV block, his EF was 30-35%, AICD was not placed secondary to his ongoing drug use (cocaine). Medical noncompliance Currently stable cardiac status. Pt may discharge from cardiology standpoint on present cardiac regimen. Recommend follow up in our office with Dr. Duff within 1 month ([phone]). The patient has been seen in conjunction with Dr. John who agrees with the assessment and plan of care Subjective Date of service: 07/04/19 Principal diagnosis: cp Interval history: pt for stress test today. no current complaints. in SR on tele. Objective Last Vital Signs Temp 98.0 F 07/04/19 04:19 Pulse 68 07/04/19 04:19 Resp 18 07/04/19 04:19 BP 109/67 07/04/19 09:47 Pulse Ox 99 07/04/19 04:19 - Physical Examination General: No Apparent Distress HEENT: Positive: PERRL, Normocephaly, Mucus Membranes Moist Neck: Positive: neck supple, trachea midline Cardiac: Positive: Reg Rate and Rhythm, S1/S2 Lungs: Positive: Decreased Breath Sounds Neuro: Positive: Grossly Intact Abdomen: Negative: Tender Skin: Negative: Rash Musculoskeletal: No Pain Extremities: Absent: edema - Imaging and Cardiology EKG: report reviewed, image reviewed Echo: other (07/01/2019 normal lv function no signficant regurtiations) - EKG Sinus rhythms and dysrhythmias: sinus rhythm
--- NOTE | 2019-07-04 14:36 | Discharge Summary ---
Providers - Providers Date of Admission: 07/01/19 04:21 Attending physician: RAJ GREENE 07/01/19 04:56 Consult to Physician [CONS] Routine Comment: Consulting Provider: CAYLA MAHMOOD Physician Instructions: Reason For Exam: cp Primary care physician: CLERICAL OFFICE Hospitalization Condition: Fair Disposition: DC-01 TO HOME OR SELFCARE Time spent for discharge: 32 min Exam - Constitutional Vitals: Temp Pulse Resp BP Pulse Ox 98.0 F 68 18 109/67 99 07/04/19 04:19 07/04/19 04:19 07/04/19 04:19 07/04/19 09:47 07/04/19 04:19 Plan Activity: advance as tolerated Diet: other (cardiac diet) Additional Instructions: If you have chest pain or shortness of breath contact MD or go to emergency room. ASA 81 mg over the counter Follow up with: PRIMARY MD DASIA [Primary Care Provider] - 3-5 Days ARTI REED MD [Staff Physician] - 08/05/19 Forms: AMA Form Prescriptions: Aspirin [Aspirin BABY CHEW TAB] 81 mg PO QDAY #30 tab.chew
[2019-07-05] MEDS ORDERED: ASPIRIN 81 MG TAB CHEW PO SCH (10:00)
== END 2019-07-04 14:45 | disposition home or self-care (01) | DRG 638 ==
LOC: ED 23:21 → CC1 07-01 04:21 → 4A 07-01 12:05
PROVIDERS: ADMIT Internal Medicine; ATTEND Internal Medicine
PROC: 02HV33Z Insertion of Infusion Device into Superior Vena Cava, Percutaneous Approach (ICD-10-PCS; principal; 2019-07-01)
PROC: B548ZZA Ultrasonography of Superior Vena Cava, Guidance (ICD-10-PCS; 2019-07-01)
DX: E11.10 Type 2 diabetes mellitus with ketoacidosis without coma (principal); N17.9 Acute kidney failure, unspecified; E87.1 Hypo-osmolality and hyponatremia; I42.8 Other cardiomyopathies; I25.10 Atherosclerotic heart disease of native coronary artery without angina pectoris; I95.9 Hypotension, unspecified; I11.0 Hypertensive heart disease with heart failure; I50.9 Heart failure, unspecified; E11.65 Type 2 diabetes mellitus with hyperglycemia; J44.9 Chronic obstructive pulmonary disease, unspecified; R07.9 Chest pain, unspecified; F14.10 Cocaine abuse, uncomplicated; G40.909 Epilepsy, unspecified, not intractable, without status epilepticus; E11.42 Type 2 diabetes mellitus with diabetic polyneuropathy; N40.0 Benign prostatic hyperplasia without lower urinary tract symptoms; I25.2 Old myocardial infarction; Z95.5 Presence of coronary angioplasty implant and graft; Z95.810 Presence of automatic (implantable) cardiac defibrillator; Z79.4 Long term (current) use of insulin; Z86.73 Personal history of transient ischemic attack (TIA), and cerebral infarction without residual deficits; Z90.49 Acquired absence of other specified parts of digestive tract; Z72.0 Tobacco use; Z71.6 Tobacco abuse counseling; Z71.51 Drug abuse counseling and surveillance of drug abuser
CPT/HCPCS: 36415; 71045; 71275; 78452; 80048; 80061; 80307; 81001; 82550; 82553; 82962; 83735; 84484; 85007; 85025; 87040; 93005; 93010; 93017; 93306; 94760; G0378; A9502; J1250; J1650; J1815; J2270; J2543; J2785; J7030; J7040; Q9967

== ENCOUNTER 2019-07-25 13:44 | Emergency (ER) | payer SELFPAY ==
[2019-07-25] MEDS ORDERED: ASPIRIN 325 MG TAB PO ONE (13:54)
--- NOTE | 2019-07-25 14:00 | Event Note ---
ED Screening Note Date of service: 07/25/19 Time: 13:59 ED Screening Note: 54 y/o male with HTN, CHF comes in for Chest pain. This initial assessment/diagnostic orders/clinical plan/treatment(s) is/are subject to change based on patients health status, clinical progression and re- assessment by fellow clinical providers in the ED. Further treatment and workup at subsequent clinical providers discretion. Patient/guardian urged not to elope from the ED as their condition may be serious if not clinically assessed and managed. Initial orders include:
--- NOTE | 2019-07-25 14:27 | XRay Report ---
CHEST 1 VIEW INDICATION: Chest Pain. COMPARISON: 07/01/2019 FINDINGS: Support devices: Stable cardiac leads. Right IJ line has been removed. Heart: Within normal limits. Lungs/Pleura: No acute air space or interstitial disease. Additional findings: None. IMPRESSION: 1. No acute findings. Signer Name: Rd Vicente MD Signed: 07/25/2019 2:23 PM Workstation Name: [id number]
--- NOTE | 2019-07-25 14:36 | Emergency Department Report ---
ED General Adult HPI - General Chief complaint: Chest Pain Stated complaint: CHESTPAIN Time Seen by Provider: 07/25/19 13:59 Source: patient, RN notes reviewed, old records reviewed Mode of arrival: Wheelchair Limitations: No Limitations - History of Present Illness Initial comments: This is a 54-year-old gentleman. I have evaluated this patient in the past. He was discharged from this hospital 20 days ago. He had a nuclear stress test which was negative for ischemia, EF of 54%, also found to have a history of diabetes with hyperglycemia, history of cocaine abuse, had a CT scan of the chest which was negative for pulmonary embolism, he also has a history of medication noncompliance, has a pacemaker in situ, not currently being paced secondary to ongoing cocaine use. As per recent cardiology documentation: "Currently stable cardiac status. Patient may discharge from cardiology standpoint on present cardiac regimen." It was recommended that the patient follow-up in the cardiology office within 1 month; [id number] Today, the patient presents to the ER with his typical complaint of chest wall pain. The pain has been present since last night. It is anterior, right and left. It is intermittent. The patient indicates it does not radiate to the back, arms or neck. There is no vomiting or diaphoresis. The patient does not complain of exertional shortness of breath. The patient makes no indication of recent surgery, recent prolonged immobilization, he denies calf pain and calf swelling, and he further indicates that he is not using cocaine. The pain increases with palpation and range of motion of the chest wall, and decreases with rest and position. The patient further indicates the pain is been present since last night, and he also states that on review of systems no cough, no fever, and no confirmed exposure to coronavirus. He indicates he is currently staying with a friend for sleeping arrangements -: hour(s) (18-) Location: chest Quality: other Consistency: other Improves with: other Worsens with: other Associated Symptoms: other - Related Data Previous Rx's Medication Instructions Recorded Last Taken Type Cyclobenzaprine [Flexeril 10 MG 10 mg PO TID PRN #30 tablet 02/07/18 10/29/18 Rx TAB] Ondansetron [Zofran ODT TAB] 4 mg PO Q8HR PRN #20 tab.rapdis 04/01/18 10/29/18 R x Promethazine [Phenergan] 25 mg PO Q6HR PRN #20 tab 04/01/18 10/29/18 Rx levETIRAcetam [Keppra TAB] 500 mg PO BID #60 tablet 10/31/18 Unknown Rx Acetaminophen [Acetaminophen TAB] 500 mg PO Q4HR PRN #30 tablet 07/25/19 Unknown Rx Aspirin [Aspirin BABY CHEW TAB] 81 mg PO QDAY #30 tab.chew 07/25/19 Unknown Rx Insulin Aspart Prot/Aspart(Nf) 18 units SQ BID #1 vial 07/25/19 Unknown Rx [NovoLOG Mix 70/30 VIAL] Allergies Allergy/AdvReac Type Severity Reaction Status Date / Time No Known Allergies Allergy Verified 01/24/18 08:29 ED Review of Systems ROS: Stated complaint: CHESTPAIN Other details as noted in HPI Constitutional: denies: fever Eyes: denies: eye discharge ENT: denies: congestion Respiratory: denies: wheezing Cardiovascular: chest pain. denies: syncope Gastrointestinal: denies: vomiting Genitourinary: as per HPI Musculoskeletal: as per HPI Skin: as per HPI Neurological: as per HPI Psychiatric: as per HPI Hematological/Lymphatic: as per HPI ED Past Medical Hx - Past Medical History Hx Hypertension: Yes Hx CVA: Yes Hx Heart Attack/AMI: Yes Hx Congestive Heart Failure: Yes Hx Diabetes: Yes Hx Renal Disease: Yes Hx Asthma: No Hx COPD: Yes Hx HIV: No Additional medical history: BPH - indwelling catherter - Surgical History Hx Coronary Stent: Yes Hx Pacemaker: Yes Hx Internal Defibrillator: Yes Hx Appendectomy: Yes Additional Surgical History: HERNIA SURGERY, Pacemaker - Social History Smoking Status: Never Smoker Substance Use Type: None - Medications Home Medications: Home Medications Medication Instructions Recorded Confirmed Last Taken Type Cyclobenzaprine [Flexeril 10 MG 10 mg PO TID PRN #30 tablet 02/07/18 10/31/18 10/29/18 Rx TAB] Ondansetron [Zofran ODT TAB] 4 mg PO Q8HR PRN #20 tab.rapdis 04/01/18 10/31/18 10/29/18 Rx Promethazine [Phenergan] 25 mg PO Q6HR PRN #20 tab 04/01/18 10/31/18 10/29/18 Rx levETIRAcetam [Keppra TAB] 500 mg PO BID #60 tablet 10/31/18 Unknown Rx Acetaminophen [Acetaminophen TAB] 500 mg PO Q4HR PRN #30 tablet 07/25/19 Unknown Rx Aspirin [Aspirin BABY CHEW TAB] 81 mg PO QDAY #30 tab.chew 07/25/19 Unknown Rx Insulin Aspart Prot/Aspart(Nf) 18 units SQ BID #1 vial 07/25/19 Unknown Rx [NovoLOG Mix 70/30 VIAL] ED Physical Exam - General Limitations: No Limitations General appearance: alert, in no apparent distress - Head Head exam: Present: atraumatic, normocephalic - Eye Eye exam: Present: normal appearance, EOMI. Absent: nystagmus - ENT ENT exam: Present: normal exam, normal orophraynx, mucous membranes moist, normal external ear exam - Neck Neck exam: Present: normal inspection, full ROM. Absent: tenderness, meningismus - Respiratory Respiratory exam: Present: normal lung sounds bilaterally, chest wall tenderness. Absent: respiratory distress - Cardiovascular Cardiovascular Exam: Present: regular rate, normal rhythm, normal heart sounds. Absent: bradycardia, tachycardia, irregular rhythm, systolic murmur, diastolic murmur, rubs, gallop - GI/Abdominal GI/Abdominal exam: Present: soft. Absent: distended, tenderness, guarding, rebound, rigid, pulsatile mass - Rectal Rectal exam: Present: deferred - Extremities Exam Extremities exam: Present: normal inspection, full ROM, other (2+ pulses noted in the bilateral upper and lower extremities. There is no palpable cord. negative Homans sign. Muscular compartments are soft. The pelvis is stable.). Absent: pedal edema, calf tenderness - Back Exam Back exam: Present: normal inspection, full ROM. Absent: tenderness, CVA tenderness (R), CVA tenderness (L), paraspinal tenderness, vertebral tenderness - Neurological Exam Neurological exam: Present: alert, other (No facial droop. Tongue midline. Extraocular movements intact bilaterally. Facial sensation intact to light touch in V1, V2, V3 distribution bilaterally. 5 and a 5 strength in 4 extremities. Sensation intact to light touch in 4 extremities.). Absent: motor sensory deficit - Psychiatric Psychiatric exam: Present: flat affect - Skin Skin exam: Present: warm, dry, intact, normal color. Absent: rash ED Course Vital Signs 07/25/19 07/25/19 07/25/19 13:51 14:32 15:00 Temperature 98.1 F Pulse Rate 107 H 97 H 93 H Respiratory 20 20 16 Rate Blood Pressure 130/73 109/71 114/70 Blood Pressure [Left] O2 Sat by Pulse 100 96 95 Oximetry 07/25/19 07/25/19 07/25/19 15:30 16:00 16:30 Temperature Pulse Rate 95 H 84 86 Respiratory 16 22 15 Rate Blood Pressure 103/67 109/67 112/68 Blood Pressure [Left] O2 Sat by Pulse 97 96 97 Oximetry 07/25/19 07/25/19 16:44 17:00 Temperature Pulse Rate 82 82 Respiratory 15 14 Rate Blood Pressure 107/59 Blood Pressure 112/68 [Left] O2 Sat by Pulse 95 97 Oximetry - Reevaluation(s) Reevaluation #1: 07/25/19 15:04 Differential diagnosis, including but not limited to: GERD, gastritis, costochondritis, hiatal hernia, pneumonia, acute coronary syndrome/coronary artery disease Assessment and plan: 54-year-old gentleman with a complaint of recurrent chest wall pain, had a negative CT scan of the chest for acute findings within the past month, and also had a nuclear medicine study which was negative for cardiac ischemia within the past month. On my initial assessment, he is afebrile with reassuring vital signs, with resolved tachycardia, and he is sleeping comfortably in his stretcher, without tachypnea, or hypoxia, and he is in no acute distress. He is reproducible chest wall tenderness. This is similar to prior examinations. His EKG today is morphologically unchanged x2, and unchanged from prior EKG from last month. Given that symptoms present for greater than 8 hours, as per the [employer] clinical policy, myocardial infarction may be ruled out with 1 set of troponins/cardiac enzymes. Screening laboratory studies sent, the patient is clinically sober at this time, we will treat his symptoms with Tylenol and Carafate, he states he is not using cocaine, I will refill his outpatient prescriptions, and he will be encouraged to follow-up with local outpatient cardiology. Reevaluation #2: 07/25/19 15:31 Laboratory studies show hyperglycemia, metabolic acidosis, pseudohyponatremia. IV fluids and insulin ordered. As per recent echocardiogram, patient had an ejection fraction of 50 to 55%. Reevaluation #3: 07/25/19 15:55 Please note that this patient presented to the emergency department during the 2019 COVID-19 pandemic Reevaluation #4: 07/25/19 18:17 Patient reassessed multiple times. On repeat evaluations, he is noted to be playing with a cellular phone in his stretcher, and in no acute distress. EKG is unchanged x2. Troponin negative x2. Hyperglycemia, anion gap, pseudohyponatremia improved. Patient suitable for discharge with outpatient follow-up at this time, does not meet criteria for hospitalization or admission at this time. ED Medical Decision Making - Lab Data Result diagrams: 07/25/19 14:43 07/25/19 17:06 Vital Signs 07/25/19 07/25/19 13:51 14:32 Temperature 98.1 F Pulse Rate 107 H 97 H Respiratory 20 20 Rate Blood Pressure 130/73 109/71 O2 Sat by Pulse 100 96 Oximetry - EKG Data -: EKG Interpreted by Ga EKG shows normal: sinus rhythm Rate: normal - EKG Data When compared to previous EKG there are: no significant change 07/25/19 15:06 EKG #1 shows a sinus rhythm, 94 bpm, normal axis, QTC prolonged, motion artifact, low voltage in the high lateral leads, there is motion artifact, the EKG is not a STEMI. EKG #2 is unchanged from prior. Both EKGs are unchanged from prior EKG from June 2019 - Radiology Data Radiology results: pending, report reviewed, image reviewed Print Report Referring Physician: NATALYA GAYTAN Patient Name: RACHELLE SANTOS Date of : 1965 Sex: Male Report Date: 2019-07-25 Report Status: Finalized Findings [facility] [address] [place] [address] XRay Report Signed Patient: RACHELLE SANTOS MR#: [id number] : 1965 Acct:[id number] Age/Sex: 54 / M ADM Date: 07/25/19 Loc: ED Attending Dr: Ordering Physician: RONN ALMONTE Date of Service: 07/25/19 Procedure(s): XR chest 1V ap Accession Number(s): [id number] cc: RONN ALMONTE Fluoro Time In Minutes: CHEST 1 VIEW INDICATION: Chest Pain. COMPARISON: 07/01/2019 FINDINGS: Support devices: Stable cardiac leads. Right IJ line has been removed. Heart: Within normal limits. Lungs/Pleura: No acute air space or interstitial disease. Additional findings: None. IMPRESSION: 1. No acute findings. Signer Name: dR Vicente MD Signed: 07/25/2019 2:23 PM Workstation Name: [id number] Transcribed By: YARELY Dictated By: Rd Vicente MD Electronically Authenticated By: Rd Vicente MD Signed Date/Time: 07/25/191422 DD/ 21 Critical care attestation.: If time is entered above; I have spent that time in minutes in the direct care of this critically ill patient, excluding procedure time. ED Disposition Clinical Impression: Chest wall pain, Hyperglycemia Disposition: DC-01 TO HOME OR SELFCARE Is pt being admited?: No Does the pt Need Aspirin: No Condition: Stable Additional Instructions: Avoid consumption of heavy and/or spicy foods, minimize consumption of Motrin, ibuprofen, Naprosyn, Aleve, avoid consumption of alcohol, cocaine and recreational drugs. The patient should follow-up with a locker room supervisor within the next 3 to 5 days. The patient was discharged from this hospital July 04, 2019, with instructions to follow-up with outpatient cardiology within 1 month of discharge. Therefore, the patient should follow-up with cardiology shortly, as previously recommended, and recommended today. The patient may contact any of the local listed cardiology department offices to arrange outpatient follow-up. Take the prescribed medications as directed and needed. Return to the emergency room right away with new, worsened or different symptoms, or symptoms not present on the initial emergency room evaluation. Prescriptions: Acetaminophen [Acetaminophen TAB] 500 mg PO Q4HR PRN #30 tablet PRN Reason: Pain , Severe (7-10) Aspirin [Aspirin BABY CHEW TAB] 81 mg PO QDAY #30 tab.chew Insulin Aspart Prot/Aspart(Nf) [NovoLOG Mix 70/30 VIAL] 18 units SQ BID #1 vial Referrals: [facility] [Provider Group] - 3-5 Days ARTI REED MD [Staff Physician] - 3-5 Days
[2019-07-25] MEDS ORDERED: SUCRALFATE 1 GM/10 ML ORAL LIQD PO ONE (15:07)
[2019-07-25] MEDS ORDERED: IBUPROFEN 400 MG TAB PO ONE (15:07)
[2019-07-25] MEDS ORDERED: ACETAMINOPHEN 500 MG TAB PO ONE (15:07)
[2019-07-25 15:17] LABS: BUN/Creatinine Ratio 11; Blood Urea Nitrogen 12 mg/dL (9-20); Calcium 8.8 mg/dL (8.4-10.2); Hemolysis Index 4
[2019-07-25] MEDS ORDERED: SODIUM CHLORIDE 0.9% 1000 ML 2,000 ML IV ONE (15:30)
[2019-07-25] MEDS ORDERED: INSULIN REGULAR, HUMAN 100 UNITS/1 ML IV ONE (15:30)
[2019-07-25 15:35] LABS: INR 1.11 (0.87-1.13)
[2019-07-25 15:41] LABS: Hematocrit 36.6 % (35.5-45.6); Hemoglobin 12.2 gm/dl (11.8-15.2); Mean Corpuscular HGB Conc 33 % (32-34); Mean Corpuscular Volume 87 fl (84-94); Platelet Count 327 K/mm3 (140-440); Red Blood Count 4.23 M/mm3 (3.65-5.03); Red Cell Distribution Width 12.9 % (13.2-15.2)
[2019-07-25 17:57] VITALS: BP 107/59
[2019-07-25 18:02] LABS: BUN/Creatinine Ratio 10; Blood Urea Nitrogen 10 mg/dL (9-20); Calcium 8.6 mg/dL (8.4-10.2); Hemolysis Index 15
[2019-07-25] MEDS ORDERED: POTASSIUM CHLORIDE ER 20 MEQ TAB PO ONE (18:17)
== END 2019-07-25 18:35 | disposition home or self-care (01) ==
LOC: ED 13:44
DX: E11.65 Type 2 diabetes mellitus with hyperglycemia (principal); R07.9 Chest pain, unspecified; I11.0 Hypertensive heart disease with heart failure; I50.9 Heart failure, unspecified; I25.2 Old myocardial infarction; J44.9 Chronic obstructive pulmonary disease, unspecified; Z90.49 Acquired absence of other specified parts of digestive tract; Z79.899 Other long term (current) drug therapy; Z95.5 Presence of coronary angioplasty implant and graft; Z86.73 Personal history of transient ischemic attack (TIA), and cerebral infarction without residual deficits; Z98.890 Other specified postprocedural states
CPT/HCPCS: 36415; 71045; 80048; 82550; 82962; 83735; 84484; 85027; 85610; 93005; 96361; 96374; 99284; J7030; J1815

== ENCOUNTER 2019-08-09 09:58 | Emergency (ER) | payer SELFPAY ==
[2019-08-09 10:46] LABS: Bacteria,Urine 3+ /HPF (Negative); Bilirubin,Urine NEG (Negative); Blood,Urine NEG (Negative); Color,Urine Yellow (Yellow); Mucus,Urine FEW /HPF; Protein,Urine <15 mg/dL mg/dL (Negative); Urobilinogen,Urine < 2.0 mg/dL (<2.0)
--- NOTE | 2019-08-09 10:48 | Emergency Department Report ---
<ERIN AGUSTIN - Last Filed: 08/09/19 12:09> ED Trauma HPI - General Chief Complaint: Psych Stated Complaint: SI/BODY PAIN Time Seen by Provider: 08/09/19 10:21 - History of Present Illness Allergies/Adverse Reactions: Allergies No Known Allergies Allergy (Verified 01/24/18 08:29) Home Medications: Ambulatory Orders Cyclobenzaprine [Flexeril 10 MG TAB] 10 mg PO TID PRN #30 tablet 02/07/18 Ondansetron [Zofran ODT TAB] 4 mg PO Q8HR PRN #20 tab.rapdis 04/01/18 Promethazine [Phenergan] 25 mg PO Q6HR PRN #20 tab 04/01/18 levETIRAcetam [Keppra TAB] 500 mg PO BID #60 tablet 10/31/18 Acetaminophen [Acetaminophen TAB] 500 mg PO Q4HR PRN #30 tablet 07/25/19 Aspirin [Aspirin BABY CHEW TAB] 81 mg PO QDAY #30 tab.chew 07/25/19 Insulin Aspart Prot/Aspart(Nf) [NovoLOG Mix 70/30 VIAL] 18 units SQ BID #1 vial 07/25/19 Quetiapine Fumarate [SEROquel] 50 mg PO BID #60 tab 08/13/19 traZODone [Desyrel] 100 mg PO QHS #30 tablet 08/13/19 ED Past Medical Hx - Medications Home Medications: Home Medications Medication Instructions Recorded Confirmed Last Taken Type Cyclobenzaprine [Flexeril 10 MG 10 mg PO TID PRN #30 tablet 02/07/18 10/31/18 10/29/18 Rx TAB] Ondansetron [Zofran ODT TAB] 4 mg PO Q8HR PRN #20 tab.rapdis 04/01/18 10/31/18 10/29/18 Rx Promethazine [Phenergan] 25 mg PO Q6HR PRN #20 tab 04/01/18 10/31/18 10/29/18 Rx levETIRAcetam [Keppra TAB] 500 mg PO BID #60 tablet 10/31/18 Unknown Rx Acetaminophen [Acetaminophen TAB] 500 mg PO Q4HR PRN #30 tablet 07/25/19 Unknown Rx Aspirin [Aspirin BABY CHEW TAB] 81 mg PO QDAY #30 tab.chew 07/25/19 Unknown Rx Insulin Aspart Prot/Aspart(Nf) 18 units SQ BID #1 vial 07/25/19 Unknown Rx [NovoLOG Mix 70/30 VIAL] Quetiapine Fumarate [SEROquel] 50 mg PO BID #60 tab 08/13/19 Unknown Rx traZODone [Desyrel] 100 mg PO QHS #30 tablet 08/13/19 Unknown Rx ED Medical Decision Making - Radiology Data [facility] [address] [place] [address] Cat Scan Report Signed Patient: RACHELLE SANTOS MR#: [id number] : 1965 Acct:[id number] Age/Sex: 54 / M ADM Date: 08/09/19 Loc: ED Attending Dr: Ordering Physician: TOSHA VERDUZCO Date of Service: 08/09/19 Procedure(s): CT head/brain wo con Accession Number(s): [id number] cc: TOSHA VERDUZCO CT HEAD WITHOUT CONTRAST INDICATION / CLINICAL INFORMATION: MAIN: head injury fall 12 feet pt in w/c and walking behavioral allison. TECHNIQUE: Axial imaging performed from the skull apex through the skull base without the use of contrast. Sagittal and coronal reformatted images. All CT scans at this location are performed using CT dose reduction for ALARA by means of automated exposure control. COMPARISON: 10/30/2018 FINDINGS: CEREBRAL PARENCHYMA: No significant abnormality. No acute territorial infarct. HEMORRHAGE: None. EXTRA-AXIAL SPACES: Normal in size and morphology for the patient's age. VENTRICULAR SYSTEM: Normal in size and morphology for the patient's age. MIDLINE SHIFT OR HERNIATION: None. CEREBELLUM / BRAINSTEM: No significant abnormality. CALVARIUM: No significant abnormality. ORBITS: Normal as visualized. PARANASAL SINUSES / MASTOID AIR CELLS: Normal as visualized. SOFT TISSUES of HEAD: No significant abnormality. ADDITIONAL FINDINGS: None. IMPRESSION: No acute intracranial abnormality. Signer Name: Krunal Calvillo Jr, MD Signed: 08/09/2019 11:34 AM Workstation Name: [id number] ED Disposition Clinical Impression: Suicide attempt, Head injury, Neck injury, Contusion, Cocaine use, Diabetes, UTI (urinary tract infection), Medical clearance for psychiatric admission Disposition: TO HOME OR SELFCARE Condition: Stable Instructions: Diabetes Mellitus Type 2 in Adults (ED) Prescriptions: traZODone [Desyrel] 100 mg PO QHS #30 tablet Quetiapine Fumarate [SEROquel] 50 mg PO BID #60 tab Referrals: PRIMARY CARE, [Primary Care Provider] - 3-5 Days <TOSHA VERDUZCO - Last Filed: 08/09/19 12:57> ED Trauma HPI - History of Present Illness Initial Comments: Patient is 54 years old male with history of schizophrenia. Patient brought to the emergency room via EMS from home for evaluation of suicidal attempt. Patient stated that he is hearing voices asking him to kill himself. Patient stated that he jumped off a bridge yesterday evening. He stated that approximately 12 feet fall. He stated that he fell in the grass and rock. Patient is complaining of headache, neck pain, back pain abdominal pain, bilateral knee pain and bilateral ankle pain. Patient stated that he is not sure if he passed out or not. He stated that 5 men carried him to his car and then he went home. He stated that his family member called the ambulance to bring him to the ER for evaluation. Patient denied homicidal ideation. He admitted to auditory hallucination but no visual hallucination. Occurred: yesterday Severity: moderate Pain Location: head, neck, abdomen, back, lower extremity Method of Injury: fall Loss of Consciousness: unsure ED Review of Systems Comment: All other systems reviewed and negative Constitutional: denies: chills, fever Respiratory: denies: cough, shortness of breath, SOB with exertion Cardiovascular: denies: chest pain Gastrointestinal: abdominal pain Musculoskeletal: back pain Neurological: headache. denies: weakness, numbness, paresthesias, confusion, abnormal gait Psychiatric: depression, auditory hallucinations, suicidal thoughts. denies: visual hallucinations, homicidal thoughts ED Past Medical Hx - Past Medical History Hx Hypertension: Yes Hx CVA: Yes Hx Heart Attack/AMI: Yes Hx Congestive Heart Failure: Yes Hx Diabetes: Yes Hx Renal Disease: Yes Hx Asthma: No Hx COPD: Yes Hx HIV: No Additional medical history: BPH - indwelling catherter - Surgical History Hx Coronary Stent: Yes Hx Pacemaker: Yes Hx Internal Defibrillator: Yes Hx Appendectomy: Yes Additional Surgical History: HERNIA SURGERY, Pacemaker - Social History Smoking Status: Never Smoker Substance Use Type: None ED Physical Exam - General Limitations: No Limitations General appearance: alert, in no apparent distress - Head Head exam: Present: atraumatic, normocephalic, normal inspection - Eye Eye exam: Present: normal appearance, PERRL - ENT ENT exam: Present: normal exam, normal orophraynx, mucous membranes moist - Neck Neck exam: Present: normal inspection, full ROM. Absent: tenderness, meningismu s, lymphadenopathy, thyromegaly - Respiratory Respiratory exam: Present: normal lung sounds bilaterally - Cardiovascular Cardiovascular Exam: Present: regular rate, normal rhythm, normal heart sounds - GI/Abdominal GI/Abdominal exam: Present: soft, normal bowel sounds. Absent: distended, tenderness, guarding, rebound, rigid, organomegaly, mass, bruit, pulsatile mass, hernia - Extremities Exam Extremities exam: Present: normal inspection, full ROM, normal capillary refill. Absent: tenderness, pedal edema, joint swelling, calf tenderness - Back Exam Back exam: Present: normal inspection, full ROM, tenderness. Absent: CVA tenderness (R), CVA tenderness (L), muscle spasm - Neurological Exam Neurological exam: Present: alert, oriented X3, CN II-XII intact. Absent: motor sensory deficit - Psychiatric Psychiatric exam: Present: depressed, suicidal ideation. Absent: agitated, anxious, flat affect, manic, homicidal ideation - Skin Skin exam: Present: warm, intact, normal color ED Medical Decision Making - Medical Decision Making Patient is 54 years old male with history of schizophrenia. Patient brought to the emergency room via EMS from home for evaluation of suicidal attempt. Patient stated that he is hearing voices asking him to kill himself. Patient stated that he jumped off a bridge yesterday evening. He stated that approximately 12 feet fall. He stated that he fell in the grass and rock. Patient is complaining of headache, neck pain, back pain abdominal pain, bilateral knee pain and bilateral ankle pain. Patient stated that he is not sure if he passed out or not. He stated that 5 men carried him to his car and then he went home. He stated that his family member called the ambulance to bring him to the ER for evaluation. Patient denied homicidal ideation. He admitted to auditory hallucination but no visual hallucination. EKG is unremarkable. Labs reviewed and is unremarkable. CT brain, CT cervical spine, CT thoracic spine, CT lumbar spine CT abdomen and pelvis all negative for traumatic injury or any acute finding. Patient is medically cleared to be evaluated by mental health for further management. <CONCHISMAEGANROYER C - Last Filed: 08/13/19 16:52> ED Trauma HPI - General Source: old records ED Review of Systems ROS: Stated complaint: SI/BODY PAIN Other details as noted in HPI ED Course Vital Signs 08/09/19 08/09/19 08/09/19 10:24 12:00 12:22 Temperature 97.5 F L Pulse Rate 99 H 92 H Respiratory 20 14 14 Rate Blood Pressure 112/65 Blood Pressure 115/78 [Left] Blood Pressure [Right] O2 Sat by Pulse 98 98 98 Oximetry 08/09/19 08/09/19 08/09/19 13:00 14:00 15:00 Temperature Pulse Rate 95 H 105 H 93 H Respiratory 14 14 14 Rate Blood Pressure 100/62 96/56 105/64 Blood Pressure [Left] Blood Pressure [Right] O2 Sat by Pulse 95 99 96 Oximetry 08/09/19 08/09/19 08/09/19 16:00 17:00 18:00 Temperature Pulse Rate 98 H 94 H 97 H Respiratory 15 15 16 Rate Blood Pressure 111/68 114/66 103/63 Blood Pressure [Left] Blood Pressure [Right] O2 Sat by Pulse 96 96 97 Oximetry 08/09/19 08/10/19 08/10/19 19:42 02:14 19:25 Temperature 100.9 F H 99.0 F 98.8 F Pulse Rate 95 H 72 107 H Respiratory 18 18 18 Rate Blood Pressure 118/72 Blood Pressure 120/70 110/62 [Left] Blood Pressure [Right] O2 Sat by Pulse 96 100 99 Oximetry 08/11/19 08/11/19 08/11/19 01:30 07:30 08:43 Temperature 98.1 F 97.8 F Pulse Rate 89 74 Respiratory 18 18 18 Rate Blood Pressure Blood Pressure 102/59 91/54 [Left] Blood Pressure [Right] O2 Sat by Pulse 96 98 98 Oximetry 08/11/19 08/11/19 08/11/19 10:27 10:30 11:43 Temperature 97.8 F Pulse Rate 95 H 82 Respiratory 18 20 Rate Blood Pressure Blood Pressure 79/51 84/50 [Left] Blood Pressure 89/51 88/52 111/64 [Right] O2 Sat by Pulse 100 100 Oximetry 05/10/2308/11/19 08/12/19 14:23 22:33 01:35 Temperature 97.8 F 97.8 F Pulse Rate 91 H 86 79 Respiratory 20 16 18 Rate Blood Pressure 94/57 Blood Pressure 100/53 [Left] Blood Pressure 112/73 [Right] O2 Sat by Pulse 99 98 98 Oximetry 08/12/19 08/12/19 08/12/19 07:32 08:05 22:21 Temperature 97.8 F 97.8 F Pulse Rate 92 H 83 Respiratory 20 20 16 Rate Blood Pressure Blood Pressure [Left] Blood Pressure 98/60 107/71 [Right] O2 Sat by Pulse 100 100 98 Oximetry - Reevaluation(s) Reevaluation #1: I Was informed by RN the patient was hypotension upon manual blood pressure check. I reassess patient at this time. He does not have any specific complaints and is actively eating a banana during my evaluation. He does complain of generalized abdominal tenderness when I palpate his abdomen. Patient states he had episode of hematemesis several days ago but none since. He does not endorse melena or hematochezia. UA shows nitrite positive urine with bacteria. IV Rocephin ordered. As per medical record review patient was recently admitted for chest pain June 1999 and hypotension and had in-house evaluation. Procedure results during that admission include chest x-ray; no acute findings, CTA chest; no PE, no acute findings, Echocardiogram; EF 50 to 55% no ASD, Stress test; no ischemia LVEF 54%. On this admission patient received extensive imaging due to complaint of jumping off a bridge a day before presenting to the ED. IV fluids and repeat CBC ordered and patient be will be reassessed. Patient is also currently receiving Seroquel in the ED which may also cause hypotension 08/11/19 11:26 wbc and h/h stable without clinical signs of bleeding or infection other than nitrite positive urine 08/11/19 11:45 Repeat vital signs revealed improved blood pressure after 1 L normal saline. ED Medical Decision Making - Lab Data Result diagrams: 08/11/19 10:51 08/09/19 18:40 - Medical Decision Making Patient did have some mild hypotension. He was asymptomatic. Repeat hemoglobin was normal. Patient will be covered with antibiotic given that he is a diabetic and has nitrite positive urine with bacteria. 1 dose of Rocephin given in the ED. Macrobid will be continued. It is also noted that Seroquel may also cause hypotension. Critical care attestation.: If time is entered above; I have spent that time in minutes in the direct care of this critically ill patient, excluding procedure time. ED Disposition Is pt being admited?: No
[2019-08-09 10:56] LABS: Amphetamine Screen,Urine PRESUMPTIVE NEGATIVE; Benzodiazepines Screen,Urine PRESUMPTIVE NEGATIVE; Cannabinoid Screen,Urine PRESUMPTIVE NEGATIVE; Methadone Screen,Urine PRESUMPTIVE NEGATIVE; Opiate Screen,Urine PRESUMPTIVE NEGATIVE
[2019-08-09 11:09] LABS: Cocaine Screen,Urine PRESUMPTIVE POSITIVE
--- NOTE | 2019-08-09 11:38 | Cat Scan Report ---
CT HEAD WITHOUT CONTRAST INDICATION / CLINICAL INFORMATION: MAIN: head injury fall 12 feet pt in w/c and walking behavioral allison. TECHNIQUE: Axial imaging performed from the skull apex through the skull base without the use of cont rast. Sagittal and coronal reformatted images. All CT scans at this location are performed using CT dose reduction for ALARA by means of automated exposure control. COMPARISON: 10/30/2018 FINDINGS: CEREBRAL PARENCHYMA: No significant abnormality. No acute territorial infarct. HEMORRHAGE: None. EXTRA-AXIAL SPACES: Normal in size and morphology for the patient's age. VENTRICULAR SYSTEM: Normal in size and morphology for the patient's age. MIDLINE SHIFT OR HERNIATION: None. CEREBELLUM / BRAINSTEM: No significant abnormality. CALVARIUM: No significant abnormality. ORBITS: Normal as visualized. PARANASAL SINUSES / MASTOID AIR CELLS: Normal as visualized. SOFT TISSUES of HEAD: No significant abnormality. ADDITIONAL FINDINGS: None. IMPRESSION: No acute intracranial abnormality. Signer Name: Krunal Calvillo Jr, MD Signed: 08/09/2019 11:34 AM Workstation Name: [id number]
--- NOTE | 2019-08-09 11:45 | XRay Report ---
XR knee BILAT 3V INDICATION / CLINICAL INFORMATION: Bilateral knee pain. COMPARISON: None available. FINDINGS: BONES/JOINT(S): No acute fracture or subluxation. No significant degenerative changes. No significant joint effusion. SOFT TISSUES: No significant abnormality. ADDITIONAL FINDINGS: None. Signer Name: Jean Paul Simon MD Signed: 08/09/2019 11:41 AM Workstation Name: [id number]
--- NOTE | 2019-08-09 11:46 | XRay Report ---
XR ankle BILAT 3+V INDICATION / CLINICAL INFORMATION: Bilateral ankle pain after fall. COMPARISON: None available. FINDINGS: BONES/JOINT(S): No acute fracture or subluxation. No significant degenerative changes. Old healed inj ury of the distal left tibiofibular syndesmosis with associated heterotopic ossification. SOFT TISSUES: No significant abnormality. ADDITIONAL FINDINGS: None. Signer Name: Jean Paul Simon MD Signed: 08/09/2019 11:42 AM Workstation Name: [id number]
--- NOTE | 2019-08-09 12:14 | Cat Scan Report ---
CT CERVICAL SPINE WITHOUT CONTRAST INDICATION: NECK INJURY. TECHNIQUE: Axial imaging performed through the cervical spine without the use of contrast. Sagittal and coronal reconstructed images were also reviewed. All CT scans at this location are performed us ing CT dose reduction for ALARA by means of automated exposure control. COMPARISON: None FINDINGS: Alignment: Spinal alignment is normal. Bones: There is no acute osseous abnormality. Mild degenerative disc disease is identified at C4-5 and C6-7. The remaining levels are within normal limits. Soft tissues: No acute or significant incidental soft tissue abnormality. IMPRESSION: No evidence for acute injury. Mild cervical spondylosis as described. Signer Name: Krunal Calvillo Jr, MD Signed: 08/09/2019 12:09 PM Workstation Name: [id number]
--- NOTE | 2019-08-09 12:16 | Cat Scan Report ---
CT THORACIC SPINE WITHOUT CONTRAST INDICATION: MAIN: Back pain, status post 12 feet fall. BEST IMAGES POSSIBLE. TECHNIQUE: Axial imaging performed through the thoracic spine without the use of contrast. Sagittal and coronal reconstructed images were also reviewed. All CT scans at this location are performed us ing CT dose reduction for ALARA by means of automated exposure control. COMPARISON: None FINDINGS: Alignment: Spinal alignment is normal. Bones: There is no acute osseous abnormality. Mild multilevel discogenic DJD is present. Soft tissues: No acute or significant incidental soft tissue abnormality. IMPRESSION: No acute abnormality. Mild thoracic spondylosis. Signer Name: Krunal Calvillo Jr, MD Signed: 08/09/2019 12:12 PM Workstation Name: [id number]
--- NOTE | 2019-08-09 12:18 | Cat Scan Report ---
CT ABDOMEN AND PELVIS WITHOUT CONTRAST HISTORY: ABDOMINAL PAIN/trauma. COMPARISON: CT abdomen/pelvis from 10/30/2018 TECHNIQUE: CT images of the abdomen and pelvis were obtained without administration of intravenous co ntrast. All CT scans at this location are performed using CT dose reduction for ALARA by means of au tomated exposure control. FINDINGS: Lungs/bones: Lung bases are clear. No acute osseous abnormality. Abdomen/pelvis: The liver, gallbladder, spleen, pancreas, adrenals, kidneys, and proximal GI tract u nremarkable. Urinary bladder is slightly distended but otherwise unremarkable. No pelvic free fluid. No acute colo denise abnormality. IMPRESSION: 1. No acute traumatic injury identified. Signer Name: Rd Vicente MD Signed: 08/09/2019 12:14 PM Workstation Name: [id number]
--- NOTE | 2019-08-09 12:39 | Cat Scan Report ---
CT LUMBAR SPINE WITHOUT CONTRAST INDICATION: Back pain, status post 12 feet fall.. TECHNIQUE: Axial imaging performed through the lumbar spine without the use of contrast. Sagittal a nd coronal reconstructed images were also reviewed. All CT scans at this location are performed usin g CT dose reduction for ALARA by means of automated exposure control. COMPARISON: None FINDINGS: Alignment: Spinal alignment is normal. Bones: There is no acute osseous abnormality. Mild degenerative disc disease is identified at L2-3 and L3-4. The facet joints are unremarkable. Soft tissues: No acute or significant incidental soft tissue abnormality. IMPRESSION: No acute abnormality. Mild lumbar spondylosis. Signer Name: Krunal Calvillo Jr, MD Signed: 08/09/2019 12:34 PM Workstation Name: [id number]
[2019-08-09 13:09] LABS: BUN/Creatinine Ratio 13; Blood Urea Nitrogen 13 mg/dL (9-20); Calcium 9.2 mg/dL (8.4-10.2); Hemolysis Index 7
[2019-08-09 13:43] LABS: Hematocrit 37.1 % (35.5-45.6); Hemoglobin 12.2 gm/dl (11.8-15.2); Mean Corpuscular HGB Conc 33 % (32-34); Mean Corpuscular Volume 86 fl (84-94); Platelet Count 360 K/mm3 (140-440); Red Blood Count 4.33 M/mm3 (3.65-5.03); Red Cell Distribution Width 13.5 % (13.2-15.2)
[2019-08-09] MEDS ORDERED: INSULIN REGULAR, HUMAN 100 UNITS/1 ML IV ONE (16:36)
[2019-08-09] MEDS ORDERED: SODIUM CHLORIDE 0.9% 1000 ML 1,000 ML IV ONE (16:36)
[2019-08-09 19:08] LABS: BUN/Creatinine Ratio 13; Blood Urea Nitrogen 14 mg/dL (9-20); Calcium 8.5 mg/dL (8.4-10.2); Hemolysis Index 46
--- NOTE | 2019-08-10 10:29 | Consultation ---
History of Present Illness - Reason for Consult Consult date: 08/10/19 Reason for consult: MHE Requesting physician: TOSHA VERDUZCO - Chief Complaint Chief complaint: SI with attempt - History of Present Psychiatric Illness Per ED Provider: Patient is 54 years old male with history of schizophrenia. Patient brought to the emergency room via EMS from home for evaluation of suicidal attempt. Patient stated that he is hearing voices asking him to kill himself. Patient stated that he jumped off a bridge yesterday evening. He stated that approximately 12 feet fall. He stated that he fell in the grass and rock. Patient is complaining of headache, neck pain, back pain abdominal pain, bilateral knee pain and bilateral ankle pain. Patient stated that he is not sure if he passed out or not. He stated that 5 men carried him to his car and then he went home. He stated that his family member called the ambulance to bring him to the ER for evaluation. Patient denied homicidal ideation. He admitted to auditory hallucination but no visual hallucination. Per MHA: Pt is a 54 yo AA male presenting to ED via EMS for SI with attempt. Pt reports umping off a 12 bridge into the [facility] yesterday, with attempts kill self. During ax, pt presents as depressed, with congruent affect and lucid thought process. Pt informed ticker wirer that tried to kill himself and that whenever he leaves from this hospital he is going to attempt again. Pt identified triggers of hearing voices tell him to kill himself all the time. Pt identified additional stress of his brother getting killed 2 years ago. Pt reports H/I towards everybody and became defensive when ticker wirer attempted to explore specifics. Pt reports a dx of Schizoaffective Disorder and non- compliance for the past 3 weeks. Pt reports homelessness, informing ticker wirer that he has been sleeping in a car for 6 months. Pt reported trying cocaine up his nose. Pt denied knowing frequency/quantity. Pt reports decline in appetite and inconsistency with sleep. Pysch HPI Patient is a 54 year old unemployed, homeless with Past Psychiatry History of Schizophrenia, Bipolar and Past Medical History of HTN, DM and CHF who presented to ER via EMS with complaints of SI with attempt after jumping of 12 ft bridge. Patient reports he has been hearing voices lately, for past 2 weeks telling him to kill self from people he does not know. Patient also endorses seeing black dots people. He describes his mood today as sad, and depressed. Also reports being traumatized by his brothers 2 years ago that he witnessed getting killed, and the constant flashbacks hunts him. Patient endorses active SI and HI towards just anybody. Patient admits to having racing thoughts, poor sleep but denies restlessness or irritation. Also admits to poor appetite. Patient admits to illicit drug use, mostly crack cocaine. He has also not been taking either of his medications for atleast 2-3 weeks due to financial reasons. PAST PSYCHIATRIC HISTORY Diagnoses: Schizophrenia, Bipolar Suicide attempts or Self-harm behavior Prior psychiatric hospitalizations Substance Abuse history: Previous psychiatric medications tried: Outpatient treatment: PAST MEDICAL HISTORY: HTN, CHF and DM. Family Psychiatric History None reported or documented SOCIAL HISTORY Marital Status: Single Living Arrangements: Homeless Employment Status: Unemployed Access to guns/weapons: None Education: GED History of Abuse: None reported Legal History: None reported REVIEW OF SYSTEMS Constitutional: Negative for weight loss ENT: Negative for stridor Respiratory: Negative for cough or hemoptysis All other systems reviewed and are negative MENTAL STATUS EXAMINATION General Appearance and Behavior: Age appropriate, fair hygiene, wearing appropriate clothes, lying in bed, poor eye contact, cooperative with questioning and polite Cooperation: Participating/engaged Psychomotor Behavior: unremarkable and within normal limits Mood: sad and depressed Affect and affective range:congruent with mood Thought Process: Fluent/Logical Thought Content: Within reality Speech: Normal volume, Regular rate and rhythm. Intellectual Functioning: Average Suicidal Ideation: Suicidal Homicidal Ideation: Homicidal Impulse Control: Unimpaired Insight and Judgment: Normal insight and judgment Memory: Normal Attention: Normal Orientation: Alert, oriented Assessment and Plan - Psychiatric problem (1) Cocaine use disorder, severe, dependence Current Visit: Yes Status: Acute (2) Substance induced mood disorder Current Visit: Yes Status: Acute (3) Major depressive disorder, recurrent, severe with psychotic features Current Visit: Yes Status: Acute (4) Schizoaffective disorder, bipolar type Current Visit: Yes Status: Acute RECOMMENDATIONS MEDICATIONS: Will restart home medications. Seroquel and trazadone to help with sleep at night and stimulate appetite. Risks, benefits and alternatives of medications discussed with the patient, questions answered and consent obtained from patient. PSYCHOTHERAPY: Supportive psychotherapy provided MEDICAL: Per primary team DELIRIUM PRECAUTIONS: Please re-orient patient frequently, keep lights on during the day, and minimize benzodiazepines and opiates as these medications could worsen patient's confusion. 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 Please contact with any questions and/or concerns. Medications and Allergies Allergies Allergy/AdvReac Type Severity Reaction Status Date / Time No Known Allergies Allergy Verified 01/24/18 08:29 Home Medications Medication Instructions Recorded Confirmed Last Taken Type Cyclobenzaprine [Flexeril 10 MG 10 mg PO TID PRN #30 tablet 02/07/18 10/31/18 10/29/18 Rx TAB] Ondansetron [Zofran ODT TAB] 4 mg PO Q8HR PRN #20 tab.rapdis 04/01/18 10/31/18 10/29/18 Rx Promethazine [Phenergan] 25 mg PO Q6HR PRN #20 tab 04/01/18 10/31/18 10/29/18 Rx levETIRAcetam [Keppra TAB] 500 mg PO BID #60 tablet 10/31/18 Unknown Rx Acetaminophen [Acetaminophen TAB] 500 mg PO Q4HR PRN #30 tablet 07/25/19 Unknown Rx Aspirin [Aspirin BABY CHEW TAB] 81 mg PO QDAY #30 tab.chew 07/25/19 Unknown Rx Insulin Aspart Prot/Aspart(Nf) 18 units SQ BID #1 vial 07/25/19 Unknown Rx [NovoLOG Mix 70/30 VIAL] Active Meds: Active Medications Melatonin (Melatonin) 5 mg PO QHS PRN PRN Reason: Sleep Quetiapine Fumarate (Seroquel) 25 mg PO BID [facility] Trazodone HCl (Desyrel) 50 mg PO [facility] Mental Status Exam - Vital signs Last Vital Signs Temp 99.0 F 08/10/19 02:14 Pulse 72 08/10/19 02:14 Resp 18 08/10/19 02:14 BP 120/70 08/10/19 02:14 Pulse Ox 100 08/10/19 02:14 Results Result Diagrams: 08/09/19 13:08 08/09/19 18:40 Abnormal lab results 08/09/19 08/09/19 08/09/19 Range/Units 11:52 11:52 12:20 Sodium 129 L (137-145) mmol/L Chloride 92.4 L (98-107) mmol/L Carbon Dioxide 21 L (22-30) mmol/L Glucose 418 H (75-100) mg/dL POC Glucose (70-105) Salicylates < 0.3 L (2.8-20.0) mg/dL Acetaminophen < 5.0 L (10.0-30.0) ug/mL 08/09/19 08/09/19 08/10/19 Range/Units 16:55 18:40 08:43 Sodium (137-145) mmol/L Chloride (98-107) mmol/L Carbon Dioxide (22-30) mmol/L Glucose 298 H (75-100) mg/dL POC Glucose 435 H 347 H (70-105) Salicylates (2.8-20.0) mg/dL Acetaminophen (10.0-30.0) ug/mL All other labs normal. Assessment and Plan - Psychiatric problem (1) Cocaine use disorder, severe, dependence Current Visit: Yes Status: Acute (2) Substance induced mood disorder Current Visit: Yes Status: Acute (3) Major depressive disorder, recurrent, severe with psychotic features Current Visit: Yes Status: Acute (4) Schizoaffective disorder, bipolar type Current Visit: Yes Status: Acute
[2019-08-10] MEDS: QUEtiapine 25 MG TAB PO SCH ×2 (11:00→22:00)
[2019-08-10] MEDS ORDERED: DEXTROSE 50% IN WATER (25GM) 50 ML SYRINGE IV PRN (16:43)
[2019-08-10] MEDS ORDERED: SODIUM CHLORIDE 0.9% 1000 ML 1,000 ML ONE (21:35)
[2019-08-10] MEDS ORDERED: INSULIN REGULAR, HUMAN 100 UNITS/1 ML IV ONE (21:55)
[2019-08-10] MEDS ORDERED: SODIUM CHLORIDE 0.9% 1000 ML 1,000 ML IV ONE (21:55)
[2019-08-10] MEDS: traZODone 50 MG TAB PO SCH (22:00)
[2019-08-10] MEDS: INSULIN REGULAR, HUMAN 100 UNITS/1 ML SUB-Q SCH (22:00)
[2019-08-11] MEDS: INSULIN REGULAR, HUMAN 100 UNITS/1 ML SUB-Q SCH ×3 (07:31→17:12)
--- NOTE | 2019-08-11 09:18 | Progress Note ---
Subjective - Reason for Consult Consult date: 08/11/19 Reason for consult: MHE Requesting physician: TOSHA VERDUZCO - Chief Complaint Chief complaint: Per Ed Nurse Note: 1630 pt resting quietly on recliner, resp even and non l abored, no acute distress noted, no s/s of self harm, ambulates as needed to restroom, able to make needs known. Psych Progress Note: Patient evaluated this A.M. Reports improvement in mood, denies Suicidal ideation and homicidal ideation. Improved appetite and sleep. Says medication seems to be working and has been compliant taking his meds. Says the voices are gone, No AVH. MENTAL STATUS EXAMINATION General Appearance and Behavior: Age appropriate, fair hygiene, wearing appropriate clothes, lying in bed, good eye contact, cooperative with questioning and polite Cooperation: Participating/engaged Psychomotor Behavior: unremarkable and within normal limits Mood: "I feel better" Affect and affective range:congruent with mood Thought Process: Fluent/Logical Thought Content: Within reality Speech: Normal volume, Regular rate and rhythm. Intellectual Functioning: Average Suicidal Ideation: Passive Homicidal Ideation: Passive Impulse Control: Unimpaired Insight and Judgment: Normal insight and judgment Memory: Normal Attention: Normal Orientation: Alert, oriented Assessment and Plan - Psychiatric problem (1) Cocaine use disorder, severe, dependence Current Visit: Yes Status: Acute (2) Substance induced mood disorder Current Visit: Yes Status: Acute (3) Major depressive disorder, recurrent, severe with psychotic features Current Visit: Yes Status: Acute (4) Schizoaffective disorder, bipolar type Current Visit: Yes Status: Acute RECOMMENDATIONS MEDICATIONS: Continue current medications. Seroquel and trazadone to help with sleep at night and stimulate appetite. Risks, benefits and alternatives of medications discussed with the patient, questions answered and consent obtained from patient. PSYCHOTHERAPY: Supportive psychotherapy provided MEDICAL: Per primary team DELIRIUM PRECAUTIONS: Please re-orient patient frequently, keep lights on during the day, and minimize benzodiazepines and opiates as these medications could worsen patient's confusion. 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 Please contact with any questions and/or concerns. Mental Status Exam - Vital signs Last Vital Signs Temp 97.8 F 08/11/19 07:30 Pulse 74 08/11/19 07:30 Resp 18 08/11/19 08:43 BP 91/54 08/11/19 07:30 Pulse Ox 98 08/11/19 08:43 Assessment and Plan - Patient Problems (1) Cocaine use disorder, severe, dependence Current Visit: Yes Status: Acute (2) Substance induced mood disorder Current Visit: Yes Status: Acute (3) Major depressive disorder, recurrent, severe with psychotic features Current Visit: Yes Status: Acute (4) Schizoaffective disorder, bipolar type Current Visit: Yes Status: Acute
[2019-08-11] MEDS ORDERED: SODIUM CHLORIDE 0.9% 1000 ML 1,000 ML IV ONE (10:41)
[2019-08-11] MEDS: QUEtiapine 25 MG TAB PO SCH ×2 (10:42→21:52)
[2019-08-11] MEDS ORDERED: SODIUM CHLORIDE 0.9% 1000 ML 1,000 ML ONE (10:42)
[2019-08-11] MEDS ORDERED: cefTRIAXone/NS 1 GM/50 ML 1 GM/50 ML BAG IV ONE (10:45)
[2019-08-11 11:15] LABS: Basophils % (Auto) 0.3 % (0.0-1.8); Eosinophils % (Auto) 0.5 % (0.0-4.3); Hemoglobin 12.8 gm/dl (11.8-15.2); Lymphocytes # (Auto) 1.1 K/mm3 (1.2-5.4); Lymphocytes % (Auto) 27.3 % (13.4-35.0); Mean Corpuscular HGB Conc 33 % (32-34); Mean Corpuscular Volume 87 fl (84-94); Monocytes # (Auto) 0.6 K/mm3 (0.0-0.8); Monocytes % (Auto) 14.8 % (0.0-7.3); Platelet Count 313 K/mm3 (140-440); Red Cell Distribution Width 13.8 % (13.2-15.2)
[2019-08-11] MEDS: NITROFURANTOIN MONOHYD/M-CRYST 100 MG CAP PO SCH ×2 (12:01→21:55)
[2019-08-11] MEDS: traZODone 50 MG TAB PO SCH (21:50)
[2019-08-12] MEDS: MELATONIN 5 MG TAB PO PRN ×2 (00:02→22:18)
[2019-08-12] MEDS ORDERED: INSULIN REGULAR, HUMAN 100 UNITS/1 ML SUB-Q ONE (00:27)
[2019-08-12] MEDS: INSULIN REGULAR, HUMAN 100 UNITS/1 ML SUB-Q SCH ×5 (00:28→22:32)
[2019-08-12 07:33] VITALS: BP 98/60
[2019-08-12] MEDS: QUEtiapine 25 MG TAB PO SCH ×2 (10:11→22:18)
[2019-08-12] MEDS: NITROFURANTOIN MONOHYD/M-CRYST 100 MG CAP PO SCH ×2 (10:11→22:17)
--- NOTE | 2019-08-12 14:31 | Progress Note ---
Subjective - Reason for Consult Consult date: 08/12/19 Reason for consult: SI with attempt - Chief Complaint Chief complaint: The patient's medical record was reviewed and the patient's progress was discussed with the nursing staff. During my interview with the patient this morning the patient states he was brought to the hospital because he "fell off a bridge." He is a/o x 3. He makes good eye contact. He is not forthcoming. When asking the patient if he fell or actually jumped off the bridge, he first says, "I slipped or I fell." He then says, "I jumped, I had so much going on." The patient says he "was off of my medications." He currently denies SI/HI at present. He says he was hearing voices telling him to "hurt someone or hurt myself." He says, "not that I'm back on my meds I feel okay." He then states, "I feel terrific." The patient says he had been doing "crack cocaine." He states to me "I'm ready to get back to work. To the little job I have." The patient says he "hasn't been sleeping." He say he's "just been laying there." He says his appetite is "on and off." REVIEW OF SYSTEMS Constitutional: Negative for weight loss ENT: Negative for stridor Respiratory: Negative for cough or hemoptysis All other systems reviewed and are negative MENTAL STATUS EXAMINATION General Appearance: Dressed appropriately Behavior: Calm, cooperative. Mood: "terrificl" Affect: Restricted Speech: Normal tone and pace Thought Process: Goal directed Thought Content: Suicidal Ideation: Denies Homicidal Ideation: Denies Hallucinations: Denies Delusions: None elicited Insight and Judgment: Limited Memory/Cognition: Limited Assessment and Plan Cocaine use disorder, severe, dependence Substance induced mood disorder Schizoaffective disorder, bipolar type Plan MEDICATIONS: Increased Seroquel 50mg po BID Increased Trazodone 100mg po qhs to induce sleep Geodon 20mg IM q4h prn agitation Risks, benefits and alternatives of medications discussed with the patient, questions answered and consent obtained from patient. PSYCHOTHERAPY: Supportive psychotherapy provided MEDICAL: Per primary team DELIRIUM PRECAUTIONS: Please re-orient patient frequently, keep lights on during the day, and minimize benzodiazepines and opiates as these medications could worsen patient's confusion. 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 DISPOSITION: The patient meets the requirement for acute inpatient psychiatric hospitalization at this time. He may transfer to an acute psychiatric facility once medically clear. Will consider discharging the patient tomorrow depending on progress overnight. The treatment plan was explained to the patient. He verbalizes understanding and agreement of plan. Will continue to follow until the patient is transferred or his condition improves enough for discharge Thank you for the consult. Please contact with any questions or concerns. Mental Status Exam - Vital signs Last Vital Signs Temp 97.8 F 08/12/19 07:32 Pulse 92 H 08/12/19 07:32 Resp 20 08/12/19 08:05 BP 98/60 08/12/19 07:32 Pulse Ox 100 08/12/19 08:05
[2019-08-12] MEDS ORDERED: ZIPRASIDONE MESYLATE 20 MG VIAL IM PRN (14:42)
[2019-08-12] MEDS ORDERED: traZODone 100 MG TAB PO SCH (22:00)
[2019-08-13] MEDS ORDERED: INSULIN REGULAR, HUMAN 100 UNITS/1 ML SUB-Q ONE (02:17)
[2019-08-13] MEDS: INSULIN REGULAR, HUMAN 100 UNITS/1 ML SUB-Q SCH (09:21)
--- NOTE | 2019-08-13 09:43 | Progress Note ---
Subjective - Reason for Consult Consult date: 08/13/19 Reason for consult: SI - Chief Complaint Chief complaint: The patient's medical record was reviewed and the patient's progress was discussed with the nursing staff. During my interview with the patient this morning he is awake. A/O x 3. He is dressed appropriately. He is calm and cooperative. He tells me he was "a little upset that he didn't go home yesterday." The patient denies SI/HI or any fee lings of endangerment. He says, "I think I lost my job but I need to get out and check on it. Ma'am I'm not suicidal. I told you that yesterday." The patient says his mood is "way better." He says he slept "good" and his appetite is "good." He apologizes for being upset with me about not going home yesterday. REVIEW OF SYSTEMS Constitutional: Negative for weight loss ENT: Negative for stridor Respiratory: Negative for cough or hemoptysis All other systems reviewed and are negative MENTAL STATUS EXAMINATION General Appearance: Dressed appropriately Behavior: Calm, cooperative. Mood: "way better" Affect: congruent with stated mood Speech: Normal tone and pace Thought Process: Goal directed Thought Content: Suicidal Ideation: Denies Homicidal Ideation: Denies Hallucinations: Denies Delusions: None elicited Insight and Judgment: Limited Memory/Cognition: Limited Assessment and Plan Cocaine use disorder, severe, dependence Substance induced mood disorder Schizoaffective disorder, bipolar type Plan MEDICATIONS: Discontinue 1013 Seroquel 50mg po BID Trazodone 100mg po qhs to induce sleep Risks, benefits and alternatives of medications discussed with the patient, questions answered and consent obtained from patient. PSYCHOTHERAPY: Supportive psychotherapy provided MEDICAL: Per primary team DELIRIUM PRECAUTIONS: Please re-orient patient frequently, keep lights on during the day, and minimize benzodiazepines and opiates as these medications could worsen patient's confusion. 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 DISPOSITION: The patient does not meets the requirement for acute inpatient psychiatric hospitalization at this time. He may discharge home once medically clear. The treatment plan was explained to the patient, including benefits and side effects of medications. He verbalizes understanding and agreement of plan. The patient is to abstain from all illicit drug use and alcohol The patient understands that if suicidal thoughts or feelings of endangerment are to arise, the patient should seek immediate assistance including but not limited to crisis hotline, 911 or/and ER. The director corporate communications is to give the patient referrals for outpatient drug rehabilitation and resources to assist with medications The patient is to follow up with outpatient psych or primary in 7 to 14 days upon discharge Will sign off. Thank you for the consult. Please contact with any questions or concerns. Mental Status Exam - Vital signs Last Vital Signs Temp 97.8 F 08/12/19 22:21 Pulse 83 08/12/19 22:21 Resp 16 08/12/19 22:21 BP 107/71 08/12/19 22:21 Pulse Ox 98 08/12/19 22:21
[2019-08-13] MEDS: NITROFURANTOIN MONOHYD/M-CRYST 100 MG CAP PO SCH (10:34)
[2019-08-13] MEDS: QUEtiapine 25 MG TAB PO SCH (10:34)
== END 2019-08-13 11:02 | disposition home or self-care (01) ==
LOC: EEVIPCON 09:58 → ED 09:58
DX: T14.91XA Suicide attempt, initial encounter (principal); S09.90XA Unspecified injury of head, initial encounter; S19.9XXA Unspecified injury of neck, initial encounter; F14.10 Cocaine abuse, uncomplicated; E11.9 Type 2 diabetes mellitus without complications; N39.0 Urinary tract infection, site not specified; I10 Essential (primary) hypertension; I11.0 Hypertensive heart disease with heart failure; I50.9 Heart failure, unspecified; I25.2 Old myocardial infarction; J44.9 Chronic obstructive pulmonary disease, unspecified; Z04.6 Encounter for general psychiatric examination, requested by authority; Z79.4 Long term (current) use of insulin; Z79.899 Other long term (current) drug therapy; Z87.448 Personal history of other diseases of urinary system; Z86.73 Personal history of transient ischemic attack (TIA), and cerebral infarction without residual deficits; Z98.890 Other specified postprocedural states; Z90.49 Acquired absence of other specified parts of digestive tract; Y93.89 Activity, other specified; Y92.89 Other specified places as the place of occurrence of the external cause; Y99.8 Other external cause status
CPT/HCPCS: 36415; 70450; 72125; 72128; 72131; 73562; 73610; 74176; 80048; 80307; 81001; 82962; 84484; 85025; 93005; 96361; 96365; 96372; 96375; 99285; J0696; J7030; 80320; G0480; J1815

== ENCOUNTER 2019-08-29 21:56 | Emergency (ER) | payer SELFPAY ==
[2019-08-30] MEDS ORDERED: diphenhydrAMINE 50 MG/ML VIAL IM PRN (00:55)
[2019-08-30] MEDS ORDERED: LORazepam 2 MG/ML VIAL IM PRN (00:55)
[2019-08-30] MEDS ORDERED: HALOPERIDOL LACTATE 5 MG/1 ML INJ IM PRN (00:55)
--- NOTE | 2019-08-30 00:55 | Emergency Department Report ---
HPI - General Chief Complaint: Psych PUI?: No Time Seen by Provider: 08/30/19 00:43 - HPI HPI: Perez 11 The patient is a 54-year-old male present with a chief complaint of homicidal ideation. The patient states she is felt homicidal for the past 2 to 3 days. Patient denies suicidal ideation. Patient states he has had auditory hallucinations hearing different voices. Patient denies visual hallucinations ED Past Medical Hx - Past Medical History Previous Medical History?: Yes Hx Hypertension: Yes Hx CVA: Yes Hx Heart Attack/AMI: Yes (x 2 with stents) Hx Congestive Heart Failure: Yes Hx Diabetes: Yes Hx Renal Disease: Yes Hx COPD: Yes Additional medical history: BPH - indwelling catherter, Pacemaker - Surgical History Past Surgical History?: Yes Hx Coronary Stent: Yes Hx Pacemaker: Yes Hx Internal Defibrillator: Yes Hx Appendectomy: Yes Additional Surgical History: HERNIA SURGERY, Pacemaker - Family History Family history: no significant - Social History Smoking Status: Never Smoker Substance Use Type: None (Denies illicit drug use) - Medications Home Medications: Home Medications Medication Instructions Recorded Confirmed Last Taken Type Cyclobenzaprine [Flexeril 10 MG 10 mg PO TID PRN #30 tablet 02/07/18 10/31/18 10/29/18 Rx TAB] Ondansetron [Zofran ODT TAB] 4 mg PO Q8HR PRN #20 tab.rapdis 04/01/18 10/31/18 10/29/18 Rx Promethazine [Phenergan] 25 mg PO Q6HR PRN #20 tab 04/01/18 10/31/18 10/29/18 Rx levETIRAcetam [Keppra TAB] 500 mg PO BID #60 tablet 10/31/18 Unknown Rx Acetaminophen [Acetaminophen TAB] 500 mg PO Q4HR PRN #30 tablet 07/25/19 Unknown Rx Aspirin [Aspirin BABY CHEW TAB] 81 mg PO QDAY #30 tab.chew 07/25/19 Unknown Rx Insulin Aspart Prot/Aspart(Nf) 18 units SQ BID #1 vial 07/25/19 Unknown Rx [NovoLOG Mix 70/30 VIAL] Quetiapine Fumarate [SEROquel] 50 mg PO BID #60 tab 08/13/19 Unknown Rx traZODone [Desyrel] 100 mg PO QHS #30 tablet 08/13/19 Unknown Rx ED Review of Systems ROS: Stated complaint: MH/ HEARING VOICES Other details as noted in HPI Constitutional: no symptoms reported Respiratory: no symptoms reported Endocrine: no symptoms reported Psychiatric: auditory hallucinations, homicidal thoughts. denies: visual hallucinations, suicidal thoughts Physical Exam - Physical Exam Physical Exam: GENERAL: The patient is well-developed well-nourished male sitting in chair not appearing to be in acute distress. [] HEENT: Normocephalic. Atraumatic. Extraocular motions are intact. Patient has moist mucous membranes. NECK: Supple. Trachea midline CHEST/LUNGS: Clear to auscultation. There is no respiratory distress noted. HEART/CARDIOVASCULAR: Regular. There is no tachycardia. There is no gallop rub or murmur. ABDOMEN: Abdomen is soft, nontender. Patient has normal bowel sounds. There is no abdominal distention. SKIN: There is no rash. There is no edema. There is no diaphoresis. NEURO: The patient is awake, alert, and oriented. The patient is cooperative. The patient has normal speech MUSCULOSKELETAL: There is no evidence of acute injury. ED Medical Decision Making - Lab Data Result diagrams: 08/30/19 01:01 08/30/19 01:01 Laboratory Tests 08/30/19 08/30/19 08/30/19 01:01 01:01 01:01 WBC RBC Hgb Hct MCV MCH MCHC RDW Plt Count Lymph % (Auto) [place] % (Auto) Eos % (Auto) Baso % (Auto) Lymph # [place] # Eos # Baso # Seg Neutrophils % Seg Neutrophils # Sodium 136 L Potassium 4.0 Chloride 93.9 L Carbon Dioxide 26 Anion Gap 20 BUN 17 Creatinine 1.2 Estimated GFR > 60 BUN/Creatinine Ratio 14 Glucose 270 H Calcium 9.3 Salicylates < 0.3 L Acetaminophen 14.9 Plasma/Serum Alcohol 08/30/19 08/30/19 01:01 01:01 WBC 3.3 L RBC 4.23 Hgb 12.5 Hct 36.5 MCV 86 MCH 30 MCHC 34 RDW 15.5 H Plt Count 295 Lymph % (Auto) 49.3 H [place] % (Auto) 10.6 H Eos % (Auto) 0.9 Baso % (Auto) 0.8 Lymph # 1.6 [place] # 0.3 Eos # 0.0 Baso # 0.0 Seg Neutrophils % 38.4 L Seg Neutrophils # 1.3 L Sodium Potassium Chloride Carbon Dioxide Anion Gap BUN Creatinine Estimated GFR BUN/Creatinine Ratio Glucose Calcium Salicylates Acetaminophen Plasma/Serum Alcohol < 0.01 - Differential Diagnosis Homicidal ideation Critical care attestation.: If time is entered above; I have spent that time in minutes in the direct care of this critically ill patient, excluding procedure time. ED Disposition Clinical Impression: Homicidal ideation Disposition: [id number]/TX-[id number] PSY HOSP/PSY UNIT Is pt being admited?: No Does the pt Need Aspirin: No Condition: Stable Referrals: PRIMARY CARE, [Primary Care Provider] - 3-5 Days Time of Disposition: 04:43 (Awaiting acceptance)
[2019-08-30 01:28] LABS: Basophils % (Auto) 0.8 % (0.0-1.8); Eosinophils % (Auto) 0.9 % (0.0-4.3); Hematocrit 36.5 % (35.5-45.6); Hemoglobin 12.5 gm/dl (11.8-15.2); Lymphocytes # (Auto) 1.6 K/mm3 (1.2-5.4); Lymphocytes % (Auto) 49.3 % (13.4-35.0); Mean Corpuscular HGB Conc 34 % (32-34); Mean Corpuscular Volume 86 fl (84-94); Monocytes # (Auto) 0.3 K/mm3 (0.0-0.8); Monocytes % (Auto) 10.6 % (0.0-7.3); Platelet Count 295 K/mm3 (140-440); Red Blood Count 4.23 M/mm3 (3.65-5.03); Red Cell Distribution Width 15.5 % (13.2-15.2)
[2019-08-30 01:39] LABS: BUN/Creatinine Ratio 14; Blood Urea Nitrogen 17 mg/dL (9-20); Calcium 9.3 mg/dL (8.4-10.2); Hemolysis Index 5
[2019-08-30 08:01] VITALS: BP 97/68
[2019-08-30 10:16] LABS: Amphetamine Screen,Urine PRESUMPTIVE NEGATIVE; Benzodiazepines Screen,Urine PRESUMPTIVE NEGATIVE; Cannabinoid Screen,Urine PRESUMPTIVE NEGATIVE; Methadone Screen,Urine PRESUMPTIVE NEGATIVE; Opiate Screen,Urine PRESUMPTIVE NEGATIVE
[2019-08-30 10:34] LABS: Cocaine Screen,Urine PRESUMPTIVE POSITIVE
== END 2019-08-30 15:31 ==
LOC: ED 21:56
DX: R45.850 Homicidal ideations (principal)
CPT/HCPCS: 36415; 80048; 80307; 80320; 85025; G0480

== ENCOUNTER 2019-09-18 01:08 | Emergency (ER) | payer SELFPAY ==
[2019-09-18] MEDS ORDERED: ASPIRIN 325 MG TAB PO ONE (01:53)
[2019-09-18 01:58] VITALS: BP 113/65
--- NOTE | 2019-09-18 02:45 | XRay Report ---
CHEST 1 VIEW 09/18/2019 2:13 AM INDICATION / CLINICAL INFORMATION: Chest Pain. COMPARISON: Chest x-ray 09/08/2019 FINDINGS: SUPPORT DEVICES: Left subclavian pacemaker leads, unchanged. HEART / MEDIASTINUM: No significant abnormality. LUNGS / PLEURA: No significant pulmonary or pleural abnormality. No pneumothorax. ADDITIONAL FINDINGS: No significant additional findings. IMPRESSION: 1. No acute findings. Signer Name: Hola Byrnes MD Signed: 09/18/2019 2:40 AM Workstation Name: [employer]
[2019-09-18 03:25] LABS: BUN/Creatinine Ratio 11; Blood Urea Nitrogen 13 mg/dL (9-20); Calcium 9.3 mg/dL (8.4-10.2); Hemolysis Index 1
[2019-09-18 03:38] LABS: Basophils % (Auto) 0.5 % (0.0-1.8); Eosinophils # (Auto) 0.1 K/mm3 (0.0-0.4); Hemoglobin 13.3 gm/dl (11.8-15.2); Lymphocytes # (Auto) 1.4 K/mm3 (1.2-5.4); Lymphocytes % (Auto) 30.5 % (13.4-35.0); Monocytes # (Auto) 0.4 K/mm3 (0.0-0.8); Monocytes % (Auto) 8.4 % (0.0-7.3)
[2019-09-18 03:47] LABS: Hematocrit 40.3 % (35.5-45.6); Mean Corpuscular HGB Conc 33 % (32-34); Mean Corpuscular Volume 90 fl (84-94); Platelet Count 367 K/mm3 (140-440); Red Blood Count 4.48 M/mm3 (3.65-5.03); Red Cell Distribution Width 15.8 % (13.2-15.2)
--- NOTE | 2019-09-18 06:15 | Emergency Department Report ---
ED Chest Pain HPI - General Chief Complaint: Chest Pain Stated Complaint: CHEST PAIN Time Seen by Provider: 09/18/19 06:11 Source: patient, EMS Mode of arrival: Stretcher Limitations: No Limitations - History of Present Illness Initial Comments: 54-year-old man who I saw approximately 10 days ago and who is previously known to me. He has a history of cardiomyopathy and have scheduled crack cocaine use as well as psychiatric illness. On my encounter he states "I just need my Seroquel". Apparently he was brought to this facility complaining of chest pain. Although he did not have a urine drug screen obtained today, on multiple other occasions he has been positive for cocaine. He is not complaining of chest pain. He is not short of breath. He states he is ready to go home. As per his 09/08/2019 visit: - History of Present Illness Initial comments: This is a 54-year-old man that is previously known to this facility. His medic al screening note reads as follows: Patient is a 54-year-old gentleman brought to the hospital by emergency medical services with a complaint of alcohol intoxication, and a statement that his defibrillator fired. Of note, the patient has been evaluated at this hospital multiple times in the past. He has a history of diabetes, hyperglycemia, cocaine use, recently ruled out for pulmonary embolism, ejection fraction 54%, recent negative nuclear stress test, and as per review of old medical records, has a permanent pacemaker, but does not have an AICD because of ongoing drug use. He is resting comfortably in his stretcher with EMS, and in no acute distress. The patient is not providing any information to this provider. He is lethargic but can reasonably awaken. He is not verbal. His pupils are small. He is not following command. He is protecting his airway. I have instructed the nurses to give him essentially a test dose of naloxone. We will see if this has a therapeutic effect. His alcohol level is negligible; so this is not consistent with alcohol intoxication. We will proceed to a broader differential diagnosis of altered mental status if he does not respond to Narcan. It is not certain why the previous provider ordered a CT of the head and cervical spine. The indication noted is jerking movement movements. I may presume that the patient may have had a seizure. The CT of the head and cervical spine showed nothing acute. -: unknown MD Complaint: chest pain -: minutes(s) Onset: during rest Pain Location: right chest (States right chest, nonpleuritic) Pain Radiation: none Severity: mild Quality: sharp Consistency: now resolved Improves With: nothing Worsens With: nothing - Related Data Previous Rx's Medication Instructions Recorded Last Taken Type Cyclobenzaprine [Flexeril 10 MG 10 mg PO TID PRN #30 tablet 02/07/18 10/29/18 Rx TAB] Ondansetron [Zofran ODT TAB] 4 mg PO Q8HR PRN #20 tab.rapdis 04/01/18 10/29/18 Rx Promethazine [Phenergan] 25 mg PO Q6HR PRN #20 tab 04/01/18 10/29/18 Rx levETIRAcetam [Keppra TAB] 500 mg PO BID #60 tablet 10/31/18 Unknown Rx Acetaminophen [Acetaminophen TAB] 500 mg PO Q4HR PRN #30 tablet 07/25/19 Unknown Rx Aspirin [Aspirin BABY CHEW TAB] 81 mg PO QDAY #30 tab.chew 07/25/19 Unknown Rx Insulin Aspart Prot/Aspart(Nf) 18 units SQ BID #1 vial 07/25/19 Unknown Rx [NovoLOG Mix 70/30 VIAL] traZODone [Desyrel] 100 mg PO QHS #30 tablet 08/13/19 Unknown Rx Quetiapine Fumarate [SEROquel] 50 mg PO BID #60 tab 09/18/19 Unknown Rx Allergies Allergy/AdvReac Type Severity Reaction Status Date / Time No Known Allergies Allergy Verified 01/24/18 08:29 Heart Score - HEART Score History: Slightly suspicious EKG: Normal Age: < 45 Risk factors: 1-2 risk factors Troponin: < normal limit HEART Score: 1 - Critical Actions Critical Actions: 0-3 pts:0.9-1.7%risk of adverse cardiac event.Candidate for discharge ED Review of Systems ROS: Stated complaint: CHEST PAIN Other details as noted in HPI Constitutional: denies: chills, fever Eyes: denies: eye pain, eye discharge, vision change ENT: denies: ear pain, throat pain Respiratory: denies: cough, shortness of breath, wheezing Cardiovascular: as per HPI, chest pain. denies: palpitations Endocrine: no symptoms reported Gastrointestinal: denies: abdominal pain, nausea, diarrhea Genitourinary: denies: urgency, dysuria Musculoskeletal: denies: back pain, joint swelling, arthralgia Skin: denies: rash, lesions Neurological: denies: headache, weakness, paresthesias Psychiatric: as per HPI. denies: anxiety, depression, auditory hallucinations, visual hallucinations Hematological/Lymphatic: denies: easy bleeding, easy bruising ED Past Medical Hx - Past Medical History Previous Medical History?: Yes Hx Hypertension: Yes Hx CVA: Yes Hx Heart Attack/AMI: Yes (x 2 with stents) Hx Congestive Heart Failure: Yes Hx Diabetes: Yes Hx Renal Disease: Yes Hx Asthma: No Hx COPD: Yes Hx HIV: No Additional medical history: BPH, Pacemaker - Surgical History Past Surgical History?: Yes Hx Coronary Stent: Yes Hx Pacemaker: Yes Hx Internal Defibrillator: Yes Hx Appendectomy: Yes Additional Surgical History: HERNIA SURGERY, Pacemaker - Social History Smoking Status: Current Every Day Smoker Substance Use Type: Marijuana - Medications Home Medications: Home Medications Medication Instructions Recorded Confirmed Last Taken Type Cyclobenzaprine [Flexeril 10 MG 10 mg PO TID PRN #30 tablet 02/07/18 10/31/18 10/29/18 Rx TAB] Ondansetron [Zofran ODT TAB] 4 mg PO Q8HR PRN #20 tab.rapdis 04/01/18 10/31/18 10/29/18 Rx Promethazine [Phenergan] 25 mg PO Q6HR PRN #20 tab 04/01/18 10/31/18 10/29/18 Rx levETIRAcetam [Keppra TAB] 500 mg PO BID #60 tablet 10/31/18 Unknown Rx Acetaminophen [Acetaminophen TAB] 500 mg PO Q4HR PRN #30 tablet 07/25/19 Unknown Rx Aspirin [Aspirin BABY CHEW TAB] 81 mg PO QDAY #30 tab.chew 07/25/19 Unknown Rx Insulin Aspart Prot/Aspart(Nf) 18 units SQ BID #1 vial 07/25/19 Unknown Rx [NovoLOG Mix 70/30 VIAL] traZODone [Desyrel] 100 mg PO QHS #30 tablet 08/13/19 Unknown Rx Quetiapine Fumarate [SEROquel] 50 mg PO BID #60 tab 09/18/19 Unknown Rx ED Physical Exam - General Limitations: No Limitations General appearance: alert, in no apparent distress - Head Head exam: Present: atraumatic, normocephalic - Eye Eye exam: Present: normal appearance. Absent: scleral icterus - ENT ENT exam: Present: mucous membranes moist - Neck Neck exam: Present: normal inspection - Respiratory Respiratory exam: Present: normal lung sounds bilaterally. Absent: respiratory distress - Cardiovascular Cardiovascular Exam: Present: regular rate, normal rhythm. Absent: systolic murmur, diastolic murmur, rubs, gallop - GI/Abdominal GI/Abdominal exam: Present: soft, normal bowel sounds. Absent: distended, tenderness - Rectal Rectal exam: Present: deferred - Extremities Exam Extremities exam: Present: normal inspection. Absent: pedal edema, joint swelling, calf tenderness - Back Exam Back exam: Present: normal inspection - Neurological Exam Neurological exam: Present: alert, oriented X3, CN II-XII intact. Absent: motor sensory deficit - Psychiatric Psychiatric exam: Present: normal mood, flat affect - Skin Skin exam: Present: warm, dry, intact, normal color. Absent: rash ED Course Vital Signs 09/18/19 01:51 Temperature 98.3 F Pulse Rate 100 H Respiratory 18 Rate Blood Pressure 113/65 O2 Sat by Pulse 98 Oximetry - Reevaluation(s) Reevaluation #1: I do not have a problem with prescribing the patient a low dose of Seroquel as he is requesting. He is going to be referred to [facility]. There is nothing to suggest the need for hospitalization at this juncture. The patient does have a rand sewer and he should certainly follow-up. 09/18/19 07:08 ALINA score - Alina Score Age > 65: (0) No Aspirin use within the Past 7 Days: (0) No 3 or more CAD Risk Factors: (1) Yes 2 or more Angina events in past 24 hrs: (1) Yes Known CAD with more than 50% Stenosis: (0) No Elevated Cardiac Markers: (0) No ST Deviation Greater than 0.5mm: (0) No ALINA Score: 2 ED Medical Decision Making - Lab Data Result diagrams: 09/18/19 02:34 09/18/19 02:34 Laboratory Results - last 24 hr 09/18/19 09/18/19 09/18/19 02:34 02:34 04:44 WBC 4.7 RBC 4.48 Hgb 13.3 Hct 40.3 MCV 90 MCH 30 MCHC 33 RDW 15.8 H Plt Count 367 Lymph % (Auto) 30.5 [place] % (Auto) 8.4 H Eos % (Auto) 3.0 Baso % (Auto) 0.5 Lymph # 1.4 [place] # 0.4 Eos # 0.1 Baso # 0.0 Seg Neutrophils % 57.6 Seg Neutrophils # 2.7 Sodium 134 L Potassium 4.2 Chloride 92.1 L Carbon Dioxide 23 Anion Gap 23 BUN 13 Creatinine 1.2 Estimated GFR > 60 BUN/Creatinine Ratio 11 Glucose 330 H Calcium 9.3 Troponin T < 0.010 < 0.010 - EKG Data -: EKG Interpreted by Hi EKG shows normal: sinus rhythm, axis, intervals, QRS complexes, ST-T waves - EKG Data Interpretation: unchanged when compared t, nonspecific ST-T wave tavo - Radiology Data Radiology results: report reviewed (No acute findings) Critical care attestation.: If time is entered above; I have spent that time in minutes in the direct care of this critically ill patient, excluding procedure time. ED Disposition Clinical Impression: Atypical chest pain, Psychiatric disorder, Type 2 diabetes mellitus with hyperglycemia, with long-term current use of insulin Cardiomyopathy Qualifiers: Cardiomyopathy type: unspecified Qualified Code(s): I42.9 - Cardiomyopathy, unspecified Disposition: DC-01 TO HOME OR SELFCARE Is pt being admited?: No Does the pt Need Aspirin: No Condition: Stable Instructions: Chest Pain (ED), Diabetes Mellitus Type 2 in Adults (ED) Additional Instructions: Follow-up with your mental health provider, primary care and rand sewer. Return to the emergency department any acute change or problem. Prescriptions: Quetiapine Fumarate [SEROquel] 50 mg PO BID #60 tab Referrals: PRIMARY CARE, [Primary Care Provider] - 3-5 Days Usual, providers [Other] - 3-5 Days Time of Disposition: 07:11
[2019-09-18] MEDS ORDERED: QUEtiapine 100 MG TAB PO ONE (06:40)
[2019-09-18] MEDS ORDERED: INSULIN NPH/REGULAR 70/30 INJ SUB-Q ONE (08:00)
== END 2019-09-18 07:20 | disposition home or self-care (01) ==
LOC: ED 01:08
DX: E11.65 Type 2 diabetes mellitus with hyperglycemia (principal); I42.9 Cardiomyopathy, unspecified; I11.0 Hypertensive heart disease with heart failure; I50.9 Heart failure, unspecified; I25.2 Old myocardial infarction; J45.909 Unspecified asthma, uncomplicated; M13.88 Other specified arthritis, other site; F17.200 Nicotine dependence, unspecified, uncomplicated; F12.10 Cannabis abuse, uncomplicated; Z79.899 Other long term (current) drug therapy; Z79.4 Long term (current) use of insulin
CPT/HCPCS: 36415; 71045; 80048; 84484; 85025; 93005; J1815

== ENCOUNTER 2019-12-17 22:12 | Emergency (ER) | payer SELFPAY ==
[2019-12-17 22:41] VITALS: BP 108/75
[2019-12-17 23:20] LABS: Basophils # (Auto) 0.1 K/mm3 (0.0-0.1); Basophils % (Auto) 0.6 % (0.0-1.8); Eosinophils % (Auto) 0.1 % (0.0-4.3); Hematocrit 43.1 % (35.5-45.6); Hemoglobin 14.4 gm/dl (11.8-15.2); Lymphocytes # (Auto) 1.1 K/mm3 (1.2-5.4); Lymphocytes % (Auto) 12.8 % (13.4-35.0); Mean Corpuscular HGB Conc 34 % (32-34); Mean Corpuscular Volume 89 fl (84-94); Monocytes # (Auto) 0.4 K/mm3 (0.0-0.8); Monocytes % (Auto) 4.6 % (0.0-7.3); Platelet Count 373 K/mm3 (140-440); Red Blood Count 4.86 M/mm3 (3.65-5.03)
[2019-12-17 23:34] LABS: Calcium 10.8 mg/dL (8.4-10.2)
== END 2019-12-17 23:54 | disposition left against medical advice (07) ==
LOC: ED 22:12
DX: R10.9 Unspecified abdominal pain (principal); Z53.21 Procedure and treatment not carried out due to patient leaving prior to being seen by health care provider
CPT/HCPCS: 36415; 80053; 85025

== ENCOUNTER 2020-05-15 02:06 | Inpatient (IN) | payer OTHER ==
[2020-05-15] MEDS ORDERED: ETOMIDATE 20 MG/10 ML INJ IV ONE (02:09)
[2020-05-15] MEDS ORDERED: SUCCINYLCHOLINE CHLORIDE 200 MG/10 ML INJ MDV ONE (02:10)
[2020-05-15] MEDS ORDERED: AMIODARONE 150 MG in DEXTROSE 5% IN WATER 97 ML IV ONE (02:27)
[2020-05-15] MEDS ORDERED: ASPIRIN 325 MG TAB FEEDTUBE ONE (02:28)
[2020-05-15] MEDS ORDERED: MINERAL OIL/PETROLATUM, WHITE OPHTH OINT 3.5 GM OU PRN ×2 (02:29→07:51)
[2020-05-15] MEDS ORDERED: LIP THERAPY VASELINE TP PRN ×2 (02:29→07:51)
--- NOTE | 2020-05-15 02:37 | Emergency Department Report ---
HPI - General Chief Complaint: Cardiac Arrest/CPR Time Seen by Provider: 05/15/20 02:07 - HPI HPI: Room 41 The patient is a 54-year-old male present with a chief complaint of cardiac arrest. Per EMS the patient was working at [employer] when he began having chest pain. EMS was called and found the patient sitting on the side of the business with bystanders around him. Bystanders reported the patient's AICD fired 4 times. When EMS arrived the patient initially spoke a few words but then went unresponsive. EMS states that patient was not on the monitor at the time he went unresponsive but they did not feel a pulse and CPR was initiated. No medications were given however when an OPA was being administered by EMS the patient moaned and pulled it out but never spoke. EMS felt a pulse and states when he was placed on monitor it revealed normal sinus rhythm. The patient was transported to the ED where he did not respond to sternal rub so the decision to intubate using RSI was made ED Past Medical Hx - Past Medical History Hx Hypertension: Yes Hx CVA: Yes Hx Heart Attack/AMI: Yes (x 2 with stents) Hx Congestive Heart Failure: Yes Hx Diabetes: Yes Hx Renal Disease: Yes Hx COPD: Yes Additional medical history: BPH, Pacemaker - Surgical History Hx Coronary Stent: Yes Hx Pacemaker: Yes Hx Internal Defibrillator: Yes Hx Appendectomy: Yes Additional Surgical History: HERNIA SURGERY, Pacemaker - Family History Family history: no significant - Social History Smoking Status: Unknown if ever smoked - Medications Home Medications: Home Medications Medication Instructions Recorded Confirmed Last Taken Type Cyclobenzaprine [Flexeril 10 MG 10 mg PO TID PRN #30 tablet 02/07/18 12/23/19 10/29/18 Rx TAB] Ondansetron [Zofran ODT TAB] 4 mg PO Q8HR PRN #20 tab.rapdis 04/01/18 12/23/19 10/29/18 Rx Promethazine [Phenergan] 25 mg PO Q6HR PRN #20 tab 04/01/18 12/23/19 10/29/18 Rx levETIRAcetam [Keppra TAB] 500 mg PO BID #60 tablet 10/31/18 12/23/19 Unknown Rx Acetaminophen [Acetaminophen TAB] 500 mg PO Q4HR PRN #30 tablet 07/25/19 12/23/19 Unknown Rx Aspirin [Aspirin BABY CHEW TAB] 81 mg PO QDAY #30 tab.chew 07/25/19 12/23/19 Unknown Rx Insulin Aspart Prot/Aspart(Nf) 18 units SQ BID #1 vial 07/25/19 12/23/19 Unknown Rx [NovoLOG Mix 70/30 VIAL] traZODone [Desyrel] 100 mg PO QHS #30 tablet 08/13/19 12/23/19 Unknown Rx Quetiapine Fumarate [SEROquel] 50 mg PO BID #60 tab 09/18/19 12/23/19 Unknown Rx cephALEXin [Keflex] 500 mg PO Q12HR #10 cap 11/13/19 12/23/19 Unknown Rx ED Review of Systems ROS: Stated complaint: CARDIAC Other details as noted in HPI Comment: Unobtainable due to pts medical conditions Physical Exam - Physical Exam Physical Exam: GENERAL: The patient is well-developed well-nourished male lying on stretcher unresponsive. [] HEENT: Normocephalic. Atraumatic. Patient attempts to hold his eyes shut during exam. When they are opened the patient appears to be looking up and crossing his eyes NECK: Supple. Trachea midline CHEST/LUNGS: Clear to auscultation. There is no respiratory distress noted. HEART/CARDIOVASCULAR: Regular. There is no tachycardia. There is no gallop rub or murmur. ABDOMEN: Abdomen is soft, nontender. Patient has normal bowel sounds. There is no abdominal distention. SKIN: There is no rash. There is no edema. There is no diaphoresis. NEURO: GCS 3 T MUSCULOSKELETAL: There is no evidence of acute injury. - Intubation Sedative: Etomidate Mg Given: 20 Paralytic: Succinylcholine Mg Given: 100 Laryngoscope: fiberoptic video scope Size: 3 Assist Device Used: fiberoptic device ET Tube Size: 8 Tube Secured Depth (cm): 24 Tube Secured Location: lips Tube Placement Confirmation: visualized tube passing t, equal breath sounds bilat, no breath sounds over epi, confirmation by capnometr Patient Tolerated Procedure: no complications Intubation Complications: none ED Medical Decision Making - Lab Data Result diagrams: 05/15/20 02:50 05/15/20 02:50 Laboratory Tests 05/15/20 05/15/20 05/15/20 02:50 02:50 02:50 WBC 5.2 RBC 4.44 Hgb 13.4 Hct 39.7 MCV 89 MCH 30 MCHC 34 RDW 14.0 Plt Count 314 Lymph % (Auto) 41.4 H [place] % (Auto) 7.4 H Eos % (Auto) 0.4 Baso % (Auto) 0.4 Lymph # (Auto) 2.2 [place] # (Auto) 0.4 Eos # (Auto) 0.0 Baso # (Auto) 0.0 Seg Neutrophils % 50.4 Seg Neutrophils # 2.6 PT 14.2 INR 1.11 Sodium 137 Potassium 4.0 Chloride 97.8 L Carbon Dioxide 23 Anion Gap 20 BUN 12 Creatinine 0.9 Estimated GFR > 60 BUN/Creatinine Ratio 13 Glucose 229 H Calcium 9.0 Magnesium 2.10 Total Bilirubin 1.00 AST 22 ALT 27 Alkaline Phosphatase 82 Total Creatine Kinase 609 H CK-MB (CK-2) 6.2 H CK-MB (CK-2) Rel Index 1.0 Troponin T < 0.010 NT-Pro-B Natriuret Pep 88.87 Total Protein 7.1 Albumin 4.7 Albumin/Globulin Ratio 2.0 Urine Opiates Screen Urine Methadone Screen Ur Barbiturates Screen Ur Phencyclidine Scrn Ur Amphetamines Screen U Benzodiazepines Scrn Urine Cocaine Screen U Marijuana (THC) Screen Drugs of Abuse Note Plasma/Serum Alcohol 05/15/20 05/15/20 02:50 Unknown WBC RBC Hgb Hct MCV MCH MCHC RDW Plt Count Lymph % (Auto) [place] % (Auto) Eos % (Auto) Baso % (Auto) Lymph # (Auto) [place] # (Auto) Eos # (Auto) Baso # (Auto) Seg Neutrophils % Seg Neutrophils # PT INR Sodium Potassium Chloride Carbon Dioxide Anion Gap BUN Creatinine Estimated GFR BUN/Creatinine Ratio Glucose Calcium Magnesium Total Bilirubin AST ALT Alkaline Phosphatase Total Creatine Kinase CK-MB (CK-2) CK-MB (CK-2) Rel Index Troponin T NT-Pro-B Natriuret Pep Total Protein Albumin Albumin/Globulin Ratio Urine Opiates Screen Presumptive negative Urine Methadone Screen Presumptive negative Ur Barbiturates Screen Presumptive negative Ur Phencyclidine Scrn Presumptive negative Ur Amphetamines Screen Presumptive negative U Benzodiazepines Scrn Presumptive negative Urine Cocaine Screen Presumptive positive U Marijuana (THC) Screen Presumptive negative Drugs of Abuse Note Disclamer Plasma/Serum Alcohol 0.11 H - EKG Data -: EKG Interpreted by In EKG shows normal: sinus rhythm Rate: tachycardia (109 bpm) - EKG Data When compared to previous EKG there are: previous EKG unavailable Interpretation: other (No ischemic changes seen) - Radiology Data Radiology results: image reviewed (Chest x-ray) interpreted by me: Chest x-ray-ET tube in appropriate position. No pneumothorax. No definite focal infiltrates. - Differential Diagnosis Dysrhythmia, ACS, pericarditis, GERD Critical care attestation.: If time is entered above; I have spent that time in minutes in the direct care of this critically ill patient, excluding procedure time. ED Disposition Clinical Impression: Chest pain, Cardiac arrest, Cocaine abuse, Alcohol intoxication Disposition: OP ADMIT IP TO THIS HOSP Is pt being admited?: Yes Does the pt Need Aspirin: Yes Condition: Serious Instructions: Chest Pain (ED) Referrals: PRIMARY CARE,MD [Primary Care Provider] - 3-5 Days Time of Disposition: 04:20 (Hospitalist paged (Dr Coronel)) HEART Score - HEART Score History: Highly suspicious EKG: Non-specific Age: 45-65 Risk factors: > 3 risk factors or hx of atherosclerotic disease Troponin: Troponin T < 0.010 ng/mL (0.00-0.029) 05/15/20 02:50 Troponin: < normal limit HEART Score: 6
--- NOTE | 2020-05-15 02:54 | XRay Report ---
CHEST 1 VIEW 05/15/2020 1:39 AM INDICATION / CLINICAL INFORMATION: chest pain, AICD fired, status post CPR. COMPARISON: 12/23/19 FINDINGS: SUPPORT DEVICES: Endotracheal and esophagogastric tubes in expected position. HEART / MEDIASTINUM: Stable. Left-sided dual-lead cardiac pacemaker is unchanged. LUNGS / PLEURA: Mild perihilar edema. No pneumothorax. ADDITIONAL FINDINGS: No significant additional findings. IMPRESSION: 1. Endotracheal tube and esophagogastric in expected position. 2. Mild perihilar edema. Signer Name: Kelsi Farley MD Signed: 05/15/2020 2:49 AM Workstation Name: [id number]
[2020-05-15] MEDS ORDERED: AMIODARONE 900 MG in DEXTROSE 5% IN WATER 482 ML IV SCH (03:00)
[2020-05-15] MEDS ORDERED: MIDAZOLAM 100 MG in SODIUM CHLORIDE 0.9% 80 ML IV SCH (03:00)
[2020-05-15 03:08] LABS: Amphetamine Screen,Urine PRESUMPTIVE NEGATIVE; Benzodiazepines Screen,Urine PRESUMPTIVE NEGATIVE; Cannabinoid Screen,Urine PRESUMPTIVE NEGATIVE; Cocaine Screen,Urine PRESUMPTIVE POSITIVE; Methadone Screen,Urine PRESUMPTIVE NEGATIVE; Opiate Screen,Urine PRESUMPTIVE NEGATIVE
[2020-05-15] MEDS: MIDAZOLAM 2 MG/2 ML INJ IV PRN ×4 (03:15→08:10)
[2020-05-15] MEDS ORDERED: KETAMINE 500 MG/5 ML VIAL MDV ONE (03:35)
[2020-05-15] MEDS ORDERED: KETAMINE 500 MG/5 ML VIAL MDV IV ONE (03:35)
[2020-05-15 03:38] LABS: Creatine Kinase MB 6.2 ng/mL (0.0-4.0)
[2020-05-15 03:40] LABS: Alanine Aminotransferase 27 units/L (7-56); Albumin 4.7 g/dL (3.9-5); BUN/Creatinine Ratio 13; Blood Urea Nitrogen 12 mg/dL (9-20); Hemolysis Index 24
[2020-05-15 03:55] LABS: Basophils % (Auto) 0.4 % (0.0-1.8); Eosinophils % (Auto) 0.4 % (0.0-4.3); Hematocrit 39.7 % (35.5-45.6); Hemoglobin 13.4 gm/dl (11.8-15.2); Lymphocytes # (Auto) 2.2 K/mm3 (1.2-5.4); Lymphocytes % (Auto) 41.4 % (13.4-35.0); Mean Corpuscular HGB Conc 34 % (32-34); Mean Corpuscular Volume 89 fl (84-94); Monocytes # (Auto) 0.4 K/mm3 (0.0-0.8); Monocytes % (Auto) 7.4 % (0.0-7.3); Platelet Count 314 K/mm3 (140-440); Red Blood Count 4.44 M/mm3 (3.65-5.03)
[2020-05-15 04:01] LABS: INR 1.11 (0.87-1.13)
--- NOTE | 2020-05-15 04:56 | History and Physical Report ---
History of Present Illness Date of examination: 05/15/20 Date of admission: 05/15/2020 Chief complaint: Cardiac arrest History of present illness: 54-year-old -[place]ian male with multiple medical problems including CHF, coronary artery disease with stent placement in the past, diabetes mellitus, CVA, hypertension and history of defibrillator in place was brought in by EMS today with complaints of cardiac arrest. Patient was said to have been at [facility] when he was said to be having chest pain. Bystanders indicates that his AICD fired about 4 times and patient was said to have become unresponsive subsequently. CPR was commenced by EMS. Upon arrival in the emergency room patient was subsequently intubated. Work-up in the emergency room today, significant findings were in the UDS with cocaine positive. Patient has been admitted with cardiac arrest. He has been started on amiodarone drip from the emergency room. Past History Past Medical History: CAD ([place] with stent placement in the past), COPD, diabetes, heart failure, hypertension, renal failure, stroke, other (BPH) Past Surgical History: hernia repair, Other (Pacemaker placement) Social history: other (Unknown) Family history: other (Unknown) Medications and Allergies Allergies Allergy/AdvReac Type Severity Reaction Status Date / Time No Known Allergies Allergy Verified 01/24/18 08:29 Home Medications Medication Instructions Recorded Confirmed Last Taken Type Cyclobenzaprine [Flexeril 10 MG 10 mg PO TID PRN #30 tablet 02/07/18 12/23/19 10/29/18 Rx TAB] Ondansetron [Zofran ODT TAB] 4 mg PO Q8HR PRN #20 tab.rapdis 04/01/18 12/23/19 10/29/18 Rx Promethazine [Phenergan] 25 mg PO Q6HR PRN #20 tab 04/01/18 12/23/19 10/29/18 Rx levETIRAcetam [Keppra TAB] 500 mg PO BID #60 tablet 10/31/18 12/23/19 Unknown Rx Acetaminophen [Acetaminophen TAB] 500 mg PO Q4HR PRN #30 tablet 07/25/19 12/23/19 Unknown Rx Aspirin [Aspirin BABY CHEW TAB] 81 mg PO QDAY #30 tab.chew 07/25/19 12/23/19 Unknown Rx Insulin Aspart Prot/Aspart(Nf) 18 units SQ BID #1 vial 07/25/19 12/23/19 Unknown Rx [NovoLOG Mix 70/30 VIAL] traZODone [Desyrel] 100 mg PO QHS #30 tablet 08/13/19 12/23/19 Unknown Rx Quetiapine Fumarate [SEROquel] 50 mg PO BID #60 tab 09/18/19 12/23/19 Unknown Rx cephALEXin [Keflex] 500 mg PO Q12HR #10 cap 11/13/19 12/23/19 Unknown Rx Active Meds: Active Medications Hydrophilic Ointment (Lip Therapy Vaseline) 1 applic TP Q2HR PRN PRN Reason: Dry Lips Amiodarone HCl 900 mg/ (Dextrose) 500 mls @ 33.333 mls/hr IV DIRECT ROSALINDA; Protocol Last Admin: 05/15/20 03:10 Dose: 1 mg/min, 33.333 mls/hr Documented by: Midazolam HCl 100 mg/ Sodium (Chloride) 100 mls @ 2 mls/hr IV TITR ROSALINDA; Protocol Last Titration: 05/15/20 04:13 Dose: 5 mg/hr, 5 mls/hr Documented by: Midazolam HCl (Midazolam 2 Mg/2 Ml Inj) 2 mg IV Q10MIN PRN PRN Reason: Sedation Last Admin: 05/15/20 03:15 Dose: 2 mg Documented by: Multi-Ingred Cream/Lotion/Oil/Oint (Mineral Oil/Petrolatum, White Ophth Oint 3.5 Gm) 1 applic OU Q4HR PRN PRN Reason: Dry Eye(s) Review of Systems ROS unobtainable: due to endotracheal tube, due to mental status Exam - Constitutional Vitals: Temp Pulse Resp BP Pulse Ox 97.5 F L 85 22 131/81 85 05/15/20 02:20 05/15/20 04:39 05/15/20 04:30 05/15/20 04:39 05/15/20 04:39 General appearance: Present: no acute distress, well-nourished - EENT Eyes: Present: PERRL, EOM intact. Absent: scleral icterus ENT: hearing intact, clear oral mucosa, dentition normal - Neck Neck: Present: supple, normal ROM - Respiratory Respiratory effort: normal Respiratory: bilateral: CTA - Cardiovascular Rhythm: regular Heart Sounds: Present: S1 & S2. Absent: gallop, systolic murmur, diastolic murmur Details: Defibrillator/pacemaker on left anterior chest wall - Extremities Extremities: no ischemia, pulses intact, pulses symmetrical, No edema, normal temperature, normal color, Full ROM Peripheral Pulses: within normal limits - Abdominal General gastrointestinal: Present: soft, non-tender, non-distended, normal bowel sounds. Absent: mass - Integumentary Integumentary: Present: clear, warm, dry. Absent: rash - Musculoskeletal Musculoskeletal: strength equal bilaterally - Psychiatric Psychiatric: appropriate mood/affect, intact judgment & insight, memory intact, cooperative - Neurologic Neurologic: CNII-XII intact, no focal deficits, moves all extremities HEART Score - HEART Score EKG: Non-specific Age: 45-65 Risk factors: > 3 risk factors or hx of atherosclerotic disease Troponin: Troponin T < 0.010 ng/mL (0.00-0.029) 05/15/20 02:50 Troponin: < normal limit Results - Labs CBC & Chem 7: 05/15/20 05:42 05/15/20 02:50 Labs: Abnormal lab results 05/15/20 05/15/20 05/15/20 Range/Units 02:50 02:50 02:50 Lymph % (Auto) 41.4 H (13.4-35.0) % [place] % (Auto) 7.4 H (0.0-7.3) % Chloride 97.8 L (98-107) mmol/L Glucose 229 H (75-100) mg/dL Total Creatine Kinase 609 H (55-170) units/L CK-MB (CK-2) 6.2 H (0.0-4.0) ng/mL Plasma/Serum Alcohol 0.11 H (0-0.07) % Assessment and Plan - Patient Problems (1) Cardiac arrest Current Visit: Yes Status: Acute Plan to address problem: Etiology unclear.. Consult placed to chemical handler and crude oil driver for evaluation. (2) Chest pain Current Visit: Yes Status: Acute Plan to address problem: We will check serial cardiac enzymes and also request evaluation by cardiology. (3) Diabetes mellitus type 2 in obese Current Visit: No Status: Acute Plan to address problem: We will monitor Accu-Cheks. (4) CAD (coronary artery disease) Current Visit: No Status: Acute Qualifiers: Coronary Disease-Associated Artery/Lesion type: ramona artery [place] vs. transplanted heart: ramona heart Associated angina: with unspecified angina Qualified Code(s): I25.119 - Atherosclerotic heart disease of [place] coronary artery with unspecified angina pectoris Plan to address problem: History of stent placement in the past (5) DVT prophylaxis Current Visit: No Status: Acute Plan to address problem: Patient placed on subcutaneous Lovenox (6) Full code status Current Visit: No Status: Acute
[2020-05-15] MEDS ORDERED: NITROGLYCERIN 0.4 MG TAB SUBL SL PRN (04:59)
[2020-05-15] MEDS ORDERED: DEXTROSE 50% IN WATER (25GM) 50 ML SYRINGE IV PRN (04:59)
[2020-05-15] MEDS ORDERED: ACETAMINOPHEN 325 MG TAB PO PRN (04:59)
[2020-05-15] MEDS ORDERED: MORPHINE 2 MG/1 ML INJ IV PRN (04:59)
[2020-05-15 06:00] LABS: Basophils % (Auto) 0.7 % (0.0-1.8); Eosinophils % (Auto) 0.6 % (0.0-4.3); Hemoglobin 12.2 gm/dl (11.8-15.2); Lymphocytes # (Auto) 1.3 K/mm3 (1.2-5.4); Lymphocytes % (Auto) 33.5 % (13.4-35.0); Mean Corpuscular HGB Conc 33 % (32-34); Mean Corpuscular Volume 89 fl (84-94); Monocytes # (Auto) 0.3 K/mm3 (0.0-0.8); Monocytes % (Auto) 8.4 % (0.0-7.3); Platelet Count 309 K/mm3 (140-440); Red Blood Count 4.16 M/mm3 (3.65-5.03)
[2020-05-15 06:17] LABS: BUN/Creatinine Ratio 13; Blood Urea Nitrogen 12 mg/dL (9-20); Calcium 8.4 mg/dL (8.4-10.2); Hemolysis Index 7
[2020-05-15] MEDS ORDERED: INSULIN LISPRO 100 UNIT/ML SUB-Q SCH (07:30)
[2020-05-15] MEDS ORDERED: fentaNYL 100 MCG/2 ML INJ IV PRN (07:51)
[2020-05-15] MEDS ORDERED: fentaNYL DRIP Premix 2,000 MCG/100 ML BAG IV SCH (08:00)
--- NOTE | 2020-05-15 09:08 | XRay Report ---
CHEST 1 VIEW 05/15/2020 8:01 AM INDICATION / CLINICAL INFORMATION: ETT placement. COMPARISON: Radiograph from the same date. FINDINGS: SUPPORT DEVICES: The endotracheal tube tip projects approximately 5.3 cm superior to the roman. Deneen ining support lines and tubes are unchanged. HEART / MEDIASTINUM: Stable. LUNGS / PLEURA: Mild perihilar edema is unchanged. No pneumothorax. ADDITIONAL FINDINGS: No significant additional findings. IMPRESSION: 1. Endotracheal tube in expected position. Signer Name: Kt Carrington MD Signed: 05/15/2020 9:03 AM Workstation Name: [id number]
--- NOTE | 2020-05-15 09:24 | Consultation ---
History of Present Illness Consult date: 05/15/20 Requesting physician: CHILO CASE Reason for consult: other (out of hospital cardiac arrest) History of present illness: 54 y/o male, known Cardiomyopathy and systolic heart failure with EF of 30-35% presents with out of hospital cardiac arrest. Patient is a known cocaine abuser and UDS was positive for cocaine on this admit. Patient started waking up this am, angry and agitated. Started on versed drip. spoke with nursing and they will stop versed and we will extubate patient. Past History Past Medical History: CAD ([place] with stent placement in the past), COPD, diabetes, heart failure, hypertension, renal failure, stroke, other (BPH) Past Surgical History: hernia repair, Other (Pacemaker placement) Social history: other (Unknown) Family history: other (Unknown) Medications and Allergies Allergies Allergy/AdvReac Type Severity Reaction Status Date / Time No Known Allergies Allergy Verified 01/24/18 08:29 Home Medications Medication Instructions Recorded Confirmed Last Taken Type Cyclobenzaprine [Flexeril 10 MG 10 mg PO TID PRN #30 tablet 02/07/18 12/23/19 10/29/18 Rx TAB] Ondansetron [Zofran ODT TAB] 4 mg PO Q8HR PRN #20 tab.rapdis 04/01/18 12/23/19 10/29/18 Rx Promethazine [Phenergan] 25 mg PO Q6HR PRN #20 tab 04/01/18 12/23/19 10/29/18 Rx levETIRAcetam [Keppra TAB] 500 mg PO BID #60 tablet 10/31/18 12/23/19 Unknown Rx Acetaminophen [Acetaminophen TAB] 500 mg PO Q4HR PRN #30 tablet 07/25/19 12/23/19 Unknown Rx Aspirin [Aspirin BABY CHEW TAB] 81 mg PO QDAY #30 tab.chew 07/25/19 12/23/19 Unknown Rx Insulin Aspart Prot/Aspart(Nf) 18 units SQ BID #1 vial 07/25/19 12/23/19 Unknown Rx [NovoLOG Mix 70/30 VIAL] traZODone [Desyrel] 100 mg PO QHS #30 tablet 08/13/19 12/23/19 Unknown Rx Quetiapine Fumarate [SEROquel] 50 mg PO BID #60 tab 09/18/19 12/23/19 Unknown Rx cephALEXin [Keflex] 500 mg PO Q12HR #10 cap 11/13/19 12/23/19 Unknown Rx Active Meds: Active Medications Acetaminophen (Acetaminophen 325 Mg Tab) 650 mg PO Q6H PRN PRN Reason: Pain, Mild (1-3) Aspirin (Aspirin Ec 325 Mg Tab) 325 mg PO QDAY ROSALINDA Dextrose (Dextrose 50% In Water (25gm) 50 Ml Syringe) 0 ml IV Q30MIN PRN; Protocol PRN Reason: Hypoglycemia Enoxaparin Sodium (Enoxaparin 40 Mg/0.4 Ml Inj) 40 mg SUB-Q QDAY@2200 ROSALINDA; Protocol Fentanyl (Fentanyl 100 Mcg/2 Ml Inj) 50 mcg IV Q10MIN PRN PRN Reason: ANALGESIA Hydrophilic Ointment (Lip Therapy Vaseline) 1 applic TP Q2HR PRN PRN Reason: Dry Lips Amiodarone HCl 900 mg/ (Dextrose) 500 mls @ 33.333 mls/hr IV DIRECT ROSALINDA; Protocol Last Admin: 05/15/20 03:10 Dose: 1 mg/min, 33.333 mls/hr Documented by: Midazolam HCl 100 mg/ Sodium (Chloride) 100 mls @ 2 mls/hr IV TITR ROSALINDA; Protocol Last Titration: 05/15/20 09:13 Dose: 0 mg/hr, 0 mls/hr Documented by: Fentanyl Citrate (Fentanyl Drip Premix) 2,000 mcg in 100 mls @ 3.402 mls/hr IV TITR ROSALINDA; Protocol Last Titration: 05/15/20 09:12 Dose: 0 mcg/kg/hr, 0 mls/hr Documented by: Insulin Human Lispro (Insulin Lispro 100 Unit/Ml) 0 unit SUB-Q Q6HR ROSALINDA; Protocol Midazolam HCl (Midazolam 2 Mg/2 Ml Inj) 2 mg IV Q10MIN PRN PRN Reason: Sedation Last Admin: 05/15/20 08:10 Dose: 2 mg Documented by: Morphine Sulfate (Morphine 2 Mg/1 Ml Inj) 2 mg IV Q5MIN PRN PRN Reason: Chest Pain Multi-Ingred Cream/Lotion/Oil/Oint (Mineral Oil/Petrolatum, White Ophth Oint 3.5 Gm) 1 applic OU Q4HR PRN PRN Reason: Dry Eye(s) Multi-Ingred Cream/Lotion/Oil/Oint (Mineral Oil/Petrolatum, White Ophth Oint 3.5 Gm) 1 applic OU Q4HR PRN PRN Reason: Dry Eye(s) Nitroglycerin (Nitroglycerin 0.4 Mg Tab Subl) 0.4 mg SL Q5M PRN PRN Reason: Chest Pain Sodium Chloride (Sodium Chloride 0.9% 10 Ml Flush Syringe) 10 ml IV BID ROSALINDA Sodium Chloride (Sodium Chloride 0.9% 10 Ml Flush Syringe) 10 ml IV PRN PRN PRN Reason: LINE FLUSH Review of Systems ROS unobtainable: due to endotracheal tube, due to mental status Physical Examination Vital signs: Vital Signs Temp Pulse Resp BP Pulse Ox 97.5 F L 101 H 22 166/107 99 05/15/20 02:20 05/15/20 02:20 05/15/20 02:20 05/15/20 02:20 05/15/20 02:20 General appearance: no acute distress, comatose ENT: other (orally intubated and sedated) Neck: supple Effort: normal Ascultation: Bilateral: clear Cardiovascular: regular rate and rhythm Gastrointestinal: normoactive bowel sounds Results - Laboratory Findings CBC and BMP: 05/15/20 05:42 05/15/20 05:42 ABG ABG pH 7.407 (7.320-7.450) 05/15/20 06:47 POC ABG pCO2 39.4 mmHg (32.0-48.0) 05/15/20 06:47 POC ABG pO2 77.7 mmHg (83-108) L 05/15/20 06:47 POC ABG HCO3 24.2 05/15/20 06:47 PT/INR, D-dimer PT 14.2 Sec. (12.2-14.9) 05/15/20 02:50 INR 1.11 (0.87-1.13) 05/15/20 02:50 Abnormal lab findings: Abnormal Labs 05/15/20 05/15/20 05/15/20 02:50 02:50 02:50 WBC Lymph % (Auto) 41.4 H [place] % (Auto) 7.4 H POC ABG pO2 ABG Glucose Chloride 97.8 L Glucose 229 H POC Glucose Total Creatine Kinase 609 H CK-MB (CK-2) 6.2 H Arterial Blood Glucose Arterial Blood Ionized Calcium Plasma/Serum Alcohol 0.11 H 05/15/20 05/15/20 05/15/20 05:42 05:42 06:47 WBC 3.9 L Lymph % (Auto) [place] % (Auto) 8.4 H POC ABG pO2 77.7 L ABG Glucose 273 H Chloride Glucose 244 H POC Glucose Total Creatine Kinase CK-MB (CK-2) Arterial Blood Glucose 273 H Arterial Blood Ionized Calcium 4.5 L Plasma/Serum Alcohol 05/15/20 08:44 WBC Lymph % (Auto) [place] % (Auto) POC ABG pO2 ABG Glucose Chloride Glucose POC Glucose 213 H Total Creatine Kinase CK-MB (CK-2) Arterial Blood Glucose Arterial Blood Ionized Calcium Plasma/Serum Alcohol - Diagnostic Findings Chest x-ray: image reviewed (AICD , but otherwise no acute lung disease) Assessment and Plan 54 y/o male with out of hospital cardiac arrest, intubated, likely secondary to cocaine use. 1. Stop sedation 2. Extubate 3. resume home meds after bedside swallow evaluation 4. No acute need for ICU post extubation 5. Follow up cardiology recs. CCT 31 minutes.
--- NOTE | 2020-05-15 11:30 | Consultation ---
History of Present Illness Consult date: 05/15/20 Requesting physician: CHILO CASE Consult reason: cardiac arrest History of present illness: The pt is a 54 YO male with a past medical history of cocaine abuse, cardiomyopathy with most recently normalized EF, PPM, diabetes, peripheral neuropathy. He has been seen by our practice on prior hospitalizations, non compliant with OP follow up. He is intubated on evaluation and thus HPI is obtained per the chart. He presented for evaluation following reported cardiac arrest in the field. Per records, pt was working at [employer] when he began having chest pain. EMS was called and found the patient sitting on the side of the business with bystanders around him. Bystanders reported the patient's AICD fired 4 times (pt has PPM, not AICD per our records). When EMS arrived the patient initially spoke a few words but then went unresponsive. EMS states that patient was not on the monitor at the time he went unresponsive but they did not feel a pulse and CPR was initiated. No medications were given however when an OPA was being administered by EMS the patient moaned and pulled it out but never spoke. EMS felt a pulse and states when he was placed on monitor it revealed normal sinus rhythm. The patient was transported to the ED where he did not respond to sternal rub so the decision to intubate using RSI was made. On evaluation, pt is intubated, not sedated, agitated, restrained, currently for possible extubation today. Of noted, pt was hospitalized in 09/2016 at [facility]. Per the records, he was admitt ed there at that time for syncope and chest pain. A Medtronic pacemaker was placed for AV block, his EF was 30-35%, AICD was not placed secondary to his ongoing drug use (cocaine). Echo done 09/2016 showed EF 30-35%, mod reduced RV systolic function. Echo done 01/2018 showed EF 50-55%, trace MR and TR. Echo done 06/2019 showed EF 50-55%, impaired relaxation, pacemaker wire in RA, negative bubble study. PET MPI done 09/2016 was negative for significant ischemia. Past History Past Medical History: other (as per HPI) Past Surgical History: hernia repair, Other (Pacemaker placement) Social history: other (Unknown) Family history: other (Unknown) Medications and Allergies Allergies Allergy/AdvReac Type Severity Reaction Status Date / Time No Known Allergies Allergy Verified 01/24/18 08:29 Home Medications Medication Instructions Recorded Confirmed Last Taken Type Cyclobenzaprine [Flexeril 10 MG 10 mg PO TID PRN #30 tablet 02/07/18 12/23/19 10/29/18 Rx TAB] Ondansetron [Zofran ODT TAB] 4 mg PO Q8HR PRN #20 tab.rapdis 04/01/18 12/23/19 10/29/18 Rx Promethazine [Phenergan] 25 mg PO Q6HR PRN #20 tab 04/01/18 12/23/19 10/29/18 Rx levETIRAcetam [Keppra TAB] 500 mg PO BID #60 tablet 10/31/18 12/23/19 Unknown Rx Acetaminophen [Acetaminophen TAB] 500 mg PO Q4HR PRN #30 tablet 07/25/19 12/23/19 Unknown Rx Aspirin [Aspirin BABY CHEW TAB] 81 mg PO QDAY #30 tab.chew 07/25/19 12/23/19 Unknown Rx Insulin Aspart Prot/Aspart(Nf) 18 units SQ BID #1 vial 07/25/19 12/23/19 Unknown Rx [NovoLOG Mix 70/30 VIAL] traZODone [Desyrel] 100 mg PO QHS #30 tablet 08/13/19 12/23/19 Unknown Rx Quetiapine Fumarate [SEROquel] 50 mg PO BID #60 tab 09/18/19 12/23/19 Unknown Rx cephALEXin [Keflex] 500 mg PO Q12HR #10 cap 11/13/19 12/23/19 Unknown Rx Active Meds: Active Medications Acetaminophen (Acetaminophen 325 Mg Tab) 650 mg PO Q6H PRN PRN Reason: Pain, Mild (1-3) Aspirin (Aspirin Ec 325 Mg Tab) 325 mg PO QDAY ROSALINDA Dextrose (Dextrose 50% In Water (25gm) 50 Ml Syringe) 0 ml IV Q30MIN PRN; Protocol PRN Reason: Hypoglycemia Enoxaparin Sodium (Enoxaparin 40 Mg/0.4 Ml Inj) 40 mg SUB-Q QDAY@2200 ROSALINDA; Protocol Fentanyl (Fentanyl 100 Mcg/2 Ml Inj) 50 mcg IV Q10MIN PRN PRN Reason: ANALGESIA Hydrophilic Ointment (Lip Therapy Vaseline) 1 applic TP Q2HR PRN PRN Reason: Dry Lips Amiodarone HCl 900 mg/ (Dextrose) 500 mls @ 33.333 mls/hr IV DIRECT ROSALINDA; Protocol Last Admin: 05/15/20 03:10 Dose: 1 mg/min, 33.333 mls/hr Documented by: Midazolam HCl 100 mg/ Sodium (Chloride) 100 mls @ 2 mls/hr IV TITR ROSALINDA; Protocol Last Titration: 05/15/20 09:13 Dose: 0 mg/hr, 0 mls/hr Documented by: Fentanyl Citrate (Fentanyl Drip Premix) 2,000 mcg in 100 mls @ 3.402 mls/hr IV TITR ROSALINDA; Protocol Last Titration: 05/15/20 09:12 Dose: 0 mcg/kg/hr, 0 mls/hr Documented by: Insulin Human Lispro (Insulin Lispro 100 Unit/Ml) 0 unit SUB-Q Q6HR ROSALINDA; Protocol Midazolam HCl (Midazolam 2 Mg/2 Ml Inj) 2 mg IV Q10MIN PRN PRN Reason: Sedation Last Admin: 05/15/20 08:10 Dose: 2 mg Documented by: Morphine Sulfate (Morphine 2 Mg/1 Ml Inj) 2 mg IV Q5MIN PRN PRN Reason: Chest Pain Multi-Ingred Cream/Lotion/Oil/Oint (Mineral Oil/Petrolatum, White Ophth Oint 3.5 Gm) 1 applic OU Q4HR PRN PRN Reason: Dry Eye(s) Multi-Ingred Cream/Lotion/Oil/Oint (Mineral Oil/Petrolatum, White Ophth Oint 3.5 Gm) 1 applic OU Q4HR PRN PRN Reason: Dry Eye(s) Nitroglycerin (Nitroglycerin 0.4 Mg Tab Subl) 0.4 mg SL Q5M PRN PRN Reason: Chest Pain Sodium Chloride (Sodium Chloride 0.9% 10 Ml Flush Syringe) 10 ml IV BID ROSALINDA Sodium Chloride (Sodium Chloride 0.9% 10 Ml Flush Syringe) 10 ml IV PRN PRN PRN Reason: LINE FLUSH Review of Systems ROS unobtainable: due to endotracheal tube, due to mental status Physical Examination Vital Signs Temp Pulse Resp BP Pulse Ox 97.5 F L 101 H 22 166/107 99 05/15/20 02:20 05/15/20 02:20 05/15/20 02:20 05/15/20 02:20 05/15/20 02:20 General appearance: other (agitated, intubated) Neck: Positive: neck supple, trachea midline Cardiac: Positive: Reg Rate and Rhythm, S1/S2 Lungs: Positive: Decreased Breath Sounds Neuro: Positive: Other (agitated, intubated) Skin: Negative: Rash Extremities: Absent: edema Results 05/15/20 05:42 05/15/20 05:42 Cardiac Enzymes 05/15/20 Range/Units 02:50 AST 22 (5-40) units/L CK-MB (CK-2) 6.2 H (0.0-4.0) ng/mL Coagulation 05/15/20 Range/Units 02:50 PT 14.2 (12.2-14.9) Sec. INR 1.11 (0.87-1.13) CBC 05/15/20 05/15/20 Range/Units 02:50 05:42 WBC 5.2 3.9 L (4.5-11.0) K/mm3 RBC 4.44 4.16 (3.65-5.03) M/mm3 Hgb 13.4 12.2 (11.8-15.2) gm/dl Hct 39.7 37.0 (35.5-45.6) % Plt Count 314 309 (140-440) K/mm3 Lymph # (Auto) 2.2 1.3 (1.2-5.4) K/mm3 [place] # (Auto) 0.4 0.3 (0.0-0.8) K/mm3 Eos # (Auto) 0.0 0.0 (0.0-0.4) K/mm3 Baso # (Auto) 0.0 0.0 (0.0-0.1) K/mm3 Comprehensive Metabolic Panel 05/15/20 05/15/20 Range/Units 02:50 05:42 Sodium 137 139 (137-145) mmol/L Potassium 4.0 3.9 (3.6-5.0) mmol/L Chloride 97.8 L 100.2 (98-107) mmol/L Carbon Dioxide 23 27 (22-30) mmol/L BUN 12 12 (9-20) mg/dL Creatinine 0.9 0.9 (0.8-1.3) mg/dL Glucose 229 H 244 H (75-100) mg/dL Calcium 9.0 8.4 (8.4-10.2) mg/dL AST 22 (5-40) units/L ALT 27 (7-56) units/L Alkaline Phosphatase 82 (35-129) units/L Total Protein 7.1 (6.3-8.2) g/dL Albumin 4.7 (3.9-5) g/dL - Imaging and Cardiology Echo: pending, report reviewed (Echo done 06/2019 showed EF 50-55%, impaired relaxation, pacemaker wire in RA, negative bubble study. ) EKG: report reviewed, image reviewed EKG interpretations - Telemetry EKG Rhythm: Sinus Rhythm - EKG Sinus rhythms and dysrhythmias: sinus rhythm Assessment and Plan Pt presented following evaluation of cardiopulmonary arrest. Per chart, bystanders reported the patient's AICD fired 4 times, although per our records, pt does not have AICD - he has PPM implanted at [facility] in 09/2016 for AV block. ECG with NSR and NAF, Burt negative for AMI. VS currently stable. Pt is for possible extubation today. Cont present cardiac management and interrogate PPM (Medtronic). F/u tte. Will follow. The patient has been seen in conjunction with Dr. Sidhu who agrees with the assessment and plan of care. - Patient Problems (1) Cardiopulmonary arrest Current Visit: Yes Status: Acute (2) Altered mental status Current Visit: Yes Status: Acute Qualifiers: Altered mental status type: unspecified Qualified Code(s): R41.82 - Altered mental status, unspecified (3) Alcohol intoxication Current Visit: Yes Status: Acute (4) History of cardiomyopathy Current Visit: Yes Status: Chronic (5) Cardiac pacemaker in situ Current Visit: Yes Status: Chronic (6) HTN (hypertension) Current Visit: Yes Status: Chronic (7) Diabetes Current Visit: Yes Status: Chronic (8) Cocaine use Current Visit: Yes Status: Chronic
[2020-05-15] MEDS: INSULIN LISPRO 100 UNIT/ML SUB-Q SCH ×2 (13:21→21:37)
--- NOTE | 2020-05-15 13:53 | Progress Note ---
Assessment and Plan Assessment and plan: --Cardiac arrest Likely from cocaine overdose. Patient was reportedly having chest pain prior to cardiac arrest. Urine toxin positive for cocaine Now intubated and sedated. Patient is agitated despite sedatives. Likely be extubated today. Cardiology on board Echocardiogram pending. Has a history of dilated cardiomyopathy with EF 30 to 35% ----Congestive heart failure [systolic] s/p AICD placement AICD fired 4 times as per bystanders Chief Telephone Operator has been consulted ---Cocaine abuse Drug abuse counseling when extubated ----Diabetes mellitus Insulin regimen DVT prophylaxis-Lovenox Full code History Interval history: Intubated. Will be extubated today. Hospitalist Physical - Physical exam Narrative exam: VITAL SIGNS: Reviewed. GENERAL:Sedated EYES: Pupils are equal. Extraocular motions intact. MOUTH: Oropharynx is normal. NECK: No adenopathy, no JVD. CHEST: Chest with diminished breath sounds bilaterally. No wheezes, rales, or rhonchi. CARDIAC: normal S1 and S2, without murmurs, gallops, or rubs. ABDOMEN: Soft, non tender and non distended. No rebound or guarding, and no masses palpated. Bowel Sounds normal. MUSCULOSKELETAL: No edema NEUROLOGIC EXAM: Sedated and intubated SKIN: No obvious lesions - Constitutional Vitals: Temp Pulse Resp BP Pulse Ox 97.5 F L 84 11 L 127/74 97 05/15/20 02:20 05/15/20 13:00 05/15/20 13:00 05/15/20 13:00 05/15/20 13:00 HEART Score - HEART Score EKG: Non-specific Age: 45-65 Risk factors: > 3 risk factors or hx of atherosclerotic disease Troponin: Troponin T < 0.010 ng/mL (0.00-0.029) 05/15/20 12:12 Troponin: < normal limit Results - Labs CBC & Chem 7: 05/15/20 05:42 05/15/20 05:42 Labs: Laboratory Last Values WBC 3.9 K/mm3 (4.5-11.0) L 05/15/20 05:42 RBC 4.16 M/mm3 (3.65-5.03) 05/15/20 05:42 Hgb 12.2 gm/dl (11.8-15.2) 05/15/20 05:42 Hct 37.0 % (35.5-45.6) 05/15/20 05:42 MCV 89 fl (84-94) 05/15/20 05:42 MCH 29 pg (28-32) 05/15/20 05:42 MCHC 33 % (32-34) 05/15/20 05:42 RDW 14.0 % (13.2-15.2) 05/15/20 05:42 Plt Count 309 K/mm3 (140-440) 05/15/20 05:42 Lymph % (Auto) 33.5 % (13.4-35.0) 05/15/20 05:42 [place] % (Auto) 8.4 % (0.0-7.3) H 05/15/20 05:42 Eos % (Auto) 0.6 % (0.0-4.3) 05/15/20 05:42 Baso % (Auto) 0.7 % (0.0-1.8) 05/15/20 05:42 Lymph # (Auto) 1.3 K/mm3 (1.2-5.4) 05/15/20 05:42 [place] # (Auto) 0.3 K/mm3 (0.0-0.8) 05/15/20 05:42 Eos # (Auto) 0.0 K/mm3 (0.0-0.4) 05/15/20 05:42 Baso # (Auto) 0.0 K/mm3 (0.0-0.1) 05/15/20 05:42 Seg Neutrophils % 56.8 % (40.0-70.0) 05/15/20 05:42 Seg Neutrophils # 2.2 K/mm3 (1.8-7.7) 05/15/20 05:42 PT 14.2 Sec. (12.2-14.9) 05/15/20 02:50 INR 1.11 (0.87-1.13) 05/15/20 02:50 ABG pH 7.407 (7.320-7.450) 05/15/20 06:47 POC ABG pCO2 39.4 mmHg (32.0-48.0) 05/15/20 06:47 POC ABG pO2 77.7 mmHg (83-108) L 05/15/20 06:47 POC ABG HCO3 24.2 05/15/20 06:47 POC ABG Base Excess -0.3 05/15/20 06:47 ABG Hemoglobin 12.9 (12.0-17.5) 05/15/20 06:47 ABG Sodium 137.9 mmol/L (136.0-145.0) 05/15/20 06:47 ABG Potassium 3.6 mmol/L (3.40-4.50) 05/15/20 06:47 ABG Chloride 101.0 mmol/L (98-107) 05/15/20 06:47 ABG Glucose 273 mg/dL (65-95) H 05/15/20 06:47 FiO2 30 05/15/20 06:47 Sodium 139 mmol/L (137-145) 05/15/20 05:42 Potassium 3.9 mmol/L (3.6-5.0) 05/15/20 05:42 Chloride 100.2 mmol/L (98-107) 05/15/20 05:42 Carbon Dioxide 27 mmol/L (22-30) 05/15/20 05:42 Anion Gap 16 mmol/L 05/15/20 05:42 BUN 12 mg/dL (9-20) 05/15/20 05:42 Creatinine 0.9 mg/dL (0.8-1.3) 05/15/20 05:42 Estimated GFR > 60 ml/min 05/15/20 05:42 BUN/Creatinine Ratio 13 % 05/15/20 05:42 Glucose 244 mg/dL (75-100) H 05/15/20 05:42 POC Glucose 199 mg/dL (70-105) H 05/15/20 12:50 Calcium 8.4 mg/dL (8.4-10.2) 05/15/20 05:42 Magnesium 2.10 mg/dL (1.7-2.3) 05/15/20 02:50 Total Bilirubin 1.00 mg/dL (0.1-1.2) 05/15/20 02:50 AST 22 units/L (5-40) 05/15/20 02:50 ALT 27 units/L (7-56) 05/15/20 02:50 Alkaline Phosphatase 82 units/L (35-129) 05/15/20 02:50 Total Creatine Kinase 609 units/L (55-170) H 05/15/20 02:50 CK-MB (CK-2) 6.2 ng/mL (0.0-4.0) H 05/15/20 02:50 CK-MB (CK-2) Rel Index 1.0 (0-4) 05/15/20 02:50 Troponin T < 0.010 ng/mL (0.00-0.029) 05/15/20 12:12 NT-Pro-B Natriuret Pep 88.87 pg/mL (0-900) 05/15/20 02:50 Total Protein 7.1 g/dL (6.3-8.2) 05/15/20 02:50 Albumin 4.7 g/dL (3.9-5) 05/15/20 02:50 Albumin/Globulin Ratio 2.0 % 05/15/20 02:50 Arterial Blood Glucose 273 mg/dL (65-95) H 05/15/20 06:47 Arterial Blood Ionized Calcium 4.5 mg/dL (4.6-5.3) L 05/15/20 06:47 Urine Opiates Screen Presumptive negative 05/15/20 Unknown Urine Methadone Screen Presumptive negative 05/15/20 Unknown Ur Barbiturates Screen Presumptive negative 05/15/20 Unknown Ur Phencyclidine Scrn Presumptive negative 05/15/20 Unknown Ur Amphetamines Screen Presumptive negative 05/15/20 Unknown U Benzodiazepines Scrn Presumptive negative 05/15/20 Unknown Urine Cocaine Screen Presumptive positive 05/15/20 Unknown U Marijuana (THC) Screen Presumptive negative 05/15/20 Unknown Drugs of Abuse Note Disclamer 05/15/20 Unknown Plasma/Serum Alcohol 0.11 % (0-0.07) H 05/15/20 02:50 Active Medications - Current Medications Current Medications: Generic Name Dose Route Start Last Admin Trade Name Freq PRN Reason Stop Dose Admin Acetaminophen 650 mg 05/15/20 04:59 Acetaminophen 325 Mg Tab PO Q6H PRN Pain, Mild (1-3) Aspirin 325 mg 05/16/20 10:00 Aspirin Ec 325 Mg Tab PO QDAY ROSALINDA Dextrose 0 ml 05/15/20 04:59 Dextrose 50% In Water (25gm) 50 Ml Syringe IV Q30MIN PRN Hypoglycemia Protocol Enoxaparin Sodium 40 mg 05/15/20 22:00 Enoxaparin 40 Mg/0.4 Ml Inj SUB-Q QDAY@2200 [facility] Protocol Fentanyl 50 mcg 05/15/20 07:51 Fentanyl 100 Mcg/2 Ml Inj IV Q10MIN PRN ANALGESIA Hydrophilic Ointment 1 applic 05/15/20 02:29 Lip Therapy Vaseline TP Q2HR PRN Dry Lips Amiodarone HCl 900 mg/ 500 mls @ 33.333 mls/hr 05/15/20 03:00 05/15/20 03:10 Dextrose IV 1 mg/min DIRECT ROSALINDA 33.333 mls/hr Administration Protocol 1 MG/MIN Midazolam HCl 100 mg/ Sodium 100 mls @ 2 mls/hr 05/15/20 03:00 05/15/20 09:13 Chloride IV 0 mg/hr TITR ROSALINDA 0 mls/hr Titration Protocol 2 MG/HR Fentanyl Citrate 2,000 mcg in 100 mls @ 3.402 mls/hr 05/15/20 08:00 05/15/20 09:12 Fentanyl Drip Premix IV 0 mcg/kg/hr TITR ROSALINDA 0 mls/hr Titration Protocol 1 MCG/KG/HR Insulin Human Lispro 0 unit 05/15/20 10:00 05/15/20 13:21 Insulin Lispro 100 Unit/Ml SUB-Q Not Given Q6HR [facility] Protocol Midazolam HCl 2 mg 05/15/20 02:29 05/15/20 08:10 Midazolam 2 Mg/2 Ml Inj IV 2 mg Q10MIN PRN Administration Sedation Morphine Sulfate 2 mg 05/15/20 04:59 Morphine 2 Mg/1 Ml Inj IV Q5MIN PRN Chest Pain Multi-Ingred Cream/Lotion/Oil/Oint 1 applic 05/15/20 02:29 Mineral Oil/Petrolatum, White Ophth Oint 3.5 Gm OU Q4HR PRN Dry Eye(s) Multi-Ingred Cream/Lotion/Oil/Oint 1 applic 05/15/20 07:51 Mineral Oil/Petrolatum, White Ophth Oint 3.5 Gm OU Q4HR PRN Dry Eye(s) Nitroglycerin 0.4 mg 05/15/20 04:59 Nitroglycerin 0.4 Mg Tab Subl SL Q5M PRN Chest Pain Sodium Chloride 10 ml 05/15/20 10:00 05/15/20 13:21 Sodium Chloride 0.9% 10 Ml Flush Syringe IV Not Given BID [facility] Sodium Chloride 10 ml 05/15/20 04:59 Sodium Chloride 0.9% 10 Ml Flush Syringe IV PRN PRN LINE FLUSH Nutrition/Malnutrition Assess - Dietary Evaluation Nutrition/Malnutrition Findings: Nutrition Notes Start: 05/15/20 10:34 Freq: Status: Active Protocol: Document 05/15/20 10:34 CODY (Rec: 05/15/20 10:37 CODY [id number]) Co-Sign 05/15/20 10:34 TRISH Nutrition Notes Need for Assessment generated from: MD Order Initial or Follow up Brief Note Current Diagnosis Coronary Artery Disease, Diabetes,Hypertension,Heart Failure Other Pertinent Diagnosis Cardiac arrest and ETOH intoxication. PMH: CVA Current Diet NPO Height 5 ft 5 in Weight 68 kg [place] Body Weight (kg) 61.81 BMI 24.9 Subjective/Other Information MD consult for nutritional intake. Pt still in ED hold and not appropriate at this time for nutritional assessment of history. Pt adm 05/15/20 at 02:06. Is patient on ventilator? No Is Patient Ambulatory and/or Out of Bed No REE-([facility]-confined to bed) 1008.601 Calculation Used for Recommendations [facility] Additional Notes Protein 1.2-2 g/k-136 g Fluid: 1ml/kcal Nutrition Intervention Change Diet Order: Diet advancement to PO once medically able or TF if necessary. Nutrition Support: If TF necessary, recommend Promote at 70 ml/hr. Flush 50 ml q4hr. Kcal 1,680 Protein (gm) 105 Fluid (mL) 1,410 Follow-Up By: 05/17/20 Additional Comments F/u full assessment, evaluate nutritonal intakes
[2020-05-15] MEDS ORDERED: HYDROmorphone 1 MG/1 ML INJ IV PRN (20:23)
[2020-05-15] MEDS: ENOXAPARIN 40 MG/0.4 ML INJ SUB-Q SCH (21:38)
[2020-05-16 05:56] LABS: Basophils % (Auto) 0.4 % (0.0-1.8); Eosinophils % (Auto) 0.9 % (0.0-4.3); Hematocrit 37.1 % (35.5-45.6); Hemoglobin 12.4 gm/dl (11.8-15.2); Lymphocytes # (Auto) 1.4 K/mm3 (1.2-5.4); Lymphocytes % (Auto) 28.9 % (13.4-35.0); Mean Corpuscular HGB Conc 34 % (32-34); Mean Corpuscular Volume 90 fl (84-94); Monocytes # (Auto) 0.6 K/mm3 (0.0-0.8); Monocytes % (Auto) 11.7 % (0.0-7.3); Platelet Count 292 K/mm3 (140-440); Red Blood Count 4.11 M/mm3 (3.65-5.03); Red Cell Distribution Width 14.1 % (13.2-15.2)
[2020-05-16 06:09] LABS: BUN/Creatinine Ratio 13; Blood Urea Nitrogen 12 mg/dL (9-20); Calcium 8.5 mg/dL (8.4-10.2); Hemolysis Index 3
[2020-05-16] MEDS: INSULIN LISPRO 100 UNIT/ML SUB-Q SCH ×4 (08:43→22:30)
--- NOTE | 2020-05-16 09:15 | Progress Note ---
Assessment and Plan - Patient Problems (1) Cardiopulmonary arrest Current Visit: Yes Status: Acute (2) Altered mental status Current Visit: Yes Status: Acute Qualifiers: Altered mental status type: unspecified Qualified Code(s): R41.82 - Altered mental status, unspecified (3) Alcohol intoxication Current Visit: Yes Status: Acute (4) History of cardiomyopathy Current Visit: Yes Status: Chronic (5) Cardiac pacemaker in situ Current Visit: Yes Status: Chronic (6) HTN (hypertension) Current Visit: Yes Status: Chronic (7) Diabetes Current Visit: Yes Status: Chronic (8) Cocaine use Current Visit: Yes Status: Chronic Subjective Date of service: 05/16/20 Objective Vital Signs Temp Pulse Resp BP BP Pulse Ox 05/16/20 08:51 98.4 F 85 20 125/60 97 05/16/20 03:45 97.6 F 84 20 112/70 96 05/16/20 00:00 93 H 05/15/20 22:52 98.4 F 64 20 132/64 96 05/15/20 20:50 114/65 05/15/20 19:30 114/65 95 05/15/20 18:30 115/70 95 05/15/20 16:46 87 16 123/66 95 05/15/20 15:46 113/57 95 05/15/20 15:30 124/64 05/15/20 14:46 93 H 11 L 119/65 05/15/20 14:30 95 H 14 119/65 96 05/15/20 14:16 92 H 15 133/67 05/15/20 14:00 90 16 133/67 94 05/15/20 13:46 87 12 127/74 93 05/15/20 13:30 87 11 L 136/74 97 05/15/20 13:16 86 11 L 127/74 96 05/15/20 13:00 84 11 L 127/74 97 05/15/20 12:30 85 12 148/82 96 05/15/20 12:00 87 13 122/62 97 05/15/20 11:46 86 11 L 126/67 97 05/15/20 11:35 98 05/15/20 11:15 132/67 97 05/15/20 11:00 126/67 96 05/15/20 10:46 132/67 97 05/15/20 10:30 94 H 23 122/68 92 05/15/20 10:16 86 12 132/77 100 05/15/20 10:00 85 12 130/76 99 05/15/20 09:45 91 H 12 127/76 99 05/15/20 09:30 84 12 121/74 99 05/15/20 09:16 85 10 L 117/69 98 - Physical Examination Neck: Positive: neck supple, trachea midline Neuro: Positive: Other (agitated, intubated) Skin: Negative: Rash Extremities: Absent: edema - Labs and Meds Coagulation 05/16/20 Range/Units 05:15 PT 13.1 (12.2-14.9) Sec. INR 1.00 (0.87-1.13) CBC 05/16/20 Range/Units 05:15 WBC 4.8 (4.5-11.0) K/mm3 RBC 4.11 (3.65-5.03) M/mm3 Hgb 12.4 (11.8-15.2) gm/dl Hct 37.1 (35.5-45.6) % Plt Count 292 (140-440) K/mm3 Lymph # (Auto) 1.4 (1.2-5.4) K/mm3 [place] # (Auto) 0.6 (0.0-0.8) K/mm3 Eos # (Auto) 0.0 (0.0-0.4) K/mm3 Baso # (Auto) 0.0 (0.0-0.1) K/mm3 Comprehensive Metabolic Panel 05/16/20 Range/Units 05:15 Sodium 138 (137-145) mmol/L Potassium 3.7 (3.6-5.0) mmol/L Chloride 101.3 (98-107) mmol/L Carbon Dioxide 29 (22-30) mmol/L BUN 12 (9-20) mg/dL Creatinine 0.9 (0.8-1.3) mg/dL Glucose 162 H (75-100) mg/dL Calcium 8.5 (8.4-10.2) mg/dL - Imaging and Cardiology EKG: report reviewed, image reviewed Echo: pending, report reviewed (Echo done 06/2019 showed EF 50-55%, impaired relaxation, pacemaker wire in RA, negative bubble study. ) - EKG Sinus rhythms and dysrhythmias: sinus rhythm
[2020-05-16] MEDS ORDERED: ASPIRIN EC 325 MG TAB PO SCH (10:00)
--- NOTE | 2020-05-16 12:40 | Progress Note ---
Assessment and Plan Assessment and plan: --Cardiac arrest Likely from cocaine overdose. Patient was reportedly having chest pain prior to cardiac arrest. Urine toxin positive for cocaine Has a history of dilated cardiomyopathy with EF 30 to 35%. Echo currently shows normal LV function - EF 50-55% ----Congestive heart failure [systolic] EF wnl normal as per recent echo ---s/p pacemaker for bradycardia PPM interrogation as per cardio ---Cocaine abuse Drug abuse counseling provided ----Diabetes mellitus Insulin regimen DVT prophylaxis-Lovenox Full code History Interval history: No complaints this AM Echo showed normal LV systolic function Hospitalist Physical - Physical exam Narrative exam: VITAL SIGNS: Reviewed. GENERAL: awake EYES: Pupils are equal. Extraocular motions intact. MOUTH: Oropharynx is normal. NECK: No adenopathy, no JVD. CHEST: Chest with diminished breath sounds bilaterally. No wheezes, rales, or rhonchi. CARDIAC: normal S1 and S2, without murmurs, gallops, or rubs. ABDOMEN: Soft, non tender and non distended. No rebound or guarding, and no masses palpated. Bowel Sounds normal. MUSCULOSKELETAL: No edema NEUROLOGIC EXAM: Awake SKIN: No obvious lesions - Constitutional Vitals: Temp Pulse Resp BP Pulse Ox 98.1 F 72 17 128/77 98 05/16/20 12:01 05/16/20 12:01 05/16/20 12:01 05/16/20 12:01 05/16/20 12:01 HEART Score - HEART Score EKG: Non-specific Age: 45-65 Risk factors: > 3 risk factors or hx of atherosclerotic disease Troponin: Troponin T < 0.010 ng/mL (0.00-0.029) 05/15/20 12:12 Troponin: < normal limit Results - Labs CBC & Chem 7: 05/16/20 05:15 05/16/20 05:15 Labs: Laboratory Last Values WBC 4.8 K/mm3 (4.5-11.0) 05/16/20 05:15 RBC 4.11 M/mm3 (3.65-5.03) 05/16/20 05:15 Hgb 12.4 gm/dl (11.8-15.2) 05/16/20 05:15 Hct 37.1 % (35.5-45.6) 05/16/20 05:15 MCV 90 fl (84-94) 05/16/20 05:15 MCH 30 pg (28-32) 05/16/20 05:15 MCHC 34 % (32-34) 05/16/20 05:15 RDW 14.1 % (13.2-15.2) 05/16/20 05:15 Plt Count 292 K/mm3 (140-440) 05/16/20 05:15 Lymph % (Auto) 28.9 % (13.4-35.0) 05/16/20 05:15 [place] % (Auto) 11.7 % (0.0-7.3) H 05/16/20 05:15 Eos % (Auto) 0.9 % (0.0-4.3) 05/16/20 05:15 Baso % (Auto) 0.4 % (0.0-1.8) 05/16/20 05:15 Lymph # (Auto) 1.4 K/mm3 (1.2-5.4) 05/16/20 05:15 [place] # (Auto) 0.6 K/mm3 (0.0-0.8) 05/16/20 05:15 Eos # (Auto) 0.0 K/mm3 (0.0-0.4) 05/16/20 05:15 Baso # (Auto) 0.0 K/mm3 (0.0-0.1) 05/16/20 05:15 Seg Neutrophils % 58.1 % (40.0-70.0) 05/16/20 05:15 Seg Neutrophils # 2.8 K/mm3 (1.8-7.7) 05/16/20 05:15 PT 13.1 Sec. (12.2-14.9) 05/16/20 05:15 INR 1.00 (0.87-1.13) 05/16/20 05:15 ABG pH 7.407 (7.320-7.450) 05/15/20 06:47 POC ABG pCO2 39.4 mmHg (32.0-48.0) 05/15/20 06:47 POC ABG pO2 77.7 mmHg (83-108) L 05/15/20 06:47 POC ABG HCO3 24.2 05/15/20 06:47 POC ABG Base Excess -0.3 05/15/20 06:47 ABG Hemoglobin 12.9 (12.0-17.5) 05/15/20 06:47 ABG Sodium 137.9 mmol/L (136.0-145.0) 05/15/20 06:47 ABG Potassium 3.6 mmol/L (3.40-4.50) 05/15/20 06:47 ABG Chloride 101.0 mmol/L (98-107) 05/15/20 06:47 ABG Glucose 273 mg/dL (65-95) H 05/15/20 06:47 FiO2 30 05/15/20 06:47 Sodium 138 mmol/L (137-145) 05/16/20 05:15 Potassium 3.7 mmol/L (3.6-5.0) 05/16/20 05:15 Chloride 101.3 mmol/L (98-107) 05/16/20 05:15 Carbon Dioxide 29 mmol/L (22-30) 05/16/20 05:15 Anion Gap 11 mmol/L 05/16/20 05:15 BUN 12 mg/dL (9-20) 05/16/20 05:15 Creatinine 0.9 mg/dL (0.8-1.3) 05/16/20 05:15 Estimated GFR > 60 ml/min 05/16/20 05:15 BUN/Creatinine Ratio 13 % 05/16/20 05:15 Glucose 162 mg/dL (75-100) H 05/16/20 05:15 POC Glucose 173 mg/dL (70-105) H 05/16/20 07:54 Calcium 8.5 mg/dL (8.4-10.2) 05/16/20 05:15 Magnesium 2.10 mg/dL (1.7-2.3) 05/15/20 02:50 Total Bilirubin 1.00 mg/dL (0.1-1.2) 05/15/20 02:50 AST 22 units/L (5-40) 05/15/20 02:50 ALT 27 units/L (7-56) 05/15/20 02:50 Alkaline Phosphatase 82 units/L (35-129) 05/15/20 02:50 Total Creatine Kinase 609 units/L (55-170) H 05/15/20 02:50 CK-MB (CK-2) 6.2 ng/mL (0.0-4.0) H 05/15/20 02:50 CK-MB (CK-2) Rel Index 1.0 (0-4) 05/15/20 02:50 Troponin T < 0.010 ng/mL (0.00-0.029) 05/15/20 12:12 NT-Pro-B Natriuret Pep 88.87 pg/mL (0-900) 05/15/20 02:50 Total Protein 7.1 g/dL (6.3-8.2) 05/15/20 02:50 Albumin 4.7 g/dL (3.9-5) 05/15/20 02:50 Albumin/Globulin Ratio 2.0 % 05/15/20 02:50 Arterial Blood Glucose 273 mg/dL (65-95) H 05/15/20 06:47 Arterial Blood Ionized Calcium 4.5 mg/dL (4.6-5.3) L 05/15/20 06:47 Urine Opiates Screen Presumptive negative 05/15/20 Unknown Urine Methadone Screen Presumptive negative 05/15/20 Unknown Ur Barbiturates Screen Presumptive negative 05/15/20 Unknown Ur Phencyclidine Scrn Presumptive negative 05/15/20 Unknown Ur Amphetamines Screen Presumptive negative 05/15/20 Unknown U Benzodiazepines Scrn Presumptive negative 05/15/20 Unknown Urine Cocaine Screen Presumptive positive 05/15/20 Unknown U Marijuana (THC) Screen Presumptive negative 05/15/20 Unknown Drugs of Abuse Note Disclamer 05/15/20 Unknown Plasma/Serum Alcohol 0.11 % (0-0.07) H 05/15/20 02:50 - Diagnostic Impressions Diagnostic Impressions: Echocardiogram 05/15/20 05:04 Transthoracic Echocardiogram Indication: Chest pain BP: 117/79 HR: 85 Conclusions *The left ventricular chamber size is normal. *Mild concentric left ventricular hypertrophy is observed. *Global left ventricular wall motion and contractility are within normal limits. *The estimated ejection fraction is 50-55%. *The left atrial chamber size is normal. *The right ventricular cavity size is normal. *A pacemaker wire is visualized in the right ventricle. *The right ventricular systolic pressure is calculated at 38 mmHg. Findings Left Ventricle: The left ventricular chamber size is normal. Mild concentric left ventricular hypertrophy is observed. Global left ventricular wall motion and contractility are within normal limits. Global left ventricular systolic function is normal. The estimated ejection fraction is 50-55%. Abnormal left ventricular diastolic filling is observed, consistent with impaired relaxation. Left Atrium: The left atrial chamber size is normal. Right Ventricle: The right ventricular cavity size is normal. A pacemaker wire is visualized in the right ventricle. Right Atrium: The right atrial cavity size is normal. A pacemaker wire is visualized in the right atrium. Aortic Valve: The aortic valve structure is normal. Mitral Valve: The mitral valve leaflets appear normal. There is trace of mitral regurgitation. Tricuspid Valve: The tricuspid valve leaflets are normal. There is mild tricuspid regurgitation. The right ventricular systolic pressure is calculated at 38 mmHg. Pulmonic Valve: The pulmonic valve appears normal. There is trace pulmonic regurgitation. Pericardium: There is no pericardial effusion. Venous: The inferior vena cava is dilated. There is a greater than 50% respiratory change in the inferior vena cava dimension. Measurements Chambers 2D Name Value Normal Range IVSd (2D) 1.1 cm (0.6 - 1.1) LVPWd (2D) 1.14 cm (0.6 - 1.1) LVIDd (2D) 4.64 cm (3.7 - 5.6) LVIDs (2D) 3.59 cm (2 - 3.8) LV FS (2D) 22.66 % - EF Teichholz (2D) 45.62 % - Ao root diameter (2D) 2.43 cm (2 - 3.7) Volumes/Mass Name Value Normal Range LA ESV SP 4CH (A/L) 28.5 ml - LA ESV SP 2CH (A/L) 34.82 ml - LA ESV BP (A/L) 32.26 ml - LA ESV BP (A/L) index 18.44 ml/m2 - LA ESV SP 4CH (MOD) 27.47 ml - LA ESV SP 2CH (MOD) 33.4 ml - LA ESV BP (MOD) 30.83 ml - LA ESV BP (MOD) index 17.62 ml/m2 - Diastolic/Systolic Function Name Value Normal Range MV E-wave Vmax 0.81 m/sec - MV deceleration time 148.97 msec - MV A-wave Vmax 0.78 m/sec - MV E:A ratio 1.04 ratio - Aortic Valve Name Value Normal Range AV Vmax 1.46 m/sec - AV VTI 28.16 cm - AV peak gradient 8.58 mmHg - AV mean gradient 4.25 mmHg - LVOT diameter 2.01 cm - LVOT Vmax 1.17 m/sec - LVOT VTI 22.35 cm - LVOT peak gradient 5.5 mmHg - LVOT mean gradient 3.18 mmHg - SV LVOT 70.64 ml - MOLLY (continuity Vmax) 2.53 cm2 - MOLLY (continuity VTI) 2.51 cm2 - Tricuspid Valve Name Value Normal Range TR Vmax 2.75 m/sec - TR peak gradient 30 mmHg - RAP 8 mmHg - RVSP 38 mmHg - IVC diameter 2.57 cm (1.2 - 2.3) Pulmonic Valve/Qp:Qs Name Value Normal Range PV Vmax 1.01 m/sec - PV peak gradient 4.06 mmHg - PV acceleration time 114.18 msec - Griggs/IV: Voiding Method Urinal Active Medications - Current Medications Current Medications: Generic Name Dose Route Start Last Admin Trade Name Freq PRN Reason Stop Dose Admin Dextrose 0 ml 05/15/20 04:59 Dextrose 50% In Water (25gm) 50 Ml Syringe IV Q30MIN PRN Hypoglycemia Protocol Enoxaparin Sodium 40 mg 05/15/20 22:00 05/15/20 21:38 Enoxaparin 40 Mg/0.4 Ml Inj SUB-Q 40 mg QDAY@2200 [facility] Administration Protocol Hydromorphone HCl 1 mg 05/15/20 20:23 Hydromorphone 1 Mg/1 Ml Inj IV Q3H PRN Pain , Severe (7-10) Hydrophilic Ointment 1 applic 05/15/20 02:29 Lip Therapy Vaseline TP Q2HR PRN Dry Lips Insulin Human Lispro 0 unit 05/15/20 22:00 05/16/20 11:58 Insulin Lispro 100 Unit/Ml SUB-Q 3 unit ACHS [facility] Administration Protocol Multi-Ingred Cream/Lotion/Oil/Oint 1 applic 05/15/20 02:29 Mineral Oil/Petrolatum, White Ophth Oint 3.5 Gm OU Q4HR PRN Dry Eye(s) Multi-Ingred Cream/Lotion/Oil/Oint 1 applic 05/15/20 07:51 Mineral Oil/Petrolatum, White Ophth Oint 3.5 Gm OU Q4HR PRN Dry Eye(s) Sodium Chloride 10 ml 05/15/20 10:00 05/16/20 09:55 Sodium Chloride 0.9% 10 Ml Flush Syringe IV 10 ml BID ROSALINDA Administration Nutrition/Malnutrition Assess - Dietary Evaluation Nutrition/Malnutrition Findings: Nutrition Notes Start: 05/15/20 10:34 Freq: Status: Active Protocol: Document 05/15/20 10:34 CODY (Rec: 05/15/20 10:37 CODY [id number]) Co-Sign 05/15/20 10:34 MK Nutrition Notes Need for Assessment generated from: MD Order Initial or Follow up Brief Note Current Diagnosis Coronary Artery Disease, Diabetes,Hypertension,Heart Failure Other Pertinent Diagnosis Cardiac arrest and ETOH intoxication. PMH: CVA Current Diet NPO Height 5 ft 5 in Weight 68 kg [place] Body Weight (kg) 61.81 BMI 24.9 Subjective/Other Information MD consult for nutritional intake. Pt still in ED hold and not appropriate at this time for nutritional assessment of history. Pt adm 05/15/20 at 02:06. Is patient on ventilator? No Is Patient Ambulatory and/or Out of Bed No REE-([facility]-confined to bed) 3114.659 Calculation Used for Recommendations [facility] Additional Notes Protein 1.2-2 g/k-136 g Fluid: 1ml/kcal Nutrition Intervention Change Diet Order: Diet advancement to PO once medically able or TF if necessary. Nutrition Support: If TF necessary, recommend Promote at 70 ml/hr. Flush 50 ml q4hr. Kcal 1,680 Protein (gm) 105 Fluid (mL) 1,410 Follow-Up By: 05/17/20 Additional Comments F/u full assessment, evaluate nutritonal intakes
--- NOTE | 2020-05-16 14:42 | Progress Note ---
Assessment and Plan tte reviewed - EF 50-55%, mild LVH, pacemaker wire in RV. PPM interrogated - no acute events, normal device function. Currently stable cardiac status. Pt may discharge from cardiology standpoint on home cardiac regimen. Recommend follow up in our office with Dr. Sidhu within 2 weeks ([phone]). The patient has been seen in conjunction with Dr. Sidhu who agrees with the assessment and plan of care. - Patient Problems (1) Cardiopulmonary arrest Current Visit: Yes Status: Suspected (2) Altered mental status Current Visit: Yes Status: Acute Qualifiers: Altered mental status type: unspecified Qualified Code(s): R41.82 - Altered mental status, unspecified (3) Alcohol intoxication Current Visit: Yes Status: Acute (4) History of cardiomyopathy Current Visit: Yes Status: Chronic (5) Cardiac pacemaker in situ Current Visit: Yes Status: Chronic (6) HTN (hypertension) Current Visit: Yes Status: Chronic (7) Diabetes Current Visit: Yes Status: Chronic (8) Cocaine use Current Visit: Yes Status: Chronic Subjective Date of service: 05/16/20 Principal diagnosis: AMS Interval history: pt resting in bed, no current cardiac complaints. tele reviewed - in SR HR 80s. Objective Last Vital Signs Temp 98.1 F 05/16/20 12:01 Pulse 72 05/16/20 12:01 Resp 17 05/16/20 12:01 BP 128/77 05/16/20 12:01 Pulse Ox 98 05/16/20 12:01 - Physical Examination General: No Apparent Distress HEENT: Positive: PERRL Neck: Positive: neck supple, trachea midline Cardiac: Positive: Reg Rate and Rhythm, S1/S2 Lungs: Positive: Decreased Breath Sounds Neuro: Positive: Grossly Intact Abdomen: Negative: Tender Skin: Negative: Rash Musculoskeletal: No Pain Extremities: Absent: edema - Labs and Meds Coagulation 05/16/20 Range/Units 05:15 PT 13.1 (12.2-14.9) Sec. INR 1.00 (0.87-1.13) CBC 05/16/20 Range/Units 05:15 WBC 4.8 (4.5-11.0) K/mm3 RBC 4.11 (3.65-5.03) M/mm3 Hgb 12.4 (11.8-15.2) gm/dl Hct 37.1 (35.5-45.6) % Plt Count 292 (140-440) K/mm3 Lymph # (Auto) 1.4 (1.2-5.4) K/mm3 [place] # (Auto) 0.6 (0.0-0.8) K/mm3 Eos # (Auto) 0.0 (0.0-0.4) K/mm3 Baso # (Auto) 0.0 (0.0-0.1) K/mm3 Comprehensive Metabolic Panel 05/16/20 Range/Units 05:15 Sodium 138 (137-145) mmol/L Potassium 3.7 (3.6-5.0) mmol/L Chloride 101.3 (98-107) mmol/L Carbon Dioxide 29 (22-30) mmol/L BUN 12 (9-20) mg/dL Creatinine 0.9 (0.8-1.3) mg/dL Glucose 162 H (75-100) mg/dL Calcium 8.5 (8.4-10.2) mg/dL - Imaging and Cardiology EKG: report reviewed, image reviewed Echo: report reviewed (Echo done 06/2019 showed EF 50-55%, impaired relaxation, pacemaker wire in RA, negative bubble study. ) - Telemetry EKG Rhythm: Sinus Rhythm - EKG Sinus rhythms and dysrhythmias: sinus rhythm
--- NOTE | 2020-05-16 14:52 | Discharge Summary ---
Providers - Providers Date of Admission: 05/15/20 04:48 Date of discharge: 05/17/20 Attending physician: SPENCER GHOTRA 05/15/20 02:29 Consult to Dietitian/Nutrition [CONS] Routine Physician Instructions: Reason For Exam: Reason for Consult: Evaluate nutritional intake 05/15/20 07:51 Consult to Dietitian/Nutrition [CONS] Routine Physician Instructions: Reason For Exam: Reason for Consult: Evaluate nutritional intake Primary care physician: MOTO MIX OPERATOR Hospitalization Condition: Serious Hospital course: HPI 54-year-old -[place] male with multiple medical problems including CHF, coronary artery disease with stent placement in the past, diabetes mellitus, CVA, hypertension and history of defibrillator in place was brought in by EMS today with complaints of cardiac arrest. Patient was said to have been at [facility] when he was said to be having chest pain. Bystanders indicates that his AICD fired about 4 times and patient was said to have become unresponsive subsequently. CPR was commenced by EMS. Upon arrival in the emergency room patient was subsequently intubated. Work-up in the emergency room today, significant findings were in the UDS with cocaine positive. Patient has been admitted with cardiac arrest. He has been started on amiodarone drip from the emergency room. Hospital course. Patient was transferred to the ICU intubated. Patient was seen by cardiology and patient had an echocardiogram performed that showed no impaired LV function. Amiodarone drip discontinued. Patient was extubated without any issues. Pacemaker was interrogated and no acute events were noted (apparently patient did not have a cardiac arrest]. Patient has been counseled on cocaine cessation. He has been cleared by cardiology for discharge. He remains hemodynamically stable and agrees with plan to continue home medications and follow-up with cardiology in the office. Has poor living condition so this will need to be addressed prior to DC. Disposition: DC-01 TO HOME OR SELFCARE Time spent for discharge: 35 mins - Discharge Diagnoses (1) Alcohol intoxication Status: Acute (2) Altered mental status Status: Acute Qualifiers: Altered mental status type: unspecified Qualified Code(s): R41.82 - Altered mental status, unspecified (3) Cardiac arrest Status: Acute (4) Cocaine abuse Status: Chronic Core Measure Documentation - Palliative Care Palliative Care/ Comfort Measures: Not Applicable - Core Measures Any of the following diagnoses?: none Exam - Physical Exam Narrative exam: VITAL SIGNS: Reviewed. GENERAL: Awake and alert EYES: Pupils are equal. Extraocular motions intact. MOUTH: Oropharynx is normal. NECK: No adenopathy, no JVD. CHEST: Chest with diminished breath sounds bilaterally. No wheezes, rales, or rhonchi. CARDIAC: normal S1 and S2, without murmurs, gallops, or rubs. ABDOMEN: Soft, non tender and non distended. No rebound or guarding, and no masses palpated. Bowel Sounds normal. MUSCULOSKELETAL: No edema NEUROLOGIC EXAM: Awake, alert and oriented x3 SKIN: No obvious lesions - Constitutional Vitals: Temp Pulse Resp BP Pulse Ox 98.1 F 72 17 128/77 98 05/16/20 12:01 05/16/20 12:01 05/16/20 12:01 05/16/20 12:01 05/16/20 12:01 Plan Activity: no restrictions Additional Instructions: Stop alcohol abuse. Stop cocaine abuse. Follow-up with public safety police [Dr. Sidhu] within 2 weeks ([phone]). Continue usual home medications Follow up with: PRIMARY CARE, [Primary Care Provider] - 3-5 Days
[2020-05-16] MEDS: ENOXAPARIN 40 MG/0.4 ML INJ SUB-Q SCH (21:40)
[2020-05-16] MEDS ORDERED: diphenhydrAMINE 25 MG CAP PO ONE (22:43)
[2020-05-17 04:35] VITALS: BP 131/76
[2020-05-17] MEDS: INSULIN LISPRO 100 UNIT/ML SUB-Q SCH (08:00)
--- NOTE | 2020-05-17 11:01 | Progress Note ---
Assessment and Plan Assessment and plan: --Cardiac arrest Likely from cocaine overdose. Patient was reportedly having chest pain prior to cardiac arrest. Urine toxin positive for cocaine Has a history of dilated cardiomyopathy with EF 30 to 35%. Echo currently shows normal LV function - EF 50-55% Cardiology cleared for DC ----Congestive heart failure [systolic] EF wnl normal as per recent echo ---s/p pacemaker for bradycardia PPM interrogation as per cardio ---Cocaine abuse Drug abuse counseling provided ----Diabetes mellitus Insulin regimen DVT prophylaxis-Lovenox Full code Discharge planning - Living condition as per is poor. DC cancelled - Patient Problems (1) Alcohol intoxication Current Visit: Yes Status: Acute (2) Altered mental status Current Visit: Yes Status: Acute Qualifiers: Altered mental status type: unspecified Qualified Code(s): R41.82 - Altered mental status, unspecified (3) Cardiac arrest Current Visit: Yes Status: Acute (4) Cocaine abuse Current Visit: Yes Status: Chronic History Interval history: For discharge but home condition is poor as per social work job titles. Hospitalist Physical - Physical exam Narrative exam: VITAL SIGNS: Reviewed. GENERAL: Awake and alert EYES: Pupils are equal. Extraocular motions intact. MOUTH: Oropharynx is normal. NECK: No adenopathy, no JVD. CHEST: Chest with diminished breath sounds bilaterally. No wheezes, rales, or rhonchi. CARDIAC: normal S1 and S2, without murmurs, gallops, or rubs. ABDOMEN: Soft, non tender and non distended. No rebound or guarding, and no masses palpated. Bowel Sounds normal. MUSCULOSKELETAL: No edema NEUROLOGIC EXAM: Awake, alert and oriented x3 SKIN: No obvious lesions - Constitutional Vitals: Temp Pulse Resp BP Pulse Ox 99.2 F 87 14 131/76 96 05/17/20 04:33 05/17/20 08:44 05/17/20 08:44 05/17/20 04:33 05/17/20 08:44 HEART Score - HEART Score EKG: Non-specific Age: 45-65 Risk factors: > 3 risk factors or hx of atherosclerotic disease Troponin: Troponin T < 0.010 ng/mL (0.00-0.029) 05/15/20 12:12 Troponin: < normal limit Results - Labs CBC & Chem 7: 05/16/20 05:15 05/16/20 05:15 Labs: Laboratory Last Values WBC 4.8 K/mm3 (4.5-11.0) 05/16/20 05:15 RBC 4.11 M/mm3 (3.65-5.03) 05/16/20 05:15 Hgb 12.4 gm/dl (11.8-15.2) 05/16/20 05:15 Hct 37.1 % (35.5-45.6) 05/16/20 05:15 MCV 90 fl (84-94) 05/16/20 05:15 MCH 30 pg (28-32) 05/16/20 05:15 MCHC 34 % (32-34) 05/16/20 05:15 RDW 14.1 % (13.2-15.2) 05/16/20 05:15 Plt Count 292 K/mm3 (140-440) 05/16/20 05:15 Lymph % (Auto) 28.9 % (13.4-35.0) 05/16/20 05:15 [place] % (Auto) 11.7 % (0.0-7.3) H 05/16/20 05:15 Eos % (Auto) 0.9 % (0.0-4.3) 05/16/20 05:15 Baso % (Auto) 0.4 % (0.0-1.8) 05/16/20 05:15 Lymph # (Auto) 1.4 K/mm3 (1.2-5.4) 05/16/20 05:15 [place] # (Auto) 0.6 K/mm3 (0.0-0.8) 05/16/20 05:15 Eos # (Auto) 0.0 K/mm3 (0.0-0.4) 05/16/20 05:15 Baso # (Auto) 0.0 K/mm3 (0.0-0.1) 05/16/20 05:15 Seg Neutrophils % 58.1 % (40.0-70.0) 05/16/20 05:15 Seg Neutrophils # 2.8 K/mm3 (1.8-7.7) 05/16/20 05:15 PT 13.1 Sec. (12.2-14.9) 05/16/20 05:15 INR 1.00 (0.87-1.13) 05/16/20 05:15 ABG pH 7.407 (7.320-7.450) 05/15/20 06:47 POC ABG pCO2 39.4 mmHg (32.0-48.0) 05/15/20 06:47 POC ABG pO2 77.7 mmHg (83-108) L 05/15/20 06:47 POC ABG HCO3 24.2 05/15/20 06:47 POC ABG Base Excess -0.3 05/15/20 06:47 ABG Hemoglobin 12.9 (12.0-17.5) 05/15/20 06:47 ABG Sodium 137.9 mmol/L (136.0-145.0) 05/15/20 06:47 ABG Potassium 3.6 mmol/L (3.40-4.50) 05/15/20 06:47 ABG Chloride 101.0 mmol/L (98-107) 05/15/20 06:47 ABG Glucose 273 mg/dL (65-95) H 05/15/20 06:47 FiO2 30 05/15/20 06:47 Sodium 138 mmol/L (137-145) 05/16/20 05:15 Potassium 3.7 mmol/L (3.6-5.0) 05/16/20 05:15 Chloride 101.3 mmol/L (98-107) 05/16/20 05:15 Carbon Dioxide 29 mmol/L (22-30) 05/16/20 05:15 Anion Gap 11 mmol/L 05/16/20 05:15 BUN 12 mg/dL (9-20) 05/16/20 05:15 Creatinine 0.9 mg/dL (0.8-1.3) 05/16/20 05:15 Estimated GFR > 60 ml/min 05/16/20 05:15 BUN/Creatinine Ratio 13 % 05/16/20 05:15 Glucose 162 mg/dL (75-100) H 05/16/20 05:15 POC Glucose 262 mg/dL (70-105) H 05/17/20 08:06 Calcium 8.5 mg/dL (8.4-10.2) 05/16/20 05:15 Magnesium 2.10 mg/dL (1.7-2.3) 05/15/20 02:50 Total Bilirubin 1.00 mg/dL (0.1-1.2) 05/15/20 02:50 AST 22 units/L (5-40) 05/15/20 02:50 ALT 27 units/L (7-56) 05/15/20 02:50 Alkaline Phosphatase 82 units/L (35-129) 05/15/20 02:50 Total Creatine Kinase 609 units/L (55-170) H 05/15/20 02:50 CK-MB (CK-2) 6.2 ng/mL (0.0-4.0) H 05/15/20 02:50 CK-MB (CK-2) Rel Index 1.0 (0-4) 05/15/20 02:50 Troponin T < 0.010 ng/mL (0.00-0.029) 05/15/20 12:12 NT-Pro-B Natriuret Pep 88.87 pg/mL (0-900) 05/15/20 02:50 Total Protein 7.1 g/dL (6.3-8.2) 05/15/20 02:50 Albumin 4.7 g/dL (3.9-5) 05/15/20 02:50 Albumin/Globulin Ratio 2.0 % 05/15/20 02:50 Arterial Blood Glucose 273 mg/dL (65-95) H 05/15/20 06:47 Arterial Blood Ionized Calcium 4.5 mg/dL (4.6-5.3) L 05/15/20 06:47 Urine Opiates Screen Presumptive negative 05/15/20 Unknown Urine Methadone Screen Presumptive negative 05/15/20 Unknown Ur Barbiturates Screen Presumptive negative 05/15/20 Unknown Ur Phencyclidine Scrn Presumptive negative 05/15/20 Unknown Ur Amphetamines Screen Presumptive negative 05/15/20 Unknown U Benzodiazepines Scrn Presumptive negative 05/15/20 Unknown Urine Cocaine Screen Presumptive positive 05/15/20 Unknown U Marijuana (THC) Screen Presumptive negative 05/15/20 Unknown Drugs of Abuse Note Disclamer 05/15/20 Unknown Plasma/Serum Alcohol 0.11 % (0-0.07) H 05/15/20 02:50 - Diagnostic Impressions Diagnostic Impressions: Echocardiogram 05/15/20 05:04 Transthoracic Echocardiogram Indication: Chest pain BP: 117/79 HR: 85 Conclusions *The left ventricular chamber size is normal. *Mild concentric left ventricular hypertrophy is observed. *Global left ventricular wall motion and contractility are within normal limits. *The estimated ejection fraction is 50-55%. *The left atrial chamber size is normal. *The right ventricular cavity size is normal. *A pacemaker wire is visualized in the right ventricle. *The right ventricular systolic pressure is calculated at 38 mmHg. Findings Left Ventricle: The left ventricular chamber size is normal. Mild concentric left ventricular hypertrophy is observed. Global left ventricular wall motion and contractility are within normal limits. Global left ventricular systolic function is normal. The estimated ejection fraction is 50-55%. Abnormal left ventricular diastolic filling is observed, consistent with impaired relaxation. Left Atrium: The left atrial chamber size is normal. Right Ventricle: The right ventricular cavity size is normal. A pacemaker wire is visualized in the right ventricle. Right Atrium: The right atrial cavity size is normal. A pacemaker wire is visualized in the right atrium. Aortic Valve: The aortic valve structure is normal. Mitral Valve: The mitral valve leaflets appear normal. There is trace of mitral regurgitation. Tricuspid Valve: The tricuspid valve leaflets are normal. There is mild tricuspid regurgitation. The right ventricular systolic pressure is calculated at 38 mmHg. Pulmonic Valve: The pulmonic valve appears normal. There is trace pulmonic regurgitation. Pericardium: There is no pericardial effusion. Venous: The inferior vena cava is dilated. There is a greater than 50% respiratory change in the inferior vena cava dimension. Measurements Chambers 2D Name Value Normal Range IVSd (2D) 1.1 cm (0.6 - 1.1) LVPWd (2D) 1.14 cm (0.6 - 1.1) LVIDd (2D) 4.64 cm (3.7 - 5.6) LVIDs (2D) 3.59 cm (2 - 3.8) LV FS (2D) 22.66 % - EF Teichholz (2D) 45.62 % - Ao root diameter (2D) 2.43 cm (2 - 3.7) Volumes/Mass Name Value Normal Range LA ESV SP 4CH (A/L) 28.5 ml - LA ESV SP 2CH (A/L) 34.82 ml - LA ESV BP (A/L) 32.26 ml - LA ESV BP (A/L) index 18.44 ml/m2 - LA ESV SP 4CH (MOD) 27.47 ml - LA ESV SP 2CH (MOD) 33.4 ml - LA ESV BP (MOD) 30.83 ml - LA ESV BP (MOD) index 17.62 ml/m2 - Diastolic/Systolic Function Name Value Normal Range MV E-wave Vmax 0.81 m/sec - MV deceleration time 148.97 msec - MV A-wave Vmax 0.78 m/sec - MV E:A ratio 1.04 ratio - Aortic Valve Name Value Normal Range AV Vmax 1.46 m/sec - AV VTI 28.16 cm - AV peak gradient 8.58 mmHg - AV mean gradient 4.25 mmHg - LVOT diameter 2.01 cm - LVOT Vmax 1.17 m/sec - LVOT VTI 22.35 cm - LVOT peak gradient 5.5 mmHg - LVOT mean gradient 3.18 mmHg - SV LVOT 70.64 ml - MOLLY (continuity Vmax) 2.53 cm2 - MOLLY (continuity VTI) 2.51 cm2 - Tricuspid Valve Name Value Normal Range TR Vmax 2.75 m/sec - TR peak gradient 30 mmHg - RAP 8 mmHg - RVSP 38 mmHg - IVC diameter 2.57 cm (1.2 - 2.3) Pulmonic Valve/Qp:Qs Name Value Normal Range PV Vmax 1.01 m/sec - PV peak gradient 4.06 mmHg - PV acceleration time 114.18 msec - [place]gs/IV: Voiding Method Urinal Active Medications - Current Medications Current Medications: Generic Name Dose Route Start Last Admin Trade Name Freq PRN Reason Stop Dose Admin Dextrose 0 ml 05/15/20 04:59 Dextrose 50% In Water (25gm) 50 Ml Syringe IV Q30MIN PRN Hypoglycemia Protocol Enoxaparin Sodium 40 mg 05/15/20 22:00 05/16/20 21:40 Enoxaparin 40 Mg/0.4 Ml Inj SUB-Q 40 mg QDAY@2200 ROSALINDA Administration Protocol Hydromorphone HCl 1 mg 05/15/20 20:23 Hydromorphone 1 Mg/1 Ml Inj IV Q3H PRN Pain , Severe (7-10) Hydrophilic Ointment 1 applic 05/15/20 02:29 Lip Therapy Vaseline TP Q2HR PRN Dry Lips Insulin Human Lispro 0 unit 05/15/20 22:00 05/17/20 08:00 Insulin Lispro 100 Unit/Ml SUB-Q 3 unit ACHS ROSALINDA Administration Protocol Multi-Ingred Cream/Lotion/Oil/Oint 1 applic 05/15/20 02:29 Mineral Oil/Petrolatum, White Ophth Oint 3.5 Gm OU Q4HR PRN Dry Eye(s) Multi-Ingred Cream/Lotion/Oil/Oint 1 applic 05/15/20 07:51 Mineral Oil/Petrolatum, White Ophth Oint 3.5 Gm OU Q4HR PRN Dry Eye(s) Sodium Chloride 10 ml 05/15/20 10:00 05/17/20 09:21 Sodium Chloride 0.9% 10 Ml Flush Syringe IV 10 ml BID ROSALINDA Administration Nutrition/Malnutrition Assess - Dietary Evaluation Nutrition/Malnutrition Findings: Nutrition Notes Start: 05/15/20 10:34 Freq: Status: Active Protocol: Document 05/17/20 09:37 [email or web address] (Rec: 05/17/20 09:55 [email or web address] [id number]) Co-Sign 05/17/20 09:37 Nutrition Notes Initial or Follow up Assessment Current Diagnosis Coronary Artery Disease, Diabetes,Hypertension,Heart Failure Other Pertinent Diagnosis s/p cardiac arrest, ETOH intoxication, cocaine abuse PMH: CVA, pacemaker Current Diet Cardiac Diet Labs/Tests Reviewed Pertinent Medications Humalog Height 5 ft 5 in Weight 81.3 kg Usual Body Weight 93.18 kg Ruby Body Weight (kg) 61.81 BMI 29.8 Intake Prior to Admission Poor Weight change and time frame Wt changed noted likely d/t bedscale error Weight Status Overweight Subjective/Other Information F/U for full assessment. Pt states he has a poor appetite and wt loss of 10#s with unknown time frame. Pt was in a lot of leg pain at time of visit. Pt was very brief with information provided. Burn Absent Trauma Absent GI Symptoms None Food Allergy No Current % PO Negligible Minimum of two criteria No physical signs of malnutrition #1 Nutrition Diagnosis Inadequate oral intake Etiology Poor appetite and ETOH dependance As Evidenced by Signs and Symptoms Pt consuming less than 25% of PO intakes Is patient on ventilator? No Is Patient Ambulatory and/or Out of Bed Yes REE-([place]-St. Jeor-ambulatory/OOB) [ 2065.84 [id number]] Calculation Used for Recommendations Horace Ac Additional Notes Protein 1.2-2 g/k-136 g Fluid: 1ml/kcal Nutrition Intervention Change Diet Order: Continue Cardiac diet Add Supplement/Snack (indicate name/kcal Glucerna BID /protein ) Provides kCal: 440 Provides Protein (gm) 20 Goal #1 Meet at least 75% of energy and Protein needs Goal #2 ONS tolerance Anticipated Discharge Needs: Cardiac Diet Follow-Up By: 05/21/20 Additional Comments F/U for intakes and ONS tolerance
== END 2020-05-17 14:12 | disposition home or self-care (01) | DRG 313 ==
LOC: ED 02:06 → CC1 04:48 → 4A 17:25
PROVIDERS: ADMIT Internal Medicine Geriatric Medicine; ATTEND Internal Medicine
PROC: 0BH17EZ Insertion of Endotracheal Airway into Trachea, Via Natural or Artificial Opening (ICD-10-PCS; principal; 2020-05-15)
PROC: 5A1935Z Respiratory Ventilation, Less than 24 Consecutive Hours (ICD-10-PCS; 2020-05-15)
PROC: 4A033R1 Measurement of Arterial Saturation, Peripheral, Percutaneous Approach (ICD-10-PCS; 2020-05-15)
DX: R07.89 Other chest pain (principal); I46.9 Cardiac arrest, cause unspecified; I50.20 Unspecified systolic (congestive) heart failure; I42.9 Cardiomyopathy, unspecified; I25.10 Atherosclerotic heart disease of native coronary artery without angina pectoris; Z86.73 Personal history of transient ischemic attack (TIA), and cerebral infarction without residual deficits; I25.2 Old myocardial infarction; N40.0 Benign prostatic hyperplasia without lower urinary tract symptoms; J44.9 Chronic obstructive pulmonary disease, unspecified; I11.0 Hypertensive heart disease with heart failure; Z79.4 Long term (current) use of insulin; Z79.82 Long term (current) use of aspirin; F10.129 Alcohol abuse with intoxication, unspecified; Y90.9 Presence of alcohol in blood, level not specified; F14.10 Cocaine abuse, uncomplicated; Z95.810 Presence of automatic (implantable) cardiac defibrillator
CPT/HCPCS: 36415; 71045; 80048; 80053; 80307; 80320; 82550; 82553; 82805; 82962; 83735; 83880; 84484; 85025; 85610; 93005; 93306; 94002; 96365; 96367; 96375; G0378; G0480; J0282; J0330; J1650; J1815; J2250; J3010; J7060

== ENCOUNTER 2020-05-23 23:51 | Observation (INO) | payer SELFPAY ==
[2020-05-24] MEDS ORDERED: ASPIRIN 325 MG TAB PO ONE (00:13)
[2020-05-24] MEDS ORDERED: SODIUM CHLORIDE 0.9% 1000 ML 1,000 ML ONE (00:13)
[2020-05-24] MEDS ORDERED: SODIUM CHLORIDE 0.9% 1000 ML 1,000 ML IV ONE (00:13)
--- NOTE | 2020-05-24 00:17 | Emergency Department Report ---
ED Chest Pain HPI - General Chief Complaint: Chest Pain Stated Complaint: CHEST PAIN/BILATERAL LEG PAIN PUI?: No Time Seen by Provider: 05/24/20 00:12 Source: patient Mode of arrival: Ambulatory Limitations: No Limitations - History of Present Illness Initial Comments: Patient is a 44-year-old male presents emergency room with complaints of chest pain, syncopal episodes and bilateral leg pain. Patient states that his symptoms started 2 days ago. Patient states his symptoms are worsening. Patient dates he is passed out multiple times over the last 48 hours. Patient dates his chest pain is a 10 out of 10. Patient had sudden substernal chest pain. Patient states his leg pain is a 10 out of 10. Patient chest pain pain and leg pain are better with rest. Patient states that his chest pain is worse with exertion. Patient states that the leg pain is worse with movement. Patient states he had a cardiac arrest on May 15. Patient states he has multiple past medical history. Patient denies recent travel. Patient denies recent international travel. Patient denies exposure to the novel coronavirus. Patient denies sick contacts. Patient denies fever and chills. Patient denies cough. Patient denies diarr hea. Patient denies coming in contact with anybody with symptoms of the novel coronavirus. MD Complaint: chest pain -: Sudden Onset: during rest Pain Location: substernal, left chest Pain Radiation: none Severity: severe Severity scale (0 -10): 10 Quality: sharp Consistency: constant Improves With: rest Worsens With: exertion re: dyspnea. denies: nausea, vomting, diaphoresis, sense of impending doom Other Symptoms: syncope. denies: cough, fever, rash, acid taste in mouth, leg swelling, palpitations, burping Treatments Prior to Arrival: none Aspirin use within the Past 7 Days: (1) Yes - Related Data On Oral Contraceptives: No Home Medications Medication Instructions Recorded Confirmed Last Taken No Known Home Medications [No 05/16/20 05/16/20 Unknown Reported Home Medications] Allergies Allergy/AdvReac Type Severity Reaction Status Date / Time No Known Allergies Allergy Verified 01/24/18 08:29 Heart Score - HEART Score History: Moderately suspicious EKG: Non-specific Age: 45-65 Risk factors: > 3 risk factors or hx of atherosclerotic disease Troponin: < normal limit HEART Score: 5 ED Review of Systems ROS: Stated complaint: CHEST PAIN/BILATERAL LEG PAIN Other details as noted in HPI Constitutional: denies: chills, fever Eyes: denies: eye pain, eye discharge, vision change ENT: denies: ear pain, throat pain Respiratory: shortness of breath. denies: cough, wheezing Cardiovascular: chest pain. denies: palpitations Endocrine: no symptoms reported Gastrointestinal: denies: abdominal pain, nausea, diarrhea Genitourinary: denies: urgency, dysuria Musculoskeletal: denies: back pain, joint swelling, arthralgia Skin: denies: rash, lesions Neurological: as per HPI. denies: headache, weakness, paresthesias Psychiatric: denies: anxiety, depression Hematological/Lymphatic: denies: easy bleeding, easy bruising ED Past Medical Hx - Past Medical History Previous Medical History?: Yes Hx Hypertension: Yes Hx CVA: Yes Hx Heart Attack/AMI: Yes (x 2 with stents) Hx Congestive Heart Failure: Yes Hx Diabetes: Yes Hx Renal Disease: Yes Hx Asthma: No Hx COPD: Yes Hx HIV: No Additional medical history: BPH, Pacemaker - Surgical History Past Surgical History?: Yes Hx Coronary Stent: Yes Hx Pacemaker: Yes Hx Internal Defibrillator: Yes Hx Appendectomy: Yes Additional Surgical History: HERNIA SURGERY, Pacemaker - Family History Family history: no significant - Social History Smoking Status: Current Every Day Smoker Substance Use Type: None - Medications Home Medications: Home Medications Medication Instructions Recorded Confirmed Last Taken Type No Known Home Medications [No 05/16/20 05/16/20 Unknown History Reported Home Medications] ED Physical Exam - General Limitations: No Limitations General appearance: in no apparent distress, lethargic - Head Head exam: Present: atraumatic, normocephalic - Eye Eye exam: Present: normal appearance - ENT ENT exam: Present: mucous membranes moist - Neck Neck exam: Present: normal inspection - Respiratory Respiratory exam: Present: normal lung sounds bilaterally. Absent: respiratory distress - Cardiovascular Cardiovascular Exam: Present: regular rate, normal rhythm. Absent: systolic murmur, diastolic murmur, rubs, gallop - GI/Abdominal GI/Abdominal exam: Present: soft, normal bowel sounds - Rectal Rectal exam: Present: deferred - Extremities Exam Extremities exam: Present: normal inspection - Back Exam Back exam: Present: normal inspection - Neurological Exam Neurological exam: Present: altered, oriented X3, CN II-XII intact - Psychiatric Psychiatric exam: Present: normal affect, normal mood - Skin Skin exam: Present: warm, dry, intact, normal color. Absent: rash ED Course Vital Signs 05/24/20 05/24/20 00:01 01:15 Pulse Rate 122 H 110 H Respiratory 18 12 Rate Blood Pressure 155/89 123/70 O2 Sat by Pulse 98 94 Oximetry - Reevaluation(s) Reevaluation #1: Patient having increased lethargy. Patient will be given Narcan. 05/24/20 00:20 Reevaluation #2: Patient still lethargic but answering some questions. Patient will have a CT scan done and reassess. 05/24/20 00:34 Reevaluation #3: Patient is lethargic but still answering questions. I discussed all results with patient. I discussed plan of care with patient. Patient agrees with plan of care and admission. Patient to be admitted to the hospitalist service. 05/24/20 01:30 - Consultations Consultation #1: Hospitalist consulted for admission. Hospitalist to admit patient. 05/24/20 01:30 ALINA score - Alina Score Age > 65: (0) No Aspirin use within the Past 7 Days: (0) No 3 or more CAD Risk Factors: (1) Yes 2 or more Angina events in past 24 hrs: (1) Yes Known CAD with more than 50% Stenosis: (0) No Elevated Cardiac Markers: (0) No ST Deviation Greater than 0.5mm: (0) No ALINA Score: 2 ED Medical Decision Making - Lab Data Result diagrams: 05/24/20 00:22 05/24/20 00:22 - EKG Data -: EKG Interpreted by In EKG shows normal: sinus rhythm, axis, intervals, QRS complexes, ST-T waves Rate: tachycardia - Radiology Data Radiology results: report reviewed CTA CHEST WITH IV CONTRAST INDICATION: Syncope. Tachycardia and chest pain P.E. vs. DISSECTION. TECHNIQUE: Axial CT images were obtained through the chest after injection of 100 cc IV contrast. 3 plane MIP reconstructions were produced. All CT scans at this location are performed using CT dose reduction for ALARA by means of automated exposure control. COMPARISON: None available. FINDINGS: PULMONARY ARTERIES: No pulmonary emboli. THORACIC AORTA: No acute abnormality. HEART: Mildly enlarged CORONARY ARTERIES: No significant calcification. PLEURA: No pleural effusion. No pneumothorax. LYMPH NODES: No significant adenopathy. LUNGS: No acute air space or interstitial disease. ADDITIONAL FINDINGS: Left subclavian pacemaker leads UPPER ABDOMEN: No acute findings. SKELETAL STRUCTURES: Non aggressive cartilaginous lesion right proximal humerus characteristic for enchondroma IMPRESSION: 1. No CT evidence for thoracic aortic dissection or pulmonary embolism. 2. Cardiomegaly without CHF CT HEAD WITHOUT CONTRAST INDICATION / CLINICAL INFORMATION: Syncope / Altered Mental Status. TECHNIQUE: All CT scans at this location are performed using CT dose reduction for ALARA by means of automated exposure control. COMPARISON: Head CT 11/13/2019 FINDINGS: HEMORRHAGE: None. EXTRA-AXIAL SPACES: Normal in size and morphology for the patient's age. VENTRICULAR SYSTEM: Normal in size and morphology for the patient's age. CEREBRAL PARENCHYMA: No significant abnormality. No acute territorial infarct. MIDLINE SHIFT OR HERNIATION: None. CEREBELLUM / BRAINSTEM: No significant abnormality. ORBITS: Normal as visualized. SOFT TISSUES of HEAD: No significant abnormality. CALVARIUM: No significant abnormality. PARANASAL SINUSES / MASTOID AIR CELLS: Incompletely visualized mucosal sinus disease involving left frontal, ethmoid and maxillary sinuses ADDITIONAL FINDINGS: None. IMPRESSION: 1. Left-sided mucosal sinus disease, new since November 2019 2. No large territorial infarction or intracranial bleed. - Medical Decision Making Patient is a 54-year-old male that presents emergency room with complaints of chest pain, leg pain and syncope. Patient had a head CT which was negative for acute finding. Patient had a CTA of the chest which was negative for PE and dissection. CTA showed no acute findings. Patient had an EKG which was negative for acute findings of her sinus tachycardia. Patient EKG interpreted by me. Patient was lethargic the entire time in the ER but was easily arousable and answer questions appropriately. Patient was given Narcan for lethargy and patient mental state did not change. Patient has an elevated heart score. Patient has cardiac risk factors. Patient admitted to the hospital service for further evaluation and treatment and rule out ACS. - Differential Diagnosis PE, syncope, cardiogenic, ACS, chest pain, Critical Care Time: Yes Critical care time in (mins) excluding proc time.: 35 Critical care attestation.: If time is entered above; I have spent that time in minutes in the direct care of this critically ill patient, excluding procedure time. Critical Care Time: 35 minutes ED Disposition Clinical Impression: Lethargic Chest pain Qualifiers: Chest pain type: unspecified Qualified Code(s): R07.9 - Chest pain, unspecified Syncope Qualifiers: Syncope type: unspecified Qualified Code(s): R55 - Syncope and collapse Altered mental state Qualifiers: Altered mental status type: unspecified Qualified Code(s): R41.82 - Altered mental status, unspecified Disposition: DC-09 OP ADMIT IP TO THIS HOSP Is pt being admited?: Yes Does the pt Need Aspirin: No Condition: Critical Instructions: Chest Pain (ED), Syncope (ED) Time of Disposition: 01:34
[2020-05-24] MEDS ORDERED: NALOXONE 2 MG/2 ML INJ ONE (00:22)
[2020-05-24] MEDS ORDERED: ROCURONIUM 50 MG/5 ML INJ IV ONE ×2 (00:26→00:28)
[2020-05-24] MEDS ORDERED: ETOMIDATE 20 MG/10 ML INJ IV ONE ×2 (00:26→00:28)
[2020-05-24] MEDS ORDERED: NALOXONE 0.4 MG/1 ML INJ IV ONE (00:26)
[2020-05-24 00:38] LABS: Basophils % (Auto) 0.4 % (0.0-1.8); Eosinophils % (Auto) 0.1 % (0.0-4.3); Hematocrit 34.6 % (35.5-45.6); Hemoglobin 11.5 gm/dl (11.8-15.2); Lymphocytes # (Auto) 0.9 K/mm3 (1.2-5.4); Mean Corpuscular HGB Conc 33 % (32-34); Mean Corpuscular Volume 90 fl (84-94); Monocytes # (Auto) 0.9 K/mm3 (0.0-0.8); Monocytes % (Auto) 11.6 % (0.0-7.3); Platelet Count 486 K/mm3 (140-440); Red Blood Count 3.85 M/mm3 (3.65-5.03); Red Cell Distribution Width 14.3 % (13.2-15.2)
[2020-05-24 00:48] LABS: INR 1.05 (0.87-1.13)
[2020-05-24 00:49] LABS: Partial Thromboplastin Time 26.1 Sec. (24.2-36.6)
[2020-05-24 00:54] LABS: Alanine Aminotransferase 10 units/L (7-56); Albumin 4.1 g/dL (3.9-5); BUN/Creatinine Ratio 12; Blood Urea Nitrogen 12 mg/dL (9-20); Calcium 9.3 mg/dL (8.4-10.2); Hemolysis Index 6
--- NOTE | 2020-05-24 01:23 | Cat Scan Report ---
CT HEAD WITHOUT CONTRAST INDICATION / CLINICAL INFORMATION: Syncope / Altered Mental Status. TECHNIQUE: All CT scans at this location are performed using CT dose reduction for ALARA by means of automated e xposure control. COMPARISON: Head CT 11/13/2019 FINDINGS: HEMORRHAGE: None. EXTRA-AXIAL SPACES: Normal in size and morphology for the patient's age. VENTRICULAR SYSTEM: Normal in size and morphology for the patient's age. CEREBRAL PARENCHYMA: No significant abnormality. No acute territorial infarct. MIDLINE SHIFT OR HERNIATION: None. CEREBELLUM / BRAINSTEM: No significant abnormality. ORBITS: Normal as visualized. SOFT TISSUES of HEAD: No significant abnormality. CALVARIUM: No significant abnormality. PARANASAL SINUSES / MASTOID AIR CELLS: Incompletely visualized mucosal sinus disease involving left f rontal, ethmoid and maxillary sinuses ADDITIONAL FINDINGS: None. IMPRESSION: 1. Left-sided mucosal sinus disease, new since November 2019 2. No large territorial infarction or intracranial bleed. Signer Name: Hola Byrnes MD Signed: 05/24/2020 1:18 AM Workstation Name: [id number]
--- NOTE | 2020-05-24 01:27 | Cat Scan Report ---
CTA CHEST WITH IV CONTRAST INDICATION: Syncope. Tachycardia and chest pain P.E. vs. DISSECTION. TECHNIQUE: Axial CT images were obtained through the chest after injection of 100 cc IV contrast. 3 plane MIP re constructions were produced. All CT scans at this location are performed using CT dose reduction for ALARA by means of automated exposure control. COMPARISON: None available. FINDINGS: PULMONARY ARTERIES: No pulmonary emboli. THORACIC AORTA: No acute abnormality. HEART: Mildly enlarged CORONARY ARTERIES: No significant calcification. PLEURA: No pleural effusion. No pneumothorax. LYMPH NODES: No significant adenopathy. LUNGS: No acute air space or interstitial disease. ADDITIONAL FINDINGS: Left subclavian pacemaker leads UPPER ABDOMEN: No acute findings. SKELETAL STRUCTURES: Non aggressive cartilaginous lesion right proximal humerus characteristic for en chondroma IMPRESSION: 1. No CT evidence for thoracic aortic dissection or pulmonary embolism. 2. Cardiomegaly without CHF Signer Name: Hola Byrnes MD Signed: 05/24/2020 1:22 AM Workstation Name: [id number]
[2020-05-24] MEDS ORDERED: ACETAMINOPHEN 325 MG TAB PO PRN ×2 (01:37)
[2020-05-24] MEDS ORDERED: NITROGLYCERIN 0.4 MG TAB SUBL SL PRN (01:37)
[2020-05-24] MEDS ORDERED: DEXTROSE 50% IN WATER (25GM) 50 ML SYRINGE IV PRN (01:37)
[2020-05-24] MEDS ORDERED: ONDANSETRON 4 MG/2 ML INJ IV PRN (01:37)
[2020-05-24 01:44] LABS: Amphetamine Screen,Urine PRESUMPTIVE NEGATIVE; Benzodiazepines Screen,Urine PRESUMPTIVE NEGATIVE; Cannabinoid Screen,Urine PRESUMPTIVE POSITIVE; Cocaine Screen,Urine PRESUMPTIVE POSITIVE; Methadone Screen,Urine PRESUMPTIVE NEGATIVE; Opiate Screen,Urine PRESUMPTIVE NEGATIVE
[2020-05-24 01:45] LABS: Bilirubin,Urine NEG (Negative); Blood,Urine NEG (Negative); Color,Urine Yellow (Yellow); Mucus,Urine FEW /HPF; Urobilinogen,Urine < 2.0 mg/dL (<2.0)
--- NOTE | 2020-05-24 01:49 | History and Physical Report ---
History of Present Illness Date of examination: 05/24/20 Date of admission: 05/24/2020 Chief complaint: Chest Pain History of present illness: 44-year-old male with known history of hypertension, coronary artery disease with stent placement, history of pacemaker placement, diabetes mellitus and COPD presents to the emergency room today complaining of chest pain and syncopal episode. Symptoms were said to have started about 2 days ago and got worse today. He states that he passed out couple of times within the last 2 days. On a scale of 10 chest pain was about 10/10 prior to arrival in the emergency room. Chest pain is substernal, gets worse with exertion and improves upon resting. Review of patient's record indicates that he was here recently on May 15 having been admitted in cardiac arrest. He denies any fever or chills, no nausea vomiting, no abdominal pain, no diarrhea, no hematuria or dysuria. He denies any recent travel, no sick contacts, denies contact with anyone with COVID-19. Work-up in the emergency room today, CT of the head, CT angiogram of the chest were unremarkable. EKG shows sinus tachycardia and labs were unremarkable. Patient is being admitted for chest pain evaluation. Past History Past Medical History: CAD, COPD, diabetes, hypertension, renal failure, other (BPH,) Past Surgical History: appendectomy, hernia repair, PTCA, Other (Defibrillator placement,) Social history: smoking (Current daily smoker) Family history: no significant family history Medications and Allergies Allergies Allergy/AdvReac Type Severity Reaction Status Date / Time No Known Allergies Allergy Verified 01/24/18 08:29 Home Medications Medication Instructions Recorded Confirmed Last Taken Type No Known Home Medications [No 05/16/20 05/16/20 Unknown History Reported Home Medications] Active Meds: Active Medications Acetaminophen (Acetaminophen 325 Mg Tab) 650 mg PO Q4H PRN PRN Reason: Pain MILD(1-3)/Fever >100.5/CHAVIRA Acetaminophen (Acetaminophen 325 Mg Tab) 650 mg PO Q6H PRN PRN Reason: Pain, Mild (1-3) Aspirin (Aspirin Ec 325 Mg Tab) 325 mg PO QDAY ROSALINDA Dextrose (Dextrose 50% In Water (25gm) 50 Ml Syringe) 50 ml IV Q30MIN PRN; Protocol PRN Reason: Hypoglycemia Dextrose (Dextrose 50% In Water (25gm) 50 Ml Syringe) 50 ml IV Q30MIN PRN; Protocol PRN Reason: Hypoglycemia Insulin Human Regular (Insulin Regular, Human 100 Units/1 Ml) 0 units SUB-Q ACHS ROSALINDA; Protocol Morphine Sulfate (Morphine 4 Mg/1 Ml Inj) 2 mg IV Q5MIN PRN PRN Reason: Chest Pain Nitroglycerin (Nitroglycerin 0.4 Mg Tab Subl) 0.4 mg SL Q5M PRN PRN Reason: Chest Pain Ondansetron HCl (Ondansetron 4 Mg/2 Ml Inj) 4 mg IV Q8H PRN PRN Reason: Nausea And Vomiting Sodium Chloride (Sodium Chloride 0.9% 10 Ml Flush Syringe) 10 ml IV BID ROSALINDA Sodium Chloride (Sodium Chloride 0.9% 10 Ml Flush Syringe) 10 ml IV PRN PRN PRN Reason: LINE FLUSH Sodium Chloride (Sodium Chloride 0.9% 10 Ml Flush Syringe) 10 ml IV PRN PRN PRN Reason: LINE FLUSH Review of Systems Constitutional: no fever, no chills Ears, nose, mouth and throat: no nasal congestion, no sore throat Cardiovascular: chest pain, palpitations Respiratory: no cough, no shortness of breath Gastrointestinal: no abdominal pain, no nausea, no vomiting, no diarrhea Genitourinary Male: no dysuria, no hematuria, no flank pain Musculoskeletal: no neck pain, no low back pain Integumentary: no rash, no pruritis Neurological: no headaches, no confusion Psychiatric: no anxiety, no depression Exam - Constitutional Vitals: Temp Pulse Resp BP Pulse Ox 110 H 12 123/70 94 05/24/20 01:15 05/24/20 01:15 05/24/20 01:15 05/24/20 01:15 General appearance: Present: no acute distress, well-nourished - EENT Eyes: Present: PERRL, EOM intact. Absent: scleral icterus ENT: hearing intact, clear oral mucosa, dentition normal - Neck Neck: Present: supple, normal ROM - Respiratory Respiratory effort: normal Respiratory: bilateral: CTA - Cardiovascular Rhythm: regular Heart Sounds: Present: S1 & S2. Absent: gallop, systolic murmur, diastolic murm ur, rub Details: Pacemaker/Defibrillator in place. - Extremities Extremities: no ischemia, pulses intact, pulses symmetrical, No edema, normal temperature, normal color, Full ROM Peripheral Pulses: within normal limits - Abdominal General gastrointestinal: Present: soft, non-tender, non-distended, normal bowel sounds. Absent: mass - Integumentary Integumentary: Present: clear, warm, dry. Absent: rash - Musculoskeletal Musculoskeletal: strength equal bilaterally - Psychiatric Psychiatric: appropriate mood/affect, intact judgment & insight, memory intact, cooperative - Neurologic Neurologic: CNII-XII intact, no focal deficits, moves all extremities HEART Score - HEART Score History: Moderately suspicious EKG: Non-specific Age: 45-65 Risk factors: > 3 risk factors or hx of atherosclerotic disease Troponin: Troponin T < 0.010 ng/mL (0.00-0.029) 05/24/20 00:22 Troponin: < normal limit HEART Score: 5 Results - Labs CBC & Chem 7: 05/24/20 07:50 05/24/20 07:50 Labs: Abnormal lab results 05/24/20 05/24/20 Range/Units 00:22 00:22 Hgb 11.5 L (11.8-15.2) gm/dl Hct 34.6 L (35.5-45.6) % Plt Count 486 H (140-440) K/mm3 Lymph % (Auto) 11.0 L (13.4-35.0) % [place] % (Auto) 11.6 H (0.0-7.3) % Lymph # (Auto) 0.9 L (1.2-5.4) K/mm3 [place] # (Auto) 0.9 H (0.0-0.8) K/mm3 Seg Neutrophils % 76.9 H (40.0-70.0) % Potassium 3.4 L (3.6-5.0) mmol/L Chloride 91.7 L (98-107) mmol/L Carbon Dioxide 31 H (22-30) mmol/L Assessment and Plan - Patient Problems (1) Chest pain Current Visit: Yes Status: Acute Qualifiers: Chest pain type: unspecified Qualified Code(s): R07.9 - Chest pain, unspecified Plan to address problem: Patient admitted and placed on telemetry. We trend serial cardiac enzymes. Patient patient placed on aspirin, sublingual nitroglycerin and IV morphine as needed for chest pain. We will consult cardiology for evaluation and recommendation. (2) Syncope Current Visit: Yes Status: Acute Qualifiers: Syncope type: unspecified Qualified Code(s): R55 - Syncope and collapse Plan to address problem: Etiology unclear. We will schedule patient for carotid Doppler. Echocardiogram done on May 15, 2020 shows ejection fraction of 50 to 55%. (3) CAD (coronary artery disease) Current Visit: No Status: Acute Qualifiers: Coronary Disease-Associated Artery/Lesion type: lime artery [place] vs. transplanted heart: lime heart Associated angina: with unspecified angina Qualified Code(s): I25.119 - Atherosclerotic heart disease of lime coronary artery with unspecified angina pectoris Plan to address problem: Patient has had stents in the past. We await cardiology evaluation. (4) Diabetes mellitus type 2 in obese Current Visit: No Status: Acute Plan to address problem: We will monitor Accu-Cheks closely. (5) History of cocaine abuse Current Visit: No Status: Chronic Plan to address problem: Counseled on quitting. (6) UTI (urinary tract infection) Current Visit: No Status: Acute Plan to address problem: We will place on empiric IV antibiotics. We will await urine culture result. (7) DVT prophylaxis Current Visit: No Status: Acute Plan to address problem: Patient placed on subcutaneous Lovenox. (8) Full code status Current Visit: No Status: Acute Plan to address problem: Patient is full code.
[2020-05-24] MEDS ORDERED: ONDANSETRON 4 MG/2 ML INJ IV ONE (02:15)
[2020-05-24] MEDS ORDERED: MORPHINE 2 MG/1 ML INJ ONE (05:02)
[2020-05-24] MEDS: MORPHINE 4 MG/1 ML INJ IV PRN ×3 (05:11→19:58)
[2020-05-24] MEDS: DEXTROSE 50% IN WATER (25GM) 50 ML SYRINGE IV PRN ×2 (06:37→12:13)
[2020-05-24] MEDS: INSULIN REGULAR, HUMAN 100 UNITS/1 ML SUB-Q SCH ×4 (07:48→22:09)
[2020-05-24 08:25] LABS: Hematocrit 32.8 % (35.5-45.6); Hemoglobin 10.8 gm/dl (11.8-15.2); Mean Corpuscular HGB Conc 33 % (32-34); Mean Corpuscular Volume 89 fl (84-94); Platelet Count 487 K/mm3 (140-440); Red Cell Distribution Width 14.7 % (13.2-15.2)
[2020-05-24 09:10] LABS: BUN/Creatinine Ratio 10; Blood Urea Nitrogen 10 mg/dL (9-20); Calcium 9.1 mg/dL (8.4-10.2); Hemolysis Index 8
[2020-05-24 09:32] LABS: Basophils # (Auto) 0.1 K/mm3 (0.0-0.1); Basophils % (Auto) 0.9 % (0.0-1.8); Eosinophils % (Auto) 0.4 % (0.0-4.3); Lymphocytes # (Auto) 1.3 K/mm3 (1.2-5.4); Lymphocytes % (Auto) 22.7 % (13.4-35.0); Monocytes # (Auto) 0.9 K/mm3 (0.0-0.8)
[2020-05-24 11:41] LABS: Band Neutrophils # (Manual) 0.1 K/mm3; Total Cells Counted 100
[2020-05-24 11:42] LABS: Platelet Clumps Few; Platelet Estimate Consistent w Auto; RBC Morphology Normal
--- NOTE | 2020-05-24 11:43 | Consultation ---
History of Present Illness Consult date: 05/24/20 Requesting physician: CHILO CASE Consult reason: chest pain History of present illness: The pt is a 54 YO male with a past medical history of cocaine abuse, presumably nonischemic cardiomyopathy with most recently normalized EF, PPM (implanted at [place] in 2017 for syncope and AV block, EF was 30-35% at that time, AICD was not placed secondary to his ongoing drug use), HTN, DM, peripheral neuropathy. He has been seen by our practice on prior hospitalizations, non compliant with OP follow up. Pt presented with c/o progressively worsening BLE weakness which is causing him to frequently fall. He denies any chest pain, palpitations, n/v, diaphoresis, dizziness or syncope. He admits to ongoing cocaine use. Of note, pt was discharged from [facility] on 05/17/2020 following eval/management of ? syncopal episode with reported cardiac arrest in the field - bystanders reported the patient's "AICD fired 4 times", although pt does not have AICD. PPM was interrogated on 05/16/2020 - device interrogation showed normal device function, no arrhythmias or cardiac arrest noted. tte done 05/15/2020 showed EF 50-55%, mild LVH, pacemaker wire in RV. PET MPI done 09/2016 was negative for significant ischemia. Past History Past Medical History: diabetes, hypertension Past Surgical History: appendectomy, hernia repair, PTCA, Other (Defibrillator placement,) Social history: smoking (Current daily smoker) Family history: no significant family history Medications and Allergies Allergies Allergy/AdvReac Type Severity Reaction Status Date / Time No Known Allergies Allergy Verified 01/24/18 08:29 Home Medications Medication Instructions Recorded Confirmed Last Taken Type No Known Home Medications [No 05/16/20 05/16/20 Unknown History Reported Home Medications] Active Meds: Active Medications Acetaminophen (Acetaminophen 325 Mg Tab) 650 mg PO Q4H PRN PRN Reason: Pain MILD(1-3)/Fever >100.5/CHAVIRA Aspirin (Aspirin Ec 325 Mg Tab) 325 mg PO QDAY ROSALINDA Dextrose (Dextrose 50% In Water (25gm) 50 Ml Syringe) 50 ml IV Q30MIN PRN; Protocol PRN Reason: Hypoglycemia Last Admin: 05/24/20 06:37 Dose: 50 ml Documented by: Enoxaparin Sodium (Enoxaparin 40 Mg/0.4 Ml Inj) 40 mg SUB-Q QDAY@2200 [facility]; Protocol Insulin Human Regular (Insulin Regular, Human 100 Units/1 Ml) 0 units SUB-Q AC HS [facility]; Protocol Last Admin: 05/24/20 07:48 Dose: Not Given Documented by: Morphine Sulfate (Morphine 4 Mg/1 Ml Inj) 2 mg IV Q5MIN PRN PRN Reason: Chest Pain Last Admin: 05/24/20 05:11 Dose: 2 mg Documented by: Nitroglycerin (Nitroglycerin 0.4 Mg Tab Subl) 0.4 mg SL Q5M PRN PRN Reason: Chest Pain Ondansetron HCl (Ondansetron 4 Mg/2 Ml Inj) 4 mg IV Q8H PRN PRN Reason: Nausea And Vomiting Last Admin: 05/24/20 05:10 Dose: 4 mg Documented by: Sodium Chloride (Sodium Chloride 0.9% 10 Ml Flush Syringe) 10 ml IV BID [facility] Last Admin: 05/24/20 09:44 Dose: 10 ml Documented by: Sodium Chloride (Sodium Chloride 0.9% 10 Ml Flush Syringe) 10 ml IV PRN PRN PRN Reason: LINE FLUSH Review of Systems Constitutional: weakness (BLE), no weight loss, no weight gain, no fever, no chills, no sweats Ears, nose, mouth and throat: no ear pain, no nose pain, no sinus pressure, no sinus pain Cardiovascular: no chest pain, no orthopnea, no palpitations, no edema, no syncope, no lightheadedness, no shortness of breath, no dyspnea on exertion Respiratory: no cough, no congestion, no wheezing Gastrointestinal: no abdominal pain, no nausea, no vomiting, no diarrhea, no constipation, no change in bowel habits Genitourinary Male: no dysuria, no hematuria, no flank pain, no discharge, no urinary frequency, no urinary hesitancy Musculoskeletal: other (BLE weakness), no neck stiffness, no neck pain, no shooting arm pain, no arm numbness/tingling, no low back pain Integumentary: no rash, no pruritis, no redness, no sores, no wounds Neurological: weakness (BLE), no head injury, no paralysis, no parathesias, no numbness, no tingling, no seizures, no syncope Psychiatric: no anxiety Endocrine: no cold intolerance, no heat intolerance Hematologic/Lymphatic: no easy bruising Allergic/Immunologic: no urticaria Physical Examination Vital Signs Pulse Resp BP Pulse Ox 122 H 18 155/89 98 05/24/20 00:01 05/24/20 00:01 05/24/20 00:01 05/24/20 00:01 General appearance: no acute distress HEENT: Positive: PERRL, Normocephaly, Mucus Membranes Moist ( ) Neck: Positive: neck supple, trachea midline Cardiac: Positive: Reg Rate and Rhythm, S1/S2 Lungs: Positive: clear to auscultation Neuro: Positive: Grossly Intact Abdomen: Negative: Tender Skin: Negative: Rash Musculoskeletal: No Pain Extremities: Absent: edema Results 05/24/20 07:50 05/24/20 07:50 Cardiac Enzymes 05/24/20 Range/Units 00:22 AST 16 (5-40) units/L Coagulation 05/24/20 Range/Units 00:22 PT 13.5 (12.2-14.9) Sec. INR 1.05 (0.87-1.13) APTT 26.1 (24.2-36.6) Sec. CBC 05/24/20 05/24/20 Range/Units 00:22 07:50 WBC 7.9 5.7 (4.5-11.0) K/mm3 RBC 3.85 3.70 (3.65-5.03) M/mm3 Hgb 11.5 L 10.8 L (11.8-15.2) gm/dl Hct 34.6 L 32.8 L (35.5-45.6) % Plt Count 486 H 487 H (140-440) K/mm3 Lymph # (Auto) 0.9 L 1.3 (1.2-5.4) K/mm3 Hunt # (Auto) 0.9 H 0.9 H (0.0-0.8) K/mm3 Eos # (Auto) 0.0 0.0 (0.0-0.4) K/mm3 Baso # (Auto) 0.0 0.1 (0.0-0.1) K/mm3 Comprehensive Metabolic Panel 05/24/20 05/24/20 Range/Units 00:22 07:50 Sodium 137 140 (137-145) mmol/L Potassium 3.4 L 3.9 (3.6-5.0) mmol/L Chloride 91.7 L 98.4 (98-107) mmol/L Carbon Dioxide 31 H 31 H (22-30) mmol/L BUN 12 10 (9-20) mg/dL Creatinine 1.0 1.0 (0.8-1.3) mg/dL Glucose 79 116 H (75-100) mg/dL Calcium 9.3 9.1 (8.4-10.2) mg/dL AST 16 (5-40) units/L ALT 10 (7-56) units/L Alkaline Phosphatase 87 (35-129) units/L Total Protein 8.0 (6.3-8.2) g/dL Albumin 4.1 (3.9-5) g/dL - Imaging and Cardiology Echo: report reviewed (05/15/2020 showed EF 50-55%, mild LVH, pacemaker wire in RV. ) EKG: report reviewed, image reviewed EKG interpretations - Telemetry EKG Rhythm: Sinus Rhythm - EKG Sinus rhythms and dysrhythmias: sinus rhythm Assessment and Plan Pt denies any current cardiac complaints. AMI r/o. VSS. tte done 05/15/2020 showed EF 50-55%, mild LVH, pacemaker wire in RV. Pt c/o BLE weakness and has h/o reported DM with peripheral neuropathy. Recommend further eval/management per primary team. No indication for additional cardiac w/u at this time. Resume home cardiac regimen. Cessation of polysubstance use strongly encouraged - pt reports he is willing to consider drug rehabilitation. Nothing further to add from cardiac perspective at this time. Will sign off. Recommend pt follow up in our office with Dr. Mick Cai within 2 weeks of discharge ([phone]). The patient has been seen in conjunction with Dr. Mick Cai who agrees with the assessment and plan of care. - Patient Problems (1) Bilateral leg weakness Current Visit: Yes Status: Acute (2) Cardiac pacemaker in situ Current Visit: Yes Status: Chronic (3) Cocaine use disorder, severe, dependence Current Visit: Yes Status: Acute (4) HTN (hypertension) Current Visit: Yes Status: Chronic (5) Diabetes Current Visit: Yes Status: Chronic (6) History of cardiomyopathy Current Visit: Yes Status: Chronic Plan to address problem: presumably non ischemic, currently normalized EF
--- NOTE | 2020-05-24 12:15 | Vascular Lab Report ---
BILATERAL CAROTID DOPPLER ULTRASOUND INDICATION : Syncope TECHNIQUE: Grayscale and color Doppler imaging performed through the neck. COMPARISON: None FINDINGS: Right: There is no significant atherosclerotic disease. Peak systolic velocity in the CCA is 109 cm /s with end-diastolic velocity of 21 cm/s. Peak systolic velocity in the proximal ICA is 97 cm/s with end-diastolic velocity of 22 cm/s. ICA to CCA ratio is less than 2. There is antegrade flow in the ECA and the vertebral artery. Left: There is no significant atherosclerotic disease. Peak systolic velocity in the CCA is 95 cm/s w ith end-diastolic velocity of 25 cm/s. Peak systolic velocity in the proximal ICA is 101 cm/s with en d-diastolic velocity of 22 cm/s. ICA to CCA ratio is less than 2. There is antegrade flow in the ECA and the vertebral artery. IMPRESSION: No hemodynamically significant stenosis by NASCET criteria. Doppler velocities indicate l ess than 50% luminal narrowing bilaterally. Signer Name: Krunal Calvillo Jr, MD Signed: 05/24/2020 12:10 PM Workstation Name: [id number]
--- NOTE | 2020-05-24 20:26 | Event Note ---
Date: 05/24/20 Patient seen and examined, cardiac director. What will people save me for later.
[2020-05-24] MEDS ORDERED: ENOXAPARIN 40 MG/0.4 ML INJ SUB-Q SCH (22:00)
[2020-05-25] MEDS: cefTRIAXone/NS 1 GM/50 ML 1 GM/50 ML BAG IV SCH ×2 (00:50→12:54)
[2020-05-25] MEDS: MORPHINE 4 MG/1 ML INJ IV PRN ×2 (00:51→09:00)
[2020-05-25 06:21] LABS: Hematocrit 33.5 % (35.5-45.6); Hemoglobin 11.1 gm/dl (11.8-15.2); Mean Corpuscular HGB Conc 33 % (32-34); Mean Corpuscular Volume 88 fl (84-94); Platelet Count 509 K/mm3 (140-440); Red Blood Count 3.79 M/mm3 (3.65-5.03)
[2020-05-25 06:35] LABS: INR 1.08 (0.87-1.13)
[2020-05-25 06:43] LABS: BUN/Creatinine Ratio 13; Blood Urea Nitrogen 13 mg/dL (9-20); Hemolysis Index 0
[2020-05-25 08:08] LABS: Total Cells Counted 100
[2020-05-25 08:09] LABS: Hypochromasia Few; Platelet Estimate Consistent w Auto
[2020-05-25] MEDS: GABAPENTIN 300 MG CAP PO SCH ×2 (08:59→13:02)
[2020-05-25] MEDS: INSULIN REGULAR, HUMAN 100 UNITS/1 ML SUB-Q SCH ×2 (08:59→13:00)
[2020-05-25] MEDS ORDERED: ASPIRIN EC 325 MG TAB PO SCH (10:00)
--- NOTE | 2020-05-25 10:49 | Discharge Summary ---
Providers - Providers Date of Admission: 05/24/20 01:35 Attending physician: KRISTIAN SRINIVASAN MD 05/24/20 Consult to Cardiac Rehabilitation [CONS] Routine Reason For Exam: Phase I 05/24/20 01:38 Consult to Cardiology [CONS] Routine Consulting Provider: TALON GONZALEZ Reason For Exam: CHEST PAIN. H/O CAD WITH STENT. 05/25/20 07:47 Occupational Therapy Evaluate and Treat [CONS] Routine Comment: Reason For Exam: debility Physical Therapy Evaluation and Treat [CONS] Routine Comment: Reason For Exam: debilty Primary care physician: QUALITY ENGINEERING MANAGER Hospitalization Reason for admission: Atypical chest pain Condition: Stable Hospital course: Patient is a 54-year-old male with past history of hypertension, diabetes, CHF, coronary artery disease, COPD, seizure to the emergency room for evaluation complaining of chest pain and syncopal episode. coronary artery disease with stent placement, history of pacemaker placement, di abetes mellitus and COPD presents to the emergency room today Symptoms were said to have started about 2 days ago and got worse today. He states that he passed out couple of times within the last 2 days. On a scale of 10 chest pain was about 10/10 prior to arrival in the emergency room. Chest pain is substernal, gets worse with exertion and improves upon resting. Review of patient's record indicates that he was here recently on May 15 having been admitted in cardiac arrest. He denies any fever or chills, no nausea vomiting, no abdominal pain, no diarrhea, no hematuria or dysuria. He denies any recent travel, no sick contacts, denies contact with anyone with COVID-19. Work-up in the emergency room today, CT of the head, CT angiogram of the chest were unremarkable. EKG shows sinus tachycardia and labs were unremarkable. Patient is being admitted for chest pain evaluation. Review of record shows patient has had multiple admissions and ED visit. He is vague about his symptoms but denies seizures. He has not been on his medications and also unable to recall what medicines he takes while he consistently uses cocaine. He reports bilateral lower extremity numbness and weakness. Head CT is negative. He does not have any ongoing symptoms at this time. I have extensive discussion with him about need to quit tobacco use, cocaine use, substance abuse and follow-up with his regular doctors. I will see if case management can arrange for home health visit and evaluation for him. I will restart his seizure medications. And he can be discharged today and advised against driving until seen by his primary care doctor or the community clinic and released from that restriction according to [place] law. Cardiology did see him and signed off. His confusion has since resolved. Atypical chest pain likely secondary to costochondritis Syncope with recurrent fall Acute metabolic encephalopathy likely secondary to cocaine abuse Cocaine use disorder CAD COPD without exacerbation Diabetes mellitus Seizure disorder Disposition: [id number]/[place]-06 HOME UNDER [facility] Time spent for discharge: 35 minutes Core Measure Documentation - Palliative Care Palliative Care/ Comfort Measures: Not Applicable - Core Measures Any of the following diagnoses?: none Exam - Physical Exam Narrative exam: Gneral appearance: Present: no acute distress, well-nourished - EENT Eyes: Present: PERRL, EOM intact. Absent: scleral icterus ENT: hearing intact, clear oral mucosa, dentition normal - Neck Neck: Present: supple, normal ROM - Respiratory Respiratory effort: normal Respiratory: bilateral: CTA - Cardiovascular Rhythm: regular Heart Sounds: Present: S1 & S2. Absent: gallop, systolic murmur, diastolic murmur, rub Details: Pacemaker/Defibrillator in place. - Extremities Extremities: no ischemia, pulses intact, pulses symmetrical, No edema, normal temperature, normal color, Full ROM Peripheral Pulses: within normal limits - Abdominal General gastrointestinal: Present: soft, non-tender, non-distended, normal bowel sounds. Absent: mass - Integumentary Integumentary: Present: clear, warm, dry. Absent: rash - Musculoskeletal Musculoskeletal: strength equal bilaterally - Psychiatric Psychiatric: appropriate mood/affect, intact judgment & insight, memory intact, cooperative - Neurologic Neurologic: CNII-XII intact, no focal deficits, moves all extremities - Constitutional Vitals: Temp Pulse Resp BP Pulse Ox 98.8 F 90 18 108/60 95 05/25/20 08:05 05/25/20 08:05 05/25/20 08:05 05/25/20 08:05 05/25/20 08:05 Plan Activity: no driving until cleared by PCP, fall precautions Diet: low fat Special Instructions: record daily weights, record daily BP diary Additional Instructions: Follow seizure precautions. Follow up with: PRIMARY CARE, [Primary Care Provider] - 7 Days Prescriptions: Cyclobenzaprine HCl [Flexeril 5 MG TAB] 5 mg PO QHS #30 tab levETIRAcetam [Keppra TAB] 500 mg PO BID #60 tablet Promethazine [Phenergan] 25 mg PO Q8HR PRN #14 tab PRN Reason: Nausea
[2020-05-25 12:53] VITALS: BP 136/87
== END 2020-05-25 16:51 | disposition home health service (06) ==
LOC: ED 23:51 → 4A 05-24 01:35
PROVIDERS: ADMIT Internal Medicine Geriatric Medicine; ATTEND Internal Medicine
DX: R07.89 Other chest pain (principal); I25.10 Atherosclerotic heart disease of native coronary artery without angina pectoris; E11.9 Type 2 diabetes mellitus without complications; G93.41 Metabolic encephalopathy; R55 Syncope and collapse; R41.82 Altered mental status, unspecified; R53.83 Other fatigue; I42.9 Cardiomyopathy, unspecified; E66.9 Obesity, unspecified; N39.0 Urinary tract infection, site not specified; F14.10 Cocaine abuse, uncomplicated; J44.9 Chronic obstructive pulmonary disease, unspecified; N19 Unspecified kidney failure; F17.210 Nicotine dependence, cigarettes, uncomplicated; Z90.49 Acquired absence of other specified parts of digestive tract; Z98.890 Other specified postprocedural states; Z79.82 Long term (current) use of aspirin; Z79.4 Long term (current) use of insulin; Z95.0 Presence of cardiac pacemaker; Z86.73 Personal history of transient ischemic attack (TIA), and cerebral infarction without residual deficits; Z79.899 Other long term (current) drug therapy; Z68.24 Body mass index [BMI] 24.0-24.9, adult
CPT/HCPCS: 36415; 70450; 71275; 80048; 80053; 80307; 81001; 82962; 83880; 84484; 85025; 85610; 85730; 87076; 87086; 87186; 93005; 93880; 96365; 96366; 96372; 96375; 96376; 97162; 97165; 99291; G0378; J0696; J1650; J2270; J2310; J2405; J7030; Q9967; 85007; J1815

== ENCOUNTER 2020-09-03 14:32 | Emergency (ER) | payer SELFPAY ==
[2020-09-03] MEDS ORDERED: ONDANSETRON 4 MG/2 ML INJ IV ONE (15:15)
[2020-09-03] MEDS ORDERED: ONDANSETRON 4 MG/2 ML INJ ONE (15:15)
--- NOTE | 2020-09-03 16:06 | Event Note ---
ED Screening Note Date of service: 09/03/20 Time: 16:04 ED Screening Note: 55-year-old male patient with history of multiple medical problems and substance abuse presents to emergency department complaints of chest pain, abdominal pain, nausea, and vomiting starting last night. No known sick contacts. Actively vomiting in triage. General: Awake, appropriately interactive, no acute distress. Neck: Supple. Full range of motion intact. Cardiovascular: Normal peripheral perfusion. Pulmonary: No respiratory distress. Patient is speaking normally without use of accessory muscles. Skin: No apparent rashes or lesions. Neurological: No facial asymmetry. Speech is clear. Follows commands. Patient is alert and oriented. Musculoskeletal: Moves all four extremities spontaneously with normal range of motion. Psych: Cooperative. Appropriate mood and affect. I have greeted and performed a focused rapid initial assessment of this patient. A comprehensive ED assessment and evaluation of the patient, analysis of all test results, and completion of the medical decision-making process will be conducted by additional ED providers. This initial assessment/diagnostic orders/clinical plan/treatment(s) is/are subject to change based on patients health status, clinical progression and re-assessment. Further treatment and workup at subsequent clinical provider's discretion. Patient/guardian urged not to elope from the ED as their condition may be serious if not clinically assessed and managed.
[2020-09-03 16:29] LABS: Basophils % (Auto) 0.4 % (0.0-1.8); Hematocrit 43.3 % (35.5-45.6); Hemoglobin 14.7 gm/dl (11.8-15.2); Lymphocytes # (Auto) 0.6 K/mm3 (1.2-5.4); Mean Corpuscular HGB Conc 34 % (32-34); Mean Corpuscular Volume 88 fl (84-94); Monocytes # (Auto) 0.4 K/mm3 (0.0-0.8); Monocytes % (Auto) 3.8 % (0.0-7.3); Platelet Count 313 K/mm3 (140-440); Red Blood Count 4.93 M/mm3 (3.65-5.03); Red Cell Distribution Width 13.3 % (13.2-15.2)
--- NOTE | 2020-09-03 16:43 | XRay Report ---
CHEST 1 VIEW 09/03/2020 3:34 PM INDICATION / CLINICAL INFORMATION: Chest pain. COMPARISON: 05/15/20. FINDINGS: SUPPORT DEVICES: The endotracheal and nasogastric tubes have been removed. The position of the dual c hamber left subclavian transvenous pacemaker has not changed. HEART / MEDIASTINUM: The heart size and pulmonary vasculature are normal. The aorta is normal in page mohit. LUNGS / PLEURA: No significant pulmonary or pleural abnormality. No pneumothorax. ADDITIONAL FINDINGS: No significant additional findings. IMPRESSION: No acute findings. Signer Name: Remy Jesus MD Signed: 09/03/2020 4:38 PM Workstation Name: [id number]
[2020-09-03 16:53] LABS: Alanine Aminotransferase 27 units/L (7-56); Albumin 4.8 g/dL (3.9-5); BUN/Creatinine Ratio 14; Blood Urea Nitrogen 14 mg/dL (9-20); Calcium 10.2 mg/dL (8.4-10.2); Hemolysis Index 3
[2020-09-03] MEDS ORDERED: LACTATED RINGERS 2,000 ML IV ONE (22:06)
[2020-09-03] MEDS ORDERED: INSULIN REGULAR, HUMAN 100 UNITS/1 ML IV ONE (22:06)
[2020-09-03] MEDS ORDERED: HALOPERIDOL LACTATE 5 MG/1 ML INJ IM ONE (22:06)
--- NOTE | 2020-09-03 22:08 | Emergency Department Report ---
ED General Adult HPI - General Chief complaint: Abdominal Pain Stated complaint: VOMITING/KENNETH/CHILLS/CHEST PAIN PUI?: No Time Seen by Provider: 09/03/20 21:47 Source: patient, RN notes reviewed, old records reviewed Mode of arrival: Wheelchair Limitations: Physical Limitation - History of Present Illness Initial comments: The patient was evaluated in the emergency department for symptoms described in the history of present illness. He/she was evaluated in the context of the global COVID-19 pandemic, which necessitated consideration that the patient might be at risk for infection with the virus that causes COVID-19. [facility] protocols and algorithms that pertain to the evaluation of patients at risk for COVID-19 are in a state of rapid change based on information released by regulatory bodies including the CDC and federal and state organizations. These policies and algorithms were followed during the patient's care in the emergency department. Please note that these policies, procedures and recommendations changed on a rapid basis. The patient is a 55-year-old gentleman. His past medical history includes cocaine abuse, presumed nonischemic cardiomyopathy, recently normalized ejection fraction, permanent pacemaker implanted at [facility] in 2016, for syncope, and heart block, EF 30 to 35% at that time, AICD not placed secondary to ongoing drug use, hypertension, diabetes, peripheral neuropathy, noncompliance. Also had PET MPI performed 09/2016, which was negative for ischemia. The patient also had a CT angiogram of his chest at this hospital, May 2020, which was negative for acute findings. He was also recently seen by cardiology this year, July 2020, who recommended no further cardiac work-up. He was also instructed to follow-up with Dr. Louie, in the cardiology office, within 2 weeks of discharge back in May. Today, he presents to the ER with a complaint of abdominal pain, simultaneous chest pain, and bloody emesis. He states the symptoms have been going on for the past 48 hours. He states the symptoms happen concurrently. He denies headache and neck pain. He is not homicidal. He is not suicidal. He denies urinary symptoms. The abdominal pain chest pain have been constant for the past 2 days. The chest pain does not radiate anywhere. He does not have exacerbating or relieving factors. The abdominal pain is "all over", and increases with palpation. -: days(s) Location: chest, abdomen Severity scale (0 -10): 10 Consistency: other Improves with: other Worsens with: other Associated Symptoms: other - Related Data Previous Rx's Medication Instructions Recorded Last Taken Type Promethazine [Phenergan] 25 mg PO Q8HR PRN #14 tab 05/25/20 Unknown Rx Stu Root [Stu] 250 mg PO QID PRN #30 capsule 09/04/20 Unknown Rx Metoclopramide [Reglan] 10 mg PO QID PRN #30 tablet 09/04/20 Unknown Rx Pantoprazole [Protonix TAB] 20 mg PO QDAY #30 tablet. 09/04/20 Unknown Rx levETIRAcetam [Keppra TAB] 500 mg PO BID #60 tablet 09/04/20 Unknown Rx Allergies Allergy/AdvReac Type Severity Reaction Status Date / Time No Known Allergies Allergy Verified 01/24/18 08:29 ED Review of Systems ROS: Stated complaint: VOMITING/KENNETH/CHILLS/CHEST PAIN Other details as noted in HPI Constitutional: malaise, weakness Eyes: denies: eye discharge ENT: denies: epistaxis Respiratory: denies: cough Cardiovascular: chest pain Gastrointestinal: abdominal pain, nausea, vomiting. denies: melena, hematochezia Genitourinary: denies: dysuria Musculoskeletal: myalgia Neurological: weakness Psychiatric: anxiety. denies: homicidal thoughts, suicidal thoughts ED Past Medical Hx - Past Medical History Previous Medical History?: Yes Hx Hypertension: Yes Hx CVA: Yes Hx Heart Attack/AMI: Yes (x 2 with stents) Hx Congestive Heart Failure: Yes Hx Diabetes: Yes Hx Renal Disease: Yes Hx Asthma: No Hx COPD: Yes Hx HIV: No Additional medical history: BPH, Pacemaker - Surgical History Hx Coronary Stent: Yes Hx Pacemaker: Yes Hx Internal Defibrillator: Yes Hx Appendectomy: Yes Additional Surgical History: HERNIA SURGERY, Pacemaker - Social History Smoking Status: Never Smoker Substance Use Type: Alcohol - Medications Home Medications: Home Medications Medication Instructions Recorded Confirmed Last Taken Type Promethazine [Phenergan] 25 mg PO Q8HR PRN #14 tab 05/25/20 Unknown Rx Stu Root [Stu] 250 mg PO QID PRN #30 capsule 09/04/20 Unknown Rx Metoclopramide [Reglan] 10 mg PO QID PRN #30 tablet 09/04/20 Unknown Rx Pantoprazole [Protonix TAB] 20 mg PO QDAY #30 tablet. 09/04/20 Unknown Rx levETIRAcetam [Keppra TAB] 500 mg PO BID #60 tablet 09/04/20 Unknown Rx ED Physical Exam - General Limitations: Physical Limitation General appearance: alert, anxious, in distress - Head Head exam: Present: atraumatic, normocephalic - Eye Eye exam: Present: normal appearance, EOMI. Absent: nystagmus - ENT ENT exam: Present: normal exam, normal orophraynx, mucous membranes moist, normal external ear exam - Neck Neck exam: Present: normal inspection, full ROM. Absent: tenderness, men ingismus - Respiratory Respiratory exam: Present: decreased breath sounds. Absent: respiratory distress, wheezes, rales, rhonchi, stridor - Cardiovascular Cardiovascular Exam: Present: regular rate, normal rhythm, normal heart sounds. Absent: bradycardia, tachycardia, irregular rhythm, systolic murmur, diastolic murmur, rubs, gallop - GI/Abdominal GI/Abdominal exam: Present: soft, tenderness. Absent: distended, guarding, rebound, rigid, pulsatile mass - Rectal Rectal exam: Present: normal inspection, heme (-) stool, other (Chaperoned by gabi devi). Absent: heme (+) stool, black stool, bloody stool, fecal impaction - Extremities Exam Extremities exam: Present: normal inspection, full ROM, tenderness (Bilateral lower extremity tender. No redness, pus or streaking), other (2+ pulses noted in the bilateral upper extremity and lower extremities. The pelvis is stable. There is no long bony tenderness. The muscular compartments are soft.) - Back Exam Back exam: Present: normal inspection. Absent: tenderness, CVA tenderness (R), CVA tenderness (L), paraspinal tenderness, vertebral tenderness - Neurological Exam Neurological exam: Present: alert, other (No facial droop. Tongue midline. Extraocular movements intact bilaterally. Facial sensation intact to light touch in V1, V2, V3 distribution bilaterally. 5 and a 5 strength in 4 extremities. Sensation intact to light touch in 4 extremities.). Absent: motor sensory deficit - Psychiatric Psychiatric exam: Present: anxious - Skin Skin exam: Present: warm, dry, intact, normal color. Absent: rash ED Course Vital Signs 09/03/20 09/03/20 09/03/20 14:38 22:08 22:10 Temperature 98 F Pulse Rate 80 97 H 92 H Respiratory 20 18 14 Rate Blood Pressure Blood Pressure 141/107 [Right] O2 Sat by Pulse 96 99 98 Oximetry 09/03/20 09/03/20 09/03/20 22:12 22:14 22:16 Temperature Pulse Rate 91 H 93 H 88 Respiratory 18 24 15 Rate Blood Pressure Blood Pressure [Right] O2 Sat by Pulse 98 98 94 Oximetry 09/03/20 09/03/20 09/03/20 22:18 22:20 22:22 Temperature Pulse Rate 89 92 H 90 Respiratory 15 15 16 Rate Blood Pressure Blood Pressure [Right] O2 Sat by Pulse 96 97 97 Oximetry 09/03/20 09/03/20 09/03/20 22:24 22:26 22:28 Temperature Pulse Rate 96 H 89 Respiratory 11 L 14 Rate Blood Pressure Blood Pressure [Right] O2 Sat by Pulse 97 96 98 Oximetry 09/03/20 09/03/20 09/03/20 22:30 22:32 22:34 Temperature Pulse Rate Respiratory Rate Blood Pressure Blood Pressure [Right] O2 Sat by Pulse 95 97 97 Oximetry 09/03/20 09/03/20 09/03/20 22:36 22:38 22:39 Temperature Pulse Rate 112 H 103 H Respiratory 13 14 Rate Blood Pressure 144/68 Blood Pressure [Right] O2 Sat by Pulse 96 96 96 Oximetry 09/03/20 22:40 Temperature Pulse Rate 105 H Respiratory 17 Rate Blood Pressure 144/68 Blood Pressure [Right] O2 Sat by Pulse 97 Oximetry - Reevaluation(s) Reevaluation #1: 09/03/20 22:30 Differential diagnosis, including but not limited to: Gastroparesis, obstruction, colitis, diverticulitis, perforated viscus, Stephanie-Galloway tear, GERD, gastritis, hiatal hernia, pneumonia, pulmonary embolism, coronary artery disease Assessment and plan: 55-year-old gentleman with a complaint of chest pain, abdominal pain, and red emesis, who is guaiac negative. He had a negative CT scan of his chest for pulmonary embolism about 3 months ago. He has diffusely tender abdomen. Suspect gastroparesis with probable Stephanie-Galloway tear. Hemoglobin, hematocrit stable. Troponin negative. A lactic acid was ordered prior to my personal evaluation of this patient, this is likely initially elevated likely secondary to dehydration, nausea vomiting, and is most likely a type B lactic acidosis. We will treat the patient's symptoms with haloperidol as an antiemetic, Protonix, IV fluids, and give him insulin. We will obtain CT scan of the chest, abdomen, pelvis. He was seen by cardiology a few months ago, and they recommended no further cardiac ischemic work-up. With a negative troponin in the context of 48 hours of symptoms, acute myocardial infarction is excluded. It is likely that the patient's main issue here is dietary and lifestyle noncompliance. He denies recreational drug use to myself today. 09/04/20 00:07 No active vomiting. Patient resting comfortably at this time. CT scan of the chest negative for acute findings. CT scan of the abdomen pelvis negative for acute findings. This is most likely abdominal wall pain from nausea and vomiting, likely coming from probable gastroparesis, and a likely component of Stephanie-Galloway tear. However, these do not require inpatient admission or hospitalization. Patient can follow-up with outpatient primary care, cardiology, and gastroenterology. ED Medical Decision Making - Lab Data Result diagrams: 09/03/20 16:13 09/03/20 16:13 Vital Signs 09/03/20 14:38 Temperature 98 F Pulse Rate 80 Respiratory 20 Rate Blood Pressure 141/107 [Right] O2 Sat by Pulse 96 Oximetry Lab Results 09/03/20 09/03/20 09/03/20 Range/Units 14:36 16:12 16:12 WBC (4.5-11.0) K/mm3 RBC (3.65-5.03) M/mm3 Hgb (11.8-15.2) gm/dl Hct (35.5-45.6) % MCV (84-94) fl MCH (28-32) pg MCHC (32-34) % RDW (13.2-15.2) % Plt Count (140-440) K/mm3 Lymph % (Auto) (13.4-35.0) % [place] % (Auto) (0.0-7.3) % Eos % (Auto) (0.0-4.3) % Baso % (Auto) (0.0-1.8) % Lymph # (Auto) (1.2-5.4) K/mm3 [place] # (Auto) (0.0-0.8) K/mm3 Eos # (Auto) (0.0-0.4) K/mm3 Baso # (Auto) (0.0-0.1) K/mm3 Seg Neutrophils % (40.0-70.0) % Seg Neutrophils # (1.8-7.7) K/mm3 Sodium (137-145) mmol/L Potassium (3.6-5.0) mmol/L Chloride (98-107) mmol/L Carbon Dioxide (22-30) mmol/L Anion Gap mmol/L BUN (9-20) mg/dL Creatinine (0.8-1.3) mg/dL Estimated GFR ml/min BUN/Creatinine Ratio % Glucose (75-100) mg/dL POC Glucose 295 H (70-105) mg/dL Lactic Acid (0.7-2.0) mmol/L Calcium (8.4-10.2) mg/dL Magnesium 2.20 (1.7-2.3) mg/dL Total Bilirubin (0.1-1.2) mg/dL AST (5-40) units/L ALT (7-56) units/L Alkaline Phosphatase (35-129) units/L Total Creatine Kinase 356 H (55-170) units/L Troponin T (0.00-0.029) ng/mL Total Protein (6.3-8.2) g/dL Albumin (3.9-5) g/dL Albumin/Globulin Ratio % Lipase (13-60) units/L Salicylates < 0.3 L (2.8-20.0) mg/dL Acetaminophen (10.0-30.0) ug/mL Plasma/Serum Alcohol (0-0.07) % 09/03/20 09/03/20 09/03/20 Range/Units 16:12 16:13 16:13 WBC 9.5 (4.5-11.0) K/mm3 RBC 4.93 (3.65-5.03) M/mm3 Hgb 14.7 (11.8-15.2) gm/dl Hct 43.3 (35.5-45.6) % MCV 88 (84-94) fl MCH 30 (28-32) pg MCHC 34 (32-34) % RDW 13.3 (13.2-15.2) % Plt Count 313 (140-440) K/mm3 Lymph % (Auto) 6.0 L (13.4-35.0) % [place] % (Auto) 3.8 (0.0-7.3) % Eos % (Auto) 0.0 (0.0-4.3) % Baso % (Auto) 0.4 (0.0-1.8) % Lymph # (Auto) 0.6 L (1.2-5.4) K/mm3 [place] # (Auto) 0.4 (0.0-0.8) K/mm3 Eos # (Auto) 0.0 (0.0-0.4) K/mm3 Baso # (Auto) 0.0 (0.0-0.1) K/mm3 Seg Neutrophils % 89.8 H (40.0-70.0) % Seg Neutrophils # 8.6 H (1.8-7.7) K/mm3 Sodium 139 (137-145) mmol/L Potassium 3.6 (3.6-5.0) mmol/L Chloride 95.8 L (98-107) mmol/L Carbon Dioxide 25 (22-30) mmol/L Anion Gap 22 mmol/L BUN 14 (9-20) mg/dL Creatinine 1.0 (0.8-1.3) mg/dL Estimated GFR > 60 ml/min BUN/Creatinine Ratio 14 % Glucose 317 H (75-100) mg/dL POC Glucose (70-105) mg/dL Lactic Acid (0.7-2.0) mmol/L Calcium 10.2 (8.4-10.2) mg/dL Magnesium 2.10 (1.7-2.3) mg/dL Total Bilirubin 0.90 (0.1-1.2) mg/dL AST 18 (5-40) units/L ALT 27 (7-56) units/L Alkaline Phosphatase 103 (35-129) units/L Total Creatine Kinase (55-170) units/L Troponin T < 0.010 (0.00-0.029) ng/mL Total Protein 8.1 (6.3-8.2) g/dL Albumin 4.8 (3.9-5) g/dL Albumin/Globulin Ratio 1.5 % Lipase 12 L (13-60) units/L Salicylates (2.8-20.0) mg/dL Acetaminophen 5.0 L (10.0-30.0) ug/mL Plasma/Serum Alcohol (0-0.07) % 09/03/20 09/03/20 09/03/20 Range/Units 16:13 16:13 21:41 WBC (4.5-11.0) K/mm3 RBC (3.65-5.03) M/mm3 Hgb (11.8-15.2) gm/dl Hct (35.5-45.6) % MCV (84-94) fl MCH (28-32) pg MCHC (32-34) % RDW (13.2-15.2) % Plt Count (140-440) K/mm3 Lymph % (Auto) (13.4-35.0) % [place] % (Auto) (0.0-7.3) % Eos % (Auto) (0.0-4.3) % Baso % (Auto) (0.0-1.8) % Lymph # (Auto) (1.2-5.4) K/mm3 [place] # (Auto) (0.0-0.8) K/mm3 Eos # (Auto) (0.0-0.4) K/mm3 Baso # (Auto) (0.0-0.1) K/mm3 Seg Neutrophils % (40.0-70.0) % Seg Neutrophils # (1.8-7.7) K/mm3 Sodium (137-145) mmol/L Potassium (3.6-5.0) mmol/L Chloride (98-107) mmol/L Carbon Dioxide (22-30) mmol/L Anion Gap mmol/L BUN (9-20) mg/dL Creatinine (0.8-1.3) mg/dL Estimated GFR ml/min BUN/Creatinine Ratio % Glucose (75-100) mg/dL POC Glucose (70-105) mg/dL Lactic Acid 3.00 H* 1.60 (0.7-2.0) mmol/L Calcium (8.4-10.2) mg/dL Magnesium (1.7-2.3) mg/dL Total Bilirubin (0.1-1.2) mg/dL AST (5-40) units/L ALT (7-56) units/L Alkaline Phosphatase (35-129) units/L Total Creatine Kinase (55-170) units/L Troponin T (0.00-0.029) ng/mL Total Protein (6.3-8.2) g/dL Albumin (3.9-5) g/dL Albumin/Globulin Ratio % Lipase (13-60) units/L Salicylates (2.8-20.0) mg/dL Acetaminophen (10.0-30.0) ug/mL Plasma/Serum Alcohol < 0.01 (0-0.07) % - EKG Data -: EKG Interpreted by Pa EKG shows normal: sinus rhythm Rate: normal - EKG Data 09/03/20 22:30 EKG interpreted at 22: 01 Sinus rhythm, 92 bpm. Normal axis, QTC prolonged, motion artifact, left ventricular hypertrophy. This EKG is not a STEMI. The EKG is unchanged from prior EKG from May 2020. - Radiology Data Radiology results: report reviewed, image reviewed [facility] [address] [place] [address] XRay Report Signed Patient: RACHELLE SANTOS MR#: [id number] : 1965 Acct:[id number] Age/Sex: 55 / M ADM Date: 09/03/20 Loc: ED Attending Dr: Ordering Physician: RONN BAH Date of Service: 09/03/20 Procedure(s): XR chest 1V ap Accession Number(s): [id number] cc: RONN BAH Fluoro Time In Minutes: CHEST 1 VIEW 09/03/2020 3:34 PM INDICATION / CLINICAL INFORMATION: Chest pain. COMPARISON: 05/15/20. FINDINGS: SUPPORT DEVICES: The endotracheal and nasogastric tubes have been removed. The position of the dual chamber left subclavian transvenous pacemaker has not changed. HEART / MEDIASTINUM: The heart size and pulmonary vasculature are normal. The aorta is normal in caliber. LUNGS / PLEURA: No significant pulmonary or pleural abnormality. No pneumothorax. ADDITIONAL FINDINGS: No significant additional findings. IMPRESSION: No acute findings. Signer Name: Remy Jesus MD Signed: 09/03/2020 4:38 PM Workstation Name: [id number] Transcribed By: RT Dictated By: Remy Jesus MD Electronically Authenticated By: Remy Jesus MD Signed Date/Time: 09/03/20 1638 DD/ [address] [address] Cat Scan Report Signed Patient: RACHELLE SANTOS MR#: [id number] : 1965 Acct:[id number] Age/Sex: 55 / M ADM Date: 09/03/20 Loc: ED Attending Dr: Ordering Physician: CHRISTINA HARRISON MD Date of Service: 09/03/20 Procedure(s): CT angio chest Accession Number(s): [id number] cc: CHRISTINA HARRISON MD CTA CHEST WITH IV CONTRAST INDICATION / CLINICAL INFORMATION: Pain nausea and vomiting TECHNIQUE: Axial CT images were obtained through the chest after injection of 100 cc Omnipaque 300 milligrams percent IV contrast. 3 plane MIP and/or 3D reconstructions were produced. All CT scans at this location are performed using CT dose reduction for ALARA by means of automated exposure control. COMPARISON: 05/24/2020. FINDINGS: Streak artifact limits diagnostic accuracy of the examination PULMONARY ARTERIES: No pulmonary emboli. THORACIC AORTA: No significant abnormality. HEART: No significant abnormality. CORONARY ARTERIES: No significant calcification. PLEURA: No pleural effusion. No pneumothorax. LYMPH NODES: No significant adenopathy. LUNGS: No acute air space or interstitial disease. ADDITIONAL FINDINGS: None. UPPER ABDOMEN: No acute findings. SKELETAL STRUCTURES: No significant osseous abnormality. IMPRESSION: 1. No CT evidence for pulmonary embolism. 2. No acute findings. Signer Name: James Gabriel MD Signed: 09/03/2020 11:37 PM Workstation Name: [id number] Transcribed By: WG Dictated By: James Gabriel MD Elect ronically Authenticated By: James Gabriel MD Signed Date/Time: 09/03/207 DD/ 233 TD/TT: [address] [address] Cat Scan Report Signed Patient: RACHELLE SANTOS MR#: [id number] : 1965 Acct:[id number] Age/Sex: 55 / M ADM Date: 09/03/20 Loc: ED Attending Dr: Ordering Physician: CHRISTINA HARRISON MD Date of Service: 09/03/20 Procedure(s): CT abdomen pelvis w con Accession Number(s): [id number] cc: CHRISTINA HARRISON MD CT ABDOMEN AND PELVIS WITH CONTRAST INDICATION / CLINICAL INFORMATION: Acute abdominal pain TECHNIQUE: Axial CT images were obtained through the abdomen and pelvis after 100 cc Omnipaque 350 milligrams percent IV contrast. All CT scans at this location are performed using CT dose reduction for ALARA by means of automated exposure control. COMPARISON: None available. FINDINGS: LOWER CHEST: No significant abnormality. LIVER: No significant abnormality. GALLBLADDER: No significant abnormality. BILE DUCTS: No significant abnormality. PANCREAS: No significant abnormality. SPLEEN: No significant abnormality. ADRENALS: No significant abnormality. RIGHT KIDNEY and URETER: No significant abnormality. LEFT KIDNEY and URETER: No significant abnormality. STOMACH and SMALL BOWEL: No significant abnormality. COLON: No significant abnormality. APPENDIX: Not ident ified PERITONEUM: No free fluid. No free air. No fluid collection. LYMPH NODES: No significant adenopathy. AORTA and ARTERIES: No significant abnormality. IVC and VEINS: No significant abnormality. URINARY BLADDER: No significant abnormality. REPRODUCTIVE ORGANS: No significant abnormality. ADDITIONAL FINDINGS: None. SKELETAL SYSTEM: No significant abnormality. IMPRESSION: 1. No significant abnormality. Signer Name: James Gabriel MD Signed: 09/03/2020 11:41 PM Workstation Name: [id number] Transcribed By: WG Dictated By: James Gabriel MD Electronically Authenticated By: James Gabriel MD Signed Date/Time: 09/03/20 2341 DD/ 2338 Critical care attestation.: If time is entered above; I have spent that time in minutes in the direct care of this critically ill patient, excluding procedure time. ED Disposition Clinical Impression: History of cocaine abuse, Chest pain, Peripheral neuropathy, Abdominal pain, Cardiac pacemaker in situ, Medical non-compliance, Hyperglycemia Disposition: DC-01 TO HOME OR SELFCARE Is pt being admited?: No Does the pt Need Aspirin: No Condition: Good Instructions: Nonspecific Chest Pain, Adult Additional Instructions: Discontinue consumption of Motrin, ibuprofen, Naprosyn, Aleve, tobacco, smoke products, and alcohol. Avoid consumption of cocaine and recreational drugs if patient is using/indulging. Do not take metformin medication for the next 2 days, if patient takes this medication. Patient likely experiencing nausea or vomiting and concurrent abdominal pain, likely secondary to underlying gastroparesis, which is likely coming from poorly controlled diabetes. Please make certain to remain compliant with an outpatient diabetic appropriate diet, and take your prescribed diabetic medications, if taking any. Please follow-up with your primary care doctor within the next 2 weeks. Please follow-up with a notched blade loader within the next 2 weeks. Please follow-up with a plaster model and mold maker within the next 2 weeks. Please have a primary care doctor contact medical records department, to obtain copies of laboratory studies, radiology studies, to follow-up on findings and laboratory studies. Please return to the emergency room right away with new pain, worsened pain, migration of pain, projectile vomiting, change in mental status, confusion, inability to tolerate liquid feeds, new, worsened or different symptoms not present on the initial emergency room evaluation. Dr. Demarco is a local plaster model and mold maker. Dr. Louie is a local notched blade loader. Dr. Cook is a local primary care doctor. Take the Reglan medication as needed for nausea, stu medication as needed for nausea, and Protonix as needed for upper abdominal pain. Referrals: JODI LOUIE MD [Staff Physician] - 3-5 Days KEITH COOK MD [Staff Physician] - 3-5 Days KALPANA DEMARCO MD [Staff Physician] - 3-5 Days Heart Score - HEART Score History: Slightly suspicious EKG: Non-specific Age: 45-65 Risk factors: 1-2 risk factors Troponin: < normal limit HEART Score: 3 - EKG Read Time Time EKG Completed: 22:01 EKG Read Time: 22:01 - Critical Actions Critical Actions: 0-3 pts:0.9-1.7%risk of adverse cardiac event.Candidate for discharge
--- NOTE | 2020-09-03 23:41 | Cat Scan Report ---
CTA CHEST WITH IV CONTRAST INDICATION / CLINICAL INFORMATION: Pain nausea and vomiting TECHNIQUE: Axial CT images were obtained through the chest after injection of 100 cc Omnipaque 300 milligrams pe rcent IV contrast. 3 plane MIP and/or 3D reconstructions were produced. All CT scans at this location are performed using CT dose reduction for ALARA by means of automated exposure control. COMPARISON: 05/24/2020. FINDINGS: Streak artifact limits diagnostic accuracy of the examination PULMONARY ARTERIES: No pulmonary emboli. THORACIC AORTA: No significant abnormality. HEART: No significant abnormality. CORONARY ARTERIES: No significant calcification. PLEURA: No pleural effusion. No pneumothorax. LYMPH NODES: No significant adenopathy. LUNGS: No acute air space or interstitial disease. ADDITIONAL FINDINGS: None. UPPER ABDOMEN: No acute findings. SKELETAL STRUCTURES: No significant osseous abnormality. IMPRESSION: 1. No CT evidence for pulmonary embolism. 2. No acute findings. Signer Name: James Gabriel MD Signed: 09/03/2020 11:37 PM Workstation Name: [id number]
--- NOTE | 2020-09-03 23:45 | Cat Scan Report ---
CT ABDOMEN AND PELVIS WITH CONTRAST INDICATION / CLINICAL INFORMATION: Acute abdominal pain TECHNIQUE: Axial CT images were obtained through the abdomen and pelvis after 100 cc Omnipaque 350 milligrams pe rcent IV contrast. All CT scans at this location are performed using CT dose reduction for ALARA by means of automated exposure control. COMPARISON: None available. FINDINGS: LOWER CHEST: No significant abnormality. LIVER: No significant abnormality. GALLBLADDER: No significant abnormality. BILE DUCTS: No significant abnormality. PANCREAS: No significant abnormality. SPLEEN: No significant abnormality. ADRENALS: No significant abnormality. RIGHT KIDNEY and URETER: No significant abnormality. LEFT KIDNEY and URETER: No significant abnormality. STOMACH and SMALL BOWEL: No significant abnormality. COLON: No significant abnormality. APPENDIX: Not identified PERITONEUM: No free fluid. No free air. No fluid collection. LYMPH NODES: No significant adenopathy. AORTA and ARTERIES: No significant abnormality. IVC and VEINS: No significant abnormality. URINARY BLADDER: No significant abnormality. REPRODUCTIVE ORGANS: No significant abnormality. ADDITIONAL FINDINGS: None. SKELETAL SYSTEM: No significant abnormality. IMPRESSION: 1. No significant abnormality. Signer Name: James Gabriel MD Signed: 09/03/2020 11:41 PM Workstation Name: [id number]
[2020-09-04 02:01] VITALS: BP 133/77
--- NOTE | 2020-09-05 10:12 | Electrocardiograph Report ---
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
== END 2020-09-04 02:01 | disposition home or self-care (01) ==
LOC: ED 14:32
DX: R07.89 Other chest pain (principal); E11.65 Type 2 diabetes mellitus with hyperglycemia; E11.42 Type 2 diabetes mellitus with diabetic polyneuropathy; F14.10 Cocaine abuse, uncomplicated; I13.0 Hypertensive heart and chronic kidney disease with heart failure and stage 1 through stage 4 chronic kidney disease, or unspecified chronic kidney disease; E11.22 Type 2 diabetes mellitus with diabetic chronic kidney disease; N18.9 Chronic kidney disease, unspecified; I50.9 Heart failure, unspecified; Z95.0 Presence of cardiac pacemaker; J44.9 Chronic obstructive pulmonary disease, unspecified; Z90.49 Acquired absence of other specified parts of digestive tract; Z86.73 Personal history of transient ischemic attack (TIA), and cerebral infarction without residual deficits; Z72.89 Other problems related to lifestyle; Z79.899 Other long term (current) drug therapy
CPT/HCPCS: 36415; 71045; 71275; 74177; 80053; 82140; 82550; 82962; 83690; 83735; 84484; 85025; 93005; 96361; 96372; 96374; 96375; 99284; J1630; J2405; J7120; Q9967; 80320; G0480; J1815

== ENCOUNTER 2020-10-30 09:45 | Emergency (ER) | payer OTHER ==
[2020-10-30] MEDS ORDERED: SODIUM CHLORIDE 0.9% 1000 ML 1,000 ML IV ONE ×2 (10:25)
--- NOTE | 2020-10-30 10:30 | Emergency Department Report ---
ED General Adult HPI - General Chief complaint: Dizziness Stated complaint: FALL Time Seen by Provider: 10/30/20 10:23 Source: EMS Mode of arrival: Stretcher Limitations: No Limitations - History of Present Illness Initial comments: The patient presents to the emergency department with a chief complaint of chest pain and leg pain that started yesterday. Per PD the patient was being arrested when he had a syncopal episode. Patient has a history insulin-dependent diabetes and states he has not eaten since yesterday. Prehospital glucose was 421. Patient states the chest pain is pressure-like located throughout his chest and denies shortness of breath. -: days(s) (1) Location: chest, lower extremity Radiation: non-radiation Severity scale (0 -10): 6 Quality: sharp Consistency: constant Improves with: none Worsens with: none Associated Symptoms: denies other symptoms Treatments Prior to Arrival: none - Related Data Previous Rx's Medication Instructions Recorded Last Taken Type Promethazine [Phenergan] 25 mg PO Q8HR PRN #14 tab 05/25/20 Unknown Rx Martha Root [Martha] 250 mg PO QID PRN #30 capsule 09/04/20 Unknown Rx Metoclopramide [Reglan] 10 mg PO QID PRN #30 tablet 09/04/20 Unknown Rx Pantoprazole [Protonix TAB] 20 mg PO QDAY #30 tablet. 09/04/20 Unknown Rx levETIRAcetam [Keppra TAB] 500 mg PO BID #60 tablet 09/04/20 Unknown Rx levoFLOXacin [Levaquin] 750 mg PO QDAY #5 tablet 10/30/20 Unknown Rx Allergies Allergy/AdvReac Type Severity Reaction Status Date / Time No Known Allergies Allergy Verified 01/24/18 08:29 ED Review of Systems ROS: Stated complaint: FALL Other details as noted in HPI Comment: All other systems reviewed and negative Constitutional: denies: chills, fever Eyes: denies: eye pain, eye discharge, vision change ENT: denies: ear pain, throat pain Respiratory: denies: cough, shortness of breath, wheezing Cardiovascular: chest pain. denies: palpitations Endocrine: no symptoms reported Gastrointestinal: denies: abdominal pain, nausea, diarrhea Genitourinary: denies: urgency, dysuria Musculoskeletal: denies: back pain, joint swelling, arthralgia Skin: denies: rash, lesions Neurological: denies: headache, weakness, paresthesias Psychiatric: denies: anxiety, depression Hematological/Lymphatic: denies: easy bleeding, easy bruising ED Past Medical Hx - Past Medical History Hx Hypertension: Yes Hx CVA: Yes Hx Heart Attack/AMI: Yes (x 2 with stents) Hx Congestive Heart Failure: Yes Hx Diabetes: Yes Hx Renal Disease: Yes Hx Asthma: No Hx COPD: Yes Hx HIV: No Additional medical history: BPH, Pacemaker - Surgical History Hx Coronary Stent: Yes Hx Pacemaker: Yes Hx Internal Defibrillator: Yes Hx Appendectomy: Yes Additional Surgical History: HERNIA SURGERY, Pacemaker - Social History Smoking Status: Unknown if ever smoked - Medications Home Medications: Home Medications Medication Instructions Recorded Confirmed Last Taken Type Promethazine [Phenergan] 25 mg PO Q8HR PRN #14 tab 05/25/20 Unknown Rx Martha Root [Martha] 250 mg PO QID PRN #30 capsule 09/04/20 Unknown Rx Metoclopramide [Reglan] 10 mg PO QID PRN #30 tablet 09/04/20 Unknown Rx Pantoprazole [Protonix TAB] 20 mg PO QDAY #30 tablet. 09/04/20 Unknown Rx levETIRAcetam [Keppra TAB] 500 mg PO BID #60 tablet 09/04/20 Unknown Rx levoFLOXacin [Levaquin] 750 mg PO QDAY #5 tablet 10/30/20 Unknown Rx ED Physical Exam - General Limitations: No Limitations General appearance: alert, in no apparent distress - Head Head exam: Present: atraumatic, normocephalic - Eye Eye exam: Present: normal appearance - ENT ENT exam: Present: mucous membranes dry - Neck Neck exam: Present: normal inspection - Respiratory Respiratory exam: Present: normal lung sounds bilaterally. Absent: respiratory distress - Cardiovascular Cardiovascular Exam: Present: normal rhythm, tachycardia. Absent: systolic murmur, diastolic murmur, rubs, gallop - GI/Abdominal GI/Abdominal exam: Present: soft, normal bowel sounds. Absent: distended, tenderness - Rectal Rectal exam: Present: deferred - Extremities Exam Extremities exam: Present: normal inspection - Back Exam Back exam: Present: normal inspection - Neurological Exam Neurological exam: Present: alert, oriented X3, CN II-XII intact. Absent: motor sensory deficit - Psychiatric Psychiatric exam: Present: normal affect, normal mood - Skin Skin exam: Present: warm, dry, intact, normal color. Absent: rash ED Course Vital Signs 10/30/20 10/30/20 10/30/20 09:48 10:31 12:01 Pulse Rate 92 H 99 H 100 H Respiratory 18 26 H 18 Rate Blood Pressure 164/100 149/92 159/90 O2 Sat by Pulse 97 89 97 Oximetry 10/30/20 10/30/20 10/30/20 12:30 13:01 13:31 Pulse Rate 109 H 110 H 106 H Respiratory 29 H 18 17 Rate Blood Pressure 161/84 164/87 169/90 O2 Sat by Pulse 99 94 98 Oximetry 10/30/20 14:02 Pulse Rate 106 H Respiratory Rate Blood Pressure O2 Sat by Pulse Oximetry ED Medical Decision Making - Lab Data Result diagrams: 10/30/20 11:01 10/30/20 11:01 Lab Results 10/30/20 10/30/20 10/30/20 Range/Units 10:27 11:01 11:01 WBC 9.6 (4.5-11.0) K/mm3 RBC 4.82 (3.65-5.03) M/mm3 Hgb 14.5 (11.8-15.2) gm/dl Hct 42.9 (35.5-45.6) % MCV 89 (84-94) fl MCH 30 (28-32) pg MCHC 34 (32-34) % RDW 14.4 (13.2-15.2) % Plt Count 346 (140-440) K/mm3 Lymph % (Auto) 6.9 L (13.4-35.0) % Elliott % (Auto) 4.2 (0.0-7.3) % Eos % (Auto) 0.0 (0.0-4.3) % Baso % (Auto) 0.6 (0.0-1.8) % Lymph # (Auto) 0.7 L (1.2-5.4) K/mm3 Elliott # (Auto) 0.4 (0.0-0.8) K/mm3 Eos # (Auto) 0.0 (0.0-0.4) K/mm3 Baso # (Auto) 0.1 (0.0-0.1) K/mm3 Seg Neutrophils % 88.3 H (40.0-70.0) % Seg Neutrophils # 8.5 H (1.8-7.7) K/mm3 PT 13.8 (12.2-14.9) Sec. INR 1.00 (0.87-1.13) APTT 24.2 (24.2-36.6) Sec. VBG pH (7.320-7.420) Sodium (137-145) mmol/L Potassium (3.6-5.0) mmol/L Chloride (98-107) mmol/L Carbon Dioxide (22-30) mmol/L Anion Gap mmol/L BUN (9-20) mg/dL Creatinine (0.8-1.3) mg/dL Estimated GFR ml/min BUN/Creatinine Ratio % Glucose (75-100) mg/dL POC Glucose 454 H (70-105) mg/dL Lactic Acid (0.7-2.0) mmol/L Calcium (8.4-10.2) mg/dL Total Bilirubin (0.1-1.2) mg/dL AST (5-40) units/L ALT (7-56) units/L Alkaline Phosphatase (35-129) units/L Troponin T (0.00-0.029) ng/mL NT-Pro-B Natriuret Pep (0-900) pg/mL Total Protein (6.3-8.2) g/dL Albumin (3.9-5) g/dL Albumin/Globulin Ratio % Urine Color (Yellow) Urine Turbidity (Clear) Urine pH (5.0-7.0) Ur Specific [place] (1.003-1.030) Urine Protein (Negative) mg/dL Urine Glucose (UA) (Negative) mg/dL Urine Ketones (Negative) mg/dL Urine Blood (Negative) Urine Nitrite (Negative) Urine Bilirubin (Negative) Urine Urobilinogen (<2.0) mg/dL Ur Leukocyte Esterase (Negative) Urine WBC (Auto) (0.0-6.0) /HPF Urine RBC (Auto) (0.0-6.0) /HPF U Epithel Cells (Auto) (0-13.0) /HPF Urine Bacteria (Auto) (Negative) /HPF Urine Mucus /HPF 10/30/20 10/30/20 10/30/20 Range/Units 11:01 11:01 11:01 WBC (4.5-11.0) K/mm3 RBC (3.65-5.03) M/mm3 Hgb (11.8-15.2) gm/dl Hct (35.5-45.6) % MCV (84-94) fl MCH (28-32) pg MCHC (32-34) % RDW (13.2-15.2) % Plt Count (140-440) K/mm3 Lymph % (Auto) (13.4-35.0) % Elliott % (Auto) (0.0-7.3) % Eos % (Auto) (0.0-4.3) % Baso % (Auto) (0.0-1.8) % Lymph # (Auto) (1.2-5.4) K/mm3 Elliott # (Auto) (0.0-0.8) K/mm3 Eos # (Auto) (0.0-0.4) K/mm3 Baso # (Auto) (0.0-0.1) K/mm3 Seg Neutrophils % (40.0-70.0) % Seg Neutrophils # (1.8-7.7) K/mm3 PT (12.2-14.9) Sec. INR (0.87-1.13) APTT (24.2-36.6) Sec. VBG pH (7.320-7.420) Sodium 143 (137-145) mmol/L Potassium 4.2 (3.6-5.0) mmol/L Chloride 92.4 L (98-107) mmol/L Carbon Dioxide 25 (22-30) mmol/L Anion Gap 30 mmol/L BUN 36 H (9-20) mg/dL Creatinine 1.7 H (0.8-1.3) mg/dL Estimated GFR 51 ml/min BUN/Creatinine Ratio 21 % Glucose 484 H (75-100) mg/dL POC Glucose (70-105) mg/dL Lactic Acid 2.20 H* (0.7-2.0) mmol/L Calcium 9.8 (8.4-10.2) mg/dL Total Bilirubin 0.70 (0.1-1.2) mg/dL AST 11 (5-40) units/L ALT 17 (7-56) units/L Alkaline Phosphatase 102 (35-129) units/L Troponin T < 0.010 (0.00-0.029) ng/mL NT-Pro-B Natriuret Pep 110.8 (0-900) pg/mL Total Protein 8.5 H (6.3-8.2) g/dL Albumin 5.0 (3.9-5) g/dL Albumin/Globulin Ratio 1.4 % Urine Color (Yellow) Urine Turbidity (Clear) Urine pH (5.0-7.0) Ur Specific [place] (1.003-1.030) Urine Protein (Negative) mg/dL Urine Glucose (UA) (Negative) mg/dL Urine Ketones (Negative) mg/dL Urine Blood (Negative) Urine Nitrite (Negative) Urine Bilirubin (Negative) Urine Urobilinogen (<2.0) mg/dL Ur Leukocyte Esterase (Negative) Urine WBC (Auto) (0.0-6.0) /HPF Urine RBC (Auto) (0.0-6.0) /HPF U Epithel Cells (Auto) (0-13.0) /HPF Urine Bacteria (Auto) (Negative) /HPF Urine Mucus /HPF 10/30/20 10/30/20 10/30/20 Range/Units 11:01 13:56 Unknown WBC (4.5-11.0) K/mm3 RBC (3.65-5.03) M/mm3 Hgb (11.8-15.2) gm/dl Hct (35.5-45.6) % MCV (84-94) fl MCH (28-32) pg MCHC (32-34) % RDW (13.2-15.2) % Plt Count (140-440) K/mm3 Lymph % (Auto) (13.4-35.0) % Elliott % (Auto) (0.0-7.3) % Eos % (Auto) (0.0-4.3) % Baso % (Auto) (0.0-1.8) % Lymph # (Auto) (1.2-5.4) K/mm3 Elliott # (Auto) (0.0-0.8) K/mm3 Eos # (Auto) (0.0-0.4) K/mm3 Baso # (Auto) (0.0-0.1) K/mm3 Seg Neutrophils % (40.0-70.0) % Seg Neutrophils # (1.8-7.7) K/mm3 PT (12.2-14.9) Sec. INR (0.87-1.13) APTT (24.2-36.6) Sec. VBG pH 7.482 H (7.320-7.420) Sodium (137-145) mmol/L Potassium (3.6-5.0) mmol/L Chloride (98-107) mmol/L Carbon Dioxide (22-30) mmol/L Anion Gap mmol/L BUN (9-20) mg/dL Creatinine (0.8-1.3) mg/dL Estimated GFR ml/min BUN/Creatinine Ratio % Glucose (75-100) mg/dL POC Glucose (70-105) mg/dL Lactic Acid (0.7-2.0) mmol/L Calcium (8.4-10.2) mg/dL Total Bilirubin (0.1-1.2) mg/dL AST (5-40) units/L ALT (7-56) units/L Alkaline Phosphatase (35-129) units/L Troponin T < 0.010 (0.00-0.029) ng/mL NT-Pro-B Natriuret Pep (0-900) pg/mL Total Protein (6.3-8.2) g/dL Albumin (3.9-5) g/dL Albumin/Globulin Ratio % Urine Color Yellow (Yellow) Urine Turbidity Slightly-cloudy (Clear) Urine pH 5.0 (5.0-7.0) Ur Specific [place] 1.028 (1.003-1.030) Urine Protein 100 mg/dl (Negative) mg/dL Urine Glucose (UA) >=500 (Negative) mg/dL Urine Ketones 20 (Negative) mg/dL Urine Blood Sm (Negative) Urine Nitrite Neg (Negative) Urine Bilirubin Neg (Negative) Urine Urobilinogen < 2.0 (<2.0) mg/dL Ur Leukocyte Esterase Tr (Negative) Urine WBC (Auto) 28.0 H (0.0-6.0) /HPF Urine RBC (Auto) 4.0 (0.0-6.0) /HPF U Epithel Cells (Auto) < 1.0 (0-13.0) /HPF Urine Bacteria (Auto) 1+ (Negative) /HPF Urine Mucus Few /HPF - EKG Data -: EKG Interpreted by Sd EKG shows normal: sinus rhythm Rate: tachycardia - Radiology Data Radiology results: report reviewed - Medical Decision Making Discussed results with patient Patient received 2 L of IV fluid Patient received IV antibiotics On initial evaluation the patient's heart rate was 120 bpm after receiving 2 L of normal saline patient's heart rate was 101 when I was in the room at 3:30 PM. Patient still complains of pain and was given pain medication. Slightly tachycardic value is likely secondary to pain Critical Care Time: Yes Critical care time in (mins) excluding proc time.: 35 Critical care attestation.: If time is entered above; I have spent that time in minutes in the direct care of this critically ill patient, excluding procedure time. ED Disposition Clinical Impression: Hyperglycemia, UTI (urinary tract infection), Nonspecific chest pain, Abdominal pain Disposition: TO HOME OR SELFCARE Is pt being admited?: No Does the pt Need Aspirin: No Condition: Stable Instructions: Nonspecific Chest Pain, Adult, Urinary Tract Infection, Adult, Abdominal Pain, Adult Additional Instructions: return if worse Prescriptions: levoFLOXacin [Levaquin] 750 mg PO QDAY #5 tablet Referrals: PRIMARY CARE, [Primary Care Provider] - 3-5 Days KEITH GARZA MD [Staff Physician] - 3-5 Days Time of Disposition: 15:37 Heart Score - HEART Score History: Slightly suspicious EKG: Normal Age: 45-65 Risk factors: 1-2 risk factors Troponin: < normal limit HEART Score: 2 - EKG Read Time Time EKG Completed: 00:00 EKG Read Time: 00:00 - Critical Actions Critical Actions: 0-3 pts:0.9-1.7%risk of adverse cardiac event.Candidate for discharge
--- NOTE | 2020-10-30 11:12 | Cat Scan Report ---
CT head/brain wo con INDICATION: syncope. TECHNIQUE: Routine CT head. All CT scans at this location are performed using CT dose reduction for A MODE by means of automated exposure control. COMPARISON: May 24, 2020 FINDINGS: Intracranial: Perez-white matter differentiation is maintained. No intracranial hemorrhage. No extra a xial collection. No hydrocephalus. No herniation. Sinuses: Complete opacification of visualized left maxillary sinus, similar to prior study. Otherwise the paranasal sinuses and mastoid air cells are well-aerated.. Orbits: Globes are intact. Calvarium: No acute fracture. IMPRESSION: 1. No acute intracranial abnormality. Signer Name: Leroy Holt MD Signed: 10/30/2020 11:08 AM Workstation Name: [id number]
--- NOTE | 2020-10-30 11:24 | XRay Report ---
CHEST 1 VIEW 1105 INDICATION / CLINICAL INFORMATION: tachycardia COMPARISON: 09/03/2020 FINDINGS: SUPPORT DEVICES: Pacer is again noted HEART / MEDIASTINUM: No significant abnormality LUNGS / PLEURA: No significant pulmonary or pleural abnormality. No pneumothorax. ADDITIONAL FINDINGS: No significant additional findings. Signer Name: Sreekanth Aguirre MD Signed: 10/30/2020 11:19 AM Workstation Name: [email or web address]
[2020-10-30] MEDS ORDERED: CEFEPIME/NS 2 GM/100 ML 2 GM/100 ML BAG IV ONE (11:44)
[2020-10-30 11:45] LABS: Basophils # (Auto) 0.1 K/mm3 (0.0-0.1); Basophils % (Auto) 0.6 % (0.0-1.8); Hematocrit 42.9 % (35.5-45.6); Hemoglobin 14.5 gm/dl (11.8-15.2); Lymphocytes # (Auto) 0.7 K/mm3 (1.2-5.4); Lymphocytes % (Auto) 6.9 % (13.4-35.0); Mean Corpuscular HGB Conc 34 % (32-34); Mean Corpuscular Volume 89 fl (84-94); Monocytes # (Auto) 0.4 K/mm3 (0.0-0.8); Monocytes % (Auto) 4.2 % (0.0-7.3); Platelet Count 346 K/mm3 (140-440); Red Blood Count 4.82 M/mm3 (3.65-5.03); Red Cell Distribution Width 14.4 % (13.2-15.2)
[2020-10-30 11:58] LABS: Calcium 9.8 mg/dL (8.4-10.2)
[2020-10-30 12:03] LABS: Partial Thromboplastin Time 24.2 Sec. (24.2-36.6)
[2020-10-30] MEDS ORDERED: diphenhydrAMINE 50 MG/ML VIAL ONE (12:31)
[2020-10-30] MEDS ORDERED: ONDANSETRON 4 MG/2 ML INJ ONE (12:31)
[2020-10-30 13:00] LABS: Bacteria,Urine 1+ /HPF (Negative); Bilirubin,Urine NEG (Negative); Blood,Urine SM (Negative); Color,Urine Yellow (Yellow); Mucus,Urine FEW /HPF; Urobilinogen,Urine < 2.0 mg/dL (<2.0)
[2020-10-30] MEDS ORDERED: diphenhydrAMINE 50 MG/ML VIAL IV ONE (13:06)
[2020-10-30] MEDS ORDERED: ONDANSETRON 4 MG/2 ML INJ IV ONE (13:06)
--- NOTE | 2020-10-30 15:20 | Cat Scan Report ---
CT ABDOMEN AND PELVIS WITH CONTRAST INDICATION / CLINICAL INFORMATION: Abdominal pain. TECHNIQUE: Axial CT images were obtained through the abdomen and pelvis after Omnipaque 300, 100 cc I V contrast. All CT scans at this location are performed using CT dose reduction for ALARA by means o f automated exposure control. COMPARISON: 09/03/2020 FINDINGS: LOWER CHEST: No significant abnormality. LIVER: No significant abnormality. GALLBLADDER: No significant abnormality. BILE DUCTS: No significant abnormality. PANCREAS: No significant abnormality. SPLEEN: No significant abnormality. ADRENALS: No significant abnormality. RIGHT KIDNEY / URETER: No significant abnormality. LEFT KIDNEY / URETER: No significant abnormality. STOMACH / SMALL BOWEL: No significant abnormality. COLON: Collapse and not well evaluated, but demonstrates no adjacent inflammation. APPENDIX: Nonvisualized. PERITONEUM: No free fluid. No free air. No fluid collection. LYMPH NODES: No significant adenopathy. VASCULAR STRUCTURES: No significant abnormality. URINARY BLADDER: No significant abnormality. REPRODUCTIVE ORGANS: No significant abnormality. ADDITIONAL FINDINGS: None. SKELETAL SYSTEM: No significant abnormality. IMPRESSION: 1. Negative for obstruction or localized inflammation. 2. The colon is collapsed and not well evaluated, but demonstrates no adjacent inflammation. Signer Name: Piter Moy MD Signed: 10/30/2020 3:16 PM Workstation Name: [email or web address]
[2020-10-30] MEDS ORDERED: HYDROcodone/ACETAMINOPHEN 5-325 MG TAB PO ONE (15:31)
[2020-10-30] MEDS ORDERED: ONDANSETRON 4 MG ODT TAB PO ONE (15:31)
[2020-10-30 16:19] VITALS: BP 150/78
--- NOTE | 2020-10-31 10:22 | Electrocardiograph Report ---
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 Electronically Signed On 10-31-2020 10:21:46 EDT by Carmine Sidhu
== END 2020-10-30 16:28 | disposition home or self-care (01) ==
LOC: EEVIPCON 09:45 → ED 09:45
DX: E11.65 Type 2 diabetes mellitus with hyperglycemia (principal); N39.0 Urinary tract infection, site not specified; R07.89 Other chest pain; R10.9 Unspecified abdominal pain; I11.0 Hypertensive heart disease with heart failure; I50.9 Heart failure, unspecified; I25.2 Old myocardial infarction; J44.9 Chronic obstructive pulmonary disease, unspecified; Z90.49 Acquired absence of other specified parts of digestive tract; Z86.73 Personal history of transient ischemic attack (TIA), and cerebral infarction without residual deficits; Z98.890 Other specified postprocedural states; Z79.899 Other long term (current) drug therapy; W18.30XA Fall on same level, unspecified, initial encounter; Y93.89 Activity, other specified; Y92.89 Other specified places as the place of occurrence of the external cause; Y99.8 Other external cause status
CPT/HCPCS: 36415; 70450; 71045; 74177; 80053; 81001; 82140; 82805; 82962; 83880; 84484; 85025; 85610; 85730; 87040; 87086; 93005; 96361; 96365; 96375; 99285; J0692; J1200; J2405; J7030; Q9967; Q0162

== ENCOUNTER 2021-09-05 17:22 | Emergency (ER) | payer SELFPAY ==
[2021-09-06] MEDS ORDERED: PANTOPRAZOLE 40 MG INJ IV ONE (01:08)
--- NOTE | 2021-09-06 01:12 | Emergency Department Report ---
HPI - HPI HPI: Room 4 The patient is a 56-year-old male present with a chief complaint of hematemesis and melena. Patient states for the past 4 days he is had hematemesis of dark red blood. Patient also admits to melena for the past 4 days. Patient complains of abdominal pain in the epigastric region for the past 4 days stating it worsens anytime he tries to eat or drink anything. Patient mitts to dyspnea on exertion and shortness of breath in addition to feeling weak and dizzy for the past 3 days. Patient has a history of coronary artery disease and states he takes a baby aspirin daily <NERIS SEBASTIAN - Last Filed: 09/06/21 04:54> <CHRISTINA HARRISON - Last Filed: 09/06/21 11:46> - General Chief Complaint: Abdominal Pain Time Seen by Provider: 09/06/21 01:00 ED Past Medical Hx - Past Medical History Previous Medical History?: Yes Hx Hypertension: Yes Hx CVA: Yes Hx Heart Attack/AMI: Yes (x 2 with stents) Hx Congestive Heart Failure: Yes Hx Diabetes: Yes Hx Renal Disease: Yes Hx COPD: Yes Additional medical history: BPH, Pacemaker - Surgical History Past Surgical History?: Yes Hx Coronary Stent: Yes Hx Pacemaker: Yes Hx Internal Defibrillator: Yes Hx Appendectomy: Yes Additional Surgical History: HERNIA SURGERY, Pacemaker - Family History Family history: no significant - Social History Smoking Status: Former Smoker (None x1 month) Substance Use Type: None (Denies illicit drug use) <NERIS SEBASTIAN - Last Filed: 09/06/21 04:54> <CHRISTINA HARRISON - Last Filed: 09/06/21 11:46> - Medications Home Medications: Home Medications Medication Instructions Recorded Confirmed Last Taken Type Promethazine [Phenergan] 25 mg PO Q8HR PRN #14 tab 05/25/20 Unknown Rx Martha Root [Martha] 250 mg PO QID PRN #30 capsule 09/04/20 Unknown Rx Metoclopramide [Reglan] 10 mg PO QID PRN #30 tablet 09/04/20 Unknown Rx Pantoprazole [Protonix TAB] 20 mg PO QDAY #30 tablet. 09/04/20 Unknown Rx levETIRAcetam [Keppra TAB] 500 mg PO BID #60 tablet 09/04/20 Unknown Rx levoFLOXacin [Levaquin] 750 mg PO QDAY #5 tablet 10/30/20 Unknown Rx HYDROcodone/APAP 5-325 [[place] 1 each PO Q6HR PRN #10 tablet 09/06/21 Unknown Rx 5/325] Pantoprazole [Protonix] 40 mg PO QDAY #30 tablet 09/06/21 Unknown Rx Promethazine [Phenergan] 25 mg PO Q6HR PRN #20 tab 09/06/21 Unknown Rx Promethazine [Phenergan] 25 mg [place] Q6HR PRN #5 supp.rect 09/06/21 Unknown Rx ED Review of Systems ROS: Stated complaint: DIZZY/SEEING SPOTS Other details as noted in HPI Constitutional: weakness Eyes: denies: eye pain ENT: denies: throat pain Respiratory: SOB with exertion Cardiovascular: denies: chest pain Endocrine: no symptoms reported Gastrointestinal: abdominal pain, nausea, vomiting, hematemesis, melena Genitourinary: denies: dysuria Musculoskeletal: denies: back pain Neurological: denies: headache <NERIS SEBASTIAN - Last Filed: 09/06/21 04:54> ROS: Stated complaint: DIZZY/SEEING SPOTS Other details as noted in HPI <CHRISTINA HARRISON - Last Filed: 09/06/21 11:46> Physical Exam - Physical Exam Vital Signs: Vital Signs 09/05/21 17:52 Temperature 98 F Pulse Rate 87 Respiratory 16 Rate Blood Pressure 123/61 [Left] O2 Sat by Pulse 100 Oximetry Physical Exam: GENERAL: The patient is well-developed well-nourished male lying on stretcher not appearing to be in acute distress. [] HEENT: Normocephalic. Atraumatic. Extraocular motions are intact. Patient has moist mucous membranes. NECK: Supple. Trachea midline CHEST/LUNGS: Clear to auscultation. There is no respiratory distress noted. HEART/CARDIOVASCULAR: Regular. There is no tachycardia. There is no gallop rub or murmur. ABDOMEN: Abdomen is soft, with diffuse tenderness to palpation. Patient has normal bowel sounds. There is no abdominal distention. SKIN: There is no rash. There is no edema. There is no diaphoresis. NEURO: The patient is awake, alert, and oriented. The patient is cooperative. The patient has no focal neurologic deficits. The patient has normal speech. GCS 15 MUSCULOSKELETAL: There is no evidence of acute injury. RECTAL: Brown stool, guaiac negative <NERIS SEBASTIAN - Last Filed: 09/06/21 04:54> - Physical Exam Vital Signs: Vital Signs 09/05/21 09/06/21 09/06/21 17:52 02:25 02:30 Temperature 98 F Pulse Rate 87 83 Pulse Rate [ Lying] Respiratory 16 15 Rate Blood Pressure 105/64 Blood Pressure 123/61 [Left] Blood Pressure [Lying] O2 Sat by Pulse 100 96 95 Oximetry 09/06/21 09/06/21 09/06/21 02:46 03:00 03:16 Temperature Pulse Rate 84 82 80 Pulse Rate [ Lying] Respiratory 14 14 13 Rate Blood Pressure 105/64 112/65 112/65 Blood Pressure [Left] Blood Pressure [Lying] O2 Sat by Pulse 98 89 96 Oximetry 09/06/21 09/06/21 09/06/21 03:30 03:46 04:00 Temperature Pulse Rate 80 82 87 Pulse Rate [ Lying] Respiratory 19 13 11 L Rate Blood Pressure 104/56 104/56 93/63 Blood Pressure [Left] Blood Pressure [Lying] O2 Sat by Pulse 96 96 97 Oximetry 09/06/21 09/06/21 09/06/21 04:16 04:30 04:46 Temperature Pulse Rate 80 80 82 Pulse Rate [ Lying] Respiratory 10 L 12 15 Rate Blood Pressure 93/63 93/63 111/69 Blood Pressure [Left] Blood Pressure [Lying] O2 Sat by Pulse 98 96 Oximetry 09/06/21 04:49 Temperature Pulse Rate Pulse Rate [ 82 Lying] Respiratory Rate Blood Pressure Blood Pressure [Left] Blood Pressure 111/69 [Lying] O2 Sat by Pulse Oximetry <CHRISTINA HARRISON - Last Filed: 09/06/21 11:46> ED Course Vital Signs 09/05/21 17:52 Temperature 98 F Pulse Rate 87 Respiratory 16 Rate Blood Pressure 123/61 [Left] O2 Sat by Pulse 100 Oximetry <NEIRS SEBASTIAN - Last Filed: 09/06/21 04:54> Vital Signs 09/05/21 09/06/21 09/06/21 17:52 02:25 02:30 Temperature 98 F Pulse Rate 87 83 Pulse Rate [ Lying] Respiratory 16 15 Rate Blood Pressure 105/64 Blood Pressure 123/61 [Left] Blood Pressure [Lying] O2 Sat by Pulse 100 96 95 Oximetry 09/06/21 09/06/21 09/06/21 02:46 03:00 03:16 Temperature Pulse Rate 84 82 80 Pulse Rate [ Lying] Respiratory 14 14 13 Rate Blood Pressure 105/64 112/65 112/65 Blood Pressure [Left] Blood Pressure [Lying] O2 Sat by Pulse 98 89 96 Oximetry 09/06/21 09/06/21 09/06/21 03:30 03:46 04:00 Temperature Pulse Rate 80 82 87 Pulse Rate [ Lying] Respiratory 19 13 11 L Rate Blood Pressure 104/56 104/56 93/63 Blood Pressure [Left] Blood Pressure [Lying] O2 Sat by Pulse 96 96 97 Oximetry 09/06/21 09/06/21 09/06/21 04:16 04:30 04:46 Temperature Pulse Rate 80 80 82 Pulse Rate [ Lying] Respiratory 10 L 12 15 Rate Blood Pressure 93/63 93/63 111/69 Blood Pressure [Left] Blood Pressure [Lying] O2 Sat by Pulse 98 96 Oximetry 09/06/21 04:49 Temperature Pulse Rate Pulse Rate [ 82 Lying] Respiratory Rate Blood Pressure Blood Pressure [Left] Blood Pressure 111/69 [Lying] O2 Sat by Pulse Oximetry - Reevaluation(s) Reevaluation #1: 09/06/21 07:56 Repeat Accu-Chek in the 90s. Patient resting comfortably in stretcher. No active vomiting. I have evaluated this patient in the past for very similar complaints. I have previously recommended diet and lifestyle modifications. He may follow-up as an outpatient. <CHRISTINA HARRISON - Last Filed: 09/06/21 11:46> ED Medical Decision Making - Lab Data Result diagrams: 09/06/21 01:19 09/06/21 01:19 Laboratory Tests 09/06/21 09/06/21 09/06/21 01:19 01:19 01:19 WBC 3.6 L RBC 3.99 Hgb 10.9 L Hct 34.5 L MCV 87 MCH 27 L MCHC 32 RDW 13.5 Plt Count 224 Lymph % (Auto) 31.1 Martin % (Auto) 12.2 H Eos % (Auto) 1.9 Baso % (Auto) 0.7 Lymph # (Auto) 1.1 L Martin # (Auto) 0.4 Eos # (Auto) 0.1 Baso # (Auto) 0.0 Seg Neutrophils % 54.1 Seg Neutrophils # 2.0 PT 13.9 INR 0.97 APTT 23.5 L VBG pH Sodium 124 L Potassium 4.9 Chloride 83.3 L Carbon Dioxide 30 Anion Gap 16 BUN 19 Creatinine 1.7 H Estimated GFR 51 BUN/Creatinine Ratio 11 Glucose 720 H* Calcium 8.3 L Total Bilirubin 0.30 AST 22 ALT 18 Alkaline Phosphatase 86 Total Protein 6.2 L Albumin 3.8 L Albumin/Globulin Ratio 1.6 Lipase 28 Blood Type Antibody Screen 09/06/21 09/06/21 01:19 02:24 WBC RBC Hgb Hct MCV MCH MCHC RDW Plt Count Lymph % (Auto) Martin % (Auto) Eos % (Auto) Baso % (Auto) Lymph # (Auto) Martin # (Auto) Eos # (Auto) Baso # (Auto) Seg Neutrophils % Seg Neutrophils # PT INR APTT VBG pH 7.401 Sodium Potassium Chloride Carbon Dioxide Anion Gap BUN Creatinine Estimated GFR BUN/Creatinine Ratio Glucose Calcium Total Bilirubin AST ALT Alkaline Phosphatase Total Protein Albumin Albumin/Globulin Ratio Lipase Blood Type A POSITIVE Antibody Screen Negative - Radiology Data Radiology results: report reviewed (CT abdomen pelvis), image reviewed (CT abdomen pelvis) [place] [address] Cat Scan Report Signed Patient: RACHELLE SANTOS MR#: [id number] : 1965 Acct:[id number] Age/Sex: 56 / M ADM Date: 09/05/21 Loc: ED Attending Dr: Ordering Physician: NERIS SEBASTIAN MD Date of Service: 09/06/21 Procedure(s): CT abdomen pelvis wo con Accession Number(s): [id number] cc: NERIS SEBASTIAN MD CT ABDOMEN AND PELVIS WITHOUT CONTRAST INDICATION / CLINICAL INFORMATION: Pt complains of Epigastric abdominal pain. TECHNIQUE: Axial CT images were obtained through the abdomen and pelvis without IV contrast. All CT scans at this location are performed using CT dose reduction for ALARA by means of automated exposure control. COMPARISON: CT abdomen and pelvis 10/30/2020 FINDINGS: LOWER CHEST: No significant abnormality of the imaged chest. Pacemaker leads are present. LIVER: No focal lesion. No acute findings. GALLBLADDER / BILE DUCTS: Gallbladder is contracted. the biliary ducts are not well visualized. SPLEEN: No significant abnormality. PANCREAS: No significant abnormality. ADRENALS: No significant abnormality. KIDNEYS/URETERS: Mild bilateral hydronephrosis. No urolithiasis. STOMACH / DUODENUM / SMALL BOWEL: The stomach, duodenum, and small bowel demonstrate no significant abnormality. No specific abnormality of the mesentery demonstrated. COLON: No significant abnormality. APPENDIX: Not clearly identified. PERITONEUM: No free air or free fluid are present within the abdomen or pelvis. LYMPH NODES: No significant adenopathy. AORTA / ARTERIES: No significant abnormality. IVC / VEINS: No significant abnormality. URINARY BLADDER: Bladder is moderately distended. REPRODUCTIVE ORGANS: No significant abnormality. ADDITIONAL ABDOMINAL/PELVIC FINDINGS: None. SKELETAL SYSTEM: No significant abnormality. IMPRESSION: 1. No imaging findings are present to yost ggest etiology of the provided symptoms. 2. Moderate distention of the urinary bladder mild hydronephrosis may reflect sequelae of bladder distention. Signer Name: Kwaku Ham II, MD Signed: 09/06/2021 4:23 AM Workstation Name: [id number] Transcribed By: CLAUDIA Dictated By: KWAKU HAM II, MD Electronically Authenticated By: KWAKU HAM II, MD Signed Date/Time: 09/06/21422 DD/ 7 TD/TT: - Differential Diagnosis Upper GI bleed, pancreatitis, peptic ulcer disease <NERIS SEBASTIAN - Last Filed: 09/06/21 04:54> - Lab Data Result diagrams: 09/06/21 01:19 09/06/21 01:19 <CHRISTINA HARRISON - Last Filed: 09/06/21 11:46> Critical care attestation.: If time is entered above; I have spent that time in minutes in the direct care of this critically ill patient, excluding procedure time. <NERIS SEBASTIAN - Last Filed: 09/06/21 04:54> Critical care attestation.: If time is entered above; I have spent that time in minutes in the direct care of this critically ill patient, excluding procedure time. <CHRISTINA HARRISON - Last Filed: 09/06/21 11:46> ED Disposition Is pt being admited?: No Does the pt Need Aspirin: No Time of Disposition: 04:58 <NERIS SEBASTIAN - Last Filed: 09/06/21 04:54> Is pt being admited?: No Does the pt Need Aspirin: No <ROBERTCHRISTINA NARANJO - Last Filed: 09/06/21 11:46> Clinical Impression: Acute abdominal pain, Nausea & vomiting, Hyperglycemia Disposition: 01 HOME / SELF CARE / HOMELESS Condition: Stable Instructions: Abdominal Pain, Adult, [id number] Additional Instructions: Return to the emergency department should you develop worsening symptoms, inability to tolerate food or liquids, high fever or any other concerns Prescriptions: HYDROcodone/APAP 5-325 [[place] 5/325] 1 each PO Q6HR PRN #10 tablet PRN Reason: Pain Promethazine [Phenergan] 25 mg PO Q6HR PRN #20 tab PRN Reason: Nausea Promethazine [Phenergan] 25 mg [place] Q6HR PRN #5 supp.rect PRN Reason: Vomiting Pantoprazole [Protonix] 40 mg PO QDAY #30 tablet Referrals: PRIMARY CAREMD [Primary Care Provider] - 3-5 Days KALPANA DEMARCO MD [Staff Physician] - 3-5 Days (Dr. 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 Please follow-up with him for further evaluation)
[2021-09-06 01:36] LABS: Basophils % (Auto) 0.7 % (0.0-1.8); Eosinophils # (Auto) 0.1 K/mm3 (0.0-0.4); Eosinophils % (Auto) 1.9 % (0.0-4.3); Hematocrit 34.5 % (35.5-45.6); Hemoglobin 10.9 gm/dl (11.8-15.2); Lymphocytes # (Auto) 1.1 K/mm3 (1.2-5.4); Lymphocytes % (Auto) 31.1 % (13.4-35.0); Mean Corpuscular HGB Conc 32 % (32-34); Mean Corpuscular Volume 87 fl (84-94); Monocytes # (Auto) 0.4 K/mm3 (0.0-0.8); Monocytes % (Auto) 12.2 % (0.0-7.3); Platelet Count 224 K/mm3 (140-440); Red Blood Count 3.99 M/mm3 (3.65-5.03); Red Cell Distribution Width 13.5 % (13.2-15.2)
[2021-09-06 01:43] LABS: INR 0.97 (0.87-1.13)
[2021-09-06 01:44] LABS: Partial Thromboplastin Time 23.5 Sec. (24.2-36.6)
[2021-09-06 02:07] LABS: Albumin 3.8 g/dL (3.9-5); Calcium 8.3 mg/dL (8.4-10.2)
[2021-09-06] MEDS ORDERED: SODIUM CHLORIDE 0.9% 1000 ML 1,000 ML IV ONE ×2 (02:26)
--- NOTE | 2021-09-06 04:27 | Cat Scan Report ---
CT ABDOMEN AND PELVIS WITHOUT CONTRAST INDICATION / CLINICAL INFORMATION: Pt complains of Epigastric abdominal pain. TECHNIQUE: Axial CT images were obtained through the abdomen and pelvis without IV contrast. All CT scans at this location are performed using CT dose reduction for ALARA by means of automated exposure control. COMPARISON: CT abdomen and pelvis 10/30/2020 FINDINGS: LOWER CHEST: No significant abnormality of the imaged chest. Pacemaker leads are present. LIVER: No focal lesion. No acute findings. GALLBLADDER / BILE DUCTS: Gallbladder is contracted. the biliary ducts are not well visualized. SPLEEN: No significant abnormality. PANCREAS: No significant abnormality. ADRENALS: No significant abnormality. KIDNEYS/URETERS: Mild bilateral hydronephrosis. No urolithiasis. STOMACH / DUODENUM / SMALL BOWEL: The stomach, duodenum, and small bowel demonstrate no significant a bnormality. No specific abnormality of the mesentery demonstrated. COLON: No significant abnormality. APPENDIX: Not clearly identified. PERITONEUM: No free air or free fluid are present within the abdomen or pelvis. LYMPH NODES: No significant adenopathy. AORTA / ARTERIES: No significant abnormality. IVC / VEINS: No significant abnormality. URINARY BLADDER: Bladder is moderately distended. REPRODUCTIVE ORGANS: No significant abnormality. ADDITIONAL ABDOMINAL/PELVIC FINDINGS: None. SKELETAL SYSTEM: No significant abnormality. IMPRESSION: 1. No imaging findings are present to suggest etiology of the provided symptoms. 2. Moderate distention of the urinary bladder mild hydronephrosis may reflect sequelae of bladder dis tention. Signer Name: Feng Velasquez II, MD Signed: 09/06/2021 4:23 AM Workstation Name: [id number]
[2021-09-06 04:51] VITALS: BP 111/69
[2021-09-06] MEDS ORDERED: INSULIN REGULAR, HUMAN 100 UNITS/1 ML IV ONE ×2 (05:07→05:40)
== END 2021-09-06 08:11 | disposition home or self-care (01) ==
LOC: ED 17:22
DX: R10.9 Unspecified abdominal pain (principal); R11.2 Nausea with vomiting, unspecified; E11.65 Type 2 diabetes mellitus with hyperglycemia; I10 Essential (primary) hypertension
CPT/HCPCS: 36415; 74176; 80053; 82270; 82805; 83690; 85025; 85610; 85730; 86850; 86900; 86901; 96361; 96374; 96375; 96376; 99284; C9113; J7030; Q9967; J1815

== ENCOUNTER 2021-09-26 12:39 | Emergency (ER) | payer SELFPAY ==
[2021-09-26 13:03] VITALS: BP 101/63
[2021-09-26 14:03] LABS: Basophils % (Auto) 0.6 % (0.0-1.8); Eosinophils % (Auto) 0.1 % (0.0-4.3); Hematocrit 36.9 % (35.5-45.6); Lymphocytes # (Auto) 1.2 K/mm3 (1.2-5.4); Lymphocytes % (Auto) 18.5 % (13.4-35.0); Mean Corpuscular HGB Conc 33 % (32-34); Mean Corpuscular Volume 86 fl (84-94); Monocytes # (Auto) 0.5 K/mm3 (0.0-0.8); Monocytes % (Auto) 8.2 % (0.0-7.3); Platelet Count 318 K/mm3 (140-440); Red Blood Count 4.31 M/mm3 (3.65-5.03); Red Cell Distribution Width 14.4 % (13.2-15.2)
--- NOTE | 2021-09-26 14:16 | XRay Report ---
CHEST 2 VIEWS INDICATION / CLINICAL INFORMATION: Chest Pain. COMPARISON: 10/30/2020 FINDINGS: SUPPORT DEVICES: Cardiac pacemaker leads in good position. HEART / MEDIASTINUM: No significant abnormality. LUNGS / PLEURA: No significant pulmonary or pleural abnormality. No pneumothorax. ADDITIONAL FINDINGS: No significant additional findings. IMPRESSION: 1. No acute findings. Signer Name: Jean Paul Simon MD Signed: 09/26/2021 2:12 PM Workstation Name: [id number]
[2021-09-26 14:18] LABS: INR 0.96 (0.87-1.13); Partial Thromboplastin Time 23.5 Sec. (24.2-36.6)
[2021-09-26 14:25] LABS: Alanine Aminotransferase 14 units/L (7-56); Albumin 4.7 g/dL (3.9-5); BUN/Creatinine Ratio 16; Blood Urea Nitrogen 21 mg/dL (9-20); Calcium 10.1 mg/dL (8.4-10.2); Hemolysis Index 7
--- NOTE | 2021-09-27 13:49 | Electrocardiograph Report ---
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
== END 2021-09-26 15:30 | disposition left against medical advice (07) ==
LOC: ED 12:39
DX: R07.9 Chest pain, unspecified (principal); K92.1 Melena; Z53.21 Procedure and treatment not carried out due to patient leaving prior to being seen by health care provider
CPT/HCPCS: 36415; 71046; 80053; 84484; 85025; 85610; 85730; 93005

== ENCOUNTER 2021-09-30 12:24 | Emergency (ER) | payer SELFPAY ==
[2021-09-30] MEDS ORDERED: SODIUM CHLORIDE 0.9% 1000 ML 1,000 ML IV ONE (12:50)
--- NOTE | 2021-09-30 12:54 | Emergency Department Report ---
<YANIRA LLOYD - Last Filed: 09/30/21 14:57> ED General Adult HPI - General Stated complaint: UNRESPONSIVE Time Seen by Provider: 09/30/21 12:48 - History of Present Illness Initial comments: 56-year-old male with a history of heart failure s/p defibrillator brought in by EMS after being witnessed with a shock from his defibrillator this afternoon. EMS report that this was witnessed and patient reports some chest discomfort after the shock. Patient also told me that he has history of seizure and believe that he did have some seizure. This is unclear because patient still acting confused but responds to stimulus with stable vital signs with 100% on room air. History is very limited. No other modifying or associated factors reported at this point. - Related Data Previous Rx's Medication Instructions Recorded Last Taken Type Promethazine [Phenergan] 25 mg PO Q8HR PRN #14 tab 05/25/20 Unknown Rx Martha Root [Martha] 250 mg PO QID PRN #30 capsule 09/04/20 Unknown Rx Metoclopramide [Reglan] 10 mg PO QID PRN #30 tablet 09/04/20 Unknown Rx Pantoprazole [Protonix TAB] 20 mg PO QDAY #30 tablet.dr 09/04/20 Unknown Rx levETIRAcetam [Keppra TAB] 500 mg PO BID #60 tablet 09/04/20 Unknown Rx levoFLOXacin [Levaquin] 750 mg PO QDAY #5 tablet 10/30/20 Unknown Rx HYDROcodone/APAP 5-325 [[place] 1 each PO Q6HR PRN #10 tablet 09/06/21 Unknown Rx 5/325] Pantoprazole [Protonix] 40 mg PO QDAY #30 tablet 09/06/21 Unknown Rx Promethazine [Phenergan] 25 mg PO Q6HR PRN #20 tab 09/06/21 Unknown Rx Promethazine [Phenergan] 25 mg [place] Q6HR PRN #5 supp.rect 09/06/21 Unknown Rx Allergies Allergy/AdvReac Type Severity Reaction Status Date / Time No Known Allergies Allergy Verified 09/26/21 13:03 ED Review of Systems Comment: All other systems reviewed and negative (Unresponsiveness with possible seizure) ED Past Medical Hx - Past Medical History Hx Hypertension: Yes Hx CVA: Yes Hx Heart Attack/AMI: Yes (x 2 with stents) Hx Congestive Heart Failure: Yes Hx Diabetes: Yes Hx Renal Disease: Yes Hx Asthma: No Hx COPD: Yes Hx HIV: No Additional medical history: BPH, Pacemaker - Surgical History Hx Coronary Stent: Yes Hx Pacemaker: Yes Hx Internal Defibrillator: Yes Hx Appendectomy: Yes Additional Surgical History: HERNIA SURGERY, Pacemaker - Social History Smoking Status: Former Smoker (None x1 month) Substance Use Type: None (Denies illicit drug use) - Medications Home Medications: Home Medications Medication Instructions Recorded Confirmed Last Taken Type Promethazine [Phenergan] 25 mg PO Q8HR PRN #14 tab 05/25/20 Unknown Rx Martha Root [Martha] 250 mg PO QID PRN #30 capsule 09/04/20 Unknown Rx Metoclopramide [Reglan] 10 mg PO QID PRN #30 tablet 09/04/20 Unknown Rx Pantoprazole [Protonix TAB] 20 mg PO QDAY #30 tablet.dr 09/04/20 Unknown Rx levETIRAcetam [Keppra TAB] 500 mg PO BID #60 tablet 09/04/20 Unknown Rx levoFLOXacin [Levaquin] 750 mg PO QDAY #5 tablet 10/30/20 Unknown Rx HYDROcodone/APAP 5-325 [[place] 1 each PO Q6HR PRN #10 tablet 09/06/21 Unknown Rx 5/325] Pantoprazole [Protonix] 40 mg PO QDAY #30 tablet 09/06/21 Unknown Rx Promethazine [Phenergan] 25 mg PO Q6HR PRN #20 tab 09/06/21 Unknown Rx Promethazine [Phenergan] 25 mg [place] Q6HR PRN #5 supp.rect 09/06/21 Unknown Rx ED Physical Exam - General Limitations: Altered Mental Status, Other (Clinical presentation limitation) General appearance: alert, in no apparent distress - Head Head exam: Present: atraumatic, normal inspection - Eye Eye exam: Present: normal appearance Pupils: Present: normal accommodation - ENT ENT exam: Present: normal exam, normal orophraynx - Neck Neck exam: Present: normal inspection, full ROM. Absent: tenderness - Respiratory Respiratory exam: Present: normal lung sounds bilaterally. Absent: respiratory distress, accessory muscle use - Cardiovascular Cardiovascular Exam: Present: regular rate, normal rhythm - GI/Abdominal GI/Abdominal exam: Present: soft, normal bowel sounds. Absent: tenderness - Back Exam Back exam: Present: normal inspection. Absent: tenderness, CVA tenderness (R), CVA tenderness (L) - Neurological Exam Neurological exam: Present: alert, other (Groggy) - Psychiatric Psychiatric exam: Present: normal affect - Skin Skin exam: Present: warm, normal color ED Course - Reevaluation(s) Reevaluation #1: 09/30/21 14:[address] Alexander Sanches while waiting for labs -- Please consult the Entertainment Manager ED Medical Decision Making - Lab Data Result diagrams: 09/30/21 Unknown 09/30/21 12:49 - EKG Data EKG shows normal: sinus rhythm Rate: normal - EKG Data 09/30/21 13:31 Noted with normal sinus rhythm at the rate of 80 bpm, with normal QT and no ST elevation or depression in this normal ECG. - Medical Decision Making here after been shocked by his defibrillator-- will go ahead and check routine labs including CBC, CMP, UA and thyroid panel with cardiac enzyme with CXR for any correctable cause-- In the meantime will start mild ivf ns hydration while waiting for the above labs-- ED Disposition Clinical Impression: Altered mental state, Hyperglycemia due to diabetes mellitus, Left-sided chest wall pain Disposition: 01 HOME / SELF CARE / HOMELESS Is pt being admited?: No Does the pt Need Aspirin: No Condition: Stable Instructions: Diabetes Mellitus Type 2 in Adults (ED), Nonspecific Chest Pain, Adult, Type 2 Diabetes Mellitus, Self Care, Adult Referrals: PRIMARY CARE, [Primary Care Provider] - 3-5 Days <PARDEEP SANCHES - Last Filed: 09/30/21 22:47> ED Review of Systems ROS: Stated complaint: UNRESPONSIVE Other details as noted in HPI ED Course Vital Signs 09/30/21 09/30/21 09/30/21 12:45 13:00 13:16 Temperature 97.8 F Pulse Rate 88 82 80 Respiratory 16 9 L 14 Rate Blood Pressure 124/72 108/71 118/76 Blood Pressure [Left] O2 Sat by Pulse 99 95 97 Oximetry 09/30/21 09/30/21 09/30/21 13:30 13:46 14:00 Temperature Pulse Rate 81 80 79 Respiratory 11 L 10 L 10 L Rate Blood Pressure 117/80 117/80 128/83 Blood Pressure [Left] O2 Sat by Pulse 90 96 97 Oximetry 06/27/22 06/27/22 06/27/22 14:04 14:16 14:30 Temperature Pulse Rate 80 80 79 Respiratory 12 13 Rate Blood Pressure 128/83 123/78 Blood Pressure [Left] O2 Sat by Pulse 97 97 Oximetry 09/30/21 09/30/21 09/30/21 14:46 15:00 15:16 Temperature Pulse Rate 80 78 82 Respiratory 15 13 16 Rate Blood Pressure 128/83 112/75 112/75 Blood Pressure [Left] O2 Sat by Pulse 96 96 96 Oximetry 09/30/21 09/30/21 09/30/21 15:30 15:46 16:00 Temperature Pulse Rate 84 85 84 Respiratory 16 13 13 Rate Blood Pressure 111/68 111/68 88/58 Blood Pressure [Left] O2 Sat by Pulse 96 96 96 Oximetry 09/30/21 09/30/21 09/30/21 16:16 16:30 16:46 Temperature Pulse Rate 80 80 79 Respiratory 23 17 14 Rate Blood Pressure 88/58 121/67 121/67 Blood Pressure [Left] O2 Sat by Pulse 96 98 98 Oximetry 09/30/21 09/30/21 09/30/21 17:00 17:47 19:16 Temperature Pulse Rate 80 78 Respiratory 14 18 13 Rate Blood Pressure 124/78 106/64 Blood Pressure [Left] O2 Sat by Pulse 97 97 94 Oximetry 09/30/21 09/30/21 09/30/21 19:56 20:00 20:16 Temperature 97.9 F Pulse Rate 73 73 73 Respiratory 10 L 17 15 Rate Blood Pressure 115/72 115/72 119/73 Blood Pressure 115/72 [Left] O2 Sat by Pulse 97 98 95 Oximetry ED Medical Decision Making - Lab Data Result diagrams: 09/30/21 Unknown 09/30/21 12:49 - Medical Decision Making Patient signed out to me at shift change. CT head obtained for altered mental status and is unremarkable. CBC, troponin and CMP unremarkable except for serum glucose of 429 for which patient was given IV fluids and insulin with good response. [place] contacted medical safety director companies and found that patient has a [employer] pacemaker only and does not have a defibrillator. Patient was monitored in the emergency department for several hours. On my final reassessment just now patient is alert and oriented. He reports tenderness around his pacemaker implantation site. On examination of the area there is no cellulitis or warmth. The pacemaker was not recently placed. EKG is normal with a rate of 80. Vital signs are stable. Patient stable for discharge home with return precautions. Critical care attestation.: If time is entered above; I have spent that time in minutes in the direct care of this critically ill patient, excluding procedure time. ED Disposition Is pt being admited?: No Does the pt Need Aspirin: No Time of Disposition: 22:47
[2021-09-30 13:03] LABS: Eosinophils % (Auto) 0.7 % (0.0-4.3); Hematocrit 40.1 % (35.5-45.6); Hemoglobin 12.8 gm/dl (11.8-15.2); Lymphocytes # (Auto) 0.8 K/mm3 (1.2-5.4); Lymphocytes % (Auto) 23.3 % (13.4-35.0); Mean Corpuscular HGB Conc 32 % (32-34); Mean Corpuscular Volume 85 fl (84-94); Monocytes # (Auto) 0.3 K/mm3 (0.0-0.8); Monocytes % (Auto) 10.3 % (0.0-7.3); Platelet Count 300 K/mm3 (140-440); Red Cell Distribution Width 14.5 % (13.2-15.2)
[2021-09-30 13:13] LABS: INR 0.9 (0.87-1.13)
[2021-09-30 13:14] LABS: Partial Thromboplastin Time 24.8 Sec. (24.2-36.6)
[2021-09-30 13:44] LABS: Free T4 (Free Thyroxine) 1.19 ng/dL (0.76-1.46)
[2021-09-30 13:49] LABS: Alanine Aminotransferase 14 units/L (7-56); Albumin 4.2 g/dL (3.9-5); BUN/Creatinine Ratio 13; Blood Urea Nitrogen 15 mg/dL (9-20); Calcium 9.4 mg/dL (8.4-10.2); Hemolysis Index 13
[2021-09-30] MEDS ORDERED: INSULIN REGULAR, HUMAN 100 UNITS/1 ML IV ONE (15:39)
[2021-09-30] MEDS ORDERED: DEXTROSE 50% IN WATER (25GM) 50 ML SYRINGE IV ONE (18:57)
[2021-09-30] MEDS ORDERED: SODIUM CHLORIDE 0.9% 1000 ML 1,000 ML ONE (18:59)
--- NOTE | 2021-09-30 21:32 | Cat Scan Report ---
CT HEAD WITHOUT CONTRAST INDICATION / CLINICAL INFORMATION: ams. TECHNIQUE: All CT scans at this location are performed using CT dose reduction for ALARA by means of automated e xposure control. COMPARISON: Head CT 10/30/2020 LIMITATIONS: Patient motion artifact is limiting factor on this examination. FINDINGS: HEMORRHAGE: No evidence of intracranial hemorrhage or extra-axial fluid collection. EXTRA-AXIAL SPACES: Cortical sulci, sylvian fissures and basilar cisterns have an unremarkable appear ance. VENTRICULAR SYSTEM: The third and lateral ventricles are of normal size and configuration. CEREBRAL PARENCHYMA: No areas of abnormal brain parenchymal attenuation are identified. There is no i ndication of recent infarction. MIDLINE SHIFT OR HERNIATION: There is no mass effect. CEREBELLUM / BRAINSTEM: Brainstem and cerebellum have an unremarkable appearance. MIDLINE STRUCTURES:No abnormalities of the pituitary gland or pineal region are identified. INTRACRANIAL VESSELS:No abnormalities are identified on this noncontrast head CT. ORBITS: visualized portions of the orbits have an unremarkable appearance. SOFT TISSUES of HEAD: No significant abnormality. CALVARIUM: Evaluation of bone windows reveals no abnormalities. PARANASAL SINUSES / MASTOID AIR CELLS: Persistent subtotal opacification of the visualized portions o f the left maxillary sinus is noted compatible with chronic inflammatory disease in this location. Pa ranasal sinuses otherwise appear clear. ADDITIONAL FINDINGS: None. IMPRESSION: 1. No acute intracranial abnormality. No significant interval change comparison to 10/30/2020. 2. Persistent inflammatory changes in the left maxillary sinus. Signer Name: Jaret Landaverde MD Signed: 09/30/2021 9:27 PM Workstation Name: [id number]
[2021-09-30 23:57] VITALS: BP 115/72
--- NOTE | 2021-10-01 12:11 | Electrocardiograph Report ---
[facility] Test Date: 2021-09-30 Test Time: 13:14:44 Pat Name: RACHELLE SANTOS Department: Room: Gender: Home Economist: [phone] : [id number] Requested By: YANIRA LLOYD Order Number: [id number] Reading MD: Carmine Sidhu Measurements Intervals [place] Rate: 80 P: 57 WA: 122 QRS: 79 QRSD: 86 T: 67 QT: 410 QTc: 473 Interpretive Statements Sinus rhythm Compared to ECG 09/26/2021 12:57:52 No significant changes Electronically Signed On 10-01-2021 12:11:16 EDT by Carmine Sidhu
== END 2021-09-30 23:50 | disposition home or self-care (01) ==
LOC: ED 12:24
DX: R41.82 Altered mental status, unspecified (principal); E11.65 Type 2 diabetes mellitus with hyperglycemia; R07.89 Other chest pain; I13.0 Hypertensive heart and chronic kidney disease with heart failure and stage 1 through stage 4 chronic kidney disease, or unspecified chronic kidney disease; E11.22 Type 2 diabetes mellitus with diabetic chronic kidney disease; N18.9 Chronic kidney disease, unspecified; I50.9 Heart failure, unspecified; Z86.73 Personal history of transient ischemic attack (TIA), and cerebral infarction without residual deficits; J44.9 Chronic obstructive pulmonary disease, unspecified; Z90.89 Acquired absence of other organs; Z98.890 Other specified postprocedural states; Z87.891 Personal history of nicotine dependence
CPT/HCPCS: 36415; 70450; 80053; 82140; 82962; 83880; 84439; 84443; 84484; 85025; 85610; 85730; 93005; 96361; 96374; 99285; J3490; J7030; Q9967; J1815

== ENCOUNTER 2021-10-01 02:01 | Emergency (ER) | payer SELFPAY ==
[2021-10-01 05:35] LABS: Basophils % (Auto) 0.9 % (0.0-1.8); Eosinophils % (Auto) 0.6 % (0.0-4.3); Hematocrit 37.7 % (35.5-45.6); Hemoglobin 12.6 gm/dl (11.8-15.2); Lymphocytes # (Auto) 1.2 K/mm3 (1.2-5.4); Lymphocytes % (Auto) 25.9 % (13.4-35.0); Mean Corpuscular HGB Conc 33 % (32-34); Mean Corpuscular Volume 85 fl (84-94); Monocytes # (Auto) 0.5 K/mm3 (0.0-0.8); Monocytes % (Auto) 10.7 % (0.0-7.3); Platelet Count 322 K/mm3 (140-440); Red Blood Count 4.43 M/mm3 (3.65-5.03); Red Cell Distribution Width 14.8 % (13.2-15.2)
[2021-10-01 05:46] LABS: BUN/Creatinine Ratio 15; Blood Urea Nitrogen 17 mg/dL (9-20); Calcium 9.2 mg/dL (8.4-10.2); Hemolysis Index 7
--- NOTE | 2021-10-01 12:08 | Emergency Department Report ---
ED Psych HPI - General Chief Complaint: Psych Stated Complaint: SUICIDAL Time Seen by Provider: 10/01/21 11:40 Source: patient Mode of arrival: Ambulatory - History of Present Illness Initial Comments: 56-year-old male with a history of anxiety and depression currently taking Ser oquel who now presents with suicidal ideation that has been intermittent in the last 2 weeks. Patient reported that he has not been taking his medication for the last 1 to 2 weeks. When asked he said he does not know the reason. Patient reports suicidal ideation by slashing his wrist. He said he has done that in the past. No homicidal ideation reported. No other modifying or associated factors reported. Patient however was seen in the emergency room yesterday for pacemaker/ICD dysfunction and was clear and discharge in the afternoon. Shortly after discharge patient signed back in to the emergency room to be seen for suicidal ideation. - Related Data Previous Rx's Medication Instructions Recorded Last Taken Type Promethazine [Phenergan] 25 mg PO Q8HR PRN #14 tab 05/25/20 Unknown Rx Martha Root [Martha] 250 mg PO QID PRN #30 capsule 09/04/20 Unknown Rx Metoclopramide [Reglan] 10 mg PO QID PRN #30 tablet 09/04/20 Unknown Rx Pantoprazole [Protonix TAB] 20 mg PO QDAY #30 tablet.dr 09/04/20 Unknown Rx levETIRAcetam [Keppra TAB] 500 mg PO BID #60 tablet 09/04/20 Unknown Rx levoFLOXacin [Levaquin] 750 mg PO QDAY #5 tablet 10/30/20 Unknown Rx HYDROcodone/APAP 5-325 [Diagonal 1 each PO Q6HR PRN #10 tablet 09/06/21 Unknown Rx 5/325] Pantoprazole [Protonix] 40 mg PO QDAY #30 tablet 09/06/21 Unknown Rx Promethazine [Phenergan] 25 mg PO Q6HR PRN #20 tab 09/06/21 Unknown Rx Promethazine [Phenergan] 25 mg ME Q6HR PRN #5 supp.rect 09/06/21 Unknown Rx Allergies Allergy/AdvReac Type Severity Reaction Status Date / Time No Known Allergies Allergy Verified 09/26/21 13:03 ED Review of Systems ROS: Stated complaint: SUICIDAL Other details as noted in HPI Comment: All other systems reviewed and negative Psychiatric: suicidal thoughts. denies: homicidal thoughts ED Past Medical Hx - Past Medical History Hx Hypertension: Yes Hx CVA: Yes Hx Heart Attack/AMI: Yes (x 2 with stents) Hx Congestive Heart Failure: Yes Hx Diabetes: Yes Hx Renal Disease: Yes Hx Asthma: No Hx COPD: Yes Hx HIV: No Additional medical history: BPH, Pacemaker - Surgical History Hx Coronary Stent: Yes Hx Pacemaker: Yes Hx Internal Defibrillator: Yes Hx Appendectomy: Yes Additional Surgical History: HERNIA SURGERY, Pacemaker - Social History Smoking Status: Former Smoker (None x1 month) Substance Use Type: None (Denies illicit drug use) - Medications Home Medications: Home Medications Medication Instructions Recorded Confirmed Last Taken Type Promethazine [Phenergan] 25 mg PO Q8HR PRN #14 tab 05/25/20 Unknown Rx Martha Root [Martha] 250 mg PO QID PRN #30 capsule 09/04/20 Unknown Rx Metoclopramide [Reglan] 10 mg PO QID PRN #30 tablet 09/04/20 Unknown Rx Pantoprazole [Protonix TAB] 20 mg PO QDAY #30 tablet.dr 09/04/20 Unknown Rx levETIRAcetam [Keppra TAB] 500 mg PO BID #60 tablet 09/04/20 Unknown Rx levoFLOXacin [Levaquin] 750 mg PO QDAY #5 tablet 10/30/20 Unknown Rx HYDROcodone/APAP 5-325 [Diagonal 1 each PO Q6HR PRN #10 tablet 09/06/21 Unknown Rx 5/325] Pantoprazole [Protonix] 40 mg PO QDAY #30 tablet 09/06/21 Unknown Rx Promethazine [Phenergan] 25 mg PO Q6HR PRN #20 tab 09/06/21 Unknown Rx Promethazine [Phenergan] 25 mg ME Q6HR PRN #5 supp.rect 09/06/21 Unknown Rx ED Physical Exam - General Limitations: No Limitations General appearance: alert, in no apparent distress - Head Head exam: Present: normal inspection - Eye Eye exam: Present: normal appearance Pupils: Present: normal accommodation - ENT ENT exam: Present: normal exam, normal orophraynx, mucous membranes moist - Neck Neck exam: Present: normal inspection, full ROM. Absent: tenderness - Respiratory Respiratory exam: Present: normal lung sounds bilaterally. Absent: respiratory distress, accessory muscle use - Cardiovascular Cardiovascular Exam: Present: regular rate, normal rhythm, normal heart sounds - GI/Abdominal GI/Abdominal exam: Present: soft, normal bowel sounds. Absent: distended, tenderness - Extremities Exam Extremities exam: Present: normal inspection, full ROM, normal capillary refill. Absent: tenderness, pedal edema, joint swelling - Back Exam Back exam: Absent: tenderness - Neurological Exam Neurological exam: Present: alert, oriented X3 - Psychiatric Psychiatric exam: Present: normal affect, normal mood - Skin Skin exam: Present: warm, normal color ED Course Vital Signs 10/01/21 10/01/21 10/01/21 04:47 11:24 11:30 Temperature 98.3 F 98.4 F Pulse Rate 93 H 82 Respiratory 18 20 18 Rate Blood Pressure 128/62 Blood Pressure 128/83 [Left] O2 Sat by Pulse 99 98 99 Oximetry - Reevaluation(s) Reevaluation #1: 10/01/21 14:06 I called and spoke with Stefany for mental health consulted who suggested having a second opinion on this patient and defer to Deedee Reyes. Pt plan to call her immediately to see patient while on her round. ED Medical Decision Making - Lab Data Result diagrams: 10/01/21 05:02 10/01/21 13:08 - Medical Decision Making Here with suicidal ideation and thought -- will go ahead and order routine psychiatry labs and have mental health consult on patient and place 1013 after reviewing patients lab result.. Noted with elevated blood sugar 564 mg/dl -- but with normal anion gap-- this is likely as a result of hyperglycemia state-- given insulin 10 units sq-- Pt seen by Deedee who recommend 1013 considering this patient presentation -- Critical care attestation.: If time is entered above; I have spent that time in minutes in the direct care of this critically ill patient, excluding procedure time. ED Disposition Clinical Impression: Suicidal ideations, Hyperglycemia Disposition: 30 STILL A PATIENT Is pt being admited?: No Does the pt Need Aspirin: No Condition: Stable Time of Disposition: 14:48
[2021-10-01 12:39] LABS: Bilirubin,Urine NEG (Negative); Blood,Urine NEG (Negative); Color,Urine Straw (Yellow); Protein,Urine <15 mg/dL mg/dL (Negative); Urobilinogen,Urine < 2.0 mg/dL (<2.0)
[2021-10-01 12:48] LABS: Amphetamine Screen,Urine Negative; Benzodiazepines Screen,Urine Negative; Cannabinoid Screen,Urine Negative; Methadone Screen,Urine Negative; Opiate Screen,Urine Negative
[2021-10-01 13:01] LABS: Cocaine Screen,Urine Positive
--- NOTE | 2021-10-01 14:09 | Consultation ---
History of Present Illness - Reason for Consult Consult date: 10/01/21 Reason for consult: mental health evaluation - History of Present Psychiatric Illness HPI: 56-year-old male with a history of anxiety and depression currently taking Seroquel who now presents with suicidal ideation that has been intermittent in the last 2 weeks. Patient reported that he has not been taking his medication for the last 1 to 2 weeks. When asked he said he does not know the reason. Patient reports suicidal ideation by slashing his wrist. He said he has done that in the past. No homicidal ideation reported. No other modifying or associated factors reported. Patient however was seen in the emergency room yesterday for pacemaker/ICD dysfunction and was clear and discharge in the afternoon. Shortly after discharge patient signed back in to the emergency room to be seen for suicidal ideation. The patient is a 56 year old male with history of schizophrenia and bipolar disorder. The patient was seen today. He reports that he initially came to the ED due to chest pain" I have a lot of medical problems." He reports ongoing depression and suicidal ideation x 2 weeks; he states his brother was killed about 3 months ago " I don't want to live anymore, I have tried everything, today, I want stop in front of a moving car. " He also admits having auditory hallucinations " voices telling me to harm myself." PAST PSYCHIATRIC HISTORY Diagnoses: Bipolar and Schizophrenia Suicide attempts or Self-harm behavior: Yes Prior psychiatric hospitalizations: yes Substance Abuse history:Cocaine Previous psychiatric medications tried: Seroquel Outpatient treatment: unknown PAST MEDICAL HISTORY: none reported Family Psychiatric History: None reported or documented SOCIAL HISTORY Marital Status: Single Living Arrangements: Lives with sister Employment Status: unemployed Access to guns/weapons: none reported Education: 9th History of Abuse: none reported Legal History: yes REVIEW OF SYSTEMS Constitutional: Negative for weight loss ENT: Negative for stridor Respiratory: Negative for cough or hemoptysis All other systems reviewed and are negative MENTAL STATUS EXAMINATION General Appearance and Behavior: Age appropriate, poor hygiene, wearing appropriate clothes, good eye contact, cooperative irritable with questioning. Cooperation: Guarded Psychomotor Behavior: , unremarkable and within normal limits Mood: Depressed Affect and affective range: Congruent with stated mood Thought Process: Goal directed Thought Content: Suicidal Intellectual Functioning: Average Suicidal Ideation: Yes Homicidal Ideation: Denies HI hallucinations: Intermittent auditory Impulse Control: Questionable Insight and Judgment: Limited insight and poor judgment Memory: Normal Attention: Normal Orientation: Alert, oriented x3 Assessment and Plan - Psychiatric problem (1) Schizophrenia Current Visit: Yes Status: Acute RECOMMENDATIONS 1013 MEDICATIONS: Continue home meds Start Seroquel 50mg po qhs Risks, benefits and alternatives of medications discussed with the patient, qu estions answered and consent obtained from patient. PSYCHOTHERAPY: Supportive psychotherapy provided MEDICAL: Per primary team DELIRIUM PRECAUTIONS: Please re-orient patient frequently, keep lights on during the day, and minimize benzodiazepines and opiates as these medications could worsen patient's confusion. MEDICAL CARE ADMINISTRATOR: Per medical team DISPOSITION: Recommends acute inpatient psychiatric hospitalization at this time FOLLOW-UP: Will follow Thank you for the consult. Please contact with any questions and/or concerns. Medications and Allergies Allergies Allergy/AdvReac Type Severity Reaction Status Date / Time No Known Allergies Allergy Verified 09/26/21 13:03 Home Medications Medication Instructions Recorded Confirmed Last Taken Type Promethazine [Phenergan] 25 mg PO Q8HR PRN #14 tab 05/25/20 Unknown Rx Martha Root [Martha] 250 mg PO QID PRN #30 capsule 09/04/20 Unknown Rx Metoclopramide [Reglan] 10 mg PO QID PRN #30 tablet 09/04/20 Unknown Rx Pantoprazole [Protonix TAB] 20 mg PO QDAY #30 tablet. 09/04/20 Unknown Rx levETIRAcetam [Keppra TAB] 500 mg PO BID #60 tablet 09/04/20 Unknown Rx levoFLOXacin [Levaquin] 750 mg PO QDAY #5 tablet 10/30/20 Unknown Rx HYDROcodone/APAP 5-325 [[place] 1 each PO Q6HR PRN #10 tablet 09/06/21 Unknown Rx 5/325] Pantoprazole [Protonix] 40 mg PO QDAY #30 tablet 09/06/21 Unknown Rx Promethazine [Phenergan] 25 mg PO Q6HR PRN #20 tab 09/06/21 Unknown Rx Promethazine [Phenergan] 25 mg DE Q6HR PRN #5 supp.rect 09/06/21 Unknown Rx Mental Status Exam - Vital signs Last Vital Signs Temp 98.4 F 10/01/21 11:24 Pulse 82 10/01/21 11:24 Resp 18 10/01/21 11:30 BP 128/83 10/01/21 11:24 Pulse Ox 99 10/01/21 11:30 Results Result Diagrams: 10/01/21 05:02 10/01/21 13:08 Abnormal lab results 10/01/21 10/01/21 10/01/21 Range/Units 05:02 05:02 05:02 [place] % (Auto) (0.0-7.3) % Sodium 133 L (137-145) mmol/L Glucose 408 H (75-100) mg/dL Salicylates < 0.3 L (2.8-20.0) mg/dL Acetaminophen 5.0 L (10.0-30.0) ug/mL 10/01/21 Range/Units 05:02 [place] % (Auto) 10.7 H (0.0-7.3) % Sodium (137-145) mmol/L Glucose (75-100) mg/dL Salicylates (2.8-20.0) mg/dL Acetaminophen (10.0-30.0) ug/mL All other labs normal.
[2021-10-01 14:14] LABS: BUN/Creatinine Ratio 13; Blood Urea Nitrogen 16 mg/dL (9-20); Calcium 9.3 mg/dL (8.4-10.2); Hemolysis Index 46
[2021-10-01] MEDS ORDERED: INSULIN REGULAR, HUMAN 100 UNITS/1 ML SUB-Q ONE (14:48)
[2021-10-01] MEDS ORDERED: QUEtiapine 25 MG TAB PO SCH (22:00)
[2021-10-02 08:34] VITALS: BP 98/49
--- NOTE | 2021-10-02 09:55 | Progress Note ---
Subjective - Reason for Consult Consult date: 10/02/21 Reason for consult: suicidal ideation - Chief Complaint Chief complaint: The patient was seen this morning. He reports feeling better. He states sleep and appetite as good. he denies any current suicidal/homicidal ideation and denies hallucinations. REVIEW OF SYSTEMS Constitutional: Negative for weight loss ENT: Negative for stridor Respiratory: Negative for cough or hemoptysis All other systems reviewed and are negative MENTAL STATUS EXAMINATION General Appearance and Behavior: Age appropriate,fair hygiene, wearing appropriate clothes, good eye contact, cooperative with questioning. Cooperation: engaging Psychomotor Behavior: unremarkable and within normal limits Mood: Calm Affect and affective range: Congruent with stated mood Thought Process: Goal directed Thought Content: Reality oriented Intellectual Functioning: Average Suicidal Ideation: Denies Homicidal Ideation: Denies hallucinations: Denies Impulse Control: Normal Insight and Judgment: Limited insight and judgment Memory: Normal Attention: Normal Orientation: Alert, oriented x3 Assessment and Plan - Psychiatric problem (1) Schizophrenia Current Visit: Yes Status: Acute RECOMMENDATIONS DC 1013 MEDICATIONS: Continue home meds Continue Seroquel 50mg po qhs Risks, benefits and alternatives of medications discussed with the patient, questions answered and consent obtained from patient. PSYCHOTHERAPY: Supportive psychotherapy provided MEDICAL: Per primary team DELIRIUM PRECAUTIONS: Please re-orient patient frequently, keep lights on during the day, and minimize benzodiazepines and opiates as these medications could worsen patient's confusion. YOUTH SPECIALIST: Per medical team DISPOSITION:Do not recommends acute inpatient psychiatric hospitalization at this time. [employer] will provide patient with psychiatric out patient resources. FOLLOW-UP: Will sign off. Thank you for the consult. Please contact with any questions and/or concerns. Mental Status Exam - Vital signs Last Vital Signs Temp 98.5 F 10/02/21 08:33 Pulse 87 10/02/21 08:33 Resp 18 10/02/21 08:33 BP 98/49 10/02/21 08:33 Pulse Ox 96 10/02/21 08:40
--- NOTE | 2021-10-02 12:55 | Event Note ---
Date: 10/02/21 The patient was evaluated in the emergency department for symptoms described in the history of present illness. He/she was evaluated in the context of the global COVID-19 pandemic, which necessitated consideration that the patient might be at risk for infection with the virus that causes COVID-19. Institutional protocols and algorithms that pertain to the evaluation of patients at risk for COVID-19 are in a state of rapid change based on information released by regulatory bodies including the CDC and federal and state organizations. These policies and algorithms were followed during the patient's care in the emergency department. Please note that these policies, procedures and recommendations changed on a rapid basis. Patient seen and examined. He denies physical pain. His 1013 has been discontinued. I evaluated his laboratory studies from yesterday. I have gone through his old and prior documentation and nursing documentation I recommended repeat Accu-Chek, repeat laboratory studies and repeat evaluation. The patient is refusing further intervention. I explained the risks of untreated high blood sugar, including , disability, paralysis, and loss of quality of life. Patient is awake and alert, of sound mind, and currently exhibits decision-making capacity. He understands the risks of leaving, including , disability, paralysis, and loss of quality of life. He is encouraged to return to the emergency room right away if and when he changes his mind
== END 2021-10-02 13:45 | disposition left against medical advice (07) ==
LOC: ED 02:01
DX: R45.851 Suicidal ideations (principal); E11.65 Type 2 diabetes mellitus with hyperglycemia; Z20.822 Contact with and (suspected) exposure to COVID-19; I11.0 Hypertensive heart disease with heart failure; I50.9 Heart failure, unspecified; J44.9 Chronic obstructive pulmonary disease, unspecified; Z90.49 Acquired absence of other specified parts of digestive tract; Z87.891 Personal history of nicotine dependence; Z79.899 Other long term (current) drug therapy
CPT/HCPCS: 36415; 80048; 80307; 81001; 85025; 99284; U0003; 80320; 99283; Q9967; G0480; J1815

== ENCOUNTER 2021-11-16 12:32 | Emergency (ER) | payer SELFPAY ==
[2021-11-16 13:06] VITALS: BP 90/50
== END 2021-11-17 18:52 | disposition left against medical advice (07) ==
LOC: ED 12:32
DX: R07.89 Other chest pain (principal); Z53.21 Procedure and treatment not carried out due to patient leaving prior to being seen by health care provider